=== PATIENT | male | born 1960 | race Caucasian/White ===

== ENCOUNTER → 2016-09-07 | Outpatient (CLI) | payer BC ==
--- NOTE | 2016-09-08 10:35 | PE ---
EXAMINATION TYPE: PET CT fusion skull to thigh DATE OF EXAM: 09/07/2016 11:55 AM CLINICAL HISTORY: 55-year-old male history of colon cancer, restaging. Patient with last chemotherapy on 08/20/2016. TECHNIQUE: Following the intravenous administration of 13.68 mCi of F-18 FDG, whole body images are performed from the skull base to the midthigh. Images are reviewed on the computer in the coronal, axial, and sagittal planes. Reconstructed rotating images are created on independent workstation and reviewed on the computer. A localization and attenuation correction CT is performed in conjunction with the PET scan. Glucose level: 78 mg/dL COMPARISON: 06/22/2016 FINDINGS: PET: Physiologic FDG uptake within the neck. No thoracic lymphadenopathy by CT size criteria. Bilateral hilar lymph nodes show variable mild to oralia rderline moderate hypermetabolism particularly in the right hilum, maximal SUV 3.2. This is in compar oli to maximal SUV of 2.2, previously. Some nodularity in the medial right middle lobe measures 7 mm and is smaller as compared to prior exa m suggesting an infectious/inflammatory etiology. No discrete FDG uptake. There is interval development of severe right-sided hydronephrosis. There is no excretion of FDG from the right kidney compatible with a severe obstruction. Overall soft tissue within the right pelvis is relatively similar though soft tissue extending up to the right lower retroperitoneum has increased. All of the soft tissue now shows very intense hypermet abolism, maximum SUV 18.1 in the lower retroperitoneum and 15.3 in the right pelvis. Overall dimension based on the metabolically active soft tissue is 7.7 cm AP by up to 4.2 cm wide, an d up to 7.9 cm craniocaudal. Some of these areas are discontinuous suggesting separate masses that ex tend from the right lower abdominal retroperitoneum and down into the pelvis along the anterior jose n of the right sacral ala and along the right superior perirectal region. The right ureter course since into this region. Heterogeneity with mixed lucency and sclerosis of the right sacrum is unchanged and there is no assoc iated hypermetabolism in this area. Findings suggest site of treated disease. There is focal intense FDG uptake at the distal rectum/anus, maximal SUV 9.3 versus 4.7, previously. ATTENUATION CORRECTION CT: Right anterior chest wall injection port with catheter tip at the upper SVC. Paranasal sinuses and mastoid air cells well pneumatized. No cervical lymphadenopathy seen. Heart is normal size with a new small pericardial effusion anteriorly measuring 7 mm thick. Aortic ro ot is borderline ectatic at 3.5 cm. 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 No consolidation or pleural effusion. Moderate bilat eral gynecomastia. The spleen remains mildly enlarged at 14.7 cm. Benign ametabolic 1.9 cm cyst in the central right hep atic lobe. Bones: No new osseous destructive process is seen. IMPRESSION: 1. Disease recurrence with the previously seen soft tissue in the right pelvis abutting the anterior margin of the right sacral ala and extending to the superior right perirectal space now showing very intense hypermetabolism. There is new upward extension of mass or lymphadenopathy to the lower right retroperitoneum with an aggregate craniocaudal dimension of up to 7.9 cm. 2. The right ureter courses into this mass resulting in a severe obstructive uropathy. 3. Focal intense hypermetabolism at the distal rectum/anus shows increasing FDG uptake. This may be p hysiologic or represent some inflammation. Correlate with direct visualization to exclude a site of n eoplasm. 4. Variable mild and borderline moderate FDG uptake within nonenlarged bilateral hilar lymph nodes is likely reactive/post inflammatory. Continued follow-up recommended as a right hilar lymph node shows increasing uptake (maximal SUV 3.2 versus 2.2, previously).
== END | disposition home or self-care (01) ==
LOC: RADPETMAIN 08:27
PROVIDERS: ATTEND Internal Medicine Hematology & Oncology
DX: C18.9 Malignant neoplasm of colon, unspecified (principal); N13.9 Obstructive and reflux uropathy, unspecified
CPT/HCPCS: 78815; A9552

== ENCOUNTER → 2016-11-30 | Outpatient (CLI) | payer BC ==
--- NOTE | 2016-12-01 09:32 | PE ---
EXAMINATION TYPE: PET CT fusion skull to thigh DATE OF EXAM: 11/30/2016 11:20 AM CLINICAL HISTORY: 56-year-old male restaging colon cancer, last chemotherapy on 11/20/2016. TECHNIQUE: Following the intravenous administration of 15.5 mCi of F-18 FDG, whole body images are performed from the skull base to the midthigh. Images are reviewed on the computer in the coronal, a xial, and sagittal planes. Reconstructed rotating images are created on independent workstation and reviewed on the computer. A localization and attenuation correction CT is performed in conjunction with the PET scan. Glucose level: 80 mg/dL COMPARISON: 09/07/2016 FINDINGS: PET: There is linear muscular uptake involving the middle or posterior left scalene in the neck. Otherwise , physiologic FDG uptake within the neck. There is variable residual mild FDG uptake within bilateral hilar lymph nodes, decreased from prior m easuring up to 1.7 on the right and 1.9 on the left, maximum SUV. This is most suggestive of reactive /post inflammatory uptake. A 2 cm a metabolic cyst central right hepatic lobe may be minimally larger. Redemonstrated severe hydronephrosis on the right with hydroureter with the ureter coursing into rigoberto lomerate right sided intensely hypermetabolic soft tissue, likely lymphadenopathy along the lower rig ht retroperitoneum along the common iliac chain. This abnormal soft tissue continues down along the right pelvic sidewall to the right superior perire ctal space abutting the anterior margin of the right sacral ala. Overall extent of soft tissue is rel atively similar, measuring up to 5.5 cm AP by 3.3 cm wide by 9.0 cm craniocaudal. This is in comparis on to 7.7 x 4.2 x 7.9 cm, previously. Overall unchanged allowing for some differences in measurement technique. Maximal SUV of the lower right retroperitoneum conglomerate mass is 15.4 versus 18.1, previously and in the right pelvis is 13.3 versus 15.3, previously. A new right pelvic sidewall lymph node now measures 1.7 cm, axial image 202 with intense hypermetabol ism, maximum SUV 6.8. Some focal uptake within the left pelvis likely activity within the distal ureter. There is a nonenlarged 7 mm left inguinal chain lymph node that shows mild FDG uptake, maximal SUV 2. 8, new from prior exam. Presacral edema and soft tissue tissue stranding throughout the fat of the pelvis likely relates to p osttreatment change. There is a staple line relating to distal rectal anastomosis and chronic bony de formity to the ischial spine and right sacrum from prior disease involvement. Currently, no suspiciou s metabolic activity here. Continued intense hypermetabolism along the rectum now involving a longer segment, maximal SUV 9.6 ve rsus 9.3, previously. ATTENUATION CORRECTION CT: Right anterior chest wall injection port with catheter tip at the upper to mid SVC. Moderate mucosal thickening floor of the left maxillary sinus and mild on the right. Mastoid air cell s are pneumatized. No cervical lymphadenopathy. Heart is normal size with trace residual pericardial fluid, decreased from prior. Ascending aorta aga in noted to be borderline ectatic at 3.5 cm. There is right-sided aortic arch with aberrant left subc lavian artery arising from a diverticulum of Kommerell. Redemonstrated moderate bilateral gynecomast ia. No consolidation or pleural effusion. Gallbladder is mildly hydropic without pericholecystic inflammation. Spleen remains enlarged at 14.4 cm. No dilated small bowel, free fluid, or free air. Bones: Chronic bony changes of the right ischium and right sacrum as mentioned above. No new osseous destructive process is seen. IMPRESSION: 1. Continued very intense hypermetabolism involving a conglomerate mass extending from the lower righ t retroperitoneum down along the right pelvic sidewall along the anterior margin of the right sacral ala and to the superior right perirectal space spanning nearly 9 cm. SUV values have decreased by a n egligible amount and overall measurements are relatively similar. 2. In addition, there is a new 7 mm intensely hypermetabolic right pelvic sidewall metastatic lymph n ode and suspicious 7 mm left inguinal chain lymph node as well. 3. Continued intense FDG uptake now involving a longer segment of rectum which is nonspecific. This c ould be physiologic or could represent colitis. Again, correlate with direct visualization to exclude a second site of neoplasm. 4. The right ureter again noted to course into the abnormal soft tissue with continued severe obstruc tive uropathy. 5. Previous bilateral hilar hypermetabolism has diminished suggesting benign reactive/post inflammato ry uptake here. 6. Gallbladder hydrops may relate to fasting state. If there is right upper quadrant pain or concern for early acute cholecystitis, follow-up ultrasound or HIDA scan. 7. Stable mild splenomegaly.
== END | disposition home or self-care (01) ==
LOC: RADPETMAIN 08:24
PROVIDERS: ATTEND Internal Medicine Hematology & Oncology
DX: C77.5 Secondary and unspecified malignant neoplasm of intrapelvic lymph nodes (principal); C18.9 Malignant neoplasm of colon, unspecified; N13.9 Obstructive and reflux uropathy, unspecified; K82.1 Hydrops of gallbladder; R16.1 Splenomegaly, not elsewhere classified
CPT/HCPCS: 78815; A9552

== ENCOUNTER → 2017-03-22 | Outpatient (CLI) | payer BC ==
--- NOTE | 2017-03-24 12:15 | PE ---
Nuclear medicine PET/CT HISTORY: Colon carcinoma Patient received 11.7 mCi F-18 FDG intravenously and delayed scanning performed from the skull base t hrough the mid thighs. Localization and attenuation correction CT scan was performed. Correlation to prior nuclear medicine PET/CT dated 11/30/2016 Neck and chest: There is no evident lung mass. No adenopathy. Right-sided thoracic aorta is present w ith aberrant left subclavian artery. No pleural or pericardial effusion. Port-A-Cath in the right pec jenny region shows catheter coursing into the right internal jugular vein, distal tip in the superior vena cava. Possible gynecomastia noted bilaterally. Abdomen pelvis: There is marked right-sided hydronephrosis and hydroureter present, pooling of the ra diopharmaceutical noted in the distal dilated right ureter. Urinary bladder shows a thickened wall, t here are prostate calcifications as on prior exam. Postop changes in the rectosigmoid region again se en. There is no retroperitoneal adenopathy. Spleen is enlarged. Low dense focus again noted within th e right lobe of liver is stable. Focus of uptake corresponding to right external iliac lymph node in the right hemipelvis is not seen on today's exam, the lymph node has decreased in size. Presacral upt svetlana is less significant, soft tissue density persists, SUV is 4.9. Uptake at the level of the rectum is somewhat less extensive.. Osseous structures are stable. Increased uptake in the left shoulder likely due to muscular activity, arthropathy. IMPRESSION: Improvement in hypermetabolic uptake in the pelvis as described.
== END | disposition home or self-care (01) ==
LOC: RADPETMAIN 09:28
PROVIDERS: ATTEND Internal Medicine Hematology & Oncology
DX: C18.7 Malignant neoplasm of sigmoid colon (principal)
CPT/HCPCS: 78815; A9552

== ENCOUNTER 2018-01-11 10:14 | Inpatient (IN) | payer BC ==
[2018-01-11] MEDS ORDERED: SODIUM CHLORIDE 0.9% 2,000 ML IV STA (10:32)
[2018-01-11] MEDS ORDERED: MORPHINE SULFATE 4 MG/ML SYRINGE IV STA (10:32)
[2018-01-11] MEDS ORDERED: ACETAMINOPHEN TAB 500 MG TAB PO STA (10:34)
[2018-01-11] MEDS ORDERED: LIDOCAINE 2% GEL 5 ML TUBE TOPICAL STA (10:35)
[2018-01-11] MEDS ORDERED: LIDOCAINE VISCOUS 2% 15 ML CUP MUCOUS MEM ONE (10:37)
--- NOTE | 2018-01-11 10:42 | ED ---
Abdominal Pain HPI - General Source: patient, RN notes reviewed, old records reviewed Mode of arrival: ambulatory Limitations: no limitations <Sis Alves - Last Filed: 01/11/18 15:48> <Tello Olivia - Last Filed: 01/17/18 09:52> - General Chief Complaint: Abdominal Pain Stated Complaint: Pain/Fever/Nausea Time Seen by Provider: 01/11/18 10:21 - History of Present Illness Initial Comments: this is a pleasant [id number] male with chief complaint of right lower quadrant pain radiating towards his right upper quadrant since 9 PM yesterday evening. Patient reports that he has had a fever and chills. He states that ge has vomited a proximally 45 times. He states that due to where the tumor was on his: He had an obstruction of his right ureter. He subsequently developed loss of his right kidney function. Patient states that he was evaluated at [facility] for similar complaints in May 2017. Then transferred [facility] and was in the ICU for 20 days. Patient states that he's had a colon resection in [address] Sanz. He states he's had no bloody bowel movements. Denies any urinary changes. Denies any upper respiratory symptoms including chest pain, shortness of breath.Patient's oncologist is Dr. Tariq. (Sis Alves) - Related Data Home Medications Medication Instructions Recorded Confirmed Apixaban [Eliquis] 2.5 mg PO BID 01/11/18 01/16/18 Capecitabine [Xeloda] 2,000 mg PO BID 01/11/18 01/16/18 Diphenox-Atrop 2.5-0.025 mg 1 tab PO QID PRN 01/11/18 01/16/18 [Lomotil] Gabapentin [Neurontin] 100 mg PO DAILY@1200 01/11/18 01/16/18 Gabapentin [Neurontin] 200 mg PO BID 01/11/18 01/16/18 oxyCODONE-APAP 10-325MG [Percocet 1 - 2 tab PO Q6HR PRN 01/11/18 01/16/18 10-325 mg] Previous Rx's Medication Instructions Recorded Levofloxacin [Levaquin] 500 mg PO DAILY@1200 #7 tab 01/14/18 Tamsulosin [Flomax] 0.4 mg PO PC-BRKFST #30 cap.er.24h 01/14/18 Allergies Allergy/AdvReac Type Severity Reaction Status Date / Time No Known Allergies Allergy Verified 01/16/18 13:04 Review of Systems ROS Other: All systems not noted in ROS Statement are negative. <Sis Alves - Last Filed: 01/11/18 15:48> ROS Other: All systems not noted in ROS Statement are negative. <Tello Olivia - Last Filed: 01/17/18 09:52> ROS Statement: Those systems with pertinent positive or pertinent negative responses have been documented in the HPI. Past Medical History Past Medical History: Cancer Additional Past Medical History / Comment(s): colon cancer, right sided kidney failure History of Any Multi-Drug Resistant Organisms: C-DIFF Date of last positivie culture/infection: 2015 Past Surgical History: Bowel Resection Past Psychological History: No Psychological Hx Reported Smoking Status: Never smoker Past Alcohol Use History: None Reported Past Drug Use History: None Reported <LongSis perez - Last Filed: 01/11/18 15:48> General Exam Limitations: no limitations General appearance: alert, in no apparent distress Head exam: Present: atraumatic, normocephalic, normal inspection Eye exam: Present: normal appearance, PERRL, EOMI. Absent: scleral icterus, conjunctival injection, periorbital swelling ENT exam: Present: normal exam, mucous membranes moist Neck exam: Present: normal inspection. Absent: tenderness, meningismus, lymphadenopathy Respiratory exam: Present: normal lung sounds bilaterally. Absent: respiratory distress, wheezes, rales, rhonchi, stridor Cardiovascular Exam: Present: regular rate, normal rhythm, normal heart sounds. Absent: systolic murmur, diastolic murmur, rubs, gallop, clicks GI/Abdominal exam: Present: soft, tenderness (patient is guarding and right lower quadrant tenderness.), guarding, normal bowel sounds, other (well- appearing incision site over the mid abdomen.). Absent: distended, rebound, rigid Extremities exam: Present: normal inspection, full ROM, normal capillary refill. Absent: tenderness, pedal edema, joint swelling, calf tenderness Back exam: Present: normal inspection Neurological exam: Present: alert, oriented X3, CN II-XII intact Psychiatric exam: Present: normal affect, normal mood Skin exam: Present: warm, dry, intact, normal color. Absent: rash <Sis Alves - Last Filed: 01/11/18 15:48> <Tello Olivia - Last Filed: 01/17/18 09:52> - General Exam Comments Initial Comments: 57-year-old male. Patient appears in moderate discomfort. (Sis Alves) Course <Sis Alves - Last Filed: 01/11/18 15:48> <Tello Olivia - Last Filed: 01/17/18 09:52> Vital Signs 01/11/18 01/11/18 01/11/18 10:14 13:19 14:46 Temperature 100.3 F H 101.1 F H 100.1 F H Pulse Rate 83 78 Respiratory 18 20 Rate Blood Pressure 167/88 151/77 O2 Sat by Pulse 100 99 Oximetry 01/11/18 01/11/18 15:56 16:07 Temperature 98.9 F Pulse Rate 67 60 Respiratory 18 18 Rate Blood Pressure 159/75 148/78 O2 Sat by Pulse 98 98 Oximetry - Reevaluation(s) Reevaluation #1: 01/11/18 15:30 Patient was reevaluated by myself, Dr. Olivia. Patient still has significant discomfort when questioned about his abdomen. Abdomen is soft with mild tenderness. CT results reviewed. Patient and family updated on results and plan. Case was discussed in detail with Dr. Frost, covering for Dr. Tariq who does recommend medical admission and does agree with IV antibiotics and neurology consult. Dr. Hay has been paged for admission for Dr. Russ. 01/11/18 15:38 Patient does not meet sepsis criteria at this time. 01/11/18 16:00 Case was discussed with Dr. Hay, who will admit. (Tello Olivia) Medical Decision Making - Lab Data Result diagrams: 01/11/18 10:57 01/11/18 10:57 - Radiology Data Radiology results: report reviewed <Sis Alves - Last Filed: 01/11/18 15:48> - Lab Data Result diagrams: 01/13/18 07:31 01/13/18 07:31 <Tello Olivia - Last Filed: 01/17/18 09:52> - Medical Decision Making 57-year-old male presents to the emergency Department chief complaint of right lower quadrant pain and fever. He wrestled fever 100.4. After Tylenol was 101. Patient was given aggressive fluid hydration. He does have history of colon cancer with resection in 2013. Patient's labwork was reviewed and negative for any significant changes, he did have evidence of a urinary tract infection. Started the patient on Levaquin. Patient CT was performed without contrast this patient informed me that he has right sided kidney failure due to his colon cancer. CT did not show any major infectious process. At this time we will admit the patient and have counseled to Dr. Tariq his oncologist and urology. All questions answered. (Sis Alves) - Lab Data Lab Results 01/11/18 01/11/18 01/11/18 Range/Units 10:57 10:57 10:57 WBC 8.7 (3.8-10.6) k/uL RBC 3.99 L (4.30-5.90) m/uL Hgb 13.7 (13.0-17.5) gm/dL Hct 38.8 L (39.0-53.0) % MCV 97.1 (80.0-100.0) fL MCH 34.2 (25.0-35.0) pg MCHC 35.2 (31.0-37.0) g/dL RDW 17.7 H (11.5-15.5) % Plt Count 153 (150-450) k/uL Neutrophils % 87 % Lymphocytes % 6 % Monocytes % 5 % Eosinophils % 2 % Basophils % 0 % Neutrophils # 7.5 (1.3-7.7) k/uL Lymphocytes # 0.5 L (1.0-4.8) k/uL Monocytes # 0.5 (0-1.0) k/uL Eosinophils # 0.2 (0-0.7) k/uL Basophils # 0.0 (0-0.2) k/uL Anisocytosis Slight Macrocytosis Slight Sodium 141 (137-145) mmol/L Potassium 5.1 (3.5-5.1) mmol/L Chloride 104 (98-107) mmol/L Carbon Dioxide 23 (22-30) mmol/L Anion Gap 14 mmol/L BUN 19 (9-20) mg/dL Creatinine 1.01 (0.66-1.25) mg/dL Est GFR (CKD-EPI)AfAm >90 (>60 ml/min/1.73 sqM) Est GFR (CKD-EPI)NonAf 81 (>60 ml/min/1.73 sqM) Glucose 150 H (74-99) mg/dL Plasma Lactic Acid Ruel 1.5 (0.7-2.0) mmol/L Calcium 9.6 (8.4-10.2) mg/dL Total Bilirubin 1.9 H (0.2-1.3) mg/dL AST 41 (17-59) U/L ALT 27 (21-72) U/L Alkaline Phosphatase 62 (38-126) U/L Total Protein 8.4 H (6.3-8.2) g/dL Albumin 4.8 (3.5-5.0) g/dL Amylase 47 (30-110) U/L Lipase 36 (23-300) U/L Urine Color Urine Appearance (Clear) Urine pH (5.0-8.0) Ur Specific Custer (1.001-1.035) Urine Protein (Negative) Urine Glucose (UA) (Negative) Urine Ketones (Negative) Urine Blood (Negative) Urine Nitrite (Negative) Urine Bilirubin (Negative) Urine Urobilinogen (<2.0) mg/dL Ur Leukocyte Esterase (Negative) Urine RBC (0-5) /hpf Urine WBC (0-5) /hpf Amorphous Sediment (None) /hpf Hyaline Casts (0-2) /lpf Urine Mucus (None) /hpf 01/11/18 Range/Units 14:43 WBC (3.8-10.6) k/uL RBC (4.30-5.90) m/uL Hgb (13.0-17.5) gm/dL Hct (39.0-53.0) % MCV (80.0-100.0) fL MCH (25.0-35.0) pg MCHC (31.0-37.0) g/dL RDW (11.5-15.5) % Plt Count (150-450) k/uL Neutrophils % % Lymphocytes % % Monocytes % % Eosinophils % % Basophils % % Neutrophils # (1.3-7.7) k/uL Lymphocytes # (1.0-4.8) k/uL Monocytes # (0-1.0) k/uL Eosinophils # (0-0.7) k/uL Basophils # (0-0.2) k/uL Anisocytosis Macrocytosis Sodium (137-145) mmol/L Potassium (3.5-5.1) mmol/L Chloride (98-107) mmol/L Carbon Dioxide (22-30) mmol/L Anion Gap mmol/L BUN (9-20) mg/dL Creatinine (0.66-1.25) mg/dL Est GFR (CKD-EPI)AfAm (>60 ml/min/1.73 sqM) Est GFR (CKD-EPI)NonAf (>60 ml/min/1.73 sqM) Glucose (74-99) mg/dL Plasma Lactic Acid Ruel (0.7-2.0) mmol/L Calcium (8.4-10.2) mg/dL Total Bilirubin (0.2-1.3) mg/dL AST (17-59) U/L ALT (21-72) U/L Alkaline Phosphatase (38-126) U/L Total Protein (6.3-8.2) g/dL Albumin (3.5-5.0) g/dL Amylase (30-110) U/L Lipase (23-300) U/L Urine Color Yellow Urine Appearance Clear (Clear) Urine pH 5.5 (5.0-8.0) Ur Specific Custer 1.022 (1.001-1.035) Urine Protein 1+ H (Negative) Urine Glucose (UA) Negative (Negative) Urine Ketones Negative (Negative) Urine Blood Small H (Negative) Urine Nitrite Negative (Negative) Urine Bilirubin Negative (Negative) Urine Urobilinogen <2.0 (<2.0) mg/dL Ur Leukocyte Esterase Small H (Negative) Urine RBC 5 (0-5) /hpf Urine WBC 36 H (0-5) /hpf Amorphous Sediment Rare H (None) /hpf Hyaline Casts 3 H (0-2) /lpf Urine Mucus Occasional H (None) /hpf - Radiology Data Findings compatible with patient's history of metastatic colon carcinoma. There has been interval increase in markedly hydro-nephrotic right kidney and hydroureter. There is likely secondary involvement of the ureter. Splenomegaly. Noncontrast exam noted. (Sis Alves) Disposition Is patient prescribed a controlled substance at d/c from ED?: No When asked, does pt state using other controlled substances?: No If prescribed controlled substance>3 days was MAPS reviewed?: No Time of Disposition: 15:51 <Sis Alves - Last Filed: 01/11/18 15:48> Is patient prescribed a controlled substance at d/c from ED?: No <Tello Olivia - Last Filed: 01/17/18 09:52> Clinical Impression: RLQ abdominal pain, UTI (urinary tract infection) Disposition: ADMITTED IP TO THIS HOSP Condition: Good
[2018-01-11] MEDS: ONDANSETRON 4 MG/2 ML VIAL IVP STA ×2 (11:00→13:28)
[2018-01-11 11:04] LABS: Anisocytosis Slight; Basophils % (A) 0 %; Eosinophils # (A) 0.2 k/uL (0-0.7); Eosinophils % (A) 2 %; HCT 38.8 % (39.0-53.0); HGB 13.7 gm/dL (13.0-17.5); Lymphocytes # (A) 0.5 k/uL (1.0-4.8); Lymphocytes % (A) 6 %; MCH 34.2 pg (25.0-35.0); MCHC 35.2 g/dL (31.0-37.0); MCV 97.1 fL (80.0-100.0); Macrocytosis Slight; Mean Platelet Volume 6.8; Monocytes # (A) 0.5 k/uL (0-1.0); Monocytes % (A) 5 %; Neutrophils # (A) 7.5 k/uL (1.3-7.7); Neutrophils % (A) 87 %; Platelet Count 153 k/uL (150-450); RBC 3.99 m/uL (4.30-5.90); RDW 17.7 % (11.5-15.5); WBC 8.7 k/uL (3.8-10.6)
[2018-01-11 11:16] LABS: Albumin 4.8 g/dL (3.5-5.0); Amylase 47 U/L (30-110); Anion Gap 14 mmol/L; Calcium 9.6 mg/dL (8.4-10.2); Carbon Dioxide 23 mmol/L (22-30); Chloride 104 mmol/L (98-107); Glucose 150 mg/dL (74-99); Lipase 36 U/L (23-300); Sodium 141 mmol/L (137-145); Total Bilirubin 1.9 mg/dL (0.2-1.3); Total Protein 8.4 g/dL (6.3-8.2)
[2018-01-11 11:20] LABS: ALT 27 U/L (21-72); AST 41 U/L (17-59); Alkaline Phosphatase 62 U/L (38-126); Blood Urea Nitrogen 19 mg/dL (9-20); Potassium 5.1 mmol/L (3.5-5.1)
--- NOTE | 2018-01-11 11:56 | CT ---
EXAMINATION TYPE: CT abdomen pelvis wo con DATE OF EXAM: 01/11/2018 COMPARISON: Nuclear medicine PET/CT 08/02/2017 HISTORY: Right lower quadrant pain, colon cancer CT DLP: 988.1 mGycm Automated exposure control for dose reduction was used. TECHNIQUE: Helical acquisition of images from the lung bases through the pelvis. FINDINGS: There are changes of gynecomastia. Lack of contrast may compromise sensitivity of the exam. LUNG BASES: No significant abnormality is appreciated. AORTA: Right-sided aorta again noted. There is no aneurysm. LIVER/GB: Cystic focus within the liver is stable, gallbladder is unremarkable.. PANCREAS: No significant abnormality is seen. SPLEEN: Enlarged ADRENALS: No significant abnormality is seen. KIDNEYS: There is an interval increase in size in the obstructed right kidney with marked hydronephro sis and loss of normal renal architecture, the kidney shows very little normal parenchyma. REPRODUCTIVE ORGANS: No significant abnormality is seen. URINARY BLADDER: No significant abnormality is seen. BOWEL: No significant abnormality is seen. FREE AIR: No Free Air is visible. ASCITES: None visible. PELVIC ADENOPATHY: Ill-defined presacral soft tissue is again noted. Postop changes are noted to the rectosigmoid junction level of the colon.. RETROPERITONEAL ADENOPATHY: No Retroperitoneal Adenopathy visible. OSSEOUS STRUCTURES: Distortion of the sacrum, lower lumbar spine and pelvis is again noted. IMPRESSION: FINDINGS COMPATIBLE WITH PATIENT'S HISTORY OF METASTATIC COLON CARCINOMA. THERE IS BEEN INTERVAL INCR EASE IN SIZE OF THE MARKEDLY HYDRONEPHROTIC RIGHT KIDNEY AND HYDROURETER. THERE IS LIKELY SECONDARY I NVOLVEMENT OF THE URETER. SPLENOMEGALY. NONCONTRAST EXAM.
[2018-01-11] MEDS ORDERED: SODIUM CHLORIDE 0.9% 1,000 ML IV ONE (13:21)
[2018-01-11] MEDS ORDERED: MORPHINE SULFATE 4 MG/ML SYRINGE IVP STA (13:21)
[2018-01-11 15:05] LABS: Amorphous Sediment,Urine Rare /hpf; Appearance,Urine Clear (Clear); Bilirubin,Urine Negative (Negative); Blood,Urine Small (Negative); Color,Urine Yellow; Glucose,Urine (UA) Negative (Negative); Hyaline Casts,Urine 3 /lpf (0-2); Ketones,Urine Negative (Negative); Leukocyte Esterase,Urine Small (Negative); Mucus,Urine Occasional /hpf; Nitrite,Urine Negative (Negative); PH, Urine 5.5 (5.0-8.0); Protein,Urine 1+ (Negative); RBC,Urine 5 /hpf (0-5); Specific Gravity,Urine 1.022 (1.001-1.035); Urobilinogen,Urine <2.0 mg/dL (<2.0); WBC,Urine 36 /hpf (0-5)
[2018-01-11] MEDS ORDERED: LEVOFLOXACIN 750MG-D5W PMX 750 MG in DEXTROSE/WATER 1 150ML.BAG IVPB STA (15:10)
[2018-01-11] MEDS ORDERED: NALOXONE 0.4 MG/ML 1 ML VIAL IV PRN (15:52)
[2018-01-11] MEDS ORDERED: BISACODYL 5 MG TABLET.DR PO PRN (15:52)
[2018-01-11] MEDS ORDERED: ACETAMINOPHEN TAB 325 MG TAB PO PRN (15:52)
[2018-01-11] MEDS ORDERED: IBUPROFEN 400 MG TAB PO PRN (15:52)
[2018-01-11] MEDS: KETOROLAC 30 MG/ML 1 ML VIAL IVP PRN ×2 (15:57→21:34)
[2018-01-11] MEDS: MORPHINE SULFATE 4 MG/ML SYRINGE IV PRN ×2 (15:57→19:39)
--- NOTE | 2018-01-11 16:06 | ED ---
Medical Decision Making - Lab Data Result diagrams: 01/11/18 10:57 01/11/18 10:57 Lab Results 01/11/18 01/11/18 01/11/18 Range/Units 10:57 10:57 10:57 WBC 8.7 (3.8-10.6) k/uL RBC 3.99 L (4.30-5.90) m/uL Hgb 13.7 (13.0-17.5) gm/dL Hct 38.8 L (39.0-53.0) % MCV 97.1 (80.0-100.0) fL MCH 34.2 (25.0-35.0) pg MCHC 35.2 (31.0-37.0) g/dL RDW 17.7 H (11.5-15.5) % Plt Count 153 (150-450) k/uL Neutrophils % 87 % Lymphocytes % 6 % Monocytes % 5 % Eosinophils % 2 % Basophils % 0 % Neutrophils # 7.5 (1.3-7.7) k/uL Lymphocytes # 0.5 L (1.0-4.8) k/uL Monocytes # 0.5 (0-1.0) k/uL Eosinophils # 0.2 (0-0.7) k/uL Basophils # 0.0 (0-0.2) k/uL Anisocytosis Slight Macrocytosis Slight Sodium 141 (137-145) mmol/L Potassium 5.1 (3.5-5.1) mmol/L Chloride 104 (98-107) mmol/L Carbon Dioxide 23 (22-30) mmol/L Anion Gap 14 mmol/L BUN 19 (9-20) mg/dL Creatinine 1.01 (0.66-1.25) mg/dL Est GFR (CKD-EPI)AfAm >90 (>60 ml/min/1.73 sqM) Est GFR (CKD-EPI)NonAf 81 (>60 ml/min/1.73 sqM) Glucose 150 H (74-99) mg/dL Plasma Lactic Acid Ruel 1.5 (0.7-2.0) mmol/L Calcium 9.6 (8.4-10.2) mg/dL Total Bilirubin 1.9 H (0.2-1.3) mg/dL AST 41 (17-59) U/L ALT 27 (21-72) U/L Alkaline Phosphatase 62 (38-126) U/L Total Protein 8.4 H (6.3-8.2) g/dL Albumin 4.8 (3.5-5.0) g/dL Amylase 47 (30-110) U/L Lipase 36 (23-300) U/L Urine Color Urine Appearance (Clear) Urine pH (5.0-8.0) Ur Specific [place] (1.001-1.035) Urine Protein (Negative) Urine Glucose (UA) (Negative) Urine Ketones (Negative) Urine Blood (Negative) Urine Nitrite (Negative) Urine Bilirubin (Negative) Urine Urobilinogen (<2.0) mg/dL Ur Leukocyte Esterase (Negative) Urine RBC (0-5) /hpf Urine WBC (0-5) /hpf Amorphous Sediment (None) /hpf Hyaline Casts (0-2) /lpf Urine Mucus (None) /hpf 01/11/18 Range/Units 14:43 WBC (3.8-10.6) k/uL RBC (4.30-5.90) m/uL Hgb (13.0-17.5) gm/dL Hct (39.0-53.0) % MCV (80.0-100.0) fL MCH (25.0-35.0) pg MCHC (31.0-37.0) g/dL RDW (11.5-15.5) % Plt Count (150-450) k/uL Neutrophils % % Lymphocytes % % Monocytes % % Eosinophils % % Basophils % % Neutrophils # (1.3-7.7) k/uL Lymphocytes # (1.0-4.8) k/uL Monocytes # (0-1.0) k/uL Eosinophils # (0-0.7) k/uL Basophils # (0-0.2) k/uL Anisocytosis Macrocytosis Sodium (137-145) mmol/L Potassium (3.5-5.1) mmol/L Chloride (98-107) mmol/L Carbon Dioxide (22-30) mmol/L Anion Gap mmol/L BUN (9-20) mg/dL Creatinine (0.66-1.25) mg/dL Est GFR (CKD-EPI)AfAm (>60 ml/min/1.73 sqM) Est GFR (CKD-EPI)NonAf (>60 ml/min/1.73 sqM) Glucose (74-99) mg/dL Plasma Lactic Acid Ruel (0.7-2.0) mmol/L Calcium (8.4-10.2) mg/dL Total Bilirubin (0.2-1.3) mg/dL AST (17-59) U/L ALT (21-72) U/L Alkaline Phosphatase (38-126) U/L Total Protein (6.3-8.2) g/dL Albumin (3.5-5.0) g/dL Amylase (30-110) U/L Lipase (23-300) U/L Urine Color Yellow Urine Appearance Clear (Clear) Urine pH 5.5 (5.0-8.0) Ur Specific [place] 1.022 (1.001-1.035) Urine Protein 1+ H (Negative) Urine Glucose (UA) Negative (Negative) Urine Ketones Negative (Negative) Urine Blood Small H (Negative) Urine Nitrite Negative (Negative) Urine Bilirubin Negative (Negative) Urine Urobilinogen <2.0 (<2.0) mg/dL Ur Leukocyte Esterase Small H (Negative) Urine RBC 5 (0-5) /hpf Urine WBC 36 H (0-5) /hpf Amorphous Sediment Rare H (None) /hpf Hyaline Casts 3 H (0-2) /lpf Urine Mucus Occasional H (None) /hpf Disposition Clinical Impression: RLQ abdominal pain, UTI (urinary tract infection), Sepsis Disposition: ADMITTED IP TO THIS HOSP Condition: Good Instructions: Abdominal Pain (ED) Referrals: Mick Russ MD [Primary Care Provider] - 1-2 days
[2018-01-11 16:37] VITALS: BMI 27.8
[2018-01-11] MEDS: SODIUM CHLORIDE 0.9% 1,000 ML IV SCH (16:43)
[2018-01-12] MEDS: MORPHINE SULFATE 4 MG/ML SYRINGE IV PRN ×3 (00:56→11:01)
[2018-01-12] MEDS: KETOROLAC 30 MG/ML 1 ML VIAL IVP PRN ×4 (04:00→22:39)
[2018-01-12] MEDS: SODIUM CHLORIDE 0.9% 1,000 ML IV SCH ×3 (04:01→22:11)
[2018-01-12] MEDS: ONDANSETRON 4 MG/2 ML VIAL IVP PRN ×3 (05:33→22:39)
[2018-01-12 07:06] LABS: ALT 27 U/L (21-72); AST 20 U/L (17-59); Albumin 3.4 g/dL (3.5-5.0); Alkaline Phosphatase 50 U/L (38-126); Anion Gap 11 mmol/L; Anisocytosis Slight; Basophils % (A) 0 %; Blood Urea Nitrogen 19 mg/dL (9-20); Calcium 8.7 mg/dL (8.4-10.2); Carbon Dioxide 24 mmol/L (22-30); Chloride 105 mmol/L (98-107); Eosinophils % (A) 1 %; Glucose 117 mg/dL (74-99); HCT 33.1 % (39.0-53.0); HGB 11.2 gm/dL (13.0-17.5); Lymphocytes # (A) 0.7 k/uL (1.0-4.8); Lymphocytes % (A) 8 %; MCH 34.2 pg (25.0-35.0); MCHC 33.8 g/dL (31.0-37.0); Macrocytosis Moderate; Monocytes # (A) 0.4 k/uL (0-1.0); Monocytes % (A) 5 %; Neutrophils # (A) 7.5 k/uL (1.3-7.7); Neutrophils % (A) 86 %; Platelet Count 100 k/uL (150-450); RBC 3.28 m/uL (4.30-5.90); RDW 18.8 % (11.5-15.5); Sodium 140 mmol/L (137-145); Total Bilirubin 1.3 mg/dL (0.2-1.3); Total Protein 6.3 g/dL (6.3-8.2); WBC 8.6 k/uL (3.8-10.6)
[2018-01-12] MEDS ORDERED: PANTOPRAZOLE 40 MG/10 ML VIAL IV SCH (09:00)
[2018-01-12] MEDS ORDERED: DIPHENOX-ATROP 2.5-0.025 MG 1 EACH TAB PO PRN (11:11)
[2018-01-12] MEDS ORDERED: oxyCODONE-APAP 10-325MG 1 EACH TAB PO PRN (11:11)
[2018-01-12] MEDS ORDERED: MORPHINE ORAL SOLN 10 MG/5 ML CUP PO PRN (11:24)
[2018-01-12] MEDS ORDERED: LEVOFLOXACIN 500MG-D5W PMX 500 MG in DEXTROSE/WATER 1 100ML.BAG IVPB SCH (12:00)
[2018-01-12] MEDS: GABAPENTIN 100 MG CAP PO SCH ×2 (12:19→20:35)
--- NOTE | 2018-01-12 13:53 | P.HPIM ---
History of Present Illness H&P Date: 01/12/18 Chief Complaint: Abdominal pain, pyelonephritis, hydronephrosis of the right side,: Cancer w 57-year-old male one of Dr. Russ patient who seen Dr. Chandni barker who was diagnosed with colon cancer back in 2012 after partial resection with Dr. Sanz patient ended up doing chemotherapy and surprisingly found to have an advanced metastatic disease was diagnosed as a stage IV: Cancer. Patient had hydronephrosis of the right side from metastasis and enlarged lymph node would attempt to do stent by urology in town and was sent to have a fourth and had no successful result from it continue to have hydronephrosis of the right side compared to the left from metastasis disease. Patient has been doing well until the last 48 hours when he developed to have fever chills nausea and vomiting many times within 2 days with his symptoms become worse ended up coming to the emergency department at [facility] where was seen and evaluated found to have UTI with with CT showing hydronephrosis of the right side as well and this is most likely pyelonephritis with upper urinary tract infection. Patient was giving 1 dose of IV Levaquin admitted to the hospital consult urology and oncology. Review of Systems Constitutional: Reports anorexia, Reports fatigue, Reports malaise, Denies as per HPI, Denies chills, Denies chronic headaches, Denies chronic pain, Denies daytime sleepiness, Denies fever, Denies lethargy, Denies night sweats, Denies poor appetite, Denies sweats, Denies weakness, Denies weight gain, Denies weight loss Eyes: bilateral as per HPI Ears, nose, mouth and throat: Reports sinus pressure, Reports swelling in mouth , Denies as per HPI, Denies ant. neck pain, Denies bleeding gums, Denies dental pain, Denies dysphagia, Denies epistaxis, Denies headache, Denies hoarseness, Denies mouth pain, Denies nasal congestion, Denies nasal discharge, Denies neck fullness/pressure, Denies neck lump, Denies nose pain, Denies odynophagia, Denies post-nasal drip, Denies sinus pain, Denies swelling in throat, Denies sore throat, Denies vertigo, Denies voice changes Cardiovascular: Reports decreased exercise tolerance, Reports dyspnea on exertion, Reports edema, Reports high blood pressure, Denies as per HPI, Denies chest pain, Denies claudication, Denies irregular heart beat, Denies leg edema, Denies lightheadedness, Denies orthopnea, Denies palpitations, Denies paroxysmal nocturnal dyspnea, Denies phlebitis, Denies rapid heart beat, Denies shortness of breath, Denies syncope Respiratory: Reports congestion, Reports cough, Denies as per HPI, Denies cough with sputum, Denies dyspnea, Denies excessive sputum, Denies hemoptysis, Denies home oxygen, Denies pain, Denies pain on inspiration, Denies pleurisy, Denies respiratory infections, Denies sleep apnea, Denies snoring, Denies wheezing Gastrointestinal: Reports abdominal pain, Reports bloating, Reports diarrhea, Reports dyspepsia, Reports excessive gas, Reports vomiting, Denies as per HPI, Denies belching, Denies BRBPR, Denies change in bowel habits, Denies coffee ground emesis, Denies constipation, Denies early satiety, Denies heartburn, Denies hematemesis, Denies hematochezia, Denies indigestion, Denies jaundice, Denies lactose intolerance, Denies loss of appetite, Denies melena, Denies nausea Genitourinary: Reports dysuria, Reports flank pain, Reports hematuria, Reports nocturia, Reports polyuria, Reports urinary frequency, Reports urinary retention , Denies as per HPI, Denies decreased libido, Denies difficulties fathering child, Denies discharge, Denies erectile dysfunction, Denies genital pain, Denies genital sores, Denies impotence, Denies incontinence, Denies kidney stones, Denies testicular lump, Denies testicular pain, Denies urinary hesitancy Musculoskeletal: Reports low back pain, Reports myalgias, Reports neck pain, Reports neck stiffness, Denies as per HPI, Denies arm numbness/tingling, Denies atrophy, Denies fractures, Denies frequent falls, Denies gait dysfunction, Denies hot joints, Denies leg numbness/tingling, Denies limitation of motion, Denies loss of height, Denies morning stiffness, Denies muscle cramps, Denies muscle weakness, Denies prior amputations, Denies redness of joints, Denies shooting arm pain, Denies shooting leg pain Integumentary: Denies as per HPI, Denies acne, Denies boils, Denies brittle nails, Denies change in hair/nails, Denies color changes, Denies darkening of skin, Denies depigmentation, Denies dryness, Denies foot/leg ulcers, Denies growths, Denies hirsutism, Denies lesions, Denies onychomycosis, Denies pruritus , Denies rash, Denies sores, Denies striae, Denies unusual bruising, Denies wounds Neurological: Reports numbness, Denies as per HPI, Denies aphasia, Denies ataxia , Denies balance difficulties, Denies burning pain, Denies change in mentation, Denies change in smell/taste, Denies change in speech, Denies confusion, Denies convulsions, Denies double vision, Denies gait dysfunction, Denies head injury, Denies headaches, Denies hearing difficulties, Denies lack of coordination, Denies loss of vision, Denies memory loss, Denies migraines, Denies motor disturbance, Denies paralysis, Denies paresthesias, Denies seizures, Denies sensory deficit, Denies spasticity, Denies syncope, Denies tic, Denies tingling , Denies transient paralysis, Denies tremors, Denies vertigo, Denies weakness, Denies visual changes Psychiatric: Reports anhedonia, Reports anxiety attacks, Reports depression, Denies as per HPI, Denies anxiety, Denies change in appetite, Denies change in libido, Denies change in sleep habits, Denies confusion, Denies difficulty concentrating, Denies disorientation, Denies hallucinations, Denies hopelessness , Denies hypersomnia, Denies insomnia, Denies irritability, Denies memory loss, Denies mood swings, Denies paranoia, Denies sadness/tearfulness, Denies sleep disturbances, Denies suicidal ideation Endocrine: Reports cold intolerance, Reports excessive thirst, Reports fatigue, Reports heat intolerance, Reports palpitations, Reports polyphagia, Denies as per HPI, Denies deepening of the voice, Denies excessive sweating, Denies flushing, Denies high blood sugars, Denies increase in ring/shoe/hat size, Denies low blood sugars, Denies nocturia, Denies polydipsia, Denies polyuria, Denies proptosis, Denies recent glucocorticoid use, Denies thyroid mass, Denies weight change Hematologic/Lymphatic: Reports easy bruising, Denies as per HPI, Denies easy bleeding, Denies lymphadenopathy, Denies lymphedema, Denies thrombophilia Allergic/Immunologic: Denies as per HPI, Denies allergic rhinitis, Denies anaphylaxis, Denies angioedema, Denies gluten intolerance, Denies persistent infections, Denies seasonal allergies, Denies urticaria, Denies wheezing Past Medical History Past Medical History: Cancer Additional Past Medical History / Comment(s): colon cancer, right sided kidney failure History of Any Multi-Drug Resistant Organisms: C-DIFF Date of last positivie culture/infection: 2015 MDRO Source:: Bowel Past Surgical History: Appendectomy, Bowel Resection Past Psychological History: No Psychological Hx Reported Smoking Status: Never smoker Past Alcohol Use History: None Reported Past Drug Use History: None Reported Medications and Allergies Home Medications Medication Instructions Recorded Confirmed Type Apixaban [Eliquis] 2.5 mg PO BID 01/11/18 01/11/18 History Capecitabine [Xeloda] 2,000 mg PO BID 01/11/18 01/11/18 History Diphenox-Atrop 2.5-0.025 mg 1 tab PO QID PRN 01/11/18 01/11/18 History [Lomotil] Gabapentin [Neurontin] 100 mg PO DAILY@1200 01/11/18 01/11/18 History Gabapentin [Neurontin] 200 mg PO BID 01/11/18 01/11/18 History oxyCODONE-APAP 10-325MG [Percocet 1 - 2 tab PO Q6HR PRN 01/11/18 01/11/18 History 10-325 mg] Allergies Allergy/AdvReac Type Severity Reaction Status Date / Time No Known Allergies Allergy Verified 01/11/18 16:29 Physical Exam Vitals: Vital Signs Temp Pulse Pulse Resp BP BP Pulse Ox 01/12/18 07:36 98.3 F 73 16 143/87 99 01/12/18 01:53 99.7 F H 68 16 122/74 98 01/12/18 00:00 84 16 01/11/18 23:00 99.7 F H 68 16 122/74 98 01/11/18 20:37 99.7 F H 66 16 149/92 99 01/11/18 16:46 98.8 F 64 18 158/88 98 01/11/18 16:07 98.9 F 60 18 148/78 98 01/11/18 15:56 67 18 159/75 98 01/11/18 14:46 100.1 F H Intake and Output 01/11/18 01/12/18 01/12/18 22:59 06:59 14:59 Intake Total 60 530 236 Balance 60 530 236 Intake: Intake, IV Titration 350 Amount Sodium Chloride 0.9% 1, 350 000 ml @ 100 mls/hr IV . Q10H [facility] Rx#:[id number] Oral 60 180 236 Other: Voiding Method Toilet Toilet # Voids 1 1 Weight 90.718 kg 90.718 kg - Constitutional General appearance: no average body habitus, cooperative, no disheveled, no mild distress, no morbidly obese, no acute distress, no obese, no severe distress, no thin - EENT Eyes: no abnormal pupil, no anicteric sclerae, no disc margins sharp, no edentulous, no EOMI, no PERRLA, no fundus normal, no photophobia, no dentition normal, no poor dentition, no ptosis, no scleral icterus, normal appearance ENT: no hard of hearing, no hearing grossly normal, no NA/AT, normal oropharynx , no other, pharyngeal erythema, no thrush, no tonsillar exudates, no tonsillar swelling Ears: bilateral: normal, bulging - Neck Neck: no lymphadenopathy, normal ROM, no other, no rigidity, no stridor, no thyromegaly Carotids: bilateral: upstroke normal, upstroke delayed Thyroid: bilateral: normal size - Respiratory Respiratory: bilateral: CTA, diminished - Cardiovascular Rhythm: regular Heart sounds: normal: S1, S2 - Gastrointestinal General gastrointestinal: decreased bowel sounds, distended, tenderness Localized gastrointestinal: tender: RLQ - Integumentary Integumentary: no calor, no cellulitis, no cyanotic, no decreased turgor, no flushed, no jaundiced, normal, no normal turgor, pale, no rash, no ulcer - Neurologic Neurologic: CNII-XII intact - Musculoskeletal Musculoskeletal: gait normal, generalized weakness, strength equal bilaterally, no right sided weakness, no left sided weakness - Psychiatric Psychiatric: A&O x's 3, appropriate affect Results CBC & Chem 7: 01/12/18 06:28 01/12/18 06:28 Labs: Abnormal Lab Results - Last 24 Hours (Table) 01/11/18 01/12/18 01/12/18 Range/Units 14:43 06:28 06:28 RBC 3.28 L (4.30-5.90) m/uL Hgb 11.2 L (13.0-17.5) gm/dL Hct 33.1 L (39.0-53.0) % MCV 101.0 H (80.0-100.0) fL RDW 18.8 H (11.5-15.5) % Plt Count 100 L (150-450) k/uL Lymphocytes # 0.7 L (1.0-4.8) k/uL Glucose 117 H (74-99) mg/dL Albumin 3.4 L (3.5-5.0) g/dL Urine Protein 1+ H (Negative) Urine Blood Small H (Negative) Ur Leukocyte Esterase Small H (Negative) Urine WBC 36 H (0-5) /hpf Amorphous Sediment Rare H (None) /hpf Hyaline Casts 3 H (0-2) /lpf Urine Mucus Occasional H (None) /hpf Microbiology - Last 24 Hours (Table) 01/11/18 10:57 Blood Culture - Preliminary Blood No Growth after 24 hours 01/11/18 14:43 Urine Culture - Preliminary Urine,Clean Catch Thrombosis Risk Factor Assmnt - DVT/VTE Prophylaxis DVT/VTE Prophylaxis: Pharmacologic Prophylaxis ordered, Mechanical Prophylaxis ordered - Choose All That Apply Any of the Below Risk Factors Present?: Yes Each Factor Represents 1 point: Age 41-60 years, Obesity (BMI >25) Other Risk Factors: No Other congenital or acquired thrombophilia - If yes, enter type in comment: No Thrombosis Risk Factor Assessment Total Risk Factor Score: 2 Thrombosis Risk Factor Assessment Level: Low Risk Assessment and Plan Plan: 1 sepsis with UTI: Most likely pyelonephritis or upper urinary tract infection specially with a hydronephrosis on the right side, patient will be continue on Levaquin urine culture is pending at this point. Patient be seen urology and if need to attend another procedure with stent to reduce all resolved the hydronephrosis otherwise patient might require another intervention to resolve the problem. 2 severe hydronephrosis of the right side most likely from metastasis scar tissue or lymph node compression, patient has been on medical management attempt off stenting in the past was not successful in more than 2 occasion and had perforation one time patient was against idea of doing any intervention at this point a decision will be left up to urology to make. 3 advanced stage 4 colon cancer with metastasis patient seen oncology on regular basis. 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 5 hypercoagulopathy with DVT of the right side has been on Eliquis 2.5 mg twice a day. 6 severe GERD/GI prophylaxis: Continue patient on pantoprazole 40 mg daily. 7 DVT prophylaxis: Remain on anticoagulation currently. 8 hyperglycemia: On diet control only. 9 mild iron deficiency anemia: Remain on multivitamins and iron supplement. CODE STATUS: Full code. Admit patient to inpatient for 2-3 nights.
--- NOTE | 2018-01-12 18:49 | P.CONS ---
History of Present Illness - Reason for Consult Consult date: 01/12/18 colon cancer Requesting physician: Frederick Larsen - Chief Complaint right lower quadrant pain, urinary tract infection - History of Present Illness Malignancy history: Mr Canales is a very pleasant male patient of Dr. Tariq, who had his 1st screening colonoscopy in 08/2013, an ulcerated mass was found in the sigmoid along with multiple polyps, sigmoid biopsy was positive , CT AP 09/21/13 negative for mets, patient had subtotal colectomy with ileo- rectal anastomosis on 10/08/13, pathology revealed an invasive, poorly differentiated adenocarcinoma, arising in an adenomatous polyp, T2, N0, (0 /23 nodes), 15 other adenomatous polyps were noted, genetic testing for FAP and Betancourt syndrome was ordered but, could not be done for insurance reason. Patient continued on follow-up, colonoscopy on 05/12/15 revealed tubular adenoma in the rectum which was removed. In December 2015 patient presented with pain and swelling of RLE, initial venous doppler was negative for DVT, treated for cellulitis without improvement, repeat doppler at Dr. Munoz office was positive for DVT, CT AP 02/22/16 revealed 9.4 x 5.5cm mass in right pelvis causing significant hydronephrosis, cystoscopy and ureteral stent placement was attempted but, stent could not be placed, eliquis treatment was started. CEA was 256.4, 02/27/16 FNA of the pelvic mass was positive for adenocarcinoma consistent with colon primary. Staging PET revealed very large right pelvic mass invading the sacrum, multiple lung lesions and hilar nodes. Right nephrostomy tube placed at [facility] 03/11/16, evaluated by oncology at [facility], recommendation was for systemic therapy first. His tumor was Microsatellite stable, BRAF, KRAS and NRAS negative, genetic testing for Betancourt syndrome was negative so, on 04/08/16 he started [id number]. Over the next 4 months CEA declined, 4.6 on Jul, treatment f/u PET in May revealed significant improvement in the pelvic mass and healing effects in pelvic bone, completed 10 cycles of mFOLFOX i109/2015. Repeat PET scan 09/08/16 revealed disease progression in the pelvis, started avastin/FOLFIRI on 09/25/16, 12/01/16 treatment f/u PET revealed stable disease, completed 11 cycles of FOLFIRI/Avastin February 2017, pt wanted break form treatment, f/u PET 03/22/17 revealed improvement in his disease, started maintenance xeloda/avastin on 04/15/17. Pt cont on treatment but May 27 he ended up having a bleed within the kidney and retroperitoneal hemorrhage for which she had a prolonged admission to [facility]. He was discharged in June, follow-up PET in July had questionable disease progression so, he continues with Xeloda and Avastin at this time, last treatment was on 12/30/2017, he is currently on his week off of treatment, treatment follow-up PET scan scheduled for January. Patient states reason for coming to the hospital was progressive right-sided abdominal pain, over the last week, associated with fever, nausea, vomiting. Patient denies headaches, anorexia, chest pain, shortness of breath, difficulty breathing, dysuria or hematuria, no black or bloody stool, diarrhea or constipation, fully ambulatory, pain is currently controlled, he denies a history of kidney stones, no groin pain, the right lower quadrant pain has been there before. Review of Systems 14 point review of systems is as stated in HPI Past Medical History Past Medical History: Cancer Additional Past Medical History / Comment(s): colon cancer, right sided kidney failure History of Any Multi-Drug Resistant Organisms: C-DIFF Year Discovered:: 2016 MDRO Source:: Bowel Past Surgical History: Appendectomy, Bowel Resection Past Psychological History: No Psychological Hx Reported Smoking Status: Never smoker Past Alcohol Use History: None Reported Past Drug Use History: None Reported Medications and Allergies Home Medications Medication Instructions Recorded Confirmed Type Apixaban [Eliquis] 2.5 mg PO BID 01/11/18 01/11/18 History Capecitabine [Xeloda] 2,000 mg PO BID 01/11/18 01/11/18 History Diphenox-Atrop 2.5-0.025 mg 1 tab PO QID PRN 01/11/18 01/11/18 History [Lomotil] Gabapentin [Neurontin] 100 mg PO DAILY@1200 01/11/18 01/11/18 History Gabapentin [Neurontin] 200 mg PO BID 01/11/18 01/11/18 History oxyCODONE-APAP 10-325MG [Percocet 1 - 2 tab PO Q6HR PRN 01/11/18 01/11/18 History 10-325 mg] Allergies Allergy/AdvReac Type Severity Reaction Status Date / Time No Known Allergies Allergy Verified 01/11/18 16:29 Physical Exam Vitals: Vital Signs Temp Pulse Resp BP Pulse Ox 01/12/18 14:27 99.3 F 77 16 118/75 99 01/12/18 07:36 98.3 F 73 16 143/87 99 01/12/18 01:53 99.7 F H 68 16 122/74 98 01/12/18 00:00 84 16 01/11/18 23:00 99.7 F H 68 16 122/74 98 01/11/18 20:37 99.7 F H 66 16 149/92 99 Intake and Output 01/12/18 01/12/18 01/12/18 06:59 14:59 22:59 Intake Total 530 736 Balance 530 736 Intake: Intake, IV Titration 350 Amount Sodium Chloride 0.9% 1, 350 000 ml @ 100 mls/hr IV . Q10H [facility] Rx#:[id number] Oral 180 736 Other: Voiding Method Toilet Toilet # Voids 1 3 Weight 90.718 kg - Constitutional General appearance: average body habitus, cooperative, no acute distress - EENT Eyes: anicteric sclerae, EOMI, PERRLA ENT: normal oropharynx - Neck Neck: no lymphadenopathy - Respiratory Respiratory: bilateral: CTA - Cardiovascular Heart sounds: normal: S1, S2 leg Peripheral Edema: bilateral: None - Gastrointestinal General gastrointestinal: normal bowel sounds, soft Localized gastrointestinal: tender: RUQ, suprabubic - Integumentary Integumentary: normal - Neurologic Neurologic: CNII-XII intact - Musculoskeletal Musculoskeletal: strength equal bilaterally - Psychiatric Psychiatric: A&O x's 3, appropriate affect, intact judgment & insight Results CBC & Chem 7: 01/12/18 06:28 01/12/18 06:28 Labs: Abnormal Lab Results - Last 24 Hours (Table) 01/12/18 01/12/18 Range/Units 06:28 06:28 RBC 3.28 L (4.30-5.90) m/uL Hgb 11.2 L (13.0-17.5) gm/dL Hct 33.1 L (39.0-53.0) % MCV 101.0 H (80.0-100.0) fL RDW 18.8 H (11.5-15.5) % Plt Count 100 L (150-450) k/uL Lymphocytes # 0.7 L (1.0-4.8) k/uL Glucose 117 H (74-99) mg/dL Albumin 3.4 L (3.5-5.0) g/dL Microbiology - Last 24 Hours (Table) 01/11/18 14:43 Urine Culture - Final Urine,Clean Catch 01/11/18 10:57 Blood Culture - Preliminary Blood No Growth after [address] scan - abdomen: report reviewed CT scan - pelvis: report reviewed Assessment and Plan (1) Colon adenocarcinoma Narrative/Plan: Noncontrast CT report reviewed, progressive hydronephrosis of the right kidney, Urology as consult for evaluation. Discussion about the pelvic mass is not suggestive of an increase in size, no retroperitoneal lymphadenopathy. PET scan is ordered for early January with follow-up. Recommend treatment of UTI and symptom management. Await evaluation and recommendations from Urology as patient has had hydronephrosis kidney before, this is to a degree chronic but CT stating progression. Current Visit: Yes Status: Chronic Priority: Medium Code(s): C18.9 - MALIGNANT NEOPLASM OF COLON, UNSPECIFIED SNOMED Code(s): 991728857
[2018-01-12] MEDS: APIXABAN 2.5 MG TABLET PO SCH (20:35)
[2018-01-13] MEDS: KETOROLAC 30 MG/ML 1 ML VIAL IVP PRN ×3 (05:19→18:44)
[2018-01-13] MEDS: SODIUM CHLORIDE 0.9% 1,000 ML IV SCH ×2 (05:19→09:25)
--- NOTE | 2018-01-13 06:39 | P.GSCN ---
History of Present Illness Consult date: 01/12/18 Reason for Consult: Right Hydronephrosis Requesting physician: Frederick Larsen History of present illness: He is a 57-year-old male found in 2015 to have marked right hydronephrosis due to a right pelvic mass, determined to be advanced colon cancer. Attempted stent placement was unsuccessful, so he underwent placement of a right percutaneous nephrostomy tube. Unfortunately, a renal scan showed no function in the right kidney, and thus the right nephrostomy tube was removed. He was hospitalized in May 2017 with right-sided abdominal and flank pain. The computed tomography scan showed increased hydronephrosis, so he underwent attempted placement of a right percutaneous nephrostomy tube. This unfortunately resulted in bleeding, and he was transferred to [facility] where he received a number of transfusions. He has been urologically stable since that time, but it is now admitted with a 2 day history of fever, chills, nausea, vomiting, and right-sided abdominal pain. Review of Systems - Constitutional Reports chills, Reports fever - Gastrointestinal Reports nausea, Reports vomiting - Genitourinary Reports flank pain, Denies hematuria Past Medical History Past Medical History: Cancer Additional Past Medical History / Comment(s): colon cancer, right sided kidney failure History of Any Multi-Drug Resistant Organisms: C-DIFF Year Discovered:: 2015 MDRO Source:: Bowel Past Surgical History: Appendectomy, Bowel Resection Past Psychological History: No Psychological Hx Reported Smoking Status: Never smoker Past Alcohol Use History: None Reported Past Drug Use History: None Reported Medications and Allergies Home Medications Medication Instructions Recorded Confirmed Type Apixaban [Eliquis] 2.5 mg PO BID 01/11/18 01/11/18 History Capecitabine [Xeloda] 2,000 mg PO BID 01/11/18 01/11/18 History Diphenox-Atrop 2.5-0.025 mg 1 tab PO QID PRN 01/11/18 01/11/18 History [Lomotil] Gabapentin [Neurontin] 100 mg PO DAILY@1200 01/11/18 01/11/18 History Gabapentin [Neurontin] 200 mg PO BID 01/11/18 01/11/18 History oxyCODONE-APAP 10-325MG [Percocet 1 - 2 tab PO Q6HR PRN 01/11/18 01/11/18 History 10-325 mg] Allergies Allergy/AdvReac Type Severity Reaction Status Date / Time No Known Allergies Allergy Verified 01/11/18 16:29 Surgical - Exam Vital Signs Temp Pulse Resp BP Pulse Ox 100.3 F H 83 18 167/88 100 01/11/18 10:14 01/11/18 10:14 01/11/18 10:14 01/11/18 10:14 01/11/18 10:14 - General well developed, well nourished, no distress - Respiratory normal respiratory effort - Abdomen Abdomen: soft, tender (mild right CVA tenderness), no guarding, no rigid, no rebound, no distended - Genitourinary normal penis with no external lesions, testicles non-tender - Psychiatric oriented to time, oriented to person, oriented to place, speech is normal, memory intact Results - Labs 01/12/18 06:28 01/12/18 06:28 Abnormal Lab Results - Last 24 Hours (Table) 01/12/18 01/12/18 Range/Units 06:28 06:28 RBC 3.28 L (4.30-5.90) m/uL Hgb 11.2 L (13.0-17.5) gm/dL Hct 33.1 L (39.0-53.0) % MCV 101.0 H (80.0-100.0) fL RDW 18.8 H (11.5-15.5) % Plt Count 100 L (150-450) k/uL Lymphocytes # 0.7 L (1.0-4.8) k/uL Glucose 117 H (74-99) mg/dL Albumin 3.4 L (3.5-5.0) g/dL Microbiology - Last 24 Hours (Table) 01/11/18 10:57 Blood Culture - Preliminary Blood No Growth after 24 hours 01/11/18 14:43 Urine Culture - Preliminary Urine,Clean Catch Diabetes panel 01/12/18 Range/Units 06:28 Sodium 140 (137-145) mmol/L Potassium 4.0 (3.5-5.1) mmol/L Chloride 105 (98-107) mmol/L Carbon Dioxide 24 (22-30) mmol/L BUN 19 (9-20) mg/dL Creatinine 1.00 (0.66-1.25) mg/dL Glucose 117 H (74-99) mg/dL Calcium 8.7 (8.4-10.2) mg/dL AST 20 (17-59) U/L ALT 27 (21-72) U/L Alkaline Phosphatase 50 (38-126) U/L Total Protein 6.3 (6.3-8.2) g/dL Albumin 3.4 L (3.5-5.0) g/dL Calcium panel 01/12/18 Range/Units 06:28 Calcium 8.7 (8.4-10.2) mg/dL Albumin 3.4 L (3.5-5.0) g/dL Pituitary panel 01/12/18 Range/Units 06:28 Sodium 140 (137-145) mmol/L Potassium 4.0 (3.5-5.1) mmol/L Chloride 105 (98-107) mmol/L Carbon Dioxide 24 (22-30) mmol/L BUN 19 (9-20) mg/dL Creatinine 1.00 (0.66-1.25) mg/dL Glucose 117 H (74-99) mg/dL Calcium 8.7 (8.4-10.2) mg/dL Adrenal panel 01/12/18 Range/Units 06:28 Sodium 140 (137-145) mmol/L Potassium 4.0 (3.5-5.1) mmol/L Chloride 105 (98-107) mmol/L Carbon Dioxide 24 (22-30) mmol/L BUN 19 (9-20) mg/dL Creatinine 1.00 (0.66-1.25) mg/dL Glucose 117 H (74-99) mg/dL Calcium 8.7 (8.4-10.2) mg/dL Total Bilirubin 1.3 (0.2-1.3) mg/dL AST 20 (17-59) U/L ALT 27 (21-72) U/L Alkaline Phosphatase 50 (38-126) U/L Total Protein 6.3 (6.3-8.2) g/dL Albumin 3.4 L (3.5-5.0) g/dL - Imaging CT scan - chest: report reviewed, image reviewed Assessment and Plan (1) Hydronephrosis Current Visit: Yes Status: Acute Code(s): N13.30 - UNSPECIFIED HYDRONEPHROSIS SNOMED Code(s): 87722475 Plan: The patient is a 57-year-old white male with chronic right hydronephrosis. The right kidney is non-functional. He is now admitted with fever, chills, and right flank pain, suggestive of pyelonephritis. However, there is no leukocytosis, and urinalysis is not particularly impressive. He is being treated with IV hydration and Levaquin, and is feeling somewhat better. A urine culture is pending. I would suggest that current treatment be continued, pending the final urine culture result. If he fails to improve, consideration could be given to attempted placement of a right ureteral stent. However, this will be avoided if at all possible. Time with Patient: Greater than 30
[2018-01-13 08:29] LABS: Calcium 8.2 mg/dL (8.4-10.2); Potassium 3.9 mmol/L (3.5-5.1); Total Bilirubin 1.2 mg/dL (0.2-1.3); Total Protein 5.7 g/dL (6.3-8.2)
[2018-01-13 08:33] LABS: Anisocytosis Slight; Basophils % (A) 0 %; Eosinophils % (A) 1 %; HCT 28.6 % (39.0-53.0); Lymphocytes # (A) 0.6 k/uL (1.0-4.8); Lymphocytes % (A) 9 %; MCHC 33.6 g/dL (31.0-37.0); MCV 101.3 fL (80.0-100.0); Macrocytosis Moderate; Monocytes # (A) 0.4 k/uL (0-1.0); Monocytes % (A) 6 %; Neutrophils # (A) 5.2 k/uL (1.3-7.7); Neutrophils % (A) 83 %; RBC 2.82 m/uL (4.30-5.90); RDW 18.4 % (11.5-15.5); WBC 6.3 k/uL (3.8-10.6)
[2018-01-13 08:36] LABS: HGB 9.6 gm/dL (13.0-17.5)
[2018-01-13] MEDS: GABAPENTIN 100 MG CAP PO SCH ×4 (09:26→22:10)
[2018-01-13] MEDS: PANTOPRAZOLE 40 MG TABLET PO SCH (09:26)
[2018-01-13] MEDS: APIXABAN 2.5 MG TABLET PO SCH ×2 (09:26→22:10)
[2018-01-13] MEDS: TAMSULOSIN 0.4 MG CAP.ER.24H PO SCH (09:29)
[2018-01-13 09:49] LABS: Platelet Count 87 k/uL (150-450)
[2018-01-13] MEDS: LEVOFLOXACIN 500 MG TAB PO SCH (12:20)
--- NOTE | 2018-01-13 15:17 | P.PN ---
Subjective Progress Note Date: 01/13/18 57-year-old male one of Dr. Russ patient who seen Dr. Tariq oncology who was diagnosed with colon cancer back in 2012 after partial resection with Dr. Sanz patient ended up doing chemotherapy and surprisingly found to have an advanced metastatic disease was diagnosed as a stage IV: Cancer. Patient had hydronephrosis of the right side from metastasis and enlarged lymph node would attempt to do stent by urology in town and was sent to have a fourth and had no successful result from it continue to have hydronephrosis of the right side compared to the left from metastasis disease. Patient has been doing well until the last 48 hours when he developed to have fever chills nausea and vomiting many times within 2 days with his symptoms become worse ended up coming to the emergency department at [facility] where was seen and evaluated found to have UTI with with CT showing hydronephrosis of the right side as well and this is most likely pyelonephritis with upper urinary tract infection. Patient was giving 1 dose of IV Levaquin admitted to the hospital consult urology and oncology. 01/13: Patient has been seen by Dr. Corcoran with no plan for any surgical intervention at this point. Recommendations to continue IV hydration and antibiotics. We will add in Flomax. Urine culture showing no growth after 18 hours and has been finalized. Patient is seen and followed by oncology. Anticipate discharge home tomorrow. Objective - Vital Signs Vital signs: Vital Signs Temp 98.9 F 01/13/18 07:18 Pulse 71 01/13/18 07:18 Resp 18 01/13/18 07:18 BP 100/75 01/13/18 07:18 Pulse Ox 99 01/13/18 07:18 Intake & Output 01/12/18 01/13/18 01/13/18 18:59 06:59 18:59 Intake Total 736 1700 Balance 736 1700 Intake: Intake, IV Titration 1200 Amount Sodium Chloride 0.9% 1, 1200 000 ml @ 100 mls/hr IV . Q10H MOON Rx#:[id number] Oral 736 500 Other: Voiding Method Toilet Toilet # Voids 3 - Exam General appearance: no average body habitus, cooperative, no disheveled, no mild distress, no morbidly obese, no acute distress, no obese, no severe distress, no thin - EENT Eyes: no abnormal pupil, no anicteric sclerae, no disc margins sharp, no edentulous, no EOMI, no PERRLA, no fundus normal, no photophobia, no dentition normal, no poor dentition, no ptosis, no scleral icterus, normal appearance ENT: no hard of hearing, no hearing grossly normal, no NA/AT, normal oropharynx , no other, pharyngeal erythema, no thrush, no tonsillar exudates, no tonsillar swelling Ears: bilateral: normal, bulging - Neck Neck: no lymphadenopathy, normal ROM, no other, no rigidity, no stridor, no thyromegaly Carotids: bilateral: upstroke normal, upstroke delayed Thyroid: bilateral: normal size - Respiratory Respiratory: bilateral: CTA, diminished - Cardiovascular Rhythm: regular Heart sounds: normal: S1, S2 - Gastrointestinal General gastrointestinal: decreased bowel sounds, distended, tenderness Localized gastrointestinal: tender: RLQ - Integumentary Integumentary: no calor, no cellulitis, no cyanotic, no decreased turgor, no flushed, no jaundiced, normal, no normal turgor, pale, no rash, no ulcer - Neurologic Neurologic: CNII-XII intact - Musculoskeletal Musculoskeletal: gait normal, generalized weakness, strength equal bilaterally, no right sided weakness, no left sided weakness - Psychiatric Psychiatric: A&O x's 3, appropriate affect - Labs CBC & Chem 7: 01/13/18 07:31 18 07:31 Labs: Abnormal Lab Results - Last 24 Hours (Table) 01/13/18 01/13/18 Range/Units 07:31 07:31 RBC 2.82 L (4.30-5.90) m/uL Hgb 9.6 L D (13.0-17.5) gm/dL Hct 28.6 L (39.0-53.0) % MCV 101.3 H (80.0-100.0) fL RDW 18.4 H (11.5-15.5) % Plt Count 87 L (150-450) k/uL Lymphocytes # 0.6 L (1.0-4.8) k/uL Chloride 108 H (98-107) mmol/L BUN 21 H (9-20) mg/dL Creatinine 1.32 H (0.66-1.25) mg/dL Glucose 101 H (74-99) mg/dL Calcium 8.2 L (8.4-10.2) mg/dL AST 15 L (17-59) U/L Total Protein 5.7 L (6.3-8.2) g/dL Albumin 3.0 L (3.5-5.0) g/dL Microbiology - Last 24 Hours (Table) 01/11/18 14:43 Urine Culture - Final Urine,Clean Catch 01/11/18 10:57 Blood Culture - Preliminary Blood No Growth after 24 hours Assessment and Plan Plan: 1 sepsis with UTI: Most likely pyelonephritis or upper urinary tract infection specially with a hydronephrosis on the right side, patient will be continue on Levaquin urine culture is pending at this point. Patient be seen urology and if need to attend another procedure with stent to reduce all resolved the hydronephrosis otherwise patient might require another intervention to resolve the problem. 2 severe hydronephrosis of the right side most likely from metastasis scar tissue or lymph node compression, patient has been on medical management attempt off stenting in the past was not successful in more than 2 occasion and had perforation one time patient was against idea of doing any intervention at this point a decision will be left up to urology to make. 3 advanced stage 4 colon cancer with metastasis patient seen oncology on regular basis. 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 5 hypercoagulopathy with DVT of the right side has been on Eliquis 2.5 mg twice a day. 6 severe GERD/GI prophylaxis: Continue patient on pantoprazole 40 mg daily. 7 DVT prophylaxis: Remain on anticoagulation currently. 8 hyperglycemia: On diet control only. 9 mild iron deficiency anemia: Remain on multivitamins and iron supplement. CODE STATUS: Full code. Discharge plan: Home tomorrow Impression and plan of care have been directed as dictated by the signing physician. Brea Garcia nurse practitioner acting as scribe for signing physician.
[2018-01-13 15:24] VITALS: RESP 16
--- NOTE | 2018-01-13 17:47 | P.PN ---
Subjective Progress Note Date: 01/13/18 Principal diagnosis: RUQ pain, UTI Patient seen today in follow-up, right upper quadrant pain a little less intense , temp of 100.4 overnight. Patient tolerating oral intake, patient is able to urinate, he has had a bowel movement since admission. Objective - Vital Signs Vital signs: Vital Signs Temp 98.2 F 01/13/18 15:18 Pulse 77 01/13/18 15:18 Resp 16 01/13/18 15:18 BP 123/78 01/13/18 15:18 Pulse Ox 99 01/13/18 15:18 Intake & Output 01/12/18 01/13/18 01/13/18 18:59 06:59 18:59 Intake Total 736 1700 800 Balance 736 1700 800 Intake: IV 800 Sodium Chloride 0.9% 1, 800 000 ml @ 100 mls/hr IV . Q10H MOON Rx#:[id number] Intake, IV Titration 1200 Amount Sodium Chloride 0.9% 1, 1200 000 ml @ 100 mls/hr IV . Q10H MOON Rx#:[id number] Oral 736 500 Other: Voiding Method Toilet Toilet # Voids 3 - Constitutional General appearance: Present: average body habitus, cooperative, no acute distress - Respiratory Respiratory: bilateral: CTA - Cardiovascular Heart sounds: normal: S1, S2 - Gastrointestinal General gastrointestinal: Present: soft, tenderness Localized gastrointestinal: tender: RUQ (flank) - Integumentary Integumentary: Present: normal - Neurologic Neurologic: Present: CNII-XII intact - Musculoskeletal Musculoskeletal: Present: strength equal bilaterally - Psychiatric Psychiatric: Present: A&O x's 3, appropriate affect, intact judgment & insight - Labs CBC & Chem 7: 01/13/18 07:31 01/13/18 07:31 Labs: Abnormal Lab Results - Last 24 Hours (Table) 01/13/18 01/13/18 Range/Units 07:31 07:31 RBC 2.82 L (4.30-5.90) m/uL Hgb 9.6 L D (13.0-17.5) gm/dL Hct 28.6 L (39.0-53.0) % MCV 101.3 H (80.0-100.0) fL RDW 18.4 H (11.5-15.5) % Plt Count 87 L (150-450) k/uL Lymphocytes # 0.6 L (1.0-4.8) k/uL Chloride 108 H (98-107) mmol/L BUN 21 H (9-20) mg/dL Creatinine 1.32 H (0.66-1.25) mg/dL Glucose 101 H (74-99) mg/dL Calcium 8.2 L (8.4-10.2) mg/dL AST 15 L (17-59) U/L Total Protein 5.7 L (6.3-8.2) g/dL Albumin 3.0 L (3.5-5.0) g/dL Microbiology - Last 24 Hours (Table) 01/11/18 10:57 Blood Culture - Preliminary Blood No Growth after 48 hours 01/11/18 14:43 Urine Culture - Final Urine,Clean Catch Assessment and Plan (1) Colon adenocarcinoma Narrative/Plan: Patient's treatment next week will be delayed, PET scan do the following week with follow-up a few days later, plan is to keep these appointments. Patient verbalized understanding the plan. Current Visit: Yes Status: Chronic Priority: Medium Code(s): C18.9 - MALIGNANT NEOPLASM OF COLON, UNSPECIFIED SNOMED Code(s): 565696718 Plan: Defer to Urology and Internal Medicine for treatment of suspected pyelonephritis
--- NOTE | 2018-01-13 22:40 | P.PN ---
Progress Note - Text Progress Note Date: 01/13/18 Mr. Canales states that he continues to feel better. His right flank discomfort is improved, though not resolved. He has been afebrile since midnight. Urine and blood cultures are negative. I am hopeful that his condition with continued to improve, as I hope to avoid the need for surgical intervention.
[2018-01-14] MEDS: KETOROLAC 30 MG/ML 1 ML VIAL IVP PRN ×3 (00:44→10:50)
[2018-01-14] MEDS: SODIUM CHLORIDE 0.9% 1,000 ML IV SCH ×2 (04:11→12:00)
[2018-01-14 08:50] VITALS: BP 107/68; PULSE 66; TEMP 99.4
[2018-01-14] MEDS: TAMSULOSIN 0.4 MG CAP.ER.24H PO SCH (09:53)
[2018-01-14] MEDS: APIXABAN 2.5 MG TABLET PO SCH (09:53)
[2018-01-14] MEDS: PANTOPRAZOLE 40 MG TABLET PO SCH (09:53)
[2018-01-14] MEDS: GABAPENTIN 100 MG CAP PO SCH ×2 (09:54→11:41)
[2018-01-14] MEDS: LEVOFLOXACIN 500 MG TAB PO SCH (11:41)
--- NOTE | 2018-01-14 16:19 | P.PN ---
Progress Note - Text Progress Note Date: 01/14/18 Patient continues to feel better. Still reports mild right flank discomfort. Tm=99.9 degrees. Cultures negative. WBC count remains WNL. Patient to be discharged home on oral Levaquin. F/U prn.
--- NOTE | 2018-01-15 14:05 | P.DS ---
Providers Date of admission: 01/11/18 15:37 Expected date of discharge: 01/14/18 Attending physician: Srinivas Hay Consults: 01/11/18 15:37 Consult Physician Urgent Consulting Provider: Riki Iverson Consult Reason/Comments: Hydronephrosis and hydroureter with UTI colon cancer history Do you want consulting provider notified?: Yes 01/11/18 15:38 Consult Physician Urgent Consulting Provider: Janey Frost Consult Reason/Comments: Oncological care Do you want consulting provider notified?: Already Contacted 01/12/18 13:43 Consult Physician Routine Consulting Provider: Lita Tariq Consult Reason/Comments: Colon cancer Do you want consulting provider notified?: Yes Primary care physician: Mick Russ [facility] Course: 57-year-old male one of Dr. Russ patient who seen Dr. Tariq oncology who was diagnosed with colon cancer back in 2012 after partial resection with Dr. Sanz patient ended up doing chemotherapy and surprisingly found to have an advanced metastatic disease was diagnosed as a stage IV: Cancer. Patient had hydronephrosis of the right side from metastasis and enlarged lymph node would attempt to do stent by urology in [facility] and was sent to have a fourth and had no successful result from it continue to have hydronephrosis of the right side compared to the left from metastasis disease. Patient has been doing well until the last 48 hours when he developed to have fever chills nausea and vomiting many times within 2 days with his symptoms become worse ended up coming to the emergency department at [facility] where was seen and evaluated found to have UTI with with CT showing hydronephrosis of the right side as well and this is most likely pyelonephritis with upper urinary tract infection. Patient was giving 1 dose of IV Levaquin admitted to the hospital consult urology and oncology. 01/13: Patient has been seen by Dr. Corcoran with no plan for any surgical intervention at this point. Recommendations to continue IV hydration and antibiotics. We will add in Flomax. Urine culture showing no growth after 18 hours and has been finalized. Patient is seen and followed by oncology. Anticipate discharge home tomorrow. 01/14: Temperature maximum last 24 hours is 99.9. Urine culture was finalized with no growth. Patient will be discharged home on Levaquin with plan to follow -up with Dr. Mcgrath as an outpatient. 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 Brea Garcia nurse practitioner acting as scribe for signing physician. Patient Condition at Discharge: Good Plan - Discharge Summary Discharge Rx Participant: Yes New Discharge Prescriptions: New Levofloxacin [Levaquin] 500 mg PO DAILY@1200 #7 tab Tamsulosin [Flomax] 0.4 mg PO PC-BRKFST #30 cap.er.24h Continue oxyCODONE-APAP 10-325MG [Percocet 10-325 mg] 1 - 2 tab PO Q6HR PRN PRN Reason: Pain Gabapentin [Neurontin] 100 mg PO DAILY@1200 Gabapentin [Neurontin] 200 mg PO BID Diphenox-Atrop 2.5-0.025 mg [Lomotil] 1 tab PO QID PRN PRN Reason: Diarrhea Capecitabine [Xeloda] 2,000 mg PO BID Apixaban [Eliquis] 2.5 mg PO BID Discharge Medication List Apixaban [Eliquis] 2.5 mg PO BID 01/11/18 [History] Capecitabine [Xeloda] 2,000 mg PO BID 01/11/18 [History] Diphenox-Atrop 2.5-0.025 mg [Lomotil] 1 tab PO QID PRN 01/11/18 [History] Gabapentin [Neurontin] 100 mg PO DAILY@1200 01/11/18 [History] Gabapentin [Neurontin] 200 mg PO BID 01/11/18 [History] oxyCODONE-APAP 10-325MG [Percocet 10-325 mg] 1 - 2 tab PO Q6HR PRN 01/11/18 [ History] Levofloxacin [Levaquin] 500 mg PO DAILY@1200 #7 tab 01/14/18 [Rx] Tamsulosin [Flomax] 0.4 mg PO PC-BRKFST #30 cap.er.24h 01/14/18 [Rx] Follow up Appointment(s)/Referral(s): Dane Mcgrath MD [STAFF PHYSICIAN] - 1 Week (office will call patient with appointment time) Mick Russ MD [Primary Care Provider] - 01/15/18 2:45 pm Ambulatory/Diagnostic Orders: Complete Blood Count w/diff [LAB.AMB] Location: Determined By Patient Comprehensive Metabolic Panel [LAB.AMB] Location: Determined By Patient Patient Instructions/Handouts: Urinary Tract Infection in Men (DC), Colorectal Cancer (DC), Sepsis (GEN), Abdominal Pain (ED) Discharge Disposition: HOME SELF-CARE
[2018-01-19] MEDS ORDERED: CAPECITABINE 2000 MG PO SCH (09:00)
== END 2018-01-14 15:03 | disposition home or self-care (01) | DRG 872 ==
LOC: EC 10:14 → 3SUR 15:37
PROVIDERS: ADMIT Internal Medicine; ATTEND Internal Medicine
DX: A41.9 Sepsis, unspecified organism (principal); N13.6 Pyonephrosis; C79.9 Secondary malignant neoplasm of unspecified site; G62.0 Drug-induced polyneuropathy; N19 Unspecified kidney failure; D50.9 Iron deficiency anemia, unspecified; K21.9 Gastro-esophageal reflux disease without esophagitis; R73.9 Hyperglycemia, unspecified; D63.8 Anemia in other chronic diseases classified elsewhere; T45.1X5A Adverse effect of antineoplastic and immunosuppressive drugs, initial encounter; Z79.01 Long term (current) use of anticoagulants; Z79.899 Other long term (current) drug therapy; Z85.038 Personal history of other malignant neoplasm of large intestine; Z90.49 Acquired absence of other specified parts of digestive tract; Z86.19 Personal history of other infectious and parasitic diseases; Z86.010 Personal history of colon polyps
CPT/HCPCS: 36415; 74176; 80053; 81001; 82150; 82378; 83605; 83690; 85025; 87040; 87086; 96361; 96365; 96375; 96376; 99285

== ENCOUNTER 2018-01-16 12:35 | Emergency (ER) | payer BC ==
[2018-01-16] MEDS ORDERED: ONDANSETRON 4 MG/2 ML VIAL IVP STA ×2 (13:04→16:54)
--- NOTE | 2018-01-16 13:07 | ED ---
General Adult HPI - General Chief complaint: Nausea/Vomiting/Diarrhea Stated complaint: Vomiting. Time Seen by Provider: 01/16/18 12:47 Source: patient, family, RN notes reviewed Mode of arrival: wheelchair Limitations: no limitations - History of Present Illness Initial comments: Patient is a pleasant 57-year-old male presenting to the emergency department with concerns for vomiting and fever. Patient was discharged from the hospital on Friday. Symptoms started up again yesterday afternoon. Patient has had vomiting. Patient has had fever. Patient states there is some abdominal discomfort however it is mild and better than it was previously. Patient is currently undergoing chemotherapy for stage IV colon cancer. - Related Data Home Medications Medication Instructions Recorded Confirmed Apixaban [Eliquis] 2.5 mg PO BID 01/11/18 01/16/18 Capecitabine [Xeloda] 2,000 mg PO BID 01/11/18 01/16/18 Diphenox-Atrop 2.5-0.025 mg 1 tab PO QID PRN 01/11/18 01/16/18 [Lomotil] Gabapentin [Neurontin] 100 mg PO DAILY@1200 01/11/18 01/16/18 Gabapentin [Neurontin] 200 mg PO BID 01/11/18 01/16/18 oxyCODONE-APAP 10-325MG [Percocet 1 - 2 tab PO Q6HR PRN 01/11/18 01/16/18 10-325 mg] Previous Rx's Medication Instructions Recorded Levofloxacin [Levaquin] 500 mg PO DAILY@1200 #7 tab 01/14/18 Tamsulosin [Flomax] 0.4 mg PO PC-BRKFST #30 cap.er.24h 01/14/18 Allergies Allergy/AdvReac Type Severity Reaction Status Date / Time No Known Allergies Allergy Verified 01/16/18 13:04 Review of Systems ROS Statement: Those systems with pertinent positive or pertinent negative responses have been documented in the HPI. ROS Other: All systems not noted in ROS Statement are negative. Constitutional: Reports: fever Eyes: Denies: eye pain ENT: Denies: ear pain Respiratory: Denies: cough Cardiovascular: Denies: chest pain Endocrine: Reports: fatigue Gastrointestinal: Reports: abdominal pain, nausea, vomiting Genitourinary: Denies: dysuria Musculoskeletal: Denies: back pain Skin: Denies: rash Neurological: Denies: headache Past Medical History Past Medical History: Cancer Additional Past Medical History / Comment(s): colon cancer, right sided kidney failure History of Any Multi-Drug Resistant Organisms: C-DIFF Date of last positivie culture/infection: 2015 MDRO Source:: Bowel Past Surgical History: Appendectomy, Bowel Resection Past Psychological History: No Psychological Hx Reported Smoking Status: Never smoker Past Alcohol Use History: None Reported Past Drug Use History: None Reported - Past Family History Brother(s) Family Medical History: Cancer Additional Family Medical History / Comment(s): SIDS, leukemia Father Additional Family Medical History / Comment(s): brain aneurysm General Exam Limitations: no limitations General appearance: alert, in no apparent distress Head exam: Present: atraumatic Eye exam: Present: normal appearance, PERRL ENT exam: Present: normal oropharynx Neck exam: Present: normal inspection Respiratory exam: Present: normal lung sounds bilaterally Cardiovascular Exam: Present: regular rate, normal rhythm Expanded Peripheral pulses: 2+: Posterior Tibialis (R), Posterior Tibialis (L) GI/Abdominal exam: Present: soft, tenderness (Mild tenderness right flank/upper abdomen). Absent: guarding, rebound, rigid Extremities exam: Present: normal inspection. Absent: pedal edema, calf tenderness Neurological exam: Present: alert Psychiatric exam: Present: normal affect, normal mood Skin exam: Present: normal color Course Vital Signs 01/16/18 01/16/18 12:36 15:13 Temperature 101.2 F H 101.5 F H Pulse Rate 91 82 Respiratory 18 20 Rate Blood Pressure 123/79 109/75 O2 Sat by Pulse 98 100 Oximetry - Reevaluation(s) Reevaluation #1: 01/16/18 16:34 Patient reevaluated and resting comfortably in bed. Patient and family were updated on results. Case was discussed in detail with Dr. Larsen who is familiar with this patient. He does recommend discussing case with urology and possible transfer. Case was also discussed in detail with Dr. Esparza who stated he would be willing to evaluate the patient admitted. He did later called back and state there was a discussion regarding this patient and difficulty placing nephrostomy tube. He does recommend transfer. Patient and are updated regarding this. is unwilling to make decision as far as transfer at this time. She is leaving to go home at this time to do research on the computer and make her own decision where she would like him transferred to. 01/16/18 16:36 Patient will be held in the emergency department at this time pending patient and decision on where they would like to be transferred to. Dr. Blakely is made aware. 01/16/18 16:37 With fever and heart rate of 91 patient does meet sepsis criteria diagnosed at 1637. Blood culture, lactic acid have been drawn. IV antibiotics have been ordered. EKG Findings - EKG Comments: EKG Findings:: Normal sinus rhythm 81. CO 158. QRS 70. QT 350. QTC 406. Normal axis. Normal QRS. No acute ST change. Medical Decision Making - Lab Data Result diagrams: 01/16/18 12:56 01/16/18 12:56 Lab Results 01/16/18 01/16/18 01/16/18 Range/Units 12:56 12:56 12:56 WBC 8.6 (3.8-10.6) k/uL RBC 3.06 L (4.30-5.90) m/uL Hgb 10.4 L (13.0-17.5) gm/dL Hct 31.0 L (39.0-53.0) % MCV 101.2 H (80.0-100.0) fL MCH 33.9 (25.0-35.0) pg MCHC 33.5 (31.0-37.0) g/dL RDW 17.8 H (11.5-15.5) % Plt Count 156 D (150-450) k/uL Neutrophils % 87 % Lymphocytes % 6 % Monocytes % 6 % Eosinophils % 0 % Basophils % 0 % Neutrophils # 7.5 (1.3-7.7) k/uL Lymphocytes # 0.5 L (1.0-4.8) k/uL Monocytes # 0.6 (0-1.0) k/uL Eosinophils # 0.0 (0-0.7) k/uL Basophils # 0.0 (0-0.2) k/uL Poikilocytosis Slight Anisocytosis Slight Macrocytosis Moderate PT (9.0-12.0) sec INR (<1.2) APTT (22.0-30.0) sec Sodium 146 H (137-145) mmol/L Potassium 3.7 (3.5-5.1) mmol/L Chloride 105 (98-107) mmol/L Carbon Dioxide 22 (22-30) mmol/L Anion Gap 19 mmol/L BUN 21 H (9-20) mg/dL Creatinine 1.20 (0.66-1.25) mg/dL Est GFR (CKD-EPI)AfAm 76 (>60 ml/min/1.73 sqM) Est GFR (CKD-EPI)NonAf 66 (>60 ml/min/1.73 sqM) Glucose 123 H (74-99) mg/dL Plasma Lactic Acid Ruel 2.0 (0.7-2.0) mmol/L Calcium 9.3 (8.4-10.2) mg/dL Total Bilirubin 3.8 H (0.2-1.3) mg/dL AST 30 (17-59) U/L ALT 36 (21-72) U/L Alkaline Phosphatase 130 H (38-126) U/L Total Protein 7.0 (6.3-8.2) g/dL Albumin 3.6 (3.5-5.0) g/dL Urine Color Urine Appearance (Clear) Urine pH (5.0-8.0) Ur Specific [place] (1.001-1.035) Urine Protein (Negative) Urine Glucose (UA) (Negative) Urine Ketones (Negative) Urine Blood (Negative) Urine Nitrite (Negative) Urine Bilirubin (Negative) Urine Urobilinogen (<2.0) mg/dL Ur Leukocyte Esterase (Negative) Urine RBC (0-5) /hpf Urine WBC (0-5) /hpf Urine Bacteria (None) /hpf Urine Mucus (None) /hpf 01/16/18 01/16/18 Range/Units 12:56 15:10 WBC (3.8-10.6) k/uL RBC (4.30-5.90) m/uL Hgb (13.0-17.5) gm/dL Hct (39.0-53.0) % MCV (80.0-100.0) fL MCH (25.0-35.0) pg MCHC (31.0-37.0) g/dL RDW (11.5-15.5) % Plt Count (150-450) k/uL Neutrophils % % Lymphocytes % % Monocytes % % Eosinophils % % Basophils % % Neutrophils # (1.3-7.7) k/uL Lymphocytes # (1.0-4.8) k/uL Monocytes # (0-1.0) k/uL Eosinophils # (0-0.7) k/uL Basophils # (0-0.2) k/uL Poikilocytosis Anisocytosis Macrocytosis PT 12.4 H (9.0-12.0) sec INR 1.3 H (<1.2) APTT 27.1 (22.0-30.0) sec Sodium (137-145) mmol/L Potassium (3.5-5.1) mmol/L Chloride (98-107) mmol/L Carbon Dioxide (22-30) mmol/L Anion Gap mmol/L BUN (9-20) mg/dL Creatinine (0.66-1.25) mg/dL Est GFR (CKD-EPI)AfAm (>60 ml/min/1.73 sqM) Est GFR (CKD-EPI)NonAf (>60 ml/min/1.73 sqM) Glucose (74-99) mg/dL Plasma Lactic Acid Ruel (0.7-2.0) mmol/L Calcium (8.4-10.2) mg/dL Total Bilirubin (0.2-1.3) mg/dL AST (17-59) U/L ALT (21-72) U/L Alkaline Phosphatase (38-126) U/L Total Protein (6.3-8.2) g/dL Albumin (3.5-5.0) g/dL Urine Color Dark Yellow Urine Appearance Clear (Clear) Urine pH 6.0 (5.0-8.0) Ur Specific [place] 1.025 (1.001-1.035) Urine Protein 2+ H (Negative) Urine Glucose (UA) Negative (Negative) Urine Ketones Negative (Negative) Urine Blood Small H (Negative) Urine Nitrite Negative (Negative) Urine Bilirubin 1+ H (Negative) Urine Urobilinogen 12.0 (<2.0) mg/dL Ur Leukocyte Esterase Negative (Negative) Urine RBC 3 (0-5) /hpf Urine WBC 9 H (0-5) /hpf Urine Bacteria Rare H (None) /hpf Urine Mucus Rare H (None) /hpf - Radiology Data Radiology results: report reviewed (Ultrasound of the gallbladder is limited. Unable to evaluate gallbladder.), image reviewed (Two-view chest x-ray shows no acute process.) Disposition Clinical Impression: UTI (urinary tract infection), Hydronephrosis Disposition: OTHER INSTITUTION NOT DEFINED Is patient prescribed a controlled substance at d/c from ED?: No Referrals: Mick Russ MD [Primary Care Provider] - 1-2 days Time of Disposition: 16:37 - Out of Hospital Transfer - Req. Specs Out of Hospital Transfer - Requested Specifics: Other Emergency Center
[2018-01-16] MEDS ORDERED: SODIUM CHLORIDE 0.9% 500 ML IV SCH (13:15)
[2018-01-16 13:35] LABS: Anisocytosis Slight; Basophils % (A) 0 %; Eosinophils % (A) 0 %; HGB 10.4 gm/dL (13.0-17.5); Lymphocytes # (A) 0.5 k/uL (1.0-4.8); Lymphocytes % (A) 6 %; MCH 33.9 pg (25.0-35.0); MCHC 33.5 g/dL (31.0-37.0); MCV 101.2 fL (80.0-100.0); Macrocytosis Moderate; Mean Platelet Volume 7.6; Monocytes # (A) 0.6 k/uL (0-1.0); Monocytes % (A) 6 %; Neutrophils # (A) 7.5 k/uL (1.3-7.7); Neutrophils % (A) 87 %; Poikilocytosis Slight; RBC 3.06 m/uL (4.30-5.90); RDW 17.8 % (11.5-15.5); WBC 8.6 k/uL (3.8-10.6)
[2018-01-16 13:36] LABS: Albumin 3.6 g/dL (3.5-5.0); Calcium 9.3 mg/dL (8.4-10.2); Potassium 3.7 mmol/L (3.5-5.1); Total Bilirubin 3.8 mg/dL (0.2-1.3)
[2018-01-16 13:38] LABS: Platelet Count 156 k/uL (150-450)
--- NOTE | 2018-01-16 13:43 | XR ---
EXAMINATION TYPE: XR chest 2V DATE OF EXAM: 01/16/2018 COMPARISON: NONE INDICATION: Fever nausea vomiting diarrhea history of colon cancer TECHNIQUE: Frontal and lateral views of the chest are obtained. FINDINGS: The heart size is slightly prominent. The pulmonary vasculature is normal. There is blunting left costophrenic angle. Consider atelectasis within the differential.. Port is pr esent on the right with the tip in the superior vena cava region. IMPRESSION: 1. There may be some minimal atelectasis of the left costophrenic angle. 2. Mild cardiomegaly
[2018-01-16 14:23] LABS: INR 1.3 (<1.2); Partial Thromboplastin Time 27.1 sec (22.0-30.0); Prothrombin Time 12.4 sec (9.0-12.0)
[2018-01-16] MEDS ORDERED: ACETAMINOPHEN ORAL SUSP 160 MG/5 ML CUP PO STA (15:14)
--- NOTE | 2018-01-16 15:21 | US ---
EXAMINATION TYPE: US gallbladder DATE OF EXAM: 01/16/2018 COMPARISON: CT CLINICAL HISTORY: Pain. EXAM MEASUREMENTS: Liver Length: 13.7 cm Gallbladder Wall: not positively identified CBD: 0.3 cm Right Kidney: 16.7 x 7.5 x 7.9 cm Excessive midline bowel gas, very limited acoustic window lateral an posterior. Technically difficult limited study. Pancreas: wnl Liver: very limited visualization, cyst noted measuring 2.9 x 2.5 x 2.5cm Gallbladder: not positively identified, there is a structure that may be the gallbladder in RUQ but technologist can only see this through one acoustic window and is unable to assess whether this is th e gallbladder or ff. Evidence for sonographic Trivedi's sign: no CBD: very limited portion visualized Right Kidney: enlarged, hypoechoic structure inferior which could be a cyst or part of loss of raheel l parenchyma IMPRESSION: 1. Hepatic cyst appears simple. 2. Unable to evaluate gallbladder bed region. Repeat imaging following nothing by mouth status may be useful. 3. Very limited exam
[2018-01-16] MEDS ORDERED: ACETAMINOPHEN IV (For NPO) 1,000 MG in EMPTY BAG 1 BAG IVPB STA (15:37)
[2018-01-16 15:40] LABS: Appearance,Urine Clear (Clear); Bacteria,Urine Rare /hpf; Bilirubin,Urine 1+ (Negative); Blood,Urine Small (Negative); Color,Urine Dark Yellow; Glucose,Urine (UA) Negative (Negative); Ketones,Urine Negative (Negative); Leukocyte Esterase,Urine Negative (Negative); Mucus,Urine Rare /hpf; Nitrite,Urine Negative (Negative); Protein,Urine 2+ (Negative); RBC,Urine 3 /hpf (0-5); Specific Gravity,Urine 1.025 (1.001-1.035); WBC,Urine 9 /hpf (0-5)
[2018-01-16] MEDS ORDERED: SODIUM CHLORIDE 0.9% 1,000 ML IV STA (16:36)
[2018-01-16] MEDS ORDERED: cefTRIAXone IN SWFI 1,000 MG/10 ML SYRINGE IVP STA (16:37)
[2018-01-16] MEDS ORDERED: ONDANSETRON 4 MG in SODIUM CHLORIDE 0.9% 50 ML IVPB ONE (16:41)
[2018-01-16 18:15] VITALS: BP 114/69; PULSE 75; RESP 20; TEMP 100.6
== END 2018-01-16 18:52 | disposition other institution (70) ==
LOC: EC 12:35
DX: N39.0 Urinary tract infection, site not specified (principal); N13.30 Unspecified hydronephrosis; C18.9 Malignant neoplasm of colon, unspecified; N19 Unspecified kidney failure; Z79.01 Long term (current) use of anticoagulants; Z79.899 Other long term (current) drug therapy; Z90.49 Acquired absence of other specified parts of digestive tract; Z85.038 Personal history of other malignant neoplasm of large intestine
CPT/HCPCS: 36415; 93005; 80053; 83605; 85025; 85610; 85730; 81001; 87040; 87086; 87077; 87186; 71046; 76705; 99284; 96374; 96375 ×2; 96376; 96361 ×4; J2405; J0696; J0131

== ENCOUNTER → 2018-02-07 | Outpatient (CLI) | payer BC ==
--- NOTE | 2018-02-09 11:55 | PE ---
EXAMINATION TYPE: PET CT fusion skull to thigh DATE OF EXAM: 02/07/2018 COMPARISON: Prior PET/CT March 22, 2017 and older studies. Prior CT abdomen and pelvis January 11, 2018 HISTORY: Colorectal cancer progress study completed chemotherapy January 07, 2018, originally diagnosed a few years ago. TECHNIQUE: Following the intravenous administration of 13.056 mCi of F-18 FDG, whole body images are performed from the top of skull the midthigh. Images are reviewed on the computer in the coronal, a xial, and sagittal planes. Reconstructed rotating images are created on independent workstation and reviewed on the computer. A noncontrast CT is performed in conjunction with the PET scan. SCAN: Subsequent Scan FINDINGS: HEAD AND NECK: No suspicious radiotracer uptake identified CHEST, MEDIASTINUM, AND HILAR REGION: No suspicious radiotracer uptake identified. ABDOMEN AND PELVIS: There is redemonstration of right presacral hypermetabolic mass indistinct from a djacent right-sided hydroureter measuring roughly 3.0 x 2.0 cm axial image 230, max SUV is 19.31 on c urrent study. This may be inaccurate as there is noted indistinct margins from right ureter with norm al excretion. Eccentric coarse to the dilated right ureter remains present. Suspect eccentric coarse or anterior outpouching near images 236 through to 39 not significantly changed from prior, cannot ex clude second hypermetabolic mass at this level. Perhaps mild uptake at level of rectum is not signifi cantly changed. Suture sigmoid colon are seen axial image 239. Small subcentimeter focus of hypermeta bolic uptake in the anus axial image 265, max SUV is 8.23. This is less prominent than prior. No new areas of abnormal hypermetabolic uptake are present. OSSEOUS STRUCTURES: No new areas of abnormal hypermetabolic uptake. OTHER CT: Bilateral gynecomastia is redemonstrated. There is right internal jugular Mediport catheter redemonstrated. There is redemonstration of right-sided arch. Hypodense lesions scattered throughout the liver felt to reflect simple cysts are redemonstrated. Enlarged right kidney with multiple cysts and severe hydronephrosis is redemonstrated. 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 There is multilevel spurring in the spine. There is facet arthropathy lower lumbar levels. IMPRESSION: Interval improvement in abnormal hypermetabolic uptake at level of anus. Difficult to conner ntify if right upper presacral uptake is improved or progressed with indistinct margins from dilated distal right ureter noted. No new metastatic disease identified.
== END ==
LOC: RADPETMAIN 09:56
PROVIDERS: ATTEND Internal Medicine Hematology & Oncology
DX: C18.7 Malignant neoplasm of sigmoid colon (principal); R93.3 Abnormal findings on diagnostic imaging of other parts of digestive tract; N28.82 Megaloureter
CPT/HCPCS: 78815; A9552

== ENCOUNTER → 2018-06-03 | Outpatient (CLI) | payer OTHER ==
--- NOTE | 2018-06-03 16:32 | US ---
EXAMINATION TYPE: US venous doppler duplex LE LT DATE OF EXAM: 06/03/2018 4:24 PM COMPARISON: NONE CLINICAL HISTORY: Left Leg Swelling R22.42. Left leg swelling. On blood thinners. Hx of right leg D VT. No redness. SIDE PERFORMED: Left TECHNIQUE: The lower extremity deep venous system is examined utilizing real time linear array sonog nayeli with graded compression, doppler sonography and color-flow sonography. VESSELS IMAGED: External Iliac Vein (EIV) Common Femoral Vein Deep Femoral Vein Greater Saphenous Vein * Femoral Vein Popliteal Vein Small Saphenous Vein * Proximal Calf Veins (* superficial vessels) There is normal flow, compressibility, vascular waveforms Left Leg: Negative for DVT IMPRESSION: No evident deep venous thrombosis at or above the left knee.
== END ==
LOC: RADUSWWP 15:59
PROVIDERS: ATTEND Internal Medicine Hematology & Oncology
DX: R22.42 Localized swelling, mass and lump, left lower limb (principal)

== ENCOUNTER → 2018-07-25 | Outpatient (CLI) | payer OTHER ==
--- NOTE | 2018-07-27 14:14 | PE ---
EXAMINATION TYPE: PET CT fusion skull to thigh DATE OF EXAM: 07/25/2018 COMPARISON: PET/CT dated 02/07/2018, 08/02/2017 and 03/09/2016 HISTORY: Colorectal carcinoma. Chemotherapy and December 2017. TECHNIQUE: Following the intravenous administration of 13.49 mCi of F-18 FDG, whole body images are performed from the skull base to the midthigh. Images are reviewed on the computer in the coronal, a xial, and sagittal planes. Reconstructed rotating images are created on independent workstation and reviewed on the computer. A localization and attenuation correction CT is performed in conjunction with the PET scan. SCAN: Subsequent. FINDINGS: Mediastinal background: 2.04 Abdominal background: 2.72 SKULL BASE AND NECK: Posterior to the true vocal cords there is uptake is likely physiologic measuri ng a maximum SUV of 6.48. CHEST, MEDIASTINUM, AND HILAR REGION: No suspicious hypermetabolic uptake. ABDOMEN AND PELVIS: Again the retroperitoneal metastatic adenopathy posterior to the severely dilated right ureter is difficult to separate without contrast, however has markedly worsened in size measur ing approximately 4.8 x 6.6 cm on series 3 image 208 with a maximum SUV of 13.4 (previous maximum SUV of 19.3 however this is thought to have been measured including the ureter on the prior exam) extend ing into the low pelvis where there is a maximum SUV of 15.5 on series 3 image 219 with this measures approximately 4.8 x 5.3 cm. Adenopathy along the right pelvic sidewall continues with a maximum SUV of 15.0 and an enlarged right pelvic sidewall lymph node on image 224 measuring 3.9 cm in short axis. Along the anal verge maximum SUV is measured at 3.76 (previously 8.2). Slight increased left hepatic uptake anterior to the gallbladder fossa measures 4.[address] level of image [address] correlate[address] OSSEOUS STRUCTURES: No suspicious hypermetabolic uptake. OTHER CT: Paranasal sinuses demonstrate mild mucosal thickening in the left maxillary sinus and front al sinus. Otherwise paranasal sinuses and mastoid air cells are well aerated. Again there is mild tesha ateral gynecomastia. Right-sided aortic arch is redemonstrated. Polypoid 6 mm lesion is seen dependently within the trachea on series 3 image 65. There is a right-si ded Mediport terminating in the superior vena cava. Probable 2.2 cm hepatic cyst is redemonstrated. Again there is severe right hydroureteronephrosis with tortuosity of the markedly dilated ureter thro ughout. Urinary bladder is decompressed. Heterogenous prostate gland impresses upon the posterior uri nary bladder. Focal areas of high density within the urinary bladder are appreciated on series 3 imag e 237 and could represent developing calculi or hemorrhage. The dilated ureter is intimately associat ed with the retroperitoneal mass as seen on the prior. IMPRESSION: 1. Progression of disease. The metastatic retroperitoneal adenopathy extending from the presacral spa ce L4 within the pelvis 2 creating mass effect upon the distal ureter has markedly increased in size currently measuring up to 6.6 cm and previously measuring up to approximately 3.0 cm on the PET/CT of 02/07/2018. Again there is resultant severe right hydroureteronephrosis. 2. Possible tracheal polyp versus nondependent adherent tracheal secretions for which direct visualiz ation could be performed. 3. Subtle hypermetabolic activity in segment 4A of the liver without CT correlate may simply represen t diffuse heterogeneity. If this patient can't receive contrast contrast enhanced CT abdomen is recom mended. Alternatively attention on follow-up exams to this region is recommended.
== END ==
LOC: RADPETMAIN 07:53
PROVIDERS: ATTEND Internal Medicine Hematology & Oncology
DX: C18.7 Malignant neoplasm of sigmoid colon (principal); C77.2 Secondary and unspecified malignant neoplasm of intra-abdominal lymph nodes; N13.30 Unspecified hydronephrosis; R93.2 Abnormal findings on diagnostic imaging of liver and biliary tract
CPT/HCPCS: 78815; A9552

== ENCOUNTER 2018-10-22 08:18 | Inpatient (IN) | payer MEDICARE ==
[2018-10-22] MEDS ORDERED: SODIUM CHLORIDE 0.9% 2,000 ML IV STA (08:37)
[2018-10-22] MEDS ORDERED: ONDANSETRON 4 MG/2 ML VIAL IVP STA (08:37)
[2018-10-22] MEDS ORDERED: SODIUM CHLORIDE 0.9% 1,000 ML IV STA (08:37)
[2018-10-22] MEDS ORDERED: HYDROmorphone 1 MG/ML 1 ML SYRINGE IVP STA (09:08)
--- NOTE | 2018-10-22 09:10 | ED ---
Nausea/Vomiting/Diarrhea HPI - General Source: patient, RN notes reviewed Mode of arrival: wheelchair Limitations: no limitations <Eliceo Alfredo - Last Filed: 10/22/18 11:36> <Tello Olivia - Last Filed: 10/22/18 11:55> - General Chief complaint: Nausea/Vomiting/Diarrhea Stated complaint: Vomiting Time Seen by Provider: 10/22/18 08:26 - History of Present Illness Initial comments: 57-year-old male presents emergency Department chief complaint of nausea vomiting, weakness. Patient states that he is on chemotherapy for colon cancer. Patient had prior colon removal by Dr. Sanz. Patient has had some intermittent nausea vomiting with his chemotherapy but never to this extent. Patient states is Nothing down over the last 4-5 days. Patient states he is so weak he feels like it's hard to ambulate. He denies any chest pain or shortness breath. He does complain of increased lower abdominal pain. Patient states he always has diarrhea secondary to colonectomy. Patient reports no fever, chills, dysuria, hematuria. Patient states he only takes in approximately 10-12 ounces of fluids daily. (Eliceo Alfredo) - Related Data Home Medications Medication Instructions Recorded Confirmed Apixaban [Eliquis] 2.5 mg PO BID 01/11/18 10/22/18 Diphenox-Atrop 2.5-0.025 mg 1 tab PO QID PRN 01/11/18 10/22/18 [Lomotil] oxyCODONE-APAP 10-325MG [Percocet 1 - 2 tab PO Q6HR PRN 01/11/18 10/22/18 10-325 mg] Diphenox-Atrop 2.5-0.025 mg 1 tab PO 5XD PRN 10/22/18 10/22/18 [Lomotil] Prochlorperazine [Compazine] 10 mg PO Q6H MDD NAUSEA 10/22/18 10/22/18 Allergies Allergy/AdvReac Type Severity Reaction Status Date / Time No Known Allergies Allergy Verified 10/22/18 08:41 Review of Systems ROS Other: All systems not noted in ROS Statement are negative. <Eliceo Alfredo - Last Filed: 10/22/18 11:36> ROS Other: All systems not noted in ROS Statement are negative. <Tello Olivia - Last Filed: 10/22/18 11:55> ROS Statement: Those systems with pertinent positive or pertinent negative responses have been documented in the HPI. Past Medical History Past Medical History: Cancer Additional Past Medical History / Comment(s): colon cancer, right sided kidney failure History of Any Multi-Drug Resistant Organisms: C-DIFF Date of last positivie culture/infection: 2016 MDRO Source:: Bowel Past Surgical History: Appendectomy, Bowel Resection Past Psychological History: No Psychological Hx Reported Smoking Status: Never smoker Past Alcohol Use History: None Reported Past Drug Use History: None Reported - Past Family History Brother(s) Family Medical History: Cancer Additional Family Medical History / Comment(s): SIDS, leukemia Father Additional Family Medical History / Comment(s): brain aneurysm <Eliceo Alfredo - Last Filed: 10/22/18 11:36> General Exam Limitations: no limitations General appearance: alert, in no apparent distress Head exam: Present: atraumatic, normocephalic, normal inspection Respiratory exam: Present: normal lung sounds bilaterally. Absent: respiratory distress, wheezes, rales, rhonchi, stridor Cardiovascular Exam: Present: normal rhythm, tachycardia, normal heart sounds. Absent: systolic murmur, diastolic murmur, rubs, gallop, clicks GI/Abdominal exam: Present: soft, tenderness (Mild epigastric with moderate lower abdominal tenderness), normal bowel sounds. Absent: distended, guarding, rebound, rigid Back exam: Absent: CVA tenderness (R), CVA tenderness (L) Neurological exam: Present: alert, oriented X3, CN II-XII intact Skin exam: Present: warm, dry, intact, normal color. Absent: rash <Eliceo Alfredo - Last Filed: 10/22/18 11:36> Course <Eliceo Alfredo - Last Filed: 10/22/18 11:36> <Tello Olivia - Last Filed: 10/22/18 11:55> Vital Signs 10/22/18 10/22/18 10/22/18 08:21 09:30 10:00 Temperature 98.2 F Pulse Rate 114 H 78 78 Respiratory 16 18 18 Rate Blood Pressure 101/78 131/96 131/96 O2 Sat by Pulse 99 95 96 Oximetry 10/22/18 10/22/18 10/22/18 10:30 11:00 11:30 Temperature Pulse Rate 72 81 76 Respiratory 18 17 18 Rate Blood Pressure 134/90 134/90 139/86 O2 Sat by Pulse 97 99 98 Oximetry - Reevaluation(s) Reevaluation #1: 10/22/18 11:54 Patient reevaluated by myself, Dr. Olivia. Patient resting comfortably in bed and states symptoms have improved. Abdomen does have moderate diffuse tenderness with palpation with mild guarding. CT report reviewed. Patient and family updated on results and plan. Case discussed in detail with Dr. Larsen, covering for Dr. Russ, who will admit. Case also discussed with Dr. Odonnell. (Tello Olivia) Medical Decision Making - Lab Data Result diagrams: 10/22/18 08:55 10/22/18 08:55 <Eliceo Alfredo - Last Filed: 10/22/18 11:36> - Lab Data Result diagrams: 10/22/18 08:55 10/22/18 08:55 <Tello Olivia - Last Filed: 10/22/18 11:55> - Medical Decision Making 57-year-old male presented for nausea vomiting. Patient had lab work, urinalysis, IV fluids, antiemetics, pain medications and CT of abdomen pelvis which reveals possibility of enteritis versus partial small bowel infection. Patient will be admitted for IV hydration, further evaluation. (Eliceo Alfredo) - Lab Data Lab Results 10/22/18 10/22/18 Range/Units 08:55 08:55 WBC 3.4 L (3.8-10.6) k/uL RBC 4.76 (4.30-5.90) m/uL Hgb 11.7 L (13.0-17.5) gm/dL Hct 37.2 L (39.0-53.0) % MCV 78.2 L (80.0-100.0) fL MCH 24.7 L (25.0-35.0) pg MCHC 31.6 (31.0-37.0) g/dL RDW 18.0 H (11.5-15.5) % Plt Count 216 (150-450) k/uL Neutrophils % 70 % Lymphocytes % 19 % Monocytes % 6 % Eosinophils % 2 % Basophils % 0 % Neutrophils # 2.4 (1.3-7.7) k/uL Lymphocytes # 0.7 L (1.0-4.8) k/uL Monocytes # 0.2 (0-1.0) k/uL Eosinophils # 0.1 (0-0.7) k/uL Basophils # 0.0 (0-0.2) k/uL Manual Slide Review Performed Hypochromasia Moderate Poikilocytosis (manual Present Anisocytosis Slight Microcytosis Slight Sodium 135 L (137-145) mmol/L Potassium 4.1 (3.5-5.1) mmol/L Chloride 101 (98-107) mmol/L Carbon Dioxide 20 L (22-30) mmol/L Anion Gap 14 mmol/L BUN 24 H (9-20) mg/dL Creatinine 1.30 H (0.66-1.25) mg/dL Est GFR (CKD-EPI)AfAm 69 (>60 ml/min/1.73 sqM) Est GFR (CKD-EPI)NonAf 60 (>60 ml/min/1.73 sqM) Glucose 144 H (74-99) mg/dL Calcium 9.1 (8.4-10.2) mg/dL Phosphorus 3.8 (2.5-4.5) mg/dL Magnesium 2.1 (1.6-2.3) mg/dL Total Bilirubin 1.1 (0.2-1.3) mg/dL AST 15 L (17-59) U/L ALT 25 (21-72) U/L Alkaline Phosphatase 113 (38-126) U/L Total Protein 7.5 (6.3-8.2) g/dL Albumin 3.8 (3.5-5.0) g/dL Amylase <30 L (30-110) U/L Lipase 22 L (23-300) U/L Disposition <Eliceo Alfredo - Last Filed: 10/22/18 11:36> <Tello Olivia - Last Filed: 10/22/18 11:55> Clinical Impression: Partial small bowel obstruction, Colon cancer, Dehydration, Nausea & vomiting Disposition: ADMITTED IP TO THIS [facility] Condition: Fair Referrals: Mick Russ MD [Primary Care Provider] - 1-2 days
[2018-10-22 09:18] LABS: ALT 25 U/L (21-72); AST 15 U/L (17-59); Albumin 3.8 g/dL (3.5-5.0); Alkaline Phosphatase 113 U/L (38-126); Amylase <30 U/L (30-110); Anion Gap 14 mmol/L; Blood Urea Nitrogen 24 mg/dL (9-20); Calcium 9.1 mg/dL (8.4-10.2); Carbon Dioxide 20 mmol/L (22-30); Chloride 101 mmol/L (98-107); Glucose 144 mg/dL (74-99); Lipase 22 U/L (23-300); Magnesium 2.1 mg/dL (1.6-2.3); Phosphorus 3.8 mg/dL (2.5-4.5); Potassium 4.1 mmol/L (3.5-5.1); Sodium 135 mmol/L (137-145); Total Bilirubin 1.1 mg/dL (0.2-1.3); Total Protein 7.5 g/dL (6.3-8.2)
[2018-10-22 09:41] LABS: Anisocytosis Slight; Basophils % (A) 0 %; Eosinophils # (A) 0.1 k/uL (0-0.7); Eosinophils % (A) 2 %; HCT 37.2 % (39.0-53.0); HGB 11.7 gm/dL (13.0-17.5); Hypochromasia Moderate; Lymphocytes # (A) 0.7 k/uL (1.0-4.8); Lymphocytes % (A) 19 %; MCH 24.7 pg (25.0-35.0); MCHC 31.6 g/dL (31.0-37.0); MCV 78.2 fL (80.0-100.0); Microcytosis Slight; Monocytes # (A) 0.2 k/uL (0-1.0); Monocytes % (A) 6 %; Neutrophils # (A) 2.4 k/uL (1.3-7.7); Neutrophils % (A) 70 %; Platelet Count 216 k/uL (150-450); RBC 4.76 m/uL (4.30-5.90); WBC 3.4 k/uL (3.8-10.6)
[2018-10-22 10:19] LABS: Poikilocytosis (M) Present
--- NOTE | 2018-10-22 10:44 | CT ---
EXAMINATION TYPE: CT abdomen pelvis wo con DATE OF EXAM: 10/22/2018 COMPARISON: PET/CT 07/25/2018, CT abdomen pelvis 01/11/2018 HISTORY: Flu like symptoms post chemo treatment CT DLP: 484.6 mGycm Automated exposure control for dose reduction was used. TECHNIQUE: Helical acquisition of images from the lung bases through the pelvis. FINDINGS: Lack of intravenous contrast could compromise sensitivity. LUNG BASES: No significant abnormality is appreciated. AORTA: No significant abnormality is appreciated. LIVER/GB: No significant interval change is appreciated. PANCREAS: No significant abnormality is seen. SPLEEN: No significant abnormality is seen. ADRENALS: No significant abnormality is seen. KIDNEYS: No interval change is seen. Marked hydronephrosis of the right kidney is a stable finding, t here is right hydroureter extending to the level of the patient's pelvic mass REPRODUCTIVE ORGANS: No prostate calcifications are noted. URINARY BLADDER: Punctate foci are present within the urinary bladder in the dependent portion, ther e are calcifications extending to the level of the prostatic urethra. BOWEL: There are fluid-filled distended loops of small and large bowel present with some areas of wa ll thickening within the pelvis, there is a caliber change present near the site of patient's surgica l anastomosis within the pelvis immediately adjacent to patient's large presacral mass. FREE AIR: No Free Air is visible. ASCITES: None visible. PELVIC ADENOPATHY: None visualized. RETROPERITONEAL ADENOPATHY: Again noted, large retroperitoneal mass extends along the distribution o f the psoas distally on the right extends into the pelvis and presacral region measuring as much as 1 0 cm in AP dimension by 10 cm in cephalad to caudal dimension by 6 cm in transverse dimension. OSSEOUS STRUCTURES: Bone destruction is noted of the right sacrum likely secondary to patient's pres acral mass IMPRESSION: CORRELATE TO EXCLUDE PARTIAL BOWEL OBSTRUCTION VERSUS ENTERITIS. THERE ARE MULTIPLE SMALL BLADDER TANYA CULI PRESENT. Findings compatible with patient's history of colon carcinoma as described.
[2018-10-22] MEDS ORDERED: NALOXONE 0.4 MG/ML 1 ML VIAL IV PRN (11:38)
[2018-10-22] MEDS: MORPHINE SULFATE 4 MG/ML SYRINGE IV PRN ×3 (12:35→22:40)
[2018-10-22] MEDS: ONDANSETRON 4 MG/2 ML VIAL IVP PRN ×2 (12:35→20:36)
[2018-10-22 12:50] LABS: Appearance,Urine Cloudy (Clear); Bacteria,Urine Occasional /hpf; Bilirubin,Urine 1+ (Negative); Blood,Urine Moderate (Negative); Color,Urine Yellow; Glucose,Urine (UA) Negative (Negative); Hyaline Casts,Urine 33 /lpf (0-2); Ketones,Urine Negative (Negative); Leukocyte Esterase,Urine Negative (Negative); Mucus,Urine Many /hpf; Nitrite,Urine Negative (Negative); PH, Urine 5.5 (5.0-8.0); Protein,Urine 2+ (Negative); RBC,Urine 13 /hpf (0-5); Specific Gravity,Urine 1.031 (1.001-1.035); Squamous Epithelial Cell,Urine 2 /hpf (0-4); WBC,Urine 3 /hpf (0-5)
--- NOTE | 2018-10-22 13:50 | P.HPIM ---
History of Present Illness H&P Date: 10/22/18 Chief Complaint: Abdominal pain, nausea vomiting, bowel obstruction, history of colon cancer 57-year-old male of Dr. Russ patient with past medical history of stage III colon cancer has been on chemotherapy has metastasis to the spine. Patient seen Dr. Tariq on regular basis. Has not felt well in the last 4-5 days developed to have generalized weakness fatigue not been able template to walk developed to have significant abdominal pain with nausea and vomiting not able to keep any food or fluid down symptoms become much worse lately patient is normally having diarrhea since his colectomy but lately has been more constipated and no bowel movement last 48 hours. Ended up coming to the emergency apartment at [facility] where was seen and evaluated he was in acute kidney injury with mild leukopenia and mild anemia and mild dehydration. CT of the abdomen showed partial bowel obstruction versus enteritis also had multiple bladder stone. Patient was hospitalized continue hydration no NG tube needed this point we'll consult general surgery and consult oncology continue conservative management next 24 hours if continued to have nausea vomiting and worsening x-ray might require an NG tube with decompression and possible intervention. Review of Systems CONSTITUTIONAL: Well-developed no acute respiratory distress. EYES: No icterus sclerae, no conjunctivitis. EARS, NOSE, MOUTH, THROAT, and FACE: No sore throat, lymphadenopathy, carotid bruits or deformity. RESPIRATORY: No SOB cough or wheezes. CARDIOVASCULAR: No CP, Palpitation, PND, Orthopnea, or angina. GASTROINTESTINAL: Positive abdominal pain with nausea and vomiting positive distention with discomfort with no bowel movement last 48 hours. History of colon cancer post partial resection. GENITOURINARY: Negative for Hematuria or UTI, no kidney stones. INTEGUMENT/BREAST: Negative for any muscular injury with mild osteoarthritis.. HEMATOLOGIC/LYMPHATIC: Negative for bleed or purpura. MUSCULOSKELTAL: Negative for Myalgia or arthralgia. NEURLOGICAL: No LOC, Sz or syncope, blurred vision dizziness or abnormality.. BEHAVIORAL/PSYCH: Negative. ENDOCRINE: Negative. Past Medical History Past Medical History: Cancer Additional Past Medical History / Comment(s): colon cancer, right sided kidney failure History of Any Multi-Drug Resistant Organisms: C-DIFF Date of last positivie culture/infection: 2015 MDRO Source:: Bowel Past Surgical History: Appendectomy, Bowel Resection Past Psychological History: No Psychological Hx Reported Smoking Status: Never smoker Past Alcohol Use History: None Reported Past Drug Use History: None Reported - Past Family History Brother(s) Family Medical History: Cancer Additional Family Medical History / Comment(s): SIDS, leukemia Father Additional Family Medical History / Comment(s): brain aneurysm Medications and Allergies Home Medications Medication Instructions Recorded Confirmed Type Apixaban [Eliquis] 2.5 mg PO BID 01/11/18 10/22/18 History Diphenox-Atrop 2.5-0.025 mg 1 tab PO QID PRN 01/11/18 10/22/18 History [Lomotil] oxyCODONE-APAP 10-325MG [Percocet 1 - 2 tab PO Q6HR PRN 01/11/18 10/22/18 History 10-325 mg] Diphenox-Atrop 2.5-0.025 mg 1 tab PO 5XD PRN 10/22/18 10/22/18 History [Lomotil] Prochlorperazine [Compazine] 10 mg PO Q6H MDD NAUSEA 10/22/18 10/22/18 History Allergies Allergy/AdvReac Type Severity Reaction Status Date / Time No Known Allergies Allergy Verified 10/22/18 08:41 Physical Exam Vitals: Vital Signs Temp Pulse Resp BP Pulse Ox 10/22/18 12:00 77 16 139/86 97 10/22/18 11:30 76 18 139/86 98 10/22/18 11:00 81 17 134/90 99 10/22/18 10:30 72 18 134/90 97 10/22/18 10:00 78 18 131/96 96 10/22/18 09:30 78 18 131/96 95 10/22/18 08:21 98.2 F 114 H 16 101/78 99 Intake and Output 10/21/18 10/22/18 10/22/18 22:59 06:59 14:59 Other: Weight 77.111 kg General Appearance: Alert, cooperative, no distress, appears stated age. Neck HEENT: Supple, no lymphadenopathy, no thyroid enlargement, no carotid bruits. Lungs: Clear to auscultation without crackles or wheezes no rhonchi, no deformity. Chest Wall: Chest wall normal expansion with deep inspiration no tenderness and no deformity was found on exam, no costochondral pain or discomfort. Heart: Regular rate and rhythm, S1, S2 normal, no murmur, rub or gallop. Back: Symmetric, no curvature, ROM normal, no CVA tenderness. Abdomen: Soft but distended slight tenderness in the mid abdominal region area with no rebound or rigidity. Hyper bowel sound. Extremities: Extremities normal, atraumatic, no cyanosis or edema. Pulses: 2+ and symmetric. Skin: Skin color, texture, tugor normal, no rashes or lesions. Neurologic: Alert oriented x3 cranial nerves II through XII intact, no motor deficit, no abnormal balance or gait. Results CBC & Chem 7: 10/22/18 08:55 10/22/18 08:55 Labs: Abnormal Lab Results - Last 24 Hours (Table) 10/22/18 10/22/18 10/22/18 Range/Units 08:55 08:55 12:17 WBC 3.4 L (3.8-10.6) k/uL Hgb 11.7 L (13.0-17.5) gm/dL Hct 37.2 L (39.0-53.0) % MCV 78.2 L (80.0-100.0) fL MCH 24.7 L (25.0-35.0) pg RDW 18.0 H (11.5-15.5) % Lymphocytes # 0.7 L (1.0-4.8) k/uL Sodium 135 L (137-145) mmol/L Carbon Dioxide 20 L (22-30) mmol/L BUN 24 H (9-20) mg/dL Creatinine 1.30 H (0.66-1.25) mg/dL Glucose 144 H (74-99) mg/dL AST 15 L (17-59) U/L Amylase <30 L (30-110) U/L Lipase 22 L (23-300) U/L Urine Protein 2+ H (Negative) Urine Blood Moderate H (Negative) Urine Bilirubin 1+ H (Negative) Urine RBC 13 H (0-5) /hpf Urine Bacteria Occasional H (None) /hpf Hyaline Casts 33 H (0-2) /lpf Urine Mucus Many H (None) /hpf Thrombosis Risk Factor Assmnt - DVT/VTE Prophylaxis DVT/VTE Prophylaxis: Pharmacologic Prophylaxis ordered, Mechanical Prophylaxis ordered Assessment and Plan Plan: 1 acute abdominal pain: Either small bowel obstruction versus enteritis will continue patient hydration and time medication continue conservative management no NG tube needed this point we'll consult general surgery if continued to have symptom and worsening x-ray might require intervention. 2 acute kidney injury: With more dehydration and pre renal in origin continue hydration repeat testing in the next 24 hours. 3 severe dehydration: Continue to hydrate patient and gradually. 4 colon cancer with metastasis: Has been on chemotherapy seen oncology on regular basis. 5 history of DVT of the right leg has been on out was 2.5 g twice a day continue medication. 6 anemia and leukopenia: Can be combination results from chemotherapy repeat CBC daily. 7 GI prophylaxis and possible gastritis and enteritis: Patient will be on pantoprazole 40 mg daily and Zofran on as needed basis. 8 DVT prophylaxis: Patient has been on treatment for DVT with Eliquis, will hold it for 24 hours if no need for any intervention will continue medication. CODE STATUS: Full code. Admit patient to inpatient status for more than 2 nights.
[2018-10-22] MEDS: SODIUM CHLORIDE 0.9% 1,000 ML IV SCH ×2 (18:16→23:05)
[2018-10-23] MEDS: MORPHINE SULFATE 4 MG/ML SYRINGE IV PRN ×5 (04:39→21:52)
[2018-10-23] MEDS: PANTOPRAZOLE 40 MG/10 ML VIAL IV SCH (08:17)
[2018-10-23] MEDS: SODIUM CHLORIDE 0.9% 1,000 ML IV SCH ×2 (08:17→17:38)
[2018-10-23] MEDS: ONDANSETRON 4 MG/2 ML VIAL IVP PRN ×2 (08:29→17:38)
--- NOTE | 2018-10-23 13:00 | P.GSCN ---
History of Present Illness Consult date: 10/23/18 History of present illness: 57-year-old male with history of metastatic colon cancer presents to the hospital secondary to nausea, vomiting and diarrhea. He is noted to currently be on a chemotherapy regimen and states that his last episode of chemotherapy resulted in a significant amount of nausea and vomiting. He states that he has also developed foul-smelling diarrhea. His bowel history in 2013. At that time, he underwent a colonoscopy and was found to have over 25 polyps throughout the colon. The patient did undergo colectomy at that time and was found to have cancer of the colon. He did not initially receive any chemotherapy after evaluation. 2 years later, he was found to have a intra-abdominal mass that was noted to be metastatic colon cancer. Since that time, he has been on and off chemotherapy. He does follow with Dr. Tariq. He states that he normally has had looser stool and multiple episodes since his colectomy, however recently this has increased and become looser along with more foul-smelling. He states his last episode was approximately an hour and a half prior to my evaluation. He does have a history of C. difficile infection approximately 2 years ago, likely secondary to antibiotic use. He states that he has not currently been on any antibiotics recently. He states that initially he was having nausea and vomiting , however this has subsided. He states that he is hungry. He currently denies any abdominal pain. He has no additional complaints at this time. 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 and that he R kidney hydronephrosis/loss of function because tumor cut off blood supply to that kidney, UTI with sepsis, R leg DVT History of Any Multi-Drug Resistant Organisms: C-DIFF Year Discovered:: 2016 MDRO Source:: Bowel Past Surgical History: Bowel Resection, Cholecystectomy Additional Past Surgical History / Comment(s): Colonectomy, R renal stent at [facility]-other attempts to stent had failed and pt had a ureter perforation, colonoscopies Past Anesthesia/Blood Transfusion Reactions: No Reported Reaction Additional Past Anesthesia/Blood Transfusion Reaction / Comm: Pt has received blood in past without reaction. Smoking Status: Never smoker - Past Family History Brother(s) Family Medical History: Cancer Additional Family Medical History / Comment(s): One brother had leukemia and another brother from SIDS Father Additional Family Medical History / Comment(s): Father from a ruptured brain aneurysm at the age of 87yrs. Mother Family Medical History: Unable to Obtain Additional Family Medical History / Comment(s): Pt states mother is 87yrs old and does not go to the doctors. Medications and Allergies Home Medications Medication Instructions Recorded Confirmed Type Apixaban [Eliquis] 2.5 mg PO BID 01/11/18 10/22/18 History Diphenox-Atrop 2.5-0.025 mg 1 tab PO QID PRN 01/11/18 10/22/18 History [Lomotil] oxyCODONE-APAP 10-325MG [Percocet 1 - 2 tab PO Q6HR PRN 01/11/18 10/22/18 History 10-325 mg] Diphenox-Atrop 2.5-0.025 mg 1 tab PO 5XD PRN 10/22/18 10/22/18 History [Lomotil] Prochlorperazine [Compazine] 10 mg PO Q6H MDD NAUSEA 10/22/18 10/22/18 History Allergies Allergy/AdvReac Type Severity Reaction Status Date / Time No Known Allergies Allergy Verified 10/22/18 08:41 Surgical - Exam Osteopathic Statement: *. No significant issues noted on an osteopathic structural exam other than those noted in the History and Physical/Consult. Vital Signs Temp Pulse Resp BP Pulse Ox 98.2 F 114 H 16 101/78 99 10/22/18 08:21 10/22/18 08:21 10/22/18 08:21 10/22/18 08:21 10/22/18 08:21 - General well developed, no distress - Eyes normal ocular movement - ENT normal mucosa, no hearing loss - Neck trachea midline - Respiratory normal respiratory effort - Abdomen Soft, mild tenderness in left lower quadrant, nondistended, no rebound, no guarding, midline incision healed well - Neurologic normal coordination, normal sensation - Psychiatric oriented to time, oriented to person, oriented to place Results - Labs 10/22/18 08:55 10/22/18 08:55 - Imaging CT scan - abdomen: report reviewed, image reviewed CT scan - pelvis: report reviewed, image reviewed (Distention of loops of bowel is noted) Assessment and Plan (1) Colon cancer Narrative/Plan: 57-year-old male with nausea, vomiting and diarrhea area and admitted review CT of the abdomen and pelvis and there are dilated loops of bowel, however the patient is continually having bowel function that is loose. He is nondistended. At this point, I do believe that he is not obstructed, however may be having excessive diarrhea secondary to chemotherapy or enteritis. I do recommend stool studies to be performed. We can hold off on nasogastric tube decompression at this time. We will begin with a trial of clear liquid diet. Further recommendations to follow. Thank you for this consultation, I look forward to providing this patient's care. Current Visit: Yes Status: Acute Code(s): C18.9 - MALIGNANT NEOPLASM OF COLON, UNSPECIFIED SNOMED Code(s): 714166114
[2018-10-23] MEDS: metroNIDAZOLE-NS PMX 500 MG in SALINE 1 100ML.BAG IVPB SCH ×2 (13:19→20:18)
--- NOTE | 2018-10-23 14:48 | P.PN ---
Subjective Progress Note Date: 10/23/18 57-year-old male of Dr. Russ patient with past medical history of stage III colon cancer has been on chemotherapy has metastasis to the spine. Patient seen Dr. Tariq on regular basis. Has not felt well in the last 4-5 days developed to have generalized weakness fatigue not been able template to walk developed to have significant abdominal pain with nausea and vomiting not able to keep any food or fluid down symptoms become much worse lately patient is normally having diarrhea since his colectomy but lately has been more constipated and no bowel movement last 48 hours. Ended up coming to the emergency apartment at [facility] where was seen and evaluated he was in acute kidney injury with mild leukopenia and mild anemia and mild dehydration. CT of the abdomen showed partial bowel obstruction versus enteritis also had multiple bladder stone. Patient was hospitalized continue hydration no NG tube needed this point we'll consult general surgery and consult oncology continue conservative management next 24 hours if continued to have nausea vomiting and worsening x-ray might require an NG tube with decompression and possible intervention. 10/23: Patient has had liquid stools and specimen will be sent for C. difficile toxin. Patient has history of C. difficile colitis proximal than 2 years ago. He has had incontinence of stool. His abdomen remains a little sore. He is currently nothing by mouth and will advance his diet to clear liquids for lunch. X-rays of the abdomen will be done. Flagyl IV will be added. He also states that he did not sleep well last night due to frequent awakenings.. Patient has been seen by Dr. Lynch and he does not believe patient is obstructed and excessive diarrhea may be secondary to chemotherapy or enteritis. No plans for NG tube. Agrees with clear liquid diet. Review of Systems CONSTITUTIONAL: Well-developed no acute respiratory distress. EYES: No icterus sclerae, no conjunctivitis. EARS, NOSE, MOUTH, THROAT, and FACE: No sore throat, lymphadenopathy, carotid bruits or deformity. RESPIRATORY: No SOB cough or wheezes. CARDIOVASCULAR: No CP, Palpitation, PND, Orthopnea, or angina. GASTROINTESTINAL: Positive abdominal pain, no nausea and vomiting, no distention reports diarrhea. GENITOURINARY: Negative for Hematuria or UTI, no kidney stones. INTEGUMENT/BREAST: Negative for any muscular injury with mild osteoarthritis.. HEMATOLOGIC/LYMPHATIC: Negative for bleed or purpura. MUSCULOSKELTAL: Negative for Myalgia or arthralgia. NEURLOGICAL: No LOC, Sz or syncope, blurred vision dizziness or abnormality.. BEHAVIORAL/PSYCH: Negative. ENDOCRINE: Negative. Objective - Vital Signs Vital signs: Vital Signs Temp 99.7 F H 10/23/18 07:22 Pulse 79 10/23/18 07:22 Resp 16 10/23/18 07:22 BP 127/83 10/23/18 07:22 Pulse Ox 99 10/23/18 07:22 Intake & Output 10/22/18 10/23/18 10/23/18 18:59 06:59 18:59 Intake Total 1020 Balance 1020 Weight 77.111 kg Intake: Intake, IV Titration 1000 Amount Sodium Chloride 0.9% 1, 1000 000 ml @ 100 mls/hr IV . Q10H MOON Rx#:[id number] Oral 20 Other: Voiding Method Toilet # Voids 3 # Bowel Movements 1 - Exam General Appearance: Alert, cooperative, no distress, appears stated age. Neck HEENT: Supple, no lymphadenopathy, no thyroid enlargement, no carotid b ruits. Lungs: Clear to auscultation without crackles or wheezes no rhonchi, no deformity. Chest Wall: Chest wall normal expansion with deep inspiration no tenderness and no deformity was found on exam, no costochondral pain or discomfort. Heart: Regular rate and rhythm, S1, S2 normal, no murmur, rub or gallop. Back: Symmetric, no curvature, ROM normal, no CVA tenderness. Abdomen: Soft slight tenderness in the mid abdominal region area with no rebound or rigidity. Hyper bowel sound. Extremities: Extremities normal, atraumatic, no cyanosis or edema. Pulses: 2+ and symmetric. Skin: Skin color, texture, tugor normal, no rashes or lesions. Neurologic: Alert oriented x3 cranial nerves II through XII intact, no motor deficit, no abnormal balance or gait. - Labs CBC & Chem 7: 10/22/18 08:55 10/22/18 08:55 Labs: Abnormal Lab Results - Last 24 Hours (Table) 10/22/18 10/22/18 10/22/18 Range/Units 08:55 08:55 12:17 WBC 3.4 L (3.8-10.6) k/uL Hgb 11.7 L (13.0-17.5) gm/dL Hct 37.2 L (39.0-53.0) % MCV 78.2 L (80.0-100.0) fL MCH 24.7 L (25.0-35.0) pg RDW 18.0 H (11.5-15.5) % Lymphocytes # 0.7 L (1.0-4.8) k/uL Sodium 135 L (137-145) mmol/L Carbon Dioxide 20 L (22-30) mmol/L BUN 24 H (9-20) mg/dL Creatinine 1.30 H (0.66-1.25) mg/dL Glucose 144 H (74-99) mg/dL AST 15 L (17-59) U/L Amylase <30 L (30-110) U/L Lipase 22 L (23-300) U/L Urine Protein 2+ H (Negative) Urine Blood Moderate H (Negative) Urine Bilirubin 1+ H (Negative) Urine RBC 13 H (0-5) /hpf Urine Bacteria Occasional H (None) /hpf Hyaline Casts 33 H (0-2) /lpf Urine Mucus Many H (None) /hpf Assessment and Plan Plan: 1 acute abdominal pain and diarrhea most likely secondary to chemotherapy or enteritis. Stool studies in progress. Consult with Dr. Syed grace. Continue IV fluids, Flagyl has been added. 2 acute kidney injury: With more dehydration and pre renal in origin continue hydration repeat testing in the next 24 hours. 3 severe dehydration: Continue to hydrate patient and gradually. 4 colon cancer with metastasis: Has been on chemotherapy seen oncology on regular basis. 5 history of DVT of the right leg has been on out was 2.5 g twice a day continue medication. 6 anemia and leukopenia: Can be combination results from chemotherapy repeat CBC daily. 7 GI prophylaxis and possible gastritis and enteritis: Patient will be on pantoprazole 40 mg daily and Zofran on as needed basis. 8 DVT prophylaxis: Patient has been on treatment for DVT with Eliquis. CODE STATUS: Full code. Discharge plan: Return home Impression and plan of care have been directed as dictated by the signing physician. Brea Garcia nurse practitioner acting as scribe for signing physician.
--- NOTE | 2018-10-23 19:29 | XR ---
EXAMINATION TYPE: XR abdomen 2V DATE OF EXAM: 10/23/2018 COMPARISON: NONE HISTORY: Abdominal pain and diarrhea TECHNIQUE: 3 views supine and upright FINDINGS: There are multiple air-filled loops of bowel without disproportionate enlargement of any 1 level. There is air down to the rectum. I see no sign of free air. Lung bases are clear. There are no pathologic calcifications over the kidneys. IMPRESSION: Distended gas-filled loops of large and small bowel consistent with intestinal ileus. No free air.
[2018-10-23] MEDS: APIXABAN 2.5 MG TABLET PO SCH (20:22)
--- NOTE | 2018-10-23 23:58 | P.CONS ---
History of Present Illness - Reason for Consult Consult date: 10/23/18 SBO, metastatic colon cancer - History of Present Illness Mr aCnales is a 57 yr old WM, who had his 1st screening colonoscopy in 2013. He was found to have an ulcerated mass in the sigmoid, and multiple polyps. The biopsy of the sigmoid mass was positive for malignancy. CT scan of the A/P on 09/21/13 was negative for any metastases. He underwent subtotal colectomy with ileo-rectal anastomosis on 10/08/13. The surgical pathology revealed a an invasive poorly differentiated adenocarcinoma, arising in an adenomatous polyp, T2, with 0 /23 nodes involved. Multiple other adenomatous polyps ( 15) were noted. Genetic testing for FAP and Betancourt syndormes was ordered, but could not be done for insurance reason. Colonoscopy on 05/12/2015 revealed tibular adenoma in the rectum which was removed. He did well until around when he presented with pain and swelling of RLE,initial venous doppler was negative for DVT,he was treated for cellulitis without improvement,he had repeat doppler at Dr Munoz office was was positive for DVT,also he had a CT scan of abdomen/pelvis on 02/22/2016 which revealed 9.4x5.5cm mass in righ pelvis causing significant hydronephrosis.Cystoscopy and ureteral stent placement was attempted but stent could not be placed.He was started on eliquis. On 02/25/2016,CEA was 256.4,creatinine 1.34,CBC unremarkable. On 02/27/2016,FNA of the pelvic mass was positive for adenocarcinoma consistent with colon primary. On 03/09/2016,PET scan revealed very large right pelvic mass,invading the sacrum ,multiple lung lesions and hilar nodes. He had right nephrostomy tube placed at [facility] 03/11/2016 he was also evaluated by oncology at [facility] on 03/14/2016 and recommended systemic therapy first. His tumor is LILIBETH. BRAF was negative.KRAS and NRAS were negative ,genetic testing for Betancourt syndrome were negative. 04/08/2016,he started mFOLFOX6.On 06/24/2016,repeat PEt scan revealed significant improvement in the pelvic mass and healing effects in plevic bone. He completed 10 cycles of mFOLFOX on 08/20/2016,which he tolerated well. Repeat PET scan on 09/08/2016 revealed disease progression in his pelvis. He started avastin/FOLFIRI on 09/25/2016. On 12/01/2016,repeat PET scan revealed stable disease.(reviewed with radiologist ). He completed 11 cycles of FOLFIRI/Avastin on 02/26/2017 (he declined the last cycle). He started maintenance xeloda/avastin on 04/15/2017 He had avastin and started xeloda on 05/27/2017,however,he ended up with bleeding in his kidney and retroperitoneal hemorrhage,he was admitted to [facility]. He was discharged from [facility] on 06/28/2017. Repeat PET scan on 08/03/2017 revealed possible progression of his disease in pelvis,chronic right hydronephrosis. He was off xeloda/avastin since 05/27/2017 due to retroperitoeal bleed which resolved,resumed treatment on 06/30/2017. The treatment was held again on 12/30/2017 due to recurrent pyelonephritis. Repeat PET scan on 02/07/2018 revealed stable disease and he decided to take a break from therapy until disease progression. On 07/25/2018,repeat PET scan revealed evidence of disease progression On 09/02/2018,he started avastin/FOLFIRI At his last OV on 09/23/18 he reported feeling better, especially re the pain in right legs (due to pelvic recurrence of disease),tolerating treatment well, with chronic diarrhea,mild nausea, tolerating eliquis well. His most recent chemo was on 10/14/18 He presented with increased abdominal pain, n/v over the past 3-4 days. Symptoms had progressed over the past 2 days, with increased n/v, and inability to keep anything down. He had not had a BM in the past 2 days. He was feeling progressively weaker. He therefore came in to the ER, with CT AP showing possible SBO vs enteritis. He was dehydrated with labs showing ANDREW. He was thus admitted for further management. On my evaluation, the patient stated that he had actually been having diarrhea on a regular basis. To me, he stated that he had had some nausea, and vomiting was not very prominent, within mostly experiencing gagging. Review of Systems Constitutional: Reports anorexia, Reports chronic pain, Reports fatigue, Reports weakness Eyes: denies blurred vision, denies pain Ears: deny: decreased hearing, ear discharge, earache, tinnitus Ears, nose, mouth and throat: Denies headache, Denies sore throat Cardiovascular: Reports decreased exercise tolerance Respiratory: Denies cough Gastrointestinal: Reports abdominal pain, Reports diarrhea, Reports nausea, Reports vomiting Genitourinary: Reports as per HPI Musculoskeletal: Reports muscle weakness Integumentary: Denies pruritus, Denies rash Neurological: Reports weakness Psychiatric: Denies anxiety, Denies depression Endocrine: Reports fatigue Hematologic/Lymphatic: Reports as per HPI 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 and that he R kidney hydronephrosis/loss of function because tumor cut off blood supply to that kidney, UTI with sepsis, R leg DVT History of Any Multi-Drug Resistant Organisms: C-DIFF Year Discovered:: 2016 MDRO Source:: Bowel Past Surgical History: Bowel Resection, Cholecystectomy Additional Past Surgical History / Comment(s): Colonectomy, R renal stent at [facility]-other attempts to stent had failed and pt had a ureter perforation, colonoscopies Past Anesthesia/Blood Transfusion Reactions: No Reported Reaction Additional Past Anesthesia/Blood Transfusion Reaction / Comm: Pt has received blood in past without reaction. Smoking Status: Never smoker - Past Family History Brother(s) Family Medical History: Cancer Additional Family Medical History / Comment(s): One brother had leukemia and another brother from SIDS Father Additional Family Medical History / Comment(s): Father from a ruptured brain aneurysm at the age of 87yrs. Mother Family Medical History: Unable to Obtain Additional Family Medical History / Comment(s): Pt states mother is 87yrs old and does not go to the doctors. Medications and Allergies Home Medications Medication Instructions Recorded Confirmed Type Apixaban [Eliquis] 2.5 mg PO BID 01/11/18 10/22/18 History Diphenox-Atrop 2.5-0.025 mg 1 tab PO QID PRN 01/11/18 10/22/18 History [Lomotil] oxyCODONE-APAP 10-325MG [Percocet 1 - 2 tab PO Q6HR PRN 01/11/18 10/22/18 History 10-325 mg] Diphenox-Atrop 2.5-0.025 mg 1 tab PO 5XD PRN 10/22/18 10/22/18 History [Lomotil] Prochlorperazine [Compazine] 10 mg PO Q6H MDD NAUSEA 10/22/18 10/22/18 History Allergies Allergy/AdvReac Type Severity Reaction Status Date / Time No Known Allergies Allergy Verified 10/22/18 08:41 Physical Exam Vitals: Vital Signs Temp Pulse Pulse Resp BP BP Pulse Ox 10/23/18 07:22 99.7 F H 79 16 127/83 99 10/22/18 23:42 81 18 10/22/18 21:00 98.0 F 81 18 132/85 98 10/22/18 17:02 98.1 F 94 16 147/89 99 10/22/18 15:06 97.6 F 82 16 121/76 98 10/22/18 12:00 77 16 139/86 97 10/22/18 11:30 76 18 139/86 98 10/22/18 11:00 81 17 134/90 99 10/22/18 10:30 72 18 134/90 97 10/22/18 10:00 78 18 131/96 96 10/22/18 09:30 78 18 131/96 95 Intake and Output 10/22/18 10/23/18 10/23/18 22:59 06:59 14:59 Intake Total 400 620 Balance 400 620 Intake: Intake, IV Titration 400 600 Amount Sodium Chloride 0.9% 1, 400 600 000 ml @ 100 mls/hr IV . Q10H MOON Rx#:[id number] Oral 0 20 Other: Voiding Method Toilet # Voids 1 3 # Bowel Movements 1 1 - Constitutional General appearance: no acute distress - EENT Eyes: EOMI, PERRLA ENT: hearing grossly normal, normal oropharynx - Neck Neck: no lymphadenopathy Thyroid: bilateral: normal size - Respiratory Respiratory: bilateral: CTA - Cardiovascular Rhythm: regular Heart sounds: normal: S1, S2 - Gastrointestinal General gastrointestinal: decreased bowel sounds, soft - Integumentary Integumentary: normal - Neurologic Neurologic: CNII-XII intact - Musculoskeletal Musculoskeletal: generalized weakness, strength equal bilaterally - Psychiatric Psychiatric: A&O x's 3, appropriate affect Results CBC & Chem 7: 10/22/18 08:55 10/22/18 08:55 Labs: Abnormal Lab Results - Last 24 Hours (Table) 10/22/18 10/22/18 10/22/18 Range/Units 08:55 08:55 12:17 WBC 3.4 L (3.8-10.6) k/uL Hgb 11.7 L (13.0-17.5) gm/dL Hct 37.2 L (39.0-53.0) % MCV 78.2 L (80.0-100.0) fL MCH 24.7 L (25.0-35.0) pg RDW 18.0 H (11.5-15.5) % Lymphocytes # 0.7 L (1.0-4.8) k/uL Sodium 135 L (137-145) mmol/L Carbon Dioxide 20 L (22-30) mmol/L BUN 24 H (9-20) mg/dL Creatinine 1.30 H (0.66-1.25) mg/dL Glucose 144 H (74-99) mg/dL AST 15 L (17-59) U/L Amylase <30 L (30-110) U/L Lipase 22 L (23-300) U/L Urine Protein 2+ H (Negative) Urine Blood Moderate H (Negative) Urine Bilirubin 1+ H (Negative) Urine RBC 13 H (0-5) /hpf Urine Bacteria Occasional H (None) /hpf Hyaline Casts 33 H (0-2) /lpf Urine Mucus Many H (None) /hpf Abdominal x-ray: report reviewed CT scan - pelvis: report reviewed US - abdomen: report reviewed Assessment and Plan (1) Partial small bowel obstruction Narrative/Plan: At this time the pt's abdomen is not distended. He has been able to have BMs inpt , and pass gas. He was seen by Surgery and is not felt to be obstructed - Possible infectious or chemo related enteritis, causing an ileus are thus in the differential - Continue IV hydration, and supportive care - Monitor with serial xrays - Advance diet per surgery. - Stool for C diff is negative Current Visit: Yes Status: Acute Code(s): K56.600 - PARTIAL INTESTINAL OBSTRUCTION, UNSPECIFIED TO CAUSE SNOMED Code(s): 459059820 (2) Colon cancer Narrative/Plan: Diagnostic and therapeutic circumstances as described. Based on initial Ct report and concern for obstruction, there was a possibility of progression. As true mechanical obstruction is less likely, this is less of a possibility. Check CEA. Continue chemo as outpt , if satisfactory, and acute condition resolves sufficiently Current Visit: Yes Status: Acute Code(s): C18.9 - MALIGNANT NEOPLASM OF COLON, UNSPECIFIED SNOMED Code(s): 204539580 (3) Dehydration Narrative/Plan: Improved with IV hydration. Diet being advanced Current Visit: Yes Status: Acute Code(s): E86.0 - DEHYDRATION SNOMED Code( s): 83303861 (4) Bicytopenia Narrative/Plan: Chemo induced. All counts are katelyn safe range. Continue to monitor and transfuse if needed Current Visit: Yes Status: Acute Code(s): D75.89 - OTHER SPECIFIED DISEASES OF BLOOD AND BLOOD-FORMING ORGANS SNOMED Code(s): 754904081
[2018-10-24] MEDS: MORPHINE SULFATE 4 MG/ML SYRINGE IV PRN ×6 (01:33→22:16)
[2018-10-24] MEDS: ONDANSETRON 4 MG/2 ML VIAL IVP PRN ×3 (01:33→18:09)
[2018-10-24] MEDS: metroNIDAZOLE-NS PMX 500 MG in SALINE 1 100ML.BAG IVPB SCH ×3 (04:05→19:27)
[2018-10-24] MEDS: SODIUM CHLORIDE 0.9% 1,000 ML IV SCH (04:06)
[2018-10-24] MEDS: oxyCODONE-APAP 10-325MG 1 EACH TAB PO PRN (04:36)
[2018-10-24 07:51] LABS: Albumin 2.9 g/dL (3.5-5.0); Calcium 7.9 mg/dL (8.4-10.2); Potassium 3.8 mmol/L (3.5-5.1); Total Bilirubin 0.6 mg/dL (0.2-1.3); Total Protein 5.9 g/dL (6.3-8.2)
[2018-10-24 08:20] LABS: Anisocytosis Slight; HCT 28.6 % (39.0-53.0); Hypochromasia Marked; MCH 25.1 pg (25.0-35.0); MCHC 31.6 g/dL (31.0-37.0); MCV 79.5 fL (80.0-100.0); Mean Platelet Volume 6.8; Microcytosis Slight; Platelet Count 153 k/uL (150-450); RBC 3.59 m/uL (4.30-5.90); RDW 17.8 % (11.5-15.5)
[2018-10-24 08:29] LABS: WBC 1.3 k/uL (3.8-10.6)
[2018-10-24] MEDS: APIXABAN 2.5 MG TABLET PO SCH ×2 (08:59→22:17)
[2018-10-24] MEDS: PANTOPRAZOLE 40 MG/10 ML VIAL IV SCH (08:59)
--- NOTE | 2018-10-24 10:46 | P.PN ---
Subjective Progress Note Date: 10/24/18 Patient seen and examined at bedside. He is resting comfortably. He did state after beginning clear liquid diet yesterday he did have an episode of emesis. He states he is tolerating clear liquids today. He continues to have diarrhea. C. diff study was negative. Objective - Vital Signs Vital signs: Vital Signs Temp 99.5 F 10/24/18 05:00 Pulse 87 10/24/18 05:00 Resp 16 10/24/18 05:00 BP 136/80 10/24/18 05:00 Pulse Ox 98 10/24/18 05:00 Intake & Output 10/23/18 10/24/18 10/24/18 18:59 06:59 18:59 Intake Total 2120 Output Total 100 Balance 2019 Weight 77.111 kg Intake: Intake, IV Titration 1400 Amount Sodium Chloride 0.9% 1, 1200 000 ml @ 100 mls/hr IV . Q10H MOON Rx#:[id number] metroNIDAZOLE-NS PMX 500 200 mg In Saline 1 100ml.bag @ 100 mls/hr IVPB Q8H MOON Rx#:[id number] Oral 720 Output: Emesis 100 Other: Voiding Method Toilet # Voids 2 3 # Bowel Movements 3 - Constitutional General appearance: Present: cooperative, no acute distress - EENT ENT: Present: hearing grossly normal - Neck Neck: Present: normal ROM - Respiratory Details: No difficulty with respiration - Gastrointestinal Gastrointestinal Comment(s): Soft, nontender, nondistended, no rebound, no guarding - Musculoskeletal Musculoskeletal: Present: generalized weakness - Psychiatric Psychiatric: Present: A&O x's 3 - Labs CBC & Chem 7: 10/24/18 06:47 10/24/18 06:47 Labs: Abnormal Lab Results - Last 24 Hours (Table) 10/23/18 10/24/18 10/24/18 Range/Units 18:45 06:47 06:47 WBC 1.3 L* (3.8-10.6) k/uL RBC 3.59 L (4.30-5.90) m/uL Hgb 9.0 L D (13.0-17.5) gm/dL Hct 28.6 L (39.0-53.0) % MCV 79.5 L (80.0-100.0) fL RDW 17.8 H (11.5-15.5) % Chloride 111 H (98-107) mmol/L Carbon Dioxide 18 L (22-30) mmol/L Glucose 114 H (74-99) mg/dL Calcium 7.9 L (8.4-10.2) mg/dL AST 13 L (17-59) U/L Total Protein 5.9 L (6.3-8.2) g/dL Albumin 2.9 L (3.5-5.0) g/dL Stool Lactoferrin POSITIVE H (NEGATIVE) Microbiology - Last 24 Hours (Table) 10/23/18 18:45 Stool Culture - Preliminary Stool Assessment and Plan (1) Colon cancer Narrative/Plan: 57-year-old male with nausea, vomiting and diarrhea - X-ray reviewed that does illustrate an ileus. This is likely secondary to an enteritis episode versus reaction to chemotherapy. - Continue with clear liquid diet due to patient's emesis episode yesterday - C. diff study was negative - Progressing slowly Current Visit: Yes Status: Acute Code(s): C18.9 - MALIGNANT NEOPLASM OF COLON, UNSPECIFIED SNOMED Code(s): 861421782
[2018-10-24 10:55] LABS: Neutrophils % (M) 31 %
--- NOTE | 2018-10-24 10:59 | P.PN ---
Subjective Progress Note Date: 10/24/18 57-year-old male of Dr. Russ patient with past medical history of stage III colon cancer has been on chemotherapy has metastasis to the spine. Patient seen Dr. Tariq on regular basis. Has not felt well in the last 4-5 days developed to have generalized weakness fatigue not been able template to walk developed to have significant abdominal pain with nausea and vomiting not able to keep any food or fluid down symptoms become much worse lately patient is normally having diarrhea since his colectomy but lately has been more constipated and no bowel movement last 48 hours. Ended up coming to the emergency apartment at [facility] where was seen and evaluated he was in acute kidney injury with mild leukopenia and mild anemia and mild dehydration. CT of the abdomen showed partial bowel obstruction versus enteritis also had multiple bladder stone. Patient was hospitalized continue hydration no NG tube needed this point we'll consult general surgery and consult oncology continue conservative management next 24 hours if continued to have nausea vomiting and worsening x-ray might require an NG tube with decompression and possible intervention. 3/1: Patient has had liquid stools and specimen will be sent for C. difficile toxin. Patient has history of C. difficile colitis proximal than 2 years ago. He has had incontinence of stool. His abdomen remains a little sore. He is currently nothing by mouth and will advance his diet to clear liquids for lunch. X-rays of the abdomen will be done. Flagyl IV will be added. He also states that he did not sleep well last night due to frequent awakenings.. Patient has been seen by Dr. Lynch and he does not believe patient is obstructed and excessive diarrhea may be secondary to chemotherapy or enteritis. No plans for NG tube. Agrees with clear liquid diet. 3/2: The patient is continuing to have frequent watery stools. He is on a clear liquid diet and had one episode of emesis yesterday. Nausea has resolved this morning. He complains of generalized abdominal pain, no cramps. C. difficile toxin came back negative. Plan to continue clear liquid diet today. Abdominal x-ray from yesterday did show distended gas filled loops of large and small bowel consistent with intestinal ileus. No free air. White count has dropped to 1.3, hemoglobin 9.0, platelet count 153. Sodium 138, potassium 3.8, chloride 111 and CO2 18 down from 20 of yesterday. Creatinine 1.19. Stool for lactoferrin was in positive. Stool culture in progress. IV fluids will be changed to D5 0.9 and 100 mL/h due to acidosis. Patient is followed by general surgery, Dr. Lynch and Dr. Odonnell from oncology. CEA ordered. Patient is plan for chemotherapy as an outpatient once this condition resolves. Review of Systems CONSTITUTIONAL: Well-developed no acute respiratory distress. EYES: No icterus sclerae, no conjunctivitis. EARS, NOSE, MOUTH, THROAT, and FACE: No sore throat, lymphadenopathy, carotid bruits or deformity. RESPIRATORY: No SOB cough or wheezes. CARDIOVASCULAR: No CP, Palpitation, PND, Orthopnea, or angina. GASTROINTESTINAL: Positive abdominal pain, no nausea and vomiting, no distention reports diarrhea. GENITOURINARY: Negative for Hematuria or UTI, no kidney stones. INTEGUMENT/BREAST: Negative for any muscular injury with mild osteoarthritis.. HEMATOLOGIC/LYMPHATIC: Negative for bleed or purpura. MUSCULOSKELTAL: Negative for Myalgia or arthralgia. NEURLOGICAL: No LOC, Sz or syncope, blurred vision dizziness or abnormality.. BEHAVIORAL/PSYCH: Negative. ENDOCRINE: Negative. Objective - Vital Signs Vital signs: Vital Signs Temp 99.5 F 10/24/18 05:00 Pulse 87 10/24/18 05:00 Resp 16 10/24/18 05:00 BP 136/80 10/24/18 05:00 Pulse Ox 98 10/24/18 05:00 Intake & Output 10/23/18 10/24/18 10/24/18 18:59 06:59 18:59 Intake Total 2120 Output Total 100 Balance 2019 Weight 77.111 kg Intake: Intake, IV Titration 1400 Amount Sodium Chloride 0.9% 1, 1200 000 ml @ 100 mls/hr IV . Q10H [facility] Rx#:[id number] metroNIDAZOLE-NS PMX 500 200 mg In Saline 1 100ml.bag @ 100 mls/hr IVPB Q8H [facility] Rx#:[id number] Oral 720 Output: Emesis 100 Other: Voiding Method Toilet # Voids 2 3 # Bowel Movements 3 - Exam General Appearance: Alert, cooperative, no distress, appears stated age. Patient is resting in bed. Neck HEENT: Supple, no lymphadenopathy, no thyroid enlargement, no carotid bruits. Lungs: Clear to auscultation without crackles or wheezes no rhonchi, no deformity. Chest Wall: Chest wall normal expansion with deep inspiration no tenderness and no deformity was found on exam, no costochondral pain or discomfort. Heart: Regular rate and rhythm, S1, S2 normal, no murmur, rub or gallop. Back: Symmetric, no curvature, ROM normal, no CVA tenderness. Abdomen: Soft slight tenderness in the mid abdominal region area with no rebound or rigidity. Hyper bowel sound. Extremities: Extremities normal, atraumatic, no cyanosis or edema. Pulses: 2+ and symmetric. Skin: Skin color, texture, tugor normal, no rashes or lesions. Neurologic: Alert oriented x3 cranial nerves II through XII intact, no motor deficit, no abnormal balance or gait. - Labs CBC & Chem 7: 10/24/18 06:47 10/24/18 06:47 Labs: Abnormal Lab Results - Last 24 Hours (Table) 10/23/18 10/24/18 Range/Units 18:45 06:47 Chloride 111 H (98-107) mmol/L Carbon Dioxide 18 L (22-30) mmol/L Glucose 114 H (74-99) mg/dL Calcium 7.9 L (8.4-10.2) mg/dL AST 13 L (17-59) U/L Total Protein 5.9 L (6.3-8.2) g/dL Albumin 2.9 L (3.5-5.0) g/dL Stool Lactoferrin POSITIVE H (NEGATIVE) Microbiology - Last 24 Hours (Table) 10/23/18 18:45 Stool Culture - Preliminary Stool Assessment and Plan Plan: 1 acute abdominal pain and diarrhea most likely secondary to chemotherapy or enteritis, ileus. Stool studies in progress. Consult with Dr. Lynch appreciated. Continue IV fluids, Flagyl has been added. Continue clear liquid diet. 2 acute kidney injury with dehydration secondary to profuse diarrhea. IV fluids changed to D5 0.9. 3 metabolic acidosis secondary to diarrhea. IV fluids changed to D5 0.9 normal saline at 100 mL per hour. 4 colon cancer with metastasis: Has been on chemotherapy seen oncology on regular basis. Consult with Dr. Odonnell appreciated. 5 history of DVT of the right leg. Continue eliquis 2.5 mg twice daily 6 anemia and leukopenia: Can be combination results from chemotherapy repeat CBC daily. 7 GI prophylaxis and possible gastritis and enteritis: Patient will be on pantoprazole 40 mg daily and Zofran on as needed basis. 8 DVT prophylaxis: Patient has been on treatment for DVT with Eliquis. CODE STATUS: Full code. Discharge plan: Return home Impression and plan of care have been directed as dictated by the signing physician. Brea Garcia nurse practitioner acting as scribe for signing physician.
[2018-10-24 11:07] LABS: Band Neutrophils % 10 %; Eosinophils # (M) 0.03 k/uL (0-0.7); Lymphocytes # (M) 0.42 k/uL (1.0-4.8); Monocytes # (M) 0.33 k/uL (0-1.0); Nucleated Red Blood Cells 0 /100 WBC (0-0); Total Cells Counted 100
[2018-10-24] MEDS: DEXTROSE 5%-0.9% NACL 1,000 ML IV SCH ×2 (11:12→20:16)
--- NOTE | 2018-10-24 13:45 | PN ---
PROGRESS NOTE DATE OF SERVICE: 10/24/2018 CHIEF COMPLAINT: Diarrhea. I saw this today in followup. He continues to have watery diarrhea. He has some nausea but has not thrown up this morning. He is tolerating liquid diet fairly well. He is overall very tired and weak. No fever or chills. No melena, hematochezia, hematuria or hemoptysis. CURRENT MEDICATIONS: Reviewed in his electronic medical record. PHYSICAL EXAMINATION: He is alert, oriented x3. He does not appear to be in distress at this time. VITAL SIGNS: Temperature 97.8. His temperature max 2 days ago was 99.9. Pulse 69 and regular, respirations 16, blood pressure 135/75. HEENT: Normocephalic, atraumatic. No obvious icterus. NECK: Supple. No jugular venous distention. CHEST: Equal expansion bilaterally. LUNGS: Clear to auscultation. ABDOMEN: Soft. Bowel sounds present. He has tenderness in the left lower quadrant. Extremities revealed trace edema. SKIN: No significant bruise, ecchymosis, petechiae. LYMPHATICS: No peripherally enlarged cervical or supraclavicular nodes. LABORATORY DATA: WBC of 1.3, hemoglobin 9.0, hematocrit 28.6, MCV 79.5, platelets 153. Sodium 138, potassium 3.8, chloride 111, CO2 18. BUN is 17, creatinine 1.19. AST 13, ALT 24, alkaline phosphatase 107. IMPRESSION: 1. Metastatic colon carcinoma. The patient has failed multiple lines of therapies. He currently was started on FOLFIRI /Avastin regimen. 2. Ongoing diarrhea. This is likely secondary to FOLFIRI regimen. The recent radiographic finding revealed dilated small bowel loops. This is a chronic finding. He has had similar imaging in the past over the last few years with similar appearance of chronically dilated small bowel loops. 3. Neutropenia without any fever and no clinical evidence of infection. This is related to recent chemotherapy as well. 4. Previous history of deep venous thrombosis. RECOMMENDATIONS: 1. Continue IV hydration. 2. Since his stool is negative for C difficile and his diarrhea is felt likely to be secondary to chemotherapy, we will start the patient on antidiarrheal medication regimen. 3. Monitor blood counts very closely. 4. May continue empiric Flagyl as previously ordered. 5. Continue also current antiemetics. The above plan was discussed with the patient and I answered all of his questions. Thank you very much. CHIARA / GAGANDEEP: [id number] /
[2018-10-24] MEDS: DIPHENOX-ATROP 2.5-0.025 MG 1 EACH TAB PO PRN (14:24)
[2018-10-24] MEDS: LOPERAMIDE 2 MG CAP PO SCH ×2 (18:09→22:17)
[2018-10-25] MEDS: ONDANSETRON 4 MG/2 ML VIAL IVP PRN ×3 (02:36→23:32)
[2018-10-25] MEDS: MORPHINE SULFATE 4 MG/ML SYRINGE IV PRN ×6 (02:36→23:31)
[2018-10-25] MEDS: metroNIDAZOLE-NS PMX 500 MG in SALINE 1 100ML.BAG IVPB SCH ×3 (04:15→19:53)
[2018-10-25] MEDS: DEXTROSE 5%-0.9% NACL 1,000 ML IV SCH (05:31)
--- NOTE | 2018-10-25 08:21 | P.PN ---
Subjective Progress Note Date: 10/25/18 Patient seen and examined at bedside. States that he continues to have loose stool, however the foul smell has resolved. He is also having a lot of flatus. He states that overnight, he had multiple emesis episodes that appear bilious. Objective - Vital Signs Vital signs: Vital Signs Temp 97.8 F 10/25/18 05:00 Pulse 63 10/25/18 05:00 Resp 16 10/25/18 05:00 BP 119/82 10/25/18 05:00 Pulse Ox 99 10/25/18 05:00 Intake & Output 10/24/18 10/25/18 10/25/18 18:59 06:59 18:59 Intake Total 800 1660 Output Total 550 Balance 800 1110 Intake: Intake, IV Titration 800 1300 Amount Dextrose 5%-0.9% NaCl 1, 800 1200 000 ml @ 100 mls/hr IV . Q10H [facility] Rx#:[id number] metroNIDAZOLE-NS PMX 500 100 mg In Saline 1 100ml.bag @ 100 mls/hr IVPB Q8H [facility] Rx#:[id number] Oral 360 Output: Emesis 550 Other: Voiding Method Diaper Incontinent # Voids 1 # Bowel Movements 1 1 - Constitutional General appearance: Present: cooperative - EENT Eyes: Present: PERRLA - Respiratory Details: No difficulty with respiration - Gastrointestinal Gastrointestinal Comment(s): Soft, mild distention, nontender, no rebound, no guarding - Psychiatric Psychiatric: Present: A&O x's 3 - Labs CBC & Chem 7: 10/24/18 06:47 10/24/18 06:47 Labs: Abnormal Lab Results - Last 24 Hours (Table) 10/24/18 Range/Units 06:47 WBC 1.3 L* (3.8-10.6) k/uL RBC 3.59 L (4.30-5.90) m/uL Hgb 9.0 L D (13.0-17.5) gm/dL Hct 28.6 L (39.0-53.0) % MCV 79.5 L (80.0-100.0) fL RDW 17.8 H (11.5-15.5) % Neutrophils # (Manual) 0.50 L (1.3-7.7) k/uL Lymphocytes # (Manual) 0.42 L (1.0-4.8) k/uL Assessment and Plan (1) Colon cancer Narrative/Plan: 57-year-old male with continued ileus - X-ray reviewed that does illustrate an ileus. This is likely secondary to an enteritis episode versus reaction to chemotherapy. - Continue with clear liquid diet as tolerated by patient - C. diff study was negative, lactoferrin was positive, continue Flagyl - Due to continued nausea and emesis episodes, apply scopolamine patch - Continue IV fluid resuscitation due to emesis episodes Current Visit: Yes Status: Acute Code(s): C18.9 - MALIGNANT NEOPLASM OF COLON, UNSPECIFIED SNOMED Code(s): 912161020
[2018-10-25] MEDS: APIXABAN 2.5 MG TABLET PO SCH ×2 (09:02→20:35)
[2018-10-25] MEDS: PANTOPRAZOLE 40 MG/10 ML VIAL IV SCH (09:02)
[2018-10-25] MEDS: LOPERAMIDE 2 MG CAP PO SCH ×4 (09:02→22:10)
[2018-10-25] MEDS: SCOPOLAMINE 1.5MG/72HR PATCH TRANSDERM SCH (09:03)
[2018-10-25 09:07] LABS: Anisocytosis Slight; HCT 30.7 % (39.0-53.0); HGB 9.3 gm/dL (13.0-17.5); Hypochromasia Marked; MCHC 30.4 g/dL (31.0-37.0); Mean Platelet Volume 7.8; Microcytosis Slight; Platelet Count 198 k/uL (150-450); RBC 3.88 m/uL (4.30-5.90); RDW 17.7 % (11.5-15.5); WBC 2.6 k/uL (3.8-10.6)
[2018-10-25 09:15] LABS: Albumin 2.7 g/dL (3.5-5.0); Calcium 8.3 mg/dL (8.4-10.2); Potassium 3.4 mmol/L (3.5-5.1); Total Bilirubin 0.4 mg/dL (0.2-1.3); Total Protein 5.9 g/dL (6.3-8.2)
[2018-10-25] MEDS ORDERED: POTASSIUM CHLORIDE 20 MEQ in WATER FOR INJECTION 1 100ML.BAG IVPB STA (10:39)
--- NOTE | 2018-10-25 11:23 | P.PN ---
Subjective Progress Note Date: 10/25/18 57-year-old male of Dr. Russ patient with past medical history of stage III colon cancer has been on chemotherapy has metastasis to the spine. Patient seen Dr. Tariq on regular basis. Has not felt well in the last 4-5 days developed to have generalized weakness fatigue not been able template to walk developed to have significant abdominal pain with nausea and vomiting not able to keep any food or fluid down symptoms become much worse lately patient is normally having diarrhea since his colectomy but lately has been more constipated and no bowel movement last 48 hours. Ended up coming to the emergency apartment at [facility] where was seen and evaluated he was in acute kidney injury with mild leukopenia and mild anemia and mild dehydration. CT of the abdomen showed partial bowel obstruction versus enteritis also had multiple bladder stone. Patient was hospitalized continue hydration no NG tube needed this point we'll consult general surgery and consult oncology continue conservative management next 24 hours if continued to have nausea vomiting and worsening x-ray might require an NG tube with decompression and possible intervention. 3/1: Patient has had liquid stools and specimen will be sent for C. difficile toxin. Patient has history of C. difficile colitis proximal than 2 years ago. He has had incontinence of stool. His abdomen remains a little sore. He is currently nothing by mouth and will advance his diet to clear liquids for lunch. X-rays of the abdomen will be done. Flagyl IV will be added. He also states that he did not sleep well last night due to frequent awakenings.. Patient has been seen by Dr. Lynch and he does not believe patient is obstructed and excessive diarrhea may be secondary to chemotherapy or enteritis. No plans for NG tube. Agrees with clear liquid diet. 3/2: The patient is continuing to have frequent watery stools. He is on a clear liquid diet and had one episode of emesis yesterday. Nausea has resolved this morning. He complains of generalized abdominal pain, no cramps. C. difficile toxin came back negative. Plan to continue clear liquid diet today. Abdominal x-ray from yesterday did show distended gas filled loops of large and small bowel consistent with intestinal ileus. No free air. White count has dropped to 1.3, hemoglobin 9.0, platelet count 153. Sodium 138, potassium 3.8, chloride 111 and CO2 18 down from 20 of yesterday. Creatinine 1.19. Stool for lactoferrin was in positive. Stool culture in progress. IV fluids will be changed to D5 0.9 and 100 mL/h due to acidosis. Patient is followed by general surgery, Dr. Lynch and Dr. Odonnell from oncology. CEA ordered. Patient is plan for chemotherapy as an outpatient once this condition resolves. 10/25: Patient has been afebrile, heart rate running in the 60s to 80s, blood pressure 119/82, pulse ox 99% on room air. Stool culture is pending. He continues to have loose stool but foul odor has resolved. He has has had multiple emesis and scopolamine patch has been added. Patient is continued on clear liquid diet only. Potassium will be replaced and added to his IV fluids. Review of Systems CONSTITUTIONAL: Well-developed no acute respiratory distress. EYES: No icterus sclerae, no conjunctivitis. EARS, NOSE, MOUTH, THROAT, and FACE: No sore throat, lymphadenopathy, carotid bruits or deformity. RESPIRATORY: No SOB cough or wheezes. CARDIOVASCULAR: No CP, Palpitation, PND, Orthopnea, or angina. GASTROINTESTINAL: Positive abdominal pain, reports nausea reports vomiting, reports distention reports diarrhea. GENITOURINARY: Negative for Hematuria or UTI, no kidney stones. INTEGUMENT/BREAST: Negative for any muscular injury with mild osteoarthritis.. HEMATOLOGIC/LYMPHATIC: Negative for bleed or purpura. MUSCULOSKELTAL: Negative for Myalgia or arthralgia. NEURLOGICAL: No LOC, Sz or syncope, blurred vision dizziness or abnormality.. BEHAVIORAL/PSYCH: Negative. ENDOCRINE: Negative. Objective - Vital Signs Vital signs: Vital Signs Temp 97.8 F 10/25/18 05:00 Pulse 63 10/25/18 05:00 Resp 16 10/25/18 05:00 BP 119/82 10/25/18 05:00 Pulse Ox 99 10/25/18 05:00 Intake & Output 10/24/18 10/25/18 10/25/18 18:59 06:59 18:59 Intake Total 800 1660 Output Total 550 Balance 800 1110 Intake: Intake, IV Titration 800 1300 Amount Dextrose 5%-0.9% NaCl 1, 800 1200 000 ml @ 100 mls/hr IV . Q10H [facility] Rx#:[id number] metroNIDAZOLE-NS PMX 500 100 mg In Saline 1 100ml.bag @ 100 mls/hr IVPB Q8H [facility] Rx#:[id number] Oral 360 Output: Emesis 550 Other: Voiding Method Diaper Incontinent # Voids 1 # Bowel Movements 1 1 - Exam General Appearance: Alert, cooperative, no distress, appears stated age. Patient is resting in bed with emesis basin in hand. Neck HEENT: Supple, no lymphadenopathy, no thyroid enlargement, no carotid bruits. Lungs: Clear to auscultation without crackles or wheezes no rhonchi, no deformity. Chest Wall: Chest wall normal expansion with deep inspiration no tenderness and no deformity was found on exam, no costochondral pain or discomfort. Heart: Regular rate and rhythm, S1, S2 normal, no murmur, rub or gallop. Back: Symmetric, no curvature, ROM normal, no CVA tenderness. Abdomen: Soft slight tenderness in the mid abdominal region area with no rebound or rigidity. Hyper bowel sound. Extremities: Extremities normal, atraumatic, no cyanosis or edema. Pulses: 2+ and symmetric. Skin: Skin color, texture, tugor normal, no rashes or lesions. Neurologic: Alert oriented x3 cranial nerves II through XII intact, no motor deficit, no abnormal balance or gait. - Labs CBC & Chem 7: 10/25/18 08:50 10/25/18 08:50 Labs: Abnormal Lab Results - Last 24 Hours (Table) 10/24/18 Range/Units 06:47 Neutrophils # (Manual) 0.50 L (1.3-7.7) k/uL Lymphocytes # (Manual) 0.42 L (1.0-4.8) k/uL Assessment and Plan Plan: 1 acute abdominal pain and diarrhea most likely secondary to chemotherapy or enteritis, ileus. Stool studies in progress. Consult with Dr. Lynch appreciated. Continue IV fluids, Flagyl has been added. Continue clear liquid diet. A continue Zofran and scopolamine patch ordered for today. 2 acute kidney injury with dehydration secondary to profuse diarrhea. IV fluids changed to D5 0.9 with 20 mEq of KCl at 100 mL per hour. 3 metabolic acidosis secondary to diarrhea. IV fluids changed to D5 0.9 normal saline at 100 mL per hour. 4 colon cancer with metastasis: Has been on chemotherapy seen oncology on regular basis. Consult with Dr. Blas appreciated. 5 history of DVT of the right leg. Continue eliquis 2.5 mg twice daily 6 anemia and leukopenia: Can be combination results from chemotherapy repeat CBC daily. 7 GI prophylaxis and possible gastritis and enteritis: Patient will be on pantoprazole 40 mg daily and Zofran on as needed basis. 8 DVT prophylaxis: Patient has been on treatment for DVT with Eliquis. 9 hypokalemia, replacement. CODE STATUS: Full code. Discharge plan: Return home Impression and plan of care have been directed as dictated by the signing physician. Brea Garcia nurse practitioner acting as scribe for signing physician.
[2018-10-25] MEDS: D5-0.9% NACL WITH KCL 20 MEQ/L 1,000 ML IV SCH ×2 (14:38→22:10)
[2018-10-26] MEDS: D5-0.9% NACL WITH KCL 20 MEQ/L 1,000 ML IV SCH ×3 (02:44→19:42)
[2018-10-26] MEDS: MORPHINE SULFATE 4 MG/ML SYRINGE IV PRN ×5 (03:28→21:36)
[2018-10-26] MEDS: metroNIDAZOLE-NS PMX 500 MG in SALINE 1 100ML.BAG IVPB SCH ×3 (03:29→19:42)
[2018-10-26 07:15] LABS: Anisocytosis Slight; HCT 31.7 % (39.0-53.0); HGB 9.8 gm/dL (13.0-17.5); Hypochromasia Marked; MCH 24.7 pg (25.0-35.0); MCHC 30.8 g/dL (31.0-37.0); Mean Platelet Volume 6.5; Microcytosis Slight; Platelet Count 262 k/uL (150-450); RBC 3.96 m/uL (4.30-5.90); RDW 17.7 % (11.5-15.5); WBC 3.4 k/uL (3.8-10.6)
[2018-10-26 07:39] LABS: ALT 24 U/L (21-72); AST 10 U/L (17-59); Albumin 2.7 g/dL (3.5-5.0); Alkaline Phosphatase 96 U/L (38-126); Anion Gap 8 mmol/L; Blood Urea Nitrogen 15 mg/dL (9-20); Calcium 8.7 mg/dL (8.4-10.2); Carbon Dioxide 22 mmol/L (22-30); Chloride 115 mmol/L (98-107); Glucose 135 mg/dL (74-99); Potassium 3.8 mmol/L (3.5-5.1); Sodium 145 mmol/L (137-145); Total Bilirubin 0.4 mg/dL (0.2-1.3); Total Protein 5.8 g/dL (6.3-8.2)
[2018-10-26] MEDS: METOCLOPRAMIDE 5 MG/ML 2 ML VIAL IVP SCH ×3 (08:41→17:26)
[2018-10-26] MEDS: PANTOPRAZOLE 40 MG/10 ML VIAL IV SCH (08:45)
[2018-10-26] MEDS: APIXABAN 2.5 MG TABLET PO SCH ×2 (08:45→21:04)
[2018-10-26] MEDS: LOPERAMIDE 2 MG CAP PO SCH ×4 (08:45→21:04)
--- NOTE | 2018-10-26 12:40 | P.PN ---
Subjective Progress Note Date: 10/26/18 57-year-old male of Dr. Russ patient with past medical history of stage III colon cancer has been on chemotherapy has metastasis to the spine. Patient seen Dr. Tariq on regular basis. Has not felt well in the last 4-5 days developed to have generalized weakness fatigue not been able template to walk developed to have significant abdominal pain with nausea and vomiting not able to keep any food or fluid down symptoms become much worse lately patient is normally having diarrhea since his colectomy but lately has been more constipated and no bowel movement last 48 hours. Ended up coming to the emergency apartment at [facility] where was seen and evaluated he was in acute kidney injury with mild leukopenia and mild anemia and mild dehydration. CT of the abdomen showed partial bowel obstruction versus enteritis also had multiple bladder stone. Patient was hospitalized continue hydration no NG tube needed this point we'll consult general surgery and consult oncology continue conservative management next 24 hours if continued to have nausea vomiting and worsening x-ray might require an NG tube with decompression and possible intervention. 3/1: Patient has had liquid stools and specimen will be sent for C. difficile toxin. Patient has history of C. difficile colitis proximal than 2 years ago. He has had incontinence of stool. His abdomen remains a little sore. He is currently nothing by mouth and will advance his diet to clear liquids for lunch. X-rays of the abdomen will be done. Flagyl IV will be added. He also states that he did not sleep well last night due to frequent awakenings.. Patient has been seen by Dr. Lynch and he does not believe patient is obstructed and excessive diarrhea may be secondary to chemotherapy or enteritis. No plans for NG tube. Agrees with clear liquid diet. 3/2: The patient is continuing to have frequent watery stools. He is on a clear liquid diet and had one episode of emesis yesterday. Nausea has resolved this morning. He complains of generalized abdominal pain, no cramps. C. difficile toxin came back negative. Plan to continue clear liquid diet today. Abdominal x-ray from yesterday did show distended gas filled loops of large and small bowel consistent with intestinal ileus. No free air. White count has dropped to 1.3, hemoglobin 9.0, platelet count 153. Sodium 138, potassium 3.8, chloride 111 and CO2 18 down from 20 of yesterday. Creatinine 1.19. Stool for lactoferrin was in positive. Stool culture in progress. IV fluids will be changed to D5 0.9 and 100 mL/h due to acidosis. Patient is followed by general surgery, Dr. Lynch and Dr. Odonnell from oncology. CEA ordered. Patient is plan for chemotherapy as an outpatient once this condition resolves. 10/25: Patient has been afebrile, heart rate running in the 60s to 80s, blood pressure 119/82, pulse ox 99% on room air. Stool culture is pending. He continues to have loose stool but foul odor has resolved. He has has had multiple emesis and scopolamine patch has been added. Patient is continued on clear liquid diet only. Potassium will be replaced and added to his IV fluids. 10/26: Patient is complaining of ongoing vomiting. He states he is able to keep and occasional water down but that's it. Dr. Lynch added Reglan and he is also on Zofran and scopolamine patch. He states the diarrhea is slowing his last bowel movement was yesterday. No lower extremity edema. Patient is 4 days since admission without food. Patient will be started on TPN. Review of Systems CONSTITUTIONAL: Well-developed no acute respiratory distress. EYES: No icterus sclerae, no conjunctivitis. EARS, NOSE, MOUTH, THROAT, and FACE: No sore throat, lymphadenopathy, carotid bruits or deformity. RESPIRATORY: No SOB cough or wheezes. CARDIOVASCULAR: No CP, Palpitation, PND, Orthopnea, or angina. GASTROINTESTINAL: Positive abdominal pain, reports intractable intractable nausea reports vomiting, reports distention reports diarrhea. GENITOURINARY: Negative for Hematuria or UTI, no kidney stones. INTEGUMENT/BREAST: Negative for any muscular injury with mild osteoarthritis.. HEMATOLOGIC/LYMPHATIC: Negative for bleed or purpura. MUSCULOSKELTAL: Negative for Myalgia or arthralgia. NEURLOGICAL: No LOC, Sz or syncope, blurred vision dizziness or abnormality.. BEHAVIORAL/PSYCH: Negative. ENDOCRINE: Negative. Objective - Vital Signs Vital signs: Vital Signs Temp 97.5 F L 10/26/18 05:00 Pulse 61 10/26/18 05:00 Resp 16 10/26/18 05:00 BP 129/86 10/26/18 05:00 Pulse Ox 98 10/26/18 05:00 Intake & Output 10/25/18 10/26/18 10/26/18 18:59 06:59 18:59 Intake Total 2120 Output Total 300 800 Balance -300 2120 -800 Intake: Intake, IV Titration 1300 Amount D5-0.9% NaCl with KCl 20 400 Meq/l 1,000 ml @ 100 mls/ hr IV .Q10H MOON Rx#: [id number] Dextrose 5%-0.9% NaCl 1, 600 000 ml @ 100 mls/hr IV . Q10H MOON Rx#:[id number] Potassium Chloride 20 meq 100 In Water For Injection 1 100ml.bag @ 50 mls/hr IVPB ONCE STA Rx#: [id number] metroNIDAZOLE-NS PMX 500 200 mg In Saline 1 100ml.bag @ 100 mls/hr IVPB Q8H MOON Rx#:[id number] Oral 820 Output: Emesis 300 800 Other: Voiding Method Diaper Incontinent # Voids 0 1 - Exam General Appearance: Alert, cooperative, no distress, appears stated age. Patient is resting in bed with emesis basin in hand. Neck HEENT: Supple, no lymphadenopathy, no thyroid enlargement, no carotid bruits. Lungs: Clear to auscultation without crackles or wheezes no rhonchi, no deformity. Chest Wall: Chest wall normal expansion with deep inspiration no tenderness and no deformity was found on exam, no costochondral pain or discomfort. Heart: Regular rate and rhythm, S1, S2 normal, no murmur, rub or gallop. Back: Symmetric, no curvature, ROM normal, no CVA tenderness. Abdomen: Soft slight tenderness in the mid abdominal region area with no rebound or rigidity. Extremities: Extremities normal, atraumatic, no cyanosis or edema. Pulses: 2+ and symmetric. Skin: Skin color, texture, tugor normal, no rashes or lesions. Neurologic: Alert oriented x3 cranial nerves II through XII intact, no motor deficit, no abnormal balance or gait. - Labs CBC & Chem 7: 10/26/18 06:35 10/26/18 06:35 Labs: Abnormal Lab Results - Last 24 Hours (Table) 10/26/18 10/26/18 Range/Units 06:35 06:35 WBC 3.4 L (3.8-10.6) k/uL RBC 3.96 L (4.30-5.90) m/uL Hgb 9.8 L (13.0-17.5) gm/dL Hct 31.7 L (39.0-53.0) % MCH 24.7 L (25.0-35.0) pg MCHC 30.8 L (31.0-37.0) g/dL RDW 17.7 H (11.5-15.5) % Chloride 115 H (98-107) mmol/L Glucose 135 H (74-99) mg/dL AST 10 L (17-59) U/L Total Protein 5.8 L (6.3-8.2) g/dL Albumin 2.7 L (3.5-5.0) g/dL Assessment and Plan Plan: 1 acute abdominal pain and diarrhea most likely secondary to chemotherapy or enteritis, ileus. Stool studies in progress. Consult with Dr. Lynch appreciated. Continue IV fluids, Flagyl has been added. Continue clear liquid diet. A continue Zofran and scopolamine patch ordered for today. Reglan added. Patient will be started on TPN. 2 acute kidney injury with dehydration secondary to profuse diarrhea. IV fluids changed to D5 0.9 with 20 mEq of KCl at 100 mL per hour. 3 metabolic acidosis secondary to diarrhea. IV fluids changed to D5 0.9 normal saline at 100 mL per hour. 4 colon cancer with metastasis: Has been on chemotherapy seen oncology on regular basis. Consult with Dr. Odonnell appreciated. 5 history of DVT of the right leg. Continue eliquis 2.5 mg twice daily 6 anemia and leukopenia: Can be combination results from chemotherapy repeat CBC daily. 7 GI prophylaxis and possible gastritis and enteritis: Patient will be on pantoprazole 40 mg daily and Zofran on as needed basis. 8 DVT prophylaxis: Patient has been on treatment for DVT with Eliquis. 9 hypokalemia, replacement. 10. Severe protein calorie malnutrition with weight loss of 40 pounds, albumin 2.7. Patient will be started on TPN CODE STATUS: Full code. Discharge plan: Return home Impression and plan of care have been directed as dictated by the signing physician. Brea Garcia nurse practitioner acting as scribe for signing physician.
[2018-10-26 14:41] LABS: Magnesium 2.3 mg/dL (1.6-2.3); Phosphorus 1.9 mg/dL (2.5-4.5)
[2018-10-26] MEDS ORDERED: POTASSIUM PHOSPHATE 10 MMOL in SODIUM CHLORIDE 0.9% 100 ML IV SCH (16:00)
[2018-10-26] MEDS ORDERED: MVI, ADULT NO.4 WITH VIT K 10 ML, TRACE (CONC-1ML/DOSE) 1 ML in AMINO ACID 5%-D15W+LYTE... IV SCH ×3 (16:30)
[2018-10-26] MEDS: INSULIN ASPART (NovoLOG) 100 UNIT/ML VIAL SQ SCH ×2 (17:06→18:12)
--- NOTE | 2018-10-26 17:12 | P.PN ---
Subjective Progress Note Date: 10/26/18 Patient seen and examined at bedside. States he continues to have nausea and emesis episodes. Diarrhea is improving. Objective - Vital Signs Vital signs: Vital Signs Temp 97.8 F 10/26/18 11:44 Pulse 68 10/26/18 11:44 Resp 16 10/26/18 11:44 BP 122/81 10/26/18 11:44 Pulse Ox 97 10/26/18 11:44 Intake & Output 10/25/18 10/26/18 10/26/18 18:59 06:59 18:59 Intake Total 2120 Output Total 392 707 4604 Balance -300 1720 -1200 Weight 77.111 kg Intake: Intake, IV Titration 1300 Amount D5-0.9% NaCl with KCl 20 400 Meq/l 1,000 ml @ 100 mls/ hr IV .Q10H MOON Rx#: [id number] Dextrose 5%-0.9% NaCl 1, 600 000 ml @ 100 mls/hr IV . Q10H MOON Rx#:[id number] Potassium Chloride 20 meq 100 In Water For Injection 1 100ml.bag @ 50 mls/hr IVPB ONCE STA Rx#: [id number] metroNIDAZOLE-NS PMX 500 200 mg In Saline 1 100ml.bag @ 100 mls/hr IVPB Q8H MOON Rx#:[id number] Oral 820 Output: Emesis 183 047 8116 Other: Voiding Method Diaper Diaper Incontinent Incontinent # Voids 0 1 - Constitutional General appearance: Present: cooperative, no acute distress - Respiratory Details: No difficulty with respiration - Gastrointestinal Gastrointestinal Comment(s): Soft, nontender, nondistended, no rebound, no guarding - Musculoskeletal Musculoskeletal: Present: generalized weakness - Psychiatric Psychiatric: Present: A&O x's 3 - Labs CBC & Chem 7: 10/26/18 06:35 10/26/18 06:35 Labs: Abnormal Lab Results - Last 24 Hours (Table) 10/26/18 10/26/18 10/26/18 Range/Units 06:35 06:35 06:35 WBC 3.4 L (3.8-10.6) k/uL RBC 3.96 L (4.30-5.90) m/uL Hgb 9.8 L (13.0-17.5) gm/dL Hct 31.7 L (39.0-53.0) % MCH 24.7 L (25.0-35.0) pg MCHC 30.8 L (31.0-37.0) g/dL RDW 17.7 H (11.5-15.5) % Chloride 115 H (98-107) mmol/L Glucose 135 H (74-99) mg/dL Phosphorus 1.9 L (2.5-4.5) mg/dL AST 10 L (17-59) U/L Total Protein 5.8 L (6.3-8.2) g/dL Albumin 2.7 L (3.5-5.0) g/dL 10/26/18 Range/Units 15:52 WBC (3.8-10.6) k/uL RBC (4.30-5.90) m/uL Hgb (13.0-17.5) gm/dL Hct (39.0-53.0) % MCH (25.0-35.0) pg MCHC (31.0-37.0) g/dL RDW (11.5-15.5) % Chloride (98-107) mmol/L Glucose (74-99) mg/dL Phosphorus (2.5-4.5) mg/dL AST (17-59) U/L Total Protein (6.3-8.2) g/dL Albumin 2.7 L (3.5-5.0) g/dL Assessment and Plan (1) Colon cancer Narrative/Plan: 57-year-old male with continued ileus/nausea and vomiting - Continue with clear liquid diet as tolerated by patient - C. diff study was negative, lactoferrin was positive, continue Flagyl - Continue scopolamine patch, add Reglan as necessary - Continue IV fluid resuscitation due to emesis episodes - Continue medical and oncologic recommendations Current Visit: Yes Status: Acute Code(s): C18.9 - MALIGNANT NEOPLASM OF COLON, UNSPECIFIED SNOMED Code(s): 856891368
[2018-10-26] MEDS: FAT EMULSION 20% 250 ML in EMPTY BAG 1 BAG IV SCH (19:24)
[2018-10-26 20:06] LABS: Glucose,Whole Blood 141 mg/dL (75-99)
[2018-10-26] MEDS: ONDANSETRON 4 MG/2 ML VIAL IVP PRN (21:04)
[2018-10-27] MEDS: INSULIN ASPART (NovoLOG) 100 UNIT/ML VIAL SQ SCH ×5 (00:21→23:33)
[2018-10-27 00:22] LABS: Glucose,Whole Blood 120 mg/dL (75-99)
[2018-10-27] MEDS: METOCLOPRAMIDE 5 MG/ML 2 ML VIAL IVP SCH ×5 (00:24→23:30)
[2018-10-27] MEDS: MORPHINE SULFATE 4 MG/ML SYRINGE IV PRN ×4 (03:05→17:00)
[2018-10-27] MEDS: D5-0.9% NACL WITH KCL 20 MEQ/L 1,000 ML IV SCH ×3 (03:05→23:33)
[2018-10-27] MEDS: metroNIDAZOLE-NS PMX 500 MG in SALINE 1 100ML.BAG IVPB SCH ×3 (03:05→20:03)
[2018-10-27 05:54] LABS: Glucose,Whole Blood 127 mg/dL (75-99)
[2018-10-27] MEDS: LOPERAMIDE 2 MG CAP PO SCH ×4 (07:32→19:39)
[2018-10-27 08:10] LABS: Ionized Calcium 5.5 mg/dL (4.5-5.3)
[2018-10-27 08:18] LABS: Anion Gap 7 mmol/L; Blood Urea Nitrogen 16 mg/dL (9-20); Calcium 8.9 mg/dL (8.4-10.2); Carbon Dioxide 24 mmol/L (22-30); Chloride 116 mmol/L (98-107); Glucose 141 mg/dL (74-99); Magnesium 2.3 mg/dL (1.6-2.3); Phosphorus 1.8 mg/dL (2.5-4.5); Potassium 3.8 mmol/L (3.5-5.1); Sodium 147 mmol/L (137-145)
[2018-10-27] MEDS: APIXABAN 2.5 MG TABLET PO SCH ×2 (08:52→20:03)
[2018-10-27] MEDS: PANTOPRAZOLE 40 MG/10 ML VIAL IV SCH (08:52)
[2018-10-27] MEDS ORDERED: METOCLOPRAMIDE 5 MG/ML 2 ML VIAL IVP PRN (09:00)
[2018-10-27 11:22] LABS: Glucose,Whole Blood 144 mg/dL (75-99)
--- NOTE | 2018-10-27 12:22 | P.PN ---
Subjective Progress Note Date: 10/27/18 57-year-old male of Dr. Russ patient with past medical history of stage III colon cancer has been on chemotherapy has metastasis to the spine. Patient seen Dr. Tariq on regular basis. Has not felt well in the last 4-5 days developed to have generalized weakness fatigue not been able template to walk developed to have significant abdominal pain with nausea and vomiting not able to keep any food or fluid down symptoms become much worse lately patient is normally having diarrhea since his colectomy but lately has been more constipated and no bowel movement last 48 hours. Ended up coming to the emergency apartment at [facility] where was seen and evaluated he was in acute kidney injury with mild leukopenia and mild anemia and mild dehydration. CT of the abdomen showed partial bowel obstruction versus enteritis also had multiple bladder stone. Patient was hospitalized continue hydration no NG tube needed this point we'll consult general surgery and consult oncology continue conservative management next 24 hours if continued to have nausea vomiting and worsening x-ray might require an NG tube with decompression and possible intervention. 3/1: Patient has had liquid stools and specimen will be sent for C. difficile toxin. Patient has history of C. difficile colitis proximal than 2 years ago. He has had incontinence of stool. His abdomen remains a little sore. He is currently nothing by mouth and will advance his diet to clear liquids for lunch. X-rays of the abdomen will be done. Flagyl IV will be added. He also states that he did not sleep well last night due to frequent awakenings.. Patient has been seen by Dr. Lynch and he does not believe patient is obstructed and excessive diarrhea may be secondary to chemotherapy or enteritis. No plans for NG tube. Agrees with clear liquid diet. 3/2: The patient is continuing to have frequent watery stools. He is on a clear liquid diet and had one episode of emesis yesterday. Nausea has resolved this morning. He complains of generalized abdominal pain, no cramps. C. difficile toxin came back negative. Plan to continue clear liquid diet today. Abdominal x-ray from yesterday did show distended gas filled loops of large and small bowel consistent with intestinal ileus. No free air. White count has dropped to 1.3, hemoglobin 9.0, platelet count 153. Sodium 138, potassium 3.8, chloride 111 and CO2 18 down from 20 of yesterday. Creatinine 1.19. Stool for lactoferrin was in positive. Stool culture in progress. IV fluids will be changed to D5 0.9 and 100 mL/h due to acidosis. Patient is followed by general surgery, Dr. Lnych and Dr. Odonnell from oncology. CEA ordered. Patient is plan for chemotherapy as an outpatient once this condition resolves. 3: Patient has been afebrile, heart rate running in the 60s to 80s, blood pressure 119/82, pulse ox 99% on room air. Stool culture is pending. He continues to have loose stool but foul odor has resolved. He has has had multiple emesis and scopolamine patch has been added. Patient is continued on clear liquid diet only. Potassium will be replaced and added to his IV fluids. 10/26: Patient is complaining of ongoing vomiting. He states he is able to keep and occasional water down but that's it. Dr. Lynch added Reglan and he is also on Zofran and scopolamine patch. He states the diarrhea is slowing his last bowel movement was yesterday. No lower extremity edema. Patient is 4 days since admission without food. Patient will be started on TPN. 10/27: Patient states that he had a lot of vomiting yesterday evening but none this morning. He continues to have diarrhea which is chronic for him. He has been able to keep down small amounts of water and juan antonio flower. Patient was started on TPN yesterday. He continues to have hiccups that come and go. Patient has been afebrile, blood pressure 130/78, pulse ox 97% on room air, heart rate running in the 60s. Sodium 147, potassium 3.8, chloride 116, CO2 24 , BUN 16 and creatinine 0.93. Blood sugar running between 09/14/1945. Magnesium is 2.3, phosphorus 1.8. Review of Systems CONSTITUTIONAL: Well-developed no acute respiratory distress. EYES: No icterus sclerae, no conjunctivitis. EARS, NOSE, MOUTH, THROAT, and FACE: No sore throat, lymphadenopathy, carotid bruits or deformity. RESPIRATORY: No SOB cough or wheezes. CARDIOVASCULAR: No CP, Palpitation, PND, Orthopnea, or angina. GASTROINTESTINAL: Positive abdominal pain, denies nausea denies vomiting, reports distention reports diarrhea. GENITOURINARY: Negative for Hematuria or UTI, no kidney stones. INTEGUMENT/BREAST: Negative for any muscular injury with mild osteoarthritis.. HEMATOLOGIC/LYMPHATIC: Negative for bleed or purpura. MUSCULOSKELTAL: Negative for Myalgia or arthralgia. NEURLOGICAL: No LOC, Sz or syncope, blurred vision dizziness or abnormality.. BEHAVIORAL/PSYCH: Negative. ENDOCRINE: Negative. Objective - Vital Signs Vital signs: Vital Signs Temp 98.1 F 10/27/18 05:00 Pulse 68 10/27/18 05:00 Resp 18 10/27/18 05:00 BP 144/97 10/27/18 05:00 Pulse Ox 98 10/27/18 05:00 Intake & Output 10/26/18 10/27/18 10/27/18 18:59 06:59 18:59 Intake Total 800 2699 Output Total 1600 600 Balance -800 2099 Weight 77.111 kg 83 kg Intake: Intake, IV Titration 800 1659 Amount D5-0.9% NaCl with KCl 20 800 900 Meq/l 1,000 ml @ 100 mls/ hr IV .Q10H MOON Rx#: [id number] Fat Emulsion 20% 250 ml 189 In Empty Bag 1 bag @ 21 mls/hr IV DAILY@1800 MOON Rx#:[id number] Mvi, Adult No.4 with Vit 270 K 10 ml Trace (Conc-1Ml/ Dose) 1 ml In Amino Acid 5%-D15w+Lytes*E* 1,000 ml @ 30 mls/hr IV .Q24H MOON Rx#:[id number] Potassium Phosphate 10 100 mmol In Sodium Chloride 0 .9% 100 ml @ 50 mls/hr IV Q2H MOON Rx#:[id number] metroNIDAZOLE-NS PMX 500 200 mg In Saline 1 100ml.bag @ 100 mls/hr IVPB Q8H MOON Rx#:[id number] Oral 1040 Output: Emesis 1600 600 Other: Voiding Method Diaper Diaper Incontinent Incontinent # Voids 1 1 - Exam This is a 57-year-old male. He is in bed and appears to be comfortable today. Neck HEENT: Supple, no lymphadenopathy, no thyroid enlargement, no carotid bruits. Lungs: Clear to auscultation without crackles or wheezes no rhonchi, no deformity. Chest Wall: Chest wall normal expansion with deep inspiration no tenderness and no deformity was found on exam, no costochondral pain or discomfort. Heart: Regular rate and rhythm, S1, S2 normal, no murmur, rub or gallop. Back: Symmetric, no curvature, ROM normal, no CVA tenderness. Abdomen: Soft slight tenderness in the mid abdominal region area with no rebound or rigidity. Extremities: Extremities normal, atraumatic, no cyanosis or edema. Pulses: 2+ and symmetric. Skin: Skin color, texture, tugor normal, no rashes or lesions. Neurologic: Alert oriented x3 cranial nerves II through XII intact, no motor deficit, no abnormal balance or gait. - Labs CBC & Chem 7: 10/26/18 06:35 10/27/18 07:00 Labs: Abnormal Lab Results - Last 24 Hours (Table) 10/26/18 10/26/18 10/26/18 Range/Units 06:35 06:35 15:52 Sodium (137-145) mmol/L Chloride (98-107) mmol/L Glucose (74-99) mg/dL POC Glucose (mg/dL) (75-99) mg/dL Ionized Calcium Mario (4.5-5.3) mg/dL Phosphorus 1.9 L (2.5-4.5) mg/dL Albumin 2.7 L (3.5-5.0) g/dL Carcinoembryonic Ag 6.8 H (0.0-4.9) ng/mL 10/26/18 10/27/18 10/27/18 Range/Units 20:04 00:05 05:52 Sodium (137-145) mmol/L Chloride (98-107) mmol/L Glucose (74-99) mg/dL POC Glucose (mg/dL) 141 H 120 H 127 H (75-99) mg/dL Ionized Calcium Mario (4.5-5.3) mg/dL Phosphorus (2.5-4.5) mg/dL Albumin (3.5-5.0) g/dL Carcinoembryonic Ag (0.0-4.9) ng/mL 10/27/18 Range/Units 07:00 Sodium 147 H (137-145) mmol/L Chloride 116 H (98-107) mmol/L Glucose 141 H (74-99) mg/dL POC Glucose (mg/dL) (75-99) mg/dL Ionized Calcium Mario 5.5 H (4.5-5.3) mg/dL Phosphorus 1.8 L (2.5-4.5) mg/dL Albumin (3.5-5.0) g/dL Carcinoembryonic Ag (0.0-4.9) ng/mL Microbiology - Last 24 Hours (Table) 10/23/18 18:45 Stool Culture - Final Stool Assessment and Plan Plan: 1 acute abdominal pain and diarrhea most likely secondary to chemotherapy or enteritis, ileus. Stool studies in progress. Consult with Dr. Lynch appreciated. Continue IV fluids, Flagyl has been added. Continue clear liquid diet. Continue Zofran and scopolamine patch ordered for today. Reglan added. Continue TPN. 2 acute kidney injury with dehydration secondary to profuse diarrhea. IV fluids changed to D5 0.9 with 20 mEq of KCl at 100 mL per hour. 3 metabolic acidosis secondary to diarrhea. IV fluids changed to D5 0.9 normal saline at 100 mL per hour. 4 colon cancer with metastasis: Has been on chemotherapy seen oncology on regular basis. Consult with Dr. Odonnell appreciated. 5 history of DVT of the right leg. Continue eliquis 2.5 mg twice daily 6 anemia and leukopenia: Can be combination results from chemotherapy repeat CBC daily. 7 GI prophylaxis and possible gastritis and enteritis: Patient will be on pantoprazole 40 mg daily and Zofran on as needed basis. 8 DVT prophylaxis: Patient has been on treatment for DVT with Eliquis. 9 hypokalemia, replacement. 10. Severe protein calorie malnutrition with weight loss of 40 pounds, albumin 2.7. Patient will be started on TPN CODE STATUS: Full code. Discharge plan: Return home Impression and plan of care have been directed as dictated by the signing physician. Brea Garcia nurse practitioner acting as scribe for signing physician.
[2018-10-27] MEDS: FAT EMULSION 20% 250 ML in EMPTY BAG 1 BAG IV SCH (17:02)
[2018-10-27 17:23] LABS: Glucose,Whole Blood 138 mg/dL (75-99)
[2018-10-27 20:31] LABS: Glucose,Whole Blood 115 mg/dL (75-99)
[2018-10-27 23:32] LABS: Glucose,Whole Blood 192 mg/dL (75-99)
--- NOTE | 2018-10-27 23:39 | P.PN ---
Subjective Progress Note Date: 10/27/18 The pt continues to c/o n/v, and diarrhea, but states his symptoms are improved. Abdominal cramps are diminished, and he is starting to feel hungry. No f/c/blood in stool. Objective - Vital Signs Vital signs: Vital Signs Temp 98.3 F 10/27/18 21:00 Pulse 74 10/27/18 21:00 Resp 18 10/27/18 21:00 BP 153/94 10/27/18 21:00 Pulse Ox 97 10/27/18 21:00 Intake & Output 10/27/18 10/27/18 10/28/18 06:59 18:59 06:59 Intake Total 2699 1000 200 Output Total 600 Balance 2099 1000 200 Weight 83 kg Intake: Intake, IV Titration 1659 840 Amount D5-0.9% NaCl with KCl 20 900 Meq/l 1,000 ml @ 100 mls/ hr IV .Q10H [facility] Rx#: [id number] Fat Emulsion 20% 250 ml 189 In Empty Bag 1 bag @ 21 mls/hr IV DAILY@1800 MOON Rx#:[id number] Mvi, Adult No.4 with Vit 270 K 10 ml Trace (Conc-1Ml/ Dose) 1 ml In Amino Acid 5%-D15w+Lytes*E* 1,000 ml @ 30 mls/hr IV .Q24H [facility] Rx#:[id number] Mvi, Adult No.4 with Vit 240 K 10 ml Trace (Conc-1Ml/ Dose) 1 ml Sodium Acetate 24 meq Magnesium Sulfate gm 2 gm Potassium Phosphate 30 mmol In Amino Acid 5%-D15w 1,000 ml @ 100 mls/hr IV .BY DURATION [facility] Rx#: [id number] Potassium Phosphate 10 100 mmol In Sodium Chloride 0 .9% 100 ml @ 50 mls/hr IV Q2H [facility] Rx#:[id number] Sodium Acetate 24 meq 600 Magnesium Sulfate gm 1 gm Potassium Phosphate 15 mmol In Amino Acid 5%- D15w 1,000 ml @ 100 mls/ hr IV .BY DURATION [facility] Rx #:[id number] metroNIDAZOLE-NS PMX 500 200 mg In Saline 1 100ml.bag @ 100 mls/hr IVPB Q8H [facility] Rx#:[id number] Oral 1040 160 200 Output: Emesis 600 Other: Voiding Method Diaper Diaper Toilet Incontinent Incontinent # Voids 1 3 1 - Constitutional General appearance: Present: no acute distress - EENT Eyes: Present: EOMI ENT: Present: hearing grossly normal, normal oropharynx - Respiratory Respiratory: bilateral: CTA - Cardiovascular Rhythm: regular Heart sounds: normal: S1, S2 - Gastrointestinal General gastrointestinal: Present: normal bowel sounds, soft - Integumentary Integumentary: Present: normal - Neurologic Neurologic: Present: CNII-XII intact - Musculoskeletal Musculoskeletal: Present: generalized weakness, strength equal bilaterally - Psychiatric Psychiatric: Present: A&O x's 3 - Labs CBC & Chem 7: 10/26/18 06:35 10/27/18 07:00 Labs: Abnormal Lab Results - Last 24 Hours (Table) 10/27/18 10/27/18 10/27/18 Range/Units 00:05 05:52 07:00 Sodium 147 H (137-145) mmol/L Chloride 116 H (98-107) mmol/L Glucose 141 H (74-99) mg/dL POC Glucose (mg/dL) 120 H 127 H (75-99) mg/dL Ionized Calcium Mario 5.5 H (4.5-5.3) mg/dL Phosphorus 1.8 L (2.5-4.5) mg/dL 10/27/18 10/27/18 10/27/18 Range/Units 11:20 17:22 20:30 Sodium (137-145) mmol/L Chloride (98-107) mmol/L Glucose (74-99) mg/dL POC Glucose (mg/dL) 144 H 138 H 115 H (75-99) mg/dL Ionized Calcium Mario (4.5-5.3) mg/dL Phosphorus (2.5-4.5) mg/dL Microbiology - Last 24 Hours (Table) 10/23/18 18:45 Stool Culture - Final Stool Assessment and Plan (1) Partial small bowel obstruction Narrative/Plan: Surgery following. Obstruction is felt to be less likely vs ileus due to enteritis ( ? chemo related). Pt has had more n/v over the past 2-3 days. However symptoms are improved today. - Surgery following. Advance diet per them - Change reglan to prn to reduce diarrhea - Continue anti diarrheal Current Visit: Yes Status: Acute Code(s): K56.600 - PARTIAL INTESTINAL OBSTRUCTION, UNSPECIFIED TO CAUSE SNOMED Code(s): 393986891 (2) Colon cancer Narrative/Plan: Resume treatment once acute situation is sufficiently resolved. However if current enteritis/ileus is due to chemo, then the regimen may need to be reevaluated. Current Visit: Yes Status: Acute Code(s): C18.9 - MALIGNANT NEOPLASM OF COLON, UNSPECIFIED SNOMED Code(s): 469624639 (3) Dehydration Narrative/Plan: Clinically improved with hydration Current Visit: Yes Status: Acute Code(s): E86.0 - DEHYDRATION SNOMED Code( s): 74689550 (4) Bicytopenia Narrative/Plan: WBC is recovering, and hgb is stable in a safe range. Continue to monitor Current Visit: Yes Status: Acute Code(s): D75.89 - OTHER SPECIFIED DISEASES OF BLOOD AND BLOOD-FORMING ORGANS SNOMED Code(s): 298942760
[2018-10-28] MEDS: MORPHINE SULFATE 4 MG/ML SYRINGE IV PRN ×2 (01:47→06:05)
[2018-10-28] MEDS: D5-0.9% NACL WITH KCL 20 MEQ/L 1,000 ML IV SCH (02:52)
[2018-10-28] MEDS: metroNIDAZOLE-NS PMX 500 MG in SALINE 1 100ML.BAG IVPB SCH ×3 (04:05→19:54)
[2018-10-28 06:00] LABS: Glucose,Whole Blood 146 mg/dL (75-99)
[2018-10-28] MEDS: DIPHENOX-ATROP 2.5-0.025 MG 1 EACH TAB PO PRN (06:04)
[2018-10-28] MEDS: INSULIN ASPART (NovoLOG) 100 UNIT/ML VIAL SQ SCH ×3 (06:04→17:29)
[2018-10-28] MEDS: ONDANSETRON 4 MG/2 ML VIAL IVP PRN ×2 (06:04→21:50)
[2018-10-28 08:30] LABS: Anisocytosis Slight; HCT 33.2 % (39.0-53.0); Hypochromasia Marked; MCH 24.1 pg (25.0-35.0); MCV 80.3 fL (80.0-100.0); Microcytosis Slight; Platelet Count 287 k/uL (150-450); RBC 4.13 m/uL (4.30-5.90); RDW 18.5 % (11.5-15.5)
[2018-10-28 08:46] LABS: Sodium 144 mmol/L (137-145)
[2018-10-28 08:47] LABS: Anion Gap 7 mmol/L; Blood Urea Nitrogen 16 mg/dL (9-20); Calcium 8.5 mg/dL (8.4-10.2); Carbon Dioxide 25 mmol/L (22-30); Chloride 112 mmol/L (98-107); Glucose 105 mg/dL (74-99); Magnesium 2.3 mg/dL (1.6-2.3); Phosphorus 2.8 mg/dL (2.5-4.5); Potassium 3.7 mmol/L (3.5-5.1)
[2018-10-28] MEDS: LOPERAMIDE 2 MG CAP PO SCH ×4 (08:49→21:42)
[2018-10-28] MEDS: APIXABAN 2.5 MG TABLET PO SCH ×2 (08:49→21:42)
[2018-10-28] MEDS: PANTOPRAZOLE 40 MG/10 ML VIAL IV SCH (08:50)
[2018-10-28] MEDS: SCOPOLAMINE 1.5MG/72HR PATCH TRANSDERM SCH (08:52)
[2018-10-28] MEDS ORDERED: FUROSEMIDE 10 MG/ML 2 ML VIAL IV STA (10:00)
--- NOTE | 2018-10-28 11:25 | P.PN ---
Subjective Progress Note Date: 10/28/18 57-year-old male of Dr. Russ patient with past medical history of stage III colon cancer has been on chemotherapy has metastasis to the spine. Patient seen Dr. Tariq on regular basis. Has not felt well in the last 4-5 days developed to have generalized weakness fatigue not been able template to walk developed to have significant abdominal pain with nausea and vomiting not able to keep any food or fluid down symptoms become much worse lately patient is normally having diarrhea since his colectomy but lately has been more constipated and no bowel movement last 48 hours. Ended up coming to the emergency apartment at [facility] where was seen and evaluated he was in acute kidney injury with mild leukopenia and mild anemia and mild dehydration. CT of the abdomen showed partial bowel obstruction versus enteritis also had multiple bladder stone. Patient was hospitalized continue hydration no NG tube needed this point we'll consult general surgery and consult oncology continue conservative management next 24 hours if continued to have nausea vomiting and worsening x-ray might require an NG tube with decompression and possible intervention. 3/1: Patient has had liquid stools and specimen will be sent for C. difficile toxin. Patient has history of C. difficile colitis proximal than 2 years ago. He has had incontinence of stool. His abdomen remains a little sore. He is currently nothing by mouth and will advance his diet to clear liquids for lunch. X-rays of the abdomen will be done. Flagyl IV will be added. He also states that he did not sleep well last night due to frequent awakenings.. Patient has been seen by Dr. Lynch and he does not believe patient is obstructed and excessive diarrhea may be secondary to chemotherapy or enteritis. No plans for NG tube. Agrees with clear liquid diet. 3/2: The patient is continuing to have frequent watery stools. He is on a clear liquid diet and had one episode of emesis yesterday. Nausea has resolved this morning. He complains of generalized abdominal pain, no cramps. C. difficile toxin came back negative. Plan to continue clear liquid diet today. Abdominal x-ray from yesterday did show distended gas filled loops of large and small bowel consistent with intestinal ileus. No free air. White count has dropped to 1.3, hemoglobin 9.0, platelet count 153. Sodium 138, potassium 3.8, chloride 111 and CO2 18 down from 20 of yesterday. Creatinine 1.19. Stool for lactoferrin was in positive. Stool culture in progress. IV fluids will be changed to D5 0.9 and 100 mL/h due to acidosis. Patient is followed by general surgery, Dr. Lynch and Dr. Odonnell from oncology. CEA ordered. Patient is plan for chemotherapy as an outpatient once this condition resolves. 10/25: Patient has been afebrile, heart rate running in the 60s to 80s, blood pressure 119/82, pulse ox 99% on room air. Stool culture is pending. He co ntinues to have loose stool but foul odor has resolved. He has has had multiple emesis and scopolamine patch has been added. Patient is continued on clear liquid diet only. Potassium will be replaced and added to his IV fluids. 10/26: Patient is complaining of ongoing vomiting. He states he is able to keep and occasional water down but that's it. Dr. Lynch added Reglan and he is also on Zofran and scopolamine patch. He states the diarrhea is slowing his last bowel movement was yesterday. No lower extremity edema. Patient is 4 days since admission without food. Patient will be started on TPN. 10/27: Patient states that he had a lot of vomiting yesterday evening but none this morning. He continues to have diarrhea which is chronic for him. He has been able to keep down small amounts of water and juan antonio flower. Patient was started on TPN yesterday. He continues to have hiccups that come and go. Patient has been afebrile, blood pressure 130/78, pulse ox 97% on room air, heart rate running in the 60s. Sodium 147, potassium 3.8, chloride 116, CO2 24, BUN 16 and creatinine 0.93. Blood sugar running between 09/14/1945. Magnesium is 2.3, phosphorus 1.8. 6: Patient states that he is feeling better today but did have vomiting this morning. He continues to have diarrhea. He actually states that the diarrhea is thought to be a little bit worse from yesterday. He is on a clear liquid diet which will not be advanced. White count 5.6, hemoglobin 10, platelet count 287, creatinine 0.74, chloride 112. Capillary blood glucose running between 105 and 192. He is feeling a little short of breath today and one dose of IV Lasix 20 mg ordered and IV fluids/TPN to be decreased to 75 mL per hour total. Review of Systems CONSTITUTIONAL: Well-developed no acute respiratory distress. EYES: No icterus sclerae, no conjunctivitis. EARS, NOSE, MOUTH, THROAT, and FACE: No sore throat, lymphadenopathy, carotid bruits or deformity. RESPIRATORY: Reports SOB no cough or wheezes. CARDIOVASCULAR: No CP, Palpitation, PND, Orthopnea, or angina. GASTROINTESTINAL: Positive abdominal pain, denies nausea denies vomiting, reports distention reports diarrhea. GENITOURINARY: Negative for Hematuria or UTI, no kidney stones. INTEGUMENT/BREAST: Negative for any muscular injury with mild osteoarthritis.. HEMATOLOGIC/LYMPHATIC: Negative for bleed or purpura. MUSCULOSKELTAL: Negative for Myalgia or arthralgia. NEURLOGICAL: No LOC, Sz or syncope, blurred vision dizziness or abnormality.. BEHAVIORAL/PSYCH: Negative. ENDOCRINE: Negative. Objective - Vital Signs Vital signs: Vital Signs Temp 98.6 F 10/28/18 05:00 Pulse 76 10/28/18 05:00 Resp 16 10/28/18 05:00 BP 144/91 10/28/18 05:00 Pulse Ox 97 10/28/18 05:00 Intake & Output 10/27/18 10/28/18 10/28/18 18:59 06:59 18:59 Intake Total 1000 2439 Output Total 600 Balance 1000 1839 Weight 84 kg Intake: IV 800 Mvi, Adult No.4 with Vit 800 K 10 ml Trace (Conc-1Ml/ Dose) 1 ml Sodium Acetate 24 meq Magnesium Sulfate gm 2 gm Potassium Phosphate 30 mmol In Amino Acid 5%-D15w 1,000 ml @ 100 mls/hr IV .BY DURATION [facility] Rx#: [id number] Intake, IV Titration 840 1289 Amount D5-0.9% NaCl with KCl 20 900 Meq/l 1,000 ml @ 100 mls/ hr IV .Q10H MOON Rx#: [id number] Fat Emulsion 20% 250 ml 189 In Empty Bag 1 bag @ 21 mls/hr IV DAILY@1800 [facility]ON Rx#:[id number] Mvi, Adult No.4 with Vit 240 K 10 ml Trace (Conc-1Ml/ Dose) 1 ml Sodium Acetate 24 meq Magnesium Sulfate gm 2 gm Potassium Phosphate 30 mmol In Amino Acid 5%-D15w 1,000 ml @ 100 mls/hr IV .BY DURATION MOON Rx#: [id number] Sodium Acetate 24 meq 600 Magnesium Sulfate gm 1 gm Potassium Phosphate 15 mmol In Amino Acid 5%- D15w 1,000 ml @ 100 mls/ hr IV .BY DURATION MOON Rx #:[id number] metroNIDAZOLE-NS PMX 500 200 mg In Saline 1 100ml.bag @ 100 mls/hr IVPB Q8H MOON Rx#:[id number] Oral 160 350 Output: Emesis 600 Other: Voiding Method Diaper Toilet Toilet Incontinent # Voids 3 1 # Bowel Movements 4 - Exam This is a 57-year-old male. He is in bed and appears to be comfortable today. Patient's son is at the bedside Neck HEENT: Supple, no lymphadenopathy, no thyroid enlargement, no carotid bruits. Lungs: Clear to auscultation without crackles or wheezes no rhonchi, no deformity. Chest Wall: Chest wall normal expansion with deep inspiration no tenderness and no deformity was found on exam, no costochondral pain or discomfort. Heart: Regular rate and rhythm, S1, S2 normal, no murmur, rub or gallop. Back: Symmetric, no curvature, ROM normal, no CVA tenderness. Abdomen: Soft with bloating slight tenderness in the mid abdominal region area with no rebound or rigidity. Extremities: Extremities normal, atraumatic, no cyanosis or edema. Pulses: 2+ and symmetric. Skin: Skin color, texture, tugor normal, no rashes or lesions. Neurologic: Alert oriented x3 cranial nerves II through XII intact, no motor deficit, no abnormal balance or gait. - Labs CBC & Chem 7: 10/28/18 07:52 10/28/18 07:52 Labs: Abnormal Lab Results - Last 24 Hours (Table) 10/27/18 10/27/18 10/27/18 Range/Units 11:20 17:22 20:30 RBC (4.30-5.90) m/uL Hgb (13.0-17.5) gm/dL Hct (39.0-53.0) % MCH (25.0-35.0) pg MCHC (31.0-37.0) g/dL RDW (11.5-15.5) % Chloride (98-107) mmol/L Glucose (74-99) mg/dL POC Glucose (mg/dL) 144 H 138 H 115 H (75-99) mg/dL 10/27/18 10/28/18 10/28/18 Range/Units 23:30 05:58 07:52 RBC (4.30-5.90) m/uL Hgb (13.0-17.5) gm/dL Hct (39.0-53.0) % MCH (25.0-35.0) pg MCHC (31.0-37.0) g/dL RDW (11.5-15.5) % Chloride 112 H (98-107) mmol/L Glucose 105 H (74-99) mg/dL POC Glucose (mg/dL) 192 H 146 H (75-99) mg/dL 10/28/18 Range/Units 07:52 RBC 4.13 L (4.30-5.90) m/uL Hgb 10.0 L (13.0-17.5) gm/dL Hct 33.2 L (39.0-53.0) % MCH 24.1 L (25.0-35.0) pg MCHC 30.0 L (31.0-37.0) g/dL RDW 18.5 H (11.5-15.5) % Chloride (98-107) mmol/L Glucose (74-99) mg/dL POC Glucose (mg/dL) (75-99) mg/dL Microbiology - Last 24 Hours (Table) 10/23/18 18:45 Stool Culture - Final Stool Assessment and Plan Plan: 1 acute abdominal pain and diarrhea most likely secondary to chemotherapy or enteritis, ileus. Stool studies in progress. Consult with Dr. Lynch appreciated. Continue IV fluids and decreased total 2 75 mL per hour Flagyl has been added. Continue clear liquid diet. Continue Zofran and scopolamine patch ordered for today. Reglan added. Continue TPN. 2 acute kidney injury with dehydration secondary to profuse diarrhea. IV fluids changed to D5 0.9 with 20 mEq of KCl at 100 mL per hour. 3 metabolic acidosis secondary to diarrhea. IV fluids changed to D5 0.9 normal saline at 100 mL per hour. 4 colon cancer with metastasis: Has been on chemotherapy seen oncology on regular basis. Consult with Dr. Blas grace. 5 history of DVT of the right leg. Continue eliquis 2.5 mg twice daily 6 anemia and leukopenia: Can be combination results from chemotherapy repeat CBC daily. 7 GI prophylaxis and possible gastritis and enteritis: Patient will be on pantoprazole 40 mg daily and Zofran on as needed basis. 8 DVT prophylaxis: Patient has been on treatment for DVT with Eliquis. 9 hypokalemia, replacement. 10. Severe protein calorie malnutrition with weight loss of 40 pounds, albumin 2.7. Patient will be started on TPN CODE STATUS: Full code. Discharge plan: Return home Impression and plan of care have been directed as dictated by the signing physician. Brea Garcia nurse practitioner acting as scribe for signing physician.
[2018-10-28 11:26] LABS: Band Neutrophils % 4 %; Metamyelocytes # (M) 0.17 k/uL (0); Metamyelocytes % 3 %; Monocytes # (M) 0.66 k/uL (0-1.0); WBC 5.5 k/uL (3.8-10.6)
[2018-10-28 11:30] LABS: Eosinophils # (M) 0.11 k/uL (0-0.7); Lymphocytes # (M) 1.05 k/uL (1.0-4.8); Myelocytes # (M) 0.17 k/uL (0); Myelocytes % 3 %; Neutrophils % (M) 59 %; Nucleated Red Blood Cells 0 /100 WBC (0-0); Total Cells Counted 200
[2018-10-28 11:54] LABS: Glucose,Whole Blood 128 mg/dL (75-99)
[2018-10-28] MEDS ORDERED: POTASSIUM CHLORIDE 20 MEQ in WATER FOR INJECTION 1 100ML.BAG IVPB ONE (12:00)
[2018-10-28] MEDS: FAT EMULSION 20% 250 ML in EMPTY BAG 1 BAG IV SCH (17:17)
[2018-10-28 17:23] LABS: Glucose,Whole Blood 117 mg/dL (75-99)
--- NOTE | 2018-10-28 20:15 | XR ---
EXAMINATION TYPE: XR abdomen complete w decub DATE OF EXAM: 10/28/2018 COMPARISON: 10/23/2018 HISTORY: Abdominal distention TECHNIQUE: Supine, upright, and left side down lateral decubitus views of the abdomen are obtained. FINDINGS: There are multiple dilated loops of gas and fluid-filled large and small bowel. There is no sign of f ree air. Lung bases are clear of consolidation. There are no pathologic ossifications over the kidneys. IMPRESSION: Dilated large and small bowel increased compared to last exam and consistent with generalized ileus. No free air.
[2018-10-28] MEDS: oxyCODONE-APAP 10-325MG 1 EACH TAB PO PRN (21:46)
--- NOTE | 2018-10-28 23:05 | P.PN ---
Subjective Progress Note Date: 10/28/18 Principal diagnosis: N,V,D Pt continues to have water stool, no blood, he is having hiccups, mild confusion , his abd is progressively distending, no recent vomiting. Objective - Vital Signs Vital signs: Vital Signs Temp 97.5 F L 10/28/18 12:37 Pulse 80 10/28/18 12:37 Resp 16 10/28/18 12:37 BP 133/90 10/28/18 12:37 Pulse Ox 98 10/28/18 12:37 Intake & Output 10/27/18 10/28/18 10/28/18 18:59 06:59 18:59 Intake Total 1000 2439 748.333 Output Total 600 Balance 1000 1839 748.333 Weight 84 kg 84 kg Intake: IV 800 600 Mvi, Adult No.4 with Vit 800 600 K 10 ml Trace (Conc-1Ml/ Dose) 1 ml Sodium Acetate 24 meq Magnesium Sulfate gm 2 gm Potassium Phosphate 30 mmol In Amino Acid 5%-D15w 1,000 ml @ 75 mls/hr IV .BY DURATION MOON Rx#: [id number] Intake, IV Titration 840 1289 148.333 Amount D5-0.9% NaCl with KCl 20 900 Meq/l 1,000 ml @ 100 mls/ hr IV .Q10H MOON Rx#: [id number] Fat Emulsion 20% 250 ml 189 In Empty Bag 1 bag @ 21 mls/hr IV DAILY@1800 MOON Rx#:[id number] Mvi, Adult No.4 with Vit 240 K 10 ml Trace (Conc-1Ml/ Dose) 1 ml Sodium Acetate 24 meq Magnesium Sulfate gm 2 gm Potassium Phosphate 30 mmol In Amino Acid 5%-D15w 1,000 ml @ 75 mls/hr IV .BY DURATION MOON Rx#: [id number] Sodium Acetate 24 meq 600 148.333 Magnesium Sulfate gm 1 gm Potassium Phosphate 15 mmol In Amino Acid 5%- D15w 1,000 ml @ 75 mls/hr IV .BY DURATION MOON Rx#: [id number] metroNIDAZOLE-NS PMX 500 200 mg In Saline 1 100ml.bag @ 100 mls/hr IVPB Q8H MOON Rx#:[id number] Oral 160 350 Output: Emesis 600 Other: Voiding Method Diaper Toilet Toilet Incontinent # Voids 3 1 # Bowel Movements 4 - Constitutional General appearance: Present: disheveled, mild distress, thin - EENT Eyes: Present: anicteric sclerae ENT: Present: hearing grossly normal, normal oropharynx - Respiratory Respiratory: bilateral: CTA (weak inspiratory effort) - Cardiovascular Heart sounds: normal: S1, S2 - Peripheral edema leg Peripheral Edema: bilateral: Trace - Gastrointestinal Gastrointestinal Comment(s): hypoactive BS, high pitched General gastrointestinal: Present: distended - Integumentary Integumentary: Present: pale - Musculoskeletal Musculoskeletal: Present: generalized weakness - Psychiatric Psychiatric Comment(s): drowsy, answers most questions appropriately - Labs CBC & Chem 7: 10/28/18 07:52 10/28/18 07:52 Labs: Abnormal Lab Results - Last 24 Hours (Table) 10/27/18 10/27/18 10/28/18 Range/Units 20:30 23:30 05:58 RBC (4.30-5.90) m/uL Hgb (13.0-17.5) gm/dL Hct (39.0-53.0) % MCH (25.0-35.0) pg MCHC (31.0-37.0) g/dL RDW (11.5-15.5) % Metamyelocytes # (Man) (0) k/uL Myelocytes # (Manual) (0) k/uL Chloride (98-107) mmol/L Glucose (74-99) mg/dL POC Glucose (mg/dL) 115 H 192 H 146 H (75-99) mg/dL 10/28/18 10/28/18 10/28/18 Range/Units 07:52 07:52 11:52 RBC 4.13 L (4.30-5.90) m/uL Hgb 10.0 L (13.0-17.5) gm/dL Hct 33.2 L (39.0-53.0) % MCH 24.1 L (25.0-35.0) pg MCHC 30.0 L (31.0-37.0) g/dL RDW 18.5 H (11.5-15.5) % Metamyelocytes # (Man) 0.17 H (0) k/uL Myelocytes # (Manual) 0.17 H (0) k/uL Chloride 112 H (98-107) mmol/L Glucose 105 H (74-99) mg/dL POC Glucose (mg/dL) 128 H (75-99) mg/dL 10/28/18 Range/Units 17:21 RBC (4.30-5.90) m/uL Hgb (13.0-17.5) gm/dL Hct (39.0-53.0) % MCH (25.0-35.0) pg MCHC (31.0-37.0) g/dL RDW (11.5-15.5) % Metamyelocytes # (Man) (0) k/uL Myelocytes # (Manual) (0) k/uL Chloride (98-107) mmol/L Glucose (74-99) mg/dL POC Glucose (mg/dL) 117 H (75-99) mg/dL Microbiology - Last 24 Hours (Table) 10/23/18 18:45 Stool Culture - Final Stool Assessment and Plan (1) Colon adenocarcinoma Narrative/Plan: Concern is for tumor growth on current treatment regimen. Imaging is highly suspicious and the size of the tumor is increased (PET being compared to a CT report). Spent 45 min with pt and discussing scans, palliative intent of treatment and trying to define realistic goals for treatment. All questions answered to the best of my ability. Will continue to follow up and work on clarifying goals of care.. Current Visit: Yes Status: Chronic Priority: High Code(s): C18.9 - MALIGNANT NEOPLASM OF COLON, UNSPECIFIED SNOMED Code(s): 603741230 (2) Nausea & vomiting Current Visit: Yes Status: Resolved Code(s): R11.2 - NAUSEA WITH VOMITING, UNSPECIFIED SNOMED Code(s): 10148100 (3) Partial small bowel obstruction Narrative/Plan: Surgery is following, abd xray ordered due to increasing distension Current Visit: Yes Status: Acute Priority: High Code(s): K56.600 - PARTIAL INTESTINAL OBSTRUCTION, UNSPECIFIED TO CAUSE SNOMED Code(s): 864505338 Time with Patient: Greater than 30 (45 min spent>50% counseling and coordinating care)
[2018-10-28 23:57] LABS: Glucose,Whole Blood 125 mg/dL (75-99)
[2018-10-29] MEDS: INSULIN ASPART (NovoLOG) 100 UNIT/ML VIAL SQ SCH ×4 (00:30→17:13)
[2018-10-29] MEDS: oxyCODONE-APAP 10-325MG 1 EACH TAB PO PRN (02:58)
[2018-10-29] MEDS: metroNIDAZOLE-NS PMX 500 MG in SALINE 1 100ML.BAG IVPB SCH ×3 (03:00→20:06)
[2018-10-29 06:29] LABS: Glucose,Whole Blood 127 mg/dL (75-99)
[2018-10-29 09:03] LABS: Anion Gap 9 mmol/L; Blood Urea Nitrogen 19 mg/dL (9-20); Calcium 8.2 mg/dL (8.4-10.2); Carbon Dioxide 22 mmol/L (22-30); Chloride 108 mmol/L (98-107); Glucose 122 mg/dL (74-99); Magnesium 2.2 mg/dL (1.6-2.3); Phosphorus 3.5 mg/dL (2.5-4.5); Sodium 139 mmol/L (137-145)
[2018-10-29] MEDS: PANTOPRAZOLE 40 MG/10 ML VIAL IV SCH (09:03)
[2018-10-29] MEDS: APIXABAN 2.5 MG TABLET PO SCH ×2 (09:03→21:45)
[2018-10-29] MEDS: LOPERAMIDE 2 MG CAP PO SCH ×4 (09:03→21:45)
[2018-10-29] MEDS ORDERED: POTASSIUM CHLORIDE 20 MEQ in WATER FOR INJECTION 1 100ML.BAG IVPB STA (10:37)
--- NOTE | 2018-10-29 11:55 | P.PN ---
Subjective Progress Note Date: 10/29/18 57-year-old male of Dr. Russ patient with past medical history of stage III colon cancer has been on chemotherapy has metastasis to the spine. Patient seen Dr. Tariq on regular basis. Has not felt well in the last 4-5 days developed to have generalized weakness fatigue not been able template to walk developed to have significant abdominal pain with nausea and vomiting not able to keep any food or fluid down symptoms become much worse lately patient is normally having diarrhea since his colectomy but lately has been more constipated and no bowel movement last 48 hours. Ended up coming to the emergency apartment at [facility] where was seen and evaluated he was in acute kidney injury with mild leukopenia and mild anemia and mild dehydration. CT of the abdomen showed partial bowel obstruction versus enteritis also had multiple bladder stone. Patient was hospitalized continue hydration no NG tube needed this point we'll consult general surgery and consult oncology continue conservative management next 24 hours if continued to have nausea vomiting and worsening x-ray might require an NG tube with decompression and possible intervention. 3/1: Patient has had liquid stools and specimen will be sent for C. difficile toxin. Patient has history of C. difficile colitis proximal than 2 years ago. He has had incontinence of stool. His abdomen remains a little sore. He is currently nothing by mouth and will advance his diet to clear liquids for lunch. X-rays of the abdomen will be done. Flagyl IV will be added. He also states that he did not sleep well last night due to frequent awakenings.. Patient has been seen by Dr. Lynch and he does not believe patient is obstructed and excessive diarrhea may be secondary to chemotherapy or enteritis. No plans for NG tube. Agrees with clear liquid diet. 3/2: The patient is continuing to have frequent watery stools. He is on a clear liquid diet and had one episode of emesis yesterday. Nausea has resolved this morning. He complains of generalized abdominal pain, no cramps. C. difficile toxin came back negative. Plan to continue clear liquid diet today. Abdominal x-ray from yesterday did show distended gas filled loops of large and small bowel consistent with intestinal ileus. No free air. White count has dropped to 1.3, hemoglobin 9.0, platelet count 153. Sodium 138, potassium 3.8, chloride 111 and CO2 18 down from 20 of yesterday. Creatinine 1.19. Stool for lactoferrin was in positive. Stool culture in progress. IV fluids will be changed to D5 0.9 and 100 mL/h due to acidosis. Patient is followed by general surgery, Dr. Lynch and Dr. Odonnell from oncology. CEA ordered. Patient is plan for chemotherapy as an outpatient once this condition resolves. 10/25: Patient has been afebrile, heart rate running in the 60s to 80s, blood pressure 119/82, pulse ox 99% on room air. Stool culture is pending. He co ntinues to have loose stool but foul odor has resolved. He has has had multiple emesis and scopolamine patch has been added. Patient is continued on clear liquid diet only. Potassium will be replaced and added to his IV fluids. 10/26: Patient is complaining of ongoing vomiting. He states he is able to keep and occasional water down but that's it. Dr. Lynch added Reglan and he is also on Zofran and scopolamine patch. He states the diarrhea is slowing his last bowel movement was yesterday. No lower extremity edema. Patient is 4 days since admission without food. Patient will be started on TPN. 10/27: Patient states that he had a lot of vomiting yesterday evening but none this morning. He continues to have diarrhea which is chronic for him. He has been able to keep down small amounts of water and juan antonio flower. Patient was started on TPN yesterday. He continues to have hiccups that come and go. Patient has been afebrile, blood pressure 130/78, pulse ox 97% on room air, heart rate running in the 60s. Sodium 147, potassium 3.8, chloride 116, CO2 24, BUN 16 and creatinine 0.93. Blood sugar running between 09/14/1945. Magnesium is 2.3, phosphorus 1.8. 6: Patient states that he is feeling better today but did have vomiting this morning. He continues to have diarrhea. He actually states that the diarrhea is thought to be a little bit worse from yesterday. He is on a clear liquid diet which will not be advanced. White count 5.6, hemoglobin 10, platelet count 287, creatinine 0.74, chloride 112. Capillary blood glucose running between 105 and 192. He is feeling a little short of breath today and one dose of IV Lasix 20 mg ordered and IV fluids/TPN to be decreased to 75 mL per hour total. 10/29: The patient denies having any vomiting. He continues to have frequent diarrhea. He is willing to try a chopped diet today. He continues to have hiccups. He states he is feeling a little bit better today. Potassium will be replaced. He has been afebrile, blood pressure 160/83, heart rate running in the 60s to 90s, pulse ox 98% on room air. Review of Systems CONSTITUTIONAL: Denies fever, denies chills EYES: No icterus sclerae, no conjunctivitis. EARS, NOSE, MOUTH, THROAT, and FACE: No sore throat, lymphadenopathy, carotid bruits or deformity. RESPIRATORY: Reports SOB no cough or wheezes. CARDIOVASCULAR: No CP, Palpitation, PND, Orthopnea, or angina. GASTROINTESTINAL: Positive abdominal pain, denies nausea denies vomiting, re ports distention reports diarrhea. GENITOURINARY: Negative for Hematuria or UTI, no kidney stones. INTEGUMENT/BREAST: Negative for any muscular injury with mild osteoarthritis. HEMATOLOGIC/LYMPHATIC: Negative for bleed or purpura. MUSCULOSKELTAL: Negative for Myalgia or arthralgia. NEURLOGICAL: No LOC, Sz or syncope, blurred vision dizziness or abnormality. BEHAVIORAL/PSYCH: Negative. ENDOCRINE: Negative. Objective - Vital Signs Vital signs: Vital Signs Temp 98.1 F 10/29/18 03:58 Pulse 69 10/29/18 03:58 Resp 18 10/29/18 03:58 BP 116/82 10/29/18 03:58 Pulse Ox 99 10/29/18 03:58 Intake & Output 10/28/18 10/29/18 10/29/18 18:59 06:59 18:59 Intake Total 877.444 2825 Balance 573.258 6998 Weight 84 kg 84.6 kg Intake: IV 600 306 Mvi, Adult No.4 with Vit 600 306 K 10 ml Trace (Conc-1Ml/ Dose) 1 ml Sodium Acetate 24 meq Magnesium Sulfate gm 2 gm Potassium Phosphate 30 mmol In Amino Acid 5%-D15w 1,000 ml @ 75 mls/hr IV .BY DURATION [facility] Rx#: [id number] Intake, IV Titration 148.333 636 Amount D5-0.9% NaCl with KCl 20 21 Meq/l 1,000 ml @ 100 mls/ hr IV .Q10H [facility] Rx#: [id number] Fat Emulsion 20% 250 ml 210 In Empty Bag 1 bag @ 21 mls/hr IV DAILY@1800 [facility] Rx#:[id number] Mvi, Adult No.4 with Vit 205 K 10 ml Trace (Conc-1Ml/ Dose) 1 ml Sodium Acetate 24 meq Magnesium Sulfate gm 2 gm Potassium Phosphate 30 mmol In Amino Acid 5%-D15w 1,000 ml @ 75 mls/hr IV .BY DURATION [facility] Rx#: [id number] Sodium Acetate 24 meq 148.333 Magnesium Sulfate gm 1 gm Potassium Phosphate 15 mmol In Amino Acid 5%- D15w 1,000 ml @ 75 mls/hr IV .BY DURATION [facility] Rx#: [id number] metroNIDAZOLE-NS PMX 500 200 mg In Saline 1 100ml.bag @ 100 mls/hr IVPB Q8H [facility] Rx#:[id number] Oral 520 Other: Voiding Method Toilet Toilet # Voids 2 # Bowel Movements 1 - Exam This is a 57-year-old male. He is in recliner and appears to be comfortable today. Neck HEENT: Supple, no lymphadenopathy, no thyroid enlargement, no carotid bruits. Lungs: Clear to auscultation without crackles or wheezes no rhonchi, no deformity. Chest Wall: Chest wall normal expansion with deep inspiration no tenderness and no deformity was found on exam, no costochondral pain or discomfort. Heart: Regular rate and rhythm, S1, S2 normal, no murmur, rub or gallop. Back: Symmetric, no curvature, ROM normal, no CVA tenderness. Abdomen: Soft with bloating slight tenderness in the mid abdominal region area with no rebound or rigidity. Extremities: Extremities normal, atraumatic, no cyanosis or edema. Pulses: 2+ and symmetric. Skin: Skin color, texture, tugor normal, no rashes or lesions. Neurologic: Alert oriented x3 cranial nerves II through XII intact, no motor deficit, no abnormal balance or gait. - Labs CBC & Chem 7: 10/28/18 07:52 10/29/18 07:44 Labs: Abnormal Lab Results - Last 24 Hours (Table) 03/06/19 03/06/19 03/06/19 Range/Units 07:52 11:52 17:21 Metamyelocytes # (Man) 0.17 H (0) k/uL Myelocytes # (Manual) 0.17 H (0) k/uL Potassium (3.5-5.1) mmol/L Chloride (98-107) mmol/L Glucose (74-99) mg/dL POC Glucose (mg/dL) 128 H 117 H (75-99) mg/dL Calcium (8.4-10.2) mg/dL 10/28/18 10/29/18 10/29/18 Range/Units 23:56 06:16 07:44 Metamyelocytes # (Man) (0) k/uL Myelocytes # (Manual) (0) k/uL Potassium 3.0 L (3.5-5.1) mmol/L Chloride 108 H (98-107) mmol/L Glucose 122 H (74-99) mg/dL POC Glucose (mg/dL) 125 H 127 H (75-99) mg/dL Calcium 8.2 L (8.4-10.2) mg/dL Assessment and Plan Plan: 1 acute abdominal pain and diarrhea most likely secondary to chemotherapy or enteritis, ileus. Stool studies in progress. Consult with Dr. Lynch appreciated. Continue IV fluids and decreased total 2 75 mL per hour Flagyl has been added. Advance diet to chopped. Continue Zofran and scopolamine patch ordered for today. Reglan added. Continue TPN. 2 acute kidney injury with dehydration secondary to profuse diarrhea. IV fluids changed to D5 0.9 with 20 mEq of KCl at 100 mL per hour. 3 metabolic acidosis secondary to diarrhea. IV fluids changed to D5 0.9 normal saline at 100 mL per hour. 4 colon cancer with metastasis: Has been on chemotherapy seen oncology on regular basis. Consult with Dr. Odonnell appreciated. 5 history of DVT of the right leg. Continue eliquis 2.5 mg twice daily 6 anemia and leukopenia: Can be combination results from chemotherapy repeat CBC daily. 7 GI prophylaxis and possible gastritis and enteritis: Patient will be on pantoprazole 40 mg daily and Zofran on as needed basis. 8 DVT prophylaxis: Patient has been on treatment for DVT with Eliquis. 9 hypokalemia, replacement. 10. Severe protein calorie malnutrition with weight loss of 40 pounds, albumin 2.7. Patient will be started on TPN CODE STATUS: Full code. Discharge plan: Return home Impression and plan of care have been directed as dictated by the signing physician. Brea Garcia nurse practitioner acting as scribe for signing physician.
[2018-10-29 12:15] LABS: Glucose,Whole Blood 105 mg/dL (75-99)
[2018-10-29] MEDS: ONDANSETRON 4 MG/2 ML VIAL IVP PRN ×2 (14:40→23:07)
[2018-10-29] MEDS: MORPHINE SULFATE 4 MG/ML SYRINGE IV PRN ×3 (14:40→23:07)
--- NOTE | 2018-10-29 16:15 | P.PN ---
Subjective Progress Note Date: 10/29/18 Principal diagnosis: N,V,D Pt continues to have water stool, no blood, abd is less distended, pain is controlled mostly. Objective - Vital Signs Vital signs: Vital Signs Temp 98.5 F 10/29/18 13:00 Pulse 84 10/29/18 13:00 Resp 16 10/29/18 13:00 BP 100/70 10/29/18 13:00 Pulse Ox 98 10/29/18 13:00 Intake & Output 10/28/18 10/29/18 10/29/18 18:59 06:59 18:59 Intake Total 438.963 8709 800 Balance 041.703 1192 800 Weight 84 kg 84.6 kg Intake: IV 600 306 600 Mvi, Adult No.4 with Vit 600 306 600 K 10 ml Trace (Conc-1Ml/ Dose) 1 ml Sodium Acetate 24 meq Magnesium Sulfate gm 2 gm Potassium Phosphate 30 mmol In Amino Acid 5%-D15w 1,000 ml @ 75 mls/hr IV .BY DURATION [facility] Rx#: [id number] Intake, IV Titration 148.333 636 200 Amount D5-0.9% NaCl with KCl 20 21 Meq/l 1,000 ml @ 100 mls/ hr IV .Q10H [facility] Rx#: [id number] Fat Emulsion 20% 250 ml 210 In Empty Bag 1 bag @ 21 mls/hr IV DAILY@1800 [facility] Rx#:[id number] Mvi, Adult No.4 with Vit 205 K 10 ml Trace (Conc-1Ml/ Dose) 1 ml Sodium Acetate 24 meq Magnesium Sulfate gm 2 gm Potassium Phosphate 30 mmol In Amino Acid 5%-D15w 1,000 ml @ 75 mls/hr IV .BY DURATION [facility] Rx#: [id number] Potassium Chloride 20 meq 100 In Water For Injection 1 100ml.bag @ 50 mls/hr IVPB ONCE [facility] Rx#: [id number] Sodium Acetate 24 meq 148.333 Magnesium Sulfate gm 1 gm Potassium Phosphate 15 mmol In Amino Acid 5%- D15w 1,000 ml @ 75 mls/hr IV .BY DURATION [facility] Rx#: [id number] metroNIDAZOLE-NS PMX 500 200 100 mg In Saline 1 100ml.bag @ 100 mls/hr IVPB Q8H [facility] Rx#:[id number] Oral 520 Other: Voiding Method Toilet Toilet Toilet # Voids 2 # Bowel Movements 1 4 - Constitutional Constitutional Comment(s): frail, muscle wasting General appearance: Present: thin - Respiratory Respiratory: - Cardiovascular Details: S1,S2 - Gastrointestinal Gastrointestinal Comment(s): less distended then yesterday, softer, hypoactive BS - Integumentary Integumentary: Present: pale - Musculoskeletal Musculoskeletal: Present: generalized weakness - Psychiatric Psychiatric: Present: A&O x's 3, appropriate affect, intact judgment & insight - Labs CBC & Chem 7: 10/28/18 07:52 10/29/18 07:44 Labs: Abnormal Lab Results - Last 24 Hours (Table) 10/28/18 10/28/18 10/29/18 Range/Units 17:21 23:56 06:16 Potassium (3.5-5.1) mmol/L Chloride (98-107) mmol/L Glucose (74-99) mg/dL POC Glucose (mg/dL) 117 H 125 H 127 H (75-99) mg/dL Calcium (8.4-10.2) mg/dL 10/29/18 10/29/18 Range/Units 07:44 12:14 Potassium 3.0 L (3.5-5.1) mmol/L Chloride 108 H (98-107) mmol/L Glucose 122 H (74-99) mg/dL POC Glucose (mg/dL) 105 H (75-99) mg/dL Calcium 8.2 L (8.4-10.2) mg/dL - Imaging and Cardiology Abdominal x-ray: report reviewed Assessment and Plan (1) Colon adenocarcinoma Narrative/Plan: Pt and will f/u with Dr. Tariq for discussion about further treatment and clarify goals of care Current Visit: Yes Status: Chronic Priority: High Code(s): C18.9 - MALIGNANT NEOPLASM OF COLON, UNSPECIFIED SNOMED Code(s): 671826511 (2) Nausea & vomiting Current Visit: Yes Status: Resolved Code(s): R11.2 - NAUSEA WITH VOMITING, UNSPECIFIED SNOMED Code(s): 88792005 (3) Partial small bowel obstruction Narrative/Plan: There is a chronic component. Abd exam is improved today. Current Visit: Yes Status: Chronic Priority: High Code(s): K56.600 - PARTIAL INTESTINAL OBSTRUCTION, UNSPECIFIED TO CAUSE SNOMED Code(s): 580989929 Plan: Cont TPN Pt will use antidiarrheas and pain meds PRN as he states "I know my body".
[2018-10-29 17:08] LABS: Glucose,Whole Blood 117 mg/dL (75-99)
[2018-10-29] MEDS: FAT EMULSION 20% 250 ML in EMPTY BAG 1 BAG IV SCH (17:19)
[2018-10-29 20:47] LABS: Glucose,Whole Blood 98 mg/dL (75-99)
[2018-10-30] MEDS: INSULIN ASPART (NovoLOG) 100 UNIT/ML VIAL SQ SCH ×4 (01:21→18:25)
[2018-10-30] MEDS: MORPHINE SULFATE 4 MG/ML SYRINGE IV PRN ×5 (02:45→21:58)
[2018-10-30] MEDS: metroNIDAZOLE-NS PMX 500 MG in SALINE 1 100ML.BAG IVPB SCH ×3 (03:33→21:57)
[2018-10-30 06:26] LABS: Glucose,Whole Blood 119 mg/dL (75-99)
[2018-10-30 07:58] LABS: Anion Gap 9 mmol/L; Blood Urea Nitrogen 21 mg/dL (9-20); Calcium 8.3 mg/dL (8.4-10.2); Carbon Dioxide 21 mmol/L (22-30); Chloride 106 mmol/L (98-107); Glucose 119 mg/dL (74-99); Magnesium 2.4 mg/dL (1.6-2.3); Phosphorus 4.4 mg/dL (2.5-4.5); Potassium 3.9 mmol/L (3.5-5.1); Sodium 136 mmol/L (137-145)
[2018-10-30] MEDS: LOPERAMIDE 2 MG CAP PO SCH ×4 (08:57→23:20)
[2018-10-30] MEDS: APIXABAN 2.5 MG TABLET PO SCH ×2 (08:57→21:58)
[2018-10-30] MEDS: PANTOPRAZOLE 40 MG/10 ML VIAL IV SCH (08:57)
[2018-10-30] MEDS: oxyCODONE-APAP 10-325MG 1 EACH TAB PO PRN ×2 (09:49→19:29)
[2018-10-30 12:59] LABS: Glucose,Whole Blood 128 mg/dL (75-99)
--- NOTE | 2018-10-30 13:13 | P.PN ---
Subjective Progress Note Date: 10/30/18 57-year-old male of Dr. Russ patient with past medical history of stage III colon cancer has been on chemotherapy has metastasis to the spine. Patient seen Dr. Tariq on regular basis. Has not felt well in the last 4-5 days developed to have generalized weakness fatigue not been able template to walk developed to have significant abdominal pain with nausea and vomiting not able to keep any food or fluid down symptoms become much worse lately patient is normally having diarrhea since his colectomy but lately has been more constipated and no bowel movement last 48 hours. Ended up coming to the emergency apartment at [facility] where was seen and evaluated he was in acute kidney injury with mild leukopenia and mild anemia and mild dehydration. CT of the abdomen showed partial bowel obstruction versus enteritis also had multiple bladder stone. Patient was hospitalized continue hydration no NG tube needed this point we'll consult general surgery and consult oncology continue conservative management next 24 hours if continued to have nausea vomiting and worsening x-ray might require an NG tube with decompression and possible intervention. 3/1: Patient has had liquid stools and specimen will be sent for C. difficile toxin. Patient has history of C. difficile colitis proximal than 2 years ago. He has had incontinence of stool. His abdomen remains a little sore. He is currently nothing by mouth and will advance his diet to clear liquids for lunch. X-rays of the abdomen will be done. Flagyl IV will be added. He also states that he did not sleep well last night due to frequent awakenings.. Patient has been seen by Dr. Lynch and he does not believe patient is obstructed and excessive diarrhea may be secondary to chemotherapy or enteritis. No plans for NG tube. Agrees with clear liquid diet. 3/2: The patient is continuing to have frequent watery stools. He is on a clear liquid diet and had one episode of emesis yesterday. Nausea has resolved this morning. He complains of generalized abdominal pain, no cramps. C. difficile toxin came back negative. Plan to continue clear liquid diet today. Abdominal x-ray from yesterday did show distended gas filled loops of large and small bowel consistent with intestinal ileus. No free air. White count has dropped to 1.3, hemoglobin 9.0, platelet count 153. Sodium 138, potassium 3.8, chloride 111 and CO2 18 down from 20 of yesterday. Creatinine 1.19. Stool for lactoferrin was in positive. Stool culture in progress. IV fluids will be changed to D5 0.9 and 100 mL/h due to acidosis. Patient is followed by general surgery, Dr. Lynch and Dr. Odonnell from oncology. CEA ordered. Patient is plan for chemotherapy as an outpatient once this condition resolves. 10/25: Patient has been afebrile, heart rate running in the 60s to 80s, blood pressure 119/82, pulse ox 99% on room air. Stool culture is pending. He co ntinues to have loose stool but foul odor has resolved. He has has had multiple emesis and scopolamine patch has been added. Patient is continued on clear liquid diet only. Potassium will be replaced and added to his IV fluids. 10/26: Patient is complaining of ongoing vomiting. He states he is able to keep and occasional water down but that's it. Dr. Lynch added Reglan and he is also on Zofran and scopolamine patch. He states the diarrhea is slowing his last bowel movement was yesterday. No lower extremity edema. Patient is 4 days since admission without food. Patient will be started on TPN. 10/27: Patient states that he had a lot of vomiting yesterday evening but none this morning. He continues to have diarrhea which is chronic for him. He has been able to keep down small amounts of water and juan antonio flower. Patient was started on TPN yesterday. He continues to have hiccups that come and go. Patient has been afebrile, blood pressure 130/78, pulse ox 97% on room air, heart rate running in the 60s. Sodium 147, potassium 3.8, chloride 116, CO2 24, BUN 16 and creatinine 0.93. Blood sugar running between 09/14/1945. Magnesium is 2.3, phosphorus 1.8. 6: Patient states that he is feeling better today but did have vomiting this morning. He continues to have diarrhea. He actually states that the diarrhea is thought to be a little bit worse from yesterday. He is on a clear liquid diet which will not be advanced. White count 5.6, hemoglobin 10, platelet count 287, creatinine 0.74, chloride 112. Capillary blood glucose running between 105 and 192. He is feeling a little short of breath today and one dose of IV Lasix 20 mg ordered and IV fluids/TPN to be decreased to 75 mL per hour total. 10/29: The patient denies having any vomiting. He continues to have frequent diarrhea. He is willing to try a chopped diet today. He continues to have hiccups. He states he is feeling a little bit better today. Potassium will be replaced. He has been afebrile, blood pressure 160/83, heart rate running in the 60s to 90s, pulse ox 98% on room air. 10/30: Patient is afebrile, heart rate running from 60s to 80s, blood pressure 102/66, pulse ox 90% on room air. Sodium 136, potassium 3.9, chloride 106, CO2 21, BUN 21, creatinine 0.9. Patient states he had some gagging but no vomiting. He continues to have diarrhea. He denies any shortness of breath. He does state that in general he is feeling better. Abdominal x-ray from yesterday shows dilated large and small bowel increased compared to last exam consistent with generalized ileus. No free air. Anticipate he will be ready for discharge in the next 24-48 hours. Review of Systems CONSTITUTIONAL: Denies fever, denies chills EYES: No icterus sclerae, no conjunctivitis. EARS, NOSE, MOUTH, THROAT, and FACE: No sore throat, lymphadenopathy, carotid bruits or deformity. RESPIRATORY: Reports SOB no cough or wheezes. CARDIOVASCULAR: No CP, Palpitation, PND, Orthopnea, or angina. GASTROINTESTINAL: Positive abdominal pain, reports nausea denies vomiting, reports distention reports diarrhea. GENITOURINARY: Negative for Hematuria or UTI, no kidney stones. INTEGUMENT/BREAST: Negative for any muscular injury with mild osteoarthritis. HEMATOLOGIC/LYMPHATIC: Negative for bleed or purpura. MUSCULOSKELTAL: Negative for Myalgia or arthralgia. NEURLOGICAL: No LOC, Sz or syncope, blurred vision dizziness or abnormality. BEHAVIORAL/PSYCH: Negative. ENDOCRINE: Negative. Objective - Vital Signs Vital signs: Vital Signs Temp 98.7 F 10/30/18 05:00 Pulse 89 10/30/18 05:00 Resp 16 10/30/18 05:00 BP 102/66 10/30/18 05:00 Pulse Ox 98 10/30/18 05:00 Intake & Output 10/29/18 10/30/18 10/30/18 18:59 06:59 18:59 Intake Total 800 1160 Balance 800 1160 Weight 83.5 kg Intake: IV 600 220 Mvi, Adult No.4 with Vit 600 220 K 10 ml Trace (Conc-1Ml/ Dose) 1 ml Sodium Acetate 24 meq Magnesium Sulfate gm 2 gm Potassium Phosphate 30 mmol In Amino Acid 5%-D15w 1,000 ml @ 75 mls/hr IV .BY DURATION MOON Rx#: [id number] Intake, IV Titration 200 100 Amount Potassium Chloride 20 meq 100 In Water For Injection 1 100ml.bag @ 50 mls/hr IVPB ONCE STA Rx#: [id number] metroNIDAZOLE-NS PMX 500 100 100 mg In Saline 1 100ml.bag @ 100 mls/hr IVPB Q8H MOON Rx#:[id number] Oral 840 Other: Voiding Method Toilet # Voids 2 # Bowel Movements 4 3 - Exam This is a 57-year-old male. He is in bed and appears to be comfortable today. Neck HEENT: Supple, no lymphadenopathy, no thyroid enlargement, no carotid bruits. Lungs: Clear to auscultation without crackles or wheezes no rhonchi, no deformity. Chest Wall: Chest wall normal expansion with deep inspiration no tenderness and no deformity was found on exam, no costochondral pain or discomfort. Heart: Regular rate and rhythm, S1, S2 normal, no murmur, rub or gallop. Back: Symmetric, no curvature, ROM normal, no CVA tenderness. Abdomen: Soft with bloating slight tenderness in the mid abdominal region area with no rebound or rigidity. Extremities: Extremities normal, atraumatic, no cyanosis or edema. Pulses: 2+ and symmetric. Skin: Skin color, texture, tugor normal, no rashes or lesions. Neurologic: Alert oriented x3 cranial nerves II through XII intact, no motor deficit, no abnormal balance or gait. - Labs CBC & Chem 7: 10/28/18 07:52 10/30/18 07:09 Labs: Abnormal Lab Results - Last 24 Hours (Table) 10/29/18 10/29/18 10/29/18 Range/Units 12:14 15:24 17:07 Sodium (137-145) mmol/L Carbon Dioxide (22-30) mmol/L BUN (9-20) mg/dL Glucose (74-99) mg/dL POC Glucose (mg/dL) 105 H 117 H (75-99) mg/dL Calcium 8.3 L (8.4-10.2) mg/dL Magnesium (1.6-2.3) mg/dL 10/30/18 10/30/18 Range/Units 06:23 07:09 Sodium 136 L (137-145) mmol/L Carbon Dioxide 21 L (22-30) mmol/L BUN 21 H (9-20) mg/dL Glucose 119 H (74-99) mg/dL POC Glucose (mg/dL) 119 H (75-99) mg/dL Calcium 8.3 L (8.4-10.2) mg/dL Magnesium 2.4 H (1.6-2.3) mg/dL Assessment and Plan Plan: 1 acute abdominal pain and diarrhea most likely secondary to chemotherapy or enteritis, ileus. Stool studies in progress. Consult with Dr. Lynch appreciated. Continue IV fluids and decreased total 2 75 mL per hour Flagyl has been added. Advance diet to chopped. Continue Zofran and scopolamine patch ordered for today. Reglan added. Continue TPN. 2 acute kidney injury with dehydration secondary to profuse diarrhea. IV fluids changed to D5 0.9 with 20 mEq of KCl at 100 mL per hour. 3 metabolic acidosis secondary to diarrhea. IV fluids changed to D5 0.9 normal saline at 100 mL per hour. 4 colon cancer with metastasis: Has been on chemotherapy seen oncology on regular basis. Consult with Dr. Odonnell appreciated. 5 history of DVT of the right leg. Continue eliquis 2.5 mg twice daily 6 anemia and leukopenia: Can be combination results from chemotherapy repeat CBC daily. 7 GI prophylaxis and possible gastritis and enteritis: Patient will be on pantoprazole 40 mg daily and Zofran on as needed basis. 8 DVT prophylaxis: Patient has been on treatment for DVT with Eliquis. 9 hypokalemia, replacement. 10. Severe protein calorie malnutrition with weight loss of 40 pounds, albumin 2.7. Patient will be started on TPN CODE STATUS: Full code. Discharge plan: Return home in the next 24-48 hours Impression and plan of care have been directed as dictated by the signing physician. Brea Garcia nurse practitioner acting as scribe for signing physician.
[2018-10-30] MEDS: SALT AND SODA MOUTHWASH 1,000 ML PO SCH ×2 (13:38→17:24)
[2018-10-30] MEDS: 1: MVI, ADULT NO.4 WITH VIT K 10 ML, TRACE (CONC-1ML/DOSE) 1 ML, SODIUM ACETATE 30 MEQ, IV SCH ×6 (17:47)
[2018-10-30] MEDS: FAT EMULSION 20% 250 ML in EMPTY BAG 1 BAG IV SCH (17:48)
[2018-10-30 17:49] LABS: Glucose,Whole Blood 107 mg/dL (75-99)
[2018-10-30] MEDS: ONDANSETRON 4 MG/2 ML VIAL IVP PRN (17:59)
[2018-10-30] MEDS ORDERED: LORazepam 2 MG/ML INJ IV PRN (20:58)
[2018-10-30 23:48] LABS: Glucose,Whole Blood 125 mg/dL (75-99)
[2018-10-30 23:50] LABS: Glucose,Whole Blood 108 mg/dL (75-99)
--- NOTE | 2018-10-31 00:54 | P.PN ---
Subjective Progress Note Date: 10/30/18 Principal diagnosis: persistent nausea diarrhea vomitting unable to tolerate po intake, refuses ng tube. hiccups and persistent nausea Objective - Vital Signs Vital signs: Vital Signs Temp 98.1 F 10/30/18 22:11 Pulse 102 H 10/30/18 22:11 Resp 16 10/30/18 22:11 BP 110/76 10/30/18 22:11 Pulse Ox 97 10/30/18 22:11 Intake & Output 10/30/18 10/30/18 10/31/18 06:59 18:59 06:59 Intake Total 1160 960 240 Balance 1160 960 240 Weight 83.5 kg 83.5 kg Intake: IV 220 Mvi, Adult No.4 with Vit 220 K 10 ml Trace (Conc-1Ml/ Dose) 1 ml Sodium Acetate 24 meq Magnesium Sulfate gm 2 gm Potassium Phosphate 30 mmol In Amino Acid 5%-D15w 1,000 ml @ 75 mls/hr IV .BY DURATION MOON Rx#: [id number] Intake, IV Titration 100 Amount metroNIDAZOLE-NS PMX 500 100 mg In Saline 1 100ml.bag @ 100 mls/hr IVPB Q8H MOON Rx#:[id number] Oral 840 960 240 Other: Voiding Method Diaper # Voids 2 2 1 # Bowel Movements 3 3 1 - Exam Constitutional Constitutional Comment(s): frail, muscle wasting General appearance: Present: thin - Respiratory Respiratory: - Cardiovascular Details: S1,S2 - Gastrointestinal Gastrointestinal Comment(s): less distended then yesterday, softer, hypoactive BS - Integumentary Integumentary: Present: pale - Musculoskeletal Musculoskeletal: Present: generalized weakness - Psychiatric Psychiatric: Present: A&O x's 3, appropriate affect, intact judgment & insight - Labs CBC & Chem 7: 10/28/18 07:52 10/30/18 07:09 Labs: Abnormal Lab Results - Last 24 Hours (Table) 10/30/18 10/30/18 10/30/18 Range/Units 06:23 07:09 12:57 Sodium 136 L (137-145) mmol/L Carbon Dioxide 21 L (22-30) mmol/L BUN 21 H (9-20) mg/dL Glucose 119 H (74-99) mg/dL POC Glucose (mg/dL) 119 H 128 H (75-99) mg/dL Calcium 8.3 L (8.4-10.2) mg/dL Magnesium 2.4 H (1.6-2.3) mg/dL 10/30/18 10/30/18 10/30/18 Range/Units 17:48 23:47 23:48 Sodium (137-145) mmol/L Carbon Dioxide (22-30) mmol/L BUN (9-20) mg/dL Glucose (74-99) mg/dL POC Glucose (mg/dL) 107 H 125 H 108 H (75-99) mg/dL Calcium (8.4-10.2) mg/dL Magnesium (1.6-2.3) mg/dL Assessment and Plan Plan: Imaging and Cardiology Abdominal x-ray: report reviewed Assessment and Plan (1) Colon adenocarcinoma - Follow-up with Dr. Tariq after resolution of situation as outpatient (2) Nausea & vomiting - worsening, continues to refuse NG - Unable to tolerate po intake - Continue TPN, antiemetics and Pain meds PRN - Add 0.5mg ativan prn (3) Partial small bowel obstruction - There is a chronic component. Physician Attes: I have discussed the completed history and physical and devloped the above impression and plan, agree with dictation. Dictated as a scribe
[2018-10-31] MEDS: metroNIDAZOLE-NS PMX 500 MG in SALINE 1 100ML.BAG IVPB SCH ×3 (05:21→20:06)
[2018-10-31] MEDS: MORPHINE SULFATE 4 MG/ML SYRINGE IV PRN (05:33)
[2018-10-31 05:59] LABS: Glucose,Whole Blood 156 mg/dL (75-99)
[2018-10-31 05:59] LABS: Glucose,Whole Blood 93 mg/dL (75-99)
[2018-10-31] MEDS: INSULIN ASPART (NovoLOG) 100 UNIT/ML VIAL SQ SCH ×5 (06:01→23:41)
[2018-10-31] MEDS: LOPERAMIDE 2 MG CAP PO SCH ×4 (08:47→20:06)
[2018-10-31 09:34] LABS: Anion Gap 11 mmol/L; Blood Urea Nitrogen 25 mg/dL (9-20); Carbon Dioxide 24 mmol/L (22-30); Chloride 100 mmol/L (98-107); Glucose 106 mg/dL (74-99); Magnesium 2.4 mg/dL (1.6-2.3); Phosphorus 3.2 mg/dL (2.5-4.5); Sodium 135 mmol/L (137-145)
[2018-10-31] MEDS: 1: MVI, ADULT NO.4 WITH VIT K 10 ML, TRACE (CONC-1ML/DOSE) 1 ML, SODIUM ACETATE 30 MEQ, IV SCH ×18 (09:37→20:51)
[2018-10-31] MEDS: MORPHINE SULFATE 4 MG/ML SYRINGE IVP PRN ×5 (09:40→22:36)
[2018-10-31] MEDS: PANTOPRAZOLE 40 MG/10 ML VIAL IV SCH (09:42)
[2018-10-31] MEDS: SALT AND SODA MOUTHWASH 1,000 ML PO SCH ×3 (09:42→15:19)
[2018-10-31 12:23] LABS: Glucose,Whole Blood 128 mg/dL (75-99)
--- NOTE | 2018-10-31 12:36 | P.PN ---
Subjective Progress Note Date: 10/31/18 57-year-old male of Dr. Russ patient with past medical history of stage III colon cancer has been on chemotherapy has metastasis to the spine. Patient seen Dr. Tariq on regular basis. Has not felt well in the last 4-5 days developed to have generalized weakness fatigue not been able template to walk developed to have significant abdominal pain with nausea and vomiting not able to keep any food or fluid down symptoms become much worse lately patient is normally having diarrhea since his colectomy but lately has been more constipated and no bowel movement last 48 hours. Ended up coming to the emergency apartment at [facility] where was seen and evaluated he was in acute kidney injury with mild leukopenia and mild anemia and mild dehydration. CT of the abdomen showed partial bowel obstruction versus enteritis also had multiple bladder stone. Patient was hospitalized continue hydration no NG tube needed this point we'll consult general surgery and consult oncology continue conservative management next 24 hours if continued to have nausea vomiting and worsening x-ray might require an NG tube with decompression and possible intervention. 3/1: Patient has had liquid stools and specimen will be sent for C. difficile toxin. Patient has history of C. difficile colitis proximal than 2 years ago. He has had incontinence of stool. His abdomen remains a little sore. He is currently nothing by mouth and will advance his diet to clear liquids for lunch. X-rays of the abdomen will be done. Flagyl IV will be added. He also states that he did not sleep well last night due to frequent awakenings.. Patient has been seen by Dr. Lynch and he does not believe patient is obstructed and excessive diarrhea may be secondary to chemotherapy or enteritis. No plans for NG tube. Agrees with clear liquid diet. 3/2: The patient is continuing to have frequent watery stools. He is on a clear liquid diet and had one episode of emesis yesterday. Nausea has resolved this morning. He complains of generalized abdominal pain, no cramps. C. difficile toxin came back negative. Plan to continue clear liquid diet today. Abdominal x-ray from yesterday did show distended gas filled loops of large and small bowel consistent with intestinal ileus. No free air. White count has dropped to 1.3, hemoglobin 9.0, platelet count 153. Sodium 138, potassium 3.8, chloride 111 and CO2 18 down from 20 of yesterday. Creatinine 1.19. Stool for lactoferrin was in positive. Stool culture in progress. IV fluids will be changed to D5 0.9 and 100 mL/h due to acidosis. Patient is followed by general surgery, Dr. Lynch and Dr. Odonnell from oncology. CEA ordered. Patient is plan for chemotherapy as an outpatient once this condition resolves. 10/25: Patient has been afebrile, heart rate running in the 60s to 80s, blood pressure 119/82, pulse ox 99% on room air. Stool culture is pending. He co ntinues to have loose stool but foul odor has resolved. He has has had multiple emesis and scopolamine patch has been added. Patient is continued on clear liquid diet only. Potassium will be replaced and added to his IV fluids. 10/26: Patient is complaining of ongoing vomiting. He states he is able to keep and occasional water down but that's it. Dr. Lynch added Reglan and he is also on Zofran and scopolamine patch. He states the diarrhea is slowing his last bowel movement was yesterday. No lower extremity edema. Patient is 4 days since admission without food. Patient will be started on TPN. 10/27: Patient states that he had a lot of vomiting yesterday evening but none this morning. He continues to have diarrhea which is chronic for him. He has been able to keep down small amounts of water and juan antonio flower. Patient was started on TPN yesterday. He continues to have hiccups that come and go. Patient has been afebrile, blood pressure 130/78, pulse ox 97% on room air, heart rate running in the 60s. Sodium 147, potassium 3.8, chloride 116, CO2 24, BUN 16 and creatinine 0.93. Blood sugar running between 09/14/1945. Magnesium is 2.3, phosphorus 1.8. 6: Patient states that he is feeling better today but did have vomiting this morning. He continues to have diarrhea. He actually states that the diarrhea is thought to be a little bit worse from yesterday. He is on a clear liquid diet which will not be advanced. White count 5.6, hemoglobin 10, platelet count 287, creatinine 0.74, chloride 112. Capillary blood glucose running between 105 and 192. He is feeling a little short of breath today and one dose of IV Lasix 20 mg ordered and IV fluids/TPN to be decreased to 75 mL per hour total. 10/29: The patient denies having any vomiting. He continues to have frequent diarrhea. He is willing to try a chopped diet today. He continues to have hiccups. He states he is feeling a little bit better today. Potassium will be replaced. He has been afebrile, blood pressure 160/83, heart rate running in the 60s to 90s, pulse ox 98% on room air. 10/30: Patient is afebrile, heart rate running from 60s to 80s, blood pressure 102/66, pulse ox 90% on room air. Sodium 136, potassium 3.9, chloride 106, CO2 21, BUN 21, creatinine 0.9. Patient states he had some gagging but no vomiting. He continues to have diarrhea. He denies any shortness of breath. He does state that in general he is feeling better. Abdominal x-ray from yesterday shows dilated large and small bowel increased compared to last exam consistent with generalized ileus. No free air. Anticipate he will be ready for discharge in the next 24-48 hours. 10/31: Patient has been afebrile, heart rate running in the 70s to 100, blood pressure 104/70, pulse ox 90% on room air. Sodium 135, potassium 4.0, chloride 100, CO2 24, BUN 25 and creatinine 0.85. Blood sugars running 90s to low 100s. Magnesium 2.4 and phosphorus 3.2. Patient remains on TPN. Patient continues to have nausea and refuses to try and take anything oral. Patient refuses NG tube. Patient has refused PT and OT and is only getting out of bed occasionally. Abdomen remains tender but better since admission. He continues to have diarrhea 3-4 times per day and the last one was this morning. Patient states he has not been sleeping. Will add in Remeron tonight and plan to start weaning TPN tomorrow. Oncology has added and Ativan as needed. Patient was not open to hospice care when discussed with oncology. Review of Systems CONSTITUTIONAL: Denies fever, denies chills EYES: No icterus sclerae, no conjunctivitis. EARS, NOSE, MOUTH, THROAT, and FACE: No sore throat, lymphadenopathy, carotid bruits or deformity. RESPIRATORY: Reports SOB no cough or wheezes. CARDIOVASCULAR: No CP, Palpitation, PND, Orthopnea, or angina. GASTROINTESTINAL: Positive abdominal pain, reports nausea denies vomiting, reports distention reports diarrhea. Reports decreased appetite GENITOURINARY: Negative for Hematuria or UTI, no kidney stones. INTEGUMENT/BREAST: Negative for any muscular injury with mild osteoarthritis. HEMATOLOGIC/LYMPHATIC: Negative for bleed or purpura. MUSCULOSKELTAL: Negative for Myalgia or arthralgia. NEURLOGICAL: No LOC, Sz or syncope, blurred vision dizziness or abnormality. BEHAVIORAL/PSYCH: Negative. ENDOCRINE: Negative. Objective - Vital Signs Vital signs: Vital Signs Temp 99.3 F 10/31/18 04:46 Pulse 100 10/31/18 04:46 Resp 16 10/31/18 04:46 BP 104/70 10/31/18 04:46 Pulse Ox 98 10/31/18 04:46 Intake & Output 10/30/18 10/31/18 10/31/18 18:59 06:59 18:59 Intake Total 960 1204 1033 Output Total 400 Balance 117 350 5919 Weight 83.5 kg 83 kg Intake: IV 675 Mvi, Adult No.4 with Vit 675 K 10 ml Trace (Conc-1Ml/ Dose) 1 ml Sodium Acetate 24 meq Magnesium Sulfate gm 2 gm Potassium Phosphate 30 mmol In Amino Acid 5%-D15w 1,000 ml @ 75 mls/hr IV .BY DURATION MOON Rx#: [id number] Intake, IV Titration 289 1033 Amount Fat Emulsion 20% 250 ml 189 In Empty Bag 1 bag @ 21 mls/hr IV DAILY@1800 MOON Rx#:[id number] Mvi, Adult No.4 with Vit 1033 K 10 ml Trace (Conc-1Ml/ Dose) 1 ml Sodium Acetate 30 meq Magnesium Sulfate gm 1 gm Potassium Phosphate 15 mmol In Amino Acid 5%-D15w 1,000 ml @ 75 mls/hr IV .BY DURATION MOON Rx#: [id number] metroNIDAZOLE-NS PMX 500 100 mg In Saline 1 100ml.bag @ 100 mls/hr IVPB Q8H MOON Rx#:[id number] Oral 960 240 Output: Emesis 400 Other: Voiding Method Diaper Diaper Incontinent # Voids 2 2 1 # Bowel Movements 3 1 - Exam This is a 57-year-old male. He is in bed and appears to be comfortable. Neck HEENT: Supple, no lymphadenopathy, no thyroid enlargement, no carotid bruits. Lungs: Clear to auscultation without crackles or wheezes no rhonchi, no deformity. Chest Wall: Chest wall normal expansion with deep inspiration no tenderness and no deformity was found on exam, no costochondral pain or discomfort. Heart: Regular rate and rhythm, S1, S2 normal, no murmur, rub or gallop. Back: Symmetric, no curvature, ROM normal, no CVA tenderness. Abdomen: Soft with bloating slight tenderness in the mid abdominal region area with no rebound or rigidity. Extremities: Extremities normal, atraumatic, no cyanosis or edema. Pulses: 2+ and symmetric. Skin: Skin color, texture, tugor normal, no rashes or lesions. Neurologic: Alert oriented x3 cranial nerves II through XII intact, no motor deficit, no abnormal balance or gait. - Labs CBC & Chem 7: 10/28/18 07:52 10/31/18 08:15 Labs: Abnormal Lab Results - Last 24 Hours (Table) 10/30/18 10/30/18 10/30/18 Range/Units 12:57 17:48 23:47 Sodium (137-145) mmol/L BUN (9-20) mg/dL Glucose (74-99) mg/dL POC Glucose (mg/dL) 128 H 107 H 125 H (75-99) mg/dL Calcium (8.4-10.2) mg/dL Magnesium (1.6-2.3) mg/dL 10/30/18 10/31/18 10/31/18 Range/Units 23:48 05:56 08:15 Sodium 135 L (137-145) mmol/L BUN 25 H (9-20) mg/dL Glucose 106 H (74-99) mg/dL POC Glucose (mg/dL) 108 H 156 H (75-99) mg/dL Calcium 8.0 L (8.4-10.2) mg/dL Magnesium 2.4 H (1.6-2.3) mg/dL Assessment and Plan Plan: 1 acute abdominal pain and diarrhea most likely secondary to chemotherapy or enteritis, ileus. Stool studies in progress. Consult with Dr. Syed grace. Continue IV fluids and decreased total 2 75 mL per hour Flagyl has been added. Advance diet to chopped. Continue Zofran and scopolamine patch ordered for today. Reglan added. Continue TPN and plan to start weaning tomorrow. 2 acute kidney injury with dehydration secondary to profuse diarrhea. IV fluids changed to D5 0.9 with 20 mEq of KCl at 100 mL per hour. 3 metabolic acidosis secondary to diarrhea. IV fluids. 4 colon cancer with metastasis: Has been on chemotherapy seen oncology on regular basis. Consult with Dr. Odonnell appreciated. Patient was not open to hospice care when discussed with oncology. 5 history of DVT of the right leg. Continue eliquis 2.5 mg twice daily 6 anemia and leukopenia: Can be combination results from chemotherapy repeat CBC daily. 7 GI prophylaxis and possible gastritis and enteritis: Patient will be on pantoprazole 40 mg daily and Zofran on as needed basis. 8 DVT prophylaxis: Patient has been on treatment for DVT with Eliquis. 9 hypokalemia, replacement. 10. Severe protein calorie malnutrition with weight loss of 40 pounds, albumin 2.7. Patient will be started on TPN CODE STATUS: Full code. Discharge plan: Return home in the next 48 hours Impression and plan of care have been directed as dictated by the signing physician. Brea Garcia nurse practitioner acting as scribe for signing physician.
[2018-10-31] MEDS: SCOPOLAMINE 1.5MG/72HR PATCH TRANSDERM SCH (13:03)
[2018-10-31] MEDS: APIXABAN 2.5 MG TABLET PO SCH ×2 (13:15→20:52)
[2018-10-31] MEDS: ONDANSETRON 4 MG/2 ML VIAL IVP PRN (13:18)
--- NOTE | 2018-10-31 14:25 | XR ---
EXAMINATION TYPE: XR abdomen 2V DATE OF EXAM: 10/31/2018 1:58 PM CLINICAL HISTORY: Abdominal pain and distention. TECHNIQUE: Single supine KUB image of the abdomen is obtained. COMPARISON: 10/28/2018 FINDINGS: There are dilated loops of small and large bowel with differential air-fluid levels. These are similar in degree to the prior of 10/28/2018. No pneumoperitoneum at this time. Liver is elongated. Osseous structures are grossly intact. IMPRESSION: Numerous loops of dilated large and small bowel again demonstrate differential air-fluid levels. Although findings are similar in degree to the prior of 10/28/2018 obstruction is suspected.
[2018-10-31] MEDS: FAT EMULSION 20% 250 ML in EMPTY BAG 1 BAG IV SCH (15:54)
[2018-10-31 17:43] LABS: Glucose,Whole Blood 123 mg/dL (75-99)
[2018-10-31] MEDS: MIRTAZAPINE 15 MG TAB PO SCH (18:14)
[2018-10-31 20:12] LABS: Glucose,Whole Blood 116 mg/dL (75-99)
[2018-10-31 23:41] LABS: Glucose,Whole Blood 114 mg/dL (75-99)
[2018-11-01] MEDS: MORPHINE SULFATE 4 MG/ML SYRINGE IVP PRN ×6 (01:27→21:55)
[2018-11-01] MEDS: metroNIDAZOLE-NS PMX 500 MG in SALINE 1 100ML.BAG IVPB SCH (04:14)
[2018-11-01 05:45] LABS: Glucose,Whole Blood 127 mg/dL (75-99)
[2018-11-01] MEDS: INSULIN ASPART (NovoLOG) 100 UNIT/ML VIAL SQ SCH ×3 (05:48→17:34)
[2018-11-01 07:28] LABS: Anion Gap 11 mmol/L; Blood Urea Nitrogen 26 mg/dL (9-20); Carbon Dioxide 24 mmol/L (22-30); Chloride 99 mmol/L (98-107); Glucose 113 mg/dL (74-99); Magnesium 2.4 mg/dL (1.6-2.3); Phosphorus 3.6 mg/dL (2.5-4.5); Potassium 3.5 mmol/L (3.5-5.1); Sodium 134 mmol/L (137-145)
[2018-11-01] MEDS: PANTOPRAZOLE 40 MG/10 ML VIAL IV SCH (07:28)
[2018-11-01] MEDS: APIXABAN 2.5 MG TABLET PO SCH ×2 (07:30→20:53)
[2018-11-01] MEDS: ONDANSETRON 4 MG/2 ML VIAL IVP PRN (07:37)
[2018-11-01] MEDS: SALT AND SODA MOUTHWASH 1,000 ML PO SCH ×3 (07:47→15:30)
[2018-11-01] MEDS: LOPERAMIDE 2 MG CAP PO SCH ×4 (07:48→20:48)
--- NOTE | 2018-11-01 09:59 | P.PN ---
Subjective Progress Note Date: 11/01/18 The patient is overall weak, but states that he feels a bit better today. Nausea is improved, and he was able to tolerate some ice cream for breakfast. He has about 5-6 loose bowel movements now, which he says is close to his baseline. No fever/chills/obvious bleeding. Objective - Vital Signs Vital signs: Vital Signs Temp 98.4 F 11/01/18 03:44 Pulse 94 11/01/18 03:44 Resp 16 11/01/18 03:44 BP 124/82 11/01/18 03:44 Pulse Ox 98 11/01/18 03:44 Intake & Output 10/31/18 11/01/18 11/01/18 17:59 06:59 18:59 Intake Total Balance Weight Intake: IV Mvi, Adult No.4 with Vit K 10 ml Trace (Conc-1Ml/ Dose) 1 ml Sodium Acetate 24 meq Magnesium Sulfate gm 2 gm Potassium Phosphate 30 mmol In Amino Acid 5%-D15w 1,000 ml @ 75 mls/hr IV .BY DURATION MOON Rx#: [id number] Intake, IV Titration Amount Fat Emulsion 20% 250 ml In Empty Bag 1 bag @ 21 mls/hr IV DAILY@1800 MOON Rx#:[id number] Mvi, Adult No.4 with Vit K 10 ml Trace (Conc-1Ml/ Dose) 1 ml Sodium Acetate 30 meq Magnesium Sulfate gm 1 gm Potassium Phosphate 15 mmol In Amino Acid 5%-D15w 1,000 ml @ 75 mls/hr IV .BY DURATION MOON Rx#: [id number] Other: Voiding Method # Voids 1 # Bowel Movements - Constitutional General appearance: Present: no acute distress - EENT Eyes: Present: EOMI ENT: Present: hearing grossly normal, normal oropharynx - Respiratory Respiratory: bilateral: CTA - Cardiovascular Rhythm: regular - Gastrointestinal Gastrointestinal Comment(s): Ill-defined mass like fullness in the right lower quadrant General gastrointestinal: Present: distended, normal bowel sounds Localized gastrointestinal: tender: RLQ - Neurologic Neurologic: Present: CNII-XII intact - Musculoskeletal Musculoskeletal: Present: generalized weakness, strength equal bilaterally - Psychiatric Psychiatric: Present: A&O x's 3, appropriate affect - Labs CBC & Chem 7: 10/28/18 07:52 11/01/18 06:30 Labs: Abnormal Lab Results - Last 24 Hours (Table) 03/09/19 03/09/19 03/09/19 Range/Units 08:15 12:22 17:41 Sodium 135 L (137-145) mmol/L BUN 25 H (9-20) mg/dL Glucose 106 H (74-99) mg/dL POC Glucose (mg/dL) 128 H 123 H (75-99) mg/dL Calcium 8.0 L (8.4-10.2) mg/dL Magnesium 2.4 H (1.6-2.3) mg/dL 10/31/18 10/31/18 11/01/18 Range/Units 19:51 23:39 05:41 Sodium (137-145) mmol/L BUN (9-20) mg/dL Glucose (74-99) mg/dL POC Glucose (mg/dL) 116 H 114 H 127 H (75-99) mg/dL Calcium (8.4-10.2) mg/dL Magnesium (1.6-2.3) mg/dL 11/01/18 Range/Units 06:30 Sodium 134 L (137-145) mmol/L BUN 26 H (9-20) mg/dL Glucose 113 H (74-99) mg/dL POC Glucose (mg/dL) (75-99) mg/dL Calcium 8.0 L (8.4-10.2) mg/dL Magnesium 2.4 H (1.6-2.3) mg/dL Assessment and Plan (1) Partial small bowel obstruction Narrative/Plan: According to Dr. Tariq's notes, the patient's imaging and shown chronic medication of small bowel loops previously. However clinical picture during this admission was definitely suggestive of partial SBO and/or ileus. The patient has been managed conservatively by surgery. Due to persistence of symptoms, NG tube was offered but the patient refused. However, today he states that he is feeling better and was able to tolerate small amounts by mouth. He also states that diarrhea appears to be returning to baseline. Therefore, from our standpoint he is okay to discharge home whenever felt to be appropriate for the same by the admitting service and surgery. Current Visit: Yes Status: Chronic Priority: High Code(s): K56.600 - PARTI AL INTESTINAL OBSTRUCTION, UNSPECIFIED TO CAUSE SNOMED Code(s): 886587677 (2) Colon cancer Narrative/Plan: The patient is status post 4 cycles, receiving chemotherapy in early 09/12. CEA level was only mildly elevated at 6.8. However her computed tomography scan done this admission, mentioned the size of the dominant right-sided abdominal pelvic mass to be 10 x 10 x 6.8 cm, whereas on the PET CT in 08/11 it was noted to be 6.8 cm in maximal dimension. It was discussed with the patient that this is concerning for progression, though not definitive, as the study during this admission was a noncontrast CAT scan, and the prior study was a PET scan. The patient has anyway decided to hold off on his current chemotherapy for now, till he can get stronger. He was advised to follow-up with Dr. Tariq in the office however , postdischarge to discuss imaging results and further plans. If the patient is determined to have progression, then change of regimen will need to be considered, if he continues to desire active treatment Current Visit: Yes Status: Acute Priority: High Code(s): C18.9 - MALIGNANT NEOPLASM OF COLON, UNSPECIFIED SNOMED Code(s): 066458652 (3) Dehydration Narrative/Plan: Improved with ongoing IV hydration and TPN. Creatinine has returned to normal Current Visit: Yes Status: Acute Code(s): E86.0 - DEHYDRATION SNOMED Code( s): 79628325 (4) Bicytopenia Narrative/Plan: Hemoglobin is mildly low at 10, which is acceptable. WBC and platelets have returned to normal Current Visit: Yes Status: Acute Code(s): D75.89 - OTHER SPECIFIED DISEASES OF BLOOD AND BLOOD-FORMING ORGANS SNOMED Code(s): 909612321
[2018-11-01] MEDS ORDERED: POTASSIUM CHLORIDE 20 MEQ in WATER FOR INJECTION 1 100ML.BAG IVPB ONE (11:00)
--- NOTE | 2018-11-01 11:35 | P.PN ---
Subjective Progress Note Date: 11/01/18 patient seen and examined at bedside. States that he is feeling better today. he states that he has had a few bites of potatoes this morning. He so far has That down without any nausea or emesis. He states that his bowel movements have decreased to approximately 45 and a day. He states that this is normal. Objective - Vital Signs Vital signs: Vital Signs Temp 98.4 F 11/01/18 03:44 Pulse 94 11/01/18 03:44 Resp 16 11/01/18 03:44 BP 124/82 11/01/18 03:44 Pulse Ox 98 11/01/18 03:44 Intake & Output 10/31/18 11/01/18 11/01/18 17:59 06:59 18:59 Intake Total Balance Weight Intake: IV Mvi, Adult No.4 with Vit K 10 ml Trace (Conc-1Ml/ Dose) 1 ml Sodium Acetate 24 meq Magnesium Sulfate gm 2 gm Potassium Phosphate 30 mmol In Amino Acid 5%-D15w 1,000 ml @ 75 mls/hr IV .BY DURATION MOON Rx#: [id number] Intake, IV Titration Amount Fat Emulsion 20% 250 ml In Empty Bag 1 bag @ 21 mls/hr IV DAILY@1800 MOON Rx#:[id number] Mvi, Adult No.4 with Vit K 10 ml Trace (Conc-1Ml/ Dose) 1 ml Sodium Acetate 30 meq Magnesium Sulfate gm 1 gm Potassium Phosphate 15 mmol In Amino Acid 5%-D15w 1,000 ml @ 75 mls/hr IV .BY DURATION MOON Rx#: [id number] Other: Voiding Method # Voids 1 # Bowel Movements - Constitutional General appearance: Present: cooperative, no acute distress - EENT Eyes: Present: PERRLA - Respiratory Details: no difficulty with respiration - Gastrointestinal Gastrointestinal Comment(s): soft, moderate distention, mild tenderness to palpation, no rebound, no guarding - Musculoskeletal Musculoskeletal: Present: generalized weakness - Psychiatric Psychiatric: Present: A&O x's 3 - Labs CBC & Chem 7: 10/28/18 07:52 11/01/18 06:30 Labs: Abnormal Lab Results - Last 24 Hours (Table) 10/31/18 10/31/18 10/31/18 Range/Units 12:22 17:41 19:51 Sodium (137-145) mmol/L BUN (9-20) mg/dL Glucose (74-99) mg/dL POC Glucose (mg/dL) 128 H 123 H 116 H (75-99) mg/dL Calcium (8.4-10.2) mg/dL Magnesium (1.6-2.3) mg/dL 10/31/18 11/01/18 11/01/18 Range/Units 23:39 05:41 06:30 Sodium 134 L (137-145) mmol/L BUN 26 H (9-20) mg/dL Glucose 113 H (74-99) mg/dL POC Glucose (mg/dL) 114 H 127 H (75-99) mg/dL Calcium 8.0 L (8.4-10.2) mg/dL Magnesium 2.4 H (1.6-2.3) mg/dL Assessment and Plan (1) Colon cancer Narrative/Plan: 57-year-old male with continued ileus/nausea and vomiting - I had a very long discussion with the patient and the patient's . Over the past 2 days, patient appears to have been improving. The patient's is very concerned about impending discharge due to the patient's continued nausea and emesis and inability to the keep down any significant amount of food. She also states that the patient has had hiccups for 6 days. I did review the most current imaging findings with the patient and did explain that continued bowel distention can prolong nausea episodes and emesis. The patient continues to refuse nasogastric tube, however was inquiring more about the process of nasogastric tube placement. He states he has had nasogastric tubes placed twice in the past and has required a heavy amount of sedation. He did state that the last physician to place an NG tube did refuse to place additional nasogastric tubes. He states he is a very difficult nasogastric tube placement. The patient did also mention the possibility of gastric tube placement for feeding. Due to the continued bowel distention, G-tube placement would not be appropriate at this time. The patient's has requested discontinuing Flagyl due to possibility of Flagyl causing additional nausea and vomiting. She has also requested discontinuing scopolamine due to possibility of mental status changes. At this point, I did tell the patient and the patient's that I would review notes from previous nasogastric tube placement that was performed at [facility], due to the fact that the patient was taken to endoscopy for placement. Continue with TPN and electrolyte management. Currently, no plan for surgical intervention. Current Visit: Yes Status: Acute Priority: High Code(s): C18.9 - MALIGNANT NEOPLASM OF COLON, UNSPECIFIED SNOMED Code(s): 176185443
[2018-11-01] MEDS: 1: MVI, ADULT NO.4 WITH VIT K 10 ML, TRACE (CONC-1ML/DOSE) 1 ML, SODIUM ACETATE 30 MEQ, IV SCH ×6 (11:45)
[2018-11-01 12:29] LABS: Glucose,Whole Blood 124 mg/dL (75-99)
[2018-11-01] MEDS ORDERED: POTASSIUM CHLORIDE 10 MEQ in WATER FOR INJECTION 1 100ML.BAG IVPB ONE (13:00)
[2018-11-01 14:01] LABS: INR 1.3 (<1.2); Prothrombin Time 13.7 sec (9.0-12.0)
--- NOTE | 2018-11-01 14:29 | P.PN ---
Subjective 57-year-old male of Dr. Russ patient with past medical history of stage III colon cancer has been on chemotherapy has metastasis to the spine. Patient seen Dr. Tariq on regular basis. Has not felt well in the last 4-5 days developed to have generalized weakness fatigue not been able template to walk developed to have significant abdominal pain with nausea and vomiting not able to keep any food or fluid down symptoms become much worse lately patient is normally having diarrhea since his colectomy but lately has been more constipated and no bowel movement last 48 hours. Ended up coming to the emergency apartment at [facility] where was seen and evaluated he was in acute kidney injury with mild leukopenia and mild anemia and mild dehy dration. CT of the abdomen showed partial bowel obstruction versus enteritis also had multiple bladder stone. Patient was hospitalized continue hydration no NG tube needed this point we'll consult general surgery and consult oncology continue conservative management next 24 hours if continued to have nausea vomiting and worsening x-ray might require an NG tube with decompression and possible intervention. 3/1: Patient has had liquid stools and specimen will be sent for C. difficile toxin. Patient has history of C. difficile colitis proximal than 2 years ago. He has had incontinence of stool. His abdomen remains a little sore. He is currently nothing by mouth and will advance his diet to clear liquids for lunch. X-rays of the abdomen will be done. Flagyl IV will be added. He also states that he did not sleep well last night due to frequent awakenings.. Patient has been seen by Dr. Lynch and he does not believe patient is obstructed and excessive diarrhea may be secondary to chemotherapy or enteritis. No plans for NG tube. Agrees with clear liquid diet. 3/2: The patient is continuing to have frequent watery stools. He is on a clear liquid diet and had one episode of emesis yesterday. Nausea has resolved this morning. He complains of generalized abdominal pain, no cramps. C. difficile toxin came back negative. Plan to continue clear liquid diet today. Abdominal x-ray from yesterday did show distended gas filled loops of large and small bowel consistent with intestinal ileus. No free air. White count has dropped to 1.3, hemoglobin 9.0, platelet count 153. Sodium 138, potassium 3.8, chloride 111 and CO2 18 down from 20 of yesterday. Creatinine 1.19. Stool for lactoferrin was in positive. Stool culture in progress. IV fluids will be changed to D5 0.9 and 100 mL/h due to acidosis. Patient is followed by general surgery, Dr. Lynch and Dr. Odonnell from oncology. CEA ordered. Patient is plan for chemotherapy as an outpatient once this condition resolves. 10/25: Patient has been afebrile, heart rate running in the 60s to 80s, blood pressure 119/82, pulse ox 99% on room air. Stool culture is pending. He continues to have loose stool but foul odor has resolved. He has has had multiple emesis and scopolamine patch has been added. Patient is continued on clear liquid diet only. Potassium will be replaced and added to his IV fluids. 10/26: Patient is complaining of ongoing vomiting. He states he is able to keep and occasional water down but that's it. Dr. Lynch added Reglan and he is also on Zofran and scopolamine patch. He states the diarrhea is slowing his last bowel movement was yesterday. No lower extremity edema. Patient is 4 days since admission without food. Patient will be started on TPN. 10/27: Patient states that he had a lot of vomiting yesterday evening but none this morning. He continues to have diarrhea which is chronic for him. He has been able to keep down small amounts of water and juan antonio flower. Patient was sta rted on TPN yesterday. He continues to have hiccups that come and go. Patient has been afebrile, blood pressure 130/78, pulse ox 97% on room air, heart rate running in the 60s. Sodium 147, potassium 3.8, chloride 116, CO2 24, BUN 16 and creatinine 0.93. Blood sugar running between 09/14/1945. Magnesium is 2.3, phosphorus 1.8. 6: Patient states that he is feeling better today but did have vomiting this morning. He continues to have diarrhea. He actually states that the diarrhea is thought to be a little bit worse from yesterday. He is on a clear liquid diet which will not be advanced. White count 5.6, hemoglobin 10, platelet count 287, creatinine 0.74, chloride 112. Capillary blood glucose running between 105 and 192. He is feeling a little short of breath today and one dose of IV Lasix 20 mg ordered and IV fluids/TPN to be decreased to 75 mL per hour total. 10/29: The patient denies having any vomiting. He continues to have frequent diarrhea. He is willing to try a chopped diet today. He continues to have hiccups. He states he is feeling a little bit better today. Potassium will be replaced. He has been afebrile, blood pressure 160/83, heart rate running in the 60s to 90s, pulse ox 98% on room air. 10/30: Patient is afebrile, heart rate running from 60s to 80s, blood pressure 102/66, pulse ox 90% on room air. Sodium 136, potassium 3.9, chloride 106, CO2 21, BUN 21, creatinine 0.9. Patient states he had some gagging but no vomiting. He continues to have diarrhea. He denies any shortness of breath. He does state that in general he is feeling better. Abdominal x-ray from yesterday shows dilated large and small bowel increased compared to last exam consistent with generalized ileus. No free air. Anticipate he will be ready for discharge in the next 24-48 hours. 10/31: Patient has been afebrile, heart rate running in the 70s to 100, blood pressure 104/70, pulse ox 90% on room air. Sodium 135, potassium 4.0, chloride 100, CO2 24, BUN 25 and creatinine 0.85. Blood sugars running 90s to low 100s. Magnesium 2.4 and phosphorus 3.2. Patient remains on TPN. Patient continues to have nausea and refuses to try and take anything oral. Patient refuses NG tube. Patient has refused PT and OT and is only getting out of bed occasionally. Abdomen remains tender but better since admission. He continues to have diarrhea 3-4 times per day and the last one was this morning. Patient states he has not been sleeping. Will add in Remeron tonight and plan to start weaning TPN tomorrow. Oncology has added and Ativan as needed. Patient was not open to hospice care when discussed with oncology. 11/01: Patient evaluated today. He was able to tolerate his breakfast and lunch. He denies any nausea or vomiting. Family wanted an NG placed to decompress the stomach, it seems he needed sedation to have it placed in the past. Discussed that if he is tolerating PO foods and fluids, will not need NG placement. Did discuss the possibility of having PEG placed for nutrition. Patient was agreeable to this but would like to speak to family. He remains afebrile, blood pressure 126/86, 99% on room air, heart rate running in the 90s. Sodium 134, BUN 26, creatinine 0.85. Objective - Vital Signs Vital signs: Vital Signs Temp 98.4 F 11/01/18 03:44 Pulse 94 11/01/18 03:44 Resp 16 11/01/18 03:44 BP 124/82 11/01/18 03:44 Pulse Ox 98 11/01/18 03:44 Intake & Output 10/31/18 11/01/18 11/01/18 17:59 06:59 18:59 Intake Total Balance Weight Intake: IV Mvi, Adult No.4 with Vit K 10 ml Trace (Conc-1Ml/ Dose) 1 ml Sodium Acetate 24 meq Magnesium Sulfate gm 2 gm Potassium Phosphate 30 mmol In Amino Acid 5%-D15w 1,000 ml @ 75 mls/hr IV .BY DURATION [facility] Rx#: [id number] Intake, IV Titration Amount Fat Emulsion 20% 250 ml In Empty Bag 1 bag @ 21 mls/hr IV DAILY@1800 [facility] Rx#:[id number] Mvi, Adult No.4 with Vit K 10 ml Trace (Conc-1Ml/ Dose) 1 ml Sodium Acetate 30 meq Magnesium Sulfate gm 1 gm Potassium Phosphate 15 mmol In Amino Acid 5%-D15w 1,000 ml @ 75 mls/hr IV .BY DURATION [facility] Rx#: [id number] Other: Voiding Method # Voids 1 # Bowel Movements - Constitutional General appearance: Present: average body habitus, cooperative, no acute distress - EENT Eyes: Present: EOMI, PERRLA, normal appearance ENT: Present: hearing grossly normal, normal oropharynx - Neck Neck: Present: normal ROM. Absent: lymphadenopathy, rigidity, thyromegaly - Respiratory Respiratory: bilateral: CTA, negative: diminished, dullness, rales, rhonchi, wheezing - Cardiovascular Rhythm: regular Heart sounds: normal: S1, S2 - Gastrointestinal General gastrointestinal: Present: normal bowel sounds, soft. Absent: distended, hepatomegaly, organomegaly, tenderness - Neurologic Neurologic: Present: CNII-XII intact. Absent: focal deficits - Musculoskeletal Musculoskeletal: Present: gait normal, strength equal bilaterally - Psychiatric Psychiatric: Present: A&O x's 3, appropriate affect, intact judgment & insight - Labs CBC & Chem 7: 10/28/18 07:52 11/01/18 06:30 Labs: Abnormal Lab Results - Last 24 Hours (Table) 10/31/18 10/31/18 10/31/18 Range/Units 12:22 17:41 19:51 Sodium (137-145) mmol/L BUN (9-20) mg/dL Glucose (74-99) mg/dL POC Glucose (mg/dL) 128 H 123 H 116 H (75-99) mg/dL Calcium (8.4-10.2) mg/dL Magnesium (1.6-2.3) mg/dL 10/31/18 11/01/18 11/01/18 Range/Units 23:39 05:41 06:30 Sodium 134 L (137-145) mmol/L BUN 26 H (9-20) mg/dL Glucose 113 H (74-99) mg/dL POC Glucose (mg/dL) 114 H 127 H (75-99) mg/dL Calcium 8.0 L (8.4-10.2) mg/dL Magnesium 2.4 H (1.6-2.3) mg/dL Assessment and Plan Plan: 1 acute abdominal pain and diarrhea most likely secondary to chemotherapy or enteritis, ileus. Stool studies are negative. Consult with Dr. Lynch appreciated. Continue IV fluids, Flagyl has been discontinued. Advance diet to chopped. Continue Zofran and Reglan. TPN continued. 2 acute kidney injury with dehydration secondary to profuse diarrhea. IV fluids changed to D5 0.9 with 20 mEq of KCl at 100 mL per hour. 3 metabolic acidosis secondary to diarrhea. Continue with IV fluids. 4 colon cancer with metastasis: Has been on chemotherapy seen oncology on regular basis. Consult with Dr. Odonnell appreciated. Patient was not open to hospice care when discussed with oncology. 5 history of DVT of the right leg. Continue eliquis 2.5 mg twice daily 6 anemia and leukopenia: Can be combination results from chemotherapy repeat CBC daily. 7 GI prophylaxis and possible gastritis and enteritis: Patient will be on pantoprazole 40 mg daily and Zofran on as needed basis. 8 DVT prophylaxis: Patient has been on treatment for DVT with Eliquis. 9 hypokalemia, replacement. 10. Severe protein calorie malnutrition with weight loss of 40 pounds, albumin 2.7. Patient will be started on TPN CODE STATUS: Full code. Discharge plan: Return home in the next 48 hours The above impression and plan of care have been discussed and directed by signing physician. Mireya Paul nurse practitioner acting as scribe for signing physician.
[2018-11-01] MEDS: MIRTAZAPINE 15 MG TAB PO SCH (15:31)
[2018-11-01 17:01] LABS: Glucose,Whole Blood 95 mg/dL (75-99)
[2018-11-01] MEDS: FAT EMULSION 20% 250 ML in EMPTY BAG 1 BAG IV SCH (17:36)
[2018-11-01] MEDS: METOCLOPRAMIDE 5 MG/ML 2 ML VIAL IVP SCH (20:53)
[2018-11-02 00:09] LABS: Glucose,Whole Blood 103 mg/dL (75-99)
[2018-11-02] MEDS: INSULIN ASPART (NovoLOG) 100 UNIT/ML VIAL SQ SCH ×5 (00:28→23:36)
[2018-11-02] MEDS: MORPHINE SULFATE 4 MG/ML SYRINGE IVP PRN ×8 (00:53→23:34)
[2018-11-02] MEDS: 1: MVI, ADULT NO.4 WITH VIT K 10 ML, TRACE (CONC-1ML/DOSE) 1 ML, SODIUM ACETATE 30 MEQ, IV SCH ×12 (02:05→02:12)
[2018-11-02 05:51] LABS: Glucose,Whole Blood 129 mg/dL (75-99)
[2018-11-02] MEDS: LOPERAMIDE 2 MG CAP PO SCH ×4 (07:47→22:14)
[2018-11-02] MEDS: SALT AND SODA MOUTHWASH 1,000 ML PO SCH ×3 (07:47→17:27)
[2018-11-02] MEDS: PANTOPRAZOLE 40 MG/10 ML VIAL IV SCH (07:47)
[2018-11-02] MEDS: APIXABAN 2.5 MG TABLET PO SCH ×2 (07:47→20:29)
[2018-11-02] MEDS: METOCLOPRAMIDE 5 MG/ML 2 ML VIAL IVP SCH ×2 (07:47→20:33)
[2018-11-02 07:55] LABS: Anion Gap 8 mmol/L; Blood Urea Nitrogen 32 mg/dL (9-20); Calcium 7.9 mg/dL (8.4-10.2); Carbon Dioxide 26 mmol/L (22-30); Chloride 99 mmol/L (98-107); Glucose 123 mg/dL (74-99); Magnesium 2.4 mg/dL (1.6-2.3); Phosphorus 4.2 mg/dL (2.5-4.5); Potassium 4.2 mmol/L (3.5-5.1); Sodium 133 mmol/L (137-145)
--- NOTE | 2018-11-02 08:49 | P.PN ---
Subjective Progress Note Date: 11/02/18 Patient seen and examined at bedside. No acute events. States he tolerated lunch and dinner yesterday well. He states that his appetite is beginning to increase. He states he feels a lot better. Objective - Vital Signs Vital signs: Vital Signs Temp 98.3 F 11/02/18 04:36 Pulse 98 11/02/18 04:36 Resp 16 11/02/18 04:36 BP 108/77 11/02/18 04:36 Pulse Ox 97 11/02/18 04:36 Intake & Output 11/01/18 11/02/18 11/02/18 18:59 06:59 18:59 Intake Total 1073 Balance 1073 Weight 84.2 kg Intake: Intake, IV Titration 1033 Amount Mvi, Adult No.4 with Vit 1033 K 10 ml Trace (Conc-1Ml/ Dose) 1 ml Sodium Acetate 30 meq Magnesium Sulfate gm 1 gm Potassium Phosphate 15 mmol In Amino Acid 5%-D15w 1,000 ml @ 75 mls/hr IV .BY DURATION [facility] Rx#: [id number] Oral 40 Other: Voiding Method Diaper Diaper Incontinent Incontinent # Voids 1 4 # Bowel Movements 1 1 - Constitutional General appearance: Present: cooperative, no acute distress - Gastrointestinal Gastrointestinal Comment(s): Soft, mild distention, no rebound, no guarding, nontender - Psychiatric Psychiatric: Present: A&O x's 3 - Labs CBC & Chem 7: 10/28/18 07:52 11/02/18 07:20 Labs: Abnormal Lab Results - Last 24 Hours (Table) 11/01/18 11/01/18 11/02/18 Range/Units 12:28 13:49 00:06 PT 13.7 H (9.0-12.0) sec INR 1.3 H (<1.2) Sodium (137-145) mmol/L BUN (9-20) mg/dL Glucose (74-99) mg/dL POC Glucose (mg/dL) 124 H 103 H (75-99) mg/dL Calcium (8.4-10.2) mg/dL Magnesium (1.6-2.3) mg/dL 11/02/18 11/02/18 Range/Units 05:48 07:20 PT (9.0-12.0) sec INR (<1.2) Sodium 133 L (137-145) mmol/L BUN 32 H (9-20) mg/dL Glucose 123 H (74-99) mg/dL POC Glucose (mg/dL) 129 H (75-99) mg/dL Calcium 7.9 L (8.4-10.2) mg/dL Magnesium 2.4 H (1.6-2.3) mg/dL Assessment and Plan (1) Colon cancer Narrative/Plan: 57-year-old male with continued ileus/nausea and vomiting - After my long discussion with the patient yesterday, he appears to be much improved today. He states he feels much better. He is tolerating diet. There is no plan for nasogastric tube decompression. At this point, he can continue to advance diet as tolerated. Medical management. Current Visit: Yes Status: Acute Priority: High Code(s): C18.9 - MALIGNANT NEOPLASM OF COLON, UNSPECIFIED SNOMED Code(s): 303787207
[2018-11-02 11:30] VITALS: BMI 25.9
[2018-11-02 11:38] LABS: Glucose,Whole Blood 122 mg/dL (75-99)
--- NOTE | 2018-11-02 11:38 | P.PN ---
Subjective Progress Note Date: 11/02/18 57-year-old male of Dr. Russ patient with past medical history of stage III colon cancer has been on chemotherapy has metastasis to the spine. Patient seen Dr. Tariq on regular basis. Has not felt well in the last 4-5 days developed to have generalized weakness fatigue not been able template to walk developed to have significant abdominal pain with nausea and vomiting not able to keep any food or fluid down symptoms become much worse lately patient is normally having diarrhea since his colectomy but lately has been more constipated and no bowel movement last 48 hours. Ended up coming to the emergency apartment at [facility] where was seen and evaluated he was in acute kidney injury with mild leukopenia and mild anemia and mild dehydration. CT of the abdomen showed partial bowel obstruction versus enteritis also had multiple bladder stone. Patient was hospitalized continue hydration no NG tube needed this point we'll consult general surgery and consult oncology continue conservative management next 24 hours if continued to have nausea vomiting and worsening x-ray might require an NG tube with decompression and possible intervention. 3/1: Patient has had liquid stools and specimen will be sent for C. difficile toxin. Patient has history of C. difficile colitis proximal than 2 years ago. He has had incontinence of stool. His abdomen remains a little sore. He is currently nothing by mouth and will advance his diet to clear liquids for lunch. X-rays of the abdomen will be done. Flagyl IV will be added. He also states that he did not sleep well last night due to frequent awakenings.. Patient has been seen by Dr. Lynch and he does not believe patient is obstructed and excessive diarrhea may be secondary to chemotherapy or enteritis. No plans for NG tube. Agrees with clear liquid diet. 3/2: The patient is continuing to have frequent watery stools. He is on a clear liquid diet and had one episode of emesis yesterday. Nausea has resolved this morning. He complains of generalized abdominal pain, no cramps. C. difficile toxin came back negative. Plan to continue clear liquid diet today. Abdominal x-ray from yesterday did show distended gas filled loops of large and small bowel consistent with intestinal ileus. No free air. White count has dropped to 1.3, hemoglobin 9.0, platelet count 153. Sodium 138, potassium 3.8, chloride 111 and CO2 18 down from 20 of yesterday. Creatinine 1.19. Stool for lactoferrin was in positive. Stool culture in progress. IV fluids will be changed to D5 0.9 and 100 mL/h due to acidosis. Patient is followed by general surgery, Dr. Lynch and Dr. Odonnell from oncology. CEA ordered. Patient is plan for chemotherapy as an outpatient once this condition resolves. 10/25: Patient has been afebrile, heart rate running in the 60s to 80s, blood pressure 119/82, pulse ox 99% on room air. Stool culture is pending. He co ntinues to have loose stool but foul odor has resolved. He has has had multiple emesis and scopolamine patch has been added. Patient is continued on clear liquid diet only. Potassium will be replaced and added to his IV fluids. 10/26: Patient is complaining of ongoing vomiting. He states he is able to keep and occasional water down but that's it. Dr. Lynch added Reglan and he is also on Zofran and scopolamine patch. He states the diarrhea is slowing his last bowel movement was yesterday. No lower extremity edema. Patient is 4 days since admission without food. Patient will be started on TPN. 10/27: Patient states that he had a lot of vomiting yesterday evening but none this morning. He continues to have diarrhea which is chronic for him. He has been able to keep down small amounts of water and juan antonio flower. Patient was started on TPN yesterday. He continues to have hiccups that come and go. Patient has been afebrile, blood pressure 130/78, pulse ox 97% on room air, heart rate running in the 60s. Sodium 147, potassium 3.8, chloride 116, CO2 24, BUN 16 and creatinine 0.93. Blood sugar running between 09/14/1945. Magnesium is 2.3, phosphorus 1.8. 6: Patient states that he is feeling better today but did have vomiting this morning. He continues to have diarrhea. He actually states that the diarrhea is thought to be a little bit worse from yesterday. He is on a clear liquid diet which will not be advanced. White count 5.6, hemoglobin 10, platelet count 287, creatinine 0.74, chloride 112. Capillary blood glucose running between 105 and 192. He is feeling a little short of breath today and one dose of IV Lasix 20 mg ordered and IV fluids/TPN to be decreased to 75 mL per hour total. 10/29: The patient denies having any vomiting. He continues to have frequent diarrhea. He is willing to try a chopped diet today. He continues to have hiccups. He states he is feeling a little bit better today. Potassium will be replaced. He has been afebrile, blood pressure 160/83, heart rate running in the 60s to 90s, pulse ox 98% on room air. 10/30: Patient is afebrile, heart rate running from 60s to 80s, blood pressure 102/66, pulse ox 90% on room air. Sodium 136, potassium 3.9, chloride 106, CO2 21, BUN 21, creatinine 0.9. Patient states he had some gagging but no vomiting. He continues to have diarrhea. He denies any shortness of breath. He does state that in general he is feeling better. Abdominal x-ray from yesterday shows dilated large and small bowel increased compared to last exam consistent with generalized ileus. No free air. Anticipate he will be ready for discharge in the next 24-48 hours. 10/31: Patient has been afebrile, heart rate running in the 70s to 100, blood pressure 104/70, pulse ox 90% on room air. Sodium 135, potassium 4.0, chloride 100, CO2 24, BUN 25 and creatinine 0.85. Blood sugars running 90s to low 100s. Magnesium 2.4 and phosphorus 3.2. Patient remains on TPN. Patient continues to have nausea and refuses to try and take anything oral. Patient refuses NG tube. Patient has refused PT and OT and is only getting out of bed occasionally. Abdomen remains tender but better since admission. He continues to have diarrhea 3-4 times per day and the last one was this morning. Patient states he has not been sleeping. Will add in Remeron tonight and plan to start weaning TPN tomorrow. Oncology has added and Ativan as needed. Patient was not open to hospice care when discussed with oncology. 11/01: Patient evaluated today. He was able to tolerate his breakfast and lunch. He denies any nausea or vomiting. Family wanted an NG placed to decompress the stomach, it seems he needed sedation to have it placed in the past. Discussed that if he is tolerating PO foods and fluids, will not need NG placement. Did discuss the possibility of having PEG placed for nutrition. Patient was agreeable to this but would like to speak to family. He remains afebrile, blood pressure 126/86, 99% on room air, heart rate running in the 90s. Sodium 134, BUN 26, creatinine 0.85. 11/02: Patient intolerant meals yesterday and he is stating that appetite is beginning to increase. Patient has been refusing to take his medications. Patient states he does not feel ready to go home today. We will plan to wean off TPN and advance diet and plan for discharge tomorrow. Patient is willing to get information from hospice although he does not want a hospice patient at this point. Referral has been placed. Review of Systems CONSTITUTIONAL: Denies fever, denies chills EYES: No icterus sclerae, no conjunctivitis. EARS, NOSE, MOUTH, THROAT, and FACE: No sore throat, lymphadenopathy, carotid bruits or deformity. RESPIRATORY: Denies SOB no cough or wheezes. CARDIOVASCULAR: No CP, Palpitation, PND, Orthopnea, or angina. GASTROINTESTINAL: Positive abdominal pain, reports nausea denies vomiting, reports distention reports diarrhea. Reports decreased appetite GENITOURINARY: Negative for Hematuria or UTI, no kidney stones. INTEGUMENT/BREAST: Negative for any muscular injury with mild osteoarthritis. HEMATOLOGIC/LYMPHATIC: Negative for bleed or purpura. MUSCULOSKELTAL: Negative for Myalgia or arthralgia. NEURLOGICAL: No LOC, Sz or syncope, blurred vision dizziness or abnormality. BEHAVIORAL/PSYCH: Negative. ENDOCRINE: Negative. Objective - Vital Signs Vital signs: Vital Signs Temp 98.3 F 11/02/18 04:36 Pulse 98 11/02/18 04:36 Resp 16 11/02/18 04:36 BP 108/77 11/02/18 04:36 Pulse Ox 97 11/02/18 04:36 Intake & Output 11/01/18 11/02/18 11/02/18 18:59 06:59 18:59 Intake Total 1073 Balance 1073 Weight 84.2 kg Intake: Intake, IV Titration 1033 Amount Mvi, Adult No.4 with Vit 1033 K 10 ml Trace (Conc-1Ml/ Dose) 1 ml Sodium Acetate 30 meq Magnesium Sulfate gm 1 gm Potassium Phosphate 15 mmol In Amino Acid 5%-D15w 1,000 ml @ 75 mls/hr IV .BY DURATION [facility] Rx#: [id number] Oral 40 Other: Voiding Method Diaper Diaper Diaper Incontinent Incontinent Incontinent # Voids 1 4 # Bowel Movements 1 1 - Exam This is a 57-year-old male. He is in bed and appears to be comfortable. No acute distress is noted. Neck HEENT: Supple, no lymphadenopathy, no thyroid enlargement, no carotid bruits. Lungs: Clear to auscultation without crackles or wheezes no rhonchi, no deformity. Chest Wall: Chest wall normal expansion with deep inspiration no tenderness and no deformity was found on exam, no costochondral pain or discomfort. Heart: Regular rate and rhythm, S1, S2 normal, no murmur, rub or gallop. Back: Symmetric, no curvature, ROM normal, no CVA tenderness. Abdomen: Soft with bloating no tenderness in the mid abdominal region area with no rebound or rigidity. Extremities: Extremities normal, atraumatic, no cyanosis or edema. Pulses: 2+ and symmetric. Skin: Skin color, texture, tugor normal, no rashes or lesions. Neurologic: Alert oriented x3 cranial nerves II through XII intact, no motor deficit, no abnormal balance or gait. - Labs CBC & Chem 7: 10/28/18 07:52 11/02/18 07:20 Labs: Abnormal Lab Results - Last 24 Hours (Table) 11/01/18 11/01/18 11/02/18 Range/Units 12:28 13:49 00:06 PT 13.7 H (9.0-12.0) sec INR 1.3 H (<1.2) Sodium (137-145) mmol/L BUN (9-20) mg/dL Glucose (74-99) mg/dL POC Glucose (mg/dL) 124 H 103 H (75-99) mg/dL Calcium (8.4-10.2) mg/dL Magnesium (1.6-2.3) mg/dL 11/02/18 11/02/18 Range/Units 05:48 07:20 PT (9.0-12.0) sec INR (<1.2) Sodium 133 L (137-145) mmol/L BUN 32 H (9-20) mg/dL Glucose 123 H (74-99) mg/dL POC Glucose (mg/dL) 129 H (75-99) mg/dL Calcium 7.9 L (8.4-10.2) mg/dL Magnesium 2.4 H (1.6-2.3) mg/dL Assessment and Plan Plan: 1 acute abdominal pain and diarrhea most likely secondary to chemotherapy or enteritis, ileus. Stool studies in progress. Consult with Dr. Lynch appreciated. Continue IV fluids and decreased total 2 75 mL per hour Flagyl has been added. Advance diet to chopped. Continue Zofran and scopolamine patch ordered for today. Reglan added. TPN to wean today. 2 acute kidney injury with dehydration secondary to profuse diarrhea. 3 metabolic acidosis secondary to diarrhea. IV fluids discontinued. 4 colon cancer with metastasis: Has been on chemotherapy seen oncology on regular basis. Consult with Dr. Odonnell appreciated. Patient was not open to hospice care when discussed with oncology. 5 history of DVT of the right leg. Continue eliquis 2.5 mg twice daily 6 anemia and leukopenia: Can be combination results from chemotherapy repeat CBC daily. 7 GI prophylaxis and possible gastritis and enteritis: Patient will be on pantoprazole 40 mg daily and Zofran on as needed basis. 8 DVT prophylaxis: Patient has been on treatment for DVT with Eliquis. 9 hypokalemia, replacement. 10. Severe protein calorie malnutrition with weight loss of 40 pounds, albumin 2.7. Patient will be started on TPN CODE STATUS: Full code. Discharge plan: Return home tomorrow. Hospice informational meeting. Impression and plan of care have been directed as dictated by the signing physician. Brea Garcia nurse practitioner acting as scribe for signing physician.
[2018-11-02 17:12] LABS: Glucose,Whole Blood 102 mg/dL (75-99)
[2018-11-02] MEDS: FAT EMULSION 20% 250 ML in EMPTY BAG 1 BAG IV SCH (17:30)
[2018-11-02] MEDS: MIRTAZAPINE 15 MG TAB PO SCH (17:31)
[2018-11-02] MEDS: oxyCODONE-APAP 10-325MG 1 EACH TAB PO PRN (22:14)
[2018-11-02 23:35] LABS: Glucose,Whole Blood 92 mg/dL (75-99)
[2018-11-03] MEDS: MORPHINE SULFATE 4 MG/ML SYRINGE IVP PRN ×5 (02:27→15:03)
[2018-11-03] MEDS: INSULIN ASPART (NovoLOG) 100 UNIT/ML VIAL SQ SCH ×2 (05:50→11:50)
[2018-11-03 05:52] LABS: Glucose,Whole Blood 87 mg/dL (75-99)
[2018-11-03 06:57] LABS: Glucose,Whole Blood 106 mg/dL (75-99)
[2018-11-03] MEDS: PANTOPRAZOLE 40 MG/10 ML VIAL IV SCH (08:07)
[2018-11-03] MEDS: APIXABAN 2.5 MG TABLET PO SCH (08:09)
[2018-11-03] MEDS: LOPERAMIDE 2 MG CAP PO SCH ×2 (08:09→12:09)
[2018-11-03] MEDS: METOCLOPRAMIDE 5 MG/ML 2 ML VIAL IVP SCH (08:09)
[2018-11-03 08:16] LABS: Anisocytosis Slight; Basophils # (A) 0.1 k/uL (0-0.2); Basophils % (A) 1 %; Eosinophils # (A) 0.1 k/uL (0-0.7); Eosinophils % (A) 1 %; HCT 30.6 % (39.0-53.0); HGB 9.4 gm/dL (13.0-17.5); Hypochromasia Moderate; Lymphocytes # (A) 1.3 k/uL (1.0-4.8); Lymphocytes % (A) 13 %; MCHC 30.6 g/dL (31.0-37.0); MCV 78.6 fL (80.0-100.0); Mean Platelet Volume 7.5; Microcytosis Slight; Monocytes # (A) 0.7 k/uL (0-1.0); Monocytes % (A) 7 %; Neutrophils # (A) 7.6 k/uL (1.3-7.7); Neutrophils % (A) 77 %; Platelet Count 343 k/uL (150-450); RDW 18.6 % (11.5-15.5); WBC 9.9 k/uL (3.8-10.6)
[2018-11-03] MEDS: SALT AND SODA MOUTHWASH 1,000 ML PO SCH ×2 (08:17→12:20)
[2018-11-03 08:29] LABS: Calcium 8.4 mg/dL (8.4-10.2); Magnesium 2.6 mg/dL (1.6-2.3); Potassium 4.9 mmol/L (3.5-5.1); Total Bilirubin 0.6 mg/dL (0.2-1.3); Total Protein 6.5 g/dL (6.3-8.2)
[2018-11-03] MEDS: oxyCODONE-APAP 10-325MG 1 EACH TAB PO PRN (10:40)
[2018-11-03 11:29] LABS: Glucose,Whole Blood 100 mg/dL (75-99)
[2018-11-03 12:19] VITALS: BP 113/77; PULSE 95; RESP 17; TEMP 98.9
--- NOTE | 2018-11-03 12:30 | P.DS ---
Providers Date of admission: 10/22/18 11:55 Expected date of discharge: 11/03/18 Attending physician: Frederick Larsen Consults: 10/22/18 11:41 Consult Physician Urgent Consulting Provider: Lita Tariq Consult Reason/Comments: Known patient, colon cancer Do you want consulting provider notified?: Yes 10/22/18 12:12 Consult Physician Routine Consulting Provider: Talha Dubois Consult Reason/Comments: abd pain, possible obstruction Do you want consulting provider notified?: Yes 10/22/18 12:16 Consult Physician Routine Consulting Provider: Lita Tariq Consult Reason/Comments: colon ca Do you want consulting provider notified?: Yes Primary care physician: Mick Russ [facility] Course: 57-year-old male of Dr. Russ patient with past medical history of stage III colon cancer has been on chemotherapy has metastasis to the spine. Patient seen Dr. Tariq on regular basis. Has not felt well in the last 4-5 days developed to have generalized weakness fatigue not been able template to walk developed to have significant abdominal pain with nausea and vomiting not able to keep any food or fluid down symptoms become much worse lately patient is normally having diarrhea since his colectomy but lately has been more constipated and no bowel movement last 48 hours. Ended up coming to the emergency apartment at [facility] where was seen and evaluated he was in acute kidney injury with mild leukopenia and mild anemia and mild dehydration. CT of the abdomen showed partial bowel obstruction versus enteritis also had multiple bladder stone. Patient was hospitalized continue hydration no NG tube needed this point we'll consult general surgery and consult oncology continue conservative management next 24 hours if continued to have nausea vomiting and worsening x-ray might require an NG tube with decompression and possible intervention. 3: Patient has had liquid stools and specimen will be sent for C. difficile toxin. Patient has history of C. difficile colitis proximal than 2 years ago. He has had incontinence of stool. His abdomen remains a little sore. He is currently nothing by mouth and will advance his diet to clear liquids for lunch. X-rays of the abdomen will be done. Flagyl IV will be added. He also states that he did not sleep well last night due to frequent awakenings.. Patient has been seen by Dr. Lynch and he does not believe patient is obstructed and excessive diarrhea may be secondary to chemotherapy or enteritis. No plans for NG tube. Agrees with clear liquid diet. 3/2: The patient is continuing to have frequent watery stools. He is on a clear liquid diet and had one episode of emesis yesterday. Nausea has resolved this morning. He complains of generalized abdominal pain, no cramps. C. difficile toxin came back negative. Plan to continue clear liquid diet today. Abdominal x-ray from yesterday did show distended gas filled loops of large and small bowel consistent with intestinal ileus. No free air. White count has dropped to 1.3, hemoglobin 9.0, platelet count 153. Sodium 138, potassium 3.8, chloride 111 and CO2 18 down from 20 of yesterday. Creatinine 1.19. Stool for lactoferrin was in positive. Stool culture in progress. IV fluids will be changed to D5 0.9 and 100 mL/h due to acidosis. Patient is followed by general surgery, Dr. Lynch and Dr. Odonnell from oncology. CEA ordered. Patient is plan for chemotherapy as an outpatient once this condition resolves. 33: Patient has been afebrile, heart rate running in the 60s to 80s, blood pressure 119/82, pulse ox 99% on room air. Stool culture is pending. He continues to have loose stool but foul odor has resolved. He has has had multiple emesis and scopolamine patch has been added. Patient is continued on clear liquid diet only. Potassium will be replaced and added to his IV fluids. 3/4: Patient is complaining of ongoing vomiting. He states he is able to keep and occasional water down but that's it. Dr. Lynch added Reglan and he is also on Zofran and scopolamine patch. He states the diarrhea is slowing his last bowel movement was yesterday. No lower extremity edema. Patient is 4 days since admission without food. Patient will be started on TPN. 35: Patient states that he had a lot of vomiting yesterday evening but none this morning. He continues to have diarrhea which is chronic for him. He has been able to keep down small amounts of water and juan antonio flower. Patient was started on TPN yesterday. He continues to have hiccups that come and go. Patient has been afebrile, blood pressure 130/78, pulse ox 97% on room air, heart rate running in the 60s. Sodium 147, potassium 3.8, chloride 116, CO2 24, BUN 16 and creatinine 0.93. Blood sugar running between 09/14/1945. Magnesium is 2.3, phosphorus 1.8. 10/28: Patient states that he is feeling better today but did have vomiting this morning. He continues to have diarrhea. He actually states that the diarrhea is thought to be a little bit worse from yesterday. He is on a clear liquid diet which will not be advanced. White count 5.6, hemoglobin 10, platelet count 287, creatinine 0.74, chloride 112. Capillary blood glucose running between 105 and 192. He is feeling a little short of breath today and one dose of IV Lasix 20 mg ordered and IV fluids/TPN to be decreased to 75 mL per hour total. 10/29: The patient denies having any vomiting. He continues to have frequent diarrhea. He is willing to try a chopped diet today. He continues to have hiccups. He states he is feeling a little bit better today. Potassium will be replaced. He has been afebrile, blood pressure 160/83, heart rate running in the 60s to 90s, pulse ox 98% on room air. 10/30: Patient is afebrile, heart rate running from 60s to 80s, blood pressure 102/66, pulse ox 90% on room air. Sodium 136, potassium 3.9, chloride 106, CO2 21, BUN 21, creatinine 0.9. Patient states he had some gagging but no vomiting. He continues to have diarrhea. He denies any shortness of breath. He does state that in general he is feeling better. Abdominal x-ray from yesterday shows dilated large and small bowel increased compared to last exam consistent with generalized ileus. No free air. Anticipate he will be ready for discharge in the next 24-48 hours. 10/31: Patient has been afebrile, heart rate running in the 70s to 100, blood pressure 104/70, pulse ox 90% on room air. Sodium 135, potassium 4.0, chloride 100, CO2 24, BUN 25 and creatinine 0.85. Blood sugars running 90s to low 100s. Magnesium 2.4 and phosphorus 3.2. Patient remains on TPN. Patient continues to have nausea and refuses to try and take anything oral. Patient refuses NG tube. Patient has refused PT and OT and is only getting out of bed occasionally. Abdomen remains tender but better since admission. He continues to have diarrhea 3-4 times per day and the last one was this morning. Patient states he has not been sleeping. Will add in Remeron tonight and plan to start weaning TPN tomorrow. Oncology has added and Ativan as needed. Patient was not open to hospice care when discussed with oncology. 11/01: Patient evaluated today. He was able to tolerate his breakfast and lunch. He denies any nausea or vomiting. Family wanted an NG placed to decompress the stomach, it seems he needed sedation to have it placed in the past. Discussed that if he is tolerating PO foods and fluids, will not need NG placement. Did discuss the possibility of having PEG placed for nutrition. Patient was agreeable to this but would like to speak to family. He remains afebrile, blood pressure 126/86, 99% on room air, heart rate running in the 90s. Sodium 134, BUN 26, creatinine 0.85. 11/02: Patient tolerated meals yesterday and he is stating that appetite is beginning to increase. Patient has been refusing to take his medications. Patient states he does not feel ready to go home today. We will plan to wean off TPN and advance diet and plan for discharge tomorrow. Patient is willing to get information from hospice although he does not want a hospice patient at this point. Referral has been placed. 11/03: Patient has been afebrile, blood pressure 95/68, heart rate in 80s and 90s, pulse ox 97% on room air. White count is 9.9, hemoglobin 9.4, platelet count 343. Sodium 135, potassium 4.9, chloride 98, CO2 27, BUN 35 and creatinine 1.21. Capillary blood glucose running between 80 02/22/2006. Magnesium 2.6. Patient states that he is eating and keeping food down. He has been encouraged to include protein supplement at home. Patient will be discharged home today in stable condition. Discharge diagnoses: 1 acute abdominal pain and diarrhea most likely secondary to chemotherapy or enteritis, ileus. 2 acute kidney injury with dehydration secondary to profuse diarrhea. 3 metabolic acidosis secondary to diarrhea. 4 colon cancer with metastasis 5 history of DVT of the right leg. 6 anemia and leukopenia secondary to chemotherapy 7 hypokalemia8 8 Severe protein calorie malnutrition Discharge plan: Return home Impression and plan of care have been directed as dictated by the signing physician. Brea Garcia nurse practitioner acting as scribe for signing physician. Patient Condition at Discharge: Good Plan - Discharge Summary Discharge Rx Participant: No New Discharge Prescriptions: New Mirtazapine [Remeron] 15 mg PO 1800 #30 tab Continue oxyCODONE-APAP 10-325MG [Percocet 10-325 mg] 1 - 2 tab PO Q6HR PRN PRN Reason: Pain Diphenox-Atrop 2.5-0.025 mg [Lomotil] 1 tab PO QID PRN PRN Reason: Diarrhea Apixaban [Eliquis] 2.5 mg PO BID Prochlorperazine [Compazine] 10 mg PO Q6H MDD NAUSEA Diphenox-Atrop 2.5-0.025 mg [Lomotil] 1 tab PO 5XD PRN PRN Reason: Nausea Discharge Medication List Apixaban [Eliquis] 2.5 mg PO BID 01/11/18 [History] Diphenox-Atrop 2.5-0.025 mg [Lomotil] 1 tab PO QID PRN 01/11/18 [History] oxyCODONE-APAP 10-325MG [Percocet 10-325 mg] 1 - 2 tab PO Q6HR PRN 01/11/18 [History] Diphenox-Atrop 2.5-0.025 mg [Lomotil] 1 tab PO 5XD PRN 10/22/18 [History] Prochlorperazine [Compazine] 10 mg PO Q6H MDD NAUSEA 10/22/18 [History] Mirtazapine [Remeron] 15 mg PO 1800 #30 tab 11/03/18 [Rx] Follow up Appointment(s)/Referral(s): Mick Russ MD [Primary Care Provider] - 11/11/18 1:30 pm Lita Tariq MD [STAFF PHYSICIAN] - 11/09/18 4:45 pm Patient Instructions/Handouts: Mirtazapine (By mouth), Bowel Obstruction (DC), Ileus (DC) Discharge Disposition: HOME SELF-CARE
== END 2018-11-03 15:30 | disposition home or self-care (01) | DRG 393 ==
LOC: EC 08:18 → 3NMEDONC 11:55
PROVIDERS: ADMIT Internal Medicine Geriatric Medicine; ATTEND Internal Medicine Geriatric Medicine
PROC: 3E0336Z Introduction of Nutritional Substance into Peripheral Vein, Percutaneous Approach (ICD-10-PCS; principal; 2018-10-26)
DX: K52.1 Toxic gastroenteritis and colitis (principal); E43 Unspecified severe protein-calorie malnutrition; K56.7 Ileus, unspecified; C18.9 Malignant neoplasm of colon, unspecified; C79.51 Secondary malignant neoplasm of bone; E87.2 Acidosis; N17.9 Acute kidney failure, unspecified; N13.30 Unspecified hydronephrosis; D70.1 Agranulocytosis secondary to cancer chemotherapy; D70.9 Neutropenia, unspecified; G63 Polyneuropathy in diseases classified elsewhere; D64.81 Anemia due to antineoplastic chemotherapy; R15.9 Full incontinence of feces; T45.1X5A Adverse effect of antineoplastic and immunosuppressive drugs, initial encounter; E86.0 Dehydration; F32.9 Major depressive disorder, single episode, unspecified; R06.6 Hiccough; E87.6 Hypokalemia; Z79.01 Long term (current) use of anticoagulants; Z90.49 Acquired absence of other specified parts of digestive tract; Z86.718 Personal history of other venous thrombosis and embolism; Z86.19 Personal history of other infectious and parasitic diseases; Z87.440 Personal history of urinary (tract) infections; Z80.6 Family history of leukemia
CPT/HCPCS: 36415; 74019; 74021; 74176; 80048; 80053; 81001; 82040; 82150; 82310; 82330; 82378; 83630; 83690; 83735; 84100; 84478; 85025; 85027; 85610; 87045; 87046; 87324; 96361; 96374; 96375; 96376; 99285

== ENCOUNTER 2018-11-07 12:28 | Inpatient (IN) | payer MEDICARE ==
[2018-11-07] MEDS ORDERED: SODIUM CHLORIDE 0.9% 1,000 ML IV STA ×2 (12:50)
[2018-11-07] MEDS ORDERED: HYDROmorphone 1 MG/ML 1 ML SYRINGE IVP STA (12:51)
--- NOTE | 2018-11-07 12:53 | ED ---
Weakness HPI - General Chief complaint: Weakness Stated complaint: WEAKNESS Time Seen by Provider: 11/07/18 12:29 Source: patient, RN notes reviewed, old records reviewed Mode of arrival: EMS Limitations: no limitations - History of Present Illness Initial comments: Patient is a 57-year-old male with history of stage IV colon cancer. He was discharged from hospital 3 days ago and sent home with home health care. Patient reports these been able to eat or drink since discharge. He said multiple episodes of vomiting. He did have one loose bowel movement today. He became increasingly weak. Patient's reports that he's been unable to get up from the chair without having severe shortness of breath. Patient is currently on blood thinners. Patient has had no recent fevers. He's had no coughing. Patient has been unable to shower in the past 2 weeks due to severe lethargy and weakness. Patient's oncologist is Dr. Tariq. - Related Data Home Medications Medication Instructions Recorded Confirmed Apixaban [Eliquis] 2.5 mg PO BID 01/11/18 10/22/18 Diphenox-Atrop 2.5-0.025 mg 1 tab PO QID PRN 01/11/18 10/22/18 [Lomotil] oxyCODONE-APAP 10-325MG [Percocet 1 - 2 tab PO Q6HR PRN 01/11/18 10/22/18 10-325 mg] Diphenox-Atrop 2.5-0.025 mg 1 tab PO 5XD PRN 10/22/18 10/22/18 [Lomotil] Prochlorperazine [Compazine] 10 mg PO Q6H MDD NAUSEA 10/22/18 10/22/18 Previous Rx's Medication Instructions Recorded Mirtazapine [Remeron] 15 mg PO 1800 #30 tab 11/03/18 Allergies Allergy/AdvReac Type Severity Reaction Status Date / Time No Known Allergies Allergy Verified 10/22/18 08:41 Review of Systems ROS Statement: Those systems with pertinent positive or pertinent negative responses have been documented in the HPI. ROS Other: All systems not noted in ROS Statement are negative. 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 and that he R kidney hydronephrosis/loss of function because tumor cut off blood supply to that kidney, UTI with sepsis, R leg DVT History of Any Multi-Drug Resistant Organisms: C-DIFF Date of last positivie culture/infection: 2015 MDRO Source:: Bowel Past Surgical History: Bowel Resection, Cholecystectomy Additional Past Surgical History / Comment(s): Colonectomy, R renal stent at [facility]-other attempts to stent had failed and pt had a ureter perforation, colonoscopies Past Anesthesia/Blood Transfusion Reactions: No Reported Reaction Additional Past Anesthesia/Blood Transfusion Reaction / Comment(s): Pt has received blood in past without reaction. Past Psychological History: No Psychological Hx Reported Smoking Status: Never smoker - Past Family History Brother(s) Family Medical History: Cancer Additional Family Medical History / Comment(s): One brother had leukemia and another brother from SIDS Father Additional Family Medical History / Comment(s): Father from a ruptured brain aneurysm at the age of 87yrs. Mother Family Medical History: Unable to Obtain Additional Family Medical History / Comment(s): Pt states mother is 87yrs old and does not go to the doctors. General Exam - General Exam Comments Initial Comments: Frail 57-year-old male. Patient appears in moderate discomfort. Limitations: no limitations General appearance: alert, in no apparent distress Head exam: Present: atraumatic, normocephalic, normal inspection Eye exam: Present: normal appearance, PERRL, EOMI. Absent: scleral icterus, conjunctival injection, periorbital swelling ENT exam: Present: normal exam, mucous membranes moist Neck exam: Present: normal inspection. Absent: tenderness, meningismus, l ymphadenopathy Respiratory exam: Present: normal lung sounds bilaterally. Absent: respiratory distress, wheezes, rales, rhonchi, stridor Cardiovascular Exam: Present: regular rate, normal rhythm, normal heart sounds. Absent: systolic murmur, diastolic murmur, rubs, gallop, clicks GI/Abdominal exam: Present: soft, distended (Distended and tympanic abdomen.), normal bowel sounds. Absent: tenderness, guarding, rebound, rigid Extremities exam: Present: normal inspection, full ROM, normal capillary refill. Absent: tenderness, pedal edema, joint swelling, calf tenderness Back exam: Present: normal inspection Neurological exam: Present: alert, oriented X3, CN II-XII intact Course Vital Signs 11/07/18 12:29 Temperature 97.7 F Pulse Rate 99 Respiratory 18 Rate Blood Pressure 112/85 O2 Sat by Pulse 97 Oximetry Medical Decision Making - Medical Decision Making Patient is a 57-year-old male presents emergency department today with complaints of fatigue and shortness of breath and generally feeling dehydrated. He has history of stage IV colon cancer. He has had 2 bowel movements today. He was recently admitted the Patient for ileus. At this time Patient clears clinically dehydrated abdominal distention. X-rays consistent with the similar ileus pattern. Cannot rule mechanical obstruction. However clinically with Patient having 2 bowel movements unlikely for mechanical obstruction at this time. Patient's is concerned that he is discharged home to early. She wants further evaluation for his general fatigue. Upon review of notes it seemed the Patient was refusing hospice at that last discharge. Patient lab work today was reviewed. Chest x-ray is negative for any acute process. Patient will be admitted this time for continued ileus abdominal pain. Consults to Dr. Chandni arce. - Lab Data Result diagrams: 11/07/18 13:38 11/07/18 13:38 Lab Results 11/07/18 11/07/18 11/07/18 Range/Units 13:38 13:38 13:38 WBC 14.5 H (3.8-10.6) k/uL RBC 3.80 L (4.30-5.90) m/uL Hgb 9.0 L (13.0-17.5) gm/dL Hct 30.6 L (39.0-53.0) % MCV 80.6 (80.0-100.0) fL MCH 23.6 L (25.0-35.0) pg MCHC 29.3 L (31.0-37.0) g/dL RDW 18.7 H (11.5-15.5) % Plt Count 631 H (150-450) k/uL Neutrophils % 85 % Lymphocytes % 8 % Monocytes % 5 % Eosinophils % 0 % Basophils % 0 % Neutrophils # 12.2 H (1.3-7.7) k/uL Lymphocytes # 1.2 (1.0-4.8) k/uL Monocytes # 0.8 (0-1.0) k/uL Eosinophils # 0.1 (0-0.7) k/uL Basophils # 0.1 (0-0.2) k/uL Hypochromasia Moderate Anisocytosis Slight Microcytosis Slight PT 15.2 H (9.0-12.0) sec INR 1.5 H (<1.2) APTT 36.7 H (22.0-30.0) sec Sodium 134 L (137-145) mmol/L Potassium 4.3 (3.5-5.1) mmol/L Chloride 96 L (98-107) mmol/L Carbon Dioxide 21 L (22-30) mmol/L Anion Gap 17 mmol/L BUN 60 H (9-20) mg/dL Creatinine 1.89 H (0.66-1.25) mg/dL Est GFR (CKD-EPI)AfAm 44 (>60 ml/min/1.73 sqM) Est GFR (CKD-EPI)NonAf 38 (>60 ml/min/1.73 sqM) Glucose 100 H (74-99) mg/dL Plasma Lactic Acid Ruel (0.7-2.0) mmol/L Calcium 8.2 L (8.4-10.2) mg/dL Magnesium 2.5 H (1.6-2.3) mg/dL Total Bilirubin 0.6 (0.2-1.3) mg/dL AST 29 (17-59) U/L ALT 21 (21-72) U/L Alkaline Phosphatase 160 H (38-126) U/L Troponin I (0.000-0.034) ng/mL Total Protein 7.3 (6.3-8.2) g/dL Albumin 3.1 L (3.5-5.0) g/dL 11/07/18 11/07/18 Range/Units 13:38 13:38 WBC (3.8-10.6) k/uL RBC (4.30-5.90) m/uL Hgb (13.0-17.5) gm/dL Hct (39.0-53.0) % MCV (80.0-100.0) fL MCH (25.0-35.0) pg MCHC (31.0-37.0) g/dL RDW (11.5-15.5) % Plt Count (150-450) k/uL Neutrophils % % Lymphocytes % % Monocytes % % Eosinophils % % Basophils % % Neutrophils # (1.3-7.7) k/uL Lymphocytes # (1.0-4.8) k/uL Monocytes # (0-1.0) k/uL Eosinophils # (0-0.7) k/uL Basophils # (0-0.2) k/uL Hypochromasia Anisocytosis Microcytosis PT (9.0-12.0) sec INR (<1.2) APTT (22.0-30.0) sec Sodium (137-145) mmol/L Potassium (3.5-5.1) mmol/L Chloride (98-107) mmol/L Carbon Dioxide (22-30) mmol/L Anion Gap mmol/L BUN (9-20) mg/dL Creatinine (0.66-1.25) mg/dL Est GFR (CKD-EPI)AfAm (>60 ml/min/1.73 sqM) Est GFR (CKD-EPI)NonAf (>60 ml/min/1.73 sqM) Glucose (74-99) mg/dL Plasma Lactic Acid Ruel 1.2 (0.7-2.0) mmol/L Calcium (8.4-10.2) mg/dL Magnesium (1.6-2.3) mg/dL Total Bilirubin (0.2-1.3) mg/dL AST (17-59) U/L ALT (21-72) U/L Alkaline Phosphatase (38-126) U/L Troponin I <0.012 (0.000-0.034) ng/mL Total Protein (6.3-8.2) g/dL Albumin (3.5-5.0) g/dL 11/07/18 13:11 EKG performed at 1305 shows normal sinus rhythm with prolonged QT. Abnormal EKG. Ventricular 96 bpm. Interval is 156 most seconds. She yazdanism 80 ms. QT QTc is 396/500 ms. - Radiology Data Radiology results: report reviewed Chest x-ray shows subsegmental atelectasis in left lateral lung base mostly cl eared compared to last exam. Normal heart. KB shows dilated bowel probably due to ileus unchanged compared to last exam. No free air. Distal large bowel mechanical obstruction is possible. Disposition Clinical Impression: Ileus, Colon adenocarcinoma, Dehydration Disposition: ADMITTED IP TO THIS HOSP Condition: Stable Is patient prescribed a controlled substance at d/c from ED?: No Referrals: Mick Russ MD [Primary Care Provider] - 1-2 days Time of Disposition: 15:46
[2018-11-07 14:00] LABS: Anisocytosis Slight; Basophils # (A) 0.1 k/uL (0-0.2); Basophils % (A) 0 %; Eosinophils # (A) 0.1 k/uL (0-0.7); Eosinophils % (A) 0 %; HCT 30.6 % (39.0-53.0); Hypochromasia Moderate; Lymphocytes # (A) 1.2 k/uL (1.0-4.8); Lymphocytes % (A) 8 %; MCH 23.6 pg (25.0-35.0); MCHC 29.3 g/dL (31.0-37.0); MCV 80.6 fL (80.0-100.0); Mean Platelet Volume 6.7; Microcytosis Slight; Monocytes # (A) 0.8 k/uL (0-1.0); Monocytes % (A) 5 %; Neutrophils # (A) 12.2 k/uL (1.3-7.7); Neutrophils % (A) 85 %; Platelet Count 631 k/uL (150-450); RDW 18.7 % (11.5-15.5); WBC 14.5 k/uL (3.8-10.6)
[2018-11-07 14:05] LABS: INR 1.5 (<1.2); Partial Thromboplastin Time 36.7 sec (22.0-30.0); Prothrombin Time 15.2 sec (9.0-12.0)
[2018-11-07 14:17] LABS: Albumin 3.1 g/dL (3.5-5.0); Calcium 8.2 mg/dL (8.4-10.2); Potassium 4.3 mmol/L (3.5-5.1); Total Bilirubin 0.6 mg/dL (0.2-1.3); Total Protein 7.3 g/dL (6.3-8.2)
--- NOTE | 2018-11-07 14:20 | XR ---
EXAMINATION TYPE: XR KUB DATE OF EXAM: 11/07/2018 COMPARISON: 10/31/2018 HISTORY: Weakness TECHNIQUE: 2 views FINDINGS: There are multiple distended gas-filled loops of large and small bowel. There is dilated sm all bowel in the left upper quadrant. There is no pathologic calcification. I see no sign of free air . IMPRESSION: Dilated bowel probably due to ileus that is unchanged compared to last exam. No free air. Distal large bowel mechanical obstruction is possible.
--- NOTE | 2018-11-07 14:24 | XR ---
EXAMINATION TYPE: XR chest 2V DATE OF EXAM: 11/07/2018 COMPARISON: 01/16/2018 HISTORY: Weakness TECHNIQUE: Frontal and lateral views of the chest are obtained. FINDINGS: There is no heart failure nor confluent pneumonic infiltrate. Costophrenic angles are fair ly clear. There is right central venous catheter with tip in the superior vena cava. There are chest leads. There is apparent right-sided aortic arch. IMPRESSION: There is minimal subsegmental atelectasis at the lateral left lung base that is mostly c leared compared to last exam. Normal heart.
[2018-11-07 14:30] LABS: Magnesium 2.5 mg/dL (1.6-2.3)
[2018-11-07] MEDS ORDERED: HYDROmorphone 0.5 MG/0.5 ML SYRINGE IVP PRN (15:46)
[2018-11-07] MEDS ORDERED: NALOXONE 0.4 MG/ML 1 ML VIAL IV PRN (15:46)
[2018-11-07] MEDS ORDERED: ACETAMINOPHEN TAB 325 MG TAB PO PRN (15:46)
[2018-11-07] MEDS ORDERED: IBUPROFEN 400 MG TAB PO PRN (15:46)
[2018-11-07] MEDS ORDERED: DIPHENOX-ATROP 2.5-0.025 MG 1 EACH TAB PO PRN (15:49)
[2018-11-07] MEDS: HYDROmorphone 1 MG/ML 1 ML SYRINGE IVP PRN (16:08)
[2018-11-07] MEDS: SODIUM CHLORIDE 0.9% 1,000 ML IV SCH (16:10)
[2018-11-07] MEDS: MIRTAZAPINE 15 MG TAB PO SCH (17:28)
[2018-11-07] MEDS: PROCHLORPERAZINE 10 MG TAB PO SCH ×2 (17:28→21:33)
--- NOTE | 2018-11-07 18:16 | P.PN ---
Progress Note - Text Progress Note Date: 11/07/18 I personally reviewed the patients x-rays, CT scan and PET report from past 3 months. Reviewed notes from prior admission and talked with his nurse. Will evaluate the patient in the AM.
[2018-11-07] MEDS: APIXABAN 2.5 MG TABLET PO SCH (21:33)
[2018-11-08] MEDS: HYDROmorphone 1 MG/ML 1 ML SYRINGE IVP PRN ×5 (02:12→22:01)
[2018-11-08] MEDS: SODIUM CHLORIDE 0.9% 1,000 ML IV SCH ×3 (02:13→22:02)
[2018-11-08] MEDS: PROCHLORPERAZINE 10 MG TAB PO SCH ×4 (05:07→22:06)
[2018-11-08] MEDS: APIXABAN 2.5 MG TABLET PO SCH ×2 (07:14→22:06)
[2018-11-08] MEDS: PANTOPRAZOLE 40 MG/10 ML VIAL IV SCH (07:18)
[2018-11-08 09:20] LABS: Amorphous Sediment,Urine Occasional /hpf; Appearance,Urine Clear (Clear); Bilirubin,Urine Negative (Negative); Blood,Urine Small (Negative); Color,Urine Yellow; Glucose,Urine (UA) Negative (Negative); Ketones,Urine Trace (Negative); Leukocyte Esterase,Urine Negative (Negative); Mucus,Urine Rare /hpf; Nitrite,Urine Negative (Negative); PH, Urine 5.5 (5.0-8.0); Protein,Urine 1+ (Negative); RBC,Urine 6 /hpf (0-5); Specific Gravity,Urine 1.017 (1.001-1.035); Squamous Epithelial Cell,Urine <1 /hpf (0-4); Urobilinogen,Urine <2.0 mg/dL (<2.0)
[2018-11-08] MEDS ORDERED: LIDOCAINE 2% GEL 30 ML TUBE TOPICAL STA (10:16)
[2018-11-08] MEDS ORDERED: LORazepam 2 MG/ML INJ IV STA (10:17)
--- NOTE | 2018-11-08 10:45 | P.GSCN ---
History of Present Illness Consult date: 11/08/18 Reason for Consult: Ileus, colon cancer History of present illness: The patient is a 57 year old man with known metastatic colon cancer. He has been undergoing chemotherapy. He has been unable to eat or drink for several weeks. He's been getting progressively weaker. His abdominal x-ray showed marked distention of large and small bowel. He has been passing some loose stools. The bowel movements have been loose since his colon resection. No blood in the stools or dark tarry stools. He's had 2 previous admissions with ileus during chemotherapy which have resolved. He had a colonoscopy about a year after his initial resection. None since then. On his initial colonoscopy had greater than 20 colon polyps. He has typically refused NG tube in the past. He feels he is ready for one today. 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 and that he R kidney hydronephrosis/loss of function because tumor cut off blood supply to that kidney, UTI with sepsis, R leg DVT History of Any Multi-Drug Resistant Organisms: C-DIFF Year Discovered:: 2016 MDRO Source:: Bowel Past Surgical History: Bowel Resection, Cholecystectomy Additional Past Surgical History / Comment(s): Colonectomy, R renal stent at [facility]-other attempts to stent had failed and pt had a ureter perforation, colonoscopies Past Anesthesia/Blood Transfusion Reactions: No Reported Reaction Additional Past Anesthesia/Blood Transfusion Reaction / Comm: Pt has received blood in past without reaction. Past Psychological History: No Psychological Hx Reported Additional Psychological History / Comment(s): Pt resides with his spouse. He uses a cane to ambulate. He drives seldom. He is independent. Smoking Status: Never smoker Past Alcohol Use History: None Reported Past Drug Use History: None Reported - Past Family History Brother(s) Family Medical History: Cancer Additional Family Medical History / Comment(s): One brother had leukemia and another brother from SIDS Father Additional Family Medical History / Comment(s): Father from a ruptured brain aneurysm at the age of 87yrs. Mother Family Medical History: Unable to Obtain Additional Family Medical History / Comment(s): Pt states mother is 87yrs old and does not go to the doctors. Medications and Allergies Home Medications Medication Instructions Recorded Confirmed Type Apixaban [Eliquis] 2.5 mg PO BID 01/11/18 11/07/18 History Diphenox-Atrop 2.5-0.025 mg 1 tab PO QID PRN 01/11/18 11/07/18 History [Lomotil] oxyCODONE-APAP 10-325MG [Percocet 1 - 2 tab PO Q6HR PRN 01/11/18 11/07/18 History 10-325 mg] Allergies Allergy/AdvReac Type Severity Reaction Status Date / Time No Known Allergies Allergy Verified 11/07/18 16:00 Surgical - Exam Osteopathic Statement: *. No significant issues noted on an osteopathic structural exam other than those noted in the History and Physical/Consult. Vital Signs Temp Pulse Resp BP Pulse Ox 97.7 F 99 18 112/85 97 11/07/18 12:29 11/07/18 12:29 11/07/18 12:29 11/07/18 12:29 11/07/18 12:29 - General no distress, cachectic, chronically ill - Eyes normal ocular movement - Neck trachea midline - Respiratory normal respiratory effort, clear to auscultation - Cardiovascular Rhythm: regular - Abdomen Abdomen: soft, no tender, bowel sounds (Active), surgical scars, distended (Softly distended and tympanitic) Results - Labs 11/07/18 13:38 11/07/18 13:38 Abnormal Lab Results - Last 24 Hours (Table) 11/07/18 11/07/18 11/07/18 Range/Units 13:38 13:38 13:38 WBC 14.5 H (3.8-10.6) k/uL RBC 3.80 L (4.30-5.90) m/uL Hgb 9.0 L (13.0-17.5) gm/dL Hct 30.6 L (39.0-53.0) % MCH 23.6 L (25.0-35.0) pg MCHC 29.3 L (31.0-37.0) g/dL RDW 18.7 H (11.5-15.5) % Plt Count 631 H (150-450) k/uL Neutrophils # 12.2 H (1.3-7.7) k/uL PT 15.2 H (9.0-12.0) sec INR 1.5 H (<1.2) APTT 36.7 H (22.0-30.0) sec Sodium 134 L (137-145) mmol/L Chloride 96 L (98-107) mmol/L Carbon Dioxide 21 L (22-30) mmol/L BUN 60 H (9-20) mg/dL Creatinine 1.89 H (0.66-1.25) mg/dL Glucose 100 H (74-99) mg/dL Calcium 8.2 L (8.4-10.2) mg/dL Magnesium 2.5 H (1.6-2.3) mg/dL Alkaline Phosphatase 160 H (38-126) U/L Albumin 3.1 L (3.5-5.0) g/dL Urine Protein (Negative) Urine Ketones (Negative) Urine Blood (Negative) Urine RBC (0-5) /hpf Urine WBC (0-5) /hpf Amorphous Sediment (None) /hpf Urine Mucus (None) /hpf 11/08/ Range/Units 09:00 WBC (3.8-10.6) k/uL RBC (4.30-5.90) m/uL Hgb (13.0-17.5) gm/dL Hct (39.0-53.0) % MCH (25.0-35.0) pg MCHC (31.0-37.0) g/dL RDW (11.5-15.5) % Plt Count (150-450) k/uL Neutrophils # (1.3-7.7) k/uL PT (9.0-12.0) sec INR (<1.2) APTT (22.0-30.0) sec Sodium (137-145) mmol/L Chloride (98-107) mmol/L Carbon Dioxide (22-30) mmol/L BUN (9-20) mg/dL Creatinine (0.66-1.25) mg/dL Glucose (74-99) mg/dL Calcium (8.4-10.2) mg/dL Magnesium (1.6-2.3) mg/dL Alkaline Phosphatase (38-126) U/L Albumin (3.5-5.0) g/dL Urine Protein 1+ H (Negative) Urine Ketones Trace H (Negative) Urine Blood Small H (Negative) Urine RBC 6 H (0-5) /hpf Urine WBC 6 H (0-5) /hpf Amorphous Sediment Occasional H (None) /hpf Urine Mucus Rare H (None) /hpf Diabetes panel 11/07/18 Range/Units 13:38 Sodium 134 L (137-145) mmol/L Potassium 4.3 (3.5-5.1) mmol/L Chloride 96 L (98-107) mmol/L Carbon Dioxide 21 L (22-30) mmol/L BUN 60 H (9-20) mg/dL Creatinine 1.89 H (0.66-1.25) mg/dL Glucose 100 H (74-99) mg/dL Calcium 8.2 L (8.4-10.2) mg/dL AST 29 (17-59) U/L ALT 21 (21-72) U/L Alkaline Phosphatase 160 H (38-126) U/L Total Protein 7.3 (6.3-8.2) g/dL Albumin 3.1 L (3.5-5.0) g/dL Calcium panel 11/07/18 Range/Units 13:38 Calcium 8.2 L (8.4-10.2) mg/dL Albumin 3.1 L (3.5-5.0) g/dL Pituitary panel 11/07/18 Range/Units 13:38 Sodium 134 L (137-145) mmol/L Potassium 4.3 (3.5-5.1) mmol/L Chloride 96 L (98-107) mmol/L Carbon Dioxide 21 L (22-30) mmol/L BUN 60 H (9-20) mg/dL Creatinine 1.89 H (0.66-1.25) mg/dL Glucose 100 H (74-99) mg/dL Calcium 8.2 L (8.4-10.2) mg/dL Adrenal panel 11/07/18 Range/Units 13:38 Sodium 134 L (137-145) mmol/L Potassium 4.3 (3.5-5.1) mmol/L Chloride 96 L (98-107) mmol/L Carbon Dioxide 21 L (22-30) mmol/L BUN 60 H (9-20) mg/dL Creatinine 1.89 H (0.66-1.25) mg/dL Glucose 100 H (74-99) mg/dL Calcium 8.2 L (8.4-10.2) mg/dL Total Bilirubin 0.6 (0.2-1.3) mg/dL AST 29 (17-59) U/L ALT 21 (21-72) U/L Alkaline Phosphatase 160 H (38-126) U/L Total Protein 7.3 (6.3-8.2) g/dL Albumin 3.1 L (3.5-5.0) g/dL - Imaging Abdominal x-ray: report reviewed, image reviewed (I also personally reviewed prior computed tomography scan and PET scan.) Assessment and Plan (1) Primary colon cancer without distant metastasis (M0) Current Visit: Yes Status: Acute Code(s): C18.9 - MALIGNANT NEOPLASM OF COLON, UNSPECIFIED SNOMED Code(s): 56057126 (2) Nausea & vomiting Current Visit: No Status: Resolved Code(s): R11.2 - NAUSEA WITH VOMITING, UNSPECIFIED SNOMED Code(s): 25729566 Plan: The patient has had episodes which resolve with supportive care. is asking about TPN since he is not eaten much for the last 2-3 weeks. When reviewing the imaging I would be concerned that the pelvic tumor mass may be causing some sort of distal bowel obstruction. We'll order a barium enema tomorrow to rule this out. NG was personally placed without difficulty through the left nares using lidocaine jelly. Further recommendations to follow
[2018-11-08 11:39] LABS: Glucose,Whole Blood 104 mg/dL (75-99)
[2018-11-08] MEDS: INSULIN ASPART (NovoLOG) 100 UNIT/ML VIAL SQ SCH ×2 (11:59→17:54)
--- NOTE | 2018-11-08 11:59 | P.HPIM ---
History of Present Illness H&P Date: 11/08/18 Chief Complaint: zachariah This is a 57-year-old male patient of Dr. Russ'scout with past medical history of stage III colon cancer, his been on chemotherapy he is also had metastasis to the spine. Patient is followed by Dr. Dang on a regular basis. Patient was recently discharged from 3 days ago from the hospital with abdominal pain and similar symptoms. Patient was sent home with homecare, he reports he had multiple episodes of vomiting and diarrhea and became increasingly weak. Chest x-ray showed atelectasis at the lateral left lung base that is cleared fro m previous exam, abdominal x-ray shows dilated bowel possible ileus that was unchanged from previous exam, and possible distal large bowel mechanical obstruction. Labs show hemoglobin 9, WBC 14.5, sodium 134, BUN 60, creatinine 1.89. He is afebrile, heart rate running in the 90s, blood pressure 120/76, 94% on room air. Surgery and oncology have been consulted, will obtain blood cultures. Patient will be scheduled for barium enema tomorrow to rule out distal bowel obstruction from pelvic tumor mass, and she was placed without difficulty by Dr. Sebastian. Review of Systems Constitutional: Reports fatigue, Reports weakness, Denies chills, Denies fever Ears, nose, mouth and throat: Denies dysphagia, Denies headache, Denies hoarsen ess, Denies mouth pain, Denies nasal congestion, Denies nasal discharge, Denies post-nasal drip, Denies sore throat Cardiovascular: Denies chest pain, Denies edema, Denies high blood pressure, Denies leg edema, Denies orthopnea, Denies palpitations, Denies shortness of breath, Denies syncope Respiratory: Denies congestion, Denies cough, Denies dyspnea, Denies pain Gastrointestinal: Reports abdominal pain, Reports diarrhea, Reports loss of appetite, Reports nausea, Reports vomiting, Denies bloating, Denies constipation, Denies dyspepsia, Denies hematemesis Genitourinary: Denies dysuria, Denies flank pain, Denies hematuria, Denies nocturia, Denies urinary frequency, Denies urinary retention Musculoskeletal: Reports muscle weakness, Denies atrophy, Denies frequent falls, Denies gait dysfunction, Denies leg numbness/tingling, Denies limitation of motion, Denies neck pain, Denies neck stiffness Neurological: Reports weakness, Denies confusion, Denies gait dysfunction, Denies headaches, Denies memory loss, Denies numbness, Denies paralysis, Denies seizures, Denies syncope Endocrine: Denies palpitations, Denies weight change Hematologic/Lymphatic: Denies lymphadenopathy 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 and that he R kidney hydronephrosis/loss of function because tumor cut off blood supply to that kidney, UTI with sepsis, R leg DVT History of Any Multi-Drug Resistant Organisms: C-DIFF Date of last positivie culture/infection: 2015 MDRO Source:: Bowel Past Surgical History: Bowel Resection, Cholecystectomy Additional Past Surgical History / Comment(s): Colonectomy, R renal stent at [facility]-other attempts to stent had failed and pt had a ureter perforation, colonoscopies Past Anesthesia/Blood Transfusion Reactions: No Reported Reaction Additional Past Anesthesia/Blood Transfusion Reaction / Comment(s): Pt has received blood in past without reaction. Past Psychological History: No Psychological Hx Reported Additional Psychological History / Comment(s): Pt resides with his spouse. He uses a cane to ambulate. He drives seldom. He is independent. Smoking Status: Never smoker Past Alcohol Use History: None Reported Past Drug Use History: None Reported - Past Family History Brother(s) Family Medical History: Cancer Additional Family Medical History / Comment(s): One brother had leukemia and another brother from SIDS Father Additional Family Medical History / Comment(s): Father from a ruptured brain aneurysm at the age of 87yrs. Mother Family Medical History: Unable to Obtain Additional Family Medical History / Comment(s): Pt states mother is 87yrs old and does not go to the doctors. Medications and Allergies Home Medications Medication Instructions Recorded Confirmed Type Apixaban [Eliquis] 2.5 mg PO BID 01/11/18 11/07/18 History Diphenox-Atrop 2.5-0.025 mg 1 tab PO QID PRN 01/11/18 11/07/18 History [Lomotil] oxyCODONE-APAP 10-325MG [Percocet 1 - 2 tab PO Q6HR PRN 01/11/18 11/07/18 History 10-325 mg] Allergies Allergy/AdvReac Type Severity Reaction Status Date / Time No Known Allergies Allergy Verified 11/07/18 16:00 Physical Exam Vitals: Vital Signs Temp Pulse Pulse Pulse Pulse Resp BP 11/08/18 05:00 98.2 F 92 16 11/07/18 22:12 98.1 F 95 16 11/07/18 17:13 92 16 11/07/18 16:59 98.4 F 92 16 11/07/18 16:07 98.4 F 92 16 11/07/18 15:30 90 14 105/80 11/07/18 15:00 89 16 103/81 11/07/18 14:30 87 17 112/85 11/07/18 12:29 97.7 F 99 18 112/85 BP Pulse Ox 11/08/18 05:00 120/76 94 L 11/07/18 22:12 115/81 99 11/07/18 17:13 11/07/18 16:59 108/76 11/07/18 16:07 108/76 99 11/07/18 15:30 96 11/07/18 15:00 100 11/07/18 14:30 100 11/07/18 12:29 97 Intake and Output 11/07/18 11/08/18 11/08/18 22:59 06:59 14:59 Intake Total 400 800 Balance 400 800 Intake: Intake, IV Titration 400 800 Amount Sodium Chloride 0.9% 1, 400 800 000 ml @ 100 mls/hr IV . Q10H [facility] Rx#:[id number] Other: Voiding Method Diaper Incontinent - Constitutional General appearance: average body habitus, cooperative, no acute distress - EENT Eyes: EOMI, PERRLA, normal appearance ENT: hearing grossly normal, normal oropharynx, no pharyngeal erythema - Neck Neck: no lymphadenopathy, normal ROM, no rigidity, no thyromegaly - Respiratory Respiratory: bilateral: CTA, negative: dullness, rales, rhonchi, wheezing - Cardiovascular Rhythm: regular Heart sounds: normal: S1, S2 - Gastrointestinal General gastrointestinal: decreased bowel sounds, distended, no hepatomegaly, no organomegaly, soft, tenderness - Neurologic Neurologic: CNII-XII intact - Musculoskeletal Musculoskeletal: generalized weakness, strength equal bilaterally - Psychiatric Psychiatric: A&O x's 3, appropriate affect, intact judgment & insight Results CBC & Chem 7: 11/07/18 13:38 11/07/18 13:38 Labs: Abnormal Lab Results - Last 24 Hours (Table) 11/07/18 11/07/18 11/07/18 Range/Units 13:38 13:38 13:38 WBC 14.5 H (3.8-10.6) k/uL RBC 3.80 L (4.30-5.90) m/uL Hgb 9.0 L (13.0-17.5) gm/dL Hct 30.6 L (39.0-53.0) % MCH 23.6 L (25.0-35.0) pg MCHC 29.3 L (31.0-37.0) g/dL RDW 18.7 H (11.5-15.5) % Plt Count 631 H (150-450) k/uL Neutrophils # 12.2 H (1.3-7.7) k/uL PT 15.2 H (9.0-12.0) sec INR 1.5 H (<1.2) APTT 36.7 H (22.0-30.0) sec Sodium 134 L (137-145) mmol/L Chloride 96 L (98-107) mmol/L Carbon Dioxide 21 L (22-30) mmol/L BUN 60 H (9-20) mg/dL Creatinine 1.89 H (0.66-1.25) mg/dL Glucose 100 H (74-99) mg/dL Calcium 8.2 L (8.4-10.2) mg/dL Magnesium 2.5 H (1.6-2.3) mg/dL Alkaline Phosphatase 160 H (38-126) U/L Albumin 3.1 L (3.5-5.0) g/dL Thrombosis Risk Factor Assmnt - Choose All That Apply Each Factor Represents 1 point: Age 41-60 years Each Risk Factor Represents 3 Points: Family history of DVT/PE Thrombosis Risk Factor Assessment Total Risk Factor Score: 4 Thrombosis Risk Factor Assessment Level: Moderate Risk Assessment and Plan Plan: 1. Acute abdominal pain: X-ray shows ileus, surgery on consult placed NG tube, scheduled for barium enema to rule out pelvic tumor mass that may be causing bowel obstruction. He'll continue on Zofran, Protonix and Compazine 2. Acute kidney injury: Secondary to dehydration, continue with IV fluids, repeat kidney function tomorrow 3. Severe dehydration: IV hydration 4. Colon cancer is metastasis: Has been on chemotherapy and sees oncology on regular basis, oncology on consult 5. History of DVT: Continue on all across 2.5 mg twice a day. 6. Anemia: Secondary to chemotherapy, will continue to repeat CBC daily. 7. GI prophylaxis. Protonix 40 mg daily 8. DVT prophylaxis. Has been on treatment for DVT without was CODE STATUS: Full code The above impression and plan of care have been discussed and directed by signing physician. Mireya Paul nurse practitioner acting as scribe for signing physician.
[2018-11-08 12:22] LABS: Albumin 2.8 g/dL (3.5-5.0); Magnesium 2.4 mg/dL (1.6-2.3); Phosphorus 3.4 mg/dL (2.5-4.5); Potassium 3.7 mmol/L (3.5-5.1); Total Bilirubin 0.8 mg/dL (0.2-1.3); Total Protein 6.6 g/dL (6.3-8.2)
[2018-11-08] MEDS ORDERED: [UNRECOGNIZED DRUG - OTHER] IV SCH ×6 (14:00)
[2018-11-08] MEDS ORDERED: CALCIUM CHLORIDE IV SCH ×6 (14:00)
[2018-11-08] MEDS ORDERED: SODIUM ACETATE IV SCH ×6 (14:00)
[2018-11-08] MEDS ORDERED: POTASSIUM PHOSPHATE IV SCH ×6 (14:00)
[2018-11-08] MEDS ORDERED: MVI IV SCH ×6 (14:00)
[2018-11-08] MEDS: FAT EMULSION 20% 250 ML IV SCH (16:30)
[2018-11-08 17:33] LABS: Glucose,Whole Blood 114 mg/dL (75-99)
[2018-11-08] MEDS: MIRTAZAPINE 15 MG TAB PO SCH (17:57)
[2018-11-08] MEDS: ONDANSETRON 4 MG/2 ML VIAL IVP PRN (22:02)
[2018-11-08 23:55] LABS: Glucose,Whole Blood 94 mg/dL (75-99)
[2018-11-09] MEDS: INSULIN ASPART (NovoLOG) 100 UNIT/ML VIAL SQ SCH ×4 (00:29→18:14)
[2018-11-09] MEDS: HYDROmorphone 1 MG/ML 1 ML SYRINGE IVP PRN ×3 (01:57→09:41)
[2018-11-09] MEDS: PROCHLORPERAZINE 10 MG TAB PO SCH ×4 (03:36→20:11)
[2018-11-09 05:24] LABS: Glucose,Whole Blood 116 mg/dL (75-99)
[2018-11-09] MEDS: ONDANSETRON 4 MG/2 ML VIAL IVP PRN (05:25)
[2018-11-09] MEDS: SODIUM CHLORIDE 0.9% 1,000 ML IV SCH (05:26)
[2018-11-09] MEDS: APIXABAN 2.5 MG TABLET PO SCH (08:20)
[2018-11-09] MEDS: PANTOPRAZOLE 40 MG/10 ML VIAL IV SCH (08:20)
[2018-11-09 08:28] LABS: Anion Gap 9 mmol/L; Blood Urea Nitrogen 27 mg/dL (9-20); Calcium 8.1 mg/dL (8.4-10.2); Carbon Dioxide 23 mmol/L (22-30); Chloride 108 mmol/L (98-107); Glucose 104 mg/dL (74-99); Magnesium 2.3 mg/dL (1.6-2.3); Potassium 3.9 mmol/L (3.5-5.1); Sodium 140 mmol/L (137-145)
--- NOTE | 2018-11-09 09:55 | FL ---
EXAMINATION TYPE: FL barium enema DATE OF EXAM: 11/09/2018 COMPARISON: CT abdomen pelvis 10/22/2018 HISTORY: Distal bowel obstruction TECHNIQUE: A single contrast enema study is performed. FINDINGS: Official Court Interpreter view of the abdomen shows prominent gas distended loops of small and large bowel. Exam is limited to the distal colon at the level of the anastomosis. Smooth tapered, bowel caliber change is noted within the pelvis. Patient could not retain the contras t material. Persistent narrowing is noted within the pelvis. IMPRESSION: There is bowel narrowing within the pelvis consistent with patient's history of distal b owel obstruction. Exam is limited.
--- NOTE | 2018-11-09 11:31 | P.PN ---
Subjective Progress Note Date: 11/09/18 This is a 57-year-old male patient of Dr. Russ's with past medical history of stage III colon cancer, his been on chemotherapy he is also had metastasis to the spine. Patient is followed by Dr. Dang on a regular basis. Patient was recently discharged from 3 days ago from the hospital with abdominal pain and similar symptoms. Patient was sent home with homecare, he reports he had multiple episodes of vomiting and diarrhea and became increasingly weak. Chest x-ray showed atelectasis at the lateral left lung base that is cleared from previous exam, abdominal x-ray shows dilated bowel possible ileus that was unchanged from previous exam, and possible distal large bowel mechanical obstru ction. Labs show hemoglobin 9, WBC 14.5, sodium 134, BUN 60, creatinine 1.89. He is afebrile, heart rate running in the 90s, blood pressure 120/76, 94% on room air. Surgery and oncology have been consulted, will obtain blood cultures. Patient will be scheduled for barium enema tomorrow to rule out distal bowel obstruction from pelvic tumor mass, and she was placed without difficulty by Dr. Sebastian. 11/09: The patient has been afebrile, heart rate running in the 80s and 90s, blood pressure 117/78, pulse ox 90% on room air. Sodium 140, potassium 3.9, chloride 108, CO2 23, BUN 27, creatinine 0.93. Patient had NG tube placed but after 3 hours he pulled this out. He had episode of confusion and hallucination after receiving Ativan during the NG tube placement. Patient had a sitter at the bedside for brief period and this was discontinued. Abdomen is less distended today. He is on TPN. He's been seen by Dr. Sebastian and underwent a barium enema this morning which revealed bowel narrowing within the pelvis consistent with patient's history of distal bowel obstruction. Surgical plans t o be discussed with the patient and his . Discussed discharge planning and patient's is requesting placement at [facility] for subacute rehab at the time of discharge. Case management and social insurance adviser following the patient. Review of Systems Constitutional: Reports fatigue, Reports weakness, Denies chills, Denies fever Ears, nose, mouth and throat: Denies dysphagia, Denies headache, Denies hoarseness, Denies mouth pain, Denies nasal congestion, Denies nasal discharge, Denies post-nasal drip, Denies sore throat Cardiovascular: Denies chest pain, Denies edema, Denies high blood pressure, Denies leg edema, Denies orthopnea, Denies palpitations, Denies shortness of breath, Denies syncope Respiratory: Denies congestion, Denies cough, Denies dyspnea, Denies pain Gastrointestinal: Reports abdominal pain, Reports diarrhea, Reports loss of appetite, Reports nausea, Reports vomiting, reports bloating, Denies constipation, Denies dyspepsia, Denies hematemesis Genitourinary: Denies dysuria, Denies flank pain, Denies hematuria, Denies nocturia, Denies urinary frequency, Denies urinary retention Musculoskeletal: Reports muscle weakness, Denies atrophy, Denies frequent falls, Denies gait dysfunction, Denies leg numbness/tingling, Denies limitation of motion, Denies neck pain, Denies neck stiffness Neurological: Reports weakness, reports confusion, Denies gait dysfunction, Denies headaches, Denies memory loss, Denies numbness, Denies paralysis, Denies seizures, Denies syncope Endocrine: Denies palpitations, Denies weight change Hematologic/Lymphatic: Denies lymphadenopathy Objective - Vital Signs Vital signs: Vital Signs Temp 98.9 F 11/09/18 05:00 Pulse 92 11/09/18 08:00 Resp 18 11/09/18 08:00 BP 117/78 11/09/18 05:00 Pulse Ox 98 11/09/18 05:00 Intake & Output 11/08/18 11/09/18 11/09/18 18:59 06:59 18:59 Output Total 1700 Balance -1700 Weight 81.647 kg 68.5 kg Output: Gastric Drainage 200 Urine 1500 Other: Voiding Method Diaper Diaper Diaper Incontinent Incontinent Incontinent # Voids 1 # Bowel Movements 1 - Exam General appearance: average body habitus, cooperative, no acute distress - EENT Eyes: EOMI, PERRLA, normal appearance ENT: hearing grossly normal, normal oropharynx, no pharyngeal erythema - Neck Neck: no lymphadenopathy, normal ROM, no rigidity, no thyromegaly - Respiratory Respiratory: bilateral: CTA, negative: dullness, rales, rhonchi, wheezing - Cardiovascular Rhythm: regular Heart sounds: normal: S1, S2 - Gastrointestinal General gastrointestinal: decreased bowel sounds, less distended, no hepatomegaly, no organomegaly, soft, tenderness - Neurologic Neurologic: CNII-XII intact - Musculoskeletal Musculoskeletal: generalized weakness, strength equal bilaterally - Psychiatric Psychiatric: A&O x's 3, appropriate affect, intact judgment & insight - Labs CBC & Chem 7: 11/07/18 13:38 11/09/18 07:25 Labs: Abnormal Lab Results - Last 24 Hours (Table) 11/08/18 11/08/18 11/08/18 Range/Units 11:37 11:48 17:31 Sodium 136 L (137-145) mmol/L Chloride (98-107) mmol/L Carbon Dioxide 21 L (22-30) mmol/L BUN 43 H (9-20) mg/dL Glucose (74-99) mg/dL POC Glucose (mg/dL) 104 H 114 H (75-99) mg/dL Calcium 8.0 L (8.4-10.2) mg/dL Magnesium 2.4 H (1.6-2.3) mg/dL Alkaline Phosphatase 171 H (38-126) U/L Albumin 2.8 L (3.5-5.0) g/dL 11/09/18 11/09/18 Range/Units 05:22 07:25 Sodium (137-145) mmol/L Chloride 108 H (98-107) mmol/L Carbon Dioxide (22-30) mmol/L BUN 27 H (9-20) mg/dL Glucose 104 H (74-99) mg/dL POC Glucose (mg/dL) 116 H (75-99) mg/dL Calcium 8.1 L (8.4-10.2) mg/dL Magnesium (1.6-2.3) mg/dL Alkaline Phosphatase (38-126) U/L Albumin (3.5-5.0) g/dL Microbiology - Last 24 Hours (Table) 11/07/18 13:38 Blood Culture - Preliminary Blood No Growth after 24 hours Assessment and Plan Plan: 1. Acute abdominal pain: X-ray shows ileus with bowel narrowing. Consult with Dr. Sebastian appreciated. NG tube has been removed by the patient. Status post barium enema. Continue on Zofran, Protonix and Compazine 2. Acute kidney injury: Secondary to dehydration, continue with IV fluids. 3. Severe dehydration: IV hydration 4. Colon cancer with metastasis: Has been on chemotherapy and sees oncology on regular basis, oncology on consult 5. History of DVT: Continue eliquis 2.5 mg twice a day. 6. Anemia: Secondary to chemotherapy, will monitor CBC. 7. Severe protein calorie malnutrition. Continue TPN. 8. GI prophylaxis. Protonix 40 mg daily 9. DVT prophylaxis. Eliquis. CODE STATUS: Full code Discharge plan: Either home with [facility] or [facility] for subacute rehab. Impression and plan of care have been directed as dictated by the signing physician. Brea Garcia nurse practitioner acting as scribe for signing physician.
[2018-11-09] MEDS: FAT EMULSION 20% 250 ML IV SCH (11:46)
[2018-11-09 11:53] LABS: Glucose,Whole Blood 125 mg/dL (75-99)
[2018-11-09 12:01] LABS: INR 1.1 (<1.2); Partial Thromboplastin Time 31.8 sec (22.0-30.0); Prothrombin Time 11.4 sec (9.0-12.0)
--- NOTE | 2018-11-09 13:47 | P.PN ---
Subjective Progress Note Date: 11/09/18 The patient is seen on rounds. He is having less distention than admission. Still no flatus or bowel movement. He did go for the barium enema this morning. Objective - Vital Signs Vital signs: Vital Signs Temp 98.7 F 11/09/18 12:35 Pulse 84 11/09/18 12:35 Resp 16 11/09/18 12:35 BP 115/81 11/09/18 12:35 Pulse Ox 98 11/09/18 12:35 Intake & Output 11/08/18 11/09/18 11/09/18 18:59 06:59 18:59 Output Total 1700 Balance -1700 Weight 81.647 kg 68.5 kg Output: Gastric Drainage 200 Urine 1500 Other: Voiding Method Diaper Diaper Diaper Incontinent Incontinent Incontinent # Voids 1 # Bowel Movements 1 - Constitutional General appearance: Present: cooperative, no acute distress - Respiratory Respiratory: bilateral: CTA - Gastrointestinal General gastrointestinal: Present: distended, normal bowel sounds. Absent: tenderness (Barium enema report and images were reviewed with the patient and his family) - Labs CBC & Chem 7: 11/07/18 13:38 11/09/18 07:25 Labs: Abnormal Lab Results - Last 24 Hours (Table) 11/08/18 11/09/18 11/09/18 Range/Units 17:31 05:22 07:25 APTT (22.0-30.0) sec Chloride 108 H (98-107) mmol/L BUN 27 H (9-20) mg/dL Glucose 104 H (74-99) mg/dL POC Glucose (mg/dL) 114 H 116 H (75-99) mg/dL Calcium 8.1 L (8.4-10.2) mg/dL 11/09/18 11/09/18 Range/Units 11:09 11:47 APTT 31.8 H (22.0-30.0) sec Chloride (98-107) mmol/L BUN (9-20) mg/dL Glucose (74-99) mg/dL POC Glucose (mg/dL) 125 H (75-99) mg/dL Calcium (8.4-10.2) mg/dL Microbiology - Last 24 Hours (Table) 11/07/18 13:38 Blood Culture - Preliminary Blood No Growth after 24 hours Assessment and Plan Assessment: Colon obstruction due to metastatic colon cancer to the pelvis Protein calorie malnutrition (1) Primary colon cancer without distant metastasis (M0) Current Visit: Yes Status: Acute Code(s): C18.9 - MALIGNANT NEOPLASM OF COLON, UNSPECIFIED SNOMED Code(s): 94410239 (2) Nausea & vomiting Current Visit: No Status: Resolved Code(s): R11.2 - NAUSEA WITH VOMITING, UNSPECIFIED SNOMED Code(s): 15840897 Plan: The findings of the barium enema were discussed with the patient and his family. The pelvic tumor is causing a colonic obstruction. Instilling the barium required high pressure. We discussed operative and nonoperative management. His last PET scan showed the pelvic tumor but there was not evidence of widespread metastatic disease, such as liver bone or other lymph nodes. I feel he has a surgical candidate. This would allow him to begin the drink normally and should give him better quality of life. We will do so discussed the usual course if no surgery is performed. This would likely result in a perforation with him succumbing to sepsis. The Eliquis will be held. We'll continue the TPN. He is requesting to restart his Percocet as the Dilaudid makes him "out of it ". I spoke with Dr. Tariq on the phone. He and his family will discuss this further. I'll follow-up with him tomorrow.
[2018-11-09] MEDS: oxyCODONE-APAP 10-325MG 1 EACH TAB PO PRN ×2 (15:23→20:11)
[2018-11-09] MEDS: MIRTAZAPINE 15 MG TAB PO SCH (20:11)
[2018-11-09] MEDS: MVI IV SCH ×12 (20:12→20:43)
[2018-11-09] MEDS: [UNRECOGNIZED DRUG - OTHER] IV SCH ×12 (20:12→20:43)
[2018-11-09] MEDS: CALCIUM CHLORIDE IV SCH ×12 (20:12→20:43)
[2018-11-09] MEDS: POTASSIUM PHOSPHATE IV SCH ×12 (20:12→20:43)
[2018-11-09] MEDS: SODIUM ACETATE IV SCH ×12 (20:12→20:43)
[2018-11-09 20:23] LABS: Glucose,Whole Blood 104 mg/dL (75-99)
[2018-11-09] MEDS: LACTATED RINGERS 1,000 ML IV SCH (20:43)
--- NOTE | 2018-11-10 00:05 | P.CONS ---
History of Present Illness - Reason for Consult Consult date: 11/09/18 Metastatic Cancer on Chemotherapy Requesting physician: Marley Sebastian - Chief Complaint Obstruction - History of Present Illness Mr Canales is a 57 yr old WM, who had his 1st screening colonoscopy in 08/2013. He was found to have an ulcerated mass in the sigmoid, and multiple polyps. The biopsy of the sigmoid mass was positive for malignancy. CT scan of the A/P on 09/21/13 was negative for any metastases. He underwent subtotal colectomy with ileo-rectal anastomosis on 10/08/13. The surgical pathology revealed a an invasive poorly differentiated adenocarcinoma, arising in an adenomatous polyp, T2, with 0 /23 nodes involved. Multiple other adenomatous polyps (15) were n oted. Genetic testing for FAP and Betancourt syndormes was ordered, but could not be done for insurance reason. Colonoscopy on 05/12/2015 revealed tibular adenoma in the rectum which was removed. He did well until around when he presented with pain and swelling of RLE,initial venous doppler was negative for DVT,he was treated for cellulitis without improvement,he had repeat doppler at Dr Munoz office was was positive for DVT,also he had a CT scan of abdomen/pelvis on 02/22/2016 which revealed 9.4x5.5cm mass in righ pelvis causing significant hydronephrosis.Cystoscopy and ureteral stent placement was attempted but stent could not be placed.He was started on eliquis. On 02/25/2016,CEA was 256.4,creatinine 1.34,CBC unremarkable. On 02/27/2016,FNA of the pelvic mass was positive for adenocarcinoma consistent with colon primary. On 03/09/2016,PET scan revealed very large right pelvic mass,invading the sacrum,multiple lung lesions and hilar nodes. He had right nephrostomy tube placed at [facility] 03/11/2016 he was also evaluated by oncology at [facility] on 03/14/2016 and recommended systemic therapy first. His tumor is LILIBETH. BRAF was negative.KRAS and NRAS were negative ,genetic testing for Betancourt syndrome were negative. 04/08/2016,he started mFOLFOX6.On 06/24/2016,repeat PEt scan revealed significant improvement in the pelvic mass and healing effects in plevic bone. He completed 10 cycles of mFOLFOX on 08/20/2016,which he tolerated well. Repeat PET scan on 09/08/2016 revealed disease progression in his pelvis. He started Avastin/FOLFIRI on 09/25/2016. On 12/01/2016,repeat PET scan revealed stable disease.(reviewed with radiologist). He completed 11 cycles of FOLFIRI/Avastin on 02/26/2017 (he declined the last cycle). He started maintenance xeloda/avastin on 04/15/2017 He had avastin and started xeloda on 05/27/2017,however,he ended up with bleeding in his kidney and retroperitoneal hemorrhage,he was admitted to [facility]. He was discharged from [facility] on 06/28/2017. Repeat PET scan on 08/03/2017 revealed possible progression of his disease in pelvis,chronic right hydronephrosis. He was off xeloda/avastin since 05/27/2017 due to retroperitoeal bleed which resolved,resumed treatment on 06/30/2017. The treatment was held again on 12/30/2017 due to recurrent pyelonephritis. Repeat PET scan on 02/07/2018 revealed stable disease and he decided to take a break from therapy until disease progression. On 07/25/2018,repeat PET scan revealed evidence of disease progression On 09/02/2018,he started Avastin/FOLFIRI At his last OV on 09/23/18 he reported feeling better, especially re the pain in right legs (due to pelvic recurrence of disease),tolerating treatment well, with chronic diarrhea,mild nausea, tolerating eliquis well. His most recent chemo and anti-angiogenesis was on 10/14/18, I did discuss the recent treatment with Dr. Sebastian related to the possible impact of avastin on surgical healing. He was recently discharged with complaints of increased abdominal pain, n/v over the past 3-4 days. Symptoms had progressed, with increased n/v, and inability to keep anything down. He had not had a BM in the past 2 days. He was feeling progressively weaker. He therefore came in to the ER, with CT AP showing possible SBO vs enteritis. He was dehydrated with labs showing ANDREW. On todays discussion with Mr. Burgos and his options regarding surgical i ntervention versus comfort care were given. If the patient felt he would like to continue to proceed with aggressive therapy and treatment the recomendation would be for scope to assess the cause of obstruction prior to surgical intervention. I did inform this of the discussion by Dr. Tariq and Dr. Sebastian regarding this. His overall prognosis is poor and comfort care, hospice care is a resonable option at this time. Review of Systems A 14-point review of systems assessed and completed and all negative except HPI. 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 and that he R kidney hydronephrosis/loss of function because tumor cut off blood supply to that kidney, UTI with sepsis, R leg DVT History of Any Multi-Drug Resistant Organisms: C-DIFF Year Discovered:: 2015 MDRO Source:: Bowel Past Surgical History: Bowel Resection, Cholecystectomy Additional Past Surgical History / Comment(s): Colonectomy, R renal stent at [facility]-other attempts to stent had failed and pt had a ureter perforation, colonoscopies Past Anesthesia/Blood Transfusion Reactions: No Reported Reaction Additional Past Anesthesia/Blood Transfusion Reaction / Comm: Pt has received blood in past without reaction. Past Psychological History: No Psychological Hx Reported Additional Psychological History / Comment(s): Pt resides with his spouse. He uses a cane to ambulate. He drives seldom. He is independent. Smoking Status: Never smoker Past Alcohol Use History: None Reported Past Drug Use History: None Reported - Past Family History Brother(s) Family Medical History: Cancer Additional Family Medical History / Comment(s): One brother had leukemia and another brother from SIDS Father Additional Family Medical History / Comment(s): Father from a ruptured brain aneurysm at the age of 87yrs. Mother Family Medical History: Unable to Obtain Additional Family Medical History / Comment(s): Pt states mother is 87yrs old and does not go to the doctors. Medications and Allergies Home Medications Medication Instructions Recorded Confirmed Type Apixaban [Eliquis] 2.5 mg PO BID 01/11/18 11/07/18 History Diphenox-Atrop 2.5-0.025 mg 1 tab PO QID PRN 01/11/18 11/07/18 History [Lomotil] oxyCODONE-APAP 10-325MG [Percocet 1 - 2 tab PO Q6HR PRN 01/11/18 11/07/18 History 10-325 mg] Allergies Allergy/AdvReac Type Severity Reaction Status Date / Time No Known Allergies Allergy Verified 11/07/18 16:00 Physical Exam Vitals: Vital Signs Temp Pulse Pulse Pulse Pulse Resp BP 11/09/18 12:35 98.7 F 84 16 115/81 11/09/18 08:00 92 92 92 18 11/09/18 05:00 98.9 F 92 18 117/78 11/08/18 23:59 92 18 11/08/18 21:00 98.1 F 83 18 106/64 11/08/18 15:24 92 87 92 16 Pulse Ox 11/09/18 12:35 98 11/09/18 08:00 11/09/18 05:00 98 11/08/18 23:59 11/08/18 21:00 100 11/08/18 15:24 Intake and Output 11/08/18 11/09/18 11/09/18 22:59 06:59 14:59 Output Total 750 Balance -750 Output: Urine 750 Other: Voiding Method Diaper Diaper Diaper Incontinent Incontinent Incontinent # Voids 1 # Bowel Movements 1 Weight 68.5 kg Gen: ALert, NAD Head: NCNT Neck Supple No palpable adenopathy on exam Lungs: Diminished bibasilar, mild increased effort Abdomen: Firm, Tender Heart: Tachy Appears chronically ill LE Edema generalized bilateral Results CBC & Chem 7: 11/07/18 13:38 11/09/18 07:25 Labs: Abnormal Lab Results - Last 24 Hours (Table) 11/08/18 11/09/18 11/09/18 Range/Units 17:31 05:22 07:25 APTT (22.0-30.0) sec Chloride 108 H (98-107) mmol/L BUN 27 H (9-20) mg/dL Glucose 104 H (74-99) mg/dL POC Glucose (mg/dL) 114 H 116 H (75-99) mg/dL Calcium 8.1 L (8.4-10.2) mg/dL 11/09/18 11/09/18 Range/Units 11:09 11:47 APTT 31.8 H (22.0-30.0) sec Chloride (98-107) mmol/L BUN (9-20) mg/dL Glucose (74-99) mg/dL POC Glucose (mg/dL) 125 H (75-99) mg/dL Calcium (8.4-10.2) mg/dL Microbiology - Last 24 Hours (Table) 11/07/18 13:38 Blood Culture - Preliminary Blood No Growth after 24 hours Assessment and Plan Plan: Assessment and Recommendations: 1. Metastatic Colon Cancer - Status POst multiple lines of failed treatments - Most recently Avastin and FOLFIRI 2. Persistent worsening Obstruction - [place] to be secondary to progressive malignancy On todays discussion with Mr. Burgos and his options regarding surgical intervention versus comfort care were given. If the patient felt he would like to continue to proceed with aggressive therapy and treatment the recomendation would be for scope to assess the cause of obstruction prior to surgical interve ntion. I did inform this of the discussion by Dr. Tariq and Dr. Sebastian regarding this. His overall prognosis is poor and comfort care, hospice care is a resonable option at this time. Physician Attest: I have completed the full history and physical, devloped the above impression and plan and agree with above dictation. Dictated as scribe.
[2018-11-10 00:18] LABS: Glucose,Whole Blood 103 mg/dL (75-99)
[2018-11-10] MEDS: INSULIN ASPART (NovoLOG) 100 UNIT/ML VIAL SQ SCH ×5 (02:03→23:58)
[2018-11-10] MEDS: oxyCODONE-APAP 10-325MG 1 EACH TAB PO PRN ×4 (02:08→21:51)
[2018-11-10] MEDS: PROCHLORPERAZINE 10 MG TAB PO SCH ×4 (03:19→21:51)
[2018-11-10] MEDS ORDERED: HYDROmorphone 0.5 MG/0.5 ML SYRINGE IVP STA (04:25)
[2018-11-10 05:27] LABS: Glucose,Whole Blood 133 mg/dL (75-99)
[2018-11-10] MEDS ORDERED: PROPOFOL 10 MG/ML 20 ML VIAL IV ONE (08:08)
[2018-11-10] MEDS ORDERED: IV FLUID CONTINUATION 1,000 ML IV ONE (08:12)
[2018-11-10 08:29] LABS: Albumin 2.6 g/dL (3.5-5.0); Anion Gap 7 mmol/L; Blood Urea Nitrogen 23 mg/dL (9-20); Calcium 8.5 mg/dL (8.4-10.2); Carbon Dioxide 24 mmol/L (22-30); Chloride 110 mmol/L (98-107); Glucose 109 mg/dL (74-99); Phosphorus 4.3 mg/dL (2.5-4.5); Potassium 4.4 mmol/L (3.5-5.1); Sodium 141 mmol/L (137-145)
[2018-11-10 08:31] LABS: Ionized Calcium 5.3 mg/dL (4.5-5.3)
--- NOTE | 2018-11-10 08:34 | P.OP ---
Date of Procedure: 11/10/18 Preoperative Diagnosis: Metastatic colon cancer, concern for bowel obstruction Postoperative Diagnosis: Metastatic colon cancer, anastamotic narrowing with atypical mucosa Procedure(s) Performed: sigmoidoscopy with biopsy Anesthesia: MAC Surgeon: Marley Sebastian Pathology: other Condition: stable Disposition: PACU Indications for Procedure: The patient has metastatic colon cancer with a pelvic mass. His barium enema was suggestive of an obstruction. Discussion had been held with Dr. Dang who requested a sigmoidoscopy. Description of Procedure: The patient's taken the endoscopy suite. He is given informed consent. A colonoscope is passed per rectum to about 40 cm. At 20 cm there is a anastomosis. There is a area of atypical appearing mucosa. The anastomosis is narrow. As I passed the scope I can feel slight resistance which is presumably from the pelvic mass. The scope is able to be passed into the terminal ileum. The terminal ileum has a fairly normal appearance except that its fairly dilated. The scope is withdrawn and the polypoid appearing/atypical mucosa was biopsied with cold biopsy forceps. He tolerated the procedure without difficulty and was taken recovery room in satisfactory condition. Await the report of the biopsies.
[2018-11-10] MEDS: FAT EMULSION 20% 250 ML IV SCH (09:25)
[2018-11-10] MEDS: POTASSIUM PHOSPHATE IV SCH ×6 (09:35)
[2018-11-10] MEDS: CALCIUM CHLORIDE IV SCH ×6 (09:35)
[2018-11-10] MEDS: SODIUM ACETATE IV SCH ×6 (09:35)
[2018-11-10] MEDS: MVI IV SCH ×6 (09:35)
[2018-11-10] MEDS: [UNRECOGNIZED DRUG - OTHER] IV SCH ×6 (09:35)
[2018-11-10 11:16] LABS: Glucose,Whole Blood 132 mg/dL (75-99)
--- NOTE | 2018-11-10 14:10 | P.PN ---
Subjective Progress Note Date: 11/10/18 This is a 57-year-old male patient of Dr. Russ's with past medical history of stage III colon cancer, his been on chemotherapy he is also had metastasis to the spine. Patient is followed by Dr. Dang on a regular basis. Patient was recently discharged from 3 days ago from the hospital with abdominal pain and similar symptoms. Patient was sent home with homecare, he reports he had multiple episodes of vomiting and diarrhea and became increasingly weak. Chest x-ray showed atelectasis at the lateral left lung base that is cleared from previous exam, abdominal x-ray shows dilated bowel possible ileus that was unchanged from previous exam, and possible distal large bowel mechanical obstru ction. Labs show hemoglobin 9, WBC 14.5, sodium 134, BUN 60, creatinine 1.89. He is afebrile, heart rate running in the 90s, blood pressure 120/76, 94% on room air. Surgery and oncology have been consulted, will obtain blood cultures. Patient will be scheduled for barium enema tomorrow to rule out distal bowel obstruction from pelvic tumor mass, and she was placed without difficulty by Dr. Sebastian. 11/09: The patient has been afebrile, heart rate running in the 80s and 90s, blood pressure 117/78, pulse ox 90% on room air. Sodium 140, potassium 3.9, chloride 108, CO2 23, BUN 27, creatinine 0.93. Patient had NG tube placed but after 3 hours he pulled this out. He had episode of confusion and hallucination after receiving Ativan during the NG tube placement. Patient had a sitter at the bedside for brief period and this was discontinued. Abdomen is less distended today. He is on TPN. He's been seen by Dr. Sebastian and underwent a barium enema this morning which revealed bowel narrowing within the pelvis consistent with patient's history of distal bowel obstruction. Surgical plans t o be discussed with the patient and his . Discussed discharge planning and patient's is requesting placement at [facility] for subacute rehab at the time of discharge. Case management and social media marketing specialist following the patient. 11/10: Patient underwent sigmoidoscopy with biopsy today that found metastatic colon cancer, anastomotic narrowing with atypical mucosa. Dr. Sebastian has recommended continuing TPN and she feels he is a surgical candidate. Eliquis has been placed on hold. Dr. Sebastian will discuss with Dr. Tariq. Biopsy is pending. Patient has been afebrile, heart rate in the 70s, blood pressure 112/66, pulse ox 96% on room air. Sodium 141, chloride 110, potassium 4.4, CO2 24, BUN 23, creatinine 0.95. Blood sugars running between 109 and 133. Albumin 2.6. Review of Systems Constitutional: Reports fatigue, Reports weakness, Denies chills, Denies fever Ears, nose, mouth and throat: Denies dysphagia, Denies headache, Denies hoarseness, Denies mouth pain, Denies nasal congestion, Denies nasal discharge, Denies post-nasal drip, Denies sore throat Cardiovascular: Denies chest pain, Denies edema, Denies high blood pressure, Denies leg edema, Denies orthopnea, Denies palpitations, Denies shortness of breath, Denies syncope Respiratory: Denies congestion, Denies cough, Denies dyspnea, Denies pain Gastrointestinal: Reports abdominal pain, reports less abdominal distention, Reports diarrhea, Reports loss of appetite, Reports nausea, Reports vomiting, reports bloating, Denies constipation, Denies dyspepsia, Denies hematemesis Genitourinary: Denies dysuria, Denies flank pain, Denies hematuria, Denies noctu mera, Denies urinary frequency, Denies urinary retention Musculoskeletal: Reports muscle weakness, Denies atrophy, Denies frequent falls, Denies gait dysfunction, Denies leg numbness/tingling, Denies limitation of motion, Denies neck pain, Denies neck stiffness Neurological: Reports weakness, reports confusion, Denies gait dysfunction, Denies headaches, Denies memory loss, Denies numbness, Denies paralysis, Denies seizures, Denies syncope Endocrine: Denies palpitations, Denies weight change Hematologic/Lymphatic: Denies lymphadenopathy Objective - Vital Signs Vital signs: Vital Signs Temp 98.8 F 11/10/18 11:32 Pulse 78 11/10/18 11:32 Resp 16 11/10/18 11:32 BP 112/66 11/10/18 11:32 Pulse Ox 96 11/10/18 11:32 Intake & Output 11/09/18 11/10/18 11/10/18 18:59 06:59 18:59 Intake Total 60 100 Output Total 750 Balance -750 60 100 Weight 75 kg Intake: IV 100 Oral 60 Output: Urine 750 Other: Voiding Method Diaper Diaper Diaper Incontinent Incontinent Incontinent # Voids 1 - Exam General appearance: average body habitus, cooperative, no acute distress, patient resting in bed and patient's is at the bedside - EENT Eyes: EOMI, PERRLA, normal appearance ENT: hearing grossly normal, normal oropharynx, no pharyngeal erythema - Neck Neck: no lymphadenopathy, normal ROM, no rigidity, no thyromegaly - Respiratory Respiratory: bilateral: CTA, negative: dullness, rales, rhonchi, wheezing - Cardiovascular Rhythm: regular Heart sounds: normal: S1, S2 - Gastrointestinal General gastrointestinal: decreased bowel sounds, less distended, no hepatomegaly, no organomegaly, soft, tenderness - Neurologic Neurologic: CNII-XII intact - Musculoskeletal Musculoskeletal: generalized weakness, strength equal bilaterally - Psychiatric Psychiatric: A&O x's 3, appropriate affect, intact judgment & insight - Labs CBC & Chem 7: 11/07/18 13:38 11/10/18 07:37 Labs: Abnormal Lab Results - Last 24 Hours (Table) 11/09/18 11/10/18 11/10/18 Range/Units 20:22 00:17 05:26 Chloride (98-107) mmol/L BUN (9-20) mg/dL Glucose (74-99) mg/dL POC Glucose (mg/dL) 104 H 103 H 133 H (75-99) mg/dL Albumin (3.5-5.0) g/dL 11/10/18 11/10/18 Range/Units 07:37 11:14 Chloride 110 H (98-107) mmol/L BUN 23 H (9-20) mg/dL Glucose 109 H (74-99) mg/dL POC Glucose (mg/dL) 132 H (75-99) mg/dL Albumin 2.6 L (3.5-5.0) g/dL Microbiology - Last 24 Hours (Table) 11/07/18 13:38 Blood Culture - Preliminary Blood No Growth after 48 hours Assessment and Plan Plan: 1. Acute abdominal pain: X-ray shows ileus with bowel narrowing. Consult with Dr. Sebastian appreciated. NG tube has been removed by the patient. Status post barium enema and sigmoidoscopy with biopsy. Continue on Zofran, Protonix and Compazine. Dr. Sebastian and family to decide if surgical intervention will be performed. 2. Acute kidney injury: Secondary to dehydration, continue with IV fluids. 3. Severe dehydration: IV hydration 4. Colon cancer with metastasis: Has been on chemotherapy and sees oncology on regular basis, oncology on consult 5. History of DVT: Continue eliquis 2.5 mg twice a day. 6. Anemia: Secondary to chemotherapy, will monitor CBC. 7. Severe protein calorie malnutrition. Continue TPN. 8. GI prophylaxis. Protonix 40 mg daily 9. DVT prophylaxis. Eliquis. CODE STATUS: Full code Discharge plan: Either home with [facility] or [facility] for subacute rehab. Impression and plan of care have been directed as dictated by the signing physician. Brea Garcia nurse practitioner acting as scribe for signing physician.
[2018-11-10] MEDS: HYDROmorphone 0.5 MG/0.5 ML SYRINGE IVP PRN ×3 (16:22→23:39)
[2018-11-10 17:14] LABS: Glucose,Whole Blood 97 mg/dL (75-99)
[2018-11-10] MEDS: MIRTAZAPINE 15 MG TAB PO SCH (17:23)
[2018-11-10 17:26] LABS: Anisocytosis Slight; Basophils % (A) 0 %; Eosinophils # (A) 0.1 k/uL (0-0.7); Eosinophils % (A) 1 %; HCT 25.8 % (39.0-53.0); Hypochromasia Marked; Lymphocytes # (A) 0.9 k/uL (1.0-4.8); Lymphocytes % (A) 16 %; MCH 23.7 pg (25.0-35.0); MCHC 27.3 g/dL (31.0-37.0); Mean Platelet Volume 7.9; Monocytes # (A) 0.3 k/uL (0-1.0); Monocytes % (A) 6 %; Neutrophils # (A) 4.1 k/uL (1.3-7.7); Neutrophils % (A) 75 %; Platelet Count 306 k/uL (150-450); RBC 2.97 m/uL (4.30-5.90); RDW 18.3 % (11.5-15.5); WBC 5.4 k/uL (3.8-10.6)
[2018-11-10] MEDS: LACTATED RINGERS 1,000 ML IV SCH (19:35)
[2018-11-10] MEDS: [UNRECOGNIZED DRUG - REMARK] IV SCH ×5 (20:20)
--- NOTE | 2018-11-10 23:24 | P.PN ---
Subjective Progress Note Date: 11/10/18 Principal diagnosis: Progressive Cancer Status Post Scope today, Patient seen and evaluated with at bedside. Many questions related to options, potential progression of disease and need for surgical intervention versus conservative watch discussed. Dr. Sebastian did discuss care in detail with Dr. Tariq and myself today. Plan is to monitor for conservative approach. Will increase diet slowly. He does complain increase RLE weakness, and pain. Previously was treated with gabapentin with relief and would like to try again. Objective - Vital Signs Vital signs: Vital Signs Temp 98.8 F 11/10/18 11:32 Pulse 78 11/10/18 11:32 Resp 16 11/10/18 11:32 BP 112/66 11/10/18 11:32 Pulse Ox 96 11/10/18 11:32 Intake & Output 11/09/18 11/10/18 11/10/18 18:59 06:59 18:59 Intake Total 60 100 Output Total 750 Balance -750 60 100 Weight 75 kg Intake: IV 100 Oral 60 Output: Urine 750 Other: Voiding Method Diaper Diaper Diaper Incontinent Incontinent Incontinent # Voids 1 - Exam Gen: ALert, NAD Head: NCNT Neck Supple No palpable adenopathy on exam Lungs: Diminished bibasilar, mild increased effort Abdomen: Firm, Tender Heart: Tachy Appears chronically ill LE Edema generalized bilateral - Labs CBC & Chem 7: 11/10/18 07:37 11/10/18 07:37 Labs: Abnormal Lab Results - Last 24 Hours (Table) 11/09/18 11/10/18 11/10/18 Range/Units 20:22 00:17 05:26 Chloride (98-107) mmol/L BUN (9-20) mg/dL Glucose (74-99) mg/dL POC Glucose (mg/dL) 104 H 103 H 133 H (75-99) mg/dL Albumin (3.5-5.0) g/dL 11/10/18 11/10/18 Range/Units 07:37 11:14 Chloride 110 H (98-107) mmol/L BUN 23 H (9-20) mg/dL Glucose 109 H (74-99) mg/dL POC Glucose (mg/dL) 132 H (75-99) mg/dL Albumin 2.6 L (3.5-5.0) g/dL Microbiology - Last 24 Hours (Table) 11/07/18 13:38 Blood Culture - Preliminary Blood No Growth after 72 hours Assessment and Plan Plan: Assessment and Recommendations: 1. Metastatic Colon Cancer - Status POst multiple lines of failed treatments - Most recently Avastin and FOLFIRI 2. Persistent worsening Obstruction - [place] to be secondary to progressive malignancy Discussed scope, options, and plan to conservatively watch and increase diet as recommended per Dr. Tariq and Dr. Sebastian discussion. I have added gabapentin on for patients increased pain, previously used with success. Physician Attest: I have completed the full history and physical, devloped the above impression and plan and agree with above dictation. Dictated as scribe. Time with Patient: Greater than 30 (counseling and coordinating care greater than 50% of time)
[2018-11-10] MEDS: GABAPENTIN 100 MG CAP PO SCH (23:38)
[2018-11-10 23:52] LABS: Glucose,Whole Blood 135 mg/dL (75-99)
[2018-11-11] MEDS: DIPHENOX-ATROP 2.5-0.025 MG 1 EACH TAB PO PRN (02:15)
[2018-11-11] MEDS: oxyCODONE-APAP 10-325MG 1 EACH TAB PO PRN ×4 (02:15→21:00)
[2018-11-11] MEDS: HYDROmorphone 0.5 MG/0.5 ML SYRINGE IVP PRN ×2 (03:24→06:18)
[2018-11-11] MEDS: PROCHLORPERAZINE 10 MG TAB PO SCH ×4 (03:25→22:56)
[2018-11-11] MEDS: [UNRECOGNIZED DRUG - REMARK] IV SCH ×11 (06:16→17:25)
[2018-11-11 06:17] LABS: Glucose,Whole Blood 103 mg/dL (75-99)
[2018-11-11] MEDS: INSULIN ASPART (NovoLOG) 100 UNIT/ML VIAL SQ SCH ×3 (06:20→17:31)
[2018-11-11] MEDS: FAT EMULSION 20% 250 ML IV SCH (08:43)
[2018-11-11] MEDS: GABAPENTIN 100 MG CAP PO SCH ×2 (08:43→21:00)
[2018-11-11 09:45] LABS: INR 1.1 (<1.2); Prothrombin Time 11.4 sec (9.0-12.0)
[2018-11-11 10:08] LABS: ALT 24 U/L (21-72); AST 37 U/L (17-59); Albumin 2.7 g/dL (3.5-5.0); Alkaline Phosphatase 255 U/L (38-126); Anion Gap 9 mmol/L; Blood Urea Nitrogen 28 mg/dL (9-20); Calcium 8.3 mg/dL (8.4-10.2); Carbon Dioxide 22 mmol/L (22-30); Chloride 108 mmol/L (98-107); Glucose 98 mg/dL (74-99); Magnesium 1.5 mg/dL (1.6-2.3); Phosphorus 4.2 mg/dL (2.5-4.5); Potassium 3.9 mmol/L (3.5-5.1); Sodium 139 mmol/L (137-145); Total Bilirubin 1.5 mg/dL (0.2-1.3); Total Protein 6.8 g/dL (6.3-8.2)
[2018-11-11 11:30] LABS: Glucose,Whole Blood 142 mg/dL (75-99)
[2018-11-11] MEDS: MAGNESIUM SULFATE-D5W PMX 1 GM in DEXTROSE/WATER 1 100ML.BAG IVPB SCH ×2 (13:11→13:50)
[2018-11-11] MEDS ORDERED: ceFAZolin IN SWFI 2 GM/20 ML SYRINGE IVP ONE (14:00)
[2018-11-11] MEDS ORDERED: HEPARIN SODIUM,PORCINE 5,000 UNIT/ML 1 ML VIAL SQ ONE (14:00)
[2018-11-11] MEDS ORDERED: metroNIDAZOLE-NS PMX 500 MG in SALINE 1 100ML.BAG IVPB ONE (14:00)
--- NOTE | 2018-11-11 15:05 | P.PN ---
Subjective Progress Note Date: 11/11/18 This is a 57-year-old male patient of Dr. Russ's with past medical history of stage III colon cancer, his been on chemotherapy he is also had metastasis to the spine. Patient is followed by Dr. Dang on a regular basis. Patient was recently discharged from 3 days ago from the hospital with abdominal pain and similar symptoms. Patient was sent home with homecare, he reports he had multiple episodes of vomiting and diarrhea and became increasingly weak. Chest x-ray showed atelectasis at the lateral left lung base that is cleared from previous exam, abdominal x-ray shows dilated bowel possible ileus that was unchanged from previous exam, and possible distal large bowel mechanical obstru ction. Labs show hemoglobin 9, WBC 14.5, sodium 134, BUN 60, creatinine 1.89. He is afebrile, heart rate running in the 90s, blood pressure 120/76, 94% on room air. Surgery and oncology have been consulted, will obtain blood cultures. Patient will be scheduled for barium enema tomorrow to rule out distal bowel obstruction from pelvic tumor mass, and she was placed without difficulty by Dr. Sebastian. 11/09: The patient has been afebrile, heart rate running in the 80s and 90s, blood pressure 117/78, pulse ox 90% on room air. Sodium 140, potassium 3.9, chloride 108, CO2 23, BUN 27, creatinine 0.93. Patient had NG tube placed but after 3 hours he pulled this out. He had episode of confusion and hallucination after receiving Ativan during the NG tube placement. Patient had a sitter at the bedside for brief period and this was discontinued. Abdomen is less distended today. He is on TPN. He's been seen by Dr. Sebastian and underwent a barium enema this morning which revealed bowel narrowing within the pelvis consistent with patient's history of distal bowel obstruction. Surgical plans t o be discussed with the patient and his . Discussed discharge planning and patient's is requesting placement at [facility] for subacute rehab at the time of discharge. Case management and social services analyst following the patient. 11/10: Patient underwent sigmoidoscopy with biopsy today that found metastatic colon cancer, anastomotic narrowing with atypical mucosa. Dr. Sebastian has recommended continuing TPN and she feels he is a surgical candidate. Eliquis has been placed on hold. Dr. Sebastian will discuss with Dr. Tariq. Biopsy is pending. Patient has been afebrile, heart rate in the 70s, blood pressure 112/66, pulse ox 96% on room air. Sodium 141, chloride 110, potassium 4.4, CO2 24, BUN 23, creatinine 0.95. Blood sugars running between 109 and 133. Albumin 2.6. 11/11: clinic office manager has discussed hospice option with the patient and he is currently waiting to discuss with his and does not want to make a decision. Dr. Sebastian has him scheduled for procedure this afternoon but patient is stating he is not going to undergo surgery. Patient is eating very little. He is still on TPN. Patient has been afebrile, heart rate running in the 70s to 100, blood pressure 103/70, pulse ox 100% on room air. Sodium 139, potassium 3.9, chloride 108, CO2 22, BUN 28 creatinine 0.95. Magnesium 1.5, total bilirubin 1.5, AST 37, ALT 24, alkaline phosphatase 255. Review of Systems Constitutional: Reports fatigue, Reports weakness, Denies chills, Denies fever Ears, nose, mouth and throat: Denies dysphagia, Denies headache, Denies hoarseness, Denies mouth pain, Denies nasal congestion, Denies nasal discharge, Denies post-nasal drip, Denies sore throat Cardiovascular: Denies chest pain, Denies edema, Denies high blood pressure, Denies leg edema, Denies orthopnea, Denies palpitations, Denies shortness of breath, Denies syncope Respiratory: Denies congestion, Denies cough, Denies dyspnea, Denies pain Gastrointestinal: Reports abdominal pain, reports less abdominal distention, Reports diarrhea, Reports loss of appetite, Reports nausea, Reports vomiting, reports bloating, Denies constipation, Denies dyspepsia, Denies hematemesis Genitourinary: Denies dysuria, Denies flank pain, Denies hematuria, Denies nocturia, Denies urinary frequency, Denies urinary retention Musculoskeletal: Reports muscle weakness, Denies atrophy, Denies frequent falls, Denies gait dysfunction, Denies leg numbness/tingling, Denies limitation of motion, Denies neck pain, Denies neck stiffness Neurological: Reports weakness, reports confusion, Denies gait dysfunction, Denies headaches, Denies memory loss, Denies numbness, Denies paralysis, Denies seizures, Denies syncope Hematologic/Lymphatic: Denies lymphadenopathy Objective - Vital Signs Vital signs: Vital Signs Temp 98.1 F 11/11/18 05:00 Pulse 92 11/11/18 05:00 Resp 16 11/11/18 05:00 BP 115/71 11/11/18 05:00 Pulse Ox 98 11/11/18 05:00 Intake & Output 11/10/18 11/11/18 11/11/18 18:59 06:59 18:59 Intake Total 100 1410 Balance 100 1410 Weight 78 kg Intake: IV 100 Intake, IV Titration 1230 Amount Fat Emulsion 20% 250 ml @ 80 20.833 mls/hr IV DAILY MOON Rx#:[id number] Sodium Acetate 20 meq 1000 Potassium Phosphate 10 mmol In Amino Acid 5%- D15w 1,000 ml @ 100 mls/ hr IV .BY DURATION MOON Rx #:[id number] Sodium Acetate 20 meq 150 Potassium Phosphate 10 mmol Mvi, Adult No.4 with Vit K 10 ml Trace (Conc- 1Ml/Dose) 1 ml In Amino Acid 5%-D15w 1,000 ml @ 100 mls/hr IV .BY DURATION MOON Rx#: [id number] Oral 180 Other: Voiding Method Diaper Diaper Incontinent Incontinent # Voids 2 # Bowel Movements 2 - Exam General appearance: average body habitus, cooperative, no acute distress, patient resting in a recliner - EENT Eyes: EOMI, PERRLA, normal appearance ENT: hearing grossly normal, normal oropharynx, no pharyngeal erythema - Neck Neck: no lymphadenopathy, normal ROM, no rigidity, no thyromegaly - Respiratory Respiratory: bilateral: CTA, negative: dullness, rales, rhonchi, wheezing - Cardiovascular Rhythm: regular Heart sounds: normal: S1, S2 - Gastrointestinal General gastrointestinal: decreased bowel sounds, less distended, no hepatomegaly, no organomegaly, soft, tenderness - Neurologic Neurologic: CNII-XII intact - Musculoskeletal Musculoskeletal: generalized weakness, strength equal bilaterally - Psychiatric Psychiatric: A&O x's 3, appropriate affect, intact judgment & insight - Labs CBC & Chem 7: 11/10/18 07:37 11/11/18 08:37 Labs: Abnormal Lab Results - Last 24 Hours (Table) 11/10/18 11/10/18 11/10/18 Range/Units 07:37 11:14 23:51 RBC 2.97 L (4.30-5.90) m/uL Hgb 7.0 L D (13.0-17.5) gm/dL Hct 25.8 L (39.0-53.0) % MCH 23.7 L (25.0-35.0) pg MCHC 27.3 L (31.0-37.0) g/dL RDW 18.3 H (11.5-15.5) % Lymphocytes # 0.9 L (1.0-4.8) k/uL Chloride (98-107) mmol/L BUN (9-20) mg/dL POC Glucose (mg/dL) 132 H 135 H (75-99) mg/dL Calcium (8.4-10.2) mg/dL Magnesium (1.6-2.3) mg/dL Total Bilirubin (0.2-1.3) mg/dL Alkaline Phosphatase (38-126) U/L Albumin (3.5-5.0) g/dL 11/11/18 11/11/18 Range/Units 06:15 08:37 RBC (4.30-5.90) m/uL Hgb (13.0-17.5) gm/dL Hct (39.0-53.0) % MCH (25.0-35.0) pg MCHC (31.0-37.0) g/dL RDW (11.5-15.5) % Lymphocytes # (1.0-4.8) k/uL Chloride 108 H (98-107) mmol/L BUN 28 H (9-20) mg/dL POC Glucose (mg/dL) 103 H (75-99) mg/dL Calcium 8.3 L (8.4-10.2) mg/dL Magnesium 1.5 L (1.6-2.3) mg/dL Total Bilirubin 1.5 H (0.2-1.3) mg/dL Alkaline Phosphatase 255 H (38-126) U/L Albumin 2.7 L (3.5-5.0) g/dL Microbiology - Last 24 Hours (Table) 11/07/18 13:38 Blood Culture - Preliminary Blood No Growth after 72 hours Assessment and Plan Plan: 1. Acute abdominal pain: X-ray shows ileus with bowel narrowing. Consult with Dr. Sebastian appreciated. NG tube has been removed by the patient. Status post barium enema and sigmoidoscopy with biopsy. Continue on Zofran, Protonix and Compazine. Patient family do not want surgical intervention. 2. Acute kidney injury: Secondary to dehydration, continue with IV fluids. 3. Severe dehydration: IV hydration 4. Colon cancer with metastasis: Has been on chemotherapy and sees oncology on regular basis, oncology on consult 5. History of DVT: Continue eliquis 2.5 mg twice a day. 6. Anemia: Secondary to chemotherapy, will monitor CBC. 7. Severe protein calorie malnutrition. Continue TPN. 8. GI prophylaxis. Protonix 40 mg daily 9. DVT prophylaxis. Eliquis. CODE STATUS: Full code Discharge plan: Either home with [facility] or [facility] for subacute rehab. clinic office manager discussing hospice as discharge option. Patient is waiting for his to help make decision. Impression and plan of care have been directed as dictated by the signing physician. Brea Garcia nurse practitioner acting as scribe for signing physician.
[2018-11-11] MEDS: MIRTAZAPINE 15 MG TAB PO SCH ×2 (15:46→17:32)
--- NOTE | 2018-11-11 17:24 | P.PN ---
Subjective Progress Note Date: 11/11/18 Principal diagnosis: Progressive Cancer No vomiting with advancement in diet, Hemoglobin was 7 yesterday, await CBC from today Objective - Vital Signs Vital signs: Vital Signs Temp 98.4 F 11/11/18 11:38 Pulse 109 H 11/11/18 15:19 Resp 16 11/11/18 15:19 BP 103/70 11/11/18 11:38 Pulse Ox 100 11/11/18 11:38 Intake & Output 11/10/18 11/11/18 11/11/18 18:59 06:59 18:59 Intake Total 100 1410 Output Total 100 Balance 100 1410 -100 Weight 78 kg 78 kg Intake: IV 100 Intake, IV Titration 1230 Amount Fat Emulsion 20% 250 ml @ 80 20.833 mls/hr IV DAILY MOON Rx#:[id number] Sodium Acetate 20 meq 1000 Potassium Phosphate 10 mmol In Amino Acid 5%- D15w 1,000 ml @ 100 mls/ hr IV .BY DURATION MOON Rx #:[id number] Sodium Acetate 20 meq 150 Potassium Phosphate 10 mmol Mvi, Adult No.4 with Vit K 10 ml Trace (Conc- 1Ml/Dose) 1 ml In Amino Acid 5%-D15w 1,000 ml @ 100 mls/hr IV .BY DURATION MOON Rx#: [id number] Oral 180 Output: Urine 100 Other: Voiding Method Diaper Diaper Diaper Incontinent Incontinent Incontinent # Voids 2 3 # Bowel Movements 2 - Exam Gen: ALert, NAD Head: NCNT Neck Supple No palpable adenopathy on exam Lungs: Diminished bibasilar, mild increased effort Abdomen: Firm, Tender Heart: Tachy Appears chronically ill LE Edema generalized bilateral - Labs CBC & Chem 7: 11/10/18 07:37 11/11/18 08:37 Labs: Abnormal Lab Results - Last 24 Hours (Table) 11/10/18 11/10/18 11/11/18 Range/Units 07:37 23:51 06:15 RBC 2.97 L (4.30-5.90) m/uL Hgb 7.0 L D (13.0-17.5) gm/dL Hct 25.8 L (39.0-53.0) % MCH 23.7 L (25.0-35.0) pg MCHC 27.3 L (31.0-37.0) g/dL RDW 18.3 H (11.5-15.5) % Lymphocytes # 0.9 L (1.0-4.8) k/uL Chloride (98-107) mmol/L BUN (9-20) mg/dL POC Glucose (mg/dL) 135 H 103 H (75-99) mg/dL Calcium (8.4-10.2) mg/dL Magnesium (1.6-2.3) mg/dL Total Bilirubin (0.2-1.3) mg/dL Alkaline Phosphatase (38-126) U/L Albumin (3.5-5.0) g/dL Carcinoembryonic Ag (0.0-4.9) ng/mL 11/11/18 11/11/18 11/11/18 Range/Units 08:37 08:37 11:29 RBC (4.30-5.90) m/uL Hgb (13.0-17.5) gm/dL Hct (39.0-53.0) % MCH (25.0-35.0) pg MCHC (31.0-37.0) g/dL RDW (11.5-15.5) % Lymphocytes # (1.0-4.8) k/uL Chloride 108 H (98-107) mmol/L BUN 28 H (9-20) mg/dL POC Glucose (mg/dL) 142 H (75-99) mg/dL Calcium 8.3 L (8.4-10.2) mg/dL Magnesium 1.5 L (1.6-2.3) mg/dL Total Bilirubin 1.5 H (0.2-1.3) mg/dL Alkaline Phosphatase 255 H (38-126) U/L Albumin 2.7 L (3.5-5.0) g/dL Carcinoembryonic Ag 11.7 H (0.0-4.9) ng/mL Microbiology - Last 24 Hours (Table) 11/07/18 13:38 Blood Culture - Preliminary Blood No Growth after 96 hours Assessment and Plan Plan: Assessment and Recommendations: 1. Metastatic Colon Cancer - Status POst multiple lines of failed treatments - Most recently Avastin and FOLFIRI 2. Persistent worsening Obstruction - [place] to be secondary to progressive malignancy 3. Persistent Nausea and vomiting: - Improved - Diet increased and improving 4. Normocytic Hypochromic Anemia: Secondary to chemotherapy and malignancy and nutritional deficits - Check CBC today and daily - Transfuse hemoglobin less than 7 Physician Attest: I have completed the full history and physical, devloped the above impression and plan and agree with above dictation. Dictated as scribe.
[2018-11-11 17:27] LABS: Glucose,Whole Blood 139 mg/dL (75-99)
[2018-11-11 18:11] LABS: Anisocytosis Slight; Basophils % (A) 0 %; Eosinophils % (A) 0 %; HCT 24.1 % (39.0-53.0); Hypochromasia Marked; Lymphocytes # (A) 0.8 k/uL (1.0-4.8); Lymphocytes % (A) 8 %; MCH 23.8 pg (25.0-35.0); MCHC 28.7 g/dL (31.0-37.0); MCV 83.1 fL (80.0-100.0); Mean Platelet Volume 6.9; Microcytosis Slight; Monocytes # (A) 0.6 k/uL (0-1.0); Monocytes % (A) 6 %; Neutrophils # (A) 8.3 k/uL (1.3-7.7); Neutrophils % (A) 85 %; Platelet Count 243 k/uL (150-450); RDW 18.8 % (11.5-15.5); WBC 9.8 k/uL (3.8-10.6)
--- NOTE | 2018-11-11 18:24 | P.PN ---
Subjective Progress Note Date: 11/11/18 The patient is seen on rounds. He's tolerating a full liquid diet without nausea or vomiting. He is passing a little liquid stool. Oral intake is poor. He is on TPN. He still having some foot pain. The Neurontin was restarted. Objective - Vital Signs Vital signs: Vital Signs Temp 98.4 F 11/11/18 11:38 Pulse 109 H 11/11/18 15:19 Resp 16 11/11/18 15:19 BP 103/70 11/11/18 11:38 Pulse Ox 100 11/11/18 11:38 Intake & Output 11/10/18 11/11/18 11/11/18 18:59 06:59 18:59 Intake Total 100 1410 Output Total 100 Balance 100 1410 -100 Weight 78 kg 78 kg Intake: IV 100 Intake, IV Titration 1230 Amount Fat Emulsion 20% 250 ml @ 80 20.833 mls/hr IV DAILY MOON Rx#:[id number] Sodium Acetate 20 meq 1000 Potassium Phosphate 10 mmol In Amino Acid 5%- D15w 1,000 ml @ 100 mls/ hr IV .BY DURATION MOON Rx #:[id number] Sodium Acetate 20 meq 150 Potassium Phosphate 10 mmol Mvi, Adult No.4 with Vit K 10 ml Trace (Conc- 1Ml/Dose) 1 ml In Amino Acid 5%-D15w 1,000 ml @ 100 mls/hr IV .BY DURATION MOON Rx#: [id number] Oral 180 Output: Urine 100 Other: Voiding Method Diaper Diaper Diaper Incontinent Incontinent Incontinent # Voids 2 3 # Bowel Movements 2 - Constitutional General appearance: Present: cooperative, no acute distress - Respiratory Respiratory: bilateral: CTA - Cardiovascular Rhythm: regular - Gastrointestinal General gastrointestinal: Present: distended (Distention is increased from yesterday with increased tympany to percussion), normal bowel sounds. Absent: tenderness - Labs CBC & Chem 7: 11/10/18 07:37 11/11/18 08:37 Labs: Abnormal Lab Results - Last 24 Hours (Table) 11/10/18 11/11/18 11/11/18 Range/Units 23:51 06:15 08:37 Chloride 108 H (98-107) mmol/L BUN 28 H (9-20) mg/dL POC Glucose (mg/dL) 135 H 103 H (75-99) mg/dL Calcium 8.3 L (8.4-10.2) mg/dL Magnesium 1.5 L (1.6-2.3) mg/dL Total Bilirubin 1.5 H (0.2-1.3) mg/dL Alkaline Phosphatase 255 H (38-126) U/L Albumin 2.7 L (3.5-5.0) g/dL Carcinoembryonic Ag (0.0-4.9) ng/mL 11/11/18 11/11/18 11/11/18 Range/Units 08:37 11:29 17:26 Chloride (98-107) mmol/L BUN (9-20) mg/dL POC Glucose (mg/dL) 142 H 139 H (75-99) mg/dL Calcium (8.4-10.2) mg/dL Magnesium (1.6-2.3) mg/dL Total Bilirubin (0.2-1.3) mg/dL Alkaline Phosphatase (38-126) U/L Albumin (3.5-5.0) g/dL Carcinoembryonic Ag 11.7 H (0.0-4.9) ng/mL Microbiology - Last 24 Hours (Table) 11/07/18 13:38 Blood Culture - Preliminary Blood No Growth after 96 hours Assessment and Plan (1) Primary colon cancer without distant metastasis (M0) Current Visit: Yes Status: Acute Code(s): C18.9 - MALIGNANT NEOPLASM OF COLON, UNSPECIFIED SNOMED Code(s): 23197886 (2) Nausea & vomiting Current Visit: No Status: Resolved Code(s): R11.2 - NAUSEA WITH VOMITING, UNSPECIFIED SNOMED Code(s): 96165929 (3) Anastomotic stricture of colorectal region Current Visit: Yes Status: Acute Code(s): K91.30 - POSTPROC INTESTINAL OBST, UNSP TO PARTIAL VERSUS COMPLETE SNOMED Code(s): 893196908 Plan: He is tolerating full liquids without pain, nausea, vomiting. He's having very poor oral intake however. The abdomen is much more distended today. Discussed the findings with the patient and his . We'll see how he does with oral intake. Try to get him back on fairly normal oral intake prior to discharge if he does not have surgery. If he is not able to tolerate oral feedings and may need to decide if they want to proceed with surgery. Further recommendations to follow continue TPN at present time
[2018-11-11 18:31] LABS: INR 1.1 (<1.2); Prothrombin Time 11.8 sec (9.0-12.0)
[2018-11-11 18:37] LABS: HGB 6.9 gm/dL (13.0-17.5)
[2018-11-11] MEDS: LACTATED RINGERS 1,000 ML IV SCH (21:04)
[2018-11-11] MEDS: ACETAMINOPHEN TAB 325 MG TAB PO PRN (22:56)
--- NOTE | 2018-11-11 23:02 | XR ---
EXAM: XR Chest, 1 View CLINICAL HISTORY: fever TECHNIQUE: Frontal view of the chest. COMPARISON: 11/07/2018 FINDINGS: Lungs: Unremarkable. No consolidation. Pleural space: Unremarkable. No pneumothorax. Heart: Stable cardiomediastinal silhouette. Mediastinum: See above. Bones/joints: No acute osseous abnormality. Tubes, lines and devices: Stable right chest wall Port-A-Cath. Upper abdomen: Elevated right hemidiaphragm. IMPRESSION: No acute cardiopulmonary process.
[2018-11-11 23:37] LABS: Appearance,Urine Cloudy (Clear); Bacteria,Urine Few /hpf; Bilirubin,Urine Negative (Negative); Blood,Urine Small (Negative); Color,Urine Yellow; Glucose,Urine (UA) Negative (Negative); Ketones,Urine Negative (Negative); Leukocyte Esterase,Urine Large (Negative); Mucus,Urine Rare /hpf; Nitrite,Urine Negative (Negative); PH, Urine 5.5 (5.0-8.0); Protein,Urine Trace (Negative); RBC,Urine 3 /hpf (0-5); Specific Gravity,Urine 1.008 (1.001-1.035); Squamous Epithelial Cell,Urine 1 /hpf (0-4); Urobilinogen,Urine <2.0 mg/dL (<2.0); WBC,Urine 51 /hpf (0-5)
[2018-11-12 00:28] LABS: Glucose,Whole Blood 147 mg/dL (75-99)
[2018-11-12] MEDS: INSULIN ASPART (NovoLOG) 100 UNIT/ML VIAL SQ SCH ×4 (02:00→18:21)
[2018-11-12] MEDS: DIPHENOX-ATROP 2.5-0.025 MG 1 EACH TAB PO PRN (03:11)
[2018-11-12] MEDS: PROCHLORPERAZINE 10 MG TAB PO SCH ×4 (03:13→21:35)
[2018-11-12] MEDS: [UNRECOGNIZED DRUG - REMARK] IV SCH ×19 (03:54→15:57)
[2018-11-12] MEDS: ACETAMINOPHEN TAB 325 MG TAB PO PRN ×2 (05:34→15:59)
[2018-11-12 05:59] LABS: Glucose,Whole Blood 99 mg/dL (75-99)
[2018-11-12] MEDS: GABAPENTIN 100 MG CAP PO SCH ×2 (08:07→20:37)
[2018-11-12] MEDS: FAT EMULSION 20% 250 ML IV SCH (08:07)
[2018-11-12] MEDS: oxyCODONE-APAP 10-325MG 1 EACH TAB PO PRN ×3 (08:53→21:34)
[2018-11-12 10:06] LABS: Anisocytosis Slight; Basophils % (A) 0 %; Eosinophils # (A) 0.1 k/uL (0-0.7); Eosinophils % (A) 1 %; HCT 25.8 % (39.0-53.0); HGB 7.7 gm/dL (13.0-17.5); Hypochromasia Marked; Lymphocytes # (A) 0.8 k/uL (1.0-4.8); Lymphocytes % (A) 8 %; MCHC 29.9 g/dL (31.0-37.0); MCV 83.7 fL (80.0-100.0); Mean Platelet Volume 7.3; Monocytes # (A) 0.5 k/uL (0-1.0); Monocytes % (A) 6 %; Neutrophils # (A) 7.9 k/uL (1.3-7.7); Neutrophils % (A) 84 %; Platelet Count 212 k/uL (150-450); Poikilocytosis Slight; RBC 3.09 m/uL (4.30-5.90); RDW 17.7 % (11.5-15.5); WBC 9.5 k/uL (3.8-10.6)
[2018-11-12 10:29] LABS: ALT 24 U/L (21-72); AST 35 U/L (17-59); Albumin 2.5 g/dL (3.5-5.0); Alkaline Phosphatase 208 U/L (38-126); Anion Gap 9 mmol/L; Blood Urea Nitrogen 31 mg/dL (9-20); Calcium 7.8 mg/dL (8.4-10.2); Carbon Dioxide 21 mmol/L (22-30); Chloride 105 mmol/L (98-107); Glucose 107 mg/dL (74-99); Phosphorus 3.8 mg/dL (2.5-4.5); Potassium 3.4 mmol/L (3.5-5.1); Sodium 135 mmol/L (137-145); Total Bilirubin 2.4 mg/dL (0.2-1.3); Total Protein 6.2 g/dL (6.3-8.2)
[2018-11-12 12:04] LABS: Glucose,Whole Blood 134 mg/dL (75-99)
--- NOTE | 2018-11-12 14:24 | P.PN ---
Subjective Progress Note Date: 11/12/18 Principal diagnosis: Progressive Cancer transfused one unit of PRBC on 11/11/18. He has been having urinary retention, difficulty feeling pelvis. He is slowly advancing diet, appetite still poor. Bladder scan yesterday 600 with yadav insertion. Febrile 102.7 overnight, single read. Re-davis cultured, Urinalysis with Positive Leuk Esterase, awaiting culture. I have asked ID to evaluate with his complicated case and immunocomprised state. WBC are stable and adequate. Albumin remains low, TPN continued. He moved bowels yesterday. Loose. Objective - Vital Signs Vital signs: Vital Signs Temp 98.1 F 11/12/18 12:53 Pulse 89 11/12/18 12:53 Resp 16 11/12/18 12:53 BP 95/57 11/12/18 12:53 Pulse Ox 99 11/12/18 12:53 Intake & Output 11/11/18 11/12/18 11/12/18 18:59 06:59 18:59 Intake Total 740 310 Output Total 100 650 700 Balance -100 90 -390 Weight 78 kg 74 kg Intake: Oral 740 Blood Product 0 310 Rc As-1 Unit 0 310 [id number] Output: Urine 100 650 700 Uretheral (Yadav) 650 Other: Voiding Method Diaper Diaper Incontinent Incontinent # Voids 3 2 # Bowel Movements 5 - Exam Gen: ALert, NAD Head: NCNT Neck Supple No palpable adenopathy on exam Lungs: Diminished bibasilar, mild increased effort Abdomen: Firm, Tender Heart: Tachy Appears chronically ill LE Edema generalized bilateral - Labs CBC & Chem 7: 11/12/18 09:45 11/12/18 09:45 Labs: Abnormal Lab Results - Last 24 Hours (Table) 11/11/18 11/11/18 11/11/18 Range/Units 08:37 17:26 17:30 RBC 2.90 L (4.30-5.90) m/uL Hgb 6.9 L* (13.0-17.5) gm/dL Hct 24.1 L (39.0-53.0) % MCH 23.8 L (25.0-35.0) pg MCHC 28.7 L (31.0-37.0) g/dL RDW 18.8 H (11.5-15.5) % Neutrophils # 8.3 H (1.3-7.7) k/uL Lymphocytes # 0.8 L (1.0-4.8) k/uL Sodium (137-145) mmol/L Potassium (3.5-5.1) mmol/L Carbon Dioxide (22-30) mmol/L BUN (9-20) mg/dL Glucose (74-99) mg/dL POC Glucose (mg/dL) 139 H (75-99) mg/dL Calcium (8.4-10.2) mg/dL Total Bilirubin (0.2-1.3) mg/dL Alkaline Phosphatase (38-126) U/L Total Protein (6.3-8.2) g/dL Albumin (3.5-5.0) g/dL Carcinoembryonic Ag 11.7 H (0.0-4.9) ng/mL Urine Protein (Negative) Urine Blood (Negative) Ur Leukocyte Esterase (Negative) Urine WBC (0-5) /hpf Urine WBC Clumps (None) /hpf Urine Bacteria (None) /hpf Urine Mucus (None) /hpf Crossmatch 11/11/18 11/11/18 11/12/18 Range/Units 19:49 22:23 00:27 RBC (4.30-5.90) m/uL Hgb (13.0-17.5) gm/dL Hct (39.0-53.0) % MCH (25.0-35.0) pg MCHC (31.0-37.0) g/dL RDW (11.5-15.5) % Neutrophils # (1.3-7.7) k/uL Lymphocytes # (1.0-4.8) k/uL Sodium (137-145) mmol/L Potassium (3.5-5.1) mmol/L Carbon Dioxide (22-30) mmol/L BUN (9-20) mg/dL Glucose (74-99) mg/dL POC Glucose (mg/dL) 147 H (75-99) mg/dL Calcium (8.4-10.2) mg/dL Total Bilirubin (0.2-1.3) mg/dL Alkaline Phosphatase (38-126) U/L Total Protein (6.3-8.2) g/dL Albumin (3.5-5.0) g/dL Carcinoembryonic Ag (0.0-4.9) ng/mL Urine Protein Trace H (Negative) Urine Blood Small H (Negative) Ur Leukocyte Esterase Large H (Negative) Urine WBC 51 H (0-5) /hpf Urine WBC Clumps Few H (None) /hpf Urine Bacteria Few H (None) /hpf Urine Mucus Rare H (None) /hpf Crossmatch See Detail 11/12/18 11/12/18 11/12/18 Range/Units 09:45 09:45 12:03 RBC 3.09 L (4.30-5.90) m/uL Hgb 7.7 L (13.0-17.5) gm/dL Hct 25.8 L (39.0-53.0) % MCH (25.0-35.0) pg MCHC 29.9 L (31.0-37.0) g/dL RDW 17.7 H (11.5-15.5) % Neutrophils # 7.9 H (1.3-7.7) k/uL Lymphocytes # 0.8 L (1.0-4.8) k/uL Sodium 135 L (137-145) mmol/L Potassium 3.4 L (3.5-5.1) mmol/L Carbon Dioxide 21 L (22-30) mmol/L BUN 31 H (9-20) mg/dL Glucose 107 H (74-99) mg/dL POC Glucose (mg/dL) 134 H (75-99) mg/dL Calcium 7.8 L (8.4-10.2) mg/dL Total Bilirubin 2.4 H (0.2-1.3) mg/dL Alkaline Phosphatase 208 H (38-126) U/L Total Protein 6.2 L (6.3-8.2) g/dL Albumin 2.5 L (3.5-5.0) g/dL Carcinoembryonic Ag (0.0-4.9) ng/mL Urine Protein (Negative) Urine Blood (Negative) Ur Leukocyte Esterase (Negative) Urine WBC (0-5) /hpf Urine WBC Clumps (None) /hpf Urine Bacteria (None) /hpf Urine Mucus (None) /hpf Crossmatch Microbiology - Last 24 Hours (Table) 11/11/18 22:23 Urine Culture - Preliminary Urine,Voided 11/07/18 13:38 Blood Culture - Preliminary Blood No Growth after 96 hours Assessment and Plan Plan: Assessment and Recommendations: 1. Metastatic Colon Cancer - Status POst multiple lines of failed treatments - Most recently Avastin and FOLFIRI 2. Persistent worsening Obstruction - [place] to be secondary to progressive malignancy 3. Persistent Nausea and vomiting: - Improved - Diet increased and improving 4. Normocytic Hypochromic Anemia: Secondary to chemotherapy and malignancy and nutritional deficits - Check CBC today and daily - Transfuse hemoglobin less than 7 - Status Post Transfusion 11/11/18 5. Febrile overnight - 102.7 and now again at 1600 - Re-davis culture - Fever was single event. - Urinalysis ?UTI - Awaiting Culture - Infectious disease to evaluate - Influenza swab - Cefepime and vanco until Infectious disease assess 6. Abdomen increased distention: - Abdominal and chest xray - Ultrasound to assess for ascites and patient always with many questions and greater than 30 minutes spent with patient and family, greater than 50% of this counseling and coordinating care. Physician Attest: I have completed the full history and physical, devloped the above impression and plan and agree with above dictation. Dictated as scribe.
--- NOTE | 2018-11-12 15:02 | P.PN ---
Subjective Progress Note Date: 11/12/18 This is a 57-year-old male patient of Dr. Russ's with past medical history of stage III colon cancer, his been on chemotherapy he is also had metastasis to the spine. Patient is followed by Dr. Dang on a regular basis. Patient was recently discharged from 3 days ago from the hospital with abdominal pain and similar symptoms. Patient was sent home with homecare, he reports he had multiple episodes of vomiting and diarrhea and became increasingly weak. Chest x-ray showed atelectasis at the lateral left lung base that is cleared from previous exam, abdominal x-ray shows dilated bowel possible ileus that was unchanged from previous exam, and possible distal large bowel mechanical obstru ction. Labs show hemoglobin 9, WBC 14.5, sodium 134, BUN 60, creatinine 1.89. He is afebrile, heart rate running in the 90s, blood pressure 120/76, 94% on room air. Surgery and oncology have been consulted, will obtain blood cultures. Patient will be scheduled for barium enema tomorrow to rule out distal bowel obstruction from pelvic tumor mass, and she was placed without difficulty by Dr. Sebastian. 11/09: The patient has been afebrile, heart rate running in the 80s and 90s, blood pressure 117/78, pulse ox 90% on room air. Sodium 140, potassium 3.9, chloride 108, CO2 23, BUN 27, creatinine 0.93. Patient had NG tube placed but after 3 hours he pulled this out. He had episode of confusion and hallucination after receiving Ativan during the NG tube placement. Patient had a sitter at the bedside for brief period and this was discontinued. Abdomen is less distended today. He is on TPN. He's been seen by Dr. Sebastian and underwent a barium enema this morning which revealed bowel narrowing within the pelvis consistent with patient's history of distal bowel obstruction. Surgical plans t o be discussed with the patient and his . Discussed discharge planning and patient's is requesting placement at [facility] for subacute rehab at the time of discharge. Case management and school social worker following the patient. 11/10: Patient underwent sigmoidoscopy with biopsy today that found metastatic colon cancer, anastomotic narrowing with atypical mucosa. Dr. Sebastian has recommended continuing TPN and she feels he is a surgical candidate. Eliquis has been placed on hold. Dr. Sebastian will discuss with Dr. Tariq. Biopsy is pending. Patient has been afebrile, heart rate in the 70s, blood pressure 112/66, pulse ox 96% on room air. Sodium 141, chloride 110, potassium 4.4, CO2 24, BUN 23, creatinine 0.95. Blood sugars running between 109 and 133. Albumin 2.6. 11/11: supplier manager has discussed hospice option with the patient and he is currently waiting to discuss with his and does not want to make a decision. Dr. Sebastian has him scheduled for procedure this afternoon but patient is stating he is not going to undergo surgery. Patient is eating very little. He is still on TPN. Patient has been afebrile, heart rate running in the 70s to 100, blood pressure 103/70, pulse ox 100% on room air. Sodium 139, potassium 3.9, chloride 108, CO2 22, BUN 28 creatinine 0.95. Magnesium 1.5, total bilirubin 1.5, AST 37, ALT 24, alkaline phosphatase 255. 11/12: Patient is still waiting discussion regarding any surgical intervention with Dr. Sebastian. Patient is more lethargic today. He does open his eyes to verbal stimuli. Oral intake is poor. He is continued on TPN. He has been afebrile, heart rate in the 70s, blood pressure 95/57, pulse ox 99% on room air. White count is 9.5, hemoglobin 7.7, platelet count 212. Sodium 135, potassium 3.4, chloride 105, CO2 21, BUN 31 and creatinine 0.97. Blood sugars running between 99 and 147. Total bilirubin 2.4, AST 35, ALT 24, albumin 2.5, total protein 6.2. Review of Systems Constitutional: Reports fatigue, Reports weakness, reports malaise, Denies chills, Denies fever Ears, nose, mouth and throat: Denies dysphagia, Denies headache, Denies hoarseness, Denies mouth pain, Denies nasal congestion, Denies nasal discharge, Denies post-nasal drip, Denies sore throat Cardiovascular: Denies chest pain, Denies edema, Denies high blood pressure, Denies leg edema, Denies orthopnea, Denies palpitations, Denies shortness of breath, Denies syncope Respiratory: Denies congestion, Denies cough, Denies dyspnea, Denies pain Gastrointestinal: Reports abdominal pain, reports less abdominal distention, Reports diarrhea, Reports loss of appetite, Reports nausea, Reports vomiting, reports bloating, Denies constipation, Denies dyspepsia, Denies hematemesis Genitourinary: Denies dysuria, Denies flank pain, Denies hematuria, Denies nocturia, Denies urinary frequency, Denies urinary retention Musculoskeletal: Reports muscle weakness, Denies atrophy, Denies frequent falls, Denies gait dysfunction, Denies leg numbness/tingling, Denies limitation of motion, Denies neck pain, Denies neck stiffness Neurological: Reports weakness, reports confusion, Denies gait dysfunction, Denies headaches, Denies memory loss, Denies numbness, Denies paralysis, Denies seizures, Denies syncope Hematologic/Lymphatic: Denies lymphadenopathy Objective - Vital Signs Vital signs: Vital Signs Temp 99.6 F 11/12/18 08:35 Pulse 76 11/12/18 08:35 Resp 16 11/12/18 08:35 BP 95/55 11/12/18 08:35 Pulse Ox 99 11/12/18 08:35 Intake & Output 11/11/18 11/12/18 11/12/18 18:59 06:59 18:59 Intake Total 740 310 Output Total 100 650 Balance -100 90 310 Weight 78 kg 74 kg Intake: Oral 740 Blood Product 0 310 Rc As-1 Unit 0 310 [id number] Output: Urine 100 650 Uretheral (Joyner) 650 Other: Voiding Method Diaper Diaper Incontinent Incontinent # Voids 3 2 # Bowel Movements 5 - Exam General appearance: average body habitus, cooperative, no acute distress, patient resting in bed - EENT Eyes: EOMI, PERRLA, normal appearance ENT: hearing grossly normal, normal oropharynx, no pharyngeal erythema - Neck Neck: no lymphadenopathy, normal ROM, no rigidity, no thyromegaly - Respiratory Respiratory: bilateral: CTA, negative: dullness, rales, rhonchi, wheezing - Cardiovascular Rhythm: regular Heart sounds: normal: S1, S2 - Gastrointestinal General gastrointestinal: decreased bowel sounds, less distended, no hepatomegaly, no organomegaly, soft, tenderness - Neurologic Neurologic: CNII-XII intact - Musculoskeletal Musculoskeletal: generalized weakness, strength equal bilaterally - Psychiatric Psychiatric: A&O x's 3, appropriate affect, intact judgment & insight, patient is lethargic but arousable to verbal stimuli. - Labs CBC & Chem 7: 11/12/18 09:45 11/12/18 09:45 Labs: Abnormal Lab Results - Last 24 Hours (Table) 11/11/18 11/11/18 11/11/18 Range/Units 08:37 17:26 17:30 RBC 2.90 L (4.30-5.90) m/uL Hgb 6.9 L* (13.0-17.5) gm/dL Hct 24.1 L (39.0-53.0) % MCH 23.8 L (25.0-35.0) pg MCHC 28.7 L (31.0-37.0) g/dL RDW 18.8 H (11.5-15.5) % Neutrophils # 8.3 H (1.3-7.7) k/uL Lymphocytes # 0.8 L (1.0-4.8) k/uL Sodium (137-145) mmol/L Potassium (3.5-5.1) mmol/L Carbon Dioxide (22-30) mmol/L BUN (9-20) mg/dL Glucose (74-99) mg/dL POC Glucose (mg/dL) 139 H (75-99) mg/dL Calcium (8.4-10.2) mg/dL Total Bilirubin (0.2-1.3) mg/dL Alkaline Phosphatase (38-126) U/L Total Protein (6.3-8.2) g/dL Albumin (3.5-5.0) g/dL Carcinoembryonic Ag 11.7 H (0.0-4.9) ng/mL Urine Protein (Negative) Urine Blood (Negative) Ur Leukocyte Esterase (Negative) Urine WBC (0-5) /hpf Urine WBC Clumps (None) /hpf Urine Bacteria (None) /hpf Urine Mucus (None) /hpf Crossmatch 11/11/18 11/11/18 11/12/18 Range/Units 19:49 22:23 00:27 RBC (4.30-5.90) m/uL Hgb (13.0-17.5) gm/dL Hct (39.0-53.0) % MCH (25.0-35.0) pg MCHC (31.0-37.0) g/dL RDW (11.5-15.5) % Neutrophils # (1.3-7.7) k/uL Lymphocytes # (1.0-4.8) k/uL Sodium (137-145) mmol/L Potassium (3.5-5.1) mmol/L Carbon Dioxide (22-30) mmol/L BUN (9-20) mg/dL Glucose (74-99) mg/dL POC Glucose (mg/dL) 147 H (75-99) mg/dL Calcium (8.4-10.2) mg/dL Total Bilirubin (0.2-1.3) mg/dL Alkaline Phosphatase (38-126) U/L Total Protein (6.3-8.2) g/dL Albumin (3.5-5.0) g/dL Carcinoembryonic Ag (0.0-4.9) ng/mL Urine Protein Trace H (Negative) Urine Blood Small H (Negative) Ur Leukocyte Esterase Large H (Negative) Urine WBC 51 H (0-5) /hpf Urine WBC Clumps Few H (None) /hpf Urine Bacteria Few H (None) /hpf Urine Mucus Rare H (None) /hpf Crossmatch See Detail 11/12/18 11/12/18 Range/Units 09:45 09:45 RBC 3.09 L (4.30-5.90) m/uL Hgb 7.7 L (13.0-17.5) gm/dL Hct 25.8 L (39.0-53.0) % MCH (25.0-35.0) pg MCHC 29.9 L (31.0-37.0) g/dL RDW 17.7 H (11.5-15.5) % Neutrophils # 7.9 H (1.3-7.7) k/uL Lymphocytes # 0.8 L (1.0-4.8) k/uL Sodium 135 L (137-145) mmol/L Potassium 3.4 L (3.5-5.1) mmol/L Carbon Dioxide 21 L (22-30) mmol/L BUN 31 H (9-20) mg/dL Glucose 107 H (74-99) mg/dL POC Glucose (mg/dL) (75-99) mg/dL Calcium 7.8 L (8.4-10.2) mg/dL Total Bilirubin 2.4 H (0.2-1.3) mg/dL Alkaline Phosphatase 208 H (38-126) U/L Total Protein 6.2 L (6.3-8.2) g/dL Albumin 2.5 L (3.5-5.0) g/dL Carcinoembryonic Ag (0.0-4.9) ng/mL Urine Protein (Negative) Urine Blood (Negative) Ur Leukocyte Esterase (Negative) Urine WBC (0-5) /hpf Urine WBC Clumps (None) /hpf Urine Bacteria (None) /hpf Urine Mucus (None) /hpf Crossmatch Microbiology - Last 24 Hours (Table) 11/11/18 22:23 Urine Culture - Preliminary Urine,Voided 11/07/18 13:38 Blood Culture - Preliminary Blood No Growth after 96 hours Assessment and Plan Plan: 1. Acute abdominal pain: X-ray shows ileus with bowel narrowing. Consult with Dr. Sebastian appreciated. NG tube has been removed by the patient. Status post barium enema and sigmoidoscopy with biopsy. Continue on Zofran, Protonix and Compazine. Patient family do not want surgical intervention. Awaiting determination regarding surgery. Eliquis is on hold. 2. Acute kidney injury: Secondary to dehydration, continue with IV fluids. 3. Severe dehydration: IV hydration 4. Colon cancer with metastasis: Has been on chemotherapy and sees oncology on regular basis, oncology on consult 5. History of DVT: Continue eliquis 2.5 mg twice a day. 6. Anemia: Secondary to chemotherapy, will monitor CBC. 7. Severe protein calorie malnutrition. Continue TPN. 8. GI prophylaxis. Protonix 40 mg daily 9. DVT prophylaxis. Eliquis. CODE STATUS: Full code Discharge plan: Either home with [facility] or [facility] for subacute rehab. supplier manager discussing hospice as discharge option. Patient is waiting for his to help make decision. Impression and plan of care have been directed as dictated by the signing physician. Brea Garcia nurse practitioner acting as scribe for signing physician.
[2018-11-12] MEDS: POTASSIUM CHLORIDE 20 MEQ in WATER FOR INJECTION 1 100ML.BAG IVPB SCH ×2 (15:19→18:20)
[2018-11-12] MEDS ORDERED: VANCOMYCIN IV PER PHARMACY 1 EACH MISC MISCELLANE PRN (16:31)
[2018-11-12] MEDS: MIRTAZAPINE 15 MG TAB PO SCH (17:22)
[2018-11-12] MEDS: CEFEPIME 2 GM in SODIUM CHLORIDE 0.9% 100 ML IVPB SCH (17:50)
[2018-11-12] MEDS ORDERED: VANCOMYCIN 1,500 MG in SODIUM CHLORIDE 0.9% 250 ML IVPB ONE (18:00)
[2018-11-12 18:04] LABS: Glucose,Whole Blood 166 mg/dL (75-99)
--- NOTE | 2018-11-12 18:04 | P.PN ---
Subjective Progress Note Date: 11/12/18 The patient seen on rounds. He is eating better. About 50% of breakfast and lunch. His says this is the most he's eaten in a month. Denies any nausea or vomiting. Passing a fairly normal bowel movement for him Objective - Vital Signs Vital signs: Vital Signs Temp 98.1 F 11/12/18 12:53 Pulse 89 11/12/18 12:53 Resp 16 11/12/18 12:53 BP 95/57 11/12/18 12:53 Pulse Ox 99 11/12/18 12:53 Intake & Output 11/11/18 11/12/18 11/12/18 18:59 06:59 18:59 Intake Total 740 310 Output Total 100 650 700 Balance -100 90 -390 Weight 78 kg 74 kg Intake: Oral 740 Blood Product 0 310 Rc As-1 Unit 0 310 [id number] Output: Urine 100 650 700 Uretheral (Joyner) 650 Other: Voiding Method Diaper Diaper Incontinent Incontinent # Voids 3 2 # Bowel Movements 5 - Constitutional General appearance: Present: cooperative, no acute distress - Gastrointestinal General gastrointestinal: Present: distended (And tympanitic), normal bowel sounds. Absent: tenderness - Labs CBC & Chem 7: 11/12/18 09:45 11/12/18 09:45 Labs: Abnormal Lab Results - Last 24 Hours (Table) 11/11/18 11/11/18 11/11/18 Range/Units 17:30 19:49 22:23 RBC 2.90 L (4.30-5.90) m/uL Hgb 6.9 L* (13.0-17.5) gm/dL Hct 24.1 L (39.0-53.0) % MCH 23.8 L (25.0-35.0) pg MCHC 28.7 L (31.0-37.0) g/dL RDW 18.8 H (11.5-15.5) % Neutrophils # 8.3 H (1.3-7.7) k/uL Lymphocytes # 0.8 L (1.0-4.8) k/uL Sodium (137-145) mmol/L Potassium (3.5-5.1) mmol/L Carbon Dioxide (22-30) mmol/L BUN (9-20) mg/dL Glucose (74-99) mg/dL POC Glucose (mg/dL) (75-99) mg/dL Calcium (8.4-10.2) mg/dL Total Bilirubin (0.2-1.3) mg/dL Alkaline Phosphatase (38-126) U/L Total Protein (6.3-8.2) g/dL Albumin (3.5-5.0) g/dL Urine Protein Trace H (Negative) Urine Blood Small H (Negative) Ur Leukocyte Esterase Large H (Negative) Urine WBC 51 H (0-5) /hpf Urine WBC Clumps Few H (None) /hpf Urine Bacteria Few H (None) /hpf Urine Mucus Rare H (None) /hpf Crossmatch See Detail 11/12/18 11/12/18 11/12/18 Range/Units 00:27 09:45 09:45 RBC 3.09 L (4.30-5.90) m/uL Hgb 7.7 L (13.0-17.5) gm/dL Hct 25.8 L (39.0-53.0) % MCH (25.0-35.0) pg MCHC 29.9 L (31.0-37.0) g/dL RDW 17.7 H (11.5-15.5) % Neutrophils # 7.9 H (1.3-7.7) k/uL Lymphocytes # 0.8 L (1.0-4.8) k/uL Sodium 135 L (137-145) mmol/L Potassium 3.4 L (3.5-5.1) mmol/L Carbon Dioxide 21 L (22-30) mmol/L BUN 31 H (9-20) mg/dL Glucose 107 H (74-99) mg/dL POC Glucose (mg/dL) 147 H (75-99) mg/dL Calcium 7.8 L (8.4-10.2) mg/dL Total Bilirubin 2.4 H (0.2-1.3) mg/dL Alkaline Phosphatase 208 H (38-126) U/L Total Protein 6.2 L (6.3-8.2) g/dL Albumin 2.5 L (3.5-5.0) g/dL Urine Protein (Negative) Urine Blood (Negative) Ur Leukocyte Esterase (Negative) Urine WBC (0-5) /hpf Urine WBC Clumps (None) /hpf Urine Bacteria (None) /hpf Urine Mucus (None) /hpf Crossmatch 11/12/18 Range/Units 12:03 RBC (4.30-5.90) m/uL Hgb (13.0-17.5) gm/dL Hct (39.0-53.0) % MCH (25.0-35.0) pg MCHC (31.0-37.0) g/dL RDW (11.5-15.5) % Neutrophils # (1.3-7.7) k/uL Lymphocytes # (1.0-4.8) k/uL Sodium (137-145) mmol/L Potassium (3.5-5.1) mmol/L Carbon Dioxide (22-30) mmol/L BUN (9-20) mg/dL Glucose (74-99) mg/dL POC Glucose (mg/dL) 134 H (75-99) mg/dL Calcium (8.4-10.2) mg/dL Total Bilirubin (0.2-1.3) mg/dL Alkaline Phosphatase (38-126) U/L Total Protein (6.3-8.2) g/dL Albumin (3.5-5.0) g/dL Urine Protein (Negative) Urine Blood (Negative) Ur Leukocyte Esterase (Negative) Urine WBC (0-5) /hpf Urine WBC Clumps (None) /hpf Urine Bacteria (None) /hpf Urine Mucus (None) /hpf Crossmatch Microbiology - Last 24 Hours (Table) 11/07/18 13:38 Blood Culture - Preliminary Blood No Growth after 120 hours 11/11/18 22:23 Urine Culture - Preliminary Urine,Voided Assessment and Plan (1) Primary colon cancer without distant metastasis (M0) Current Visit: Yes Status: Acute Code(s): C18.9 - MALIGNANT NEOPLASM OF COLON, UNSPECIFIED SNOMED Code(s): 25157065 (2) Nausea & vomiting Current Visit: No Status: Resolved Code(s): R11.2 - NAUSEA WITH VOMITING, UNSPECIFIED SNOMED Code(s): 12127499 (3) Anastomotic stricture of colorectal region Current Visit: Yes Status: Acute Code(s): K91.30 - POSTPROC INTESTINAL OBST, UNSP TO PARTIAL VERSUS COMPLETE SNOMED Code(s): 032637552 (4) Fever Current Visit: Yes Status: Acute Code(s): R50.9 - FEVER, UNSPECIFIED SNOMED Code(s): 130528773 (5) UTI (urinary tract infection) Current Visit: No Status: Acute Code(s): N39.0 - URINARY TRACT INFECTION, SITE NOT SPECIFIED SNOMED Code(s): 51962321 Plan: The patient is being worked up for his fever and antibiotics have been started. Currently the patient is tolerating a diet. We'll monitor the oral intake. If he develops recurrent nausea/vomiting/abdominal pain will seriously need to readdress the anastomotic stricture. Also explained he and his family that would like to have him eating fairly normally to make sure he can continue this at home. We'll recheck him tomorrow
--- NOTE | 2018-11-12 19:53 | XR ---
EXAMINATION TYPE: XR chest 2V DATE OF EXAM: 11/12/2018 COMPARISON: NONE HISTORY: Fever TECHNIQUE: Frontal and lateral views of the chest are obtained. FINDINGS: Heart and mediastinum are normal. Lungs are clear of infiltrate. There is no pleural effus ion. There is right central venous catheter with tip in the superior vena cava. IMPRESSION: No active cardiopulmonary disease. Normal heart. No change.
--- NOTE | 2018-11-12 19:56 | XR ---
EXAMINATION TYPE: XR abdomen 2V DATE OF EXAM: 11/12/2018 COMPARISON: 11/07/2018 HISTORY: Abdominal distention TECHNIQUE: 3 views supine and upright FINDINGS: There is gaseous distention of large and small bowel loops. There is no sign of free air. L ce bases are clear. IMPRESSION: Distended and dilated bowel with gas consistent with ileus or partial mechanical obstruct ion. No change compared to last exam. No free air
[2018-11-12] MEDS: LACTATED RINGERS 1,000 ML IV SCH (20:33)
[2018-11-12 21:07] LABS: Appearance,Urine Cloudy (Clear); Bacteria,Urine Rare /hpf; Bilirubin,Urine 1+ (Negative); Blood,Urine Moderate (Negative); Color,Urine Yellow; Glucose,Urine (UA) Negative (Negative); Ketones,Urine Negative (Negative); Leukocyte Esterase,Urine Large (Negative); Mucus,Urine Rare /hpf; Nitrite,Urine Negative (Negative); Protein,Urine 1+ (Negative); RBC,Urine 5 /hpf (0-5); Specific Gravity,Urine 1.019 (1.001-1.035); Urobilinogen,Urine <2.0 mg/dL (<2.0)
[2018-11-12 23:33] LABS: Glucose,Whole Blood 131 mg/dL (75-99)
[2018-11-13] MEDS: INSULIN ASPART (NovoLOG) 100 UNIT/ML VIAL SQ SCH ×4 (00:10→18:26)
[2018-11-13] MEDS: CEFEPIME 2 GM in SODIUM CHLORIDE 0.9% 100 ML IVPB SCH ×2 (00:19→11:26)
[2018-11-13] MEDS: oxyCODONE-APAP 10-325MG 1 EACH TAB PO PRN ×5 (02:19→23:33)
[2018-11-13] MEDS: [UNRECOGNIZED DRUG - REMARK] IV SCH ×21 (02:20→20:05)
[2018-11-13] MEDS: ACETAMINOPHEN TAB 325 MG TAB PO PRN (03:50)
[2018-11-13] MEDS: PROCHLORPERAZINE 10 MG TAB PO SCH ×4 (03:55→20:04)
[2018-11-13] MEDS ORDERED: VANCOMYCIN 1,250 MG in SODIUM CHLORIDE 0.9% 250 ML IVPB SCH (06:00)
[2018-11-13 06:26] LABS: Glucose,Whole Blood 133 mg/dL (75-99)
[2018-11-13] MEDS: FAT EMULSION 20% 250 ML IV SCH (07:59)
[2018-11-13] MEDS: GABAPENTIN 100 MG CAP PO SCH ×2 (08:08→20:04)
[2018-11-13 08:16] LABS: Anion Gap 8 mmol/L; Blood Urea Nitrogen 29 mg/dL (9-20); Calcium 7.9 mg/dL (8.4-10.2); Carbon Dioxide 22 mmol/L (22-30); Chloride 105 mmol/L (98-107); Glucose 113 mg/dL (74-99); Magnesium 2.1 mg/dL (1.6-2.3); Phosphorus 3.9 mg/dL (2.5-4.5); Potassium 4.2 mmol/L (3.5-5.1); Sodium 135 mmol/L (137-145)
--- NOTE | 2018-11-13 08:27 | US ---
EXAMINATION TYPE: US abdomen comp/pelvis limited DATE OF EXAM: 11/13/2018 COMPARISON: CT abdomen and pelvis October 22, 2018 CLINICAL HISTORY: Increased Distention. Abdominal distention, history of colon cancer EXAM MEASUREMENTS: Liver Length: 14.4 cm Gallbladder Wall: 0.4 cm CBD: 0.3 cm Spleen: 12.6 cm Right Kidney: 14.3 x 5.9 x 5.6 cm Left Kidney: 13.6 x 7.1 x 5.8 cm Technical limitations due to large amount of overlying bowel content Pancreas: Obscured by bowel gas Liver: limited evaluation, only visualized intercostally, cystic area = 4.1 x 2.8 x 3.5cm Gallbladder: limited evaluation CBD: limited evaluation Spleen: appears wnl Right Kidney: limited evaluation, probable hydronephrosis noted Left Kidney: mild hydronephrosis Upper IVC: Obscured by overlying bowel gas Abd Aorta: Obscured by overlying bowel gas Bladder: Joyner catheter Mass like area RLQ adjacent to kidney Joyner catheter is in decompressed bladder which is thus suboptimally evaluated. There is suboptimal e valuation of pancreas on images saved secondary to shadowing from overlying bowel gas. Visualized derrick er redemonstrates 4.1 cm simple appearing thin-walled cyst right hepatic lobe. Severe right-sided hyd ronephrosis is redemonstrated. There is lobulated right lower quadrant/upper pelvic mass or adenopath y redemonstrated likely causing obstructive severe right-sided hydronephrosis. Spleen is upper limits of normal in size. There is now felt new mild to moderate left-sided hydronephrosis raising concern for enlarging right-sided lower quadrant and pelvic masses. No ascites is evident on images saved. IMPRESSION: Suboptimal study. No ascites is evident. Severe right-sided hydronephrosis redemonstrated . New mild to moderate left-sided hydronephrosis suspected.
--- NOTE | 2018-11-13 10:25 | P.CONS ---
History of Present Illness - Reason for Consult Consult date: 11/13/18 Fever overnight, positive UTI - History of Present Illness This is a 58-year-old male patient with history of adenocarcinoma of the sigmoid status post subtotal colectomy with ileorectal anastomosis in 2013, colonoscopy on 05/12/2015 revealed tibular adenoma in the rectum which was removed. December 2015 he was positive for DVT and he was started on eliquis. He underwent CT scan of abdomen/pelvis on 02/22/2016 which revealed 9.4x5.5cm mass in righ pelvis causing significant hydronephrosis. Cystoscopy and ureteral stent placement was attempted but stent could not be placed. On 02/27/2016, FNA of the pelvic mass was positive for adenocarcinoma consistent with colon primary. PET scan revealed very large right pelvic mass invading the sacrum with multiple lung lesions and hilar nodes. He had right nephrostomy tube placed at and he was also evaluated by oncology at on 03/14/2016 and recommended systemic therapy first. He completed 10 cycles of mFOLFOX. Repeat PET scan on 09/08/2016 revealed disease progression in his pelvis and he completed 11 cycles of FOLFIRI/Avastin on 02/26/2017 (he declined the last cycle). He started maintenance xeloda/avastin he ended up with bleeding in his kidney and retr operitoneal hemorrhage and treated at [facility]. Repeat PET scan in July 2017 revealed progression of his disease in the pelvis with chronic right hydronephrosis. He has been intermittently on Xeloda/Avastin. In August of this year, he started Avastin/FOLFIRI. He had a recent hospitalization for October 22 through November 03 for abdominal pain and diarrhea secondary to chemotherapy or enteritis and acute kidney injury with dehydration with complaints of generalized abdominal pain, lack of appetite and inability to keep food down. He was treated with TPN and started on Remeron and eventually discharged home. At home, he did not have a bowel movement for 2 days he was feeling increasing weakness and came back to the emergency center for evaluation. Abdominal x-ray showed dilated bowel possible ileus that was unchanged from previous exam with possible distal large bowel mechanical obstruction. Chest x-ray showed atelectasis in the lateral left lung base that is cleared from previous exam. He underwent a barium enema that showed bowel narrowing within the pelvis consistent with patient's history of distal bowel obstruction. Cystoscopy was done which showed metastatic colon cancer, anastomotic narrowing with atypical mucosa. Pathology was consistent with benign enteric mucosa consistent with coloenteric anastomosis. Patient was found to have temperature of 102.7 on November 11 on one reading and 101.6 on November 13. He underwent a chest x-ray that revealed no active cardiopulmonary disease. Abdominal x-ray shows distended and dilated bowels with gas consistent with ileus or partial mechanical obstruction. No change compared to last exam. Ultrasound of the abdomen and pelvis reveals suboptimal study. No ascites evident. Severe right-sided hydronephrosis redemonstrated. New [id number] left-sided hydronephrosis suspected. Influenza testing negative. Yesterday, patient was started on cefepime and vancomycin. Patient denies having any fever or chills today. He apparently is eating very little. He is not interested in taking any protein supplements including Ensure, Vardaman instant breakfast or Magic cups. Dietitian is attempting to supply a protein rich diet for him with limitations. Patient is only getting up to the bathroom rarely. He is mostly staying in bed. He complains of significant weakness. He denies having any pain with urination or increased frequency. He had Joyner catheter placed for retention. He has generalized abdominal pain which is been chronic. He denies suprapubic pain and flank pain. He states he is tolerating a diet and plan with Dr. Sebastian is to monitor tolerance of his diet over the weekend. Patient has verbalized to staff yesterday and the day before that he does not want to undergo surgery. Hospice has been addressed with the patient from oncology on this admission and previous admission and patient is declining. Revisited today and patient also states he is not ready for hospice and did not want hospice informational meeting. Review of Systems All systems: negative Constitutional: Reports anorexia, Reports fatigue, Reports lethargy, Reports malaise, Reports poor appetite, Reports weakness, Denies chills, Denies fever, Denies weight loss Eyes: denies blurred vision, denies pain Ears, nose, mouth and throat: Denies dysphagia, Denies headache, Denies nasal congestion, Denies nasal discharge, Denies sore throat Cardiovascular: Reports lightheadedness, Denies chest pain, Denies dyspnea on exertion, Denies edema, Denies shortness of breath, Denies syncope Respiratory: Denies cough, Denies cough with sputum, Denies dyspnea, Denies excessive sputum, Denies hemoptysis, Denies home oxygen, Denies wheezing Gastrointestinal: Reports abdominal pain, Reports loss of appetite, Denies diarrhea, Denies nausea, Denies vomiting Genitourinary: Reports urinary retention, Denies dysuria, Denies flank pain, Denies urinary frequency Musculoskeletal: Denies frequent falls, Denies gait dysfunction, Denies myalgias Integumentary: Denies pruritus, Denies rash, Denies wounds Neurological: Denies aphasia, Denies change in mentation, Denies confusion, Denies numbness, Denies seizures, Denies weakness Psychiatric: Denies anxiety, Denies depression Endocrine: Denies fatigue, Denies weight change 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 and that he R kidney hydronephrosis/loss of function because tumor cut off blood supply to that kidney, UTI with sepsis, R leg DVT History of Any Multi-Drug Resistant Organisms: C-DIFF Year Discovered:: 2016 MDRO Source:: Bowel Past Surgical History: Bowel Resection, Cholecystectomy Additional Past Surgical History / Comment(s): Colonectomy, R renal stent at [facility]-other attempts to stent had failed and pt had a ureter perforation, colonoscopies Past Anesthesia/Blood Transfusion Reactions: No Reported Reaction Additional Past Anesthesia/Blood Transfusion Reaction / Comm: Pt has received blood in past without reaction. Past Psychological History: No Psychological Hx Reported Additional Psychological History / Comment(s): Pt resides with his spouse. He uses a cane to ambulate. He drives seldom. He is independent. Smoking Status: Never smoker Past Alcohol Use History: None Reported Past Drug Use History: None Reported - Past Family History Brother(s) Family Medical History: Cancer Additional Family Medical History / Comment(s): One brother had leukemia and another brother from SIDS Father Additional Family Medical History / Comment(s): Father from a ruptured brain aneurysm at the age of 87yrs. Mother Family Medical History: Unable to Obtain Additional Family Medical History / Comment(s): Pt states mother is 87yrs old and does not go to the doctors. Medications and Allergies Home Medications Medication Instructions Recorded Confirmed Type Apixaban [Eliquis] 2.5 mg PO BID 01/11/18 11/07/18 History Diphenox-Atrop 2.5-0.025 mg 1 tab PO QID PRN 01/11/18 11/07/18 History [Lomotil] oxyCODONE-APAP 10-325MG [Percocet 1 - 2 tab PO Q6HR PRN 01/11/18 11/07/18 History 10-325 mg] Allergies Allergy/AdvReac Type Severity Reaction Status Date / Time lorazepam [From Ativan] AdvReac Hallucinati Verified 11/12/18 15:41 ons Physical Exam Vitals: Vital Signs Temp Pulse Pulse Resp BP Pulse Ox 11/13/18 07:30 97.6 F 69 14 98/65 100 11/13/18 06:03 98.3 F 11/13/18 04:13 101.6 F H 112 H 16 95/62 97 11/12/18 23:43 98.3 F 82 16 100/60 98 11/12/18 19:49 99.7 F H 104 H 16 97/59 98 11/12/18 16:00 89 16 11/12/18 12:53 98.1 F 89 16 95/57 99 Intake and Output 11/12/18 11/13/18 11/13/18 22:59 06:59 14:59 Intake Total 320 1000 Output Total 1350 550 Balance -1030 450 Intake: Intake, IV Titration 1000 Amount Cefepime 2 gm In Sodium 100 Chloride 0.9% 100 ml @ 200 mls/hr IVPB Q8HR MOON Rx#:[id number] Sodium Acetate 20 meq 900 Potassium Phosphate 10 mmol Mvi, Adult No.4 with Vit K 10 ml Trace (Conc- 1Ml/Dose) 1 ml Magnesium Sulfate gm 1 gm Calcium Gluconate 0.5 gm In Amino Acid 5%-D15w 1,000 ml @ 100 mls/hr IV .BY DURATION MOON Rx#: [id number] Oral 320 Output: Urine 1350 550 Uretheral (Joyner) 650 550 Other: Voiding Method Indwelling Catheter Indwelling Catheter # Voids 2 # Bowel Movements 2 1 Weight 75.4 kg Gen: This is a thin 58-year-old male. He is resting in bed and appears to be comfortable and in no acute distress. HEENT: Head is atraumatic, normocephalic. Pupils equal, round. Sclerae is anicteric. Oral mucous membranes are moist. Lesions noted on the soft palate and tongue. NECK: Supple. No JVD. No lymphadenopathy. No thyromegaly. LUNGS: Clear to auscultation. No wheezes or rhonchi. No intercostal retractions. HEART: Regular rate and rhythm. No murmur. ABDOMEN: Slightly distended. Soft. Bowel sounds are present. No masses. No tenderness. Joyner with dark orange urine EXTREMITIES: No pedal edema. No calf tenderness. Dorsalis pedis +1 bilaterally. NEUROLOGICAL: Patient is awake, alert and oriented x3. Cranial nerves 2 through 12 are grossly intact. Results Results: Laboratory Results WBC 9.5 k/uL (3.8-10.6) 11/12/18 09:45 RBC 3.09 m/uL (4.30-5.90) L 11/12/18 09:45 Hgb 7.7 gm/dL (13.0-17.5) L 11/12/18 09:45 Hct 25.8 % (39.0-53.0) L 11/12/18 09:45 MCV 83.7 fL (80.0-100.0) 11/12/18 09:45 MCH 25.0 pg (25.0-35.0) 11/12/18 09:45 MCHC 29.9 g/dL (31.0-37.0) L 11/12/18 09:45 RDW 17.7 % (11.5-15.5) H 11/12/18 09:45 Plt Count 212 k/uL (150-450) 11/12/18 09:45 Neutrophils % 84 % 11/12/18 09:45 Lymphocytes % 8 % 11/12/18 09:45 Monocytes % 6 % 11/12/18 09:45 Eosinophils % 1 % 11/12/18 09:45 Basophils % 0 % 11/12/18 09:45 Neutrophils # 7.9 k/uL (1.3-7.7) H 11/12/18 09:45 Lymphocytes # 0.8 k/uL (1.0-4.8) L 11/12/18 09:45 Monocytes # 0.5 k/uL (0-1.0) 11/12/18 09:45 Eosinophils # 0.1 k/uL (0-0.7) 11/12/18 09:45 Basophils # 0.0 k/uL (0-0.2) 11/12/18 09:45 Hypochromasia Marked 11/12/18 09:45 Poikilocytosis Slight 11/12/18 09:45 Anisocytosis Slight 11/12/18 09:45 Microcytosis Slight 11/11/18 17:30 PT 11.8 sec (9.0-12.0) 11/11/18 17:30 INR 1.1 (<1.2) 11/11/18 17:30 APTT 30.0 sec (22.0-30.0) 11/11/18 17:30 Sodium 135 mmol/L (137-145) L 11/13/18 07:25 Potassium 4.2 mmol/L (3.5-5.1) 11/13/18 07:25 Chloride 105 mmol/L (98-107) 11/13/18 07:25 Carbon Dioxide 22 mmol/L (22-30) 11/13/18 07:25 Anion Gap 8 mmol/L 11/13/18 07:25 BUN 29 mg/dL (9-20) H 11/13/18 07:25 Creatinine 1.01 mg/dL (0.66-1.25) 11/13/18 07:25 Est GFR (CKD-EPI)AfAm >90 (>60 ml/min/1.73 sqM) 11/13/18 07:25 Est GFR (CKD-EPI)NonAf 81 (>60 ml/min/1.73 sqM) 11/13/18 07:25 Glucose 113 mg/dL (74-99) H 11/13/18 07:25 POC Glucose (mg/dL) 133 mg/dL (75-99) H 11/13/18 06:07 POC Glu Room Worker Mita Samuel 11/13/18 06:07 Plasma Lactic Acid Ruel 1.2 mmol/L (0.7-2.0) 11/07/18 13:38 Calcium 7.9 mg/dL (8.4-10.2) L 11/13/18 07:25 Ionized Calcium Mario 5.0 mg/dL (4.5-5.3) 11/13/18 07:25 Phosphorus 3.9 mg/dL (2.5-4.5) 11/13/18 07:25 Magnesium 2.1 mg/dL (1.6-2.3) 11/13/18 07:25 Total Bilirubin 2.4 mg/dL (0.2-1.3) H 11/12/18 09:45 AST 35 U/L (17-59) 11/12/18 09:45 ALT 24 U/L (21-72) 11/12/18 09:45 Alkaline Phosphatase 208 U/L (38-126) H 11/12/18 09:45 Troponin I <0.012 ng/mL (0.000-0.034) 11/07/18 13:38 Total Protein 6.2 g/dL (6.3-8.2) L 11/12/18 09:45 Albumin 2.5 g/dL (3.5-5.0) L 11/12/18 09:45 Triglycerides 119 mg/dL (<150) 11/08/18 11:48 Carcinoembryonic Ag 11.7 ng/mL (0.0-4.9) H 11/11/18 08:37 Urine Color Yellow 11/12/18 20:55 Urine Appearance Cloudy (Clear) 11/12/18 20:55 Urine pH 6.0 (5.0-8.0) 11/12/18 20:55 Ur Specific [place] 1.019 (1.001-1.035) 11/12/18 20:55 Urine Protein 1+ (Negative) H 11/12/18 20:55 Urine Glucose (UA) Negative (Negative) 11/12/18 20:55 Urine Ketones Negative (Negative) 11/12/18 20:55 Urine Blood Moderate (Negative) H 11/12/18 20:55 Urine Nitrite Negative (Negative) 11/12/18 20:55 Urine Bilirubin 1+ (Negative) H 11/12/18 20:55 Urine Urobilinogen <2.0 mg/dL (<2.0) 11/12/18 20:55 Ur Leukocyte Esterase Large (Negative) H 11/12/18 20:55 Urine RBC 5 /hpf (0-5) 11/12/18 20:55 Urine WBC 42 /hpf (0-5) H 11/12/18 20:55 Urine WBC Clumps Few /hpf (None) H 11/11/18 22:23 Ur Squamous Epith Cells 1 /hpf (0-4) 11/11/18 22:23 Amorphous Sediment Occasional /hpf (None) H 11/08/18 09:00 Urine Bacteria Rare /hpf (None) H 11/12/18 20:55 Urine Mucus Rare /hpf (None) H 11/12/18 20:55 Influenza Type A RNA Not Detected (Not Detectd) 11/12/18 19:05 Influenza Type B (PCR) Not Detected (Not Detectd) 11/12/18 19:05 Blood Type O Positive 11/11/18 19:49 Blood Type Confirm O Positive 11/11/18 17:30 Blood Type Recheck CABO Indicated 11/11/18 19:49 Antibody Screen NEGATIVE 11/11/18 19:49 Crossmatch See Detail 11/11/18 19:49 Spec Expiration Date 11/14/2018234811/11/18 19:49 CBC & Chem 7: 11/12/18 09:45 11/13/18 07:25 Labs: Abnormal Lab Results - Last 24 Hours (Table) 11/12/18 11/12/18 11/12/18 Range/Units 09:45 09:45 12:03 RBC 3.09 L (4.30-5.90) m/uL Hgb 7.7 L (13.0-17.5) gm/dL Hct 25.8 L (39.0-53.0) % MCHC 29.9 L (31.0-37.0) g/dL RDW 17.7 H (11.5-15.5) % Neutrophils # 7.9 H (1.3-7.7) k/uL Lymphocytes # 0.8 L (1.0-4.8) k/uL Sodium 135 L (137-145) mmol/L Potassium 3.4 L (3.5-5.1) mmol/L Carbon Dioxide 21 L (22-30) mmol/L BUN 31 H (9-20) mg/dL Glucose 107 H (74-99) mg/dL POC Glucose (mg/dL) 134 H (75-99) mg/dL Calcium 7.8 L (8.4-10.2) mg/dL Total Bilirubin 2.4 H (0.2-1.3) mg/dL Alkaline Phosphatase 208 H (38-126) U/L Total Protein 6.2 L (6.3-8.2) g/dL Albumin 2.5 L (3.5-5.0) g/dL Urine Protein (Negative) Urine Blood (Negative) Urine Bilirubin (Negative) Ur Leukocyte Esterase (Negative) Urine WBC (0-5) /hpf Urine Bacteria (None) /hpf Urine Mucus (None) /hpf 11/12/18 11/12/18 11/12/18 Range/Units 18:02 20:55 23:31 RBC (4.30-5.90) m/uL Hgb (13.0-17.5) gm/dL Hct (39.0-53.0) % MCHC (31.0-37.0) g/dL RDW (11.5-15.5) % Neutrophils # (1.3-7.7) k/uL Lymphocytes # (1.0-4.8) k/uL Sodium (137-145) mmol/L Potassium (3.5-5.1) mmol/L Carbon Dioxide (22-30) mmol/L BUN (9-20) mg/dL Glucose (74-99) mg/dL POC Glucose (mg/dL) 166 H 131 H (75-99) mg/dL Calcium (8.4-10.2) mg/dL Total Bilirubin (0.2-1.3) mg/dL Alkaline Phosphatase (38-126) U/L Total Protein (6.3-8.2) g/dL Albumin (3.5-5.0) g/dL Urine Protein 1+ H (Negative) Urine Blood Moderate H (Negative) Urine Bilirubin 1+ H (Negative) Ur Leukocyte Esterase Large H (Negative) Urine WBC 42 H (0-5) /hpf Urine Bacteria Rare H (None) /hpf Urine Mucus Rare H (None) /hpf 11/13/18 11/13/18 Range/Units 06:07 07:25 RBC (4.30-5.90) m/uL Hgb (13.0-17.5) gm/dL Hct (39.0-53.0) % MCHC (31.0-37.0) g/dL RDW (11.5-15.5) % Neutrophils # (1.3-7.7) k/uL Lymphocytes # (1.0-4.8) k/uL Sodium 135 L (137-145) mmol/L Potassium (3.5-5.1) mmol/L Carbon Dioxide (22-30) mmol/L BUN 29 H (9-20) mg/dL Glucose 113 H (74-99) mg/dL POC Glucose (mg/dL) 133 H (75-99) mg/dL Calcium 7.9 L (8.4-10.2) mg/dL Total Bilirubin (0.2-1.3) mg/dL Alkaline Phosphatase (38-126) U/L Total Protein (6.3-8.2) g/dL Albumin (3.5-5.0) g/dL Urine Protein (Negative) Urine Blood (Negative) Urine Bilirubin (Negative) Ur Leukocyte Esterase (Negative) Urine WBC (0-5) /hpf Urine Bacteria (None) /hpf Urine Mucus (None) /hpf Microbiology - Last 24 Hours (Table) 11/11/18 23:37 Blood Culture - Preliminary Blood No Growth after 24 hours 11/11/18 22:45 Blood Culture - Preliminary Blood No Growth after 24 hours 11/07/18 13:38 Blood Culture - Preliminary Blood No Growth after 120 hours 11/11/18 22:23 Urine Culture - Preliminary Urine,Voided Assessment and Plan Plan: This is a 58-year-old male who presented to the hospital with abdominal pain, anorexia and vomiting diarrhea with increasing weakness with underlying stage III colon cancer. Patient developed a fever with concern for urinary tract infection with known right-sided chronic hydronephrosis and found to have a new left sided hydronephrosis. Urology will be consulted. Patient has been started on cefepime and vancomycin. Urine culture is positive for greater than 100,000 colonies of group D enterococcus and antibiotics will be changed to Unasyn. Blood cultures are showing no growth after 24 hours. Infl uenza testing has been negative. Continue supportive care. Further recommendations as patient progresses. The above dictated assessment and findings were discussed with Dr. Carter. The impression and plan of care have been directed as dictated. Brea Garcia nurse practitioner acting as scribe for Dr. Carter.
--- NOTE | 2018-11-13 10:59 | P.PN ---
Progress Note - Text Progress Note Date: 11/13/18 An ultrasound was ordered of the abdomen to rule out ascites. I did review the report. There is no significant ascites but he is developing a left hydroureter which is new. 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 I discussed the case with Dr. Hay and we will order a urology consult for stenting.
[2018-11-13] MEDS: MAG HYDROX/AL HYDROX/SIMETH 30 ML, LIDOCAINE VISCOUS 30 ML, diphenhydrAMINE ELIXIR 75 M... PO SCH ×12 (11:42→20:08)
[2018-11-13 11:45] LABS: Glucose,Whole Blood 108 mg/dL (75-99)
--- NOTE | 2018-11-13 13:38 | P.PN ---
Subjective Progress Note Date: 11/13/18 This is a 57-year-old male patient of Dr. Russ's with past medical history of stage III colon cancer, his been on chemotherapy he is also had metastasis to the spine. Patient is followed by Dr. Dang on a regular basis. Patient was recently discharged from 3 days ago from the hospital with abdominal pain and similar symptoms. Patient was sent home with homecare, he reports he had multiple episodes of vomiting and diarrhea and became increasingly weak. Chest x-ray showed atelectasis at the lateral left lung base that is cleared from previous exam, abdominal x-ray shows dilated bowel possible ileus that was unchanged from previous exam, and possible distal large bowel mechanical obstru ction. Labs show hemoglobin 9, WBC 14.5, sodium 134, BUN 60, creatinine 1.89. He is afebrile, heart rate running in the 90s, blood pressure 120/76, 94% on room air. Surgery and oncology have been consulted, will obtain blood cultures. Patient will be scheduled for barium enema tomorrow to rule out distal bowel obstruction from pelvic tumor mass, and she was placed without difficulty by Dr. Sebastian. 11/09: The patient has been afebrile, heart rate running in the 80s and 90s, blood pressure 117/78, pulse ox 90% on room air. Sodium 140, potassium 3.9, chloride 108, CO2 23, BUN 27, creatinine 0.93. Patient had NG tube placed but after 3 hours he pulled this out. He had episode of confusion and hallucination after receiving Ativan during the NG tube placement. Patient had a sitter at the bedside for brief period and this was discontinued. Abdomen is less distended today. He is on TPN. He's been seen by Dr. Sebastian and underwent a barium enema this morning which revealed bowel narrowing within the pelvis consistent with patient's history of distal bowel obstruction. Surgical plans t o be discussed with the patient and his . Discussed discharge planning and patient's is requesting placement at [facility] for subacute rehab at the time of discharge. Case management and rn social services following the patient. 11/10: Patient underwent sigmoidoscopy with biopsy today that found metastatic colon cancer, anastomotic narrowing with atypical mucosa. Dr. Sebastian has recommended continuing TPN and she feels he is a surgical candidate. Eliquis has been placed on hold. Dr. Sebastian will discuss with Dr. Tariq. Biopsy is pending. Patient has been afebrile, heart rate in the 70s, blood pressure 112/66, pulse ox 96% on room air. Sodium 141, chloride 110, potassium 4.4, CO2 24, BUN 23, creatinine 0.95. Blood sugars running between 109 and 133. Albumin 2.6. 11/11: senior facilities manager has discussed hospice option with the patient and he is currently waiting to discuss with his and does not want to make a decision. Dr. Sebastian has him scheduled for procedure this afternoon but patient is stating he is not going to undergo surgery. Patient is eating very little. He is still on TPN. Patient has been afebrile, heart rate running in the 70s to 100, blood pressure 103/70, pulse ox 100% on room air. Sodium 139, potassium 3.9, chloride 108, CO2 22, BUN 28 creatinine 0.95. Magnesium 1.5, total bilirubin 1.5, AST 37, ALT 24, alkaline phosphatase 255. 11/12: Patient is still waiting discussion regarding any surgical intervention with Dr. Sebastian. Patient is more lethargic today. He does open his eyes to verbal stimuli. Oral intake is poor. He is continued on TPN. He has been afebrile, heart rate in the 70s, blood pressure 95/57, pulse ox 99% on room air. White count is 9.5, hemoglobin 7.7, platelet count 212. Sodium 135, potassium 3.4, chloride 105, CO2 21, BUN 31 and creatinine 0.97. Blood sugars running between 99 and 147. Total bilirubin 2.4, AST 35, ALT 24, albumin 2.5, total protein 6.2. 11/13: Patient has been seen by Dr. Carter regarding fever up to 102. White count remains normal, hemoglobin 7.7, creatinine 1.01. Chest x-ray showed no acute cardiopulmonary process. Abdominal x-ray shows distended and dilated bowels with gas consistent with ileus or partial mechanical obstruction. No change compared to last exam. Ultrasound of the abdomen and pelvis reveals suboptimal study. No ascites evident. Severe right-sided hydronephrosis redemonstrated. New [id number] left-sided hydronephrosis suspected. Yesterday, patient was started on cefepime and vancomycin by oncology. Patient denies having any fever or chills today. He continues to have poor oral intake and is on TPN. He is not interested in taking any protein supplements including Ensure, [place] instant breakfast or Magic cups. Dietitian is attempting to supply a protein rich diet for him with limitations. Patient is only getting up to the bathroom rarely. He is mostly staying in bed. He complains of significant weakness. He denies having any pain with urination or increased frequency. He has Joyner catheter placed for retention. He has generalized abdominal pain which is been chronic. He denies suprapubic pain and flank pain. He states he is tolerating a diet and plan with Dr. Sebastian is to monitor tolerance of his diet over the weekend. Patient has verbalized to staff yesterday and the day before that he does not want to undergo surgery. Hospice has been addressed with the patient from oncology on this admission and previous admission and patient is declining. Revisited today and patient also states he is not ready for hospice and did not want hospice informational meeting. Clarified CODE STATUS which is no code. Urology consult has been added by Dr. Carter regarding a new left-sided hydronephrosis. Antibiotics changed to Unasyn. Patient ambulated in hallway today. Review of Systems Constitutional: Reports fatigue, Reports weakness, reports malaise, Denies chills, Denies fever Ears, nose, mouth and throat: Denies dysphagia, Denies headache, Denies hoarseness, Denies mouth pain, Denies nasal congestion, Denies nasal discharge, Denies post-nasal drip, Denies sore throat Cardiovascular: Denies chest pain, Denies edema, Denies high blood pressure, Denies leg edema, Denies orthopnea, Denies palpitations, Denies shortness of breath, Denies syncope Respiratory: Denies congestion, Denies cough, Denies dyspnea, Denies pain Gastrointestinal: Reports abdominal pain, reports less abdominal distention, Reports diarrhea, Reports loss of appetite, Reports nausea, Reports vomiting, reports bloating, Denies constipation, Denies dyspepsia, Denies hematemesis, reports anorexia. Genitourinary: Denies dysuria, Denies flank pain, Denies hematuria, Denies nocturia, Denies urinary frequency, Denies urinary retention Musculoskeletal: Reports muscle weakness, Denies atrophy, Denies frequent falls, Denies gait dysfunction, Denies leg numbness/tingling, Denies limitation of motion, Denies neck pain, Denies neck stiffness Neurological: Reports weakness, reports confusion, Denies gait dysfunction, Denies headaches, Denies memory loss, Denies numbness, Denies paralysis, Denies seizures, Denies syncope Hematologic/Lymphatic: Denies lymphadenopathy Objective - Vital Signs Vital signs: Vital Signs Temp 97.6 F 11/13/18 07:30 Pulse 69 11/13/18 07:30 Resp 14 11/13/18 07:30 BP 98/65 11/13/18 07:30 Pulse Ox 100 11/13/18 07:30 Intake & Output 11/12/18 11/13/18 11/13/18 18:59 06:59 18:59 Intake Total 310 1320 Output Total 2700 550 Balance -2390 770 Weight 75.4 kg 75.4 kg Intake: Intake, IV Titration 1000 Amount Cefepime 2 gm In Sodium 100 Chloride 0.9% 100 ml @ 200 mls/hr IVPB Q8HR MOON Rx#:[id number] Sodium Acetate 20 meq 900 Potassium Phosphate 10 mmol Mvi, Adult No.4 with Vit K 10 ml Trace (Conc- 1Ml/Dose) 1 ml Magnesium Sulfate gm 1 gm Calcium Gluconate 0.5 gm In Amino Acid 5%-D15w 1,000 ml @ 100 mls/hr IV .BY DURATION MOON Rx#: [id number] Oral 320 Blood Product 310 Rc As-1 Unit 310 [id number] Output: Urine 2700 550 Uretheral (Joyner) 1300 550 Other: Voiding Method Diaper Indwelling Catheter Incontinent # Voids 2 # Bowel Movements 1 2 - Exam Gen: This is a thin 58-year-old male. He is resting in bed and appears to be comfortable and in no acute distress. HEENT: Head is atraumatic, normocephalic. Pupils equal, round. Sclerae is anicteric. Oral mucous membranes are moist. Lesions noted on the soft palate and tongue. NECK: Supple. No JVD. No lymphadenopathy. No thyromegaly. LUNGS: Clear to auscultation. No wheezes or rhonchi. No intercostal retractions. HEART: Regular rate and rhythm. No murmur. ABDOMEN: Slightly distended. Soft. Bowel sounds are present. No masses. No tenderness. Joyner with dark orange urine EXTREMITIES: No pedal edema. No calf tenderness. Dorsalis pedis +1 bilaterally. NEUROLOGICAL: Patient is awake, alert and oriented x3. Cranial nerves 2 through 12 are grossly intact. - Labs CBC & Chem 7: 11/12/18 09:45 11/13/18 07:25 Labs: Abnormal Lab Results - Last 24 Hours (Table) 11/12/18 11/12/18 11/12/18 Range/Units 18:02 20:55 23:31 Sodium (137-145) mmol/L BUN (9-20) mg/dL Glucose (74-99) mg/dL POC Glucose (mg/dL) 166 H 131 H (75-99) mg/dL Calcium (8.4-10.2) mg/dL Urine Protein 1+ H (Negative) Urine Blood Moderate H (Negative) Urine Bilirubin 1+ H (Negative) Ur Leukocyte Esterase Large H (Negative) Urine WBC 42 H (0-5) /hpf Urine Bacteria Rare H (None) /hpf Urine Mucus Rare H (None) /hpf 11/13/18 11/13/18 11/13/18 Range/Units 06:07 07:25 11:44 Sodium 135 L (137-145) mmol/L BUN 29 H (9-20) mg/dL Glucose 113 H (74-99) mg/dL POC Glucose (mg/dL) 133 H 108 H (75-99) mg/dL Calcium 7.9 L (8.4-10.2) mg/dL Urine Protein (Negative) Urine Blood (Negative) Urine Bilirubin (Negative) Ur Leukocyte Esterase (Negative) Urine WBC (0-5) /hpf Urine Bacteria (None) /hpf Urine Mucus (None) /hpf Microbiology - Last 24 Hours (Table) 11/11/18 22:23 Urine Culture - Preliminary Urine,Voided Group D Enterococcus 11/11/18 23:37 Blood Culture - Preliminary Blood No Growth after 24 hours 11/11/18 22:45 Blood Culture - Preliminary Blood No Growth after 24 hours 11/07/18 13:38 Blood Culture - Preliminary Blood No Growth after 120 hours Assessment and Plan Plan: 1. Acute abdominal pain: X-ray shows ileus with bowel narrowing. Consult with Dr. Sebastian appreciated. NG tube has been removed by the patient. Status post barium enema and sigmoidoscopy with biopsy. Continue on Zofran, Protonix and Compazine. Patient and family do not want surgical intervention. Awaiting determination regarding surgery. Eliquis is on hold. 2. Acute kidney injury: Secondary to dehydration, continue with IV fluids. 3. Severe dehydration: IV hydration 4. Colon cancer with metastasis: Has been on chemotherapy and sees oncology on regular basis, oncology on consult 5. History of DVT: Continue eliquis 2.5 mg twice a day. Patient has completed his course of therapy for DVT but patient's primary oncologist has recommended continuing eliquis due to cancer diagnosis. 6. Anemia: Secondary to chemotherapy and cancer, will monitor CBC. 7. Severe protein calorie malnutrition. Continue TPN. Dietitian is following. Plan is to try and increase oral intake and monitor. 8. Fever, probable urinary tract infection with urinary retention and bilateral hydronephrosis. Consult with Dr. Carter appreciated. Urine culture Group D enterococcus. Blood culture in progress. Antibiotics changed to Unasyn 9. Urinary retention requiring Joyner catheter placement. Flomax 0.4 mg daily added 8. GI prophylaxis. Protonix 40 mg daily 9. DVT prophylaxis. Eliquis is on hold by Dr. Sebastian for possible surgical intervention. Heparin subcu every 12 hours. CODE STATUS: Full code Discharge plan: Either home with [facility] or [facility] for subacute rehab. Patient declined hospice. Impression and plan of care have been directed as dictated by the signing physician. Brea Garcia nurse practitioner acting as scribe for signing physician.
[2018-11-13] MEDS: TAMSULOSIN 0.4 MG CAP.ER.24H PO SCH (13:44)
--- NOTE | 2018-11-13 14:07 | P.PN ---
Subjective Progress Note Date: 11/13/18 The patient is starting to feel better. He was up and ambulated in the [facility] today. This was the first time since admission. He is eating a regular diet. Oral intake is improved. He says his abdomen "grumbles "when he eats but that it comes down shortly afterwards. No vomiting. He is passing some flatus and having liquid bowel movements. He had fevers overnight which finally have resolved Objective - Vital Signs Vital signs: Vital Signs Temp 98.5 F 11/13/18 11:00 Pulse 103 H 11/13/18 11:00 Resp 16 11/13/18 11:00 BP 108/74 11/13/18 11:00 Pulse Ox 100 11/13/18 11:00 Intake & Output 11/12/18 11/13/18 11/13/18 18:59 06:59 18:59 Intake Total 310 2340.3333 1031.3333 Output Total 2700 550 Balance -2390 1790.3333 1031.3333 Weight 75.4 kg 75.4 kg Intake: Intake, IV Titration 2020.3333 1031.3333 Amount Cefepime 2 gm In Sodium 100 Chloride 0.9% 100 ml @ 200 mls/hr IVPB Q8HR MOON Rx#:[id number] Sodium Acetate 20 meq 1020.3333 Potassium Phosphate 10 mmol Magnesium Sulfate gm 1 gm Calcium Gluconate 0 .5 gm In Amino Acid 5%- D15w 1,000 ml @ 100 mls/ hr IV .BY DURATION MOON Rx #:[id number] Sodium Acetate 20 meq 900 1031.3333 Potassium Phosphate 10 mmol Mvi, Adult No.4 with Vit K 10 ml Trace (Conc- 1Ml/Dose) 1 ml Magnesium Sulfate gm 1 gm Calcium Gluconate 0.5 gm In Amino Acid 5%-D15w 1,000 ml @ 100 mls/hr IV .BY DURATION MOON Rx#: [id number] Oral 320 Blood Product 310 Rc As-1 Unit 310 [id number] Output: Urine 2700 550 Uretheral (Joyner) 1300 550 Other: Voiding Method Diaper Indwelling Catheter Incontinent # Voids 2 # Bowel Movements 1 2 - Constitutional General appearance: Present: cooperative, no acute distress - Gastrointestinal General gastrointestinal: Present: distended (Softly distended), normal bowel sounds. Absent: tenderness - Labs CBC & Chem 7: 11/12/18 09:45 11/13/18 07:25 Labs: Abnormal Lab Results - Last 24 Hours (Table) 11/12/18 11/12/18 11/12/18 Range/Units 18:02 20:55 23:31 Sodium (137-145) mmol/L BUN (9-20) mg/dL Glucose (74-99) mg/dL POC Glucose (mg/dL) 166 H 131 H (75-99) mg/dL Calcium (8.4-10.2) mg/dL Urine Protein 1+ H (Negative) Urine Blood Moderate H (Negative) Urine Bilirubin 1+ H (Negative) Ur Leukocyte Esterase Large H (Negative) Urine WBC 42 H (0-5) /hpf Urine Bacteria Rare H (None) /hpf Urine Mucus Rare H (None) /hpf 11/13/18 11/13/18 11/13/18 Range/Units 06:07 07:25 11:44 Sodium 135 L (137-145) mmol/L BUN 29 H (9-20) mg/dL Glucose 113 H (74-99) mg/dL POC Glucose (mg/dL) 133 H 108 H (75-99) mg/dL Calcium 7.9 L (8.4-10.2) mg/dL Urine Protein (Negative) Urine Blood (Negative) Urine Bilirubin (Negative) Ur Leukocyte Esterase (Negative) Urine WBC (0-5) /hpf Urine Bacteria (None) /hpf Urine Mucus (None) /hpf Microbiology - Last 24 Hours (Table) 11/11/18 22:23 Urine Culture - Preliminary Urine,Voided Group D Enterococcus 11/11/18 23:37 Blood Culture - Preliminary Blood No Growth after 24 hours 11/11/18 22:45 Blood Culture - Preliminary Blood No Growth after 24 hours 11/07/18 13:38 Blood Culture - Preliminary Blood No Growth after 120 hours Assessment and Plan (1) Primary colon cancer without distant metastasis (M0) Current Visit: Yes Status: Acute Code(s): C18.9 - MALIGNANT NEOPLASM OF COLON, UNSPECIFIED SNOMED Code(s): 60644010 (2) Anastomotic stricture of colorectal region Current Visit: Yes Status: Acute Code(s): K91.30 - POSTPROC INTESTINAL OBST, UNSP TO PARTIAL VERSUS COMPLETE SNOMED Code(s): 712424082 (3) Fever Current Visit: Yes Status: Acute Code(s): R50.9 - FEVER, UNSPECIFIED SNOMED Code(s): 160565060 (4) UTI (urinary tract infection) Current Visit: No Status: Acute Code(s): N39.0 - URINARY TRACT INFECTION, SITE NOT SPECIFIED SNOMED Code(s): 33188798 Plan: The patient's antibiotics have been adjusted by infectious disease. He does have a group D enterococcus urinary tract infection. Tolerating a diet with fair intake. The left hydroureter is new. Likely from progression of the airam or. Urology will be consulted. Currently he is tolerating a diet. I feel that the partial obstruction at the ileocolic anastomosis will continue to progress unless he has a very good response to chemotherapy. Chances are fairly high he will need a diversion procedure in the future. Currently surgically stable
--- NOTE | 2018-11-13 14:51 | P.CON ---
Consult Note - . 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 December 2015 he was positive for DVT and he was started on eliquis. He underwent CT scan of abdomen/pelvis on 02/22/2016 which revealed 9.4x5.5cm mass in righ pelvis causing significant hydronephrosis. Cystoscopy and ureteral stent placement was attempted but stent could not be placed. On 02/27/2016, FNA of the pelvic mass was positive for adenocarcinoma consistent with colon primary. PET scan revealed very large right pelvic mass invading the sacrum with multiple lung lesions and hilar nodes. He had right nephrostomy tube placed at and he was also evaluated by oncology at on 03/14/2016 and recommended systemic therapy first. He completed 10 cycles of mFOLFOX. Repeat PET scan on 09/08/2016 revealed disease progression in his pelvis and he completed 11 cycles of FOLFIRI/Avastin on 02/26/2017 (he declined the last cycle). He started maintenance xeloda/avastin he ended up with bleeding in his kidney and retroperitoneal hemorrhage and treated at [facility]. Repeat PET scan in 2016 revealed progression of his disease in the pelvis with chronic right hydronephrosis. He has been intermittently on Xeloda/Avastin. In August of this year, he started Avastin/FOLFIRI. He had a recent hospitalization for October 22 through November 03 for abdominal pain and diarrhea secondary to chemotherapy or enteritis and acute kidney injury with dehydration with complaints of generalized abdominal pain, lack of appetite and inability to keep food down. He was treated with TPN and started on Remeron and eventually discharged home. At home, he did not have a bowel movement for 2 days he was feeling increasing weakness and came back to the emergency center for evaluation. Abdominal x-ray showed dilated bowel possible ileus that was unchanged from previous exam with possible distal large bowel mechanical obstruction. Chest x-ray showed atelectasis in the lateral left lung base that is cleared from previous exam. He underwent a barium enema that showed bowel narrowing within the pelvis consistent with patient's history of distal bowel obstruction. Cystoscopy was done which showed metastatic colon cancer, anastomotic narrowing with atypical mucosa. Pathology was consistent with benign enteric mucosa consistent with coloenteric anastomosis. Patient was found to have temperature of 102.7 on November 11 on one reading and 101.6 on November 13. He underwent a chest x-ray that revealed no active cardiopulmonary disease. Abdominal x-ray shows distended and dilated bowels with gas consistent with ileus or partial mechanical obstruction. No change compared to last exam. Ultrasound of the abdomen and pelvis reveals suboptimal study. No ascites evident. Severe right-sided hydronephrosis redemonstrated. New [id number] left-sided hydronephrosis suspected. Influenza testing negative. Yesterday, patient was started on cefepime and vancomycin. Patient denies having any fever or chills today. He apparently is eating very little. He is not interested in taking any protein supplements including Ensure, [place] instant breakfast or Magic cups. Dietitian is attempting to supply a protein rich diet for him with limitations. Patient is only getting up to the bathroom rarely. He is mostly staying in bed. He complains of significant weakness. He denies having any pain with urination or increased frequency. He had Joyner catheter placed for retention. He has generalized abdominal pain which is been chronic. He denies suprapubic pain and flank pain. He states he is tolerating a diet and plan with Dr. Sebastian is to monitor tolerance of his diet over the weekend. Patient has verbalized to staff yesterday and the day before that he does not want to undergo surgery. Hospice has been addressed with the patient from oncology on this admission and previous admission and patient is declining. Revisited today and patient also states he is not ready for hospice and did not want hospice informational meeting. Please see the consult note as dictated by BAKING ASSISTANT Mrs Brea Garcia. 58-year-old male who has the known history of adenocarcinoma of the sigmoid colon was been in hospital for several days and very poorly overall. He is now developed fevers up to 101.6 and felt quite poorly overall. He is receiving TPN with his obstructive problem. He also has a known history of the chronic right hydronephrosis that could not be stented per urology. No evidence concerns to new obstructions in the left ureter. The patient is noted feels very poorly overall this pain is better than it was when he first presented hospital. Urine cultures become available and Enterococcus faecalis as well as icing and consequently antibiotic therapy is now transitioned to ampicillin sulbactam 3 g IV piggyback every 6 hours for a pathogen which also give us coverage for any intra-abdominal pathology. Urological evaluation has been requested. I agree with evaluation assessment and plan as dictated by BAKING ASSISTANT Mrs Brea Garcia.
--- NOTE | 2018-11-13 15:29 | P.PN ---
Subjective Progress Note Date: 11/13/18 Principal diagnosis: Progressive Cancer Urine Culture resulted and Dr. Carter aware and has made the appropriate changes to coverage. The Ultrasound of abdomen was also noted to have new left hydroureter which is new. Urology consulted for possible stent for nonfunctioning right kidney due to total obstruction. I have discussed the case with Dr. Carter. Objective - Vital Signs Vital signs: Vital Signs Temp 98.5 F 11/13/18 11:00 Pulse 103 H 11/13/18 11:00 Resp 16 11/13/18 11:00 BP 108/74 11/13/18 11:00 Pulse Ox 100 11/13/18 11:00 Intake & Output 11/12/18 11/13/18 11/13/18 18:59 06:59 18:59 Intake Total 310 2340.3333 1031.3333 Output Total 2700 550 Balance -2390 1790.3333 1031.3333 Weight 75.4 kg 75.4 kg Intake: Intake, IV Titration 2020.3333 1031.3333 Amount Cefepime 2 gm In Sodium 100 Chloride 0.9% 100 ml @ 200 mls/hr IVPB Q8HR MOON Rx#:[id number] Sodium Acetate 20 meq 1020.3333 Potassium Phosphate 10 mmol Magnesium Sulfate gm 1 gm Calcium Gluconate 0 .5 gm In Amino Acid 5%- D15w 1,000 ml @ 100 mls/ hr IV .BY DURATION MOON Rx #:[id number] Sodium Acetate 20 meq 900 1031.3333 Potassium Phosphate 10 mmol Mvi, Adult No.4 with Vit K 10 ml Trace (Conc- 1Ml/Dose) 1 ml Magnesium Sulfate gm 1 gm Calcium Gluconate 0.5 gm In Amino Acid 5%-D15w 1,000 ml @ 100 mls/hr IV .BY DURATION MOON Rx#: [id number] Oral 320 Blood Product 310 Rc As-1 Unit 310 [id number] Output: Urine 2700 550 Uretheral (Joyner) 1300 550 Other: Voiding Method Diaper Indwelling Catheter Incontinent # Voids 2 # Bowel Movements 1 2 - Exam Gen: ALert, NAD Head: NCNT Neck Supple No palpable adenopathy on exam Lungs: Diminished bibasilar, mild increased effort Abdomen: Firm, Tender Heart: Tachy Appears chronically ill LE Edema generalized bilateral - Labs CBC & Chem 7: 11/12/18 09:45 11/13/18 07:25 Labs: Abnormal Lab Results - Last 24 Hours (Table) 11/12/18 11/12/18 11/12/18 Range/Units 18:02 20:55 23:31 Sodium (137-145) mmol/L BUN (9-20) mg/dL Glucose (74-99) mg/dL POC Glucose (mg/dL) 166 H 131 H (75-99) mg/dL Calcium (8.4-10.2) mg/dL Urine Protein 1+ H (Negative) Urine Blood Moderate H (Negative) Urine Bilirubin 1+ H (Negative) Ur Leukocyte Esterase Large H (Negative) Urine WBC 42 H (0-5) /hpf Urine Bacteria Rare H (None) /hpf Urine Mucus Rare H (None) /hpf 11/13/18 11/13/18 11/13/18 Range/Units 06:07 07:25 11:44 Sodium 135 L (137-145) mmol/L BUN 29 H (9-20) mg/dL Glucose 113 H (74-99) mg/dL POC Glucose (mg/dL) 133 H 108 H (75-99) mg/dL Calcium 7.9 L (8.4-10.2) mg/dL Urine Protein (Negative) Urine Blood (Negative) Urine Bilirubin (Negative) Ur Leukocyte Esterase (Negative) Urine WBC (0-5) /hpf Urine Bacteria (None) /hpf Urine Mucus (None) /hpf Microbiology - Last 24 Hours (Table) 11/11/18 22:23 Urine Culture - Preliminary Urine,Voided Group D Enterococcus 11/11/18 23:37 Blood Culture - Preliminary Blood No Growth after 24 hours 11/11/18 22:45 Blood Culture - Preliminary Blood No Growth after 24 hours 11/07/18 13:38 Blood Culture - Preliminary Blood No Growth after 120 hours Assessment and Plan Plan: Assessment and Recommendations: 1. Metastatic Colon Cancer - Status POst multiple lines of failed treatments - Most recently Avastin and FOLFIRI 2. Persistent worsening Obstruction - Oran to be secondary to progressive malignancy 3. Persistent Nausea and vomiting: - Improved - Diet increased and improving 4. Normocytic Hypochromic Anemia: Secondary to chemotherapy and malignancy and nutritional deficits - Check CBC today and daily - Transfuse hemoglobin less than 7 - Status Post Transfusion 11/11/18 5. Febrile overnight - T Max today 101.7 - Re-davis culture - Fevers - Urine Culture resulted and infectious disease changed to appropriate antibiotic coverage 6. Abdomen increased distention: - Abdominal and chest xray - Ultrasound of abdomen. 7. New Right Hydronephrosis: - Urology Consultation placed and patient always with many questions and greater than 30 minutes spent with patient and family, greater than 50% of this counseling and coordinating care.
[2018-11-13 15:51] LABS: Anisocytosis Slight; Basophils % (A) 0 %; Eosinophils # (A) 0.1 k/uL (0-0.7); Eosinophils % (A) 1 %; HCT 28.1 % (39.0-53.0); HGB 8.4 gm/dL (13.0-17.5); Hypochromasia Marked; Lymphocytes # (A) 0.6 k/uL (1.0-4.8); Lymphocytes % (A) 8 %; MCHC 29.8 g/dL (31.0-37.0); MCV 83.9 fL (80.0-100.0); Mean Platelet Volume 7.5; Monocytes # (A) 0.6 k/uL (0-1.0); Monocytes % (A) 8 %; Neutrophils # (A) 6.2 k/uL (1.3-7.7); Neutrophils % (A) 81 %; Platelet Count 256 k/uL (150-450); Poikilocytosis Slight; RBC 3.35 m/uL (4.30-5.90); RDW 17.7 % (11.5-15.5); WBC 7.7 k/uL (3.8-10.6)
[2018-11-13] MEDS: AMPICILLIN-SULBACTAM 3 GM in SODIUM CHLORIDE 0.9% 100 ML IVPB SCH ×3 (16:00→23:19)
[2018-11-13] MEDS: MIRTAZAPINE 15 MG TAB PO SCH (17:58)
[2018-11-13 18:23] LABS: Glucose,Whole Blood 139 mg/dL (75-99)
[2018-11-13] MEDS: HEPARIN SODIUM,PORCINE 5,000 UNIT/ML 1 ML VIAL SQ SCH (20:04)
[2018-11-14 00:01] LABS: Glucose,Whole Blood 124 mg/dL (75-99)
[2018-11-14] MEDS: INSULIN ASPART (NovoLOG) 100 UNIT/ML VIAL SQ SCH ×4 (00:02→17:28)
[2018-11-14] MEDS: LACTATED RINGERS 1,000 ML IV SCH (00:02)
[2018-11-14] MEDS: oxyCODONE-APAP 10-325MG 1 EACH TAB PO PRN ×5 (04:10→21:21)
[2018-11-14] MEDS: PROCHLORPERAZINE 10 MG TAB PO SCH ×4 (04:17→20:36)
[2018-11-14] MEDS: AMPICILLIN-SULBACTAM 3 GM in SODIUM CHLORIDE 0.9% 100 ML IVPB SCH ×4 (05:13→23:51)
[2018-11-14 06:24] LABS: Glucose,Whole Blood 117 mg/dL (75-99)
[2018-11-14 07:29] LABS: Anisocytosis Slight; Basophils % (A) 1 %; Eosinophils # (A) 0.2 k/uL (0-0.7); Eosinophils % (A) 2 %; HCT 26.2 % (39.0-53.0); HGB 7.8 gm/dL (13.0-17.5); Hypochromasia Marked; Lymphocytes # (A) 1.2 k/uL (1.0-4.8); Lymphocytes % (A) 15 %; MCH 24.5 pg (25.0-35.0); MCHC 29.8 g/dL (31.0-37.0); MCV 82.1 fL (80.0-100.0); Mean Platelet Volume 7.9; Monocytes # (A) 0.8 k/uL (0-1.0); Monocytes % (A) 11 %; Neutrophils # (A) 5.2 k/uL (1.3-7.7); Neutrophils % (A) 68 %; Platelet Count 269 k/uL (150-450); Poikilocytosis Slight; RBC 3.19 m/uL (4.30-5.90); RDW 17.7 % (11.5-15.5); WBC 7.6 k/uL (3.8-10.6)
[2018-11-14 07:51] LABS: ALT 74 U/L (21-72); AST 165 U/L (17-59); Albumin 2.8 g/dL (3.5-5.0); Alkaline Phosphatase 477 U/L (38-126); Anion Gap 13 mmol/L; Blood Urea Nitrogen 30 mg/dL (9-20); Calcium 8.2 mg/dL (8.4-10.2); Carbon Dioxide 20 mmol/L (22-30); Chloride 104 mmol/L (98-107); Glucose 85 mg/dL (74-99); Phosphorus 3.3 mg/dL (2.5-4.5); Potassium 3.7 mmol/L (3.5-5.1); Sodium 137 mmol/L (137-145); Total Bilirubin 1.7 mg/dL (0.2-1.3); Total Protein 7.1 g/dL (6.3-8.2)
[2018-11-14] MEDS: GABAPENTIN 100 MG CAP PO SCH ×2 (09:04→20:36)
[2018-11-14] MEDS: FAT EMULSION 20% 250 ML IV SCH (09:05)
[2018-11-14] MEDS: HEPARIN SODIUM,PORCINE 5,000 UNIT/ML 1 ML VIAL SQ SCH ×2 (09:05→20:36)
[2018-11-14] MEDS: TAMSULOSIN 0.4 MG CAP.ER.24H PO SCH (09:05)
[2018-11-14] MEDS: MAG HYDROX/AL HYDROX/SIMETH 30 ML, LIDOCAINE VISCOUS 30 ML, diphenhydrAMINE ELIXIR 75 M... PO SCH ×12 (09:10→20:36)
[2018-11-14] MEDS: [UNRECOGNIZED DRUG - REMARK] IV SCH ×15 (09:27→19:52)
[2018-11-14] MEDS ORDERED: POTASSIUM CHLORIDE 20 MEQ in WATER FOR INJECTION 1 100ML.BAG IVPB ONE (10:00)
--- NOTE | 2018-11-14 10:34 | P.PN ---
Subjective Progress Note Date: 11/14/18 This is a 57-year-old male patient of Dr. Russ's with past medical history of stage III colon cancer, his been on chemotherapy he is also had metastasis to the spine. Patient is followed by Dr. Dang on a regular basis. Patient was recently discharged from 3 days ago from the hospital with abdominal pain and similar symptoms. Patient was sent home with homecare, he reports he had multiple episodes of vomiting and diarrhea and became increasingly weak. Chest x-ray showed atelectasis at the lateral left lung base that is cleared from previous exam, abdominal x-ray shows dilated bowel possible ileus that was unchanged from previous exam, and possible distal large bowel mechanical obstruc tion. Labs show hemoglobin 9, WBC 14.5, sodium 134, BUN 60, creatinine 1.89. He is afebrile, heart rate running in the 90s, blood pressure 120/76, 94% on room air. Surgery and oncology have been consulted, will obtain blood cultures. Patient will be scheduled for barium enema tomorrow to rule out distal bowel obstruction from pelvic tumor mass, and she was placed without difficulty by Dr. Sebastian. 11/09: The patient has been afebrile, heart rate running in the 80s and 90s, blood pressure 117/78, pulse ox 90% on room air. Sodium 140, potassium 3.9, chloride 108, CO2 23, BUN 27, creatinine 0.93. Patient had NG tube placed but after 3 hours he pulled this out. He had episode of confusion and hallucination after receiving Ativan during the NG tube placement. Patient had a sitter at the bedside for brief period and this was discontinued. Abdomen is less distended today. He is on TPN. He's been seen by Dr. Sebastian and underwent a barium enema this morning which revealed bowel narrowing within the pelvis consistent with patient's history of distal bowel obstruction. Surgical plans to be discussed with the patient and his . Discussed discharge planning and patient's is requesting placement at [facility] for subacute rehab at the time of discharge. Case management and health and social care teacher following the patient. 11/10: Patient underwent sigmoidoscopy with biopsy today that found metastatic colon cancer, anastomotic narrowing with atypical mucosa. Dr. Sebastian has recommended continuing TPN and she feels he is a surgical candidate. Eliyesi has been placed on hold. Dr. Sebastian will discuss with Dr. Tariq. Biopsy is pending. Patient has been afebrile, heart rate in the 70s, blood pressure 112/66, pulse ox 96% on room air. Sodium 141, chloride 110, potassium 4.4, CO2 24, BUN 23, creatinine 0.95. Blood sugars running between 109 and 133. Albumin 2.6. 11/11: department operations manager has discussed hospice option with the patient and he is currently waiting to discuss with his and does not want to make a decision. Dr. Sebastian has him scheduled for procedure this afternoon but patient is stating he is not going to undergo surgery. Patient is eating very little. He is still on TPN. Patient has been afebrile, heart rate running in the 70s to 100, blood pressure 103/70, pulse ox 100% on room air. Sodium 139, potassium 3.9, chloride 108, CO2 22, BUN 28 creatinine 0.95. Magnesium 1.5, total bilirubin 1.5, AST 37, ALT 24, alkaline phosphatase 255. 11/12: Patient is still waiting discussion regarding any surgical intervention with Dr. Sebastian. Patient is more lethargic today. He does open his eyes to verbal stimuli. Oral intake is poor. He is continued on TPN. He has been afebrile, heart rate in the 70s, blood pressure 95/57, pulse ox 99% on room air. White count is 9.5, hemoglobin 7.7, platelet count 212. Sodium 135, potassium 3.4, chloride 105, CO2 21, BUN 31 and creatinine 0.97. Blood sugars running between 99 and 147. Total bilirubin 2.4, AST 35, ALT 24, albumin 2.5, total protein 6.2. 11/13: Patient has been seen by Dr. Carter regarding fever up to 102. White count remains normal, hemoglobin 7.7, creatinine 1.01. Chest x-ray showed no acute cardiopulmonary process. Abdominal x-ray shows distended and dilated bowels with gas consistent with ileus or partial mechanical obstruction. No change compared to last exam. Ultrasound of the abdomen and pelvis reveals suboptimal study. No ascites evident. Severe right-sided hydronephrosis redemonstrated. New [id number] left-sided hydronephrosis suspected. Yesterday, patient was started on cefepime and vancomycin by oncology. Patient denies having any fever or chills today. He continues to have poor oral intake and is on TPN. He is not interested in taking any protein supplements including Ensure, [place] instant breakfast or Magic cups. Dietitian is attempting to supply a protein rich diet for him with limitations. Patient is only getting up to the bathroom rarely. He is mostly staying in bed. He complains of significant weakness. He denies having any pain with urination or increased frequency. He has Joyner catheter placed for retention. He has generalized abdominal pain which is been chronic. He denies suprapubic pain and flank pain. He states he is tolerating a diet and plan with Dr. Sebastian is to monitor tolerance of his diet over the weekend. Patient has verbalized to staff yesterday and the day before that he does not want to undergo surgery. Hospice has been addressed with the patient from oncology on this admission and previous admission and patient is declining. Revisited today and patient also states he is not ready for hospice and did not want hospice informational meeting. Clarified CODE STATUS which is no code. Urology consult has been added by Dr. Carter regarding a new left-sided hydronephrosis. Antibiotics changed to Unasyn. Patient ambulated in hallway today. 11/14: Patient was resting comfortably up in a chair. He is waiting for his to come with breakfast. Patient denies any abdominal discomfort nausea or vomiting. Patient is having bowel movements that are not diarrhea or bloody. He is tolerating his anticoagulant without any difficulties. Patient spoke with Dr. Tariq yesterday evening and has decided not to move forward with the CAT scan, surgery, or stent placement to bilateral kidneys. At this time he will continue to monitor his symptoms and see if he can tolerate food. Review of Systems Constitutional: Reports fatigue, Reports weakness, reports malaise, Denies chills, Denies fever Ears, nose, mouth and throat: Denies dysphagia, Denies headache, Denies hoarseness, Denies mouth pain, Denies nasal congestion, Denies nasal discharge, Denies post-nasal drip, Denies sore throat Cardiovascular: Denies chest pain, Denies edema, Denies high blood pressure, Denies leg edema, Denies orthopnea, Denies palpitations, Denies shortness of breath, Denies syncope Respiratory: Denies congestion, Denies cough, Denies dyspnea, Denies pain Gastrointestinal: Reports abdominal pain, reports less abdominal distention, denies diarrhea, denies loss of appetite, denies nausea, denies vomiting, reports bloating, Denies constipation, Denies dyspepsia, Denies hematemesis, reports anorexia. Genitourinary: Denies dysuria, Denies flank pain, Denies hematuria, Denies nocturia, Denies urinary frequency, Denies urinary retention Musculoskeletal: Reports muscle weakness, Denies atrophy, Denies frequent falls, Denies gait dysfunction, Denies leg numbness/tingling, Denies limitation of motion, Denies neck pain, Denies neck stiffness Neurological: Reports weakness, reports confusion, Denies gait dysfunction, Denies headaches, Denies memory loss, Denies numbness, Denies paralysis, Denies seizures, Denies syncope Hematologic/Lymphatic: Denies lymphadenopathy Objective - Vital Signs Vital signs: Vital Signs Temp 98.4 F 11/14/18 05:00 Pulse 64 11/14/18 05:00 Resp 16 11/14/18 05:00 BP 100/63 11/14/18 05:00 Pulse Ox 97 11/14/18 05:00 Intake & Output 11/13/18 11/14/18 11/14/18 18:59 06:59 18:59 Intake Total 1031.3333 1020.3333 Output Total 1350 1500 Balance -318.6667 -479.6667 Weight 75.4 kg 75.2 kg Intake: Intake, IV Titration 1031.3333 1020.3333 Amount Sodium Acetate 20 meq 1020.3333 Potassium Phosphate 10 mmol Magnesium Sulfate gm 1 gm Calcium Gluconate 0 .5 gm In Amino Acid 5%- D15w 1,000 ml @ 100 mls/ hr IV .BY DURATION MOON Rx #:[id number] Sodium Acetate 20 meq 1031.3333 Potassium Phosphate 10 mmol Mvi, Adult No.4 with Vit K 10 ml Trace (Conc- 1Ml/Dose) 1 ml Magnesium Sulfate gm 1 gm Calcium Gluconate 0.5 gm In Amino Acid 5%-D15w 1,000 ml @ 100 mls/hr IV .BY DURATION MOON Rx#: [id number] Output: Urine 1350 1500 Uretheral (Joyner) 650 800 Other: Voiding Method Indwelling Catheter Indwelling Catheter # Voids 2 2 # Bowel Movements 2 - Labs CBC & Chem 7: 11/14/18 06:49 11/14/18 06:49 Labs: Abnormal Lab Results - Last 24 Hours (Table) 11/13/18 11/13/18 11/13/18 Range/Units 11:44 15:32 18:22 RBC 3.35 L (4.30-5.90) m/uL Hgb 8.4 L (13.0-17.5) gm/dL Hct 28.1 L (39.0-53.0) % MCH (25.0-35.0) pg MCHC 29.8 L (31.0-37.0) g/dL RDW 17.7 H (11.5-15.5) % Lymphocytes # 0.6 L (1.0-4.8) k/uL Carbon Dioxide (22-30) mmol/L BUN (9-20) mg/dL POC Glucose (mg/dL) 108 H 139 H (75-99) mg/dL Calcium (8.4-10.2) mg/dL Total Bilirubin (0.2-1.3) mg/dL AST (17-59) U/L ALT (21-72) U/L Alkaline Phosphatase (38-126) U/L Albumin (3.5-5.0) g/dL 11/13/18 11/14/18 11/14/18 Range/Units 23:55 06:08 06:49 RBC (4.30-5.90) m/uL Hgb (13.0-17.5) gm/dL Hct (39.0-53.0) % MCH (25.0-35.0) pg MCHC (31.0-37.0) g/dL RDW (11.5-15.5) % Lymphocytes # (1.0-4.8) k/uL Carbon Dioxide 20 L (22-30) mmol/L BUN 30 H (9-20) mg/dL POC Glucose (mg/dL) 124 H 117 H (75-99) mg/dL Calcium 8.2 L (8.4-10.2) mg/dL Total Bilirubin 1.7 H (0.2-1.3) mg/dL AST 165 H (17-59) U/L ALT 74 H (21-72) U/L Alkaline Phosphatase 477 H (38-126) U/L Albumin 2.8 L (3.5-5.0) g/dL 11/14/18 Range/Units 06:49 RBC 3.19 L (4.30-5.90) m/uL Hgb 7.8 L (13.0-17.5) gm/dL Hct 26.2 L (39.0-53.0) % MCH 24.5 L (25.0-35.0) pg MCHC 29.8 L (31.0-37.0) g/dL RDW 17.7 H (11.5-15.5) % Lymphocytes # (1.0-4.8) k/uL Carbon Dioxide (22-30) mmol/L BUN (9-20) mg/dL POC Glucose (mg/dL) (75-99) mg/dL Calcium (8.4-10.2) mg/dL Total Bilirubin (0.2-1.3) mg/dL AST (17-59) U/L ALT (21-72) U/L Alkaline Phosphatase (38-126) U/L Albumin (3.5-5.0) g/dL Microbiology - Last 24 Hours (Table) 11/11/18 23:37 Blood Culture - Preliminary Blood No Growth after 48 hours 11/11/18 22:45 Blood Culture - Preliminary Blood No Growth after 48 hours 11/07/18 13:38 Blood Culture - Final Blood No Growth after 144 hours 11/11/18 22:23 Urine Culture - Preliminary Urine,Voided Group D Enterococcus Assessment and Plan Plan: 1. Acute abdominal pain: X-ray shows ileus with bowel narrowing. Consult with Dr. Sebastian appreciated. NG tube has been removed by the patient. Status post barium enema and sigmoidoscopy with biopsy. Continue on Zofran, Protonix and Compazine. Patient and family do not want surgical intervention. Awaiting determination regarding surgery. Eliquis is on hold. 2. Acute kidney injury: Secondary to dehydration, continue with IV fluids. 3. Severe dehydration: IV hydration 4. Colon cancer with metastasis: Has been on chemotherapy and sees oncology on regular basis, oncology on consult 5. History of DVT: Continue heparin subcu. Patient has completed his course of therapy for DVT but patient's primary oncologist has recommended continuing eliquis due to cancer diagnosis in an outpatient setting. 6. Anemia: Secondary to chemotherapy and cancer, will monitor CBC. 7. Severe protein calorie malnutrition. Continue TPN. Dietitian is following. Plan is to try and increase oral intake and monitor. 8. Fever, probable urinary tract infection with urinary retention and bilateral hydronephrosis. Consult with Dr. Carter appreciated. Urine culture Group D enterococcus. Blood culture in progress. Antibiotics changed to Unasyn 9. Urinary retention requiring Joyner catheter placement. Flomax 0.4 mg daily added 8. GI prophylaxis. Protonix 40 mg daily 9. DVT prophylaxis. Eliquis is on hold by Dr. Sebastian for possible surgical intervention. Heparin subcu every 12 hours. CODE STATUS: Full code Discharge plan: Either home with [facility] or [facility] for subacute rehab. Patient declined hospice. Impression and plan of care have been directed as dictated by the signing physician. Lois Davis nurse practitioner acting as scribe for signing physician.
--- NOTE | 2018-11-14 10:56 | P.GSCN ---
History of Present Illness Consult date: 11/14/18 Reason for Consult: Bilateral hydronephrosis History of present illness: The patient is a 58-year-old male admitted on 11/07 or evaluation of abdominal pain and abdominal distention. He has a history of colon cancer which was diagnosed in 2013 and was treated with subtotal colectomy with ileorectal anastomosis. He developed metastatic colon cancer in 2015 associated with a large right-sided pelvic mass with invasion into the sacrum and secondary right hydronephrosis. Attempts were made to place a double-J catheter through the right ureter at that time but this was unsuccessful. 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 Since 2016 the patient has undergone multiple rounds of chemotherapy and his renal function tests have remained relatively s table with a creatinine in the 0.8-1 range. He was hospitalized for a possible small bowel obstruction one month ago and a computed tomography scan of the abdomen and pelvis on 10/22/2018 showed no evidence of left hydronephrosis. Marked right hydroureteronephrosis secondary to an obstruction in the right retroperitoneum and pelvis was present at that time. The patient's creatinine was 1.89 when he was admitted on 11/07 and was 0.89 when checked this morning. Renal ultrasound yesterday showed the new onset of mild to moderate left hydronephrosis. Urologic consultation was requested for consideration of a left ureteral stent because of the hydronephrosis. The patient denies any left flank pain. He usually voids every 2-3 hours during the day and twice at night. He has complained of urgency with both urinary and fecal incontinence. He complains of a slow urinary flow and sensations of incomplete bladder emptying. At the time of admission he was voiding on his own. He developed a fever and was cathed for a urine specimen earlier this week and apparently had 600 mL in his bladder at that time. A Joyner catheter was inserted later and drained 700 mL. Urine culture from the catheter grew group D enterococcus for which the patient is currently being treated with amoxicillin. His fever has resolved over the last 48 hours. 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 and that he R kidney hydronephrosis/loss of function because tumor cut off blood supply to that kidney, UTI with sepsis, R leg DVT History of Any Multi-Drug Resistant Organisms: C-DIFF Year Discovered:: 2016 MDRO Source:: Bowel Past Surgical History: Bowel Resection, Cholecystectomy Additional Past Surgical History / Comment(s): Colonectomy, R renal stent at [facility]-other attempts to stent had failed and pt had a ureter perforation, colonoscopies Past Anesthesia/Blood Transfusion Reactions: No Reported Reaction Additional Past Anesthesia/Blood Transfusion Reaction / Comm: Pt has received blood in past without reaction. Past Psychological History: No Psychological Hx Reported Additional Psychological History / Comment(s): Pt resides with his spouse. He uses a cane to ambulate. He drives seldom. He is independent. Smoking Status: Never smoker Past Alcohol Use History: None Reported Past Drug Use History: None Reported - Past Family History Brother(s) Family Medical History: Cancer Additional Family Medical History / Comment(s): One brother had leukemia and another brother from SIDS Father Additional Family Medical History / Comment(s): Father from a ruptured brain aneurysm at the age of 87yrs. Mother Family Medical History: Unable to Obtain Additional Family Medical History / Comment(s): Pt states mother is 87yrs old and does not go to the doctors. Medications and Allergies Home Medications Medication Instructions Recorded Confirmed Type Apixaban [Eliquis] 2.5 mg PO BID 01/11/18 11/07/18 History Diphenox-Atrop 2.5-0.025 mg 1 tab PO QID PRN 01/11/18 11/07/18 History [Lomotil] oxyCODONE-APAP 10-325MG [Percocet 1 - 2 tab PO Q6HR PRN 01/11/18 11/07/18 History 10-325 mg] Allergies Allergy/AdvReac Type Severity Reaction Status Date / Time lorazepam [From Ativan] AdvReac Hallucinati Verified 11/12/18 15:41 ons Surgical - Exam Vital Signs Temp Pulse Resp BP Pulse Ox 97.7 F 99 18 112/85 97 11/07/18 12:29 11/07/18 12:29 11/07/18 12:29 11/07/18 12:29 11/07/18 12:29 - General no distress, chronically ill - ENT no hearing loss - Neck no masses, no lymphadectomy - Abdomen Abdomen: non tender, no organomegaly Hernia: none - Genitourinary normal penis with no external lesions, testicles non-tender, other (Joyner catheter is in place and is draining clear urine) Results - Labs 11/14/18 06:49 11/14/18 06:49 Abnormal Lab Results - Last 24 Hours (Table) 11/13/18 11/13/18 11/13/18 Range/Units 11:44 15:32 18:22 RBC 3.35 L (4.30-5.90) m/uL Hgb 8.4 L (13.0-17.5) gm/dL Hct 28.1 L (39.0-53.0) % MCH (25.0-35.0) pg MCHC 29.8 L (31.0-37.0) g/dL RDW 17.7 H (11.5-15.5) % Lymphocytes # 0.6 L (1.0-4.8) k/uL Carbon Dioxide (22-30) mmol/L BUN (9-20) mg/dL POC Glucose (mg/dL) 108 H 139 H (75-99) mg/dL Calcium (8.4-10.2) mg/dL Total Bilirubin (0.2-1.3) mg/dL AST (17-59) U/L ALT (21-72) U/L Alkaline Phosphatase (38-126) U/L Albumin (3.5-5.0) g/dL 11/13/18 11/14/18 11/14/18 Range/Units 23:55 06:08 06:49 RBC (4.30-5.90) m/uL Hgb (13.0-17.5) gm/dL Hct (39.0-53.0) % MCH (25.0-35.0) pg MCHC (31.0-37.0) g/dL RDW (11.5-15.5) % Lymphocytes # (1.0-4.8) k/uL Carbon Dioxide 20 L (22-30) mmol/L BUN 30 H (9-20) mg/dL POC Glucose (mg/dL) 124 H 117 H (75-99) mg/dL Calcium 8.2 L (8.4-10.2) mg/dL Total Bilirubin 1.7 H (0.2-1.3) mg/dL AST 165 H (17-59) U/L ALT 74 H (21-72) U/L Alkaline Phosphatase 477 H (38-126) U/L Albumin 2.8 L (3.5-5.0) g/dL 11/14/18 Range/Units 06:49 RBC 3.19 L (4.30-5.90) m/uL Hgb 7.8 L (13.0-17.5) gm/dL Hct 26.2 L (39.0-53.0) % MCH 24.5 L (25.0-35.0) pg MCHC 29.8 L (31.0-37.0) g/dL RDW 17.7 H (11.5-15.5) % Lymphocytes # (1.0-4.8) k/uL Carbon Dioxide (22-30) mmol/L BUN (9-20) mg/dL POC Glucose (mg/dL) (75-99) mg/dL Calcium (8.4-10.2) mg/dL Total Bilirubin (0.2-1.3) mg/dL AST (17-59) U/L ALT (21-72) U/L Alkaline Phosphatase (38-126) U/L Albumin (3.5-5.0) g/dL Microbiology - Last 24 Hours (Table) 11/11/18 23:37 Blood Culture - Preliminary Blood No Growth after 48 hours 11/11/18 22:45 Blood Culture - Preliminary Blood No Growth after 48 hours 11/07/18 13:38 Blood Culture - Final Blood No Growth after 144 hours 11/11/18 22:23 Urine Culture - Preliminary Urine,Voided Group D Enterococcus Diabetes panel 11/14/18 Range/Units 06:49 Sodium 137 (137-145) mmol/L Potassium 3.7 (3.5-5.1) mmol/L Chloride 104 (98-107) mmol/L Carbon Dioxide 20 L (22-30) mmol/L BUN 30 H (9-20) mg/dL Creatinine 0.89 (0.66-1.25) mg/dL Glucose 85 (74-99) mg/dL Calcium 8.2 L (8.4-10.2) mg/dL AST 165 H (17-59) U/L ALT 74 H (21-72) U/L Alkaline Phosphatase 477 H (38-126) U/L Total Protein 7.1 (6.3-8.2) g/dL Albumin 2.8 L (3.5-5.0) g/dL Calcium panel 11/14/18 Range/Units 06:49 Calcium 8.2 L (8.4-10.2) mg/dL Phosphorus 3.3 (2.5-4.5) mg/dL Albumin 2.8 L (3.5-5.0) g/dL Pituitary panel 11/14/18 Range/Units 06:49 Sodium 137 (137-145) mmol/L Potassium 3.7 (3.5-5.1) mmol/L Chloride 104 (98-107) mmol/L Carbon Dioxide 20 L (22-30) mmol/L BUN 30 H (9-20) mg/dL Creatinine 0.89 (0.66-1.25) mg/dL Glucose 85 (74-99) mg/dL Calcium 8.2 L (8.4-10.2) mg/dL Adrenal panel 11/14/18 Range/Units 06:49 Sodium 137 (137-145) mmol/L Potassium 3.7 (3.5-5.1) mmol/L Chloride 104 (98-107) mmol/L Carbon Dioxide 20 L (22-30) mmol/L BUN 30 H (9-20) mg/dL Creatinine 0.89 (0.66-1.25) mg/dL Glucose 85 (74-99) mg/dL Calcium 8.2 L (8.4-10.2) mg/dL Total Bilirubin 1.7 H (0.2-1.3) mg/dL AST 165 H (17-59) U/L ALT 74 H (21-72) U/L Alkaline Phosphatase 477 H (38-126) U/L Total Protein 7.1 (6.3-8.2) g/dL Albumin 2.8 L (3.5-5.0) g/dL Assessment and Plan Assessment: The patient's right-sided hydronephrosis is chronic and is related to obstruction from his pelvic mass. 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 The patient's left-sided hydronephrosis is new in onset as it had not been seen on a computed tomography scan performed on 10/22/2018. I reviewed the patient's computed tomography scan and there did not appear to be any mass in the left retroperitoneum or pelvis at that time which could have progressed and resulted in the left-sided hydronephrosis. It is possible that the left-sided hydronephrosis is related to the patient's elevated post void residual which was noted earlier this week and has been treated with placement of a Joyner catheter. At the present time the patient's renal function is normal and he is not symptomatic from the hydronephrosis. In view of this there is no indication for placement of a left double-J catheter. The patient had symptoms of bladder outflow obstruction prior to being admitted. I discussed the addition of tamsulosin and the patient is interested in this. His catheter should remain in place for at least 2 days prior to a voiding trial. If he continues to have an elevated post void residual I also discussed self-catheterization with the patient as I believe that it would be better tolerated than an indwelling catheter and the patient says that he would be interested in this if it is necessary. Dr. Mcgrath has seen the patient in the past and will follow-up with him next week
[2018-11-14 11:54] LABS: Glucose,Whole Blood 127 mg/dL (75-99)
--- NOTE | 2018-11-14 15:10 | P.PN ---
Subjective Progress Note Date: 11/14/18 Patient did have bowel movement overnight. He denies any abdominal pain he denies any nausea vomiting he's tolerating a diet Objective - Vital Signs Vital signs: Vital Signs Temp 98.5 F 11/14/18 12:21 Pulse 83 11/14/18 12:21 Resp 16 11/14/18 12:21 BP 102/64 11/14/18 12:21 Pulse Ox 100 11/14/18 12:21 Intake & Output 11/13/18 11/14/18 11/14/18 18:59 06:59 18:59 Intake Total 1031.3333 1020.3333 Output Total 1350 1500 Balance -318.6667 -479.6667 Weight 75.4 kg 75.2 kg Intake: Intake, IV Titration 1031.3333 1020.3333 Amount Sodium Acetate 20 meq 1020.3333 Potassium Phosphate 10 mmol Magnesium Sulfate gm 1 gm Calcium Gluconate 0 .5 gm In Amino Acid 5%- D15w 1,000 ml @ 100 mls/ hr IV .BY DURATION MOON Rx #:[id number] Sodium Acetate 20 meq 1031.3333 Potassium Phosphate 10 mmol Mvi, Adult No.4 with Vit K 10 ml Trace (Conc- 1Ml/Dose) 1 ml Magnesium Sulfate gm 1 gm Calcium Gluconate 0.5 gm In Amino Acid 5%-D15w 1,000 ml @ 100 mls/hr IV .BY DURATION MOON Rx#: [id number] Output: Urine 1350 1500 Uretheral (Joyner) 650 800 Other: Voiding Method Indwelling Catheter Indwelling Catheter Indwelling Catheter # Voids 2 2 # Bowel Movements 2 - Constitutional General appearance: Present: cooperative - Respiratory Details: Nonlabored - Gastrointestinal Gastrointestinal Comment(s): Soft nontender nondistended - Psychiatric Psychiatric: Present: A&O x's 3 - Labs CBC & Chem 7: 11/14/18 06:49 11/14/18 06:49 Labs: Abnormal Lab Results - Last 24 Hours (Table) 11/11/18 11/13/18 11/13/18 Range/Units 19:49 15:32 18:22 RBC 3.35 L (4.30-5.90) m/uL Hgb 8.4 L (13.0-17.5) gm/dL Hct 28.1 L (39.0-53.0) % MCH (25.0-35.0) pg MCHC 29.8 L (31.0-37.0) g/dL RDW 17.7 H (11.5-15.5) % Lymphocytes # 0.6 L (1.0-4.8) k/uL Carbon Dioxide (22-30) mmol/L BUN (9-20) mg/dL POC Glucose (mg/dL) 139 H (75-99) mg/dL Calcium (8.4-10.2) mg/dL Total Bilirubin (0.2-1.3) mg/dL AST (17-59) U/L ALT (21-72) U/L Alkaline Phosphatase (38-126) U/L Albumin (3.5-5.0) g/dL Crossmatch See Detail 11/13/18 11/14/18 11/14/18 Range/Units 23:55 06:08 06:49 RBC (4.30-5.90) m/uL Hgb (13.0-17.5) gm/dL Hct (39.0-53.0) % MCH (25.0-35.0) pg MCHC (31.0-37.0) g/dL RDW (11.5-15.5) % Lymphocytes # (1.0-4.8) k/uL Carbon Dioxide 20 L (22-30) mmol/L BUN 30 H (9-20) mg/dL POC Glucose (mg/dL) 124 H 117 H (75-99) mg/dL Calcium 8.2 L (8.4-10.2) mg/dL Total Bilirubin 1.7 H (0.2-1.3) mg/dL AST 165 H (17-59) U/L ALT 74 H (21-72) U/L Alkaline Phosphatase 477 H (38-126) U/L Albumin 2.8 L (3.5-5.0) g/dL Crossmatch 11/14/18 11/14/18 Range/Units 06:49 11:52 RBC 3.19 L (4.30-5.90) m/uL Hgb 7.8 L (13.0-17.5) gm/dL Hct 26.2 L (39.0-53.0) % MCH 24.5 L (25.0-35.0) pg MCHC 29.8 L (31.0-37.0) g/dL RDW 17.7 H (11.5-15.5) % Lymphocytes # (1.0-4.8) k/uL Carbon Dioxide (22-30) mmol/L BUN (9-20) mg/dL POC Glucose (mg/dL) 127 H (75-99) mg/dL Calcium (8.4-10.2) mg/dL Total Bilirubin (0.2-1.3) mg/dL AST (17-59) U/L ALT (21-72) U/L Alkaline Phosphatase (38-126) U/L Albumin (3.5-5.0) g/dL Crossmatch Microbiology - Last 24 Hours (Table) 11/11/18 22:23 Urine Culture - Final Urine,Voided Enterococcus faecalis 11/11/18 23:37 Blood Culture - Preliminary Blood No Growth after 48 hours 11/11/18 22:45 Blood Culture - Preliminary Blood No Growth after 48 hours 11/07/18 13:38 Blood Culture - Final Blood No Growth after 144 hours Assessment and Plan Assessment: Stage IV colorectal cancer Plan: No plans for acute surgical intervention right now. Diet as tolerated. Patient may eventually need a diverting procedure if he were to become obstructed.
[2018-11-14] MEDS: MIRTAZAPINE 15 MG TAB PO SCH (17:23)
[2018-11-14 17:39] LABS: Glucose,Whole Blood 206 mg/dL (75-99)
[2018-11-15 00:13] LABS: Glucose,Whole Blood 88 mg/dL (75-99)
[2018-11-15] MEDS: INSULIN ASPART (NovoLOG) 100 UNIT/ML VIAL SQ SCH ×4 (00:15→17:37)
[2018-11-15] MEDS: oxyCODONE-APAP 10-325MG 1 EACH TAB PO PRN ×5 (01:20→20:28)
[2018-11-15] MEDS: LACTATED RINGERS 1,000 ML IV SCH ×2 (02:45→21:39)
[2018-11-15] MEDS: PROCHLORPERAZINE 10 MG TAB PO SCH ×4 (03:37→21:38)
[2018-11-15] MEDS: AMPICILLIN-SULBACTAM 3 GM in SODIUM CHLORIDE 0.9% 100 ML IVPB SCH ×3 (04:51→17:37)
[2018-11-15 06:11] LABS: Glucose,Whole Blood 98 mg/dL (75-99)
[2018-11-15] MEDS: [UNRECOGNIZED DRUG - REMARK] IV SCH ×16 (06:21→06:25)
[2018-11-15 08:02] LABS: ALT 176 U/L (21-72); AST 365 U/L (17-59); Albumin 2.3 g/dL (3.5-5.0); Alkaline Phosphatase 605 U/L (38-126); Anion Gap 8 mmol/L; Blood Urea Nitrogen 23 mg/dL (9-20); Calcium 7.8 mg/dL (8.4-10.2); Carbon Dioxide 22 mmol/L (22-30); Chloride 105 mmol/L (98-107); Glucose 94 mg/dL (74-99); Phosphorus 3.3 mg/dL (2.5-4.5); Sodium 135 mmol/L (137-145)
[2018-11-15 08:54] LABS: Anisocytosis Slight; HCT 23.3 % (39.0-53.0); Hypochromasia Marked; MCH 24.6 pg (25.0-35.0); MCHC 29.7 g/dL (31.0-37.0); MCV 82.9 fL (80.0-100.0); Mean Platelet Volume 8.2; Platelet Count 211 k/uL (150-450); RBC 2.82 m/uL (4.30-5.90); RDW 17.4 % (11.5-15.5)
[2018-11-15 09:56] LABS: HGB 6.9 gm/dL (13.0-17.5)
--- NOTE | 2018-11-15 09:56 | P.PN ---
Subjective Progress Note Date: 11/15/18 This is a 57-year-old male patient of Dr. Russ's with past medical history of stage III colon cancer, his been on chemotherapy he is also had metastasis to the spine. Patient is followed by Dr. Dang on a regular basis. Patient was recently discharged from 3 days ago from the hospital with abdominal pain and similar symptoms. Patient was sent home with homecare, he reports he had multiple episodes of vomiting and diarrhea and became increasingly weak. Chest x-ray showed atelectasis at the lateral left lung base that is cleared from previous exam, abdominal x-ray shows dilated bowel possible ileus that was unchanged from previous exam, and possible distal large bowel mechanical obstruc tion. Labs show hemoglobin 9, WBC 14.5, sodium 134, BUN 60, creatinine 1.89. He is afebrile, heart rate running in the 90s, blood pressure 120/76, 94% on room air. Surgery and oncology have been consulted, will obtain blood cultures. Patient will be scheduled for barium enema tomorrow to rule out distal bowel obstruction from pelvic tumor mass, and she was placed without difficulty by Dr. Sebastian. 11/09: The patient has been afebrile, heart rate running in the 80s and 90s, blood pressure 117/78, pulse ox 90% on room air. Sodium 140, potassium 3.9, chloride 108, CO2 23, BUN 27, creatinine 0.93. Patient had NG tube placed but after 3 hours he pulled this out. He had episode of confusion and hallucination after receiving Ativan during the NG tube placement. Patient had a sitter at the bedside for brief period and this was discontinued. Abdomen is less distended today. He is on TPN. He's been seen by Dr. Sebastian and underwent a barium enema this morning which revealed bowel narrowing within the pelvis consistent with patient's history of distal bowel obstruction. Surgical plans to be discussed with the patient and his . Discussed discharge planning and patient's is requesting placement at [facility] for subacute rehab at the time of discharge. Case management and social welfare clerk following the patient. 11/10: Patient underwent sigmoidoscopy with biopsy today that found metastatic colon cancer, anastomotic narrowing with atypical mucosa. Dr. Sebastian has recommended continuing TPN and she feels he is a surgical candidate. Eliyesi has been placed on hold. Dr. Sebastian will discuss with Dr. Tariq. Biopsy is pending. Patient has been afebrile, heart rate in the 70s, blood pressure 112/66, pulse ox 96% on room air. Sodium 141, chloride 110, potassium 4.4, CO2 24, BUN 23, creatinine 0.95. Blood sugars running between 109 and 133. Albumin 2.6. 11/11: agricultural crop farm manager has discussed hospice option with the patient and he is currently waiting to discuss with his and does not want to make a decision. Dr. Sebastian has him scheduled for procedure this afternoon but patient is stating he is not going to undergo surgery. Patient is eating very little. He is still on TPN. Patient has been afebrile, heart rate running in the 70s to 100, blood pressure 103/70, pulse ox 100% on room air. Sodium 139, potassium 3.9, chloride 108, CO2 22, BUN 28 creatinine 0.95. Magnesium 1.5, total bilirubin 1.5, AST 37, ALT 24, alkaline phosphatase 255. 11/12: Patient is still waiting discussion regarding any surgical intervention with Dr. Sebastian. Patient is more lethargic today. He does open his eyes to verbal stimuli. Oral intake is poor. He is continued on TPN. He has been afebrile, heart rate in the 70s, blood pressure 95/57, pulse ox 99% on room air. White count is 9.5, hemoglobin 7.7, platelet count 212. Sodium 135, potassium 3.4, chloride 105, CO2 21, BUN 31 and creatinine 0.97. Blood sugars running between 99 and 147. Total bilirubin 2.4, AST 35, ALT 24, albumin 2.5, total protein 6.2. 11/13: Patient has been seen by Dr. Carter regarding fever up to 102. White count remains normal, hemoglobin 7.7, creatinine 1.01. Chest x-ray showed no acute cardiopulmonary process. Abdominal x-ray shows distended and dilated bowels with gas consistent with ileus or partial mechanical obstruction. No change compared to last exam. Ultrasound of the abdomen and pelvis reveals suboptimal study. No ascites evident. Severe right-sided hydronephrosis redemonstrated. New [id number] left-sided hydronephrosis suspected. Yesterday, patient was started on cefepime and vancomycin by oncology. Patient denies having any fever or chills today. He continues to have poor oral intake and is on TPN. He is not interested in taking any protein supplements including Ensure, [place] instant breakfast or Magic cups. Dietitian is attempting to supply a protein rich diet for him with limitations. Patient is only getting up to the bathroom rarely. He is mostly staying in bed. He complains of significant weakness. He denies having any pain with urination or increased frequency. He has Joyner catheter placed for retention. He has generalized abdominal pain which is been chronic. He denies suprapubic pain and flank pain. He states he is tolerating a diet and plan with Dr. Sebastian is to monitor tolerance of his diet over the weekend. Patient has verbalized to staff yesterday and the day before that he does not want to undergo surgery. Hospice has been addressed with the patient from oncology on this admission and previous admission and patient is declining. Revisited today and patient also states he is not ready for hospice and did not want hospice informational meeting. Clarified CODE STATUS which is no code. Urology consult has been added by Dr. Carter regarding a new left-sided hydronephrosis. Antibiotics changed to Unasyn. Patient ambulated in hallway today. 11/14: Patient was resting comfortably up in a chair. He is waiting for his to come with breakfast. Patient denies any abdominal discomfort nausea or vomiting. Patient is having bowel movements that are not diarrhea or bloody. He is tolerating his anticoagulant without any difficulties. Patient spoke with Dr. Tariq yesterday evening and has decided not to move forward with the CAT scan, surgery, or stent placement to bilateral kidneys. At this time he will continue to monitor his symptoms and see if he can tolerate food. 11/15: Patient has been afebrile, heart rate in the 70s, blood pressure 95/52. Patient is still receiving TPN he is also tolerating oral intake without any nausea or vomiting. Patient is continuing to have bowel movements with no d iarrhea or bloody stool. At this time no surgical interventions will be completed. He does have indwelling catheter. Review of Systems Constitutional: Reports fatigue, Reports weakness, reports malaise, Denies chills, Denies fever Ears, nose, mouth and throat: Denies dysphagia, Denies headache, Denies hoarseness, Denies mouth pain, Denies nasal congestion, Denies nasal discharge, Denies post-nasal drip, Denies sore throat Cardiovascular: Denies chest pain, Denies edema, Denies high blood pressure, Denies leg edema, Denies orthopnea, Denies palpitations, Denies shortness of breath, Denies syncope Respiratory: Denies congestion, Denies cough, Denies dyspnea, Denies pain Gastrointestinal: Reports abdominal pain, reports less abdominal distention, den ies diarrhea, denies loss of appetite, denies nausea, denies vomiting, reports bloating, Denies constipation, Denies dyspepsia, Denies hematemesis, reports anorexia. Genitourinary: Denies dysuria, Denies flank pain, Denies hematuria, Denies nocturia, Denies urinary frequency, Denies urinary retention Musculoskeletal: Reports muscle weakness, Denies atrophy, Denies frequent falls, Denies gait dysfunction, Denies leg numbness/tingling, Denies limitation of motion, Denies neck pain, Denies neck stiffness Neurological: Reports weakness, reports confusion, Denies gait dysfunction, Denies headaches, Denies memory loss, Denies numbness, Denies paralysis, Denies seizures, Denies syncope Hematologic/Lymphatic: Denies lymphadenopathy Objective - Vital Signs Vital signs: Vital Signs Temp 98.5 F 11/15/18 05:00 Pulse 76 11/15/18 05:00 Resp 16 11/15/18 05:00 BP 95/52 11/15/18 05:00 Pulse Ox 100 11/15/18 05:00 Intake & Output 11/14/18 11/15/18 11/15/18 18:59 06:59 18:59 Intake Total 1041.3333 Output Total 600 1600 Balance -600 558.6667 Weight 75.3 kg Intake: Intake, IV Titration 1041.3333 Amount Sodium Acetate 20 meq 1041.3333 Potassium Phosphate 10 mmol Mvi, Adult No.4 with Vit K 10 ml Trace (Conc- 1Ml/Dose) 1 ml Magnesium Sulfate gm 1 gm Calcium Gluconate 0.5 gm Potassium Chloride 20 meq In Amino Acid 5%-D15w 1, 000 ml @ 100 mls/hr IV . BY DURATION [facility] Rx#: [id number] Output: Urine 600 1600 Uretheral (Joyner) 1000 Other: Voiding Method Indwelling Catheter Indwelling Catheter # Voids 2 - Exam General Appearance: Alert, cooperative, no distress, appears stated age. Neck HEENT: Supple, no lymphadenopathy, no thyroid enlargement, no carotid bruits. Lungs: Clear to auscultation without crackles or wheezes no rhonchi, no deformity. Chest Wall: Chest wall normal expansion with deep inspiration no tenderness and no deformity was found on exam, no costochondral pain or discomfort. Heart: Regular rate and rhythm, S1, S2 normal, no murmur, rub or gallop. Back: Symmetric, no curvature, ROM normal, no CVA tenderness. Abdomen: Soft, non-tender, no rebound or rigidity, no hepatosplenomegaly. Extremities: Extremities normal, atraumatic, no cyanosis or edema. Pulses: 2+ and symmetric. Skin: Skin color, texture, tugor sluggish, no rashes or lesions. Neurologic: Alert oriented x3 cranial nerves II through XII intact, no motor deficit, no abnormal balance or gait - Labs CBC & Chem 7: 11/14/18 06:49 11/15/18 07:08 Labs: Abnormal Lab Results - Last 24 Hours (Table) 11/11/18 11/14/18 11/14/18 Range/Units 19:49 11:52 17:25 Sodium (137-145) mmol/L BUN (9-20) mg/dL POC Glucose (mg/dL) 127 H 206 H (75-99) mg/dL Calcium (8.4-10.2) mg/dL AST (17-59) U/L ALT (21-72) U/L Alkaline Phosphatase (38-126) U/L Total Protein (6.3-8.2) g/dL Albumin (3.5-5.0) g/dL Crossmatch See Detail 11/15/18 Range/Units 07:08 Sodium 135 L (137-145) mmol/L BUN 23 H (9-20) mg/dL POC Glucose (mg/dL) (75-99) mg/dL Calcium 7.8 L (8.4-10.2) mg/dL AST 365 H (17-59) U/L ALT 176 H (21-72) U/L Alkaline Phosphatase 605 H (38-126) U/L Total Protein 6.0 L (6.3-8.2) g/dL Albumin 2.3 L (3.5-5.0) g/dL Crossmatch Microbiology - Last 24 Hours (Table) 11/11/18 23:37 Blood Culture - Preliminary Blood No Growth after 72 hours 11/11/18 22:45 Blood Culture - Preliminary Blood No Growth after 72 hours 11/11/18 22:23 Urine Culture - Final Urine,Voided Enterococcus faecalis Assessment and Plan Plan: 1. Acute abdominal pain: X-ray shows ileus with bowel narrowing. Consult with Dr. Sebastian appreciated. NG tube has been removed by the patient. Status post barium enema and sigmoidoscopy with biopsy. Continue on Zofran, Protonix and Compazine. Patient and family do not want surgical intervention. No surgical interventions. Eliquis is on hold. 2. Acute kidney injury: Secondary to dehydration, continue with IV fluids. 3. Severe dehydration: IV hydration 4. Colon cancer with metastasis: Has been on chemotherapy and sees oncology on regular basis, oncology on consult 5. History of DVT: Continue heparin subcu. Patient has completed his course of therapy for DVT but patient's primary oncologist has recommended continuing eliquis due to cancer diagnosis in an outpatient setting. 6. Anemia: Secondary to chemotherapy and cancer, will monitor CBC. 7. Severe protein calorie malnutrition. Continue TPN. Dietitian is following. Plan is to try and increase oral intake and monitor. 8. Fever, probable urinary tract infection with urinary retention and bilateral hydronephrosis. Consult with Dr. Carter appreciated. Urine culture Group D enterococcus. Blood culture in progress. Antibiotics changed to Unasyn 9. Urinary retention requiring Joyner catheter placement. Flomax 0.4 mg daily added 8. GI prophylaxis. Protonix 40 mg daily 9. DVT prophylaxis. Eliquis is on hold. Heparin subcu every 12 hours. CODE STATUS: Full code Discharge plan: Either home with [facility] or [facility] for subacute rehab. Patient declined hospice. Impression and plan of care have been directed as dictated by the signing physician. Lois Davis nurse practitioner acting as scribe for signing physician.
[2018-11-15] MEDS: GABAPENTIN 100 MG CAP PO SCH ×2 (10:12→20:28)
[2018-11-15] MEDS: TAMSULOSIN 0.4 MG CAP.ER.24H PO SCH (10:13)
[2018-11-15] MEDS: HEPARIN SODIUM,PORCINE 5,000 UNIT/ML 1 ML VIAL SQ SCH ×2 (10:13→20:28)
[2018-11-15] MEDS: FAT EMULSION 20% 250 ML IV SCH (10:13)
[2018-11-15] MEDS: MAG HYDROX/AL HYDROX/SIMETH 30 ML, LIDOCAINE VISCOUS 30 ML, diphenhydrAMINE ELIXIR 75 M... PO SCH ×12 (10:13→21:38)
[2018-11-15 11:58] LABS: Glucose,Whole Blood 105 mg/dL (75-99)
[2018-11-15 12:06] LABS: Band Neutrophils % 1 %; Eosinophils # (M) 0.25 k/uL (0-0.7); Monocytes # (M) 0.65 k/uL (0-1.0); Myelocytes # (M) 0.05 k/uL (0); Myelocytes % 1 %; Neutrophils % (M) 67 %; Nucleated Red Blood Cells 0 /100 WBC (0-0); Total Cells Counted 200
--- NOTE | 2018-11-15 12:37 | P.PN ---
Subjective Progress Note Date: 11/15/18 The patient denies any new complaints today. He continues to have generalized weakness and is on TPN. He states that his diarrhea is back to baseline. Pain is controlled. He has been tolerating orals without nausea or vomiting at this time. Objective - Vital Signs Vital signs: Vital Signs Temp 98.5 F 11/15/18 05:00 Pulse 76 11/15/18 05:00 Resp 16 11/15/18 05:00 BP 95/52 11/15/18 05:00 Pulse Ox 100 11/15/18 05:00 Intake & Output 11/14/18 11/15/18 11/15/18 18:59 06:59 18:59 Intake Total 1041.3333 Output Total 600 1600 Balance -600 -868.6651 Weight 75.3 kg Intake: Intake, IV Titration 1041.3333 Amount Sodium Acetate 20 meq 1041.3333 Potassium Phosphate 10 mmol Mvi, Adult No.4 with Vit K 10 ml Trace (Conc- 1Ml/Dose) 1 ml Magnesium Sulfate gm 1 gm Calcium Gluconate 0.5 gm Potassium Chloride 20 meq In Amino Acid 5%-D15w 1, 000 ml @ 100 mls/hr IV . BY DURATION [facility] Rx#: [id number] Output: Urine 600 1600 Uretheral (Joyner) 1000 Other: Voiding Method Indwelling Catheter Indwelling Catheter Indwelling Catheter # Voids 2 - Constitutional General appearance: Present: no acute distress - EENT Eyes: Present: EOMI ENT: Present: hearing grossly normal, normal oropharynx - Respiratory Respiratory: bilateral: CTA - Cardiovascular Rhythm: regular Heart sounds: normal: S1, S2 - Gastrointestinal General gastrointestinal: Present: distended, normal bowel sounds, soft - Integumentary Integumentary: Present: normal - Neurologic Neurologic: Present: CNII-XII intact - Musculoskeletal Musculoskeletal: Present: generalized weakness, strength equal bilaterally - Psychiatric Psychiatric: Present: A&O x's 3, appropriate affect - Labs CBC & Chem 7: 11/15/18 07:08 11/15/18 07:08 Labs: Abnormal Lab Results - Last 24 Hours (Table) 11/14/18 11/15/18 11/15/18 Range/Units 17:25 07:08 07:08 RBC 2.82 L (4.30-5.90) m/uL Hgb 6.9 L* (13.0-17.5) gm/dL Hct 23.3 L (39.0-53.0) % MCH 24.6 L (25.0-35.0) pg MCHC 29.7 L (31.0-37.0) g/dL RDW 17.4 H (11.5-15.5) % Lymphocytes # (Manual) 0.80 L (1.0-4.8) k/uL Myelocytes # (Manual) 0.05 H (0) k/uL Sodium 135 L (137-145) mmol/L BUN 23 H (9-20) mg/dL POC Glucose (mg/dL) 206 H (75-99) mg/dL Calcium 7.8 L (8.4-10.2) mg/dL AST 365 H (17-59) U/L ALT 176 H (21-72) U/L Alkaline Phosphatase 605 H (38-126) U/L Total Protein 6.0 L (6.3-8.2) g/dL Albumin 2.3 L (3.5-5.0) g/dL 11/15/18 Range/Units 11:56 RBC (4.30-5.90) m/uL Hgb (13.0-17.5) gm/dL Hct (39.0-53.0) % MCH (25.0-35.0) pg MCHC (31.0-37.0) g/dL RDW (11.5-15.5) % Lymphocytes # (Manual) (1.0-4.8) k/uL Myelocytes # (Manual) (0) k/uL Sodium (137-145) mmol/L BUN (9-20) mg/dL POC Glucose (mg/dL) 105 H (75-99) mg/dL Calcium (8.4-10.2) mg/dL AST (17-59) U/L ALT (21-72) U/L Alkaline Phosphatase (38-126) U/L Total Protein (6.3-8.2) g/dL Albumin (3.5-5.0) g/dL Microbiology - Last 24 Hours (Table) 11/11/18 23:37 Blood Culture - Preliminary Blood No Growth after 72 hours 11/11/18 22:45 Blood Culture - Preliminary Blood No Growth after 72 hours 11/11/18 22:23 Urine Culture - Final Urine,Voided Enterococcus faecalis Assessment and Plan (1) Partial small bowel obstruction Narrative/Plan: At this time the patient is tolerating by mouth without nausea or vomiting. He is being followed closely by surgery. At this time there is concern for eventual progression of obstructive symptoms. Given his current performance status and underlying disease, the plan however is to manage conservatively as long as possible. Current Visit: No Status: Chronic Priority: High Code(s): K56.600 - PARTIAL INTESTINAL OBSTRUCTION, UNSPECIFIED TO CAUSE SNOMED Code(s): 051212985 (2) UTI (urinary tract infection) Narrative/Plan: Antibiotics per ID. Current Visit: No Status: Acute Code(s): N39.0 - URINARY TRACT INFECTION, SITE NOT SPECIFIED SNOMED Code(s): 73171318 (3) Obstructive uropathy Narrative/Plan: The patient has been assessed by urology, and their notes were reviewed. The right-sided hydronephrosis is chronic, and the kidney is nonfunctional. The left-sided hydronephrosis is new. According to urology assessment and did not appear to be obvious obstruction and this is felt to be more due to bladder outflow problems. Therefore at this time the plan is to manage it with Flomax, and catheterization. Renal function is normal. Current Visit: Yes Status: Acute Code(s): N13.9 - OBSTRUCTIVE AND REFLUX UROPATHY, UNSPECIFIED SNOMED Code(s): 1074210 (4) Colon adenocarcinoma Narrative/Plan: The patient's overall prognosis from this standpoint is felt to be very guarded. He has progressed on multiple lines of therapy. There is definite concern for progression even on his current line of therapy based on his clinical presentation. Performance status remains overall poor. Therefore a comfort care approach has been discussed with him multiple times, but at this time he continues to refuse hospice. We had planned on doing a CT of the abdomen and pelvis with contrast to try to assess if the patient is definitely progressing or not. However he was very apprehensive of doing that, given the new obstructive uropathy. At this time there are no plans from urology, as noted, for stent intervention. As the patient is improving symptomatically, it would be reasonable to plan undergoing a PET scan as an outpatient on discharge, with follow-up with Dr. Tariq in the office subsequently. If progression can be documented objectively based on the new PET scan, then treatment options as well as goals of treatment can be reassessed by Dr. Tariq. The case was discussed with the admitting service Current Visit: Yes Status: Chronic Priority: High Code(s): C18.9 - MALIGNANT NEOPLASM OF COLON, UNSPECIFIED SNOMED Code(s): 782541321
--- NOTE | 2018-11-15 12:44 | P.PN ---
Subjective Progress Note Date: 11/15/18 Patient did have bowel movement overnight. He denies any abdominal pain he denies any nausea vomiting he's tolerating a diet Objective - Vital Signs Vital signs: Vital Signs Temp 98.3 F 11/15/18 12:34 Pulse 75 11/15/18 12:34 Resp 16 11/15/18 12:34 BP 91/56 11/15/18 12:34 Pulse Ox 100 11/15/18 12:34 Intake & Output 11/14/18 11/15/18 11/15/18 18:59 06:59 18:59 Intake Total 1041.3333 Output Total 600 1600 Balance -600 -910.6667 Weight 75.3 kg Intake: Intake, IV Titration 1041.3333 Amount Sodium Acetate 20 meq 1041.3333 Potassium Phosphate 10 mmol Mvi, Adult No.4 with Vit K 10 ml Trace (Conc- 1Ml/Dose) 1 ml Magnesium Sulfate gm 1 gm Calcium Gluconate 0.5 gm Potassium Chloride 20 meq In Amino Acid 5%-D15w 1, 000 ml @ 100 mls/hr IV . BY DURATION [facility] Rx#: [id number] Output: Urine 600 1600 Uretheral (Joyner) 1000 Other: Voiding Method Indwelling Catheter Indwelling Catheter Indwelling Catheter # Voids 2 - Constitutional General appearance: Present: cooperative - Respiratory Details: nonlabored - Cardiovascular Rhythm: regular - Gastrointestinal Gastrointestinal Comment(s): s/nt/nd - Psychiatric Psychiatric: Present: A&O x's 3 - Labs CBC & Chem 7: 11/15/18 07:08 11/15/18 07:08 Labs: Abnormal Lab Results - Last 24 Hours (Table) 11/14/18 11/15/18 11/15/18 Range/Units 17:25 07:08 07:08 RBC 2.82 L (4.30-5.90) m/uL Hgb 6.9 L* (13.0-17.5) gm/dL Hct 23.3 L (39.0-53.0) % MCH 24.6 L (25.0-35.0) pg MCHC 29.7 L (31.0-37.0) g/dL RDW 17.4 H (11.5-15.5) % Lymphocytes # (Manual) 0.80 L (1.0-4.8) k/uL Myelocytes # (Manual) 0.05 H (0) k/uL Sodium 135 L (137-145) mmol/L BUN 23 H (9-20) mg/dL POC Glucose (mg/dL) 206 H (75-99) mg/dL Calcium 7.8 L (8.4-10.2) mg/dL AST 365 H (17-59) U/L ALT 176 H (21-72) U/L Alkaline Phosphatase 605 H (38-126) U/L Total Protein 6.0 L (6.3-8.2) g/dL Albumin 2.3 L (3.5-5.0) g/dL 11/15/18 Range/Units 11:56 RBC (4.30-5.90) m/uL Hgb (13.0-17.5) gm/dL Hct (39.0-53.0) % MCH (25.0-35.0) pg MCHC (31.0-37.0) g/dL RDW (11.5-15.5) % Lymphocytes # (Manual) (1.0-4.8) k/uL Myelocytes # (Manual) (0) k/uL Sodium (137-145) mmol/L BUN (9-20) mg/dL POC Glucose (mg/dL) 105 H (75-99) mg/dL Calcium (8.4-10.2) mg/dL AST (17-59) U/L ALT (21-72) U/L Alkaline Phosphatase (38-126) U/L Total Protein (6.3-8.2) g/dL Albumin (3.5-5.0) g/dL Microbiology - Last 24 Hours (Table) 11/11/18 23:37 Blood Culture - Preliminary Blood No Growth after 72 hours 11/11/18 22:45 Blood Culture - Preliminary Blood No Growth after 72 hours 11/11/18 22:23 Urine Culture - Final Urine,Voided Enterococcus faecalis Assessment and Plan Assessment: Stage IV colorectal cancer Plan: No plans for acute surgical intervention right now. Diet as tolerated. Patient may eventually need a diverting procedure if he were to become obstructed.
[2018-11-15 17:17] LABS: Glucose,Whole Blood 112 mg/dL (75-99)
[2018-11-15] MEDS: MIRTAZAPINE 15 MG TAB PO SCH (17:37)
[2018-11-15] MEDS: [UNRECOGNIZED DRUG - REMARK] IV SCH ×8 (19:55)
[2018-11-16 00:09] LABS: Glucose,Whole Blood 159 mg/dL (75-99)
[2018-11-16] MEDS: AMPICILLIN-SULBACTAM 3 GM in SODIUM CHLORIDE 0.9% 100 ML IVPB SCH ×4 (00:14→17:12)
[2018-11-16] MEDS: INSULIN ASPART (NovoLOG) 100 UNIT/ML VIAL SQ SCH ×4 (00:15→18:22)
[2018-11-16] MEDS: oxyCODONE-APAP 10-325MG 1 EACH TAB PO PRN ×5 (00:15→20:12)
[2018-11-16] MEDS: PROCHLORPERAZINE 10 MG TAB PO SCH ×4 (04:51→21:29)
[2018-11-16] MEDS: [UNRECOGNIZED DRUG - REMARK] IV SCH ×16 (05:54→15:40)
[2018-11-16 06:22] LABS: Glucose,Whole Blood 98 mg/dL (75-99)
[2018-11-16 08:27] LABS: Anisocytosis Slight; Basophils % (A) 1 %; Eosinophils # (A) 0.2 k/uL (0-0.7); Eosinophils % (A) 5 %; HCT 25.5 % (39.0-53.0); HGB 7.7 gm/dL (13.0-17.5); Hypochromasia Marked; Lymphocytes # (A) 0.9 k/uL (1.0-4.8); Lymphocytes % (A) 18 %; MCH 25.6 pg (25.0-35.0); MCHC 30.2 g/dL (31.0-37.0); MCV 84.7 fL (80.0-100.0); Monocytes # (A) 0.4 k/uL (0-1.0); Monocytes % (A) 8 %; Neutrophils # (A) 3.3 k/uL (1.3-7.7); Neutrophils % (A) 68 %; Platelet Count 258 k/uL (150-450); Poikilocytosis Slight; RBC 3.01 m/uL (4.30-5.90); RDW 16.5 % (11.5-15.5); WBC 4.9 k/uL (3.8-10.6)
[2018-11-16 08:33] LABS: ALT 135 U/L (21-72); AST 154 U/L (17-59); Albumin 2.4 g/dL (3.5-5.0); Alkaline Phosphatase 532 U/L (38-126); Anion Gap 9 mmol/L; Blood Urea Nitrogen 21 mg/dL (9-20); Calcium 7.8 mg/dL (8.4-10.2); Carbon Dioxide 22 mmol/L (22-30); Chloride 106 mmol/L (98-107); Glucose 93 mg/dL (74-99); Magnesium 2.1 mg/dL (1.6-2.3); Phosphorus 3.3 mg/dL (2.5-4.5); Potassium 4.4 mmol/L (3.5-5.1); Sodium 137 mmol/L (137-145); Total Bilirubin 0.8 mg/dL (0.2-1.3); Total Protein 5.9 g/dL (6.3-8.2); Triglycerides 114 mg/dL (<150)
[2018-11-16] MEDS: HEPARIN SODIUM,PORCINE 5,000 UNIT/ML 1 ML VIAL SQ SCH (08:53)
[2018-11-16] MEDS: TAMSULOSIN 0.4 MG CAP.ER.24H PO SCH (08:53)
[2018-11-16] MEDS: GABAPENTIN 100 MG CAP PO SCH (08:53)
[2018-11-16] MEDS: FAT EMULSION 20% 250 ML IV SCH (08:53)
[2018-11-16] MEDS: MAG HYDROX/AL HYDROX/SIMETH 30 ML, LIDOCAINE VISCOUS 30 ML, diphenhydrAMINE ELIXIR 75 M... PO SCH ×12 (08:55→21:29)
--- NOTE | 2018-11-16 10:00 | P.PN ---
Progress Note - Text Progress Note Date: 11/16/18 The patient is tolerating a diet and bowel movements are back to baseline. If he develops recurrent nausea and vomiting, he will likely need a procedure to divert due to the pelvic mass with progression. Will followup as needed.
[2018-11-16 12:18] LABS: Glucose,Whole Blood 120 mg/dL (75-99)
--- NOTE | 2018-11-16 14:44 | P.PN ---
Subjective Progress Note Date: 11/16/18 This is a 57-year-old male patient of Dr. Dee with past medical history of stage III colon cancer, his been on chemotherapy he is also had metastasis to the spine. Patient is followed by Dr. Dang on a regular basis. Patient was recently discharged from 3 days ago from the hospital with abdominal pain and similar symptoms. Patient was sent home with homecare, he reports he had multiple episodes of vomiting and diarrhea and became increasingly weak. Chest x-ray showed atelectasis at the lateral left lung base that is cleared from previous exam, abdominal x-ray shows dilated bowel possible ileus that was unchanged from previous exam, and possible distal large bowel mechanical obstru ction. Labs show hemoglobin 9, WBC 14.5, sodium 134, BUN 60, creatinine 1.89. He is afebrile, heart rate running in the 90s, blood pressure 120/76, 94% on room air. Surgery and oncology have been consulted, will obtain blood cultures. Patient will be scheduled for barium enema tomorrow to rule out distal bowel obstruction from pelvic tumor mass, and she was placed without difficulty by Dr. Sebastian. This is a 57-year-old male patient of Dr. Dee with past medical history of stage III colon cancer, his been on chemotherapy he is also had metastasis to the spine. Patient is followed by Dr. Dang on a regular basis. Patient was recently discharged from 3 days ago from the hospital with abdominal pain and similar symptoms. Patient was sent home with homecare, he reports he had multiple episodes of vomiting and diarrhea and became increasingly weak. Chest x-ray showed atelectasis at the lateral left lung base that is cleared from previous exam, abdominal x-ray shows dilated bowel possible ileus that was unchanged from previous exam, and possible distal large bowel mechanical obstruction. Labs show hemoglobin 9, WBC 14.5, sodium 134, BUN 60, creatinine 1.89. He is afebrile, heart rate running in the 90s, blood pressure 120/76, 94% on room air. Surgery and oncology have been consulted, will obtain blood cultures. Patient will be scheduled for barium enema tomorrow to rule out distal bowel obstruction from pelvic tumor mass, and she was placed without difficulty by Dr. Sebastian. 11/09: The patient has been afebrile, heart rate running in the 80s and 90s, blood pressure 117/78, pulse ox 90% on room air. Sodium 140, potassium 3.9, chloride 108, CO2 23, BUN 27, creatinine 0.93. Patient had NG tube placed but after 3 hours he pulled this out. He had episode of confusion and hallucination after receiving Ativan during the NG tube placement. Patient had a sitter at the bedside for brief period and this was discontinued. Abdomen is less distended today. He is on TPN. He's been seen by Dr. Sebastian and underwent a barium enema this morning which revealed bowel narrowing within the pelvis consistent with patient's history of distal bowel obstruction. Surgical plans to be discussed with the patient and his . Discussed discharge planning and patient's is requesting placement at [facility] for subacute rehab at the time of discharge. Case management and social worker psychiatric following the patient. 11/10: Patient underwent sigmoidoscopy with biopsy today that found metastatic colon cancer, anastomotic narrowing with atypical mucosa. Dr. Sebastian has recom mended continuing TPN and she feels he is a surgical candidate. Eliquis has been placed on hold. Dr. Sebastian will discuss with Dr. Tariq. Biopsy is pending. Patient has been afebrile, heart rate in the 70s, blood pressure 112/66, pulse ox 96% on room air. Sodium 141, chloride 110, potassium 4.4, CO2 24, BUN 23, creatinine 0.95. Blood sugars running between 109 and 133. Albumin 2.6. 11/11: preparation room manager has discussed hospice option with the patient and he is currently waiting to discuss with his and does not want to make a decision. Dr. Sebastian has him scheduled for procedure this afternoon but patient is stating he is not going to undergo surgery. Patient is eating very little. He is still on TPN. Patient has been afebrile, heart rate running in the 70s to 100, blood pressure 103/70, pulse ox 100% on room air. Sodium 139, potassium 3.9, chloride 108, CO2 22, BUN 28 creatinine 0.95. Magnesium 1.5, total bilirubin 1.5, AST 37, ALT 24, alkaline phosphatase 255. 11/12: Patient is still waiting discussion regarding any surgical intervention with Dr. Sebastian. Patient is more lethargic today. He does open his eyes to verbal stimuli. Oral intake is poor. He is continued on TPN. He has been afebrile, heart rate in the 70s, blood pressure 95/57, pulse ox 99% on room air. White count is 9.5, hemoglobin 7.7, platelet count 212. Sodium 135, potassium 3.4, chloride 105, CO2 21, BUN 31 and creatinine 0.97. Blood sugars running between 99 and 147. Total bilirubin 2.4, AST 35, ALT 24, albumin 2.5, total protein 6.2. 11/13: Patient has been seen by Dr. Carter regarding fever up to 102. White count remains normal, hemoglobin 7.7, creatinine 1.01. Chest x-ray showed no acute cardiopulmonary process. Abdominal x-ray shows distended and dilated bowels with gas consistent with ileus or partial mechanical obstruction. No change compared to last exam. Ultrasound of the abdomen and pelvis reveals suboptimal study. No ascites evident. Severe right-sided hydronephrosis redemonstrated. New [id number] left-sided hydronephrosis suspected. Yesterday, patient was started on cefepime and vancomycin by oncology. Patient denies having any fever or chills today. He continues to have poor oral intake and is on TPN. He is not interested in taking any protein supplements including Ensure, [place] instant breakfast or Magic cups. Dietitian is attempting to supply a protein rich diet for him with limitations. Patient is only getting up to the bathroom rarely. He is mostly staying in bed. He complains of significant weakness. He denies having any pain with urination or increased frequency. He has Joyner catheter placed for retention. He has generalized abdominal pain which is been chronic. He denies suprapubic pain and flank pain. He states he is tolerating a diet and plan with Dr. Sebastian is to monitor tolerance of his diet over the weekend. Patient has verbalized to staff yesterday and the day before that he does not want to undergo surgery. Hospice has been addressed with the patient from oncology on this admission and previous admission and patient is declining. Revisited today and patient also states he is not ready for hospice and did not want hospice informational meeting. Clarified CODE STATUS which is no code. Urology consult has been added by Dr. Carter regarding a new left-sided hydronephrosis. Antibiotics changed to Unasyn. Patient ambulated in hallway today. 11/14: Patient was resting comfortably up in a chair. He is waiting for his to come with breakfast. Patient denies any abdominal discomfort nausea or vom iting. Patient is having bowel movements that are not diarrhea or bloody. He is tolerating his anticoagulant without any difficulties. Patient spoke with Dr. Tariq yesterday evening and has decided not to move forward with the CAT scan, surgery, or stent placement to bilateral kidneys. At this time he will continue to monitor his symptoms and see if he can tolerate food. 11/15: Patient has been afebrile, heart rate in the 70s, blood pressure 95/52. Patient is still receiving TPN he is also tolerating oral intake without any nausea or vomiting. Patient is continuing to have bowel movements with no diarrhea or bloody stool. At this time no surgical interventions will be completed. He does have indwelling catheter. 11/16: Patient states that he is eating about half of his meals. He denies having any vomiting. He's only had [address] Sebastian is following on an as-needed basis. Patient has met with Dr. Iverson and discussed self-catheterization as he feels this would be better tolerated. Patient can follow-up with Dr. Mcgrath next week. He is complaining of increasing left leg pain and gabapentin will be increased to 300 mg twice daily. Anticipate probable discharge in next 24 hours. Review of Systems Constitutional: Reports fatigue, Reports weakness, reports malaise, Denies chills, Denies fever Ears, nose, mouth and throat: Denies dysphagia, Denies headache, Denies hoarseness, Denies mouth pain, Denies nasal congestion, Denies nasal discharge, Denies post-nasal drip, Denies sore throat Cardiovascular: Denies chest pain, Denies edema, Denies high blood pressure, Denies leg edema, Denies orthopnea, Denies palpitations, Denies shortness of breath, Denies syncope Respiratory: Denies congestion, Denies cough, Denies dyspnea, Denies pain Gastrointestinal: Reports abdominal pain, reports less abdominal distention, denies diarrhea, denies loss of appetite, denies nausea, denies vomiting, reports bloating, Denies constipation, Denies dyspepsia, Denies hematemesis, reports anorexia. Genitourinary: Denies dysuria, Denies flank pain, Denies hematuria, Denies nocturia, Denies urinary frequency, Denies urinary retention Musculoskeletal: Reports muscle weakness, Denies atrophy, Denies frequent falls, Denies gait dysfunction, Denies leg numbness/tingling, Denies limitation of motion, Denies neck pain, Denies neck stiffness Neurological: Reports weakness, reports confusion, Denies gait dysfunction, Denies headaches, Denies memory loss, Denies numbness, Denies paralysis, Denies seizures, Denies syncope Objective - Vital Signs Vital signs: Vital Signs Temp 98.4 F 11/16/18 12:45 Pulse 80 11/16/18 12:45 Resp 16 11/16/18 12:45 BP 101/67 11/16/18 12:45 Pulse Ox 98 11/16/18 12:45 Intake & Output 11/15/18 11/16/18 11/16/18 18:59 06:59 18:59 Intake Total 510 Output Total 1000 750 Balance -1000 -240 Weight 75.6 kg 75.6 kg Intake: Oral 200 Blood Product 310 Rc As-1 Unit 310 [id number] Output: Urine 1000 750 Uretheral (Joyner) 750 Other: Voiding Method Indwelling Catheter Indwelling Catheter Indwelling Catheter - Exam Gen: This is a thin 58-year-old male. He is resting in chair and appears to be comfortable and in no acute distress. HEENT: Head is atraumatic, normocephalic. Pupils equal, round. Sclerae is a nicteric. Oral mucous membranes are moist. Lesions noted on the soft palate and tongue. NECK: Supple. No JVD. No lymphadenopathy. No thyromegaly. LUNGS: Clear to auscultation. No wheezes or rhonchi. No intercostal retractions. HEART: Regular rate and rhythm. No murmur. ABDOMEN: Slightly distended. Soft. Bowel sounds are present. No masses. No tenderness. EXTREMITIES: No pedal edema. No calf tenderness. Dorsalis pedis +1 bilaterally. NEUROLOGICAL: Patient is awake, alert and oriented x3. Cranial nerves 2 through 12 are grossly intact. - Labs CBC & Chem 7: 11/16/18 07:09 11/16/18 07:09 Labs: Abnormal Lab Results - Last 24 Hours (Table) 11/15/18 11/15/18 11/16/18 Range/Units 17:14 17:25 00:08 RBC (4.30-5.90) m/uL Hgb (13.0-17.5) gm/dL Hct (39.0-53.0) % MCHC (31.0-37.0) g/dL RDW (11.5-15.5) % Lymphocytes # (1.0-4.8) k/uL BUN (9-20) mg/dL POC Glucose (mg/dL) 112 H 159 H (75-99) mg/dL Calcium (8.4-10.2) mg/dL AST (17-59) U/L ALT (21-72) U/L Alkaline Phosphatase (38-126) U/L Total Protein (6.3-8.2) g/dL Albumin (3.5-5.0) g/dL Crossmatch See Detail 11/16/18 11/16/18 11/16/18 Range/Units 07:09 07:09 12:17 RBC 3.01 L (4.30-5.90) m/uL Hgb 7.7 L (13.0-17.5) gm/dL Hct 25.5 L (39.0-53.0) % MCHC 30.2 L (31.0-37.0) g/dL RDW 16.5 H (11.5-15.5) % Lymphocytes # 0.9 L (1.0-4.8) k/uL BUN 21 H (9-20) mg/dL POC Glucose (mg/dL) 120 H (75-99) mg/dL Calcium 7.8 L (8.4-10.2) mg/dL AST 154 H (17-59) U/L ALT 135 H (21-72) U/L Alkaline Phosphatase 532 H (38-126) U/L Total Protein 5.9 L (6.3-8.2) g/dL Albumin 2.4 L (3.5-5.0) g/dL Crossmatch Microbiology - Last 24 Hours (Table) 11/11/18 23:37 Blood Culture - Preliminary Blood No Growth after 96 hours 11/11/18 22:45 Blood Culture - Preliminary Blood No Growth after 96 hours Assessment and Plan Plan: 1. Acute abdominal pain: X-ray shows ileus with bowel narrowing. Consult with Dr. Sebastian appreciated. NG tube has been removed by the patient. Status post barium enema and sigmoidoscopy with biopsy. Continue on Zofran, Protonix and Compazine. No surgical intervention planned. Eliquis resumed. 2. Acute kidney injury: Secondary to dehydration, continue with IV fluids. 3. Severe dehydration: IV hydration 4. Colon cancer with metastasis: Has been on chemotherapy and sees oncology on regular basis, oncology on consult 5. History of DVT: Continue eliquis 2.5 mg twice a day. Patient has completed his course of therapy for DVT but patient's primary oncologist has recommended continuing eliquis due to cancer diagnosis. 6. Anemia: Secondary to chemotherapy and cancer, will monitor CBC. 7. Severe protein calorie malnutrition. Continue TPN. Dietitian is following. Plan is to try and increase oral intake and monitor. 8. Fever, probable urinary tract infection with urinary retention and bilateral hydronephrosis. Consult with Dr. Carter appreciated. Urine culture Group D enterococcus. Blood culture in progress. Antibiotics changed to Unasyn 9. Urinary retention requiring Joyner catheter placement. Flomax 0.4 mg daily added 8. GI prophylaxis. Protonix 40 mg daily 9. DVT prophylaxis. Eliquis will be resumed and discontinue Heparin subcu every 12 hours. CODE STATUS: Full code Discharge plan: Either home with [facility] or [facility] for subacute rehab. Patient declined hospice. Impression and plan of care have been directed as dictated by the signing physician. Brea Garcia nurse practitioner acting as scribe for signing physician.
--- NOTE | 2018-11-16 16:30 | P.PN ---
Subjective Progress Note Date: 11/16/18 Principal diagnosis: ileus, Hx metastatic colon adenocarcinoma In f/u today pt is tolerating small amounts of food and fluids, denies diarrhea or constipation at this time, his neuropathy is worse and gabapentin was adjusted per pt, he is afraid he will fall but, he is using walker and did walk the hallway today. No other c/o. Objective - Vital Signs Vital signs: Vital Signs Temp 98.4 F 11/16/18 12:45 Pulse 80 11/16/18 12:45 Resp 16 11/16/18 12:45 BP 101/67 11/16/18 12:45 Pulse Ox 98 11/16/18 12:45 Intake & Output 11/15/18 11/16/18 11/16/18 18:59 06:59 18:59 Intake Total 1565.8333 Output Total 1000 750 900 Balance -7472 098.9535 -900 Weight 75.6 kg 75.6 kg Intake: Intake, IV Titration 1055.8333 Amount Sodium Acetate 35 meq 1055.8333 Potassium Phosphate 10 mmol Mvi, Adult No.4 with Vit K 10 ml Trace (Conc- 1Ml/Dose) 1 ml Magnesium Sulfate gm 2 gm Potassium Chloride 20 meq Calcium Gluconate 1 gm In Amino Acid 5%-D15w 1,000 ml @ 100 mls/hr IV .BY DURATION [facility] Rx#: [id number] Oral 200 Blood Product 310 Rc As-1 Unit 310 [id number] Output: Urine 1000 750 900 Uretheral (Yadav) 750 900 Other: Voiding Method Indwelling Catheter Indwelling Catheter Indwelling Catheter - Constitutional General appearance: Present: cooperative, no acute distress, thin - EENT Eyes: Present: anicteric sclerae, EOMI ENT: Present: hearing grossly normal - Respiratory Respiratory: bilateral: CTA - Cardiovascular Rhythm: regular Heart sounds: normal: S1, S2 Abnormal Heart Sounds: Absent: systolic murmur, diastolic murmur, rub, S3 Gallop, S4 Gallop, click, other - Gastrointestinal General gastrointestinal: Present: distended, soft, tenderness - Neurologic Neurologic: Present: CNII-XII intact - Musculoskeletal Musculoskeletal: Present: generalized weakness, strength equal bilaterally - Psychiatric Psychiatric: Present: A&O x's 3, appropriate affect, intact judgment & insight - Labs CBC & Chem 7: 11/16/18 07:09 11/16/18 07:09 Labs: Abnormal Lab Results - Last 24 Hours (Table) 11/15/18 11/15/18 11/16/18 Range/Units 17:14 17:25 00:08 RBC (4.30-5.90) m/uL Hgb (13.0-17.5) gm/dL Hct (39.0-53.0) % MCHC (31.0-37.0) g/dL RDW (11.5-15.5) % Lymphocytes # (1.0-4.8) k/uL BUN (9-20) mg/dL POC Glucose (mg/dL) 112 H 159 H (75-99) mg/dL Calcium (8.4-10.2) mg/dL AST (17-59) U/L ALT (21-72) U/L Alkaline Phosphatase (38-126) U/L Total Protein (6.3-8.2) g/dL Albumin (3.5-5.0) g/dL Crossmatch See Detail 11/16/18 11/16/18 11/16/18 Range/Units 07:09 07:09 12:17 RBC 3.01 L (4.30-5.90) m/uL Hgb 7.7 L (13.0-17.5) gm/dL Hct 25.5 L (39.0-53.0) % MCHC 30.2 L (31.0-37.0) g/dL RDW 16.5 H (11.5-15.5) % Lymphocytes # 0.9 L (1.0-4.8) k/uL BUN 21 H (9-20) mg/dL POC Glucose (mg/dL) 120 H (75-99) mg/dL Calcium 7.8 L (8.4-10.2) mg/dL AST 154 H (17-59) U/L ALT 135 H (21-72) U/L Alkaline Phosphatase 532 H (38-126) U/L Total Protein 5.9 L (6.3-8.2) g/dL Albumin 2.4 L (3.5-5.0) g/dL Crossmatch Microbiology - Last 24 Hours (Table) 11/11/18 23:37 Blood Culture - Preliminary Blood No Growth after 96 hours 11/11/18 22:45 Blood Culture - Preliminary Blood No Growth after 96 hours - Imaging and Cardiology US - abdomen: report reviewed Assessment and Plan (1) Anastomotic stricture of colorectal region Narrative/Plan: Anastamosis biopsy was negative for malignancy-this was reviewed with pt Current Visit: Yes Status: Acute Priority: High Code(s): K91.30 - POSTPROC INTESTINAL OBST, UNSP TO PARTIAL VERSUS COMPLETE SNOMED Code(s): 951433277 (2) Ileus Narrative/Plan: Symptoms are improving with conservative mgmt Current Visit: Yes Status: Acute Priority: Medium Code(s): K56.7 - ILEUS, UNSPECIFIED SNOMED Code(s): 757119297 (3) Obstructive uropathy Narrative/Plan: Seen by Urology, felt to be bladder outflow obstruction, flomax initiated, yadav placed with improvement Current Visit: Yes Status: Acute Priority: High Code(s): N13.9 - OBSTRUCTIVE AND REFLUX UROPATHY, UNSPECIFIED SNOMED Code(s): 6689468 (4) Colon adenocarcinoma Narrative/Plan: Pt and have been resistant to discussions about malignancy so, plan is to schedule a PET scan for this Friday with f/u with Dr. Tariq early next week. No other interventions from Hem/Onc at this time Current Visit: Yes Status: Chronic Priority: High Code(s): C18.9 - MALIGNANT NEOPLASM OF COLON, UNSPECIFIED SNOMED Code(s): 185474001
[2018-11-16] MEDS: MIRTAZAPINE 15 MG TAB PO SCH (17:12)
[2018-11-16 17:53] LABS: Glucose,Whole Blood 113 mg/dL (75-99)
[2018-11-16] MEDS: APIXABAN 2.5 MG TABLET PO SCH (20:12)
[2018-11-16] MEDS: GABAPENTIN 300 MG CAP PO SCH (20:12)
[2018-11-16] MEDS: LACTATED RINGERS 1,000 ML IV SCH (20:13)
--- NOTE | 2018-11-16 22:48 | P.PN ---
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 December 2015 he was positive for DVT and he was started on eliquis. He underwent CT scan of abdomen/pelvis on 02/22/2016 which revealed 9.4x5.5cm mass in righ pelvis causing significant hydronephrosis. Cystoscopy and ureteral stent placement was attempted but stent could not be placed. On 02/27/2016, FNA of the pelvic mass was positive for adenocarcinoma consistent with colon primary. PET scan revealed very large right pelvic mass invading the sacrum with multiple lung lesions and hilar nodes. He had right nephrostomy tube placed at and he was also evaluated by oncology at on 03/14/2016 and recommended systemic therapy first. He completed 10 cycles of mFOLFOX. Repeat PET scan on 09/08/2016 revealed disease progression in his pelvis and he completed 11 cycles of FOLFIRI/Avastin on 02/26/2017 (he declined the last cycle). He started maintenance xeloda/avastin he ended up with bleeding in his kidney and retroperitoneal hemorrhage and treated at [facility]. Repeat PET scan in July 2017 revealed progression of his disease in the pelvis with chronic right hydronephrosis. He has been intermittently on Xeloda/Avastin. In August of this year, he started Avastin/FOLFIRI. He had a recent hospitalization for October 22 through November 03 for abdominal pain and diarrhea secondary to chemotherapy or enteritis and acute kidney injury with dehydration with complaints of generalized abdominal pain, lack of appetite and inability to keep food down. He was treated with TPN and started on Remeron and eventually discharged home. At home, he did not have a bowel movement for 2 days he was feeling increasing weakness and came back to the emergency center for evaluation. Abdominal x-ray showed dilated bowel possible ileus that was unchanged from previous exam with possible distal large bowel mechanical obstruction. Chest x-ray showed atelectasis in the lateral left lung base that is cleared from previous exam. He underwent a barium enema that showed bowel narrowing within the pelvis consistent with patient's history of distal bowel obstruction. Cystoscopy was done which showed metastatic colon cancer, anastomotic narrowing with atypical mucosa. Pathology was consistent with benign enteric mucosa consistent with coloenteric anastomosis. Patient was found to have temperature of 102.7 on November 11 on one reading and 101.6 on November 13. He underwent a chest x-ray that revealed no active cardiopulmonary disease. Abdominal x-ray shows distended and dilated bowels with gas consistent with ileus or partial mechanical obstruction. No change compared to last exam. Ultrasound of the abdomen and pelvis reveals suboptimal study. No ascites evident. Severe right-sided hydronephrosis redemonstrated. New [id number] left-sided hydronephrosis suspected. Influenza testing negative. Yesterday, patient was started on cefepime and vancomycin. Patient denies having any fever or chills today. He apparently is eating very little. He is not interested in taking any protein supplements including Ensure, [place] instant breakfast or Magic cups. Dietitian is attempting to supply a protein rich diet for him with limitations. Patient is only getting up to the bathroom rarely. He is mostly staying in bed. He complains of significant weakness. He denies having any pain with urination or increased frequency. He had Joyner catheter placed for retention. He has generalized abdominal pain which is been chronic. He denies suprapubic pain and flank pain. He states he is tolerating a diet and plan with Dr. Sebastian is to monitor tolerance of his diet over the weekend. Patient has verbalized to staff yesterday and the day before that he does not want to undergo surgery. Hospice has been addressed with the patient from oncology on this admission and previous admission and patient is declining. Revisited today and patient also states he is not ready for hospice and did not want hospice informational meeting. 11/16/2018 patient is starting to feel somewhat better, pain is problematic and radiating to the right lower extremity. Has been seen by urology without plans for intervention, it is thought that the urinary retention was resulting in the new right-sided hydronephrosis. They plan to follow in the outpatient setting. Tolerating antibiotic therapy well with the Unasyn for the enterococcus urinary tract infection. Objective - Vital Signs Vital signs: Vital Signs Temp 98.9 F 11/16/18 21:00 Pulse 91 11/16/18 21:00 Resp 18 11/16/18 21:00 BP 137/78 11/16/18 21:00 Pulse Ox 98 11/16/18 21:00 Intake & Output 11/16/18 11/16/18 11/17/18 06:59 18:59 06:59 Intake Total 1565.8333 Output Total 750 1700 Balance 815.8333 -1700 Weight 75.6 kg 75.6 kg Intake: Intake, IV Titration 1055.8333 Amount Sodium Acetate 35 meq 1055.8333 Potassium Phosphate 10 mmol Mvi, Adult No.4 with Vit K 10 ml Trace (Conc- 1Ml/Dose) 1 ml Magnesium Sulfate gm 2 gm Potassium Chloride 20 meq Calcium Gluconate 1 gm In Amino Acid 5%-D15w 1,000 ml @ 100 mls/hr IV .BY DURATION [facility] Rx#: [id number] Oral 200 Blood Product 310 Rc As-1 Unit 310 [id number] Output: Urine 750 1700 Uretheral (Joyner) 750 1700 Other: Voiding Method Indwelling Catheter Indwelling Catheter - Exam Gen: This is a thin 58-year-old male. He is resting in bed and appears to be comfortable and in no acute distress. HEENT: Head is atraumatic, normocephalic. Pupils equal, round. Sclerae is anicteric. Oral mucous membranes are moist. Lesions noted on the soft palate and tongue. NECK: Supple. No JVD. No lymphadenopathy. No thyromegaly. LUNGS: Clear to auscultation. No wheezes or rhonchi. No intercostal retractions. HEART: Regular rate and rhythm. No murmur. ABDOMEN: Slightly distended. Soft. Bowel sounds are present. No masses. No tenderness. Joyner with dark orange urine EXTREMITIES: No pedal edema. No calf tenderness. Dorsalis pedis +1 bilaterally. NEUROLOGICAL: Patient is awake, alert and oriented x3. - Labs CBC & Chem 7: 11/16/18 07:09 11/16/18 07:09 Labs: Abnormal Lab Results - Last 24 Hours (Table) 11/15/18 11/16/18 11/16/18 Range/Units 17:25 00:08 07:09 RBC 3.01 L (4.30-5.90) m/uL Hgb 7.7 L (13.0-17.5) gm/dL Hct 25.5 L (39.0-53.0) % MCHC 30.2 L (31.0-37.0) g/dL RDW 16.5 H (11.5-15.5) % Lymphocytes # 0.9 L (1.0-4.8) k/uL BUN (9-20) mg/dL POC Glucose (mg/dL) 159 H (75-99) mg/dL Calcium (8.4-10.2) mg/dL AST (17-59) U/L ALT (21-72) U/L Alkaline Phosphatase (38-126) U/L Total Protein (6.3-8.2) g/dL Albumin (3.5-5.0) g/dL Crossmatch See Detail 11/16/18 11/16/18 11/16/18 Range/Units 07:09 12:17 17:51 RBC (4.30-5.90) m/uL Hgb (13.0-17.5) gm/dL Hct (39.0-53.0) % MCHC (31.0-37.0) g/dL RDW (11.5-15.5) % Lymphocytes # (1.0-4.8) k/uL BUN 21 H (9-20) mg/dL POC Glucose (mg/dL) 120 H 113 H (75-99) mg/dL Calcium 7.8 L (8.4-10.2) mg/dL AST 154 H (17-59) U/L ALT 135 H (21-72) U/L Alkaline Phosphatase 532 H (38-126) U/L Total Protein 5.9 L (6.3-8.2) g/dL Albumin 2.4 L (3.5-5.0) g/dL Crossmatch Microbiology - Last 24 Hours (Table) 11/11/18 23:37 Blood Culture - Preliminary Blood No Growth after 96 hours 11/11/18 22:45 Blood Culture - Preliminary Blood No Growth after 96 hours Laboratory Results WBC 4.9 k/uL (3.8-10.6) 11/16/18 07:09 RBC 3.01 m/uL (4.30-5.90) L 11/16/18 07:09 Hgb 7.7 gm/dL (13.0-17.5) L 11/16/18 07:09 Hct 25.5 % (39.0-53.0) L 11/16/18 07:09 MCV 84.7 fL (80.0-100.0) 11/16/18 07:09 MCH 25.6 pg (25.0-35.0) 11/16/18 07:09 MCHC 30.2 g/dL (31.0-37.0) L 11/16/18 07:09 RDW 16.5 % (11.5-15.5) H 11/16/18 07:09 Plt Count 258 k/uL (150-450) 11/16/18 07:09 Neutrophils % 68 % 11/16/18 07:09 Neutrophils % (Manual) 67 % 11/15/18 07:08 Band Neutrophils % 1 % 11/15/18 07:08 Lymphocytes % 18 % 11/16/18 07:09 Lymphocytes % (Manual) 16 % 11/15/18 07:08 Monocytes % 8 % 11/16/18 07:09 Monocytes % (Manual) 13 % 11/15/18 07:08 Eosinophils % 5 % 11/16/18 07:09 Eosinophils % (Manual) 5 % 11/15/18 07:08 Basophils % 1 % 11/16/18 07:09 Myelocytes % 1 % 11/15/18 07:08 Neutrophils # 3.3 k/uL (1.3-7.7) 11/16/18 07:09 Neutrophils # (Manual) 3.40 k/uL (1.3-7.7) 11/15/18 07:08 Lymphocytes # 0.9 k/uL (1.0-4.8) L 11/16/18 07:09 Lymphocytes # (Manual) 0.80 k/uL (1.0-4.8) L 11/15/18 07:08 Monocytes # 0.4 k/uL (0-1.0) 11/16/18 07:09 Monocytes # (Manual) 0.65 k/uL (0-1.0) 11/15/18 07:08 Eosinophils # 0.2 k/uL (0-0.7) 11/16/18 07:09 Eosinophils # (Manual) 0.25 k/uL (0-0.7) 11/15/18 07:08 Basophils # 0.0 k/uL (0-0.2) 11/16/18 07:09 Myelocytes # (Manual) 0.05 k/uL (0) H 11/15/18 07:08 Nucleated RBCs 0 /100 WBC (0-0) 11/15/18 07:08 Manual Slide Review Performed 11/15/18 07:08 Hypochromasia Marked 11/16/18 07:09 Poikilocytosis Slight 11/16/18 07:09 Anisocytosis Slight 11/16/18 07:09 Microcytosis Slight 11/11/18 17:30 PT 11.8 sec (9.0-12.0) 11/11/18 17:30 INR 1.1 (<1.2) 11/11/18 17:30 APTT 30.0 sec (22.0-30.0) 11/11/18 17:30 Sodium 137 mmol/L (137-145) 11/16/18 07:09 Potassium 4.4 mmol/L (3.5-5.1) 11/16/18 07:09 Chloride 106 mmol/L (98-107) 11/16/18 07:09 Carbon Dioxide 22 mmol/L (22-30) 11/16/18 07:09 Anion Gap 9 mmol/L 11/16/18 07:09 BUN 21 mg/dL (9-20) H 11/16/18 07:09 Creatinine 0.76 mg/dL (0.66-1.25) 11/16/18 07:09 Est GFR (CKD-EPI)AfAm >90 (>60 ml/min/1.73 sqM) 11/16/18 07:09 Est GFR (CKD-EPI)NonAf >90 (>60 ml/min/1.73 sqM) 11/16/18 07:09 Glucose 93 mg/dL (74-99) 11/16/18 07:09 POC Glucose (mg/dL) 113 mg/dL (75-99) H 11/16/18 17:51 POC Glu Medical Manager ID Sam Hernández 11/16/18 17:51 Plasma Lactic Acid Ruel 1.2 mmol/L (0.7-2.0) 11/07/18 13:38 Calcium 7.8 mg/dL (8.4-10.2) L 11/16/18 07:09 Ionized Calcium Mario 5.0 mg/dL (4.5-5.3) 11/13/18 07:25 Phosphorus 3.3 mg/dL (2.5-4.5) 11/16/18 07:09 Magnesium 2.1 mg/dL (1.6-2.3) 11/16/18 07:09 Total Bilirubin 0.8 mg/dL (0.2-1.3) 11/16/18 07:09 AST 154 U/L (17-59) H 11/16/18 07:09 ALT 135 U/L (21-72) H 11/16/18 07:09 Alkaline Phosphatase 532 U/L (38-126) H 11/16/18 07:09 Troponin I <0.012 ng/mL (0.000-0.034) 11/07/18 13:38 Total Protein 5.9 g/dL (6.3-8.2) L 11/16/18 07:09 Albumin 2.4 g/dL (3.5-5.0) L 11/16/18 07:09 Triglycerides 114 mg/dL (<150) 11/16/18 07:09 Carcinoembryonic Ag 11.7 ng/mL (0.0-4.9) H 11/11/18 08:37 Urine Color Yellow 11/12/18 20:55 Urine Appearance Cloudy (Clear) 11/12/18 20:55 Urine pH 6.0 (5.0-8.0) 11/12/18 20:55 Ur Specific [place] 1.019 (1.001-1.035) 11/12/18 20:55 Urine Protein 1+ (Negative) H 11/12/18 20:55 Urine Glucose (UA) Negative (Negative) 11/12/18 20:55 Urine Ketones Negative (Negative) 11/12/18 20:55 Urine Blood Moderate (Negative) H 11/12/18 20:55 Urine Nitrite Negative (Negative) 11/12/18 20:55 Urine Bilirubin 1+ (Negative) H 11/12/18 20:55 Urine Urobilinogen <2.0 mg/dL (<2.0) 11/12/18 20:55 Ur Leukocyte Esterase Large (Negative) H 11/12/18 20:55 Urine RBC 5 /hpf (0-5) 11/12/18 20:55 Urine WBC 42 /hpf (0-5) H 11/12/18 20:55 Urine WBC Clumps Few /hpf (None) H 11/11/18 22:23 Ur Squamous Epith Cells 1 /hpf (0-4) 11/11/18 22:23 Amorphous Sediment Occasional /hpf (None) H 11/08/18 09:00 Urine Bacteria Rare /hpf (None) H 11/12/18 20:55 Urine Mucus Rare /hpf (None) H 11/12/18 20:55 Influenza Type A RNA Not Detected (Not Detectd) 11/12/18 19:05 Influenza Type B (PCR) Not Detected (Not Detectd) 11/12/18 19:05 Blood Type O Positive 11/15/18 17:25 Blood Type Confirm O Positive 11/11/18 17:30 Blood Type Reche Microbiology 11/11/18 23:37 Blood Blood Culture - Preliminary No Growth after 96 hours 11/11/18 22:45 Blood Blood Culture - Preliminary No Growth after 96 hours 11/11/18 22:23 Urine,Voided Urine Culture - Final Enterococcus faecalis 11/07/18 13:38 Blood Blood Culture - Final No Growth after 144 hours ck No 11/15/18 17:25 Antibody Screen NEGATIVE 11/15/18 17:25 Crossmatch See Detail 11/15/18 17:25 Spec Expiration Date 11/18/2018232411/15/18 17:25 Assessment and Plan (1) Primary colon cancer without distant metastasis (M0) Current Visit: Yes Status: Acute Code(s): C18.9 - MALIGNANT NEOPLASM OF COLON, UNSPECIFIED SNOMED Code(s): 66868626 (2) Anastomotic stricture of colorectal region Current Visit: Yes Status: Acute Priority: High Code(s): K91.30 - POSTPROC INTESTINAL OBST, UNSP TO PARTIAL VERSUS COMPLETE SNOMED Code(s): 285266340 (3) Enterococcus UTI Narrative/Plan: 58-year-old male who has the known history of adenocarcinoma of the sigmoid colon was been in hospital for several days and very poorly overall. He is now developed fevers up to 101.6 and felt quite poorly overall. He is receiving TPN with his obstructive problem. He also has a known history of the chronic right hydronephrosis that could not be stented per urology. No evidence concerns to new obstructions in the left ureter. The patient is noted feels very poorly overall this pain is better than it was when he first presented h ospital. Urine cultures become available and Enterococcus faecalis and consequently antibiotic therapy is now transitioned to ampicillin sulbactam 3 g IV piggyback every 6 hours for a pathogen which also give us coverage for any intra-abdominal pathology. 11/16/2018 patient is feeling slightly better in some ways but is having some flare of his pain to his right lower extremity is likely from tumor pressing on pelvic nerves. Patient remains on TPN and has seemed to have a good response to the antibiotic therapy of Unasyn for the enterococcal urinary tract infection. Would like to arrange 7 days of antibiotic therapy the time of his discharge in the next day with Unasyn. We'll work with the discharge planners to determine the possibility of this in the outpatient setting. Current Visit: Yes Status: Acute Code(s): N39.0 - URINARY TRACT INFECTION, SITE NOT SPECIFIED; B95.2 - ENTEROCOCCUS THE CAUSE OF DISEASES CLASSIFIED ELSEWHERE SNOMED Code(s): 141248978168523
[2018-11-17 00:13] LABS: Glucose,Whole Blood 125 mg/dL (75-99)
[2018-11-17] MEDS: AMPICILLIN-SULBACTAM 3 GM in SODIUM CHLORIDE 0.9% 100 ML IVPB SCH ×5 (00:15→23:00)
[2018-11-17] MEDS: oxyCODONE-APAP 10-325MG 1 EACH TAB PO PRN ×4 (00:15→22:59)
[2018-11-17] MEDS: INSULIN ASPART (NovoLOG) 100 UNIT/ML VIAL SQ SCH ×4 (00:22→17:31)
[2018-11-17] MEDS: [UNRECOGNIZED DRUG - REMARK] IV SCH ×16 (02:22→13:54)
[2018-11-17] MEDS: PROCHLORPERAZINE 10 MG TAB PO SCH ×4 (03:52→23:00)
[2018-11-17] MEDS: HYDROmorphone 0.5 MG/0.5 ML SYRINGE IVP PRN ×4 (05:06→17:32)
[2018-11-17 06:14] LABS: Glucose,Whole Blood 118 mg/dL (75-99)
[2018-11-17] MEDS: GABAPENTIN 300 MG CAP PO SCH ×2 (08:14→23:00)
[2018-11-17] MEDS: TAMSULOSIN 0.4 MG CAP.ER.24H PO SCH (08:14)
[2018-11-17] MEDS: APIXABAN 2.5 MG TABLET PO SCH ×2 (08:14→22:59)
[2018-11-17 08:16] LABS: ALT 118 U/L (21-72); AST 115 U/L (17-59); Albumin 2.6 g/dL (3.5-5.0); Alkaline Phosphatase 591 U/L (38-126); Anion Gap 10 mmol/L; Blood Urea Nitrogen 21 mg/dL (9-20); Calcium 7.9 mg/dL (8.4-10.2); Carbon Dioxide 20 mmol/L (22-30); Chloride 108 mmol/L (98-107); Glucose 98 mg/dL (74-99); Magnesium 2.1 mg/dL (1.6-2.3); Phosphorus 3.8 mg/dL (2.5-4.5); Potassium 4.4 mmol/L (3.5-5.1); Sodium 138 mmol/L (137-145); Total Bilirubin 0.8 mg/dL (0.2-1.3); Total Protein 6.4 g/dL (6.3-8.2)
[2018-11-17] MEDS: FAT EMULSION 20% 250 ML IV SCH (08:16)
[2018-11-17 08:29] LABS: Anisocytosis Slight; Basophils # (A) 0.1 k/uL (0-0.2); Basophils % (A) 1 %; Eosinophils # (A) 0.2 k/uL (0-0.7); Eosinophils % (A) 2 %; HGB 7.2 gm/dL (13.0-17.5); Hypochromasia Marked; Lymphocytes % (A) 11 %; MCH 22.5 pg (25.0-35.0); MCHC 26.7 g/dL (31.0-37.0); MCV 84.2 fL (80.0-100.0); Mean Platelet Volume 7.6; Monocytes # (A) 0.8 k/uL (0-1.0); Monocytes % (A) 9 %; Neutrophils # (A) 6.6 k/uL (1.3-7.7); Neutrophils % (A) 75 %; Platelet Count 289 k/uL (150-450); RBC 3.21 m/uL (4.30-5.90); RDW 17.6 % (11.5-15.5); WBC 8.9 k/uL (3.8-10.6)
[2018-11-17] MEDS: MAG HYDROX/AL HYDROX/SIMETH 30 ML, LIDOCAINE VISCOUS 30 ML, diphenhydrAMINE ELIXIR 75 M... PO SCH ×12 (11:16→23:03)
[2018-11-17 11:41] LABS: Glucose,Whole Blood 117 mg/dL (75-99)
--- NOTE | 2018-11-17 13:18 | P.PN ---
Subjective Progress Note Date: 11/17/18 This is a 57-year-old male patient of Dr. Dee with past medical history of stage III colon cancer, his been on chemotherapy he is also had metastasis to the spine. Patient is followed by Dr. Dang on a regular basis. Patient was recently discharged from 3 days ago from the hospital with abdominal pain and similar symptoms. Patient was sent home with homecare, he reports he had multiple episodes of vomiting and diarrhea and became increasingly weak. Chest x-ray showed atelectasis at the lateral left lung base that is cleared from previous exam, abdominal x-ray shows dilated bowel possible ileus that was unchanged from previous exam, and possible distal large bowel mechanical obstru ction. Labs show hemoglobin 9, WBC 14.5, sodium 134, BUN 60, creatinine 1.89. He is afebrile, heart rate running in the 90s, blood pressure 120/76, 94% on room air. Surgery and oncology have been consulted, will obtain blood cultures. Patient will be scheduled for barium enema tomorrow to rule out distal bowel obstruction from pelvic tumor mass, and she was placed without difficulty by Dr. Sebastian. This is a 57-year-old male patient of Dr. Dee with past medical history of stage III colon cancer, his been on chemotherapy he is also had metastasis to the spine. Patient is followed by Dr. Dang on a regular basis. Patient was recently discharged from 3 days ago from the hospital with abdominal pain and similar symptoms. Patient was sent home with homecare, he reports he had multiple episodes of vomiting and diarrhea and became increasingly weak. Chest x-ray showed atelectasis at the lateral left lung base that is cleared from previous exam, abdominal x-ray shows dilated bowel possible ileus that was unchanged from previous exam, and possible distal large bowel mechanical obstruction. Labs show hemoglobin 9, WBC 14.5, sodium 134, BUN 60, creatinine 1.89. He is afebrile, heart rate running in the 90s, blood pressure 120/76, 94% on room air. Surgery and oncology have been consulted, will obtain blood cultures. Patient will be scheduled for barium enema tomorrow to rule out distal bowel obstruction from pelvic tumor mass, and she was placed without difficulty by Dr. Sebastian. 11/09: The patient has been afebrile, heart rate running in the 80s and 90s, blood pressure 117/78, pulse ox 90% on room air. Sodium 140, potassium 3.9, chloride 108, CO2 23, BUN 27, creatinine 0.93. Patient had NG tube placed but after 3 hours he pulled this out. He had episode of confusion and hallucination after receiving Ativan during the NG tube placement. Patient had a sitter at the bedside for brief period and this was discontinued. Abdomen is less distended today. He is on TPN. He's been seen by Dr. Sebastian and underwent a barium enema this morning which revealed bowel narrowing within the pelvis consistent with patient's history of distal bowel obstruction. Surgical plans to be discussed with the patient and his . Discussed discharge planning and patient's is requesting placement at [facility] for subacute rehab at the time of discharge. Case management and social service agency director following the patient. 11/10: Patient underwent sigmoidoscopy with biopsy today that found metastatic colon cancer, anastomotic narrowing with atypical mucosa. Dr. Sebastian has recom mended continuing TPN and she feels he is a surgical candidate. Eliquis has been placed on hold. Dr. Sebastian will discuss with Dr. Tariq. Biopsy is pending. Patient has been afebrile, heart rate in the 70s, blood pressure 112/66, pulse ox 96% on room air. Sodium 141, chloride 110, potassium 4.4, CO2 24, BUN 23, creatinine 0.95. Blood sugars running between 109 and 133. Albumin 2.6. 11/11: business system manager has discussed hospice option with the patient and he is currently waiting to discuss with his and does not want to make a decision. Dr. Sebastian has him scheduled for procedure this afternoon but patient is stating he is not going to undergo surgery. Patient is eating very little. He is still on TPN. Patient has been afebrile, heart rate running in the 70s to 100, blood pressure 103/70, pulse ox 100% on room air. Sodium 139, potassium 3.9, chloride 108, CO2 22, BUN 28 creatinine 0.95. Magnesium 1.5, total bilirubin 1.5, AST 37, ALT 24, alkaline phosphatase 255. 11/12: Patient is still waiting discussion regarding any surgical intervention with Dr. Sebastian. Patient is more lethargic today. He does open his eyes to verbal stimuli. Oral intake is poor. He is continued on TPN. He has been afebrile, heart rate in the 70s, blood pressure 95/57, pulse ox 99% on room air. White count is 9.5, hemoglobin 7.7, platelet count 212. Sodium 135, potassium 3.4, chloride 105, CO2 21, BUN 31 and creatinine 0.97. Blood sugars running between 99 and 147. Total bilirubin 2.4, AST 35, ALT 24, albumin 2.5, total protein 6.2. 11/13: Patient has been seen by Dr. Carter regarding fever up to 102. White count remains normal, hemoglobin 7.7, creatinine 1.01. Chest x-ray showed no acute cardiopulmonary process. Abdominal x-ray shows distended and dilated bowels with gas consistent with ileus or partial mechanical obstruction. No change compared to last exam. Ultrasound of the abdomen and pelvis reveals suboptimal study. No ascites evident. Severe right-sided hydronephrosis redemonstrated. New [id number] left-sided hydronephrosis suspected. Yesterday, patient was started on cefepime and vancomycin by oncology. Patient denies having any fever or chills today. He continues to have poor oral intake and is on TPN. He is not interested in taking any protein supplements including Ensure, Lafe instant breakfast or Magic cups. Dietitian is attempting to supply a protein rich diet for him with limitations. Patient is only getting up to the bathroom rarely. He is mostly staying in bed. He complains of significant weakness. He denies having any pain with urination or increased frequency. He has Joyner catheter placed for retention. He has generalized abdominal pain which is been chronic. He denies suprapubic pain and flank pain. He states he is tolerating a diet and plan with Dr. Sebastian is to monitor tolerance of his diet over the weekend. Patient has verbalized to staff yesterday and the day before that he does not want to undergo surgery. Hospice has been addressed with the patient from oncology on this admission and previous admission and patient is declining. Revisited today and patient also states he is not ready for hospice and did not want hospice informational meeting. Clarified CODE STATUS which is no code. Urology consult has been added by Dr. Carter regarding a new left-sided hydronephrosis. Antibiotics changed to Unasyn. Patient ambulated in hallway today. 11/14: Patient was resting comfortably up in a chair. He is waiting for his to come with breakfast. Patient denies any abdominal discomfort nausea or vom iting. Patient is having bowel movements that are not diarrhea or bloody. He is tolerating his anticoagulant without any difficulties. Patient spoke with Dr. Tariq yesterday evening and has decided not to move forward with the CAT scan, surgery, or stent placement to bilateral kidneys. At this time he will continue to monitor his symptoms and see if he can tolerate food. 11/15: Patient has been afebrile, heart rate in the 70s, blood pressure 95/52. Patient is still receiving TPN he is also tolerating oral intake without any nausea or vomiting. Patient is continuing to have bowel movements with no diarrhea or bloody stool. At this time no surgical interventions will be completed. He does have indwelling catheter. 11/16: Patient states that he is eating about half of his meals. He denies having any vomiting. He's only had [address] Sebastian is following on an as-needed basis. Patient has met with Dr. Iverson and discussed self-catheterization as he feels this would be better tolerated. Patient can follow-up with Dr. Mcgrath next week. He is complaining of increasing left leg pain and gabapentin will be increased to 300 mg twice daily. Anticipate probable discharge in next 24 hours. 11/16: Patient is tolerating diet but eating very little. He remains on TPN. Patient denies having diarrhea or constipation. Joyner cath remains in place which we will plan to discharge him with a Joyner in place and follow up with Dr. Mcgrath as an outpatient. Patient is ambulating well with physical therapy but becomes fatigued early. He does plan to return home with his . She will be working until so discharge is planned for . Dr. Carter has clarified IV antibiotics with Unasyn for 7 days. Patient has a port in place which will be utilized. Oncology has scheduled him for a PET scan on Friday and follow-up with Dr. Tariq next week. Review of Systems Constitutional: Reports fatigue, Reports weakness, reports malaise, Denies chills, Denies fever Ears, nose, mouth and throat: Denies dysphagia, Denies headache, Denies hoarseness, Denies mouth pain, Denies nasal congestion, Denies nasal discharge, Denies post-nasal drip, Denies sore throat Cardiovascular: Denies chest pain, Denies edema, Denies high blood pressure, Denies leg edema, Denies orthopnea, Denies palpitations, Denies shortness of breath, Denies syncope Respiratory: Denies congestion, Denies cough, Denies dyspnea, Denies pain Gastrointestinal: Reports abdominal pain, denies diarrhea, reports loss of appetite, denies nausea, denies vomiting, Denies constipation, Denies dyspepsia, Denies hematemesis, reports anorexia. Genitourinary: Denies dysuria, Denies flank pain, Denies hematuria, Denies nocturia, Denies urinary frequency, Denies urinary retention Musculoskeletal: Reports muscle weakness, Denies atrophy, Denies frequent falls, Denies gait dysfunction, Denies leg numbness/tingling, Denies limitation of motion, Denies neck pain, Denies neck stiffness Neurological: Reports weakness, reports confusion, Denies gait dysfunction, Denies headaches, Denies memory loss, Denies numbness, Denies paralysis, Denies seizures, Denies syncope Objective - Vital Signs Vital signs: Vital Signs Temp 99.8 F H 11/17/18 04:38 Pulse 80 11/17/18 08:00 Resp 18 11/17/18 08:00 BP 116/75 11/17/18 04:38 Pulse Ox 94 L 11/17/18 04:38 Intake & Output 11/16/18 11/17/18 11/17/18 18:59 06:59 18:59 Intake Total 1025.3333 200 Output Total 1699 2199 1600 Balance -674.6667 -1999 Weight 75.6 kg Intake: Intake, IV Titration 1025.3333 Amount Sodium Acetate 30 meq 1025.3333 Potassium Phosphate 10 mmol Magnesium Sulfate gm 1 gm Calcium Gluconate 0 .5 gm In Amino Acid 5%- D15w 1,000 ml @ 100 mls/ hr IV .BY DURATION [facility] Rx #:[id number] Oral 200 Output: Urine 1700 0 1600 Uretheral (Joyner) 1700 2200 600 Other: Voiding Method Indwelling Catheter Indwelling Catheter Indwelling Catheter - Exam Gen: This is a thin 58-year-old male. He is resting in bed and appears to be comfortable and in no acute distress. HEENT: Head is atraumatic, normocephalic. Pupils equal, round. Sclerae is anicteric. Oral mucous membranes are moist. Lesions noted on the soft palate and tongue. NECK: Supple. No JVD. No lymphadenopathy. No thyromegaly. LUNGS: Clear to auscultation. No wheezes or rhonchi. No intercostal retractions. HEART: Regular rate and rhythm. No murmur. ABDOMEN: Slightly distended. Soft. Bowel sounds are present. No masses. No tenderness. Joyner catheter draining clear carolyn urine. EXTREMITIES: No pedal edema. No calf tenderness. Dorsalis pedis +1 bilaterally. NEUROLOGICAL: Patient is awake, alert and oriented x3. Cranial nerves 2 through 12 are grossly intact. - Labs CBC & Chem 7: 11/17/18 07:18 11/17/18 07:18 Labs: Abnormal Lab Results - Last 24 Hours (Table) 11/16/18 11/17/18 11/17/18 Range/Units 17:51 00:12 06:13 RBC (4.30-5.90) m/uL Hgb (13.0-17.5) gm/dL Hct (39.0-53.0) % MCH (25.0-35.0) pg MCHC (31.0-37.0) g/dL RDW (11.5-15.5) % Chloride (98-107) mmol/L Carbon Dioxide (22-30) mmol/L BUN (9-20) mg/dL POC Glucose (mg/dL) 113 H 125 H 118 H (75-99) mg/dL Calcium (8.4-10.2) mg/dL AST (17-59) U/L ALT (21-72) U/L Alkaline Phosphatase (38-126) U/L Albumin (3.5-5.0) g/dL 11/17/18 11/17/18 11/17/18 Range/Units 07:18 07:18 11:35 RBC 3.21 L (4.30-5.90) m/uL Hgb 7.2 L (13.0-17.5) gm/dL Hct 27.0 L (39.0-53.0) % MCH 22.5 L (25.0-35.0) pg MCHC 26.7 L (31.0-37.0) g/dL RDW 17.6 H (11.5-15.5) % Chloride 108 H (98-107) mmol/L Carbon Dioxide 20 L (22-30) mmol/L BUN 21 H (9-20) mg/dL POC Glucose (mg/dL) 117 H (75-99) mg/dL Calcium 7.9 L (8.4-10.2) mg/dL AST 115 H (17-59) U/L ALT 118 H (21-72) U/L Alkaline Phosphatase 591 H (38-126) U/L Albumin 2.6 L (3.5-5.0) g/dL Microbiology - Last 24 Hours (Table) 11/11/18 23:37 Blood Culture - Preliminary Blood No Growth after 120 hours 11/11/18 22:45 Blood Culture - Preliminary Blood No Growth after 120 hours Assessment and Plan Plan: 1. Acute abdominal pain: X-ray shows ileus with bowel narrowing. Consult with Dr. Sebastian appreciated. NG tube has been removed by the patient. Status post barium enema and sigmoidoscopy with biopsy. Continue on Zofran, Protonix and Compazine. No surgical intervention planned. Eliquis resumed. TPN to continue. 2. Acute kidney injury: Secondary to dehydration, continue with IV fluids. 3. Severe dehydration: IV hydration 4. Colon cancer with metastasis: Has been on chemotherapy and sees oncology on regular basis, oncology on consult 5. History of DVT: Continue eliquis 2.5 mg twice a day. Patient has completed his course of therapy for DVT but patient's primary oncologist has recommended continuing eliquis due to cancer diagnosis. 6. Anemia: Secondary to chemotherapy and cancer, will monitor CBC. 7. Severe protein calorie malnutrition. Continue TPN. Dietitian is following. Plan is to try and increase oral intake and monitor. 8. Fever, probable urinary tract infection with urinary retention and bilateral hydronephrosis. Consult with Dr. Carter appreciated. Urine culture Group D enterococcus. Blood culture in progress. Antibiotics changed to Unasyn 9. Urinary retention requiring Joyner catheter placement. Flomax 0.4 mg daily added 8. GI prophylaxis. Protonix 40 mg daily 9. DVT prophylaxis. Eliquis will be resumed and discontinue Heparin subcu every 12 hours. CODE STATUS: Full code Discharge plan: home with [facility] on Impression and plan of care have been directed as dictated by the signing physician. Brea Garcia nurse practitioner acting as scribe for signing physician.
--- NOTE | 2018-11-17 16:21 | P.PN ---
Subjective Progress Note Date: 11/17/18 Principal diagnosis: ileus, Hx metastatic colon adenocarcinoma In follow-up today patient has no specific complaints. He does have early satiety, mild to moderate abdominal discomfort, he has had 2 loose stools this a.m., states they are of normal consistency, denies bleeding, he requires standby assist for ambulating with assistive device, he is on TPN. Objective - Vital Signs Vital signs: Vital Signs Temp 100.6 F H 11/17/18 11:45 Pulse 104 H 11/17/18 11:45 Resp 18 11/17/18 11:45 BP 108/69 11/17/18 11:45 Pulse Ox 97 11/17/18 11:45 Intake & Output 11/16/18 11/17/18 11/17/18 18:59 06:59 18:59 Intake Total 1025.3333 1255.8333 Output Total 1700 2200 1600 Balance -674.6667 -944.1667 -1600 Weight 75.6 kg Intake: Intake, IV Titration 1025.3333 1055.8333 Amount Sodium Acetate 30 meq 1025.3333 Potassium Phosphate 10 mmol Magnesium Sulfate gm 1 gm Calcium Gluconate 0 .5 gm In Amino Acid 5%- D15w 1,000 ml @ 100 mls/ hr IV .BY DURATION [facility] Rx #:[id number] Sodium Acetate 35 meq 1055.8333 Potassium Phosphate 10 mmol Mvi, Adult No.4 with Vit K 10 ml Trace (Conc- 1Ml/Dose) 1 ml Magnesium Sulfate gm 2 gm Potassium Chloride 20 meq Calcium Gluconate 1 gm In Amino Acid 5%-D15w 1,000 ml @ 100 mls/hr IV .BY DURATION [facility] Rx#: [id number] Oral 200 Output: Urine 1700 2200 1600 Uretheral (Yadav) 1700 2200 600 Other: Voiding Method Indwelling Catheter Indwelling Catheter Indwelling Catheter - Constitutional General appearance: Present: cooperative, no acute distress, thin - EENT Eyes: Present: anicteric sclerae, EOMI ENT: Present: hearing grossly normal, normal oropharynx - Respiratory Respiratory: bilateral: CTA - Cardiovascular Heart sounds: normal: S1, S2 Abnormal Heart Sounds: Absent: systolic murmur, diastolic murmur, rub, S3 Gallop, S4 Gallop, click, other - Peripheral edema leg Peripheral Edema: bilateral: None - Gastrointestinal General gastrointestinal: Present: distended, soft, tenderness - Integumentary Integumentary: Present: pale - Neurologic Neurologic: Present: CNII-XII intact - Musculoskeletal Musculoskeletal: Present: generalized weakness - Psychiatric Psychiatric: Present: A&O x's 3, appropriate affect, intact judgment & insight - Labs CBC & Chem 7: 11/17/18 07:18 11/17/18 07:18 Labs: Abnormal Lab Results - Last 24 Hours (Table) 11/16/18 11/17/18 11/17/18 Range/Units 17:51 00:12 06:13 RBC (4.30-5.90) m/uL Hgb (13.0-17.5) gm/dL Hct (39.0-53.0) % MCH (25.0-35.0) pg MCHC (31.0-37.0) g/dL RDW (11.5-15.5) % Chloride (98-107) mmol/L Carbon Dioxide (22-30) mmol/L BUN (9-20) mg/dL POC Glucose (mg/dL) 113 H 125 H 118 H (75-99) mg/dL Calcium (8.4-10.2) mg/dL AST (17-59) U/L ALT (21-72) U/L Alkaline Phosphatase (38-126) U/L Albumin (3.5-5.0) g/dL 11/17/18 11/17/18 11/17/18 Range/Units 07:18 07:18 11:35 RBC 3.21 L (4.30-5.90) m/uL Hgb 7.2 L (13.0-17.5) gm/dL Hct 27.0 L (39.0-53.0) % MCH 22.5 L (25.0-35.0) pg MCHC 26.7 L (31.0-37.0) g/dL RDW 17.6 H (11.5-15.5) % Chloride 108 H (98-107) mmol/L Carbon Dioxide 20 L (22-30) mmol/L BUN 21 H (9-20) mg/dL POC Glucose (mg/dL) 117 H (75-99) mg/dL Calcium 7.9 L (8.4-10.2) mg/dL AST 115 H (17-59) U/L ALT 118 H (21-72) U/L Alkaline Phosphatase 591 H (38-126) U/L Albumin 2.6 L (3.5-5.0) g/dL Microbiology - Last 24 Hours (Table) 11/11/18 23:37 Blood Culture - Preliminary Blood No Growth after 120 hours 11/11/18 22:45 Blood Culture - Preliminary Blood No Growth after 120 hours Assessment and Plan (1) Anastomotic stricture of colorectal region Narrative/Plan: Anastamosis biopsy was negative for malignancy. Current Visit: Yes Status: Acute Priority: High Code(s): K91.30 - POSTPROC INTESTINAL OBST, UNSP TO PARTIAL VERSUS COMPLETE SNOMED Code(s): 207413780 (2) Ileus Narrative/Plan: Recurrent, improved, patient states bowel movements, he is on TPN for additional nutritional support due to poor oral intake Current Visit: Yes Status: Acute Priority: Medium Code(s): K56.7 - ILEUS, UNSPECIFIED SNOMED Code(s): 381341996 (3) Obstructive uropathy Narrative/Plan: Seen by Urology, felt to be bladder outflow obstruction, flomax initiated, yadav placed,good urine output. Current Visit: Yes Status: Acute Priority: High Code(s): N13.9 - OBSTRUCTIVE AND REFLUX UROPATHY, UNSPECIFIED SNOMED Code(s): 7316732 (4) Colon adenocarcinoma Narrative/Plan: PET scan being scheduled for this Friday with f/u with Dr. Chandni layne next week. No other interventions from Hem/Onc at this time Current Visit: Yes Status: Chronic Priority: High Code(s): C18.9 - MALIGNANT NEOPLASM OF COLON, UNSPECIFIED SNOMED Code(s): 175436747
--- NOTE | 2018-11-17 16:39 | P.PN ---
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 December 2015 he was positive for DVT and he was started on eliquis. He underwent CT scan of abdomen/pelvis on 02/22/2016 which revealed 9.4x5.5cm mass in righ pelvis causing significant hydronephrosis. Cystoscopy and ureteral stent placement was attempted but stent could not be placed. On 02/27/2016, FNA of the pelvic mass was positive for adenocarcinoma consistent with colon primary. PET scan revealed very large right pelvic mass invading the sacrum with multiple lung lesions and hilar nodes. He had right nephrostomy tube placed at and he was also evaluated by oncology at on 03/14/2016 and recommended systemic therapy first. He completed 10 cycles of mFOLFOX. Repeat PET scan on 09/08/2016 revealed disease progression in his pelvis and he completed 11 cycles of FOLFIRI/Avastin on 02/26/2017 (he declined the last cycle). He started maintenance xeloda/avastin he ended up with bleeding in his kidney and retroperitoneal hemorrhage and treated at [facility]. Repeat PET scan in July 2017 revealed progression of his disease in the pelvis with chronic right hydronephrosis. He has been intermittently on Xeloda/Avastin. In August of this year, he started Avastin/FOLFIRI. He had a recent hospitalization for October 22 through November 03 for abdominal pain and diarrhea secondary to chemotherapy or enteritis and acute kidney injury with dehydration with complaints of generalized abdominal pain, lack of appetite and inability to keep food down. He was treated with TPN and started on Remeron and eventually discharged home. At home, he did not have a bowel movement for 2 days he was feeling increasing weakness and came back to the emergency center for evaluation. Abdominal x-ray showed dilated bowel possible ileus that was unchanged from previous exam with possible distal large bowel mechanical obstruction. Chest x-ray showed atelectasis in the lateral left lung base that is cleared from previous exam. He underwent a barium enema that showed bowel narrowing within the pelvis consistent with patient's history of distal bowel obstruction. Cystoscopy was done which showed metastatic colon cancer, anastomotic narrowing with atypical mucosa. Pathology was consistent with benign enteric mucosa consistent with coloenteric anastomosis. Patient was found to have temperature of 102.7 on November 11 on one reading and 101.6 on November 13. He underwent a chest x-ray that revealed no active cardiopulmonary disease. Abdominal x-ray shows distended and dilated bowels with gas consistent with ileus or partial mechanical obstruction. No change compared to last exam. Ultrasound of the abdomen and pelvis reveals suboptimal study. No ascites evident. Severe right-sided hydronephrosis redemonstrated. New [id number] left-sided hydronephrosis suspected. Influenza testing negative. Yesterday, patient was started on cefepime and vancomycin. Patient denies having any fever or chills today. He apparently is eating very little. He is not interested in taking any protein supplements including Ensure, [place] instant breakfast or Magic cups. Dietitian is attempting to supply a protein rich diet for him with limitations. Patient is only getting up to the bathroom rarely. He is mostly staying in bed. He complains of significant weakness. He denies having any pain with urination or increased frequency. He had Joyner catheter placed for retention. He has generalized abdominal pain which is been chronic. He denies suprapubic pain and flank pain. He states he is tolerating a diet and plan with Dr. Sebastian is to monitor tolerance of his diet over the weekend. Patient has verbalized to staff yesterday and the day before that he does not want to undergo surgery. Hospice has been addressed with the patient from oncology on this admission and previous admission and patient is declining. Revisited today and patient also states he is not ready for hospice and did not want hospice informational meeting. 11/16/2018 patient is starting to feel somewhat better, pain is problematic and radiating to the right lower extremity. Has been seen by urology without plans for intervention, it is thought that the urinary retention was resulting in the new right-sided hydronephrosis. They plan to follow in the outpatient setting. Tolerating antibiotic therapy well with the Unasyn for the enterococcus urinary tract infection. 11/17/2018 patient is feeling slightly better today. The pain to the right leg, likely related to tumor mass in the pelvis seems to be slightly improved today. He is not having further fevers or chills. However is having difficulty with ambulation and ongoing weakness. Objective - Vital Signs Vital signs: Vital Signs Temp 100.6 F H 11/17/18 11:45 Pulse 104 H 11/17/18 11:45 Resp 18 11/17/18 11:45 BP 108/69 11/17/18 11:45 Pulse Ox 97 11/17/18 11:45 Intake & Output 11/16/18 11/17/18 11/17/18 18:59 06:59 18:59 Intake Total 1025.3333 1255.8333 Output Total 1700 2200 1600 Balance -674.6667 -944.1667 -1600 Weight 75.6 kg Intake: Intake, IV Titration 1025.3333 1055.8333 Amount Sodium Acetate 30 meq 1025.3333 Potassium Phosphate 10 mmol Magnesium Sulfate gm 1 gm Calcium Gluconate 0 .5 gm In Amino Acid 5%- D15w 1,000 ml @ 100 mls/ hr IV .BY DURATION MOON Rx #:[id number] Sodium Acetate 35 meq 1055.8333 Potassium Phosphate 10 mmol Mvi, Adult No.4 with Vit K 10 ml Trace (Conc- 1Ml/Dose) 1 ml Magnesium Sulfate gm 2 gm Potassium Chloride 20 meq Calcium Gluconate 1 gm In Amino Acid 5%-D15w 1,000 ml @ 100 mls/hr IV .BY DURATION MOON Rx#: [id number] Oral 200 Output: Urine 1700 2200 1600 Uretheral (Joyenr) 1700 2200 600 Other: Voiding Method Indwelling Catheter Indwelling Catheter Indwelling Catheter - Exam Gen: This is a thin 58-year-old male. He is resting in bed and appears to be comfortable and in no acute distress. HEENT: Head is atraumatic, normocephalic. Pupils equal, round. Sclerae is anicteric. Oral mucous membranes are moist. Lesions noted on the soft palate and tongue. NECK: Supple. No JVD. No lymphadenopathy. No thyromegaly. LUNGS: Clear to auscultation. No wheezes or rhonchi. No intercostal retraction s. HEART: Regular rate and rhythm. No murmur. ABDOMEN: Slightly distended. Soft. Bowel sounds are present. No masses. No tenderness. Joyner with dark orange urine EXTREMITIES: No pedal edema. No calf tenderness. Dorsalis pedis +1 bilaterally. NEUROLOGICAL: Patient is awake, alert and oriented x3. - Labs CBC & Chem 7: 11/17/18 07:18 11/17/18 07:18 Labs: Abnormal Lab Results - Last 24 Hours (Table) 11/16/18 11/17/18 11/17/18 Range/Units 17:51 00:12 06:13 RBC (4.30-5.90) m/uL Hgb (13.0-17.5) gm/dL Hct (39.0-53.0) % MCH (25.0-35.0) pg MCHC (31.0-37.0) g/dL RDW (11.5-15.5) % Chloride (98-107) mmol/L Carbon Dioxide (22-30) mmol/L BUN (9-20) mg/dL POC Glucose (mg/dL) 113 H 125 H 118 H (75-99) mg/dL Calcium (8.4-10.2) mg/dL AST (17-59) U/L ALT (21-72) U/L Alkaline Phosphatase (38-126) U/L Albumin (3.5-5.0) g/dL 11/17/18 11/17/18 11/17/18 Range/Units 07:18 07:18 11:35 RBC 3.21 L (4.30-5.90) m/uL Hgb 7.2 L (13.0-17.5) gm/dL Hct 27.0 L (39.0-53.0) % MCH 22.5 L (25.0-35.0) pg MCHC 26.7 L (31.0-37.0) g/dL RDW 17.6 H (11.5-15.5) % Chloride 108 H (98-107) mmol/L Carbon Dioxide 20 L (22-30) mmol/L BUN 21 H (9-20) mg/dL POC Glucose (mg/dL) 117 H (75-99) mg/dL Calcium 7.9 L (8.4-10.2) mg/dL AST 115 H (17-59) U/L ALT 118 H (21-72) U/L Alkaline Phosphatase 591 H (38-126) U/L Albumin 2.6 L (3.5-5.0) g/dL Microbiology - Last 24 Hours (Table) 11/11/18 23:37 Blood Culture - Preliminary Blood No Growth after 120 hours 11/11/18 22:45 Blood Culture - Preliminary Blood No Growth after 120 hours Laboratory Results WBC 8.9 k/uL (3.8-10.6) 11/17/18 07:18 RBC 3.21 m/uL (4.30-5.90) L 11/17/18 07:18 Hgb 7.2 gm/dL (13.0-17.5) L 11/17/18 07:18 Hct 27.0 % (39.0-53.0) L 11/17/18 07:18 MCV 84.2 fL (80.0-100.0) 11/17/18 07:18 MCH 22.5 pg (25.0-35.0) L 11/17/18 07:18 MCHC 26.7 g/dL (31.0-37.0) L 11/17/18 07:18 RDW 17.6 % (11.5-15.5) H 11/17/18 07:18 Plt Count 289 k/uL (150-450) 11/17/18 07:18 Neutrophils % 75 % 11/17/18 07:18 Neutrophils % (Manual) 67 % 11/15/18 07:08 Band Neutrophils % 1 % 11/15/18 07:08 Lymphocytes % 11 % 11/17/18 07:18 Lymphocytes % (Manual) 16 % 11/15/18 07:08 Monocytes % 9 % 11/17/18 07:18 Monocytes % (Manual) 13 % 11/15/18 07:08 Eosinophils % 2 % 11/17/18 07:18 Eosinophils % (Manual) 5 % 11/15/18 07:08 Basophils % 1 % 11/17/18 07:18 Myelocytes % 1 % 11/15/18 07:08 Neutrophils # 6.6 k/uL (1.3-7.7) 11/17/18 07:18 Neutrophils # (Manual) 3.40 k/uL (1.3-7.7) 11/15/18 07:08 Lymphocytes # 1.0 k/uL (1.0-4.8) 11/17/18 07:18 Lymphocytes # (Manual) 0.80 k/uL (1.0-4.8) L 11/15/18 07:08 Monocytes # 0.8 k/uL (0-1.0) 11/17/18 07:18 Monocytes # (Manual) 0.65 k/uL (0-1.0) 11/15/18 07:08 Eosinophils # 0.2 k/uL (0-0.7) 11/17/18 07:18 Eosinophils # (Manual) 0.25 k/uL (0-0.7) 11/15/18 07:08 Basophils # 0.1 k/uL (0-0.2) 11/17/18 07:18 Myelocytes # (Manual) 0.05 k/uL (0) H 11/15/18 07:08 Nucleated RBCs 0 /100 WBC (0-0) 11/15/18 07:08 Manual Slide Review Performed 11/15/18 07:08 Hypochromasia Marked 11/17/18 07:18 Poikilocytosis Slight 11/16/18 07:09 Anisocytosis Slight 11/17/18 07:18 Microcytosis Slight 11/11/18 17:30 PT 11.8 sec (9.0-12.0) 11/11/18 17:30 INR 1.1 (<1.2) 11/11/18 17:30 APTT 30.0 sec (22.0-30.0) 11/11/18 17:30 Sodium 138 mmol/L (137-145) 11/17/18 07:18 Potassium 4.4 mmol/L (3.5-5.1) 11/17/18 07:18 Chloride 108 mmol/L (98-107) H 11/17/18 07:18 Carbon Dioxide 20 mmol/L (22-30) L 11/17/18 07:18 Anion Gap 10 mmol/L 11/17/18 07:18 BUN 21 mg/dL (9-20) H 11/17/18 07:18 Creatinine 0.74 mg/dL (0.66-1.25) 11/17/18 07:18 Est GFR (CKD-EPI)AfAm >90 (>60 ml/min/1.73 sqM) 11/17/18 07:18 Est GFR (CKD-EPI)NonAf >90 (>60 ml/min/1.73 sqM) 11/17/18 07:18 Glucose 98 mg/dL (74-99) 11/17/18 07:18 POC Glucose (mg/dL) 117 mg/dL (75-99) H 11/17/18 11:35 POC Glu [employer] Specialist ID Lindsay Sanches 11/17/18 11:35 Plasma Lactic Acid Ruel 1.2 mmol/L (0.7-2.0) 11/07/18 13:38 Calcium 7.9 mg/dL (8.4-10.2) L 11/17/18 07:18 Ionized Calcium Mario 5.0 mg/dL (4.5-5.3) 11/13/18 07:25 Phosphorus 3.8 mg/dL (2.5-4.5) 11/17/18 07:18 Magnesium 2.1 mg/dL (1.6-2.3) 11/17/18 07:18 Total Bilirubin 0.8 mg/dL (0.2-1.3) 11/17/18 07:18 AST 115 U/L (17-59) H 11/17/18 07:18 ALT 118 U/L (21-72) H 11/17/18 07:18 Alkaline Phosphatase 591 U/L (38-126) H 11/17/18 07:18 Troponin I <0.012 ng/mL (0.000-0.034) 11/07/18 13:38 Total Protein 6.4 g/dL (6.3-8.2) 11/17/18 07:18 Albumin 2.6 g/dL (3.5-5.0) L 11/17/18 07:18 Triglycerides 114 mg/dL (<150) 11/16/18 07:09 Carcinoembryonic Ag 11.7 ng/mL (0.0-4.9) H 11/11/18 08:37 Urine Color Yellow 11/12/18 20:55 Urine Appearance Cloudy (Clear) 11/12/18 20:55 Urine pH 6.0 (5.0-8.0) 11/12/18 20:55 Ur Specific Post 1.019 (1.001-1.035) 11/12/18 20:55 Urine Protein 1+ (Negative) H 11/12/18 20:55 Urine Glucose (UA) Negative (Negative) 11/12/18 20:55 Urine Ketones Negative (Negative) 11/12/18 20:55 Urine Blood Moderate (Negative) H 11/12/18 20:55 Urine Nitrite Negative (Negative) 11/12/18 20:55 Urine Bilirubin 1+ (Negative) H 11/12/18 20:55 Urine Urobilinogen <2.0 mg/dL (<2.0) 11/12/18 20:55 Ur Leukocyte Esterase Large (Negative) H 11/12/18 20:55 Urine RBC 5 /hpf (0-5) 11/12/18 20:55 Urine WBC 42 /hpf (0-5) H 11/12/18 20:55 Urine WBC Clumps Few /hpf (None) H 11/11/18 22:23 Ur Squamous Epith Cells 1 /hpf (0-4) 11/11/18 22:23 Amorphous Sediment Occasional /hpf (None) H 11/08/18 09:00 Urine Bacteria Rare /hpf (None) H 11/12/18 20:55 Urine Mucus Rare /hpf (None) H 11/12/18 20:55 Influenza Type A RNA Not Detected (Not Detectd) 11/12/18 19:05 Influenza Type B (PCR) Not Detected (Not Detectd) 11/12/18 19:05 Blood Type O Positive 11/15/18 17:25 Blood Type Confirm O Positive 11/11/18 17:30 Blood Type Recheck No 11/15/18 17:25 Antibody Screen NEGATIVE 11/15/18 17:25 Crossmatch See Detail 11/15/18 17:25 Spec Expiration Date 11/18/2018 - 232411/15/18 17:25 Microbiology 11/11/18 23:37 Blood Blood Culture - Preliminary No Growth after 120 hours 11/11/18 22:45 Blood Blood Culture - Preliminary No Growth after 120 hours 11/11/18 22:23 Urine,Voided Urine Culture - Final Enterococcus faecalis 11/07/18 13:38 Blood Blood Culture - Final No Growth after 144 hours Assessment and Plan (1) Primary colon cancer without distant metastasis (M0) Current Visit: Yes Status: Acute Code(s): C18.9 - MALIGNANT NEOPLASM OF COLON, UNSPECIFIED SNOMED Code(s): 29807963 (2) Anastomotic stricture of colorectal region Current Visit: Yes Status: Acute Priority: High Code(s): K91.30 - POSTPROC INTESTINAL OBST, UNSP TO PARTIAL VERSUS COMPLETE SNOMED Code(s): 464402066 (3) Enterococcus UTI Narrative/Plan: 58-year-old male who has the known history of adenocarcinoma of the sigmoid colon was been in hospital for several days and very poorly overall. He is now developed fevers up to 101.6 and felt quite poorly overall. He is receiving TPN with his obstructive problem. He also has a known history of the chronic right hydronephrosis that could not be stented per urology. No evidence concerns to new obstructions in the left ureter. The patient is noted feels very poorly overall this pain is better than it was when he first presented hospital. Urine cultures become available and Enterococcus faecalis and consequently antibiotic therapy is now transitioned to ampicillin sulbactam 3 g IV piggyback every 6 hours for a pathogen which also give us coverage for any intra-abdominal pathology. 11/16/2018 patient is feeling slightly better in some ways but is having some flare of his pain to his right lower extremity is likely from tumor pressing on pelvic nerves. Patient remains on TPN and has seemed to have a good response to the antibiotic therapy of Unasyn for the enterococcal urinary tract infection. Would like to arrange 7 days of antibiotic therapy the time of his discharge in the next day with Unasyn. We'll work with the discharge planners to determine the possibility of this in the outpatient setting. 11/17/2018 patient feels a little better today. Pain seems to be a bit better controlled and he does not voice other new complaints. The patient's is present in the plans are discussed. Case management is also involved. The patient is still quite weak and the patient's is very concerned about home intravenous antibiotic therapy. Thus we'll work toward transition to rehab for completion of antibiotic therapy, rehabilitation services to improve his strength to have a more independent at the time of his discharge to home. It has been related there are difficulties obtaining the Unasyn antibiotic therapy. For home, hopefully will be able available at the rehab facility. If not we'll transition to piperacillin tazobactam. Plan the 7 days of therapy at the rehab center given the patient's complex history any obstructive process to the urinary system. Current Visit: Yes Status: Acute Code(s): N39.0 - URINARY TRACT INFECTION, SITE NOT SPECIFIED; B95.2 - ENTEROCOCCUS THE CAUSE OF DISEASES CLASSIFIED ELSEWHERE SNOMED Code(s): 538867736606882
[2018-11-17 17:24] LABS: Glucose,Whole Blood 119 mg/dL (75-99)
[2018-11-17] MEDS: MIRTAZAPINE 15 MG TAB PO SCH (17:32)
[2018-11-17] MEDS: LACTATED RINGERS 1,000 ML IV SCH (20:36)
[2018-11-18] MEDS: [UNRECOGNIZED DRUG - REMARK] IV SCH ×32 (00:05→21:58)
[2018-11-18] MEDS: HYDROmorphone 0.5 MG/0.5 ML SYRINGE IVP PRN ×2 (00:15→05:57)
[2018-11-18 00:19] LABS: Glucose,Whole Blood 131 mg/dL (75-99)
[2018-11-18] MEDS: INSULIN ASPART (NovoLOG) 100 UNIT/ML VIAL SQ SCH ×4 (00:26→17:52)
[2018-11-18] MEDS: PROCHLORPERAZINE 10 MG TAB PO SCH ×4 (04:11→22:07)
[2018-11-18] MEDS: oxyCODONE-APAP 10-325MG 1 EACH TAB PO PRN ×4 (04:12→22:07)
[2018-11-18 05:54] LABS: Glucose,Whole Blood 135 mg/dL (75-99)
[2018-11-18] MEDS: AMPICILLIN-SULBACTAM 3 GM in SODIUM CHLORIDE 0.9% 100 ML IVPB SCH ×3 (05:57→17:06)
[2018-11-18] MEDS: APIXABAN 2.5 MG TABLET PO SCH ×2 (07:37→22:07)
[2018-11-18] MEDS: TAMSULOSIN 0.4 MG CAP.ER.24H PO SCH (07:37)
[2018-11-18] MEDS: GABAPENTIN 300 MG CAP PO SCH ×2 (07:37→22:07)
[2018-11-18] MEDS: FAT EMULSION 20% 250 ML IV SCH (08:02)
[2018-11-18] MEDS: MAG HYDROX/AL HYDROX/SIMETH 30 ML, LIDOCAINE VISCOUS 30 ML, diphenhydrAMINE ELIXIR 75 M... PO SCH ×12 (08:02→22:00)
[2018-11-18 08:51] LABS: Magnesium 2.3 mg/dL (1.6-2.3); Phosphorus 4.3 mg/dL (2.5-4.5)
[2018-11-18 11:13] LABS: Glucose,Whole Blood 109 mg/dL (75-99)
[2018-11-18] MEDS: ACETAMINOPHEN TAB 325 MG TAB PO PRN (11:45)
--- NOTE | 2018-11-18 13:52 | P.PN ---
Subjective Progress Note Date: 11/18/18 This is a 57-year-old male patient of Dr. Dee with past medical history of stage III colon cancer, his been on chemotherapy he is also had metastasis to the spine. Patient is followed by Dr. Dang on a regular basis. Patient was recently discharged from 3 days ago from the hospital with abdominal pain and similar symptoms. Patient was sent home with homecare, he reports he had multiple episodes of vomiting and diarrhea and became increasingly weak. Chest x-ray showed atelectasis at the lateral left lung base that is cleared from previous exam, abdominal x-ray shows dilated bowel possible ileus that was unchanged from previous exam, and possible distal large bowel mechanical obstru ction. Labs show hemoglobin 9, WBC 14.5, sodium 134, BUN 60, creatinine 1.89. He is afebrile, heart rate running in the 90s, blood pressure 120/76, 94% on room air. Surgery and oncology have been consulted, will obtain blood cultures. Patient will be scheduled for barium enema tomorrow to rule out distal bowel obstruction from pelvic tumor mass, and she was placed without difficulty by Dr. Sebastian. This is a 57-year-old male patient of Dr. Dee with past medical history of stage III colon cancer, his been on chemotherapy he is also had metastasis to the spine. Patient is followed by Dr. Dang on a regular basis. Patient was recently discharged from 3 days ago from the hospital with abdominal pain and similar symptoms. Patient was sent home with homecare, he reports he had multiple episodes of vomiting and diarrhea and became increasingly weak. Chest x-ray showed atelectasis at the lateral left lung base that is cleared from previous exam, abdominal x-ray shows dilated bowel possible ileus that was unchanged from previous exam, and possible distal large bowel mechanical obstruction. Labs show hemoglobin 9, WBC 14.5, sodium 134, BUN 60, creatinine 1.89. He is afebrile, heart rate running in the 90s, blood pressure 120/76, 94% on room air. Surgery and oncology have been consulted, will obtain blood cultures. Patient will be scheduled for barium enema tomorrow to rule out distal bowel obstruction from pelvic tumor mass, and she was placed without difficulty by Dr. Sebastian. 11/09: The patient has been afebrile, heart rate running in the 80s and 90s, blood pressure 117/78, pulse ox 90% on room air. Sodium 140, potassium 3.9, chloride 108, CO2 23, BUN 27, creatinine 0.93. Patient had NG tube placed but after 3 hours he pulled this out. He had episode of confusion and hallucination after receiving Ativan during the NG tube placement. Patient had a sitter at the bedside for brief period and this was discontinued. Abdomen is less distended today. He is on TPN. He's been seen by Dr. Sebastian and underwent a barium enema this morning which revealed bowel narrowing within the pelvis consistent with patient's history of distal bowel obstruction. Surgical plans to be discussed with the patient and his . Discussed discharge planning and patient's is requesting placement at [facility] for subacute rehab at the time of discharge. Case management and long term care social worker following the patient. 11/10: Patient underwent sigmoidoscopy with biopsy today that found metastatic colon cancer, anastomotic narrowing with atypical mucosa. Dr. Sebastian has recom mended continuing TPN and she feels he is a surgical candidate. Eliquis has been placed on hold. Dr. Sebastian will discuss with Dr. Tariq. Biopsy is pending. Patient has been afebrile, heart rate in the 70s, blood pressure 112/66, pulse ox 96% on room air. Sodium 141, chloride 110, potassium 4.4, CO2 24, BUN 23, creatinine 0.95. Blood sugars running between 109 and 133. Albumin 2.6. 11/11: business affairs manager has discussed hospice option with the patient and he is currently waiting to discuss with his and does not want to make a decision. Dr. Sebastian has him scheduled for procedure this afternoon but patient is stating he is not going to undergo surgery. Patient is eating very little. He is still on TPN. Patient has been afebrile, heart rate running in the 70s to 100, blood pressure 103/70, pulse ox 100% on room air. Sodium 139, potassium 3.9, chloride 108, CO2 22, BUN 28 creatinine 0.95. Magnesium 1.5, total bilirubin 1.5, AST 37, ALT 24, alkaline phosphatase 255. 11/12: Patient is still waiting discussion regarding any surgical intervention with Dr. Sebastian. Patient is more lethargic today. He does open his eyes to verbal stimuli. Oral intake is poor. He is continued on TPN. He has been afebrile, heart rate in the 70s, blood pressure 95/57, pulse ox 99% on room air. White count is 9.5, hemoglobin 7.7, platelet count 212. Sodium 135, potassium 3.4, chloride 105, CO2 21, BUN 31 and creatinine 0.97. Blood sugars running between 99 and 147. Total bilirubin 2.4, AST 35, ALT 24, albumin 2.5, total protein 6.2. 11/13: Patient has been seen by Dr. Carter regarding fever up to 102. White count remains normal, hemoglobin 7.7, creatinine 1.01. Chest x-ray showed no acute cardiopulmonary process. Abdominal x-ray shows distended and dilated bowels with gas consistent with ileus or partial mechanical obstruction. No change compared to last exam. Ultrasound of the abdomen and pelvis reveals suboptimal study. No ascites evident. Severe right-sided hydronephrosis redemonstrated. New [id number] left-sided hydronephrosis suspected. Yesterday, patient was started on cefepime and vancomycin by oncology. Patient denies having any fever or chills today. He continues to have poor oral intake and is on TPN. He is not interested in taking any protein supplements including Ensure, [place] instant breakfast or Magic cups. Dietitian is attempting to supply a protein rich diet for him with limitations. Patient is only getting up to the bathroom rarely. He is mostly staying in bed. He complains of significant weakness. He denies having any pain with urination or increased frequency. He has Joyner catheter placed for retention. He has generalized abdominal pain which is been chronic. He denies suprapubic pain and flank pain. He states he is tolerating a diet and plan with Dr. Sebastian is to monitor tolerance of his diet over the weekend. Patient has verbalized to staff yesterday and the day before that he does not want to undergo surgery. Hospice has been addressed with the patient from oncology on this admission and previous admission and patient is declining. Revisited today and patient also states he is not ready for hospice and did not want hospice informational meeting. Clarified CODE STATUS which is no code. Urology consult has been added by Dr. Carter regarding a new left-sided hydronephrosis. Antibiotics changed to Unasyn. Patient ambulated in hallway today. 11/14: Patient was resting comfortably up in a chair. He is waiting for his to come with breakfast. Patient denies any abdominal discomfort nausea or vom iting. Patient is having bowel movements that are not diarrhea or bloody. He is tolerating his anticoagulant without any difficulties. Patient spoke with Dr. Tariq yesterday evening and has decided not to move forward with the CAT scan, surgery, or stent placement to bilateral kidneys. At this time he will continue to monitor his symptoms and see if he can tolerate food. 11/15: Patient has been afebrile, heart rate in the 70s, blood pressure 95/52. Patient is still receiving TPN he is also tolerating oral intake without any nausea or vomiting. Patient is continuing to have bowel movements with no diarrhea or bloody stool. At this time no surgical interventions will be completed. He does have indwelling catheter. 11/16: Patient states that he is eating about half of his meals. He denies having any vomiting. He's only had [address] Sebastian is following on an as-needed basis. Patient has met with Dr. Iverson and discussed self-catheterization as he feels this would be better tolerated. Patient can follow-up with Dr. Mcgrath next week. He is complaining of increasing left leg pain and gabapentin will be increased to 300 mg twice daily. Anticipate probable discharge in next 24 hours. 11/17: Patient is tolerating diet but eating very little. He remains on TPN. Patient denies having diarrhea or constipation. Joyner cath remains in place which we will plan to discharge him with a Joyner in place and follow up with Dr. Mcgrath as an outpatient. Patient is ambulating well with physical therapy but becomes fatigued early. He does plan to return home with his . She will be working until so discharge is planned for . Dr. Carter has clarified IV antibiotics with Unasyn for 7 days. Patient has a port in place which will be utilized. Oncology has scheduled him for a PET scan on Friday and follow-up with Dr. Tariq next week. 11/18: Patient states that his discharge plan is now to go to [facility] but still requesting to wait until for discharge. Dietitian voices that patient should be considered for tube feeding. This has been discussed with the patient and he is open to Dr. Sebastian reevaluating him for this and she has determined that to feeding will not help his current situation due to his obstruction. TPN will be weaned off today with anticipation of discharge tomorrow to [facility]. Temperature max 100.6 in the past 24 hours, heart rate in the 80s and 90s, blood pressure 105/68, pulse ox 99% on room air. Dr. Carter will transition antibiotics to Zosyn for 7 days at rehab. Patient will be discharged tomorrow with Joyner catheter in place for retention. Review of Systems Constitutional: Reports fatigue, Reports weakness, reports malaise, Denies chills, Denies fever, Ears, nose, mouth and throat: Denies dysphagia, Denies headache, Denies hoarseness, Denies mouth pain, Denies nasal congestion, Denies nasal discharge, Denies post-nasal drip, Denies sore throat Cardiovascular: Denies chest pain, Denies edema, Denies high blood pressure, Denies leg edema, Denies orthopnea, Denies palpitations, Denies shortness of breath, Denies syncope Respiratory: Denies congestion, Denies cough, Denies dyspnea, Denies pain Gastrointestinal: Reports abdominal pain, denies diarrhea, reports loss of appetite, denies nausea, denies vomiting, Denies constipation, Denies dyspepsia, Denies hematemesis, reports anorexia. Genitourinary: Denies dysuria, Denies flank pain, Denies hematuria, Denies n octuria, Denies urinary frequency, Denies urinary retention Musculoskeletal: Reports muscle weakness, Denies atrophy, Denies frequent falls, Denies gait dysfunction, Denies leg numbness/tingling, Denies limitation of motion, Denies neck pain, Denies neck stiffness Neurological: Reports weakness, reports confusion, Denies gait dysfunction, Denies headaches, Denies memory loss, Denies numbness, Denies paralysis, Denies seizures, Denies syncope Objective - Vital Signs Vital signs: Vital Signs Temp 98.7 F 11/18/18 05:00 Pulse 81 11/18/18 05:00 Resp 17 11/18/18 05:00 BP 105/68 11/18/18 05:00 Pulse Ox 99 11/18/18 05:00 Intake & Output 11/17/18 11/18/18 11/18/18 18:59 06:59 18:59 Intake Total 1018.333 Output Total 1600 650 Balance -1600 368.333 Weight 79.5 kg Intake: Intake, IV Titration 1018.333 Amount Sodium Acetate 35 meq 1018.333 Potassium Phosphate 10 mmol Mvi, Adult No.4 with Vit K 10 ml Trace (Conc- 1Ml/Dose) 1 ml Magnesium Sulfate gm 2 gm Potassium Chloride 20 meq Calcium Gluconate 1 gm In Amino Acid 5%-D15w 1,000 ml @ 100 mls/hr IV .BY [facility] Rx#: [id number] Output: Urine 1600 650 Uretheral (Joyner) 600 650 Other: Voiding Method Indwelling Catheter Indwelling Catheter - Exam Gen: This is a thin 58-year-old male. He is resting in bed and appears to be comfortable and in no acute distress. HEENT: Head is atraumatic, normocephalic. Pupils equal, round. Sclerae is anicteric. Oral mucous membranes are moist. Lesions noted on the soft palate and tongue. NECK: Supple. No JVD. No lymphadenopathy. No thyromegaly. LUNGS: Clear to auscultation. No wheezes or rhonchi. No intercostal retractions. No accessory muscle usage. HEART: Regular rate and rhythm. No murmur. ABDOMEN: Slightly distended. Soft. Bowel sounds are present. No masses. No tenderness. Joyner catheter draining clear carolyn urine. EXTREMITIES: No pedal edema. No calf tenderness. Dorsalis pedis +1 bilaterally. NEUROLOGICAL: Patient is awake, alert and oriented x3. Cranial nerves 2 through 12 are grossly intact. - Labs CBC & Chem 7: 11/17/18 07:18 11/17/18 07:18 Labs: Abnormal Lab Results - Last 24 Hours (Table) 11/17/18 11/17/18 11/18/18 Range/Units 11:35 17:22 00:18 POC Glucose (mg/dL) 117 H 119 H 131 H (75-99) mg/dL 11/18/18 Range/Units 05:53 POC Glucose (mg/dL) 135 H (75-99) mg/dL Microbiology - Last 24 Hours (Table) 11/11/18 23:37 Blood Culture - Final Blood No Growth after 144 hours 11/11/18 22:45 Blood Culture - Final Blood No Growth after 144 hours Assessment and Plan Plan: 1. Acute abdominal pain: X-ray shows ileus with bowel narrowing. Consult with Dr. Sebastian appreciated. NG tube has been removed by the patient. Status post barium enema and sigmoidoscopy with biopsy. Continue on Zofran, Protonix and Compazine. No surgical intervention planned. Eliquis resumed. TPN to be discontinued today. 2. Acute kidney injury: Secondary to dehydration, continue with IV fluids. 3. Severe dehydration: IV hydration 4. Colon cancer with metastasis: Has been on chemotherapy and sees oncology on regular basis, oncology on consult 5. History of DVT: Continue eliquis 2.5 mg twice a day. Patient has completed his course of therapy for DVT but patient's primary oncologist has recommended continuing eliquis due to cancer diagnosis. 6. Anemia: Secondary to chemotherapy and cancer, will monitor CBC. 7. Severe protein calorie malnutrition. Continue TPN. Dietitian is following. Plan is to try and increase oral intake and monitor. 8. Fever, probable urinary tract infection with urinary retention and bilateral hydronephrosis. Consult with Dr. Carter appreciated. Urine culture Group D enterococcus. Blood culture in progress. Dr. Bravo is planning for one week of IV Zosyn. 9. Urinary retention requiring Joyner catheter placement. Flomax 0.4 mg daily added 8. GI prophylaxis. Protonix 40 mg daily 9. DVT prophylaxis. Eliquis. CODE STATUS: Full code Discharge plan: on Impression and plan of care have been directed as dictated by the signing physician. Brea Garcia nurse practitioner acting as scribe for signing physician.
--- NOTE | 2018-11-18 13:57 | P.GSCN ---
History of Present Illness Consult date: 11/18/18 Reason for Consult: Possible PEG tube History of present illness: I spoke with Dr. Larsen. He wanted me to evaluate the patient to see whether the patient would be a candidate for a PEG tube if there is a recurrent admission with nausea and vomiting. This would be to avoid TPN and use enteral route for nutrition. The patient is doing fairly well. He is on IV antibiotics for urinary tract infection. Patient and feel his back to his baseline oral nutrition level. According to nursing documentation this does appear to be fairly poor. 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 and that he R kidney hydronephrosis/loss of function because tumor cut off blood supply to that kidney, UTI with sepsis, R leg DVT History of Any Multi-Drug Resistant Organisms: C-DIFF Year Discovered:: 2016 MDRO Source:: Bowel Past Surgical History: Bowel Resection, Cholecystectomy Additional Past Surgical History / Comment(s): Colonectomy, R renal stent at [facility]-other attempts to stent had failed and pt had a ureter perforation, c olonoscopies Past Anesthesia/Blood Transfusion Reactions: No Reported Reaction Additional Past Anesthesia/Blood Transfusion Reaction / Comm: Pt has received blood in past without reaction. Past Psychological History: No Psychological Hx Reported Additional Psychological History / Comment(s): Pt resides with his spouse. He uses a cane to ambulate. He drives seldom. He is independent. Smoking Status: Never smoker Past Alcohol Use History: None Reported Past Drug Use History: None Reported - Past Family History Brother(s) Family Medical History: Cancer Additional Family Medical History / Comment(s): One brother had leukemia and another brother from SIDS Father Additional Family Medical History / Comment(s): Father from a ruptured brain aneurysm at the age of 87yrs. Mother Family Medical History: Unable to Obtain Additional Family Medical History / Comment(s): Pt states mother is 87yrs old and does not go to the doctors. Medications and Allergies Home Medications Medication Instructions Recorded Confirmed Type Apixaban [Eliquis] 2.5 mg PO BID 01/11/18 11/07/18 History Diphenox-Atrop 2.5-0.025 mg 1 tab PO QID PRN 01/11/18 11/07/18 History [Lomotil] oxyCODONE-APAP 10-325MG [Percocet 1 - 2 tab PO Q6HR PRN 01/11/18 11/07/18 History 10-325 mg] Ampicillin Sodium/Sulbactam Na 3 gm IJ Q6HR #28 vial 11/16/18 Rx [Ampicillin-Sulbactam 3 gm Vial] Allergies Allergy/AdvReac Type Severity Reaction Status Date / Time lorazepam [From Ativan] AdvReac Hallucinati Verified 11/12/18 15:41 ons Surgical - Exam Osteopathic Statement: *. No significant issues noted on an osteopathic structu ral exam other than those noted in the History and Physical/Consult. Vital Signs Temp Pulse Resp BP Pulse Ox 97.7 F 99 18 112/85 97 11/07/18 12:29 11/07/18 12:29 11/07/18 12:29 11/07/18 12:29 11/07/18 12:29 - General well developed, well nourished, no distress - Eyes normal ocular movement - Neck trachea midline - Abdomen Abdomen: soft Results - Labs 11/17/18 07:18 11/17/18 07:18 Abnormal Lab Results - Last 24 Hours (Table) 11/17/18 11/18/18 11/18/18 Range/Units 17:22 00:18 05:53 POC Glucose (mg/dL) 119 H 131 H 135 H (75-99) mg/dL 11/18/18 Range/Units 11:12 POC Glucose (mg/dL) 109 H (75-99) mg/dL Microbiology - Last 24 Hours (Table) 11/11/18 23:37 Blood Culture - Final Blood No Growth after 144 hours 11/11/18 22:45 Blood Culture - Final Blood No Growth after 144 hours Calcium panel 11/18/18 Range/Units 07:33 Phosphorus 4.3 (2.5-4.5) mg/dL - Imaging Additional studies: Imaging had been reviewed earlier this admission. 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 There is a partial, high-grade obstruction at the ileocolic anastomosis. This is due to the pelvic tumor. Assessment and Plan Assessment: Episodes of nausea, vomiting, dehydration (1) Primary colon cancer without distant metastasis (M0) Current Visit: Yes Status: Acute Code(s): C18.9 - MALIGNANT NEOPLASM OF COLON, UNSPECIFIED SNOMED Code(s): 12473900 (2) Anastomotic stricture of colorectal region Current Visit: Yes Status: Acute Priority: High Code(s): K91.30 - POSTPROC INTESTINAL OBST, UNSP TO PARTIAL VERSUS COMPLETE SNOMED Code(s): 797960567 (3) Fever Current Visit: Yes Status: Acute Code(s): R50.9 - FEVER, UNSPECIFIED SNOMED Code(s): 581599777 (4) UTI (urinary tract infection) Current Visit: No Status: Acute Code(s): N39.0 - URINARY TRACT INFECTION, SITE NOT SPECIFIED SNOMED Code(s): 08655619 Plan: I agree TPN as not the best form of nutrition. Unfortunately if he develops the paralytic ileus, particularly after chemo, resulting in nausea and vomiting a feeding tube would not help the situation. It may exacerbate it. If he develops further obstructive symptoms a diverting procedure would be the surgical treatment of choice. Please notify me if anything changes about be hap py to see him again.
[2018-11-18 14:36] VITALS: BMI 24.4
[2018-11-18] MEDS: MIRTAZAPINE 15 MG TAB PO SCH (17:05)
[2018-11-18 17:18] LABS: Glucose,Whole Blood 99 mg/dL (75-99)
[2018-11-18 21:48] VITALS: RESP 16
[2018-11-18] MEDS: LACTATED RINGERS 1,000 ML IV SCH (21:59)
[2018-11-19] MEDS: AMPICILLIN-SULBACTAM 3 GM in SODIUM CHLORIDE 0.9% 100 ML IVPB SCH ×3 (00:10→11:04)
[2018-11-19 00:11] LABS: Glucose,Whole Blood 98 mg/dL (75-99)
[2018-11-19] MEDS: INSULIN ASPART (NovoLOG) 100 UNIT/ML VIAL SQ SCH ×3 (01:10→13:02)
[2018-11-19] MEDS: oxyCODONE-APAP 10-325MG 1 EACH TAB PO PRN ×3 (02:43→15:15)
[2018-11-19 05:37] LABS: Glucose,Whole Blood 87 mg/dL (75-99)
[2018-11-19] MEDS: PROCHLORPERAZINE 10 MG TAB PO SCH ×3 (05:43→15:15)
[2018-11-19 07:44] LABS: Anisocytosis Slight; HCT 25.5 % (39.0-53.0); HGB 7.4 gm/dL (13.0-17.5); Hypochromasia Marked; MCH 24.8 pg (25.0-35.0); MCV 85.6 fL (80.0-100.0); Mean Platelet Volume 7.8; Platelet Count 288 k/uL (150-450); RBC 2.98 m/uL (4.30-5.90); RDW 17.6 % (11.5-15.5); WBC 10.1 k/uL (3.8-10.6)
[2018-11-19 07:59] LABS: ALT 225 U/L (21-72); AST 290 U/L (17-59); Albumin 2.7 g/dL (3.5-5.0); Alkaline Phosphatase 691 U/L (38-126); Anion Gap 8 mmol/L; Blood Urea Nitrogen 21 mg/dL (9-20); Calcium 8.4 mg/dL (8.4-10.2); Carbon Dioxide 24 mmol/L (22-30); Chloride 108 mmol/L (98-107); Glucose 75 mg/dL (74-99); Magnesium 2.2 mg/dL (1.6-2.3); Phosphorus 4.7 mg/dL (2.5-4.5); Potassium 5.2 mmol/L (3.5-5.1); Sodium 140 mmol/L (137-145); Total Bilirubin 1.1 mg/dL (0.2-1.3); Total Protein 6.6 g/dL (6.3-8.2); Triglycerides 129 mg/dL (<150)
[2018-11-19] MEDS: TAMSULOSIN 0.4 MG CAP.ER.24H PO SCH (07:59)
[2018-11-19] MEDS: APIXABAN 2.5 MG TABLET PO SCH (08:00)
[2018-11-19] MEDS: FAT EMULSION 20% 250 ML IV SCH (08:00)
[2018-11-19] MEDS: MAG HYDROX/AL HYDROX/SIMETH 30 ML, LIDOCAINE VISCOUS 30 ML, diphenhydrAMINE ELIXIR 75 M... PO SCH ×4 (08:00)
[2018-11-19] MEDS: GABAPENTIN 300 MG CAP PO SCH (08:00)
--- NOTE | 2018-11-19 11:14 | P.DS ---
Providers Date of admission: 11/07/18 15:31 Expected date of discharge: 11/19/18 Attending physician: Srinivas Hay Consults: 11/07/18 15:46 Consult Physician Stat Consulting Provider: Talha Dubois Consult Reason/Comments: ileus Do you want consulting provider notified?: Yes 11/10/18 10:46 Consult Physician Routine Consulting Provider: Lita Tariq Consult Reason/Comments: colon cancer Do you want consulting provider notified?: Already Contacted 11/12/18 14:17 Consult Physician Routine Consulting Provider: Frederick Carter Consult Reason/Comments: fever overnight, Positive UTI complicated immunocompromised Do you want consulting provider notified?: Yes 11/13/18 10:55 Consult Physician Urgent Consulting Provider: Dane Mcgrath Consult Reason/Comments: L ureteral stent Do you want consulting provider notified?: Yes 11/18/18 11:40 Consult Physician Routine Consulting Provider: Marley Sebastian Consult Reason/Comments: eval for feeding tube Do you want consulting provider notified?: Yes Primary care physician: Mick Russ [place] [facility] Course: This is a 57-year-old male patient of Dr. Dee with past medical history of stage III colon cancer, his been on chemotherapy he is also had metastasis to the spine. Patient is followed by Dr. Dang on a regular basis. Patient was recently discharged from 3 days ago from the hospital with abdominal pain and similar symptoms. Patient was sent home with homecare, he reports he had multiple episodes of vomiting and diarrhea and became increasingly weak. Chest x-ray showed atelectasis at the lateral left lung base that is cleared from previous exam, abdominal x-ray shows dilated bowel possible ileus that was unchanged from previous exam, and possible distal large bowel mechanical obstruction. Labs show hemoglobin 9, WBC 14.5, sodium 134, BUN 60, creatinine 1.89. He is afebrile, heart rate running in the 90s, blood pressure 120/76, 94% on room air. Surgery and oncology have been consulted, will obtain blood cultures. Patient will be scheduled for barium enema tomorrow to rule out distal bowel obstruction from pelvic tumor mass, and she was placed without difficulty by Dr. Sebastian. This is a 57-year-old male patient of Dr. Dee with past medical history of stage III colon cancer, his been on chemotherapy he is also had metastasis to the spine. Patient is followed by Dr. Dang on a regular basis. Patient was recently discharged from 3 days ago from the hospital with abdominal pain and similar symptoms. Patient was sent home with homecare, he reports he had multiple episodes of vomiting and diarrhea and became increasingly weak. Chest x-ray showed atelectasis at the lateral left lung base that is cleared from previous exam, abdominal x-ray shows dilated bowel possible ileus that was unchanged from previous exam, and possible distal large bowel mechanical obstruction. Labs show hemoglobin 9, WBC 14.5, sodium 134, BUN 60, creatinine 1.89. He is afebrile, heart rate running in the 90s, blood pressure 120/76, 94% on room air. Surgery and oncology have been consulted, will obtain blood cultures. Patient will be scheduled for barium enema tomorrow to rule out distal bowel obstruction from pelvic tumor mass, and she was placed without difficulty by Dr. Sebastian. 11/09: The patient has been afebrile, heart rate running in the 80s and 90s, blood pressure 117/78, pulse ox 90% on room air. Sodium 140, potassium 3.9, chloride 108, CO2 23, BUN 27, creatinine 0.93. Patient had NG tube placed but after 3 hours he pulled this out. He had episode of confusion and hallucination after receiving Ativan during the NG tube placement. Patient had a sitter at the bedside for brief period and this was discontinued. Abdomen is less distended today. He is on TPN. He's been seen by Dr. Sebastian and underwent a barium enema this morning which revealed bowel narrowing within the pelvis consistent with patient's history of distal bowel obstruction. Surgical plans to be discussed with the patient and his . Discussed discharge planning and patient's is requesting placement at [facility] for subacute rehab at the time of discharge. Case management and child protective services social worker following the patient. 11/10: Patient underwent sigmoidoscopy with biopsy today that found metastatic colon cancer, anastomotic narrowing with atypical mucosa. Dr. Sebastian has recommended continuing TPN and she feels he is a surgical candidate. Eliquis has been placed on hold. Dr. Sebastian will discuss with Dr. Tariq. Biopsy is pending. Patient has been afebrile, heart rate in the 70s, blood pressure 112/66, pulse ox 96% on room air. Sodium 141, chloride 110, potassium 4.4, CO2 24, BUN 23, creatinine 0.95. Blood sugars running between 109 and 133. Albumin 2.6. 11/11: military technology manager has discussed hospice option with the patient and he is currently waiting to discuss with his and does not want to make a decision. Dr. Sebastian has him scheduled for procedure this afternoon but patient is stating he is not going to undergo surgery. Patient is eating very little. He is still on TPN. Patient has been afebrile, heart rate running in the 70s to 100, blood pressure 103/70, pulse ox 100% on room air. Sodium 139, potassium 3.9, chloride 108, CO2 22, BUN 28 creatinine 0.95. Magnesium 1.5, total bilirubin 1.5, AST 37, ALT 24, alkaline phosphatase 255. 11/12: Patient is still waiting discussion regarding any surgical intervention with Dr. Sebastian. Patient is more lethargic today. He does open his eyes to verbal stimuli. Oral intake is poor. He is continued on TPN. He has been afebrile, heart rate in the 70s, blood pressure 95/57, pulse ox 99% on room air. White count is 9.5, hemoglobin 7.7, platelet count 212. Sodium 135, potassium 3.4, chloride 105, CO2 21, BUN 31 and creatinine 0.97. Blood sugars running between 99 and 147. Total bilirubin 2.4, AST 35, ALT 24, albumin 2.5, total protein 6.2. 11/13: Patient has been seen by Dr. Carter regarding fever up to 102. White count remains normal, hemoglobin 7.7, creatinine 1.01. Chest x-ray showed no acute cardiopulmonary process. Abdominal x-ray shows distended and dilated bowels with gas consistent with ileus or partial mechanical obstruction. No change compared to last exam. Ultrasound of the abdomen and pelvis reveals suboptimal study. No ascites evident. Severe right-sided hydronephrosis redemonstrated. New [id number] left-sided hydronephrosis suspected. Yesterday, patient was started on cefepime and vancomycin by oncology. Patient denies having any fever or chills today. He continues to have poor oral intake and is on TPN. He is not interested in taking any protein supplements including Ensure, [place] instant breakfast or Magic cups. Dietitian is attempting to supply a protein rich diet for him with limitations. Patient is only getting up to the bathroom rarely. He is mostly staying in bed. He complains of significant weakness. He denies having any pain with urination or increased frequency. He has Joyner catheter placed for retention. He has generalized abdominal pain which is been chronic. He denies suprapubic pain and flank pain. He states he is tolerating a diet and plan with Dr. Sebastian is to monitor tolerance of his diet over the weekend. Patient has verbalized to staff yesterday and the day before that he does not want to undergo surgery. Hospice has been addressed with the patient from oncology on this admission and previous admission and patient is declining. Revisited today and patient also states he is not ready for hospice and did not want hospice informational meeting. Clarified CODE STATUS which is no code. Urology consult has been added by Dr. Carter regarding a new left-sided hydronephrosis. Antibiotics changed to Unasyn. Patient ambulated in hallway today. 11/14: Patient was resting comfortably up in a chair. He is waiting for his to come with breakfast. Patient denies any abdominal discomfort nausea or vomiting. Patient is having bowel movements that are not diarrhea or bloody. He is tolerating his anticoagulant without any difficulties. Patient spoke with Dr. Tariq yesterday evening and has decided not to move forward with the CAT scan, surgery, or stent placement to bilateral kidneys. At this time he will continue to monitor his symptoms and see if he can tolerate food. 11/15: Patient has been afebrile, heart rate in the 70s, blood pressure 95/52. Patient is still receiving TPN he is also tolerating oral intake without any nausea or vomiting. Patient is continuing to have bowel movements with no diarrhea or bloody stool. At this time no surgical interventions will be completed. He does have indwelling catheter. 11/16: Patient states that he is eating about half of his meals. He denies h aving any vomiting. He's only had [address] Sebastian is following on an as-needed basis. Patient has met with Dr. Iverson and discussed self-catheterization as he feels this would be better tolerated. Patient can follow-up with Dr. Mcgrath next week. He is complaining of increasing left leg pain and gabapentin will be increased to 300 mg twice daily. Anticipate probable discharge in next 24 hours. 11/17: Patient is tolerating diet but eating very little. He remains on TPN. Patient denies having diarrhea or constipation. Joyner cath remains in place which we will plan to discharge him with a Joyner in place and follow up with Dr. Mcgrath as an outpatient. Patient is ambulating well with physical therapy but becomes fatigued early. He does plan to return home with his . She will be working until so discharge is planned for . Dr. Carter has clarified IV antibiotics with Unasyn for 7 days. Patient has a port in place wh ich will be utilized. Oncology has scheduled him for a PET scan on Friday and follow-up with Dr. Tariq next week. 11/18: Patient states that his discharge plan is now to go to [facility] but still requesting to wait until for discharge. Dietitian voices that patient should be considered for tube feeding. This has been discussed with the patient and he is open to Dr. Sebastian reevaluating him for this and she has determined that to feeding will not help his current situation due to his obstruction. TPN will be weaned off today with anticipation of discharge tomorrow to [facility]. Temperature max 100.6 in the past 24 hours, heart rate in the 80s and 90s, blood pressure 105/68, pulse ox 99% on room air. Dr. Carter will transition antibiotics to Zosyn for 7 days at rehab. Patient will be discharged tomorrow with Joyner catheter in place for retention. 11/19: Temperature maximum past 24 hours is 100.4. Heart rate in the 80s, blood pressure 92/50, pulse ox 97% on room air. WBC 10.1, hemoglobin 7.4. Potassium 5.2, chloride 108, CO2 24, BUN 21 creatinine 0.84. Total bilirubin 1.1, AST 290, ALT 225, alkaline phosphatase 691. Patient denies any new complaints. Patient's is at the bedside and all questions have been answered. Patient will be discharged to [facility] today and stable condition. Discharge diagnoses: 1. Acute abdominal pain secondary to bowel narrowing. 2. Acute kidney injury: Secondary to dehydration 3. Severe dehydration: 4. Colon cancer with metastasis 5. History of DVT 6. Anemia: Secondary to chemotherapy and cancer 7. Severe protein calorie malnutrition. 8. Urinary tract infection with urinary retention and bilateral hydronephrosis. 9. Urinary retention requiring Joyner catheter placement. Discharge plan: on Impression and plan of care have been directed as dictated by the signing physician. Brea Garcia nurse practitioner acting as scribe for signing physician. Patient Condition at Discharge: Good Plan - Discharge Summary Discharge Rx Participant: No New Discharge Prescriptions: New diphenhydrAMINE ELIXIR [Benadryl Elixir] 75 mg PO TID cup Prochlorperazine [Compazine] 10 mg PO Q6H tab Tamsulosin [Flomax] 0.4 mg PO PC-BRKFST cap.er.24h Mag Hydrox/Al Hydrox/Simeth [Maalox] 30 ml PO TID cup Gabapentin [Neurontin] 300 mg PO BID #6 cap Mirtazapine [Remeron] 15 mg PO 1800 #0 tab Acetaminophen Tab [Tylenol] 650 mg PO Q6HR PRN tab PRN Reason: Fever And/ Or Pain Piperacillin-Tazobactam [Zosyn] 3.375 gm IVPB Q8HR #21 bag Continue Diphenox-Atrop 2.5-0.025 mg [Lomotil] 1 tab PO QID PRN PRN Reason: Diarrhea Apixaban [Eliquis] 2.5 mg PO BID Changed oxyCODONE-APAP 10-325MG [Percocet 10-325 mg] 1 tab PO Q6HR PRN #12 tab PRN Reason: Pain Discharge Medication List Apixaban [Eliquis] 2.5 mg PO BID 01/11/18 [History] Diphenox-Atrop 2.5-0.025 mg [Lomotil] 1 tab PO QID PRN 01/11/18 [History] Acetaminophen Tab [Tylenol] 650 mg PO Q6HR PRN tab 11/19/18 [Rx] Gabapentin [Neurontin] 300 mg PO BID #6 cap 11/19/18 [Rx] Mag Hydrox/Al Hydrox/Simeth [Maalox] 30 ml PO TID cup 11/19/18 [Rx] Mirtazapine [Remeron] 15 mg PO 1800 #0 tab 11/19/18 [Rx] Piperacillin-Tazobactam [Zosyn] 3.375 gm IVPB Q8HR #21 bag 11/19/18 [Rx] Prochlorperazine [Compazine] 10 mg PO Q6H tab 11/19/18 [Rx] Tamsulosin [Flomax] 0.4 mg PO PC-BRKFST cap.er.24h 11/19/18 [Rx] diphenhydrAMINE ELIXIR [Benadryl Elixir] 75 mg PO TID cup 11/19/18 [Rx] oxyCODONE-APAP 10-325MG [Percocet 10-325 mg] 1 tab PO Q6HR PRN #12 tab 11/19/18 [Rx] Follow up Appointment(s)/Referral(s): Dane Mcgrath MD [STAFF PHYSICIAN] - 1 Week Frederick Carter MD [STAFF PHYSICIAN] - 1 Week Mick Russ MD [Primary Care Provider] - 1 Week Lita Tariq MD [STAFF PHYSICIAN] - 12/07/18 11:15 am (Appt for PET scan results) Ambulatory/Diagnostic Orders: Complete Blood Count w/diff [LAB.AMB] Location: None Selected Comprehensive Metabolic Panel [LAB.AMB] Location: None Selected Activity/Diet/Wound Care/Special Instructions: PET SCAN SCHED FOR FridayNovember AT [facility]. ARRIVAL TIME IS 0930AM Discharge Disposition: HOME WITH HOME HEALTH SERVICES
--- NOTE | 2018-11-19 12:45 | P.PN ---
Subjective Progress Note Date: 11/19/18 Principal diagnosis: ileus, Hx metastatic colon adenocarcinoma In follow-up today patient is resting comfortably, he is very weak, and the plan is for him to participate in rehab at [facility]. He is currently denying vomiting, painful stools, bleeding. Objective - Vital Signs Vital signs: Vital Signs Temp 98.6 F 11/19/18 05:00 Pulse 80 11/19/18 08:00 Resp 16 11/19/18 08:00 BP 92/50 11/19/18 05:00 Pulse Ox 97 11/19/18 05:00 Intake & Output 11/18/18 11/19/18 11/19/18 18:59 06:59 18:59 Intake Total 1415.8333 240 Output Total 2000 900 1200 Balance -584.1667 -900 -960 Weight 79.5 kg 77.5 kg Intake: Intake, IV Titration 1055.8333 Amount Sodium Acetate 35 meq 1055.8333 Potassium Phosphate 10 mmol Mvi, Adult No.4 with Vit K 10 ml Trace (Conc- 1Ml/Dose) 1 ml Magnesium Sulfate gm 2 gm Potassium Chloride 20 meq Calcium Gluconate 1 gm In Amino Acid 5%-D15w 1,000 ml @ 100 mls/hr IV .BY [facility] Rx#: [id number] Oral 360 240 Output: Urine 1999 900 1200 Uretheral (Joyner) 1000 900 200 Other: Voiding Method Indwelling Catheter Indwelling Catheter Indwelling Catheter # Voids 2 2 - Exam Well-developed, thin, frail, cachectic, male laying in bed, no acute distress, alert, oriented to self place and time, normocephalic, atraumatic, anicteric sclera, respirations are even and unlabored, patient does require some assistance to move body weight, abdomen is visibly distended, lower extremities mild swelling. - Labs CBC & Chem 7: 11/19/18 07:06 11/19/18 07:06 Labs: Abnormal Lab Results - Last 24 Hours (Table) 11/19/18 11/19/18 Range/Units 07:06 07:06 RBC 2.98 L (4.30-5.90) m/uL Hgb 7.4 L (13.0-17.5) gm/dL Hct 25.5 L (39.0-53.0) % MCH 24.8 L (25.0-35.0) pg MCHC 29.0 L (31.0-37.0) g/dL RDW 17.6 H (11.5-15.5) % Potassium 5.2 H (3.5-5.1) mmol/L Chloride 108 H (98-107) mmol/L BUN 21 H (9-20) mg/dL Phosphorus 4.7 H (2.5-4.5) mg/dL AST 290 H (17-59) U/L ALT 225 H (21-72) U/L Alkaline Phosphatase 691 H (38-126) U/L Albumin 2.7 L (3.5-5.0) g/dL Assessment and Plan (1) Anastomotic stricture of colorectal region Current Visit: Yes Status: Acute Priority: High Code(s): K91.30 - POSTPROC INTESTINAL OBST, UNSP TO PARTIAL VERSUS COMPLETE SNOMED Code(s): 239441264 (2) Ileus Current Visit: Yes Status: Acute Priority: Medium Code(s): K56.7 - ILEUS, UNSPECIFIED SNOMED Code(s): 903129449 (3) Obstructive uropathy Current Visit: Yes Status: Acute Priority: High Code(s): N13.9 - OBSTRUCTIVE AND REFLUX UROPATHY, UNSPECIFIED SNOMED Code(s): 3626106 (4) Colon adenocarcinoma Narrative/Plan: Since patient is going to be participating in rehabilitation, PET scan has been rescheduled for 2 weeks from now, date and time are in the chart with follow-up appointment with Dr. Tariq. Once imaging is performed, Dr. Tariq can discuss with patient probably will proceed forward in regards to his colon cancer. Patient is currently not on any treatment for colon cancer. Current Visit: Yes Status: Chronic Priority: High Code(s): C18.9 - MALIGNANT NEOPLASM OF COLON, UNSPECIFIED SNOMED Code(s): 893979209
[2018-11-19] MEDS: [UNRECOGNIZED DRUG - REMARK] IV SCH ×8 (13:04)
[2018-11-19 13:32] VITALS: BP 96/57; TEMP 98.8
[2018-11-19 16:07] VITALS: PULSE 80
--- NOTE | 2018-11-19 22:44 | P.PN ---
Subjective Progress Note Date: 11/19/18 This is a 58-year-old male patient with history of adenocarcinoma of the sigmoid status post subtotal colectomy with ileorectal anastomosis in 2013, colonoscopy on 05/12/2015 revealed tibular adenoma in the rectum which was removed. December 2015 he was positive for DVT and he was started on eliquis. He underwent CT scan of abdomen/pelvis on 02/22/2016 which revealed 9.4x5.5cm mass in righ pelvis causing significant hydronephrosis. Cystoscopy and ureteral stent placement was attempted but stent could not be placed. On 02/27/2016, FNA of the pelvic mass was positive for adenocarcinoma consistent with colon primary. PET scan revealed very large right pelvic mass invading the sacrum with multiple lung lesions and hilar nodes. He had right nephrostomy tube placed at and he was also evaluated by oncology at on 03/14/2016 and recommended systemic therapy first. He completed 10 cycles of mFOLFOX. Repeat PET scan on 09/08/2016 revealed disease progression in his pelvis and he completed 11 cycles of FOLFIRI/Avastin on 02/26/2017 (he declined the last cycle). He started maintenance xeloda/avastin he ended up with bleeding in his kidney and retroperitoneal hemorrhage and treated at [facility]. Repeat PET scan in July 2017 revealed progression of his disease in the pelvis with chronic right hydronephrosis. He has been intermittently on Xeloda/Avastin. In August of this year, he started Avastin/FOLFIRI. He had a recent hospitalization for October 22 through November 03 for abdominal pain and diarrhea secondary to chemotherapy or enteritis and acute kidney injury with dehydration with complaints of generalized abdominal pain, lack of appetite and inability to keep food down. He was treated with TPN and started on Remeron and eventually discharged home. At home, he did not have a bowel movement for 2 days he was feeling increasing weakness and came back to the emergency center for evaluation. Abdominal x-ray showed dilated bowel possible ileus that was unchanged from previous exam with possible distal large bowel mechanical obstruction. Chest x-ray showed atelectasis in the lateral left lung base that is cleared from previous exam. He underwent a barium enema that showed bowel narrowing within the pelvis consistent with patient's history of distal bowel obstruction. Cystoscopy was done which showed metastatic colon cancer, anastomotic narrowing with atypical mucosa. Pathology was consistent with benign enteric mucosa consistent with coloenteric anastomosis. Patient was found to have temperature of 102.7 on November 11 on one reading and 101.6 on November 13. He underwent a chest x-ray that revealed no active cardiopulmonary disease. Abdominal x-ray shows distended and dilated bowels with gas consistent with ileus or partial mechanical obstruction. No change compared to last exam. Ultrasound of the abdomen and pelvis reveals suboptimal study. No ascites evident. Severe right-sided hydronephrosis redemonstrated. New [id number] left-sided hydronephrosis suspected. Influenza testing negative. Yesterday, patient was started on cefepime and vancomycin. Patient denies having any fever or chills today. He apparently is eating very little. He is not interested in taking any protein supplements including Ensure, [place] instant breakfast or Magic cups. Dietitian is attempting to supply a protein rich diet for him with limitations. Patient is only getting up to the bathroom rarely. He is mostly staying in bed. He complains of significant weakness. He denies having any pain with urination or increased frequency. He had Joyner catheter placed for retention. He has generalized abdominal pain which is been chronic. He denies suprapubic pain and flank pain. He states he is tolerating a diet and plan with Dr. Sebastian is to monitor tolerance of his diet over the weekend. Patient has verbalized to staff yesterday and the day before that he does not want to undergo surgery. Hospice has been addressed with the patient from oncology on this admission and previous admission and patient is declining. Revisited today and patient also states he is not ready for hospice and did not want hospice informational meeting. 11/16/2018 patient is starting to feel somewhat better, pain is problematic and radiating to the right lower extremity. Has been seen by urology without plans for intervention, it is thought that the urinary retention was resulting in the new right-sided hydronephrosis. They plan to follow in the outpatient setting. Tolerating antibiotic therapy well with the Unasyn for the enterococcus urinary tract infection. 11/17/2018 patient is feeling slightly better today. The pain to the right leg, likely related to tumor mass in the pelvis seems to be slightly improved today. He is not having further fevers or chills. However is having difficulty with ambulation and ongoing weakness. 11/19/2018 patient resting well, has abdominal pain but comfortable, looks forward to rehab today. Objective - Vital Signs Vital signs: Vital Signs Temp 98.8 F 11/19/18 13:00 Pulse 80 11/19/18 16:00 Resp 16 11/19/18 16:00 BP 96/57 11/19/18 13:00 Pulse Ox 97 11/19/18 13:00 Intake & Output 11/19/18 11/19/18 11/20/18 06:59 18:59 06:59 Intake Total 480 Output Total 900 2200 Balance -900 -1720 Weight 77.5 kg Intake: Oral 480 Output: Urine 900 2200 Uretheral (Joyner) 900 200 Other: Voiding Method Indwelling Catheter Bedpan Diaper # Voids 2 - Exam Gen: This is a thin 58-year-old male. He is resting in bed and appears to be comfortable and in no acute distress. HEENT: Head is atraumatic, normocephalic. Pupils equal, round. Sclerae is anicteric. Oral mucous membranes are moist. Lesions noted on the soft palate and tongue. NECK: Supple. No JVD. No lymphadenopathy. No thyromegaly. LUNGS: Clear to auscultation. No wheezes or rhonchi. No intercostal retractions. HEART: Regular rate and rhythm. No murmur. ABDOMEN: Slightly distended. Soft. Bowel sounds are present. No masses. No tenderness. Joyner with dark orange urine EXTREMITIES: No pedal edema. No calf tenderness. Dorsalis pedis +1 bilatera lly. NEUROLOGICAL: Patient is awake, alert and oriented x3. - Labs CBC & Chem 7: 11/19/18 07:06 11/19/18 07:06 Labs: Abnormal Lab Results - Last 24 Hours (Table) 11/19/18 11/19/18 Range/Units 07:06 07:06 RBC 2.98 L (4.30-5.90) m/uL Hgb 7.4 L (13.0-17.5) gm/dL Hct 25.5 L (39.0-53.0) % MCH 24.8 L (25.0-35.0) pg MCHC 29.0 L (31.0-37.0) g/dL RDW 17.6 H (11.5-15.5) % Potassium 5.2 H (3.5-5.1) mmol/L Chloride 108 H (98-107) mmol/L BUN 21 H (9-20) mg/dL Phosphorus 4.7 H (2.5-4.5) mg/dL AST 290 H (17-59) U/L ALT 225 H (21-72) U/L Alkaline Phosphatase 691 H (38-126) U/L Albumin 2.7 L (3.5-5.0) g/dL Laboratory Results WBC 10.1 k/uL (3.8-10.6) 11/19/18 07:06 RBC 2.98 m/uL (4.30-5.90) L 11/19/18 07:06 Hgb 7.4 gm/dL (13.0-17.5) L 11/19/18 07:06 Hct 25.5 % (39.0-53.0) L 11/19/18 07:06 MCV 85.6 fL (80.0-100.0) 11/19/18 07:06 MCH 24.8 pg (25.0-35.0) L 11/19/18 07:06 MCHC 29.0 g/dL (31.0-37.0) L 11/19/18 07:06 RDW 17.6 % (11.5-15.5) H 11/19/18 07:06 Plt Count 288 k/uL (150-450) 11/19/18 07:06 Neutrophils % 75 % 11/17/18 07:18 Neutrophils % (Manual) 67 % 11/15/18 07:08 Band Neutrophils % 1 % 11/15/18 07:08 Lymphocytes % 11 % 11/17/18 07:18 Lymphocytes % (Manual) 16 % 11/15/18 07:08 Monocytes % 9 % 11/17/18 07:18 Monocytes % (Manual) 13 % 11/15/18 07:08 Eosinophils % 2 % 11/17/18 07:18 Eosinophils % (Manual) 5 % 11/15/18 07:08 Basophils % 1 % 11/17/18 07:18 Myelocytes % 1 % 11/15/18 07:08 Neutrophils # 6.6 k/uL (1.3-7.7) 11/17/18 07:18 Neutrophils # (Manual) 3.40 k/uL (1.3-7.7) 11/15/18 07:08 Lymphocytes # 1.0 k/uL (1.0-4.8) 11/17/18 07:18 Lymphocytes # (Manual) 0.80 k/uL (1.0-4.8) L 11/15/18 07:08 Monocytes # 0.8 k/uL (0-1.0) 11/17/18 07:18 Monocytes # (Manual) 0.65 k/uL (0-1.0) 11/15/18 07:08 Eosinophils # 0.2 k/uL (0-0.7) 11/17/18 07:18 Eosinophils # (Manual) 0.25 k/uL (0-0.7) 11/15/18 07:08 Basophils # 0.1 k/uL (0-0.2) 11/17/18 07:18 Myelocytes # (Manual) 0.05 k/uL (0) H 11/15/18 07:08 Nucleated RBCs 0 /100 WBC (0-0) 11/15/18 07:08 Manual Slide Review Performed 11/15/18 07:08 Hypochromasia Marked 11/19/18 07:06 Poikilocytosis Slight 11/16/18 07:09 Anisocytosis Slight 11/19/18 07:06 Microcytosis Slight 11/11/18 17:30 PT 11.8 sec (9.0-12.0) 11/11/18 17:30 INR 1.1 (<1.2) 11/11/18 17:30 APTT 30.0 sec (22.0-30.0) 11/11/18 17:30 Sodium 140 mmol/L (137-145) 11/19/18 07:06 Potassium 5.2 mmol/L (3.5-5.1) H 11/19/18 07:06 Chloride 108 mmol/L (98-107) H 11/19/18 07:06 Carbon Dioxide 24 mmol/L (22-30) 11/19/18 07:06 Anion Gap 8 mmol/L 11/19/18 07:06 BUN 21 mg/dL (9-20) H 11/19/18 07:06 Creatinine 0.84 mg/dL (0.66-1.25) 11/19/18 07:06 Est GFR (CKD-EPI)AfAm >90 (>60 ml/min/1.73 sqM) 11/19/18 07:06 Est GFR (CKD-EPI)NonAf >90 (>60 ml/min/1.73 sqM) 11/19/18 07:06 Glucose 75 mg/dL (74-99) 11/19/18 07:06 POC Glucose (mg/dL) 87 mg/dL (75-99) 11/19/18 05:36 POC Glu Sodium Chlorite Operator ID Klaudia Espitia 11/19/18 05:36 Plasma Lactic Acid Ruel 1.2 mmol/L (0.7-2.0) 11/07/18 13:38 Calcium 8.4 mg/dL (8.4-10.2) 11/19/18 07:06 Ionized Calcium Mario 5.0 mg/dL (4.5-5.3) 11/19/18 07:06 Phosphorus 4.7 mg/dL (2.5-4.5) H 11/19/18 07:06 Magnesium 2.2 mg/dL (1.6-2.3) 11/19/18 07:06 Total Bilirubin 1.1 mg/dL (0.2-1.3) 11/19/18 07:06 AST 290 U/L (17-59) H 11/19/18 07:06 ALT 225 U/L (21-72) H 11/19/18 07:06 Alkaline Phosphatase 691 U/L (38-126) H 11/19/18 07:06 Troponin I <0.012 ng/mL (0.000-0.034) 11/07/18 13:38 Total Protein 6.6 g/dL (6.3-8.2) 11/19/18 07:06 Albumin 2.7 g/dL (3.5-5.0) L 11/19/18 07:06 Triglycerides 129 mg/dL (<150) 11/19/18 07:06 Carcinoembryonic Ag 11.7 ng/mL (0.0-4.9) H 11/11/18 08:37 Urine Color Yellow 11/12/18 20:55 Urine Appearance Cloudy (Clear) 11/12/18 20:55 Urine pH 6.0 (5.0-8.0) 11/12/18 20:55 Ur Specific [place] 1.019 (1.001-1.035) 11/12/18 20:55 Urine Protein 1+ (Negative) H 11/12/18 20:55 Urine Glucose (UA) Negative (Negative) 11/12/18 20:55 Urine Ketones Negative (Negative) 11/12/18 20:55 Urine Blood Moderate (Negative) H 11/12/18 20:55 Urine Nitrite Negative (Negative) 11/12/18 20:55 Urine Bilirubin 1+ (Negative) H 11/12/18 20:55 Urine Urobilinogen <2.0 mg/dL (<2.0) 11/12/18 20:55 Ur Leukocyte Esterase Large (Negative) H 11/12/18 20:55 Urine RBC 5 /hpf (0-5) 11/12/18 20:55 Urine WBC 42 /hpf (0-5) H 11/12/18 20:55 Urine WBC Clumps Few /hpf (None) H 11/11/18 22:23 Ur Squamous Epith Cells 1 /hpf (0-4) 11/11/18 22:23 Amorphous Sediment Occasional /hpf (None) H 11/08/18 09:00 Urine Bacteria Rare /hpf (None) H 11/12/18 20:55 Urine Mucus Rare /hpf (None) H 11/12/18 20:55 Influenza Type A RNA Not Detected (Not Detectd) 11/12/18 19:05 Influenza Type B (PCR) Not Detected (Not Detectd) 11/12/18 19:05 Blood Type O Positive 11/15/18 17:25 Blood Type Confirm O Positive 11/11/18 17:30 Blood Type Recheck No 11/15/18 17:25 Antibody Screen NEGATIVE 11/15/18 17:25 Crossmatch See Detail 11/15/18 17:25 Spec Expiration Date 11/18/2018 0062 11/15/18 17:25 Microbiology 11/11/18 23:37 Blood Blood Culture - Final No Growth after 144 hours 11/11/18 22:45 Blood Blood Culture - Final No Growth after 144 hours 11/11/18 22:23 Urine,Voided Urine Culture - Final Enterococcus faecalis 11/07/18 13:38 Blood Blood Culture - Final No Growth after 144 hours Assessment and Plan (1) Primary colon cancer without distant metastasis (M0) Status: Acute Code(s): C18.9 - MALIGNANT NEOPLASM OF COLON, UNSPECIFIED SNOMED Code(s): 14909989 (2) Anastomotic stricture of colorectal region Status: Acute Priority: High Code(s): K91.30 - POSTPROC INTESTINAL OBST, UNSP TO PARTIAL VERSUS COMPLETE SNOMED Code(s): 421555573 (3) Enterococcus UTI Narrative/Plan: 58-year-old male who has the known history of adenocarcinoma of the sigmoid colon was been in hospital for several days and very poorly overall. He is now developed fevers up to 101.6 and felt quite poorly overall. He is receiving TPN with his obstructive problem. He also has a known history of the chronic right hydronephrosis that could not be stented per urology. No evidence concerns to new obstructions in the left ureter. The patient is noted feels very poorly overall this pain is better than it was when he first presented hospital. Urine cultures become available and Enterococcus faecalis and consequently antibiotic therapy is now transitioned to ampicillin sulbactam 3 g IV piggyback every 6 hours for a pathogen which also give us coverage for any intra-abdominal pathology. 11/16/2018 patient is feeling slightly better in some ways but is having some flare of his pain to his right lower extremity is likely from tumor pressing on pelvic nerves. Patient remains on TPN and has seemed to have a good response to the antibiotic therapy of Unasyn for the enterococcal urinary tract infection. Would like to arrange 7 days of antibiotic therapy the time of his discharge in the next day with Unasyn. We'll work with the discharge planners to determine the possibility of this in the outpatient setting. 11/17/2018 patient feels a little better today. Pain seems to be a bit better controlled and he does not voice other new complaints. The patient's is present in the plans are discussed. Case management is also involved. The patient is still quite weak and the patient's is very concerned about home intravenous antibiotic therapy. Thus we'll work toward transition to rehab for completion of antibiotic therapy, rehabilitation services to improve his strength to have a more independent at the time of his discharge to home. It has been related there are difficulties obtaining the Unasyn antibiotic therapy. For home, hopefully will be able available at the rehab facility. If not we'll transition to piperacillin tazobactam. Plan the 7 days of therapy at the rehab center given the patient's complex history any obstructive process to the urinary system. 11/19/2018 patient improving and is ready for discharge to rehab. 7 days of zosyn planned at the [facility] for the UTI and obstruction symptoms of colon. Oncology working toward palliative care. Status: Acute Code(s): N39.0 - URINARY TRACT INFECTION, SITE NOT SPECIFIED; B95.2 - ENTEROCOCCUS THE CAUSE OF DISEASES CLASSIFIED ELSEWHERE SNOMED Code(s): 328281728463646
== END 2018-11-19 16:00 | DRG 388 ==
LOC: EC 12:28 → 3NMEDONC 15:31
PROVIDERS: ADMIT Internal Medicine; ATTEND Internal Medicine
PROC: BD14YZZ Fluoroscopy of Colon using Other Contrast (ICD-10-PCS; principal; 2018-11-09)
PROC: 0DBP8ZX Excision of Rectum, Via Natural or Artificial Opening Endoscopic, Diagnostic (ICD-10-PCS; 2018-11-10)
DX: K56.690 Other partial intestinal obstruction (principal); E43 Unspecified severe protein-calorie malnutrition; C19 Malignant neoplasm of rectosigmoid junction; C79.51 Secondary malignant neoplasm of bone; N13.1 Hydronephrosis with ureteral stricture, not elsewhere classified; N17.9 Acute kidney failure, unspecified; N39.0 Urinary tract infection, site not specified; D64.81 Anemia due to antineoplastic chemotherapy; B95.2 Enterococcus as the cause of diseases classified elsewhere; D63.0 Anemia in neoplastic disease; E86.0 Dehydration; N32.0 Bladder-neck obstruction; R32 Unspecified urinary incontinence; T45.1X5A Adverse effect of antineoplastic and immunosuppressive drugs, initial encounter; Z79.01 Long term (current) use of anticoagulants; Z79.899 Other long term (current) drug therapy; Z80.6 Family history of leukemia; Z86.718 Personal history of other venous thrombosis and embolism; Z86.010 Personal history of colon polyps; Z90.49 Acquired absence of other specified parts of digestive tract; Z87.440 Personal history of urinary (tract) infections; Z88.8 Allergy status to other drugs, medicaments and biological substances; Z79.2 Long term (current) use of antibiotics; Z71.3 Dietary counseling and surveillance; G62.9 Polyneuropathy, unspecified
CPT/HCPCS: 36415; 45331; 71045; 71046; 74018; 74019; 74270; 76700; 76857; 80048; 80053; 81001; 82040; 82330; 82378; 83605; 83735; 84100; 84478; 84484; 85025; 85027; 85610; 85730; 86850; 86900; 86901; 86920; 87040; 87077; 87086; 87186; 87502; 88305; 93005; 94760; 96361; 96374; 96376; 99285

== ENCOUNTER 2018-12-16 00:17 | Inpatient (IN) | payer MEDICARE ==
[2018-12-16] MEDS ORDERED: SODIUM CHLORIDE 0.9% 1,000 ML IV STA (00:48)
[2018-12-16] MEDS ORDERED: HYDROmorphone 1 MG/ML 1 ML SYRINGE IVP STA (01:01)
--- NOTE | 2018-12-16 01:10 | ED ---
General Adult HPI - General Chief complaint: Weakness Stated complaint: Nausea Time Seen by Provider: 12/16/18 00:33 Source: patient, family, RN notes reviewed, old records reviewed Mode of arrival: wheelchair Limitations: no limitations - History of Present Illness Initial comments: 58-year-old male history of stage IV colon cancer presents with decreased appetite, nausea, concern for dehydration. Patient has had minimal oral intake over the past several days. No vomiting or diarrhea. No history of fever or chills. He does have some exertional dyspnea and history of anemia requiring transfusion. No active bleeding. Last chemotherapy was October 14. His only pain complaint is right leg pain which has been ongoing for several years and un changed from baseline. Denies chest pain, denies abdominal pain. - Related Data Home Medications Medication Instructions Recorded Confirmed Apixaban [Eliquis] 2.5 mg PO BID 01/11/18 11/07/18 Diphenox-Atrop 2.5-0.025 mg 1 tab PO QID PRN 01/11/18 11/07/18 [Lomotil] Previous Rx's Medication Instructions Recorded Acetaminophen Tab [Tylenol] 650 mg PO Q6HR PRN tab 11/19/18 Gabapentin [Neurontin] 300 mg PO BID #6 cap 11/19/18 Mag Hydrox/Al Hydrox/Simeth 30 ml PO TID cup 11/19/18 [Maalox] Mirtazapine [Remeron] 15 mg PO 1800 #0 tab 11/19/18 Piperacillin-Tazobactam [Zosyn] 3.375 gm IVPB Q8HR #21 bag 11/19/18 Prochlorperazine [Compazine] 10 mg PO Q6H tab 11/19/18 Tamsulosin [Flomax] 0.4 mg PO PC-BRKFST cap.er.24h 11/19/18 diphenhydrAMINE ELIXIR [Benadryl 75 mg PO TID cup 11/19/18 Elixir] oxyCODONE-APAP 10-325MG [Percocet 1 tab PO Q6HR PRN #12 tab 11/19/18 10-325 mg] Allergies Allergy/AdvReac Type Severity Reaction Status Date / Time lorazepam [From Ativan] AdvReac Hallucinati Verified 11/12/18 15:41 ons Review of Systems ROS Statement: Those systems with pertinent positive or pertinent negative responses have been documented in the HPI. ROS Other: All systems not noted in ROS Statement are negative. 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 and that he R kidney hydronephrosis/loss of function because tumor cut off blood supply to that kidney, UTI with sepsis, R leg DVT History of Any Multi-Drug Resistant Organisms: C-DIFF Date of last positivie culture/infection: 2015 MDRO Source:: Bowel Past Surgical History: Bowel Resection, Cholecystectomy Additional Past Surgical History / Comment(s): Colonectomy, R renal stent at [facility]-other attempts to stent had failed and pt had a ureter perforation, colonoscopies Past Anesthesia/Blood Transfusion Reactions: No Reported Reaction Additional Past Anesthesia/Blood Transfusion Reaction / Comment(s): Pt has received blood in past without reaction. Past Psychological History: No Psychological Hx Reported Smoking Status: Never smoker Past Alcohol Use History: None Reported Past Drug Use History: None Reported - Past Family History Brother(s) Family Medical History: Cancer Additional Family Medical History / Comment(s): One brother had leukemia and a nother brother from SIDS Father Additional Family Medical History / Comment(s): Father from a ruptured brain aneurysm at the age of 87yrs. Mother Family Medical History: Unable to Obtain Additional Family Medical History / Comment(s): Pt states mother is 87yrs old and does not go to the doctors. General Exam Limitations: no limitations General appearance: alert, in no apparent distress Head exam: Present: atraumatic, normocephalic Eye exam: Present: normal appearance ENT exam: Present: mucous membranes dry, other (oral thrush) Respiratory exam: Present: normal lung sounds bilaterally. Absent: respiratory distress, wheezes Cardiovascular Exam: Present: normal rhythm, tachycardia GI/Abdominal exam: Present: soft. Absent: distended, tenderness, guarding Extremities exam: Present: normal inspection, normal capillary refill. Absent: pedal edema Neurological exam: Present: alert, oriented X3 Psychiatric exam: Present: normal affect, normal mood Skin exam: Present: warm, dry, intact, pallor. Absent: cyanosis, diaphoretic Course Vital Signs 12/16/18 12/16/18 12/16/18 00:28 01:15 01:30 Temperature 97.6 F Pulse Rate 111 H 104 H 104 H Respiratory 18 18 Rate Blood Pressure 90/65 110/84 108/77 O2 Sat by Pulse 99 100 100 Oximetry 12/16/18 01:45 Temperature Pulse Rate 98 Respiratory 18 Rate Blood Pressure 121/91 O2 Sat by Pulse 100 Oximetry EKG Findings - EKG Comments: EKG Findings:: EKG: Sinus tachycardia with occasional PVC, no ST segment elevation, rate of 104, NC interval 152, QRS duration 68, QTC 452. Medical Decision Making - Medical Decision Making 58-year-old male presenting for evaluation of generalized weakness and dyspnea and fatigue. Patient has history of stage IV colon cancer. His had very poor oral intake. Clinically appears dehydrated. Chest x-ray shows negative for acute cardiopulmonary disease, patient has leukocytosis with 14.9 white cells, hemoglobin is stable and improved from previous. He has a lactic acid of 3.4. Urinalysis is consistent with significant urinary tract infection, greater than 182 white cells and many bacteria. Both urine culture and blood cultures are obtained and are pending. Patient had previous urine culture positive for Enterococcus faecalis. He is initiated on antibiotics, given 2 L normal saline bolus, maintained on IV hydration. Will be admitted for treatment of UTI, dehydration, sepsis with lactic acidosis. - Lab Data Result diagrams: 12/16/18 01:24 12/16/18 01:24 Lab Results 12/16/18 12/16/18 12/16/18 Range/Units 01:24 01:24 01:24 WBC 14.9 H (3.8-10.6) k/uL RBC 3.96 L (4.30-5.90) m/uL Hgb 9.8 L D (13.0-17.5) gm/dL Hct 33.2 L (39.0-53.0) % MCV 83.7 (80.0-100.0) fL MCH 24.7 L (25.0-35.0) pg MCHC 29.6 L (31.0-37.0) g/dL RDW 17.6 H (11.5-15.5) % Plt Count 542 H (150-450) k/uL Neutrophils % 89 % Lymphocytes % 7 % Monocytes % 3 % Eosinophils % 1 % Basophils % 0 % Neutrophils # 13.2 H (1.3-7.7) k/uL Lymphocytes # 1.1 (1.0-4.8) k/uL Monocytes # 0.4 (0-1.0) k/uL Eosinophils # 0.1 (0-0.7) k/uL Basophils # 0.0 (0-0.2) k/uL Hypochromasia Marked Anisocytosis Slight PT (9.0-12.0) sec INR (<1.2) APTT (22.0-30.0) sec Sodium 135 L (137-145) mmol/L Potassium 4.0 (3.5-5.1) mmol/L Chloride 97 L (98-107) mmol/L Carbon Dioxide 20 L (22-30) mmol/L Anion Gap 18 mmol/L BUN 21 H (9-20) mg/dL Creatinine 0.94 (0.66-1.25) mg/dL Est GFR (CKD-EPI)AfAm >90 (>60 ml/min/1.73 sqM) Est GFR (CKD-EPI)NonAf 88 (>60 ml/min/1.73 sqM) Glucose 144 H (74-99) mg/dL Plasma Lactic Acid Ruel 3.4 H* (0.7-2.0) mmol/L Calcium 9.5 (8.4-10.2) mg/dL Magnesium 2.0 (1.6-2.3) mg/dL Total Bilirubin 0.9 (0.2-1.3) mg/dL AST 55 (17-59) U/L ALT 27 (21-72) U/L Alkaline Phosphatase 360 H (38-126) U/L Total Protein 8.6 H (6.3-8.2) g/dL Albumin 3.9 (3.5-5.0) g/dL Urine Color Urine Appearance (Clear) Urine pH (5.0-8.0) Ur Specific [place] (1.001-1.035) Urine Protein (Negative) Urine Glucose (UA) (Negative) Urine Ketones (Negative) Urine Blood (Negative) Urine Nitrite (Negative) Urine Bilirubin (Negative) Urine Urobilinogen (<2.0) mg/dL Ur Leukocyte Esterase (Negative) Urine RBC (0-5) /hpf Urine WBC (0-5) /hpf Urine WBC Clumps (None) /hpf Ur Squamous Epith Cells (0-4) /hpf Urine Bacteria (None) /hpf Hyaline Casts (0-2) /lpf Blood Type Blood Type Recheck Antibody Screen Spec Expiration Date 12/16/18 12/16/18 12/16/18 Range/Units 01:24 01:24 01:45 WBC (3.8-10.6) k/uL RBC (4.30-5.90) m/uL Hgb (13.0-17.5) gm/dL Hct (39.0-53.0) % MCV (80.0-100.0) fL MCH (25.0-35.0) pg MCHC (31.0-37.0) g/dL RDW (11.5-15.5) % Plt Count (150-450) k/uL Neutrophils % % Lymphocytes % % Monocytes % % Eosinophils % % Basophils % % Neutrophils # (1.3-7.7) k/uL Lymphocytes # (1.0-4.8) k/uL Monocytes # (0-1.0) k/uL Eosinophils # (0-0.7) k/uL Basophils # (0-0.2) k/uL Hypochromasia Anisocytosis PT 13.7 H (9.0-12.0) sec INR 1.3 H (<1.2) APTT 32.8 H (22.0-30.0) sec Sodium (137-145) mmol/L Potassium (3.5-5.1) mmol/L Chloride (98-107) mmol/L Carbon Dioxide (22-30) mmol/L Anion Gap mmol/L BUN (9-20) mg/dL Creatinine (0.66-1.25) mg/dL Est GFR (CKD-EPI)AfAm (>60 ml/min/1.73 sqM) Est GFR (CKD-EPI)NonAf (>60 ml/min/1.73 sqM) Glucose (74-99) mg/dL Plasma Lactic Acid Ruel (0.7-2.0) mmol/L Calcium (8.4-10.2) mg/dL Magnesium (1.6-2.3) mg/dL Total Bilirubin (0.2-1.3) mg/dL AST (17-59) U/L ALT (21-72) U/L Alkaline Phosphatase (38-126) U/L Total Protein (6.3-8.2) g/dL Albumin (3.5-5.0) g/dL Urine Color Yellow Urine Appearance Cloudy (Clear) Urine pH 5.5 (5.0-8.0) Ur Specific [place] 1.031 (1.001-1.035) Urine Protein 2+ H (Negative) Urine Glucose (UA) Negative (Negative) Urine Ketones Negative (Negative) Urine Blood Small H (Negative) Urine Nitrite Negative (Negative) Urine Bilirubin Negative (Negative) Urine Urobilinogen 2.0 (<2.0) mg/dL Ur Leukocyte Esterase Large H (Negative) Urine RBC 22 H (0-5) /hpf Urine WBC >182 H (0-5) /hpf Urine WBC Clumps Moderate H (None) /hpf Ur Squamous Epith Cells 2 (0-4) /hpf Urine Bacteria Many H (None) /hpf Hyaline Casts 183 H (0-2) /lpf Blood Type O Positive Blood Type Recheck No Antibody Screen NEGATIVE Spec Expiration Date 12/19/2018 - 2323 Disposition Clinical Impression: Enterococcus UTI, UTI (urinary tract infection), Dehydration, Colon cancer Disposition: ADMITTED IP TO THIS [facility] Condition: Stable Is patient prescribed a controlled substance at d/c from ED?: No Referrals: Mick Russ MD [Primary Care Provider] - 1-2 days Decision to Admit Reason: Admit from EC Decision Date: 12/16/18 Decision Time: 02:38
[2018-12-16 01:33] LABS: Anisocytosis Slight; Basophils % (A) 0 %; Eosinophils # (A) 0.1 k/uL (0-0.7); Eosinophils % (A) 1 %; HCT 33.2 % (39.0-53.0); Hypochromasia Marked; Lymphocytes # (A) 1.1 k/uL (1.0-4.8); Lymphocytes % (A) 7 %; MCH 24.7 pg (25.0-35.0); MCHC 29.6 g/dL (31.0-37.0); MCV 83.7 fL (80.0-100.0); Mean Platelet Volume 6.5; Monocytes # (A) 0.4 k/uL (0-1.0); Monocytes % (A) 3 %; Neutrophils # (A) 13.2 k/uL (1.3-7.7); Neutrophils % (A) 89 %; Platelet Count 542 k/uL (150-450); RBC 3.96 m/uL (4.30-5.90); RDW 17.6 % (11.5-15.5); WBC 14.9 k/uL (3.8-10.6)
[2018-12-16 01:37] LABS: HGB 9.8 gm/dL (13.0-17.5)
[2018-12-16 01:43] LABS: INR 1.3 (<1.2); Partial Thromboplastin Time 32.8 sec (22.0-30.0); Prothrombin Time 13.7 sec (9.0-12.0)
[2018-12-16 01:46] LABS: ALT 27 U/L (21-72); AST 55 U/L (17-59); Albumin 3.9 g/dL (3.5-5.0); Alkaline Phosphatase 360 U/L (38-126); Anion Gap 18 mmol/L; Blood Urea Nitrogen 21 mg/dL (9-20); Calcium 9.5 mg/dL (8.4-10.2); Carbon Dioxide 20 mmol/L (22-30); Chloride 97 mmol/L (98-107); Glucose 144 mg/dL (74-99); Sodium 135 mmol/L (137-145); Total Bilirubin 0.9 mg/dL (0.2-1.3); Total Protein 8.6 g/dL (6.3-8.2)
[2018-12-16 01:56] LABS: Appearance,Urine Cloudy (Clear); Bacteria,Urine Many /hpf; Bilirubin,Urine Negative (Negative); Blood,Urine Small (Negative); Color,Urine Yellow; Glucose,Urine (UA) Negative (Negative); Hyaline Casts,Urine 183 /lpf (0-2); Ketones,Urine Negative (Negative); Leukocyte Esterase,Urine Large (Negative); Nitrite,Urine Negative (Negative); PH, Urine 5.5 (5.0-8.0); Protein,Urine 2+ (Negative); RBC,Urine 22 /hpf (0-5); Specific Gravity,Urine 1.031 (1.001-1.035); Squamous Epithelial Cell,Urine 2 /hpf (0-4); WBC,Urine >182 /hpf (0-5)
[2018-12-16] MEDS ORDERED: SODIUM CHLORIDE 0.9% 1,000 ML IV ONE (02:02)
[2018-12-16] MEDS ORDERED: cefTRIAXone IN SWFI 1,000 MG/10 ML SYRINGE IVP STA (02:02)
--- NOTE | 2018-12-16 02:04 | XR ---
EXAM: XR Chest, 2 Views CLINICAL HISTORY: ITS.REASON XR Reason: Weakness TECHNIQUE: Frontal and lateral views of the chest. COMPARISON: 11/12/18. FINDINGS: Lungs: Mild perihilar/infrahilar opacities, possible atelectasis. Pleural space: No significant pleural effusion or pneumothorax. Heart: Likely stable cardiomediastinal silhouette. Mediastinum: See above. Bones/joints: No acute fracture. Tubes, lines and devices: Right chest port catheter again noted. Upper abdomen: Elevated right hemidiaphragm with air-filled subdiaphragmatic structure. IMPRESSION: 1. Mild perihilar/infrahilar opacities, possible atelectasis. 2. Elevated right hemidiaphragm with air-filled subdiaphragmatic structure, likely distended colon.
[2018-12-16] MEDS ORDERED: LEVOFLOXACIN 500MG-D5W PMX 500 MG in DEXTROSE/WATER 1 100ML.BAG IVPB STA (02:12)
[2018-12-16] MEDS ORDERED: ACETAMINOPHEN TAB 325 MG TAB PO PRN ×2 (02:33→05:28)
[2018-12-16] MEDS ORDERED: NALOXONE 0.4 MG/ML 1 ML VIAL IV PRN (02:33)
[2018-12-16] MEDS: SODIUM CHLORIDE 0.9% 1,000 ML IV SCH ×2 (03:13→15:54)
[2018-12-16] MEDS: HYDROmorphone 0.5 MG/0.5 ML SYRINGE IVP PRN ×5 (03:14→21:26)
[2018-12-16] MEDS ORDERED: DIPHENOX-ATROP 2.5-0.025 MG 1 EACH TAB PO PRN (05:28)
[2018-12-16] MEDS ORDERED: PROCHLORPERAZINE 10 MG TAB PO SCH (05:30)
[2018-12-16] MEDS: PROCHLORPERAZINE 5 MG TAB PO SCH ×4 (07:33→22:56)
[2018-12-16] MEDS: oxyCODONE-APAP 10-325MG 1 EACH TAB PO PRN ×2 (08:34→20:35)
[2018-12-16] MEDS: MAG HYDROX/AL HYDROX/SIMETH 30 ML CUP PO SCH ×3 (08:34→21:27)
[2018-12-16] MEDS: APIXABAN 2.5 MG TABLET PO SCH ×2 (08:35→20:36)
[2018-12-16] MEDS: TAMSULOSIN 0.4 MG CAP.ER.24H PO SCH (08:35)
[2018-12-16] MEDS: PIPERACILLIN-TAZOBACTAM 3.375 GM VIAL IVPB SCH ×3 (08:35→22:55)
[2018-12-16] MEDS: GABAPENTIN 300 MG CAP PO SCH ×2 (08:35→20:36)
[2018-12-16] MEDS: diphenhydrAMINE 25 MG CAP PO SCH ×3 (08:35→21:27)
[2018-12-16] MEDS: DULoxetine HCL 30 MG CAPSULE.DR PO SCH (11:29)
[2018-12-16] MEDS: ALPRAZolam 0.25 MG TAB PO SCH ×3 (11:29→21:27)
--- NOTE | 2018-12-16 12:30 | P.HPIM ---
History of Present Illness H&P Date: 12/16/18 Chief Complaint: Sepsis, abdominal pain, advanced stage IV colon cancer with metastasis, jeffrey 58-year-old male with history of stage IV colon cancer with metastasis who was hospitalized last 2 weeks ago and ended up going to [facility] had obstructive uropathy along with intractable nausea and vomiting not been able to eat or keep any food down for long time. Also had worsening diarrhea toward and has improved at the time. Patient was sent to [facility] on IV antibiotic with Zosyn to treat positive culture it to his obstructive uropathy and UTI. Patient has done rehab with IV antibiotic improve quite bed and up going home close to 10 days ago. Patient presented to the emergency department at [facility] shortly after midnight on 424 with complaint of abdominal pain significant change mental status severe week tiredness fatigue intractable nausea and no appetite fever or chills and burning with urination along with worsening incontinence. His urine came back positive WBC was mildly elevated lactic acid was 3.4, urine was very positive patient was started on Zosyn this time IV hydration and admitted to the hospital shortly after with above problem. Review of Systems CONSTITUTIONAL: Very debilitated looking in no acute respiratory distress looks older than his age. EYES: No icterus sclerae, no conjunctivitis. EARS, NOSE, MOUTH, THROAT, and FACE: No sore throat, lymphadenopathy, carotid bruits or deformity. RESPIRATORY: No SOB cough or wheezes. CARDIOVASCULAR: Mild tachycardia with no angina. GASTROINTESTINAL: Abdominal pain with nausea no vomiting positive constipation no sign of GI bleed. GENITOURINARY: UTI with obstructive uropathy no sign of stone. INTEGUMENT/BREAST: Negative for any muscular injury with mild osteoarthritis.. HEMATOLOGIC/LYMPHATIC: Advanced stage IV colon cancer with metastasis and o bstructive uropathy caused by the metastasis in the pelvic area. MUSCULOSKELTAL: Negative for Myalgia or arthralgia. NEURLOGICAL: No LOC, Sz or syncope, blurred vision dizziness or abnormality.. BEHAVIORAL/PSYCH: Negative. ENDOCRINE: Negative. 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 and that he R kidney hydronephrosis/loss of function because tumor cut off blood supply to that kidney, UTI with sepsis, R leg DVT History of Any Multi-Drug Resistant Organisms: C-DIFF Date of last positivie culture/infection: 2015 MDRO Source:: Bowel Past Surgical History: Bowel Resection, Cholecystectomy Additional Past Surgical History / Comment(s): Colonectomy, R renal stent at [facility]-other attempts to stent had failed and pt had a ureter perforation, colonoscopies Past Anesthesia/Blood Transfusion Reactions: No Reported Reaction Additional Past Anesthesia/Blood Transfusion Reaction / Comment(s): Pt has received blood in past without reaction. Past Psychological History: No Psychological Hx Reported Additional Psychological History / Comment(s): Pt resides with his spouse. He uses a cane to ambulate. He drives seldom. He is independent. Smoking Status: Never smoker Past Alcohol Use History: None Reported Past Drug Use History: None Reported - Past Family History Brother(s) Family Medical History: Cancer Additional Family Medical History / Comment(s): One brother had leukemia and another brother from SIDS Father Additional Family Medical History / Comment(s): Father from a ruptured brain aneurysm at the age of 87yrs. Mother Family Medical History: Unable to Obtain Additional Family Medical History / Comment(s): Pt states mother is 87yrs old and does not go to the doctors. Medications and Allergies Home Medications Medication Instructions Recorded Confirmed Type Apixaban [Eliquis] 2.5 mg PO BID 01/11/18 12/16/18 History Gabapentin [Neurontin] 300 mg PO BID #6 cap 11/19/18 12/16/18 Rx Tamsulosin [Flomax] 0.4 mg PO PC-BRKFST cap.er.24h 11/19/18 12/16/18 Rx Mirtazapine [Remeron] 15 mg PO HS 12/16/18 12/16/18 History Prochlorperazine [Compazine] 10 mg PO Q6H PRN 12/16/18 12/16/18 History oxyCODONE-APAP 10-325MG [Percocet 1 - 2 tab PO Q6H PRN 12/16/18 12/16/18 History 10-325 mg] Allergies Allergy/AdvReac Type Severity Reaction Status Date / Time lorazepam [From Ativan] AdvReac Hallucinati Verified 12/16/18 10:31 ons Physical Exam Vitals: Vital Signs Temp Pulse Pulse Resp BP BP Pulse Ox 12/16/18 04:22 94 18 12/16/18 03:40 97.7 F 94 18 107/76 99 12/16/18 03:17 97.8 F 92 18 102/66 98 12/16/18 01:45 98 18 121/91 100 12/16/18 01:30 104 H 18 108/77 100 12/16/18 01:15 104 H 110/84 100 12/16/18 00:28 97.6 F 111 H 18 90/65 99 Intake and Output 12/15/18 12/15/18 12/16/18 14:59 22:59 06:59 Other: Weight 72.575 kg General Appearance: Alert, cooperative, no distress, appears older than his age. Neck HEENT: Supple, no lymphadenopathy, no thyroid enlargement, no carotid bruits. Lungs: Clear to auscultation without crackles or wheezes no rhonchi, no deformity. Chest Wall: Chest wall normal expansion with deep inspiration no tenderness and no deformity was found on exam, no costochondral pain or discomfort. Heart: Regular rate and rhythm, S1, S2 positive S3 positive tachycardia. Back: Symmetric, no curvature, ROM normal, no CVA tenderness. Abdomen: Soft distended significant tenderness and lower abdominal region area and mid abdominal area as well with no rebound or rigidity. Extremities: Extremities normal, atraumatic, no cyanosis or edema. Pulses: 2+ and symmetric. Skin: Skin color, texture, tugor normal, no rashes or lesions. Neurologic: Alert oriented x3 cranial nerves II through XII intact, no motor deficit, no abnormal balance or gait. Results CBC & Chem 7: 12/16/18 01:24 12/16/18 01:24 Labs: Abnormal Lab Results - Last 24 Hours (Table) 12/16/18 12/16/18 12/16/18 Range/Units 01:24 01:24 01:24 WBC 14.9 H (3.8-10.6) k/uL RBC 3.96 L (4.30-5.90) m/uL Hgb 9.8 L D (13.0-17.5) gm/dL Hct 33.2 L (39.0-53.0) % MCH 24.7 L (25.0-35.0) pg MCHC 29.6 L (31.0-37.0) g/dL RDW 17.6 H (11.5-15.5) % Plt Count 542 H (150-450) k/uL Neutrophils # 13.2 H (1.3-7.7) k/uL PT (9.0-12.0) sec INR (<1.2) APTT (22.0-30.0) sec Sodium 135 L (137-145) mmol/L Chloride 97 L (98-107) mmol/L Carbon Dioxide 20 L (22-30) mmol/L BUN 21 H (9-20) mg/dL Glucose 144 H (74-99) mg/dL Plasma Lactic Acid Ruel 3.4 H* (0.7-2.0) mmol/L Alkaline Phosphatase 360 H (38-126) U/L Total Protein 8.6 H (6.3-8.2) g/dL Urine Protein (Negative) Urine Blood (Negative) Ur Leukocyte Esterase (Negative) Urine RBC (0-5) /hpf Urine WBC (0-5) /hpf Urine WBC Clumps (None) /hpf Urine Bacteria (None) /hpf Hyaline Casts (0-2) /lpf 12/16/18 12/16/18 Range/Units 01:24 01:45 WBC (3.8-10.6) k/uL RBC (4.30-5.90) m/uL Hgb (13.0-17.5) gm/dL Hct (39.0-53.0) % MCH (25.0-35.0) pg MCHC (31.0-37.0) g/dL RDW (11.5-15.5) % Plt Count (150-450) k/uL Neutrophils # (1.3-7.7) k/uL PT 13.7 H (9.0-12.0) sec INR 1.3 H (<1.2) APTT 32.8 H (22.0-30.0) sec Sodium (137-145) mmol/L Chloride (98-107) mmol/L Carbon Dioxide (22-30) mmol/L BUN (9-20) mg/dL Glucose (74-99) mg/dL Plasma Lactic Acid Ruel (0.7-2.0) mmol/L Alkaline Phosphatase (38-126) U/L Total Protein (6.3-8.2) g/dL Urine Protein 2+ H (Negative) Urine Blood Small H (Negative) Ur Leukocyte Esterase Large H (Negative) Urine RBC 22 H (0-5) /hpf Urine WBC >182 H (0-5) /hpf Urine WBC Clumps Moderate H (None) /hpf Urine Bacteria Many H (None) /hpf Hyaline Casts 183 H (0-2) /lpf Thrombosis Risk Factor Assmnt - DVT/VTE Prophylaxis DVT/VTE Prophylaxis: Pharmacologic Prophylaxis ordered - Choose All That Apply Any of the Below Risk Factors Present?: Yes Each Factor Represents 1 point: Age 41-60 years Thrombosis Risk Factor Assessment Total Risk Factor Score: 1 Thrombosis Risk Factor Assessment Level: Low Risk Assessment and Plan Plan: 1 sepsis: Most likely from urinary tract infection with elevated lactic acid, elevated white blood cell, positive urine test will continue IV antibiotic with Zosyn consult infectious disease waiting for culture and will do urine and blood culture as well. 2 abdominal pain with worsening symptoms: Combination of partial obstruction along with adhesion and metastasis pressure, continue to treat pain, continue hydration consult general surgery. 3 advanced stage IV colon cancer with metastasis: Patient has been off chemotherapy at this point, his with his oncologist about the possibility of immunotherapy or other therapy at this point. 4 obstructive uropathy: With metastasis causing worsening symptom on the left than the right side had seen urology not been able to use stent not been able to do any surgical intervention on at. 5 severe dehydration: Continue IV antibiotics for now. 6 severe anxiety attack panic and severe depression: Patient Remeron will increase to 50 mg bedtime started Xanax 0.25 mg 3 times a day [id number] and add duloxetine 30 mg daily. 7 neuropathy: Mostly chemotherapy related continue gabapentin as before. 8 iron deficiency anemia: Post transfusion blood count is slightly bit better continue iron supplement. 9 chronic pain syndrome: Patient has been on oxycodone 10/325 mg every 4-6 hours as needed. 10 obstructive uropathy and BPH: Continue Flomax 0.4 mg daily no need for any catheter at this point. 11 history of DVT: Still on Eliquis 2.5 mg twice a day 11 DVT prophylaxis: Patient is on anticoagulation. 12 GI prophylaxis: Continue pantoprazole. CODE STATUS: Full code. Admit patient to inpatient status for more than 2 nights.
--- NOTE | 2018-12-16 14:45 | P.CONS ---
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 December 2015 he was positive for DVT and he was started on eliquis. He underwent CT scan of abdomen/pelvis on 02/22/2016 which revealed 9.4x5.5cm mass in righ pelvis causing significant hydronephrosis. Cystoscopy and ureteral stent placement was attempted but stent could not be placed. On 02/27/2016, FNA of the pelvic mass was positive for adenocarcinoma consistent with colon primary. PET scan revealed very large right pelvic mass invading the sacrum with multiple lung lesions and hilar nodes. He had right nephrostomy tube placed at and he was also evaluated by oncology at on 03/14/2016 and recommended systemic therapy first. He completed 10 cycles of mFOLFOX. Repeat PET scan on 09/08/2016 revealed disease progression in his pelvis and he completed 11 cycles of FOLFIRI/Avastin on 02/26/2017 (he declined the last cycle). He started maintenance xeloda/avastin he ended up with bleeding in his kidney and retroperitoneal hemorrhage and treated at [facility]. Repeat PET scan in July 2017 revealed progression of his disease in the pelvis with chronic right hydronephrosis. He has been intermittently on Xeloda/Avastin. In August of this year, he started Avastin/FOLFIRI. He had a recent hospitalization for October 22 through November 03 for abdominal pain and diarrhea secondary to chemotherapy or enteritis and acute kidney injury with dehydration with complaints of generalized abdominal pain, lack of appetite and inability to keep food down. He was treated with TPN and started on Remeron and eventually discharged home. Patient then had a readmission on November 07 through November 19 at which time ID became involved due to enterococcus urinary tract infection was discharged on Zosyn for 7 days. Patient has been discharged from [facility] for proximally 3 weeks it is now complaining of nausea without vomiting, lack of a ppetite and not eating for the past 1 week. Patient denies having any abdominal pain and denies fever at home along with exertional dyspnea. Patient came into [facility] emergency center for evaluation and found to have white count 14.9, hemoglobin 9.8, platelet count 542. Sodium 135, potassium 4.0, chloride 97, CO2 20, BUN 21 creatinine 0.94, blood sugar 144. He was afebrile, heart rate in the low 100s. Initial lactic acid 3.4. Urinalysis cloudy with leukoesterase large, nitrate negative, wbc's greater than 182 in clumps moderate. Patient was provided Levaquin, Rocephin, 2 L of IV fluid and [facility] He is currently on IV antibiotics with Zosyn. Review of Systems All systems: negative Constitutional: Reports anorexia, Reports fatigue, Reports malaise, Reports poor appetite, Reports weakness, Reports weight loss, Denies chills, Denies fever Eyes: denies blurred vision, denies pain Ears, nose, mouth and throat: Denies dental pain, Denies headache, Denies mouth pain, Denies sore throat, Denies vertigo Cardiovascular: Reports decreased exercise tolerance, Reports dyspnea on exertion, Denies chest pain, Denies edema, Denies lightheadedness, Denies shortness of breath, Denies syncope Respiratory: Reports dyspnea, Denies cough, Denies cough with sputum, Denies excessive sputum, Denies hemoptysis, Denies home oxygen Gastrointestinal: Reports loss of appetite, Reports nausea, Denies abdominal pain, Denies diarrhea, Denies vomiting Genitourinary: Reports dysuria, Reports urinary retention Musculoskeletal: Denies myalgias Integumentary: Denies pruritus, Denies rash Neurological: Denies numbness, Denies weakness Psychiatric: Denies anxiety, Denies depression Endocrine: Denies fatigue, Denies weight change 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 and that he R kidney hydronephrosis/loss of function because tumor cut off blood supply to that kidney, UTI with sepsis, R leg DVT History of Any Multi-Drug Resistant Organisms: C-DIFF Year Discovered:: 2016 MDRO Source:: Bowel Past Surgical History: Bowel Resection, Cholecystectomy Additional Past Surgical History / Comment(s): Colonectomy, R renal stent at [facility]-other attempts to stent had failed and pt had a ureter perforation, colonoscopies Past Anesthesia/Blood Transfusion Reactions: No Reported Reaction Additional Past Anesthesia/Blood Transfusion Reaction / Comm: Pt has received blood in past without reaction. Past Psychological History: No Psychological Hx Reported Additional Psychological History / Comment(s): Pt resides with his spouse. He uses a cane to ambulate. He drives seldom. He is independent. Smoking Status: Never smoker Past Alcohol Use History: None Reported Past Drug Use History: None Reported - Past Family History Brother(s) Family Medical History: Cancer Additional Family Medical History / Comment(s): One brother had leukemia and another brother from SIDS Father Additional Family Medical History / Comment(s): Father from a ruptured brain aneurysm at the age of 87yrs. Mother Family Medical History: Unable to Obtain Additional Family Medical History / Comment(s): Pt states mother is 87yrs old and does not go to the doctors. Medications and Allergies Home Medications Medication Instructions Recorded Confirmed Type Apixaban [Eliquis] 2.5 mg PO BID 01/11/18 12/16/18 History Gabapentin [Neurontin] 300 mg PO BID #6 cap 11/19/18 12/16/18 Rx Tamsulosin [Flomax] 0.4 mg PO PC-BRKFST cap.er.24h 11/19/18 12/16/18 Rx Mirtazapine [Remeron] 15 mg PO HS 12/16/18 12/16/18 History Prochlorperazine [Compazine] 10 mg PO Q6H PRN 12/16/18 12/16/18 History oxyCODONE-APAP 10-325MG [Percocet 1 - 2 tab PO Q6H PRN 12/16/18 12/16/18 History 10-325 mg] Allergies Allergy/AdvReac Type Severity Reaction Status Date / Time lorazepam [From Ativan] AdvReac Hallucinati Verified 12/16/18 10:31 ons Physical Exam Vitals: Vital Signs Temp Pulse Pulse Resp BP BP Pulse Ox 12/16/18 09:33 18 12/16/18 08:04 97.5 F L 86 114/79 100 12/16/18 04:22 94 18 12/16/18 03:40 97.7 F 94 18 107/76 99 12/16/18 03:17 97.8 F 92 18 102/66 98 12/16/18 01:45 98 18 121/91 100 12/16/18 01:30 104 H 18 108/77 100 12/16/18 01:15 104 H 110/84 100 12/16/18 00:28 97.6 F 111 H 18 90/65 99 Intake and Output 12/15/18 12/16/18 12/16/18 22:59 06:59 14:59 Other: Weight 72.575 kg Gen: This is a thin cachectic appearing 58-year-old male. He is resting in bed and appears to be uncomfortable but denies abdominal pain. He does complain of anxiety. HEENT: Head is atraumatic, normocephalic. Pupils equal, round. Sclerae is anicteric. NECK: Supple. No JVD. No lymphadenopathy. No thyromegaly. LUNGS: Clear to auscultation. No wheezes or rhonchi. No intercostal retractions. HEART: Regular rate and rhythm. No murmur. ABDOMEN: Soft. Bowel sounds are present. No masses. No tenderness. EXTREMITIES: No pedal edema. No calf tenderness. NEUROLOGICAL: Patient is awake, alert and oriented x3. Cranial nerves 2 through 12 are grossly intact. Results Results: Laboratory Results WBC 14.9 k/uL (3.8-10.6) H 12/16/18 01:24 RBC 3.96 m/uL (4.30-5.90) L 12/16/18 01:24 Hgb 9.8 gm/dL (13.0-17.5) L D 12/16/18 01:24 Hct 33.2 % (39.0-53.0) L 12/16/18 01:24 MCV 83.7 fL (80.0-100.0) 12/16/18 01:24 MCH 24.7 pg (25.0-35.0) L 12/16/18 01:24 MCHC 29.6 g/dL (31.0-37.0) L 12/16/18 01:24 RDW 17.6 % (11.5-15.5) H 12/16/18 01:24 Plt Count 542 k/uL (150-450) H 12/16/18 01:24 Neutrophils % 89 % 12/16/18 01:24 Lymphocytes % 7 % 12/16/18 01:24 Monocytes % 3 % 12/16/18 01:24 Eosinophils % 1 % 12/16/18 01:24 Basophils % 0 % 12/16/18 01:24 Neutrophils # 13.2 k/uL (1.3-7.7) H 12/16/18 01:24 Lymphocytes # 1.1 k/uL (1.0-4.8) 12/16/18 01:24 Monocytes # 0.4 k/uL (0-1.0) 12/16/18 01:24 Eosinophils # 0.1 k/uL (0-0.7) 12/16/18 01:24 Basophils # 0.0 k/uL (0-0.2) 12/16/18 01:24 Hypochromasia Marked 12/16/18 01:24 Anisocytosis Slight 12/16/18 01:24 PT 13.7 sec (9.0-12.0) H 12/16/18 01:24 INR 1.3 (<1.2) H 12/16/18 01:24 APTT 32.8 sec (22.0-30.0) H 12/16/18 01:24 Sodium 135 mmol/L (137-145) L 12/16/18 01:24 Potassium 4.0 mmol/L (3.5-5.1) 12/16/18 01:24 Chloride 97 mmol/L (98-107) L 12/16/18 01:24 Carbon Dioxide 20 mmol/L (22-30) L 12/16/18 01:24 Anion Gap 18 mmol/L 12/16/18 01:24 BUN 21 mg/dL (9-20) H 12/16/18 01:24 Creatinine 0.94 mg/dL (0.66-1.25) 12/16/18 01:24 Est GFR (CKD-EPI)AfAm >90 (>60 ml/min/1.73 sqM) 12/16/18 01:24 Est GFR (CKD-EPI)NonAf 88 (>60 ml/min/1.73 sqM) 12/16/18 01:24 Glucose 144 mg/dL (74-99) H 12/16/18 01:24 Lactic Ac Sepsis Rflx Y 12/16/18 01:52 Plasma Lactic Acid Ruel 2.1 mmol/L (0.7-2.0) H* 12/16/18 05:05 Calcium 9.5 mg/dL (8.4-10.2) 12/16/18 01:24 Magnesium 2.0 mg/dL (1.6-2.3) 12/16/18 01:24 Total Bilirubin 0.9 mg/dL (0.2-1.3) 12/16/18 01:24 AST 55 U/L (17-59) 12/16/18 01:24 ALT 27 U/L (21-72) 12/16/18 01:24 Alkaline Phosphatase 360 U/L (38-126) H 12/16/18 01:24 Total Protein 8.6 g/dL (6.3-8.2) H 12/16/18 01:24 Albumin 3.9 g/dL (3.5-5.0) 12/16/18 01:24 Urine Color Yellow 12/16/18 01:45 Urine Appearance Cloudy (Clear) 12/16/18 01:45 Urine pH 5.5 (5.0-8.0) 12/16/18 01:45 Ur Specific [place] 1.031 (1.001-1.035) 12/16/18 01:45 Urine Protein 2+ (Negative) H 12/16/18 01:45 Urine Glucose (UA) Negative (Negative) 12/16/18 01:45 Urine Ketones Negative (Negative) 12/16/18 01:45 Urine Blood Small (Negative) H 12/16/18 01:45 Urine Nitrite Negative (Negative) 12/16/18 01:45 Urine Bilirubin Negative (Negative) 12/16/18 01:45 Urine Urobilinogen 2.0 mg/dL (<2.0) 12/16/18 01:45 Ur Leukocyte Esterase Large (Negative) H 12/16/18 01:45 Urine RBC 22 /hpf (0-5) H 12/16/18 01:45 Urine WBC >182 /hpf (0-5) H 12/16/18 01:45 Urine WBC Clumps Moderate /hpf (None) H 12/16/18 01:45 Ur Squamous Epith Cells 2 /hpf (0-4) 12/16/18 01:45 Urine Bacteria Many /hpf (None) H 12/16/18 01:45 Hyaline Casts 183 /lpf (0-2) H 12/16/18 01:45 Blood Type O Positive 12/16/18 01:24 Blood Type Recheck No 12/16/18 01:24 Antibody Screen NEGATIVE 12/16/18 01:24 Spec Expiration Date 12/19/2018232312/16/18 01:24 CBC & Chem 7: 12/16/18 01:24 12/16/18 01:24 Labs: Abnormal Lab Results - Last 24 Hours (Table) 12/16/18 12/16/18 12/16/18 Range/Units 01:24 01:24 01:24 WBC 14.9 H (3.8-10.6) k/uL RBC 3.96 L (4.30-5.90) m/uL Hgb 9.8 L D (13.0-17.5) gm/dL Hct 33.2 L (39.0-53.0) % MCH 24.7 L (25.0-35.0) pg MCHC 29.6 L (31.0-37.0) g/dL RDW 17.6 H (11.5-15.5) % Plt Count 542 H (150-450) k/uL Neutrophils # 13.2 H (1.3-7.7) k/uL PT (9.0-12.0) sec INR (<1.2) APTT (22.0-30.0) sec Sodium 135 L (137-145) mmol/L Chloride 97 L (98-107) mmol/L Carbon Dioxide 20 L (22-30) mmol/L BUN 21 H (9-20) mg/dL Glucose 144 H (74-99) mg/dL Plasma Lactic Acid Ruel 3.4 H* (0.7-2.0) mmol/L Alkaline Phosphatase 360 H (38-126) U/L Total Protein 8.6 H (6.3-8.2) g/dL Urine Protein (Negative) Urine Blood (Negative) Ur Leukocyte Esterase (Negative) Urine RBC (0-5) /hpf Urine WBC (0-5) /hpf Urine WBC Clumps (None) /hpf Urine Bacteria (None) /hpf Hyaline Casts (0-2) /lpf 12/16/18 12/16/18 12/16/18 Range/Units 01:24 01:45 05:05 WBC (3.8-10.6) k/uL RBC (4.30-5.90) m/uL Hgb (13.0-17.5) gm/dL Hct (39.0-53.0) % MCH (25.0-35.0) pg MCHC (31.0-37.0) g/dL RDW (11.5-15.5) % Plt Count (150-450) k/uL Neutrophils # (1.3-7.7) k/uL PT 13.7 H (9.0-12.0) sec INR 1.3 H (<1.2) APTT 32.8 H (22.0-30.0) sec Sodium (137-145) mmol/L Chloride (98-107) mmol/L Carbon Dioxide (22-30) mmol/L BUN (9-20) mg/dL Glucose (74-99) mg/dL Plasma Lactic Acid Ruel 2.1 H* (0.7-2.0) mmol/L Alkaline Phosphatase (38-126) U/L Total Protein (6.3-8.2) g/dL Urine Protein 2+ H (Negative) Urine Blood Small H (Negative) Ur Leukocyte Esterase Large H (Negative) Urine RBC 22 H (0-5) /hpf Urine WBC >182 H (0-5) /hpf Urine WBC Clumps Moderate H (None) /hpf Urine Bacteria Many H (None) /hpf Hyaline Casts 183 H (0-2) /lpf Microbiology - Last 24 Hours (Table) 12/16/18 01:45 Urine Culture - Preliminary Urine,Voided Assessment and Plan Plan: This is a 58-year-old male who presented to the hospital with anorexia and nausea, exertional dyspnea with increasing weakness with underlying stage III colon cancer. Patient was recently treated for enterococcus urinary tract infection with known right-sided chronic hydronephrosis and found to have a new left sided hydronephrosis on last admission. Patient is currently on Zosyn which will be continued. Blood cultures are showing no growth after 24 hours. Continue supportive care. Further recommendations as patient progresses. The above dictated assessment and findings were discussed with Dr. Carter. The impression and plan of care have been directed as dictated. Brea Garcia nurse practitioner acting as scribe for Dr. Carter.
[2018-12-16] MEDS: MIRTAZAPINE 15 MG TAB PO SCH (17:56)
[2018-12-16] MEDS ORDERED: MIRTAZAPINE 15 MG TAB PO SCH (18:00)
--- NOTE | 2018-12-16 18:11 | P.CONS ---
History of Present Illness - Reason for Consult Consult date: 12/16/18 advanced colon adenocarcinoma Requesting physician: Frederick Larsen - Chief Complaint weakness, anorexia - History of Present Illness Patient is admitted from home for complaints of weakness, nausea and anorexia. Patient was discharged from [facility] about 3-4 weeks ago, was home for one week after discharge from rehabilitation. During this 1 week timeframe he had 2 falls at home, did not get his PET scan that was scheduled for him to Dr. Tariq's office due to weakness, and had progressive symptoms as stated above. Patient denied having fever, chills, oral irritation, difficulty swallowing, painful swallowing, he does have some early CT mild to moderate abdominal discomfort, he has vomited once, denies dysuria, hematuria, diarrhea or constipation. Malignancy history: Screening colonoscopy in 08/2013 found to have an ulcerated mass in the sigmoid and multiple polyps, biopsy of sigmoid mass was positive for malignancy, CT AP 09/21/13 was negative for any metastases. He underwent subtotal colectomy with ileo-rectal anastomosis on 10/08/13. The surgical pathology revealed an invasive poorly differentiated adenocarcinoma arising in an adenomatous polyp, T2, with 0 /23 nodes involved. Multiple other adenomatous polyps (15) were noted. Genetic testing for FAP and Betancourt syndormes was ordered, but could not be done for insurance reason. Colonoscopy on 05/12/15 revealed tubular adenoma in the rectum which was removed. Did well until December 2015, he presented with pain and swelling of RLE, initial venous doppler was negative for DVT, treated for cellulitis without improvement, repeat doppler was positive for DVT, started on eliquis. CT AP 02/22/16 revealed 9.4 x 5.5cm mass in right pelvis causing significant hydronephrosis, cystoscopy and ureteral stent placement was attempted but stent could not be placed. FNA of the pelvic mass was positive for adenocarcinoma consistent with colon primary. 03/09/16 staging PET revealed very large right pelvic mass, invading the sacrum, multiple lung lesions and hilar nodes. Right nephrostomy tube placed at [facility] 03/11/16, who recommended systemic therapy. 04/08/16 [id number] with significant improvement on treatment f/u imaging, completed 10 cycles of mFOLFOX on 08/20/16. Unfortunately, repeat PET scan in August 2016 revealed disease progression in the pelvis. Patient was started on Avastin/FOLFIRI 09/2016. Treatment PET scan follow-up revealed stable disease and he went on to complete 11 cycles of FOLFIRI/Avastin in February 2017. He started maintenance Xeloda/Avastin in March 2017. He unfortunately had retroperitoneal hemorrhage as well as kidney hemorrhage which held his treatment, he was treated at [facility] and discharged in June 2017. Repeat PET scan on 08/03/17 revealed possible progression of his disease in pelvis, chronic right hydronephrosis. He resumed treatment in June but, treatment was held in December 2017 due to recurrent polynephritis. Treatment follow-up PET in January 2018 showed stable disease, patient decided to take a break from therapy until disease progression. In July 2018 repeat PET showed evidence of disease progression. August 2018 he started Avastin/FOLFIRI. Patient has had 2 prolonged admissions at [facility] since September, patient has also spent time in rehabilitation with no significant improvement. During his last prolonged admission patient even was placed on TPN for a period of time. It has been discussed with patient and his on numerous occasions his overall poor prognosis and recommendation for hospice care as being a reasonable option. 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 and that he R kidney hydronephrosis/loss of function because tumor cut off blood supply to that kidney, UTI with sepsis, R leg DVT History of Any Multi-Drug Resistant Organisms: C-DIFF Year Discovered:: 2016 MDRO Source:: Bowel Past Surgical History: Bowel Resection, Cholecystectomy Additional Past Surgical History / Comment(s): Colonectomy, R renal stent at [facility]-other attempts to stent had failed and pt had a ureter perforation, colonoscopies Past Anesthesia/Blood Transfusion Reactions: No Reported Reaction Additional Past Anesthesia/Blood Transfusion Reaction / Comm: Pt has received blood in past without reaction. Past Psychological History: No Psychological Hx Reported Additional Psychological History / Comment(s): Pt resides with his spouse. He uses a cane to ambulate. He drives seldom. He is independent. Smoking Status: Never smoker Past Alcohol Use History: None Reported Past Drug Use History: None Reported - Past Family History Brother(s) Family Medical History: Cancer Additional Family Medical History / Comment(s): One brother had leukemia and another brother from SIDS Father Additional Family Medical History / Comment(s): Father from a ruptured brain aneurysm at the age of 87yrs. Mother Family Medical History: Unable to Obtain Additional Family Medical History / Comment(s): Pt states mother is 87yrs old and does not go to the doctors. Medications and Allergies Home Medications Medication Instructions Recorded Confirmed Type Apixaban [Eliquis] 2.5 mg PO BID 01/11/18 12/16/18 History Gabapentin [Neurontin] 300 mg PO BID #6 cap 11/19/18 12/16/18 Rx Tamsulosin [Flomax] 0.4 mg PO PC-BRKFST cap.er.24h 11/19/18 12/16/18 Rx Mirtazapine [Remeron] 15 mg PO HS 12/16/18 12/16/18 History Prochlorperazine [Compazine] 10 mg PO Q6H PRN 12/16/18 12/16/18 History oxyCODONE-APAP 10-325MG [Percocet 1 - 2 tab PO Q6H PRN 12/16/18 12/16/18 History 10-325 mg] Allergies Allergy/AdvReac Type Severity Reaction Status Date / Time lorazepam [From Ativan] AdvReac Hallucinati Verified 12/16/18 10:31 ons Physical Exam Vitals: Vital Signs Temp Pulse Pulse Resp BP BP Pulse Ox 12/16/18 09:33 18 12/16/18 08:04 97.5 F L 86 114/79 100 12/16/18 04:22 94 18 12/16/18 03:40 97.7 F 94 18 107/76 99 12/16/18 03:17 97.8 F 92 18 102/66 98 12/16/18 01:45 98 18 121/91 100 12/16/18 01:30 104 H 18 108/77 100 12/16/18 01:15 104 H 110/84 100 12/16/18 00:28 97.6 F 111 H 18 90/65 99 Intake and Output 12/16/18 12/16/18 12/16/18 06:59 14:59 22:59 Intake Total 700 Balance 700 Intake: Intake, IV Titration 300 Amount Sodium Chloride 0.9% 1, 300 000 ml @ 75 mls/hr IV . [id number] [facility] Rx#:[id number] Oral 400 Other: Weight 72.575 kg Well-developed Thin[place], frail male laying in bed, alert to voice, oriented to self, place, time and situation he has difficulty moving his own body weight, muscle wasting is noted in the upper extremities, neck as well as masseter muscles of the face. Patient is generally weak. Oral mucosa is dry, without thrush or lesions, no palpable cervical supraclavicular axillary adenopathy, respirations are even and unlabored bilateral breath sounds are clear to auscultation posteriorly, S1 and S2 no murmur gallop or rub, abdomen is mildly distended, not painful to the touch, no hepatosplenomegaly appreciated, fullness in the lower portion of the abdomen, discomfort in the right lower extremity with palpation in the thigh/groin area, mild swelling, no cyanosis in the extremities. Results CBC & Chem 7: 12/16/18 01:24 12/16/18 01:24 Labs: Abnormal Lab Results - Last 24 Hours (Table) 12/16/18 12/16/18 12/16/18 Range/Units 01:24 01:24 01:24 WBC 14.9 H (3.8-10.6) k/uL RBC 3.96 L (4.30-5.90) m/uL Hgb 9.8 L D (13.0-17.5) gm/dL Hct 33.2 L (39.0-53.0) % MCH 24.7 L (25.0-35.0) pg MCHC 29.6 L (31.0-37.0) g/dL RDW 17.6 H (11.5-15.5) % Plt Count 542 H (150-450) k/uL Neutrophils # 13.2 H (1.3-7.7) k/uL PT (9.0-12.0) sec INR (<1.2) APTT (22.0-30.0) sec Sodium 135 L (137-145) mmol/L Chloride 97 L (98-107) mmol/L Carbon Dioxide 20 L (22-30) mmol/L BUN 21 H (9-20) mg/dL Glucose 144 H (74-99) mg/dL Plasma Lactic Acid Ruel 3.4 H* (0.7-2.0) mmol/L Alkaline Phosphatase 360 H (38-126) U/L Total Protein 8.6 H (6.3-8.2) g/dL Urine Protein (Negative) Urine Blood (Negative) Ur Leukocyte Esterase (Negative) Urine RBC (0-5) /hpf Urine WBC (0-5) /hpf Urine WBC Clumps (None) /hpf Urine Bacteria (None) /hpf Hyaline Casts (0-2) /lpf 12/16/18 12/16/18 12/16/18 Range/Units 01:24 01:45 05:05 WBC (3.8-10.6) k/uL RBC (4.30-5.90) m/uL Hgb (13.0-17.5) gm/dL Hct (39.0-53.0) % MCH (25.0-35.0) pg MCHC (31.0-37.0) g/dL RDW (11.5-15.5) % Plt Count (150-450) k/uL Neutrophils # (1.3-7.7) k/uL PT 13.7 H (9.0-12.0) sec INR 1.3 H (<1.2) APTT 32.8 H (22.0-30.0) sec Sodium (137-145) mmol/L Chloride (98-107) mmol/L Carbon Dioxide (22-30) mmol/L BUN (9-20) mg/dL Glucose (74-99) mg/dL Plasma Lactic Acid Ruel 2.1 H* (0.7-2.0) mmol/L Alkaline Phosphatase (38-126) U/L Total Protein (6.3-8.2) g/dL Urine Protein 2+ H (Negative) Urine Blood Small H (Negative) Ur Leukocyte Esterase Large H (Negative) Urine RBC 22 H (0-5) /hpf Urine WBC >182 H (0-5) /hpf Urine WBC Clumps Moderate H (None) /hpf Urine Bacteria Many H (None) /hpf Hyaline Casts 183 H (0-2) /lpf Microbiology - Last 24 Hours (Table) 12/16/18 01:45 Urine Culture - Preliminary Urine,Voided Assessment and Plan (1) Colon cancer Narrative/Plan: Patient was unable to have PET scan as he was too weak. Case was discussed with Dr. Odonnell. Recommendation is for contrast computed tomography scan to thoroughly evaluate patient's malignancy-his previous images were noncontrast and did cause some vacillation in determining if there was actual disease progression. I did discuss briefly with patient the concern that he has had no treatment for quite some time and the suspicion that his malignancy is likely progressing-increased pain, which he had at diagnosis, inability to recover/rehabilitate. After rehabilitation he was unable to sustain himself for 1 week. Patient did verbalize that he understood my discussion with him. Computed tomography scan will be ordered. CEA will be ordered. We will follow up with patient in the morning, will request that patient be available for discussion regarding malignancy and plan of care. Current Visit: Yes Status: Acute Priority: High Code(s): C18.9 - MALIGNANT NEOPLASM OF COLON, UNSPECIFIED SNOMED Code(s): 945797354 (2) Weakness generalized Narrative/Plan: Secondary to malignancy, inability to maintain nutritional status, inability to rehabilitate Current Visit: Yes Status: Acute Priority: High Code(s): R53.1 - WEAKNESS SNOMED Code(s): 63682769 (3) Physical debility Narrative/Plan: Secondary to malignancy and inability to rehabilitate Current Visit: Yes Status: Acute Priority: High Code(s): R53.81 - OTHER MALAISE SNOMED Code(s): 94637978 (4) Leukocytosis Narrative/Plan: Mild, noted to be neutrophils, patient is being treated for urinary tract infection. Current Visit: Yes Status: Acute Priority: Medium Code(s): D72.829 - ELEVATED WHITE BLOOD CELL COUNT, UNSPECIFIED SNOMED Code(s): 999424860 (5) Anemia Narrative/Plan: Mild, hyperchromic, possibly nutritional deficiency, iron deficiency, iron studies have been ordered. Transfuse for hemoglobin less than 7 and less symptomatic. Current Visit: Yes Status: Acute Priority: Medium Code(s): D64.9 - ANEMIA, UNSPECIFIED SNOMED Code(s): 066774848 (6) Thrombocytosis Narrative/Plan: Suspect may be related to iron deficiency, iron studies have been ordered Current Visit: Yes Status: Acute Priority: Medium Code(s): D47.3 - ESSENTIAL (HEMORRHAGIC) THROMBOCYTHEMIA SNOMED Code(s): 0332842
--- NOTE | 2018-12-16 21:28 | P.CON ---
Consult Note - . Consult date: 12/16/18 Assessment/Plan:: his is a 58-year-old male patient with history of adenocarcinoma of the sigmoid status post subtotal colectomy with ileorectal anastomosis in 2013, colonoscopy on 05/12/2015 revealed tibular adenoma in the rectum which was rem carol. December 2015 he was positive for DVT and he was started on eliquis. He underwent CT scan of abdomen/pelvis on 02/22/2016 which revealed 9.4x5.5cm mass in righ pelvis causing significant hydronephrosis. Cystoscopy and ureteral stent placement was attempted but stent could not be placed. On 02/27/2016, FNA of the pelvic mass was positive for adenocarcinoma consistent with colon primary. PET scan revealed very large right pelvic mass invading the sacrum with multiple lung lesions and hilar nodes. He had right nephrostomy tube placed at and he was also evaluated by oncology at on 03/14/2016 and recommended systemic therapy first. He completed 10 cycles of mFOLFOX. Repeat PET scan on 09/08/2016 revealed disease progression in his pelvis and he completed 11 cycles of FOLFIRI/Avastin on 02/26/2017 (he declined the last cycle). He started maintenance xeloda/avastin he ended up with bleeding in his kidney and retroperitoneal hemorrhage and treated at [facility]. Repeat PET scan in Jul revealed progression of his disease in the pelvis with chronic right hydronephrosis. He has been intermittently on Xeloda/Avastin. In August of this year, he started Avastin/FOLFIRI. He had a recent hospitalization for October 22 through November 03 for abdominal pain and diarrhea secondary to chemotherapy or enteritis and acute kidney injury with dehydration with complaints of generalized abdominal pain, lack of appetite and inability to keep food down. He was treated with TPN and started on Remeron and eventually discharged home. Patient then had a readmission on November 07 through November 19 at which time ID became involved due to enterococcus urinary tract infection was discharged on Zosyn for 7 days. Patient has been discharged from [facility] for proximally 3 weeks it is now complaining of nausea without vomiting, lack of appetite and not eating for the past 1 week. Patient denies having any abdominal pain and denies fever at home along with exertional dyspnea. Patient came into [facility] emergency center for evaluation and found to have white count 14.9, hemoglobin 9.8, platelet count 542. Sodium 135, potassium 4.0, chloride 97, CO2 20, BUN 21 creatinine 0.94, blood sugar 144. He was afebrile, heart rate in the low 100s. Initial lactic acid 3.4. Urinalysis cloudy with leukoesterase large, nitrate negative, wbc's greater than 182 in clumps moderate. Patient was provided Levaquin, Rocephin, 2 L of IV fluid and [facility]. He is currently on IV antibiotics with Zosyn. Please see the consult note dictated by nurse practitioner Mrs. Brea Garcia. The patient has been evaluated by the oncology team also, and continue to work toward most appropriate treatment protocol and plan. At this time likely has a urinary tract infection and constantly and like therapy directed against gram- negative pathogens and enterococcus is being utilized, Zosyn is an excellent choice for now while cultures are being finalized. Is noted the prognosis is extremely poor. Negative evaluation, assessment and plan is dictated by nurse practitioner Mrs. Brea Garcia.
[2018-12-17] MEDS: oxyCODONE-APAP 10-325MG 1 EACH TAB PO PRN ×3 (01:35→19:09)
[2018-12-17] MEDS: SODIUM CHLORIDE 0.9% 1,000 ML IV SCH ×2 (04:35→17:36)
[2018-12-17] MEDS: HYDROmorphone 0.5 MG/0.5 ML SYRINGE IVP PRN ×2 (04:50→08:36)
[2018-12-17] MEDS: PROCHLORPERAZINE 5 MG TAB PO SCH ×4 (04:50→21:15)
[2018-12-17] MEDS: IOPAMIDOL-300 CONTRAST 30 ML VIAL (ORAL USE) PO PRN ×2 (08:15→09:19)
[2018-12-17] MEDS: DULoxetine HCL 30 MG CAPSULE.DR PO SCH (08:35)
[2018-12-17] MEDS: ALPRAZolam 0.25 MG TAB PO SCH ×3 (08:35→21:24)
[2018-12-17] MEDS: GABAPENTIN 300 MG CAP PO SCH ×2 (08:35→21:16)
[2018-12-17] MEDS: TAMSULOSIN 0.4 MG CAP.ER.24H PO SCH (08:35)
[2018-12-17] MEDS: APIXABAN 2.5 MG TABLET PO SCH ×2 (08:35→21:16)
[2018-12-17] MEDS: PIPERACILLIN-TAZOBACTAM 3.375 GM VIAL IVPB SCH ×3 (08:36→23:23)
[2018-12-17] MEDS: diphenhydrAMINE 25 MG CAP PO SCH ×3 (08:37→21:24)
[2018-12-17] MEDS: MAG HYDROX/AL HYDROX/SIMETH 30 ML CUP PO SCH ×3 (08:37→21:24)
[2018-12-17] MEDS: HYDROmorphone 1 MG/ML 1 ML SYRINGE IVP PRN ×3 (11:18→23:23)
--- NOTE | 2018-12-17 15:11 | P.PN ---
Subjective Progress Note Date: 12/17/18 58-year-old male with history of stage IV colon cancer with metastasis who was hospitalized last 2 weeks ago and ended up going to [facility] had obstructive uropathy along with intractable nausea and vomiting not been able to eat or keep any food down for long time. Also had worsening diarrhea toward and has improved at the time. Patient was sent to [facility] on IV antibiotic with Zosyn to treat positive culture it to his obstructive uropathy and UTI. Patient has done rehab with IV antibiotic improve quite bed and up going home close to 10 days ago. Patient presented to the emergency department at [facility] shortly after midnight on 424 with complaint of abdominal pain significant change mental status severe week tiredness fatigue intractable nausea and no appetite fever or chills and burning with urination along with worsening incontinence. His urine came back positive WBC was mildly elevated lactic acid was 3.4, urine was very positive patient was started on Zosyn this time IV hydration and admitted to the hospital shortly after with above problem. 12/17: Patient has been seen by oncology with recommendations for CT which was subsequently canceled and it is suspected that the malignancy is progressing as patient has been without treatment for some time. CEA ordered and is elevated at 31.8. His previous CEA on November 11 was 11.7. Patient has been seen by Dr. Jeevan zelaya for likely urinary tract infection and plan to continue Zosyn. Urine culture is in progress and blood culture showing no growth after 24 hours. At this time, long discussion with the patient and his regarding his current condition. Patient has been made no code. Patient is little interaction today and mostly listening. Patient's verbalizes privately that she is unable to manage him at home and she is not getting any sleep. She also states that she only wants patient to be comfortable and is concerned that he is always in pain. She'll plan to discuss this issue with oncology. She would like to investigate patient discharged to [facility] but concerned about financial piece. We will plan for [facility] to meet with the patient to discuss financial concern. 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 She would also like to complete treatment for his urinary tract infection. Review of Systems CONSTITUTIONAL: Very debilitated looking, positive weakness, lethargy EYES: No icterus sclerae, no conjunctivitis. EARS, NOSE, MOUTH, THROAT, and FACE: No sore throat, lymphadenopathy, carotid bruits or deformity. RESPIRATORY: No SOB cough or wheezes. CARDIOVASCULAR: Mild tachycardia with no angina. GASTROINTESTINAL: Abdominal pain with nausea no vomiting positive constipation no sign of GI bleed. GENITOURINARY: UTI with obstructive uropathy no sign of stone. INTEGUMENT/BREAST: Negative for any muscular injury with mild osteoarthritis.. HEMATOLOGIC/LYMPHATIC: Advanced stage IV colon cancer with metastasis and obstructive uropathy caused by the metastasis in the pelvic area. MUSCULOSKELTAL: Negative for Myalgia or arthralgia. NEURLOGICAL: No LOC, Sz or syncope, blurred vision dizziness or abnormality.. BEHAVIORAL/PSYCH: Negative. ENDOCRINE: Negative. Objective - Vital Signs Vital signs: Vital Signs Temp 97.5 F L 12/17/18 07:00 Pulse 66 12/17/18 07:00 Resp 16 12/17/18 07:00 BP 138/78 12/17/18 07:00 Pulse Ox 90 L 12/17/18 07:00 Intake & Output 12/16/18 12/17/18 12/17/18 18:59 06:59 18:59 Intake Total 700 690 Balance 700 690 Intake: Intake, IV Titration 300 150 Amount Sodium Chloride 0.9% 1, 300 150 000 ml @ 75 mls/hr IV . [id number] [facility] Rx#:[id number] Oral 400 540 Other: Voiding Method Bedside Commode - Exam General Appearance: Alert, cooperative, no distress, appears older than his age. Patient appears more relaxed today from yesterday. Neck HEENT: Supple, no lymphadenopathy, no thyroid enlargement, no carotid bruits. Lungs: Clear to auscultation without crackles or wheezes no rhonchi, no deformity. Chest Wall: Chest wall normal expansion with deep inspiration no tenderness and no deformity was found on exam, no costochondral pain or discomfort. Heart: Regular rate and rhythm, S1, S2 positive S3 positive tachycardia. Back: Symmetric, no curvature, ROM normal, no CVA tenderness. Abdomen: Soft distended significant tenderness and lower abdominal region area and mid abdominal area as well with no rebound or rigidity. Extremities: Extremities normal, atraumatic, no cyanosis or edema. Pulses: 2+ and symmetric. Skin: Skin color, texture, tugor normal, no rashes or lesions. Neurologic: Alert oriented x3 cranial nerves II through XII intact, no motor deficit, no abnormal balance or gait. - Labs CBC & Chem 7: 12/16/18 01:24 12/16/18 01:24 Labs: Abnormal Lab Results - Last 24 Hours (Table) 12/16/18 Range/Units 01:24 Carcinoembryonic Ag 31.8 H (0.0-4.9) ng/mL Microbiology - Last 24 Hours (Table) 12/16/18 02:28 Blood Culture - Preliminary Blood No Growth after 24 hours 12/16/18 01:45 Urine Culture - Preliminary Urine,Voided Assessment and Plan Plan: 1 sepsis/leukocytosis: Most likely from urinary tract infection with elevated lactic acid, elevated white blood cell, positive urine test will continue IV antibiotic with Zosyn consult infectious disease waiting for culture report. Consult with Dr. Carter appreciated. 2 abdominal pain with worsening symptoms: Combination of partial obstruction along with adhesion and metastasis pressure, continue to treat pain, continue hydration consult general surgery. 3 advanced stage IV colon cancer with metastasis: Patient has been off chemoth erapy at this point, oncology consult appreciated. 4 obstructive uropathy: With metastasis causing worsening symptom on the left than the right side had seen urology not been able to use stent not been able to do any surgical intervention. 5 severe dehydration: Continue IV fluids for now. 6 severe anxiety attack panic and severe recurrent depression: Patient Remeron will increase to 50 mg bedtime started Xanax 0.25 mg 3 times a day [id number] and add duloxetine 30 mg daily. 7 neuropathy: Mostly chemotherapy related continue gabapentin as before. 8 iron deficiency anemia: Post transfusion blood count is slightly bit better continue iron supplement. 9 chronic pain syndrome: Patient has been on oxycodone 10/325 mg every 4-6 hours as needed. 10 obstructive uropathy and BPH: Continue Flomax 0.4 mg daily no need for any catheter at this point. 11 history of DVT: Still on Eliquis 2.5 mg twice a day 11 DVT prophylaxis: Patient is on anticoagulation. 12 GI prophylaxis: Continue pantoprazole. 13. Thrombocytosis most likely secondary to iron deficiency. Iron studies have been ordered. CODE STATUS: Full code. Discharge plan: [facility] Impression and plan of care have been directed as dictated by the signing physician. Brea Garcia nurse practitioner acting as scribe for signing physician.
[2018-12-17] MEDS: MIRTAZAPINE 15 MG TAB PO SCH (17:36)
--- NOTE | 2018-12-17 20:08 | P.PN ---
Subjective Progress Note Date: 12/17/18 Principal diagnosis: progressive metastatic colon adenocarcinoma Patient is laying in bed, lethargic, complaining of pain in the right leg, this is the same pain he had on diagnosis, his is at the bedside. Patient is eating very little sleeping most of the day Objective - Vital Signs Vital signs: Vital Signs Temp 98.0 F 12/17/18 19:33 Pulse 86 12/17/18 19:33 Resp 17 12/17/18 19:33 BP 125/90 12/17/18 19:33 Pulse Ox 100 12/17/18 19:33 Intake & Output 12/17/18 12/17/18 12/18/18 06:59 18:59 06:59 Intake Total 690 Balance 690 Intake: Intake, IV Titration 150 Amount Sodium Chloride 0.9% 1, 150 000 ml @ 75 mls/hr IV . [id number] [facility] Rx#:[id number] Oral 540 Other: Voiding Method Bedside Commode Bedside Commode # Voids 2 - Exam Thin, frail, cachectic male laying in bed, he is laying on his left side, his right leg is painful for him, patient is tired but he is oriented to self, place, time and his situation. Respirations are even and unlabored, no acute distress, abdomen is notably distended, there is atrophy in the right leg,patient did receive pain medication at the end of our conversation. - Labs CBC & Chem 7: 12/16/18 01:24 12/16/18 01:24 Labs: Abnormal Lab Results - Last 24 Hours (Table) 12/16/18 Range/Units 01:24 Carcinoembryonic Ag 31.8 H (0.0-4.9) ng/mL Microbiology - Last 24 Hours (Table) 12/16/18 01:45 Urine Culture - Preliminary Urine,Voided Group D Enterococcus 12/16/18 02:28 Blood Culture - Preliminary Blood No Growth after 24 hours Assessment and Plan (1) Colon cancer Current Visit: Yes Status: Acute Priority: High Code(s): C18.9 - MALIGNANT NEOPLASM OF COLON, UNSPECIFIED SNOMED Code(s): 416226262 (2) Weakness generalized Current Visit: Yes Status: Acute Priority: High Code(s): R53.1 - WEAKNESS SNOMED Code(s): 38284685 (3) Physical debility Current Visit: Yes Status: Acute Priority: High Code(s): R53.81 - OTHER MALAISE SNOMED Code(s): 86902409 (4) Leukocytosis Current Visit: Yes Status: Acute Priority: Medium Code(s): D72.829 - ELEVATED WHITE BLOOD CELL COUNT, UNSPECIFIED SNOMED Code(s): 977277168 (5) Anemia Current Visit: Yes Status: Acute Priority: Medium Code(s): D64.9 - ANEMIA, UNSPECIFIED SNOMED Code(s): 636283478 (6) Thrombocytosis Current Visit: Yes Status: Acute Priority: Medium Code(s): D47.3 - ESSENTIAL (HEMORRHAGIC) THROMBOCYTHEMIA SNOMED Code(s): 9894321 Plan: reater than 35 minutes was spent of which greater than 50% was spent counseling and coordinating care Summarized the last several months of patient's medical care. Patient has failed multiple lines of chemotherapy. His last treatment was in August 2018. Since that time he has had several hospitalizations for similar symptoms- inability to tolerate oral intake, nausea, constipatio...he had a prolonged hospitalization last month with weakness that required rehabilitation. Patient was discharged from rehabilitation last week with only minimal improvement, tammy moreno did fall twice at home and is now back in the hospital. He was too weak to go to his scheduled PET scan, he was unable to lay for CT scan today. Patient's pain in his right leg is increasing, this was his presenting symptom when he was diagnosed. We reviewed that there are no treatment options that could provide patient with any significant relief from symptoms of malignancy. Patient is also in no physical shape to tolerate treatment for malignancy. We discussed end of life goals, wants and needs. Patient is requesting completion of treatment for urinary tract infection, which is reasonable. Patient is agreeable to talk with hospice house corporate sales representative as it was felt that this would be the safest environment for him as well as the best environment for his family to be able to enjoy him versus having to provide all aspects of his care. Time with Patient: Greater than 30
[2018-12-18] MEDS: HYDROmorphone 1 MG/ML 1 ML SYRINGE IVP PRN ×6 (04:07→21:48)
[2018-12-18] MEDS: PROCHLORPERAZINE 5 MG TAB PO SCH ×4 (05:17→16:39)
--- NOTE | 2018-12-18 07:42 | P.PN ---
Subjective Progress Note Date: 12/17/18 This is a 58-year-old male patient with history of adenocarcinoma of the sigmoid status post subtotal colectomy with ileorectal anastomosis in 2013, colonoscopy on 05/12/2015 revealed tibular adenoma in the rectum which was removed. December 2015 he was positive for DVT and he was started on eliquis. He underwent CT scan of abdomen/pelvis on 02/22/2016 which revealed 9.4x5.5cm mass in righ pelvis causing significant hydronephrosis. Cystoscopy and ureteral stent placement was attempted but stent could not be placed. On 02/27/2016, FNA of the pelvic mass was positive for adenocarcinoma consistent with colon primary. PET scan revealed very large right pelvic mass invading the sacrum with multiple lung lesions and hilar nodes. He had right nephrostomy tube placed at and he was also evaluated by oncology at on 03/14/2016 and recommended systemic therapy first. He completed 10 cycles of mFOLFOX. Repeat PET scan on 09/08/2016 revealed disease progression in his pelvis and he completed 11 cycles of FOLFIRI/Avastin on 02/26/2017 (he declined the last cycle). He started maintenance xeloda/avastin he ended up with bleeding in his kidney and retroperitoneal hemorrhage and treated at [facility]. Repeat PET scan in July 2017 revealed progression of his disease in the pelvis with chronic right hydronephrosis. He has been intermittently on Xeloda/Avastin. In August of this year, he started Avastin/FOLFIRI. He had a recent hospitalization for October 22 through November 03 for abdominal pain and diarrhea secondary to chemotherapy or enteritis and acute kidney injury with dehydration with complaints of generalized abdominal pain, lack of appetite and inability to keep food down. He was treated with TPN and started on Remeron and eventually discharged home. Patient then had a readmission on November 07 through November 19 at which time ID became involved due to enterococcus urinary tract infection was discharged on Zosyn for 7 days. Patient has been discharged from [facility] for proximally 3 weeks it is now complaining of nausea without vomiting, lack of appetite and not eating for the past 1 week. Patient denies having any abdominal pain and denies fever at home along with exertional dyspnea. Patient came into [facility] emergency center for evaluation and found to have white count 14.9, hemoglobin 9.8, platelet count 542. Sodium 135, potassium 4.0, chloride 97, CO2 20, BUN 21 creatinine 0.94, blood sugar 144. He was afebrile, heart rate in the low 100s. Initial lactic acid 3.4. Urinalysis cloudy with leukoesterase large, nitrate negative, wbc's greater than 182 in clumps moderate. Patient was provided Levaquin, Rocephin, 2 L of IV fluid and [facility]. He is currently on IV antibiotics with Zosyn. 12/17/2018 patient remains ill with his complex illness cultures are being reviewed. Objective - Vital Signs Vital signs: Vital Signs Temp 98.1 F 12/18/18 01:07 Pulse 68 12/18/18 01:07 Resp 17 12/18/18 01:07 BP 128/68 12/18/18 01:07 Pulse Ox 95 12/18/18 01:07 Intake & Output 12/17/18 12/18/18 12/18/18 18:59 06:59 18:59 Intake Total 1300 Balance 1300 Intake: Intake, IV Titration 900 Amount Sodium Chloride 0.9% 1, 900 000 ml @ 75 mls/hr IV . [id number] [facility] Rx#:[id number] Oral 400 Other: Voiding Method Bedside Commode Bedside Commode Diaper # Voids 2 2 # Emeses 3 - Exam Gen: This is a thin cachectic appearing 58-year-old male. He is resting in bed and appears to be uncomfortable but denies abdominal pain. He does complain of anxiety. HEENT: Head is atraumatic, normocephalic. Pupils equal, round. Sclerae is anicteric. NECK: Supple. No JVD. No lymphadenopathy. No thyromegaly. LUNGS: Clear to auscultation. No wheezes or rhonchi. No intercostal retractions. HEART: Regular rate and rhythm. No murmur. ABDOMEN: Soft. Bowel sounds are present. No masses. No tenderness. EXTREMITIES: No pedal edema. No calf tenderness. NEUROLOGICAL: Patient is awake, alert and oriented x3. Cranial nerves 2 through 12 are grossly intact. - Labs CBC & Chem 7: 12/16/18 01:24 12/16/18 01:24 Labs: Microbiology - Last 24 Hours (Table) 12/16/18 02:28 Blood Culture - Preliminary Blood No Growth after 48 hours 12/16/18 01:45 Urine Culture - Preliminary Urine,Voided Group D Enterococcus Laboratory Results WBC 14.9 k/uL (3.8-10.6) H 12/16/18 01:24 RBC 3.96 m/uL (4.30-5.90) L 12/16/18 01:24 Hgb 9.8 gm/dL (13.0-17.5) L D 12/16/18 01:24 Hct 33.2 % (39.0-53.0) L 12/16/18 01:24 MCV 83.7 fL (80.0-100.0) 12/16/18 01:24 MCH 24.7 pg (25.0-35.0) L 12/16/18 01:24 MCHC 29.6 g/dL (31.0-37.0) L 12/16/18 01:24 RDW 17.6 % (11.5-15.5) H 12/16/18 01:24 Plt Count 542 k/uL (150-450) H 12/16/18 01:24 Neutrophils % 89 % 12/16/18 01:24 Lymphocytes % 7 % 12/16/18 01:24 Monocytes % 3 % 12/16/18 01:24 Eosinophils % 1 % 12/16/18 01:24 Basophils % 0 % 12/16/18 01:24 Neutrophils # 13.2 k/uL (1.3-7.7) H 12/16/18 01:24 Lymphocytes # 1.1 k/uL (1.0-4.8) 12/16/18 01:24 Monocytes # 0.4 k/uL (0-1.0) 12/16/18 01:24 Eosinophils # 0.1 k/uL (0-0.7) 12/16/18 01:24 Basophils # 0.0 k/uL (0-0.2) 12/16/18 01:24 Hypochromasia Marked 12/16/18 01:24 Anisocytosis Slight 12/16/18 01:24 PT 13.7 sec (9.0-12.0) H 12/16/18 01:24 INR 1.3 (<1.2) H 12/16/18 01:24 APTT 32.8 sec (22.0-30.0) H 12/16/18 01:24 Sodium 135 mmol/L (137-145) L 12/16/18 01:24 Potassium 4.0 mmol/L (3.5-5.1) 12/16/18 01:24 Chloride 97 mmol/L (98-107) L 12/16/18 01:24 Carbon Dioxide 20 mmol/L (22-30) L 12/16/18 01:24 Anion Gap 18 mmol/L 12/16/18 01:24 BUN 21 mg/dL (9-20) H 12/16/18 01:24 Creatinine 0.94 mg/dL (0.66-1.25) 12/16/18 01:24 Est GFR (CKD-EPI)AfAm >90 (>60 ml/min/1.73 sqM) 12/16/18 01:24 Est GFR (CKD-EPI)NonAf 88 (>60 ml/min/1.73 sqM) 12/16/18 01:24 Glucose 144 mg/dL (74-99) H 12/16/18 01:24 Lactic Ac Sepsis Rflx Y 12/16/18 01:52 Plasma Lactic Acid Ruel 2.1 mmol/L (0.7-2.0) H* 12/16/18 05:05 Calcium 9.5 mg/dL (8.4-10.2) 12/16/18 01:24 Magnesium 2.0 mg/dL (1.6-2.3) 12/16/18 01:24 Total Bilirubin 0.9 mg/dL (0.2-1.3) 12/16/18 01:24 AST 55 U/L (17-59) 12/16/18 01:24 ALT 27 U/L (21-72) 12/16/18 01:24 Alkaline Phosphatase 360 U/L (38-126) H 12/16/18 01:24 Total Protein 8.6 g/dL (6.3-8.2) H 12/16/18 01:24 Albumin 3.9 g/dL (3.5-5.0) 12/16/18 01:24 Carcinoembryonic Ag 31.8 ng/mL (0.0-4.9) H 12/16/18 01:24 Urine Color Yellow 12/16/18 01:45 Urine Appearance Cloudy (Clear) 12/16/18 01:45 Urine pH 5.5 (5.0-8.0) 12/16/18 01:45 Ur Specific [place] 1.031 (1.001-1.035) 12/16/18 01:45 Urine Protein 2+ (Negative) H 12/16/18 01:45 Urine Glucose (UA) Negative (Negative) 12/16/18 01:45 Urine Ketones Negative (Negative) 12/16/18 01:45 Urine Blood Small (Negative) H 12/16/18 01:45 Urine Nitrite Negative (Negative) 12/16/18 01:45 Urine Bilirubin Negative (Negative) 12/16/18 01:45 Urine Urobilinogen 2.0 mg/dL (<2.0) 12/16/18 01:45 Ur Leukocyte Esterase Large (Negative) H 12/16/18 01:45 Urine RBC 22 /hpf (0-5) H 12/16/18 01:45 Urine WBC >182 /hpf (0-5) H 12/16/18 01:45 Urine WBC Clumps Moderate /hpf (None) H 12/16/18 01:45 Ur Squamous Epith Cells 2 /hpf (0-4) 12/16/18 01:45 Urine Bacteria Many /hpf (None) H 12/16/18 01:45 Hyaline Casts 183 /lpf (0-2) H 12/16/18 01:45 Blood Type O Positive 12/16/18 01:24 Blood Type Recheck No 12/16/18 01:24 Antibody Screen NEGATIVE 12/16/18 01:24 Spec Expiration Date 12/19/2018232312/16/18 01:24 Microbiology 12/16/18 02:28 Blood Blood Culture - Preliminary No Growth after 48 hours 12/16/18 01:45 Urine,Voided Urine Culture - Preliminary Group D Enterococcus Assessment and Plan (1) Enterococcus UTI Narrative/Plan: Patient came into [facility] emergency [place] for evaluation and found to have white count 14.9, hemoglobin 9.8, platelet count 542. Sodium 135, potassium 4.0, chloride 97, CO2 20, BUN 21 creatinine 0.94, blood sugar 144. He was afebrile, heart rate in the low 100s. Initial lactic acid 3.4. Urinalysis cloudy with leukoesterase large, nitrate negative, wbc's greater than 182 in clumps moderate. Patient was provided Levaquin, Rocephin, 2 L of IV fluid and [facility]. He is currently on IV antibiotics with Zosyn. Please see the consult note dictated by nurse practitioner Brea Jose. The patient has been evaluated by the oncology team also, and continue to work toward most appropriate treatment protocol and plan. At this time likely has a urinary tract infection and constantly and like therapy directed against gram- negative pathogens and enterococcus is being utilized, Zosyn is an excellent choice for now while cultures are being finalized. As the patient improves will likely be transitioned from Zosyn to Augmentin to complete the course of treatment for his enterococcal urinary tract infection. Discharge plans are in process and it's a very difficult complex process. Current Visit: Yes Status: Acute Code(s): N39.0 - URINARY TRACT INFECTION, SITE NOT SPECIFIED; B95.2 - ENTEROCOCCUS THE CAUSE OF DISEASES CLASSIFIED ELSEWHERE SNOMED Code(s): 757712635012577
[2018-12-18] MEDS: MAG HYDROX/AL HYDROX/SIMETH 30 ML CUP PO SCH ×2 (08:25→08:36)
[2018-12-18] MEDS: diphenhydrAMINE 25 MG CAP PO SCH ×2 (08:36→14:59)
[2018-12-18] MEDS: SODIUM CHLORIDE 0.9% 1,000 ML IV SCH ×2 (08:37→22:16)
[2018-12-18] MEDS: PIPERACILLIN-TAZOBACTAM 3.375 GM VIAL IVPB SCH ×2 (08:38→15:07)
[2018-12-18] MEDS: APIXABAN 2.5 MG TABLET PO SCH ×2 (08:44→21:48)
[2018-12-18] MEDS: ALPRAZolam 0.25 MG TAB PO SCH ×3 (08:44→21:48)
[2018-12-18] MEDS: TAMSULOSIN 0.4 MG CAP.ER.24H PO SCH (08:44)
[2018-12-18] MEDS: GABAPENTIN 300 MG CAP PO SCH ×2 (08:44→21:48)
[2018-12-18] MEDS: DULoxetine HCL 30 MG CAPSULE.DR PO SCH (08:44)
[2018-12-18 09:32] LABS: Anisocytosis Slight; HCT 26.4 % (39.0-53.0); Hypochromasia Marked; MCH 25.5 pg (25.0-35.0); MCHC 30.1 g/dL (31.0-37.0); MCV 84.8 fL (80.0-100.0); Platelet Count 402 k/uL (150-450); RBC 3.11 m/uL (4.30-5.90); RDW 16.7 % (11.5-15.5); WBC 11.8 k/uL (3.8-10.6)
[2018-12-18 09:33] LABS: ALT 25 U/L (21-72); AST 35 U/L (17-59); Alkaline Phosphatase 225 U/L (38-126); Anion Gap 12 mmol/L; Blood Urea Nitrogen 16 mg/dL (9-20); Calcium 8.8 mg/dL (8.4-10.2); Carbon Dioxide 22 mmol/L (22-30); Chloride 102 mmol/L (98-107); Glucose 96 mg/dL (74-99); Potassium 3.6 mmol/L (3.5-5.1); Sodium 136 mmol/L (137-145); Total Bilirubin 0.6 mg/dL (0.2-1.3); Total Protein 6.7 g/dL (6.3-8.2)
[2018-12-18 09:38] LABS: HGB 7.9 gm/dL (13.0-17.5)
[2018-12-18] MEDS: oxyCODONE-APAP 10-325MG 1 EACH TAB PO PRN ×2 (10:22→16:38)
--- NOTE | 2018-12-18 14:01 | P.PN ---
Subjective Progress Note Date: 12/18/18 Principal diagnosis: Sepsis, abdominal pain, obstructive uropathy, urinary tract infection, metastasis take: Cancer end-stage, chronic pain syndrome, severe anemia, severe depression and chemotherapy cause neuropathy. Objective - Vital Signs Vital signs: Vital Signs Temp 98.3 F 12/18/18 07:00 Pulse 96 12/18/18 07:00 Resp 15 12/18/18 07:00 BP 101/66 12/18/18 07:00 Pulse Ox 100 12/18/18 07:00 Intake & Output 12/17/18 12/18/18 12/18/18 18:59 06:59 18:59 Intake Total 1300 525 Balance 1300 525 Intake: Intake, IV Titration 900 525 Amount Sodium Chloride 0.9% 1, 900 525 000 ml @ 75 mls/hr IV . [id number] [facility] Rx#:[id number] Oral 400 Other: Voiding Method Bedside Commode Bedside Commode Bedside Commode Diaper Diaper # Voids 2 2 # Emeses 3 - Exam Review of Systems CONSTITUTIONAL: Very debilitated looking, positive weakness, lethargy EYES: No icterus sclerae, no conjunctivitis. EARS, NOSE, MOUTH, THROAT, and FACE: No sore throat, lymphadenopathy, carotid bruits or deformity. RESPIRATORY: No SOB cough or wheezes. CARDIOVASCULAR: Mild tachycardia with no angina. GASTROINTESTINAL: Abdominal pain with nausea no vomiting positive constipation no sign of GI bleed. GENITOURINARY: UTI with obstructive uropathy no sign of stone. INTEGUMENT/BREAST: Negative for any muscular injury with mild osteoarthritis.. HEMATOLOGIC/LYMPHATIC: Advanced stage IV colon cancer with metastasis and obstructive uropathy caused by the metastasis in the pelvic area. MUSCULOSKELTAL: Negative for Myalgia or arthralgia. NEURLOGICAL: No LOC, Sz or syncope, blurred vision dizziness or abnormality.. BEHAVIORAL/PSYCH: Negative. ENDOCRINE: Negative. Physical examination: General Appearance: Alert, cooperative, no distress, appears stated age. Look very debilitated and lost a lot of weight. Neck HEENT: Supple, no lymphadenopathy, no thyroid enlargement, no carotid bruits. Lungs: Clear to auscultation without crackles or wheezes no rhonchi, no deformity. Chest Wall: Chest wall normal expansion with deep inspiration no tenderness and no deformity was found on exam, no costochondral pain or discomfort. Heart: Regular rate and rhythm, S1, S2 normal, no murmur, rub or gallop. Back: Symmetric, no curvature, ROM normal, no CVA tenderness. Abdomen: Soft slightly distended with significant decrease bowel sound positive tenderness in the midepigastric and left lower quadrant area with no rebound or rigidity. Extremities: Extremities normal, atraumatic, no cyanosis or edema. Pulses: 2+ and symmetric. Skin: Skin color, texture, tugor normal, no rashes or lesions. Neurologic: Alert oriented x3 cranial nerves II through XII intact, no motor deficit, no abnormal balance or gait. - Labs CBC & Chem 7: 12/18/18 08:37 12/18/18 08:37 Labs: Abnormal Lab Results - Last 24 Hours (Table) 12/18/18 12/18/18 Range/Units 08:37 08:37 WBC 11.8 H (3.8-10.6) k/uL RBC 3.11 L (4.30-5.90) m/uL Hgb 7.9 L D (13.0-17.5) gm/dL Hct 26.4 L (39.0-53.0) % MCHC 30.1 L (31.0-37.0) g/dL RDW 16.7 H (11.5-15.5) % Sodium 136 L (137-145) mmol/L Alkaline Phosphatase 225 H (38-126) U/L Albumin 3.0 L (3.5-5.0) g/dL Microbiology - Last 24 Hours (Table) 12/16/18 02:28 Blood Culture - Preliminary Blood No Growth after 48 hours 12/16/18 01:45 Urine Culture - Preliminary Urine,Voided Group D Enterococcus Assessment and Plan Plan: 1 sepsis: Much better and this month so far to the current antibiotics, patient seen Dr. Carter and agree to keep patient on Zosyn to complete total of 10 days to 2 weeks still waiting for the final culture result. 2 abdominal pain with worsening symptoms: Combination of partial obstruction along with adhesion and metastasis pressure, continue to treat pain, continue hydration consult general surgery. Symptoms are not any better weight control pain by advanced pain management today. 3 advanced stage IV colon cancer with metastasis: Patient could not be on any chemotherapy in the last few months he is performance status very low and not doing well. Lungs discussion with patient and his family about palliative care and furthermore hospice they're meeting with hospice today for the second time for further management. Her concern and his concern still his pain management is not well taking care of will start fentanyl patch 25 g titrate to 50 by Friday and keep patient on Dilaudid on an as-needed basis. 4 obstructive uropathy: With metastasis causing worsening symptom on the left than the right side had seen urology not been able to use stent not been able to do any surgical intervention on at. 5 severe dehydration: Continue IV antibiotics for now. 6 severe anxiety attack panic and severe depression: Patient Remeron will increase to 30 mg bedtime started Xanax 0.25 mg 3 times a day [id number] and add duloxetine 30 mg daily. With medication patient is doing much better so far. 7 neuropathy: Mostly chemotherapy related continue gabapentin 300 mg twice a day seems to do slightly better with it. 8 iron deficiency anemia: Post transfusion blood count is slightly bit better continue iron supplement. 9 chronic pain syndrome: Start fentanyl 25 g daily, continue Percocet and continue Dilaudid for breakthrough pain final plan to keep titrating fentanyl and keep patient on hydrocodone or morphine oral suspension as needed for breakthrough pain. 10 obstructive uropathy and BPH: Continue Flomax 0.4 mg daily no need for any catheter at this point. 11 history of DVT: Still on Eliquis 2.5 mg twice a day
--- NOTE | 2018-12-18 23:00 | P.PN ---
Subjective Progress Note Date: 12/18/18 This is a 58-year-old male patient with history of adenocarcinoma of the sigmoid status post subtotal colectomy with ileorectal anastomosis in 2013, colonoscopy on 05/12/2015 revealed tibular adenoma in the rectum which was removed. December 2015 he was positive for DVT and he was started on eliquis. He underwent CT scan of abdomen/pelvis on 02/22/2016 which revealed 9.4x5.5cm mass in righ pelvis causing significant hydronephrosis. Cystoscopy and ureteral stent placement was attempted but stent could not be placed. On 02/27/2016, FNA of the pelvic mass was positive for adenocarcinoma consistent with colon primary. PET scan revealed very large right pelvic mass invading the sacrum with multiple lung lesions and hilar nodes. He had right nephrostomy tube placed at and he was also evaluated by oncology at on 03/14/2016 and recommended systemic therapy first. He completed 10 cycles of mFOLFOX. Repeat PET scan on 09/08/2016 revealed disease progression in his pelvis and he completed 11 cycles of FOLFIRI/Avastin on 02/26/2017 (he declined the last cycle). He started maintenance xeloda/avastin he ended up with bleeding in his kidney and retroperitoneal hemorrhage and treated at [facility]. Repeat PET scan in July 2017 revealed progression of his disease in the pelvis with chronic right hydronephrosis. He has been intermittently on Xeloda/Avastin. In August of this year, he started Avastin/FOLFIRI. He had a recent hospitalization for October 22 through November 03 for abdominal pain and diarrhea secondary to chemotherapy or enteritis and acute kidney injury with dehydration with complaints of generalized abdominal pain, lack of appetite and inability to keep food down. He was treated with TPN and started on Remeron and eventually discharged home. Patient then had a readmission on November 07 through November 19 at which time ID became involved due to enterococcus urinary tract infection was discharged on Zosyn for 7 days. Patient has been discharged from [facility] for proximally 3 weeks it is now complaining of nausea without vomiting, lack of appetite and not eating for the past 1 week. Patient denies having any abdominal pain and denies fever at home along with exertional dyspnea. Patient came into [facility] emergency center for evaluation and found to have white count 14.9, hemoglobin 9.8, platelet count 542. Sodium 135, potassium 4.0, chloride 97, CO2 20, BUN 21 creatinine 0.94, blood sugar 144. He was afebrile, heart rate in the low 100s. Initial lactic acid 3.4. Urinalysis cloudy with leukoesterase large, nitrate negative, wbc's greater than 182 in clumps moderate. Patient was provided Levaquin, Rocephin, 2 L of IV fluid and [facility]. He is currently on IV antibiotics with Zosyn. 12/17/2018 patient remains ill with his complex illness cultures are being reviewed. 12/18/2018 patient remains ill. His is aware of his declining status. Objective - Vital Signs Vital signs: Vital Signs Temp 97.8 F 12/18/18 19:38 Pulse 79 12/18/18 19:38 Resp 17 12/18/18 20:18 BP 106/72 12/18/18 19:38 Pulse Ox 100 12/18/18 19:38 Intake & Output 12/18/18 12/18/18 12/19/18 06:59 18:59 06:59 Intake Total 1300 525 Balance 1300 525 Intake: Intake, IV Titration 900 525 Amount Sodium Chloride 0.9% 1, 900 525 000 ml @ 75 mls/hr IV . [id number] [facility] Rx#:[id number] Oral 400 Other: Voiding Method Bedside Commode Bedside Commode Diaper Diaper # Voids 2 3 # Bowel Movements 3 # Emeses 3 - Exam Gen: This is a thin cachectic appearing 58-year-old male. He is resting in bed and appears to be uncomfortable but denies abdominal pain. He does complain of anxiety. HEENT: Head is atraumatic, normocephalic. Pupils equal, round. Sclerae is anicteric. NECK: Supple. No JVD. No lymphadenopathy. No thyromegaly. LUNGS: Clear to auscultation. No wheezes or rhonchi. No intercostal retractions. HEART: Regular rate and rhythm. No murmur. ABDOMEN: Soft. Bowel sounds are present. No masses. No tenderness. EXTREMITIES: No pedal edema. No calf tenderness. NEUROLOGICAL: Patient is awake, alert and oriented x3. Cranial nerves 2 through 12 are grossly intact. - Labs CBC & Chem 7: 12/18/18 08:37 12/18/18 08:37 Labs: Abnormal Lab Results - Last 24 Hours (Table) 12/18/18 12/18/18 Range/Units 08:37 08:37 WBC 11.8 H (3.8-10.6) k/uL RBC 3.11 L (4.30-5.90) m/uL Hgb 7.9 L D (13.0-17.5) gm/dL Hct 26.4 L (39.0-53.0) % MCHC 30.1 L (31.0-37.0) g/dL RDW 16.7 H (11.5-15.5) % Sodium 136 L (137-145) mmol/L Alkaline Phosphatase 225 H (38-126) U/L Albumin 3.0 L (3.5-5.0) g/dL Microbiology - Last 24 Hours (Table) 12/16/18 01:45 Urine Culture - Final Urine,Voided Enterococcus faecalis 12/16/18 02:28 Blood Culture - Preliminary Blood No Growth after 48 hours Laboratory Results WBC 11.8 k/uL (3.8-10.6) H 12/18/18 08:37 RBC 3.11 m/uL (4.30-5.90) L 12/18/18 08:37 Hgb 7.9 gm/dL (13.0-17.5) L D 12/18/18 08:37 Hct 26.4 % (39.0-53.0) L 12/18/18 08:37 MCV 84.8 fL (80.0-100.0) 12/18/18 08:37 MCH 25.5 pg (25.0-35.0) 12/18/18 08:37 MCHC 30.1 g/dL (31.0-37.0) L 12/18/18 08:37 RDW 16.7 % (11.5-15.5) H 12/18/18 08:37 Plt Count 402 k/uL (150-450) 12/18/18 08:37 Neutrophils % 89 % 12/16/18 01:24 Lymphocytes % 7 % 12/16/18 01:24 Monocytes % 3 % 12/16/18 01:24 Eosinophils % 1 % 12/16/18 01:24 Basophils % 0 % 12/16/18 01:24 Neutrophils # 13.2 k/uL (1.3-7.7) H 12/16/18 01:24 Lymphocytes # 1.1 k/uL (1.0-4.8) 12/16/18 01:24 Monocytes # 0.4 k/uL (0-1.0) 12/16/18 01:24 Eosinophils # 0.1 k/uL (0-0.7) 12/16/18 01:24 Basophils # 0.0 k/uL (0-0.2) 12/16/18 01:24 Hypochromasia Marked 12/18/18 08:37 Anisocytosis Slight 12/18/18 08:37 PT 13.7 sec (9.0-12.0) H 12/16/18 01:24 INR 1.3 (<1.2) H 12/16/18 01:24 APTT 32.8 sec (22.0-30.0) H 12/16/18 01:24 Sodium 136 mmol/L (137-145) L 12/18/18 08:37 Potassium 3.6 mmol/L (3.5-5.1) 12/18/18 08:37 Chloride 102 mmol/L (98-107) 12/18/18 08:37 Carbon Dioxide 22 mmol/L (22-30) 12/18/18 08:37 Anion Gap 12 mmol/L 12/18/18 08:37 BUN 16 mg/dL (9-20) 12/18/18 08:37 Creatinine 0.68 mg/dL (0.66-1.25) 12/18/18 08:37 Est GFR (CKD-EPI)AfAm >90 (>60 ml/min/1.73 sqM) 12/18/18 08:37 Est GFR (CKD-EPI)NonAf >90 (>60 ml/min/1.73 sqM) 12/18/18 08:37 Glucose 96 mg/dL (74-99) 12/18/18 08:37 Lactic Ac Sepsis Rflx Y 12/16/18 01:52 Plasma Lactic Acid [place]uel 2.1 mmol/L (0.7-2.0) H* 12/16/18 05:05 Calcium 8.8 mg/dL (8.4-10.2) 12/18/18 08:37 Magnesium 2.0 mg/dL (1.6-2.3) 12/16/18 01:24 Total Bilirubin 0.6 mg/dL (0.2-1.3) 12/18/18 08:37 AST 35 U/L (17-59) 12/18/18 08:37 ALT 25 U/L (21-72) 12/18/18 08:37 Alkaline Phosphatase 225 U/L (38-126) H 12/18/18 08:37 Total Protein 6.7 g/dL (6.3-8.2) 12/18/18 08:37 Albumin 3.0 g/dL (3.5-5.0) L 12/18/18 08:37 Carcinoembryonic Ag 31.8 ng/mL (0.0-4.9) H 12/16/18 01:24 Urine Color Yellow 12/16/18 01:45 Urine Appearance Cloudy (Clear) 12/16/18 01:45 Urine pH 5.5 (5.0-8.0) 12/16/18 01:45 Ur Specific [place] 1.031 (1.001-1.035) 12/16/18 01:45 Urine Protein 2+ (Negative) H 12/16/18 01:45 Urine Glucose (UA) Negative (Negative) 12/16/18 01:45 Urine Ketones Negative (Negative) 12/16/18 01:45 Urine Blood Small (Negative) H 12/16/18 01:45 Urine Nitrite Negative (Negative) 12/16/18 01:45 Urine Bilirubin Negative (Negative) 12/16/18 01:45 Urine Urobilinogen 2.0 mg/dL (<2.0) 12/16/18 01:45 Ur Leukocyte Esterase Large (Negative) H 12/16/18 01:45 Urine RBC 22 /hpf (0-5) H 12/16/18 01:45 Urine WBC >182 /hpf (0-5) H 12/16/18 01:45 Urine WBC Clumps Moderate /hpf (None) H 12/16/18 01:45 Ur Squamous Epith Cells 2 /hpf (0-4) 12/16/18 01:45 Urine Bacteria Many /hpf (None) H 12/16/18 01:45 Hyaline Casts 183 /lpf (0-2) H 12/16/18 01:45 C. difficile (EIA) Intrp Negative (Negative) 12/18/18 14:30 Blood Type O Positive 12/16/18 01:24 Blood Type Recheck No 12/16/18 01:24 Antibody Screen Microbiology 12/16/18 01:45 Urine,Voided Urine Culture - Final Enterococcus faecalis 12/16/18 02:28 Blood Blood Culture - Preliminary No Growth after 48 hours NEGATIVE 12/16/18 01:24 Spec Expiration Date 12/19/2018232312/16/18 01:24 Assessment and Plan (1) Enterococcus UTI Narrative/Plan: Patient came into [facility] emergency center for evaluation and found to have white count 14.9, hemoglobin 9.8, platelet count 542. Sodium 135, potassium 4.0, chloride 97, CO2 20, BUN 21 creatinine 0.94, blood sugar 144. He was afebrile, heart rate in the low 100s. Initial lactic acid 3.4. Urinalysis cloudy with leukoesterase large, nitrate negative, wbc's greater than 182 in clumps moderate. Patient was provided Levaquin, Rocephin, 2 L of IV fluid and was admitted to the [facility] floor. He is currently on IV antibiotics with Zosyn. Please see the consult note dictated by nurse practitioner Mrs. Brea Garcia. The patient has been evaluated by the oncology team also, and continue to work toward most appropriate treatment protocol and plan. At this time likely has a urinary tract infection and constantly and like therapy directed against gram- negative pathogens and enterococcus is being utilized, Zosyn is an excellent choice for now while cultures are being finalized. As the patient improves will likely be transitioned from Zosyn to Augmentin to complete the course of treatment for his enterococcal urinary tract infection. Discharge plans are in process and it's a very difficult complex process. 12/18/2018 patient with little change of his status. If the patient is to go home in the near future possibly with hospice he could complete a course of oral antibiotic therapy with Augmentin. The overall situation is discussed with the and understands his very advanced status. Current Visit: Yes Status: Acute Code(s): N39.0 - URINARY TRACT INFECTION, SITE NOT SPECIFIED; B95.2 - ENTEROCOCCUS THE CAUSE OF DISEASES CLASSIFIED ELSEWHERE SNOMED Code(s): 667920183979564
[2018-12-19] MEDS: diphenhydrAMINE 25 MG CAP PO SCH ×2 (01:44→08:47)
[2018-12-19] MEDS: MIRTAZAPINE 15 MG TAB PO SCH (01:44)
[2018-12-19] MEDS: PROCHLORPERAZINE 5 MG TAB PO SCH ×3 (01:44→15:16)
[2018-12-19] MEDS: oxyCODONE-APAP 10-325MG 1 EACH TAB PO PRN ×2 (01:45→08:47)
[2018-12-19] MEDS: PIPERACILLIN-TAZOBACTAM 3.375 GM VIAL IVPB SCH ×2 (01:48→08:46)
[2018-12-19] MEDS: MAG HYDROX/AL HYDROX/SIMETH 30 ML CUP PO SCH ×2 (01:53→09:50)
[2018-12-19 08:03] VITALS: BP 98/65; PULSE 73; RESP 20; TEMP 97.5
[2018-12-19] MEDS: DULoxetine HCL 30 MG CAPSULE.DR PO SCH (08:47)
[2018-12-19] MEDS: TAMSULOSIN 0.4 MG CAP.ER.24H PO SCH (08:47)
[2018-12-19] MEDS: APIXABAN 2.5 MG TABLET PO SCH (08:47)
[2018-12-19] MEDS: GABAPENTIN 300 MG CAP PO SCH (08:47)
[2018-12-19] MEDS: ALPRAZolam 0.25 MG TAB PO SCH (08:48)
--- NOTE | 2018-12-19 10:01 | P.PN ---
Subjective Progress Note Date: 12/19/18 Principal diagnosis: Sepsis, abdominal pain, obstructive uropathy, urinary tract infection, metastasis take: Cancer end-stage, chronic pain syndrome, severe anemia, severe depression and chemotherapy cause neuropathy. This is a 58-year-old male patient with history of adenocarcinoma of the sigmoid status post subtotal colectomy with ileorectal anastomosis in 2013, colonoscopy on 05/12/2015 revealed tibular adenoma in the rectum which was removed. December 2015 he was positive for DVT and he was started on eliquis. He underwent CT scan of abdomen/pelvis on 02/22/2016 which revealed 9.4x5.5cm mass in righ pelvis causing significant hydronephrosis. Cystoscopy and ureteral stent placement was attempted but stent could not be placed. On 02/27/2016, FNA of the pelvic mass was positive for adenocarcinoma consistent with colon primary. PET scan revealed very large right pelvic mass invading the sacrum with multiple lung lesions and hilar nodes. He had right nephrostomy tube placed at and he was also evaluated by oncology at on 03/14/2016 and recommended systemic therapy first. He completed 10 cycles of mFOLFOX. Repeat PET scan on 09/08/2016 revealed disease progression in his pelvis and he completed 11 cycles of FOLFIRI/Avastin on 02/26/2017 (he declined the last cycle). He started maintenance xeloda/avastin he ended up with bleeding in his kidney and r etroperitoneal hemorrhage and treated at [facility]. Repeat PET scan in July 2017 revealed progression of his disease in the pelvis with chronic right hydronephrosis. He has been intermittently on Xeloda/Avastin. In August of this year, he started Avastin/FOLFIRI. He had a recent hospitalization for October 22 through November 03 for abdominal pain and diarrhea secondary to chemotherapy or enteritis and acute kidney injury with dehydration with complaints of generalized abdominal pain, lack of appetite and inability to keep food down. He was treated with TPN and started on Remeron and eventually discharged home. Patient then had a readmission on November 07 through November 19 at which time ID became involved due to enterococcus urinary tract infection was discharged on Zosyn for 7 days. Patient has been discharged from [facility] for proximally 3 weeks it is now complaining of nausea without vomiting, lack of appetite and not eating for the past 1 week. Patient denies having any abd ominal pain and denies fever at home along with exertional dyspnea. Patient came into [facility] emergency center for evaluation and found to have white count 14.9, hemoglobin 9.8, platelet count 542. Sodium 135, potassium 4.0, chloride 97, CO2 20, BUN 21 creatinine 0.94, blood sugar 144. He was afebrile, heart rate in the low 100s. Initial lactic acid 3.4. Urinalysis cloudy with leukoesterase large, nitrate negative, wbc's greater than 182 in clumps moderate. Patient was provided Levaquin, Rocephin, 2 L of IV fluid and was admitted to the [facility] floor. He is currently on IV antibiotics with Zosyn. 12/19: Patient is doing slightly but better was started on fentanyl patch yesterday and to think his pain slightly better he still very drowsy and sleepy is not ready to titrate medication at this point. Apparently the family are meeting with hospice again today. His appetite still significantly low is not eating much. Objective - Vital Signs Vital signs: Vital Signs Temp 97.5 F L 12/19/18 07:00 Pulse 73 12/19/18 07:00 Resp 20 12/19/18 07:00 BP 98/65 12/19/18 07:00 Pulse Ox 100 12/19/18 07:00 Intake & Output 12/18/18 12/19/18 12/19/18 18:59 06:59 18:59 Intake Total 525 Balance 525 Intake: Intake, IV Titration 525 Amount Sodium Chloride 0.9% 1, 525 000 ml @ 75 mls/hr IV . [id number] [facility] Rx#:[id number] Other: Voiding Method Bedside Commode Bedside Commode Diaper Diaper # Voids 2 # Bowel Movements 3 - Exam Review of Systems CONSTITUTIONAL: Very debilitated looking, positive weakness, lethargy EYES: No icterus sclerae, no conjunctivitis. EARS, NOSE, MOUTH, THROAT, and FACE: No sore throat, lymphadenopathy, carotid bruits or deformity. RESPIRATORY: No SOB cough or wheezes. CARDIOVASCULAR: Mild tachycardia with no angina. GASTROINTESTINAL: Abdominal pain with nausea no vomiting positive constipation no sign of GI bleed. GENITOURINARY: UTI with obstructive uropathy no sign of stone. INTEGUMENT/BREAST: Negative for any muscular injury with mild osteoarthritis.. HEMATOLOGIC/LYMPHATIC: Advanced stage IV colon cancer with metastasis and obstructive uropathy caused by the metastasis in the pelvic area. MUSCULOSKELTAL: Negative for Myalgia or arthralgia. NEURLOGICAL: No LOC, Sz or syncope, blurred vision dizziness or abnormality.. BEHAVIORAL/PSYCH: Negative. ENDOCRINE: Negative. Physical examination: General Appearance: Alert, cooperative, no distress, appears stated age. Look very debilitated and lost a lot of weight. Neck HEENT: Supple, no lymphadenopathy, no thyroid enlargement, no carotid bruits. Lungs: Clear to auscultation without crackles or wheezes no rhonchi, no deformity. Chest Wall: Chest wall normal expansion with deep inspiration no tenderness and no deformity was found on exam, no costochondral pain or discomfort. Heart: Regular rate and rhythm, S1, S2 normal, no murmur, rub or gallop. Back: Symmetric, no curvature, ROM normal, no CVA tenderness. Abdomen: Soft slightly distended with significant decrease bowel sound positive tenderness in the midepigastric and left lower quadrant area with no rebound or rigidity. Extremities: Extremities normal, atraumatic, no cyanosis or edema. Pulses: 2+ and symmetric. Skin: Skin color, texture, tugor normal, no rashes or lesions. Neurologic: Alert oriented x3 cranial nerves II through XII intact, no motor deficit, no abnormal balance or gait. - Labs CBC & Chem 7: 12/18/18 08:37 12/18/18 08:37 Labs: Abnormal Lab Results - Last 24 Hours (Table) 12/18/18 12/18/18 Range/Units 08:37 08:37 WBC 11.8 H (3.8-10.6) k/uL RBC 3.11 L (4.30-5.90) m/uL Hgb 7.9 L D (13.0-17.5) gm/dL Hct 26.4 L (39.0-53.0) % MCHC 30.1 L (31.0-37.0) g/dL RDW 16.7 H (11.5-15.5) % Sodium 136 L (137-145) mmol/L Alkaline Phosphatase 225 H (38-126) U/L Albumin 3.0 L (3.5-5.0) g/dL Microbiology - Last 24 Hours (Table) 12/16/18 02:28 Blood Culture - Preliminary Blood No Growth after 72 hours 12/16/18 01:45 Urine Culture - Final Urine,Voided Enterococcus faecalis Assessment and Plan Plan: 1 sepsis: Much better and this month so far to the current antibiotics, patient seen Dr. Carter and agree to keep patient on Zosyn to complete total of 10 days to 2 weeks still waiting for the final culture result. 2 abdominal pain with worsening symptoms: Combination of partial obstruction along with adhesion and metastasis pressure, continue to treat pain, continue hydration consult general surgery. Symptoms are not any better weight control pain by advanced pain management today. 3 advanced stage IV colon cancer with metastasis: Patient could not be on any chemotherapy in the last few months he is performance status very low and not doing well. Lungs discussion with patient and his family about palliative care and furthermore hospice they're meeting with hospice today for the second time f or further management. Her concern and his concern still his pain management is not well taking care of will start fentanyl patch 25 g titrate to 50 by Friday and keep patient on Dilaudid on an as-needed basis. 4 obstructive uropathy: With metastasis causing worsening symptom on the left than the right side had seen urology not been able to use stent not been able to do any surgical intervention on at. 5 severe dehydration: Continue IV antibiotics for now. 6 severe anxiety attack panic and severe depression: Patient Remeron will increase to 30 mg bedtime started Xanax 0.25 mg 3 times a day [id number] and add duloxetine 30 mg daily. With medication patient is doing much better so far. 7 neuropathy: Mostly chemotherapy related continue gabapentin 300 mg twice a day seems to do slightly better with it. 8 iron deficiency anemia: Post transfusion blood count is slightly bit better continue iron supplement. 9 chronic pain syndrome: Start fentanyl 25 g daily, continue Percocet and continue Dilaudid for breakthrough pain final plan to keep titrating fentanyl and keep patient on hydrocodone or morphine oral suspension as needed for breakthrough pain. 10 obstructive uropathy and BPH: Continue Flomax 0.4 mg daily no need for any catheter at this point. 11 history of DVT: Still on Eliquis 2.5 mg twice a day Patient's pain is much better controlled today is more drowsy sleepy but not anxious apparently family patient MET with hospice again today.
[2018-12-19] MEDS ORDERED: FLUCONAZOLE 100 MG TAB PO SCH (10:15)
[2018-12-19] MEDS ORDERED: CLOTRIMAZOLE TROCHE 10 MG TROCHE MUCOUS MEM SCH (11:00)
[2018-12-19] MEDS: HYDROmorphone 0.5 MG/0.5 ML SYRINGE IVP PRN ×2 (12:22→14:57)
[2018-12-19] MEDS: SODIUM CHLORIDE 0.9% 1,000 ML IV SCH (15:16)
== END 2018-12-19 15:30 | disposition hospice, inpatient (51) | DRG 872 ==
LOC: EC 00:17 → 4SSUR 02:33
PROVIDERS: ADMIT Internal Medicine Geriatric Medicine; ATTEND Internal Medicine Geriatric Medicine
DX: A41.81 Sepsis due to Enterococcus (principal); C79.51 Secondary malignant neoplasm of bone; N13.6 Pyonephrosis; C79.89 Secondary malignant neoplasm of other specified sites; N13.8 Other obstructive and reflux uropathy; E87.2 Acidosis; F33.2 Major depressive disorder, recurrent severe without psychotic features; R64 Cachexia; G62.0 Drug-induced polyneuropathy; E86.0 Dehydration; T45.1X5A Adverse effect of antineoplastic and immunosuppressive drugs, initial encounter; K66.0 Peritoneal adhesions (postprocedural) (postinfection); N40.1 Benign prostatic hyperplasia with lower urinary tract symptoms; D47.3 Essential (hemorrhagic) thrombocythemia; F41.0 Panic disorder [episodic paroxysmal anxiety]; D50.9 Iron deficiency anemia, unspecified; M79.604 Pain in right leg; G89.4 Chronic pain syndrome; Z79.01 Long term (current) use of anticoagulants; Z68.22 Body mass index [BMI] 22.0-22.9, adult; Z79.899 Other long term (current) drug therapy; Z91.81 History of falling; Z90.49 Acquired absence of other specified parts of digestive tract; Z86.718 Personal history of other venous thrombosis and embolism; Z86.19 Personal history of other infectious and parasitic diseases; Z85.038 Personal history of other malignant neoplasm of large intestine; Z88.8 Allergy status to other drugs, medicaments and biological substances; Z80.6 Family history of leukemia; Z84.82 Family history of sudden infant death syndrome; Z82.49 Family history of ischemic heart disease and other diseases of the circulatory system
CPT/HCPCS: 36415; 71046; 80053; 81001; 82378; 83605; 83735; 85025; 85027; 85610; 85730; 86850; 86900; 86901; 87040; 87077; 87086; 87186; 87324; 96361; 96365; 96375; 96376; 99285